=== PATIENT | female | born 1940 | race Caucasian/White ===

== ENCOUNTER 2020-09-21 15:48 | Observation (INO) | payer MEDICARE, OTHER ==
[2020-09-21] MEDS ORDERED: SODIUM CHLORIDE 0.9% 1,000 ML IV STA (16:35)
--- NOTE | 2020-09-21 16:38 | ED ---
General Adult HPI - General Chief complaint: Urogenital Stated complaint: Poss UTI/Chills Time Seen by Provider: 09/21/20 16:23 Source: patient Mode of arrival: wheelchair Limitations: no limitations - History of Present Illness Initial comments: Dictation was produced using [employer] dictation software. please excuse any grammatical, word or spelling errors. This patient was cared for during a federal and state declared state of emergency secondary to Covid 19 Chief Complaint: 80-year-old female past medical history of UTI sepsis, fi bromyalgia presents to the emergency department for nausea, urinary symptoms and chills. History of Present Illness: Patient is a 80-year-old female she's been having urinary symptoms for the last 2 days. She states she has history of UTI sepsis causing her to be hospitalized. She states that the time she was hospitalized she is having significant encephalopathy was admitted to the hospital for approximately 4-5 days. Her last today she's been having urinary symptoms. Evaluated at the urgent care and was started on Macrobid. Patient states that she was seen at urgent care last night. Today she started having constitutional symptoms. Her to come to the emergency department. She is accompanied by her daughter. Patient is afraid of becoming septic and prompting her to be more proactive about her health and coming to the emergency department today. She denies any respiratory symptoms. No cough sore throat and runny nose. The ROS documented in this emergency department record has been reviewed and confirmed by me. Those systems with pertinent positive or negative responses have been documented in the HPI. All other systems are other negative and/or noncontributory. PHYSICAL EXAM: General Impression: Alert and oriented x3, not in acute distress HEENT: Normocephalic atraumatic, extra-ocular movements intact, pupils equal and reactive to light bilaterally, mucous membranes moist. Cardiovascular: Heart regular rate and rhythm Chest: Able to complete full sentences, no retractions, no tachypnea Abdomen: abdomen soft, non-tender, non-distended, no organomegaly Musculoskeletal: Pulses present and equal in all extremities, no peripheral edema Motor: no focal deficits noted Neurological: CN II-XII grossly intact, no focal motor or sensory deficits noted Skin: Intact with no visualized rashes Psych: Normal affect and mood ED course: 80-year-old female presents with concerns of UTI sepsis. She was diagnosed with urinary tract infection at urgent care last night. She is currently on Macrobid. Vital Signs upon arrival are within acceptable limits. Physical examination is benign. Laboratory evaluation obtained. CBC unremarkable. Metabolic panel is for the most part unremarkable except for lactic acidosis of 2.9. Urinalysis shows 9 white blood cells were 19 squamous epithelial cells. Patient reevaluated bedside approximate 7:10 PM in stable medical condition. Patient however began complaining of epigastric abdominal pain. Her abdominal exam was positive for mild tenderness to palpation in the left upper quadrant region. Patient denies any history of abdominal surgery. Her abdominal labs are unremarkable. Acute abdominal series shows no acute processes. Patient given GI cocktail. Patient be admitted for Lactic acidosis and medical monitoring. Patient ordered for intravenous fluids case discussed with Sound physician Dr. Martin Was went except patient's care. EKG interpretation: Ventricular rate 1, normal sinus rhythm, VA interval 182, QRS 90, QTC 484. No VA prolongation, no QTC prolongation, no ST or T-wave changes noted. No old EKG for comparison. Overall, this EKG is unremarkable - Related Data Home Medications Medication Instructions Recorded Confirmed Allopurinol [Zyloprim] 100 mg PO DAILY 09/21/20 09/21/20 Aspirin EC [Ecotrin Low Dose] 81 mg PO DAILY 09/21/20 09/21/20 Baclofen [Lioresal] 10 mg PO HS 09/21/20 09/21/20 Ergocalciferol (Vitamin D2) 50 mcg PO DAILY 09/21/20 09/21/20 [Vitamin D2 (2000 Iu)] Famotidine [Pepcid] 20 mg PO HS 09/21/20 09/21/20 HYDROcodone/APAP 5-325MG [[place] 1 tab PO Q8H PRN 09/21/20 09/21/20 5-325] Losartan [Cozaar] 100 mg PO DAILY 09/21/20 09/21/20 Melatonin 10 mg PO HS 09/21/20 09/21/20 Morphine Sulfate ER [Ms Contin] 15 mg PO Q12HR 09/21/20 09/21/20 Multivitamins, Thera [Multivitamin 1 tab PO DAILY 09/21/20 09/21/20 (formulary)] Nitrofurantoin Monohyd/M-Cryst 100 mg PO Q12HR 09/21/20 09/21/20 [Macrobid] Omeprazole 40 mg PO DAILY 09/21/20 09/21/20 Pregabalin [Lyrica] 150 mg PO BID 09/21/20 09/21/20 Verapamil Sr [Isoptin Sr] 120 mg PO HS 09/21/20 09/21/20 Allergies Allergy/AdvReac Type Severity Reaction Status Date / Time cephalexin [From Keflex] AdvReac Rash/Hives Verified 09/21/20 16:59 clindamycin AdvReac Rash/Hives Verified 09/21/20 16:59 oxybutynin [From Ditropan] AdvReac Hallucinati Verified 09/21/20 16:59 ons Review of Systems ROS Statement: Those systems with pertinent positive or pertinent negative responses have been documented in the HPI. ROS Other: All systems not noted in ROS Statement are negative. Past Medical History Past Medical History: Hypertension Additional Past Medical History / Comment(s): UTI, fibromylagia, respiroaty failure History of Any Multi-Drug Resistant Organisms: None Reported Past Surgical History: Back Surgery Past Psychological History: No Psychological Hx Reported Smoking Status: Never smoker Past Alcohol Use History: None Reported Past Drug Use History: None Reported General Exam Limitations: no limitations Course Vital Signs 09/21/20 15:52 Temperature 97.5 F L Pulse Rate 95 Respiratory 18 Rate Blood Pressure 152/83 O2 Sat by Pulse 95 Oximetry Medical Decision Making - Lab Data Result diagrams: 09/21/20 16:36 09/21/20 16:36 Lab Results 09/21/20 09/21/20 09/21/20 Range/Units 16:36 16:36 16:36 WBC 6.6 (3.8-10.6) k/uL RBC 5.40 (3.80-5.40) m/uL Hgb 16.1 H (11.4-16.0) gm/dL Hct 48.1 H (34.0-46.0) % MCV 89.0 (80.0-100.0) fL MCH 29.9 (25.0-35.0) pg MCHC 33.5 (31.0-37.0) g/dL RDW 14.1 (11.5-15.5) % Plt Count 273 (150-450) k/uL MPV 7.6 Neutrophils % 71 % Lymphocytes % 17 % Monocytes % 7 % Eosinophils % 3 % Basophils % 1 % Neutrophils # 4.7 (1.3-7.7) k/uL Lymphocytes # 1.1 (1.0-4.8) k/uL Monocytes # 0.5 (0-1.0) k/uL Eosinophils # 0.2 (0-0.7) k/uL Basophils # 0.1 (0-0.2) k/uL Sodium 139 (137-145) mmol/L Potassium 4.5 (3.5-5.1) mmol/L Chloride 103 (98-107) mmol/L Carbon Dioxide 25 (22-30) mmol/L Anion Gap 11 mmol/L BUN 12 (7-17) mg/dL Creatinine 0.67 (0.52-1.04) mg/dL Est GFR (CKD-EPI)AfAm >90 (>60 ml/min/1.73 sqM) Est GFR (CKD-EPI)NonAf 85 (>60 ml/min/1.73 sqM) Glucose 149 H (74-99) mg/dL Lactic Ac Sepsis Rflx Plasma Lactic Acid [place]ico (0.7-2.0) mmol/L Calcium 10.2 (8.4-10.2) mg/dL Total Bilirubin 0.6 (0.2-1.3) mg/dL AST 39 H (14-36) U/L ALT 26 (4-34) U/L Alkaline Phosphatase 65 (38-126) U/L Total Protein 7.6 (6.3-8.2) g/dL Albumin 4.4 (3.5-5.0) g/dL Lipase 77 (23-300) U/L Urine Color Light Brown Urine Appearance Cloudy H (Clear) Urine pH 8.0 (5.0-8.0) Ur Specific [place] 1.020 (1.001-1.035) Urine Protein 1+ H (Negative) Urine Glucose (UA) Negative (Negative) Urine Ketones Negative (Negative) Urine Blood Negative (Negative) Urine Nitrite Negative (Negative) Urine Bilirubin Negative (Negative) Urine Urobilinogen <2.0 (<2.0) mg/dL Ur Leukocyte Esterase Trace H (Negative) Urine WBC 9 H (0-5) /hpf Ur Squamous Epith Cells 19 H (0-4) /hpf Urine Bacteria Rare H (None) /hpf Urine Mucus Rare H (None) /hpf 02/11/21 02/11/21 Range/Units 16:36 17:15 WBC (3.8-10.6) k/uL RBC (3.80-5.40) m/uL Hgb (11.4-16.0) gm/dL Hct (34.0-46.0) % MCV (80.0-100.0) fL MCH (25.0-35.0) pg MCHC (31.0-37.0) g/dL RDW (11.5-15.5) % Plt Count (150-450) k/uL MPV Neutrophils % % Lymphocytes % % Monocytes % % Eosinophils % % Basophils % % Neutrophils # (1.3-7.7) k/uL Lymphocytes # (1.0-4.8) k/uL Monocytes # (0-1.0) k/uL Eosinophils # (0-0.7) k/uL Basophils # (0-0.2) k/uL Sodium (137-145) mmol/L Potassium (3.5-5.1) mmol/L Chloride (98-107) mmol/L Carbon Dioxide (22-30) mmol/L Anion Gap mmol/L BUN (7-17) mg/dL Creatinine (0.52-1.04) mg/dL Est GFR (CKD-EPI)AfAm (>60 ml/min/1.73 sqM) Est GFR (CKD-EPI)NonAf (>60 ml/min/1.73 sqM) Glucose (74-99) mg/dL Lactic Ac Sepsis Rflx Y Plasma Lactic Acid [place] 2.9 H* (0.7-2.0) mmol/L Calcium (8.4-10.2) mg/dL Total Bilirubin (0.2-1.3) mg/dL AST (14-36) U/L ALT (4-34) U/L Alkaline Phosphatase (38-126) U/L Total Protein (6.3-8.2) g/dL Albumin (3.5-5.0) g/dL Lipase (23-300) U/L Urine Color Urine Appearance (Clear) Urine pH (5.0-8.0) Ur Specific [place] (1.001-1.035) Urine Protein (Negative) Urine Glucose (UA) (Negative) Urine Ketones (Negative) Urine Blood (Negative) Urine Nitrite (Negative) Urine Bilirubin (Negative) Urine Urobilinogen (<2.0) mg/dL Ur Leukocyte Esterase (Negative) Urine WBC (0-5) /hpf Ur Squamous Epith Cells (0-4) /hpf Urine Bacteria (None) /hpf Urine Mucus (None) /hpf Disposition Clinical Impression: Chills (without fever), Epigastric pain Disposition: ADMITTED IP TO THIS [facility] Condition: Fair Decision Time: 20:02
[2020-09-21 16:58] LABS: Basophils # (A) 0.1 k/uL (0-0.2); Basophils % (A) 1 %; Eosinophils # (A) 0.2 k/uL (0-0.7); Eosinophils % (A) 3 %; HCT 48.1 % (34.0-46.0); HGB 16.1 gm/dL (11.4-16.0); Lymphocytes # (A) 1.1 k/uL (1.0-4.8); Lymphocytes % (A) 17 %; MCH 29.9 pg (25.0-35.0); MCHC 33.5 g/dL (31.0-37.0); Mean Platelet Volume 7.6; Monocytes # (A) 0.5 k/uL (0-1.0); Monocytes % (A) 7 %; Neutrophils # (A) 4.7 k/uL (1.3-7.7); Neutrophils % (A) 71 %; Platelet Count 273 k/uL (150-450); RDW 14.1 % (11.5-15.5); WBC 6.6 k/uL (3.8-10.6)
[2020-09-21 17:09] LABS: ALT 26 U/L (4-34); AST 39 U/L (14-36); African American GFR (CKD) >90 (>60 ml/min/1.73 sqM); Albumin 4.4 g/dL (3.5-5.0); Alkaline Phosphatase 65 U/L (38-126); Anion Gap 11 mmol/L; Blood Urea Nitrogen 12 mg/dL (7-17); Calcium 10.2 mg/dL (8.4-10.2); Carbon Dioxide 25 mmol/L (22-30); Chloride 103 mmol/L (98-107); Glucose 149 mg/dL (74-99); Lipase 77 U/L (23-300); Non-African American GFR(CKD) 85 (>60 ml/min/1.73 sqM); Potassium 4.5 mmol/L (3.5-5.1); Sodium 139 mmol/L (137-145); Total Bilirubin 0.6 mg/dL (0.2-1.3); Total Protein 7.6 g/dL (6.3-8.2)
[2020-09-21 18:29] LABS: Appearance,Urine Cloudy (Clear); Bacteria,Urine Rare /hpf; Bilirubin,Urine Negative (Negative); Blood,Urine Negative (Negative); Color,Urine Light Brown; Glucose,Urine (UA) Negative (Negative); Ketones,Urine Negative (Negative); Leukocyte Esterase,Urine Trace (Negative); Mucus,Urine Rare /hpf; Nitrite,Urine Negative (Negative); Protein,Urine 1+ (Negative); Squamous Epithelial Cell,Urine 19 /hpf (0-4); Urobilinogen,Urine <2.0 mg/dL (<2.0); WBC,Urine 9 /hpf (0-5)
[2020-09-21] MEDS ORDERED: NALOXONE 0.4 MG/ML 1 ML VIAL IV PRN (19:20)
[2020-09-21] MEDS ORDERED: ONDANSETRON 4 MG/2 ML VIAL IVP PRN (19:20)
[2020-09-21] MEDS ORDERED: MAG HYDROX/AL HYDROX/SIMETH 30 ML, HYOSCYAMINE ELIXIR 10 ML, LIDOCAINE VISCOUS 2% 10 ML PO STA ×3 (19:27)
--- NOTE | 2020-09-21 19:35 | XR ---
EXAMINATION TYPE: XR abdomen acute w cxr DATE OF EXAM: 09/21/2020 COMPARISON: NONE HISTORY: Abdominal pain and vomiting. TECHNIQUE: Supine and upright AP views of the abdomen with PA chest. FINDINGS: There is a nonobstructive bowel gas pattern. No free air. Neurostimulator device with leads overlying the thoracic spine seen. There is moderate to severe lumbar spondylosis with moderate levoconvex sco liosis. There is mild bibasilar atelectasis. Otherwise the lungs are clear. Borderline cardiomegaly. No pleur al effusion or pneumothorax. No acute osseous abnormality. IMPRESSION: No acute process.
[2020-09-21] MEDS: SODIUM CHLORIDE 0.9% 1,000 ML IV SCH (22:09)
[2020-09-21] MEDS ORDERED: IOPAMIDOL CONTRAST (ORAL USE) VIAL PO PRN ×2 (23:27→23:32)
--- NOTE | 2020-09-21 23:43 | P.HPIM ---
History of Present Illness H&P Date: 09/21/20 The patient is a 80-year-old female with a PMH of hypertension, peptic ulcer disease, and fibromyalgia who presented to the emergency room with complaints of abdominal pain and chills. The patient reports that she was previously hospitalized 2 months ago for sepsis with UTI and had recent recurrence of similar symptoms. She reported that 2 days ago, she developed urinary incontinence and urinary frequency. She visited an urgent care yesterday and was prescribed Macrobid which did not alleviate her symptoms. She then developed chills earlier today at which time she became concerned and came to the emergency room. She also reports diffuse 8/10 upper abdominal pain, burning in nature, which she hasn't previously experienced. The pain is radiating throughout the abdomen without alleviating or exacerbating features. She also reported a single episode of non-bloody emesis earlier today. She denied dysuria, hematuria, or diarrhea. Also denied chest pain, SOB, palpitations, or LE edema. The patient's laboratory evaluation from the emergency room was reviewed and was remarkable for a lactic acid of 2.9 AST 39, hemoglobin 16.1, and an abnormal UA. Review of Systems Pertinent positives and negatives as discussed in HPI, a complete review of systems was performed and all other systems are negative. Past Medical History Past Medical History: Hypertension Additional Past Medical History / Comment(s): UTI, fibromylagia, respiroaty failure History of Any Multi-Drug Resistant Organisms: None Reported Past Surgical History: Back Surgery Past Psychological History: No Psychological Hx Reported Smoking Status: Never smoker Past Alcohol Use History: None Reported Past Drug Use History: None Reported Medications and Allergies Home Medications Medication Instructions Recorded Confirmed Type Allopurinol [Zyloprim] 100 mg PO DAILY 09/21/20 09/21/20 History Aspirin EC [Ecotrin Low Dose] 81 mg PO DAILY 09/21/20 09/21/20 History Baclofen [Lioresal] 10 mg PO HS 09/21/20 09/21/20 History Ergocalciferol (Vitamin D2) 50 mcg PO DAILY 09/21/20 09/21/20 History [Vitamin D2 (2000 Iu)] Famotidine [Pepcid] 20 mg PO HS 09/21/20 09/21/20 History HYDROcodone/APAP 5-325MG [[place] 1 tab PO Q8H PRN 09/21/20 09/21/20 History 5-325] Losartan [Cozaar] 100 mg PO DAILY 09/21/20 09/21/20 History Melatonin 10 mg PO HS 09/21/20 09/21/20 History Morphine Sulfate ER [Ms Contin] 15 mg PO Q12HR 09/21/20 09/21/20 History Multivitamins, Thera [Multivitamin 1 tab PO DAILY 09/21/20 09/21/20 History (formulary)] Nitrofurantoin Monohyd/M-Cryst 100 mg PO Q12HR 09/21/20 09/21/20 History [Macrobid] Omeprazole 40 mg PO DAILY 09/21/20 09/21/20 History Pregabalin [Lyrica] 150 mg PO BID 09/21/20 09/21/20 History Verapamil Sr [Isoptin Sr] 120 mg PO HS 09/21/20 09/21/20 History Allergies Allergy/AdvReac Type Severity Reaction Status Date / Time cephalexin [From Keflex] AdvReac Rash/Hives Verified 09/21/20 16:59 clindamycin AdvReac Rash/Hives Verified 09/21/20 16:59 oxybutynin [From Ditropan] AdvReac Hallucinati Verified 09/21/20 16:59 ons Physical Exam Vitals: Vital Signs Temp Pulse Resp BP Pulse Ox 09/21/20 22:09 95 18 150/77 95 09/21/20 15:52 97.5 F L 95 18 152/83 95 Intake and Output 09/21/20 09/21/20 09/21/20 06:59 14:59 22:59 Other: Weight 84.368 kg General: non toxic, no distress, appears at stated age, obese Derm: no unusual rashes/lesions no unusual ecchymoses, warm, dry Head: atraumatic, normocephalic, symmetric Eyes: EOMI, no lid lag, anicteric sclera, pupils equal round reactive to light ENT: Nose and ears atraumatic, no thrush, no pharyngeal erythema Neck: No thyromegaly, no cervical lymphadenopathy, trachea midline, supple Mouth: no lip lesion, mucus membranes moist Cardiovascular: S1S2 reg, no murmur, positive posterior tibial pulse bilateral, no edema, capillary refill less than 2 seconds Lungs: CTA bilateral, no rhonchi, no rales , no accessory muscle use Abdominal: soft, epigastric tenderness to palpation, no guarding, no appreciable organomegaly, normal bowel sounds Ext: no gross muscle atrophy, muscle strength 5 out of 5 in all 4 extremities grossly, no contractures, Neuro: CN II-XI grossly intact, light touch intact all 4 extremities, finger to nose within normal limits, Psych: Alert, oriented, appropriate affect Results CBC & Chem 7: 09/21/20 16:36 09/21/20 16:36 Labs: Abnormal Lab Results - Last 24 Hours (Table) 09/21/20 09/21/20 09/21/20 Range/Units 16:36 16:36 16:36 Hgb 16.1 H (11.4-16.0) gm/dL Hct 48.1 H (34.0-46.0) % Glucose 149 H (74-99) mg/dL Plasma Lactic Acid [place] (0.7-2.0) mmol/L AST 39 H (14-36) U/L Urine Appearance Cloudy H (Clear) Urine Protein 1+ H (Negative) Ur Leukocyte Esterase Trace H (Negative) Urine WBC 9 H (0-5) /hpf Ur Squamous Epith Cells 19 H (0-4) /hpf Urine Bacteria Rare H (None) /hpf Urine Mucus Rare H (None) /hpf 09/21/20 09/21/20 Range/Units 16:36 19:34 Hgb (11.4-16.0) gm/dL Hct (34.0-46.0) % Glucose (74-99) mg/dL Plasma Lactic Acid [place] 2.9 H* 2.3 H* (0.7-2.0) mmol/L AST (14-36) U/L Urine Appearance (Clear) Urine Protein (Negative) Ur Leukocyte Esterase (Negative) Urine WBC (0-5) /hpf Ur Squamous Epith Cells (0-4) /hpf Urine Bacteria (None) /hpf Urine Mucus (None) /hpf Assessment and Plan Plan: UTI in setting of chronic urinary retention and incontinence -Start Levaquin (allergic to cephalosporins) -F/u Urine culture -Urology consult Lactic acidosis -Monitor to resolution -C/w IVFs Abdominal pain, suspected secondary to peptic ulcer disease -Continue with Maalox, Protonix, and Zofran Hyperglycemia -Check A1C -No hx of DM Chronic conditions: Hypertension -Continue with home medications DVT prophylaxis -Heparin subq The patient is admitted with an anticipated less than 2 midnight stay for evaluation of UTI CODE STATUS: Full Code Discussed with: Patient Anticipated discharge date: in am Anticipated discharge place: Home A total of 35 minutes was spent on the care of this complex patient more than 50% of the time was spent in counseling and care coordination.
[2020-09-21] MEDS ORDERED: LEVOFLOXACIN 250 MG TAB PO SCH (23:45)
[2020-09-22] MEDS: HEPARIN SODIUM,PORCINE 5,000 UNIT/ML 1 ML VIAL SQ SCH ×3 (00:05→15:23)
[2020-09-22] MEDS: HYDROcodone/APAP 5-325MG 1 EACH TAB PO PRN (01:04)
[2020-09-22] MEDS ORDERED: SODIUM CHLORIDE 0.9% 500 ML 500 ML IV ONE (02:08)
[2020-09-22] MEDS: SODIUM CHLORIDE 0.9% 1,000 ML IV SCH (04:28)
[2020-09-22] MEDS ORDERED: MAG HYDROX/AL HYDROX/SIMETH 30 ML, HYOSCYAMINE ELIXIR 10 ML, LIDOCAINE VISCOUS 2% 10 ML PO ONE ×3 (04:33)
[2020-09-22] MEDS ORDERED: PANTOPRAZOLE 40 MG TABLET PO SCH (07:30)
[2020-09-22] MEDS: PREGABALIN 50 MG CAP PO SCH ×2 (08:04→21:16)
[2020-09-22] MEDS: LOSARTAN 50 MG TAB PO SCH (08:05)
[2020-09-22] MEDS: ASPIRIN 81 MG PO SCH (08:05)
[2020-09-22] MEDS ORDERED: IOPAMIDOL CONTRAST (ORAL USE) VIAL PO PRN (08:58)
--- NOTE | 2020-09-22 10:20 | P.CONS ---
History of Present Illness - Reason for Consult Consult date: 09/22/20 Wound care - History of Present Illness This is a 80-year-old patient being seen on for nonhealing ulceration to the right back/flank area. Patient states back in 2014 she underwent a procedure to relieve discomfort to her SI joint and developed seroma. At that time she had surgical intervention resulting in a wound VAC for multiple weeks until closure. Patient states that once in a while the area we'll continue to have bloody drainage from the site. Most recently was a few nights ago. Upon examination patient has a healed, scabbed ulceration to the right back flank area no drainage noted. Patient's past medical history significant for hypertension, back pain. Patient denies diabetes and a lifelong nonsmoker Review Of Systems: Constitutional: No fever, no chills, no night sweats. No weight change. No weakness, fatigue or lethargy. No daytime sleepiness. Integumentary:reports wounds, no lesions. No rash or pruritus. No unusual bruising. No change in hair or nails. Physical exam: General Appearance: Alert, cooperative, no distress, appears stated age. Skin: See HPI all other Skin color, texture, tugor normal, no rashes or lesions. Neurologic: Alert oriented x3 Assessment/plan: 1. Nonhealing ulceration limited to skin breakdown: Epithelialized at this time. Apply triad for prevention daily. Thank you for the consultation any questions please contact the wound care center DNP note has been reviewed and discussed with Dr. Fuentes and the impression and plan of care has been directed as dictated. Past Medical History Past Medical History: Hypertension Additional Past Medical History / Comment(s): UTI, fibromylagia, respiroaty failure History of Any Multi-Drug Resistant Organisms: None Reported Past Surgical History: Back Surgery Additional Past Surgical History / Comment(s): 5 back surgery since 2014. Past Anesthesia/Blood Transfusion Reactions: No Reported Reaction Past Psychological History: No Psychological Hx Reported Smoking Status: Never smoker Past Alcohol Use History: None Reported Past Drug Use History: None Reported Medications and Allergies Home Medications Medication Instructions Recorded Confirmed Type Allopurinol [Zyloprim] 100 mg PO DAILY 09/21/20 09/21/20 History Aspirin EC [Ecotrin Low Dose] 81 mg PO DAILY 09/21/20 09/21/20 History Baclofen [Lioresal] 10 mg PO HS 09/21/20 09/21/20 History Ergocalciferol (Vitamin D2) 50 mcg PO DAILY 09/21/20 09/21/20 History [Vitamin D2 (2000 Iu)] Famotidine [Pepcid] 20 mg PO HS 09/21/20 09/21/20 History HYDROcodone/APAP 5-325MG [[place] 1 tab PO Q8H PRN 09/21/20 09/21/20 History 5-325] Losartan [Cozaar] 100 mg PO DAILY 09/21/20 09/21/20 History Melatonin 10 mg PO HS 09/21/20 09/21/20 History Morphine Sulfate ER [Ms Contin] 15 mg PO Q12HR 09/21/20 09/21/20 History Multivitamins, Thera [Multivitamin 1 tab PO DAILY 09/21/20 09/21/20 History (formulary)] Nitrofurantoin Monohyd/M-Cryst 100 mg PO Q12HR 09/21/20 09/21/20 History [Macrobid] Omeprazole 40 mg PO DAILY 09/21/20 09/21/20 History Pregabalin [Lyrica] 150 mg PO BID 09/21/20 09/21/20 History Verapamil Sr [Isoptin Sr] 120 mg PO HS 09/21/20 09/21/20 History Allergies Allergy/AdvReac Type Severity Reaction Status Date / Time cephalexin [From Keflex] AdvReac Rash/Hives Verified 09/21/20 16:59 clindamycin AdvReac Rash/Hives Verified 09/21/20 16:59 oxybutynin [From Ditropan] AdvReac Hallucinati Verified 09/21/20 16:59 ons Physical Exam Vitals: Vital Signs Temp Pulse Pulse Resp BP BP Pulse Ox 09/22/20 07:06 97.8 F 100 18 172/85 93 L 09/22/20 00:04 98.5 F 94 16 136/80 93 L 09/21/20 22:09 95 18 150/77 95 09/21/20 15:52 97.5 F L 95 18 152/83 95 Intake and Output 09/21/20 09/22/20 09/22/20 22:59 06:59 14:59 Other: Voiding Method Toilet # Voids 1 Weight 84.368 kg 84.368 kg Results CBC & Chem 7: 09/21/20 16:36 09/21/20 16:36 Labs: Abnormal Lab Results - Last 24 Hours (Table) 09/21/20 09/21/20 09/21/20 Range/Units 16:36 16:36 16:36 Hgb 16.1 H (11.4-16.0) gm/dL Hct 48.1 H (34.0-46.0) % Glucose 149 H (74-99) mg/dL Plasma Lactic Acid [place] (0.7-2.0) mmol/L AST 39 H (14-36) U/L Urine Appearance Cloudy H (Clear) Urine Protein 1+ H (Negative) Ur Leukocyte Esterase Trace H (Negative) Urine WBC 9 H (0-5) /hpf Ur Squamous Epith Cells 19 H (0-4) /hpf Urine Bacteria Rare H (None) /hpf Urine Mucus Rare H (None) /hpf 09/21/20 09/21/20 09/21/20 Range/Units 16:36 19:34 22:37 Hgb (11.4-16.0) gm/dL Hct (34.0-46.0) % Glucose (74-99) mg/dL Plasma Lactic Acid [place] 2.9 H* 2.3 H* 2.6 H* (0.7-2.0) mmol/L AST (14-36) U/L Urine Appearance (Clear) Urine Protein (Negative) Ur Leukocyte Esterase (Negative) Urine WBC (0-5) /hpf Ur Squamous Epith Cells (0-4) /hpf Urine Bacteria (None) /hpf Urine Mucus (None) /hpf 09/22/20 Range/Units 02:14 Hgb (11.4-16.0) gm/dL Hct (34.0-46.0) % Glucose (74-99) mg/dL Plasma Lactic Acid [place] 2.2 H* (0.7-2.0) mmol/L AST (14-36) U/L Urine Appearance (Clear) Urine Protein (Negative) Ur Leukocyte Esterase (Negative) Urine WBC (0-5) /hpf Ur Squamous Epith Cells (0-4) /hpf Urine Bacteria (None) /hpf Urine Mucus (None) /hpf Assessment and Plan (1) 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
--- NOTE | 2020-09-22 10:51 | CT ---
EXAMINATION TYPE: CT abdomen pelvis w con DATE OF EXAM: 09/22/2020 COMPARISON: None INDICATION: Abd pain DLP: 1719.2 mGycm, Automated exposure control for dose reduction was used. CONTRAST: 100 mL of Isovue 300. Study performed with Oral Contrast TECHNIQUE: Axial images were obtained from above the diaphragm to the pubic rami in the axial plane a t 5 mm thick sections. Reconstructed images are reviewed on the computer in the coronal plane. FINDINGS: Limited CT sections are obtained the lung bases. Some minimal scattered infiltrates can be compatibl e with subsegmental atelectasis. Note is made of coronary artery calcification.. CT ABDOMEN: Liver: Normal Spleen: Normal Pancreas: Normal Adrenal glands: The adrenal glands are normal. Gallbladder: Normal Kidneys: No masses are evident. No hydronephrosis is present. No cysts are present. 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 Aorta: Vascular calcification is within the aorta. Inferior vena cava: Normal. CT PELVIS: Minimal wall thickening may be within the sigmoid colon. Correlate for colitis. This could be related to incomplete distention. No suspicious adjacent inflammatory changes are evident. Few diverticuli w ithin the sigmoid colon. No acute diverticulitis is evident. There are loops of bowel which are inc ompletely distended or lack oral contrast limiting their evaluation. Appendix: Not identified. No suspicious dilated tubular structure inflammatory changes are evident. Urinary bladder: Normal. Genitourinary structures: Uterus and ovaries are not identified. Osseous structures: No suspicious lytic or sclerotic lesions. Degenerative changes are through the lo wer lumbar spine facets. Scoliosis is present. Degenerative disc changes present L5-S1. Minimal grade 1 spondylolisthesis of L4 and L5 may be present. Loss of disc height is present L2-3. IMPRESSIONS: 1. There may be some mild wall thickening through the sigmoid colon. Consider mild colitis. Adjacent inflammatory changes are not identified. This could be related to incomplete distention. Correlate w ith the patient's symptoms.
[2020-09-22] MEDS: HYDROPHILIC CREAM 180 GM TUBE TOPICAL SCH (12:30)
[2020-09-22 14:32] LABS: Appearance,Urine Clear (Clear); Bilirubin,Urine Negative (Negative); Blood,Urine Negative (Negative); Color,Urine Light Yellow; Glucose,Urine (UA) Negative (Negative); Ketones,Urine Negative (Negative); Leukocyte Esterase,Urine Negative (Negative); Nitrite,Urine Negative (Negative); Protein,Urine Negative (Negative); Urobilinogen,Urine <2.0 mg/dL (<2.0)
[2020-09-22] MEDS: MAG HYDROX/AL HYDROX/SIMETH 30 ML CUP PO PRN ×2 (15:23→21:23)
--- NOTE | 2020-09-22 15:25 | P.PN ---
Subjective Progress Note Date: 09/22/20 Objective - Vital Signs Vital signs: Vital Signs Temp 97.7 F 09/22/20 15:00 Pulse 89 09/22/20 15:00 Resp 16 09/22/20 15:00 BP 143/81 09/22/20 15:00 Pulse Ox 94 L 09/22/20 15:00 Intake & Output 09/21/20 09/22/20 09/22/20 18:59 06:59 18:59 Output Total 200 Balance -200 Weight 84.368 kg 84.368 kg Output: Urine 200 Other: Voiding Method Toilet Toilet # Voids 1 1 - Exam General: The patient is awake and alert, in no distress Eye: there is normal conjunctiva bilaterally. Neck: The neck is supple, there is no JVD. Cardiovascular: Normal S1-S2, no S3-S4, no murmurs. Respiratory: Lungs clear to auscultation bilaterally Gastrointestinal: Abdomen is soft, there is mild to moderate tenderness to palpation throughout the abdomen Musculoskeletal: There is no pedal edema. Neurological:. Speech is normal. Skin: Skin is warm and dry - Labs CBC & Chem 7: 09/21/20 16:36 09/21/20 16:36 Labs: Abnormal Lab Results - Last 24 Hours (Table) 09/21/20 09/21/20 09/21/20 Range/Units 16:36 16:36 16:36 Hgb 16.1 H (11.4-16.0) gm/dL Hct 48.1 H (34.0-46.0) % Glucose 149 H (74-99) mg/dL Plasma Lactic Acid [place] (0.7-2.0) mmol/L AST 39 H (14-36) U/L Urine Appearance Cloudy H (Clear) Urine Protein 1+ H (Negative) Ur Leukocyte Esterase Trace H (Negative) Urine WBC 9 H (0-5) /hpf Ur Squamous Epith Cells 19 H (0-4) /hpf Urine Bacteria Rare H (None) /hpf Urine Mucus Rare H (None) /hpf 09/21/20 09/21/20 09/21/20 Range/Units 16:36 19:34 22:37 Hgb (11.4-16.0) gm/dL Hct (34.0-46.0) % Glucose (74-99) mg/dL Plasma Lactic Acid [place] 2.9 H* 2.3 H* 2.6 H* (0.7-2.0) mmol/L AST (14-36) U/L Urine Appearance (Clear) Urine Protein (Negative) Ur Leukocyte Esterase (Negative) Urine WBC (0-5) /hpf Ur Squamous Epith Cells (0-4) /hpf Urine Bacteria (None) /hpf Urine Mucus (None) /hpf 09/22/20 Range/Units 02:14 Hgb (11.4-16.0) gm/dL Hct (34.0-46.0) % Glucose (74-99) mg/dL Plasma Lactic Acid [place] 2.2 H* (0.7-2.0) mmol/L AST (14-36) U/L Urine Appearance (Clear) Urine Protein (Negative) Ur Leukocyte Esterase (Negative) Urine WBC (0-5) /hpf Ur Squamous Epith Cells (0-4) /hpf Urine Bacteria (None) /hpf Urine Mucus (None) /hpf Assessment and Plan Assessment: This is a 80-year-old female with past medical history noted below who presented to the emergency room with abdominal pain and chills. Patient was concerned that she may have a UTI as she was recently hospitalized in July secondary to sepsis and UTI. Patient was evaluated in the ER and admitted to the hospital for further management of her medical problems noted below. 1. Abdominal pain, mostly epigastric. Described as burning sensation. Improving with GI cocktail. Patient had a history of peptic ulcer disease. I would switch her Protonix to 40 mg IV twice daily. I would consult GI for further evaluation and consideration for an EGD. 2. Diarrhea, patient had 2 episodes of diarrhea in the hospital. Stool sample sent to rule out C. diff. Computed tomography scan of the abdomen and pelvis showed questionable mild colitis involving the sigmoid colon. We will continue to monitor closely 3. History of recurrent UTI, urine sample on presentation were grossly c ontaminated. Repeat UA is negative. Patient was reassured. 4. Lactic acidosis, resolved with IV fluid hydration 5. Essential hypertension: Blood pressure within acceptable range 6. DVT prophylaxis with subcu heparin Today, I reviewed her medication list and lab work results. Discontinue Le vaquin started on admission. Continue current regimen otherwise. Awaiting GI evaluation. Awaiting C. diff screen.
[2020-09-22] MEDS: VERAPAMIL SR 120 MG TABLET.ER PO SCH (21:16)
[2020-09-22] MEDS: BACLOFEN 10 MG TAB PO SCH (21:16)
[2020-09-22] MEDS: PANTOPRAZOLE 40 MG/10 ML VIAL IVP SCH (21:16)
[2020-09-23] MEDS: HEPARIN SODIUM,PORCINE 5,000 UNIT/ML 1 ML VIAL SQ SCH ×3 (00:58→16:08)
[2020-09-23] MEDS: PANTOPRAZOLE 40 MG/10 ML VIAL IVP SCH (08:17)
[2020-09-23] MEDS: PREGABALIN 50 MG CAP PO SCH ×2 (08:18→20:32)
[2020-09-23] MEDS: LOSARTAN 50 MG TAB PO SCH (08:18)
[2020-09-23] MEDS: ASPIRIN 81 MG PO SCH (08:18)
--- NOTE | 2020-09-23 11:36 | P.PN ---
Subjective Progress Note Date: 09/23/20 Patient is still complaining of diarrhea today she reports having more than 5 bowel movements since this morning. She reported that her abdominal pain is better. No acute events overnight reported by nursing staff. Objective - Vital Signs Vital signs: Vital Signs Temp 97.7 F 09/23/20 08:10 Pulse 82 09/23/20 08:10 Resp 16 09/23/20 08:10 BP 149/92 09/23/20 08:10 Pulse Ox 93 L 09/23/20 08:10 Intake & Output 09/22/20 09/23/20 09/23/20 18:59 06:59 18:59 Output Total 200 Balance -200 Output: Urine 200 Other: Voiding Method Toilet Toilet Toilet # Voids 1 1 1 # Bowel Movements 1 - Exam General: The patient is awake and alert, in no distress Eye: there is normal conjunctiva bilaterally. Neck: The neck is supple, there is no JVD. Cardiovascular: Normal S1-S2, no S3-S4, no murmurs. Respiratory: Lungs clear to auscultation bilaterally Gastrointestinal: Abdomen is soft, there is mild to moderate tenderness to palpation throughout the abdomen Musculoskeletal: There is no pedal edema. Neurological:. Speech is normal. Skin: Skin is warm and dry - Labs CBC & Chem 7: 09/21/20 16:36 09/21/20 16:36 Labs: Abnormal Lab Results - Last 24 Hours (Table) 09/21/20 Range/Units 02:14 Hemoglobin A1c 8.0 H (4.0-6.0) % Microbiology - Last 24 Hours (Table) 09/21/20 16:36 Blood Culture - Preliminary Blood No Growth after 24 hours Assessment and Plan Assessment: This is a 80-year-old female with past medical history noted below who presented to the emergency room with abdominal pain and chills. Patient was concerned that she may have a UTI as she was recently hospitalized in July secondary to sepsis and UTI. Patient was evaluated in the ER and admitted to the hospital for further management of her medical problems noted below. 1. Abdominal pain, mostly epigastric. Described as burning sensation. Improving with GI cocktail. Patient had a history of peptic ulcer disease. I would switch her Protonix to 40 mg IV twice daily. I would consult GI for further evaluation and consideration for an EGD. 2. Diarrhea, patient had multiple episodes of diarrhea during this hospitalization. C. diff screen is negative.. Computed tomography scan of the abdomen and pelvis showed questionable mild colitis involving the sigmoid colon. We will continue to monitor closely. Appreciate GI recommendations. Lomotil as needed every 6 hours. 3. History of recurrent UTI, urine sample on presentation were grossly contaminated. Repeat UA is negative. Patient was reassured. 4. Lactic acidosis, resolved with IV fluid hydration 5. Essential hypertension: Blood pressure within acceptable range 6. DVT prophylaxis with subcu heparin Today, I reviewed her medication list and lab work results. Awaiting BMP and magnesium level from today. Continue to monitor patient continued her diarrhea improved. Anticipate discharge home tomorrow
[2020-09-23 12:16] LABS: African American GFR (CKD) >90 (>60 ml/min/1.73 sqM); Anion Gap 11 mmol/L; Blood Urea Nitrogen 6 mg/dL (7-17); Carbon Dioxide 25 mmol/L (22-30); Chloride 103 mmol/L (98-107); Glucose 161 mg/dL (74-99); Magnesium 1.7 mg/dL (1.6-2.3); Non-African American GFR(CKD) 83 (>60 ml/min/1.73 sqM); Potassium 3.8 mmol/L (3.5-5.1); Sodium 139 mmol/L (137-145)
--- NOTE | 2020-09-23 12:53 | CONS ---
CONSULTATION DATE OF DICTATION: September 23, 2020. REQUESTING PHYSICIAN: Dr. Martin. REASON FOR CONSULTATION: Abdominal pain, nausea, diarrhea. HISTORY OF PRESENT ILLNESS: The patient is a 80-year-old pleasant white female with history of fibromyalgia, hypertension, recurrent urinary tract infection, admitted to the hospital complaining of abdominal pain associated with nausea, diarrhea for the last 4-5 days duration. The patient lives in [place], [place] and around Thanksgiving time she was diagnosed with acute urinary tract infection. She presented with altered mental status with delusions, fever, chills, and was treated with antibiotics. She was subsequently taken by her daughter to [place] to provide care and while she was there, she has been to the emergency room and diagnosed with UTI again. Her antibiotics were changed a couple of times and recently moved to [place] to stay with her other daughter. While here, she has been complaining of some epigastric discomfort associated with some nausea and for the last 2 days started having severe loose bowel movements. She went about 15 times yesterday. She denies any rectal bleeding or melena. She came to the emergency room and she had a CT of the abdomen and pelvis done yesterday that showed some mild wall thickening of the sigmoid colon suspicious for mild colitis. Otherwise it was unremarkable. She was started on a clear liquid diet. This morning she is feeling better. She has history of gastroesophageal reflux disease and has been on Prilosec at home. She denies any recent NSAID use. No prior history of peptic ulcer disease. Her last EGD was done by her GI physician in [place] about 3 or 4 years ago and was diagnosed with gastroesophageal reflux disease. She does recall having a colonoscopy about 3 or 4 years ago and was noted to have small polyps. PAST MEDICAL HISTORY: Significant for hypertension, hyperlipidemia, gastroesophageal reflux disease. Gout. MEDICATIONS: Medications at home include Isoptin, Relica, omeprazole, multivitamin, morphine sulfate, melatonin, Cozaar, [place] Pepcid, vitamin D2, Lioresal, Ecotrin, Zyloprim. ALLERGIES: CLINDAMYCIN, DITROPAN, KEFLEX. SOCIAL HISTORY: No smoking. No alcohol use. FAMILY HISTORY: Unremarkable. PAST SURGICAL HISTORY: Back surgery, EGD, colonoscopy. REVIEW OF SYSTEMS: CARDIOPULMONARY: No chest pain or shortness of breath. : No dysuria or hematuria except for recurrent urinary tract infection. NEUROLOGY unremarkable. PSYCHIATRIC unremarkable. ENT/VISION: Unremarkable. CONSTITUTIONAL: No recent weight loss. No fever, chills, night sweats. GI as mentioned above. HEMATOLOGY unremarkable. ENDOCRINE unremarkable. PHYSICAL EXAMINATION: She appears comfortable. Vital signs stable. Blood pressure 149/92, pulse rate 85, temperature 97.7. HEENT examination unremarkable. Conjunctivae pink. Sclerae anicteric. Oral cavity no lesions. NECK: No JVD or lymph node enlargement. CHEST was clear to auscultation. HEART: Regular rate and rhythm. ABDOMEN: Soft. There was mild tenderness in the epigastric area. Rest of the abdomen was benign. Bowel sounds are positive. No organomegaly. EXTREMITIES: No pedal edema. SKIN: No rashes. NEURO: She is alert and oriented x3. No focal deficits. LABS: From yesterday: WBC 6.6, hemoglobin 16.1, platelets normal. Basic metabolic panel is within normal limits. BUN and creatinine are normal. Lactic acid was 2.6, it was normal this morning. C difficile toxin was negative. Coronavirus PCR is negative. IMPRESSION: 1. Epigastric pain associated with nausea and diarrhea for the last 3-4 days duration, probably secondary to medication-related side effects. The patient has been on different antibiotics for urinary tract infection for the last [address] of the abdomen done yesterday showed some mild thickening of the sigmoid colon, but otherwise it was unremarkable. The patient does have a longstanding history of gastroesophageal reflux disease and some of her epigastric pain could be related to reflux symptoms and possibly gastritis or side effects related to medications. 2. Diarrhea for the last 3-4 days duration. C diff negative, possibly antibiotic related. 3. Recurrent urinary tract infection. The patient currently on Levaquin. 4. Mild lactic acidosis, which has improved. 5. History of gastroesophageal reflux disease on Prilosec and Pepcid at home. 6. History of fibromyalgia. RECOMMENDATIONS: 1. Continue with symptomatic and supportive care. 2. Continue Protonix 40 mg twice daily. 3. Imodium as needed if she has recurrent diarrhea. 4. Since the symptoms are already improving, no plans on any endoscopic intervention at the present time. 5. We will continue to follow with you closely. Thank you for this consultation. MMODL / IJN: [id number] /
[2020-09-23] MEDS: DIPHENOX-ATROP 2.5-0.025 MG 1 EACH TAB PO PRN (13:07)
[2020-09-23] MEDS: HYDROPHILIC CREAM 180 GM TUBE TOPICAL SCH (13:07)
[2020-09-23] MEDS: MAG HYDROX/AL HYDROX/SIMETH 30 ML CUP PO PRN ×2 (15:12→20:32)
--- NOTE | 2020-09-23 16:21 | P.GSCN ---
History of Present Illness Consult date: 09/23/20 Reason for Consult: Urge incontinence, recurrent UTI Requesting physician: Bettie Martin History of present illness: The patient is a 80-year-old white female with a history of recurrent UTIs and urge incontinence. Her urologist is Dr. Kunz in [place]. Treatment with Myrbetriq was unsuccessful. Her urge incontinence was then treated with Ditropan in June 2020. She said that it worked exceptionally well, as her urge incontinence resolved for 10 days. However, she was subsequently hospitalized with a UTI with sepsis. She was told at that time that she was emptying her bladder incompletely. Her overactive bladder is currently not being treated, and she is experiencing urge incontinence. She completed a course of Macrobid in august for a UTI. She is now admitted with diarrhea. Review of Systems - Gastrointestinal Reports diarrhea - Genitourinary Genitourinary: Reports urge incontinence, Denies dysuria, Denies hematuria Past Medical History Past Medical History: Hypertension Additional Past Medical History / Comment(s): UTI, fibromylagia, respiroaty failure History of Any Multi-Drug Resistant Organisms: None Reported Past Surgical History: Back Surgery Additional Past Surgical History / Comment(s): 5 back surgery since 2014. Past Anesthesia/Blood Transfusion Reactions: No Reported Reaction Past Psychological History: No Psychological Hx Reported Smoking Status: Never smoker Past Alcohol Use History: None Reported Past Drug Use History: None Reported Medications and Allergies Home Medications Medication Instructions Recorded Confirmed Type Allopurinol [Zyloprim] 100 mg PO DAILY 09/21/20 09/21/20 History Aspirin EC [Ecotrin Low Dose] 81 mg PO DAILY 09/21/20 09/21/20 History Baclofen [Lioresal] 10 mg PO HS 09/21/20 09/21/20 History Ergocalciferol (Vitamin D2) 50 mcg PO DAILY 09/21/20 09/21/20 History [Vitamin D2 (2000 Iu)] Famotidine [Pepcid] 20 mg PO HS 09/21/20 09/21/20 History HYDROcodone/APAP 5-325MG [[place] 1 tab PO Q8H PRN 09/21/20 09/21/20 History 5-325] Losartan [Cozaar] 100 mg PO DAILY 09/21/20 09/21/20 History Melatonin 10 mg PO HS 09/21/20 09/21/20 History Morphine Sulfate ER [Ms Contin] 15 mg PO Q12HR 09/21/20 09/21/20 History Multivitamins, Thera [Multivitamin 1 tab PO DAILY 09/21/20 09/21/20 History (formulary)] Nitrofurantoin Monohyd/M-Cryst 100 mg PO Q12HR 09/21/20 09/21/20 History [Macrobid] Omeprazole 40 mg PO DAILY 09/21/20 09/21/20 History Pregabalin [Lyrica] 150 mg PO BID 09/21/20 09/21/20 History Verapamil Sr [Isoptin Sr] 120 mg PO HS 09/21/20 09/21/20 History Allergies Allergy/AdvReac Type Severity Reaction Status Date / Time cephalexin [From Keflex] AdvReac Rash/Hives Verified 09/21/20 16:59 clindamycin AdvReac Rash/Hives Verified 09/21/20 16:59 oxybutynin [From Ditropan] AdvReac Hallucinati Verified 09/21/20 16:59 ons Surgical - Exam Vital Signs Temp Pulse Resp BP Pulse Ox 97.5 F L 95 18 152/83 95 09/21/20 15:52 09/21/20 15:52 09/21/20 15:52 09/21/20 15:52 09/21/20 15:52 - General well developed, well nourished, no distress - Respiratory normal respiratory effort - Abdomen Abdomen: soft, non tender, no guarding, no rigid, no rebound - Psychiatric oriented to time, oriented to person, oriented to place, speech is normal, memory intact Results - Labs 09/21/20 16:36 09/23/20 12:00 Abnormal Lab Results - Last 24 Hours (Table) 09/21/20 09/23/20 Range/Units 02:14 12:00 BUN 6 L (7-17) mg/dL Glucose 161 H (74-99) mg/dL Hemoglobin A1c 8.0 H (4.0-6.0) % Microbiology - Last 24 Hours (Table) 09/21/20 16:36 Blood Culture - Preliminary Blood No Growth after 24 hours Diabetes panel 09/21/20 09/23/20 Range/Units 02:14 12:00 Sodium 139 (137-145) mmol/L Potassium 3.8 (3.5-5.1) mmol/L Chloride 103 (98-107) mmol/L Carbon Dioxide 25 (22-30) mmol/L BUN 6 L (7-17) mg/dL Creatinine 0.70 (0.52-1.04) mg/dL Glucose 161 H (74-99) mg/dL Hemoglobin A1c 8.0 H (4.0-6.0) % Calcium 9.0 (8.4-10.2) mg/dL Calcium panel 09/23/20 Range/Units 12:00 Calcium 9.0 (8.4-10.2) mg/dL Pituitary panel 09/23/20 Range/Units 12:00 Sodium 139 (137-145) mmol/L Potassium 3.8 (3.5-5.1) mmol/L Chloride 103 (98-107) mmol/L Carbon Dioxide 25 (22-30) mmol/L BUN 6 L (7-17) mg/dL Creatinine 0.70 (0.52-1.04) mg/dL Glucose 161 H (74-99) mg/dL Calcium 9.0 (8.4-10.2) mg/dL Adrenal panel 09/23/20 Range/Units 12:00 Sodium 139 (137-145) mmol/L Potassium 3.8 (3.5-5.1) mmol/L Chloride 103 (98-107) mmol/L Carbon Dioxide 25 (22-30) mmol/L BUN 6 L (7-17) mg/dL Creatinine 0.70 (0.52-1.04) mg/dL Glucose 161 H (74-99) mg/dL Calcium 9.0 (8.4-10.2) mg/dL - Imaging CT scan - abdomen: report reviewed, image reviewed Assessment and Plan Plan: The patient has a history of urge incontinence. She understands that this is typically due to overactive bladder. Unfortunately, Myrbetriq failed to help and Ditropan caused incomplete bladder emptying. She has an appointment to follow up with Dr. Kunz next month. I suggested she discuss with him a lower dose of Ditropan, or an alternative antimuscarinic agent. Urinalysis shows no evidence of infection at this time. The bladder appeared full but not distended on CT scan. Bladder scan will be used to assess bladder emptying, and as long as she is not retaining too much urine in her bladder she can be safely observed until she is able to follow-up with Dr. Kunz. Please notify us if we can be of any further assistance. Time with Patient: Greater than 30
[2020-09-23] MEDS: BACLOFEN 10 MG TAB PO SCH (20:32)
[2020-09-23] MEDS: VERAPAMIL SR 120 MG TABLET.ER PO SCH (20:32)
[2020-09-23] MEDS: PANTOPRAZOLE 40 MG TABLET PO SCH (20:32)
[2020-09-24 01:23] VITALS: TEMP 97.9
[2020-09-24] MEDS: DIPHENOX-ATROP 2.5-0.025 MG 1 EACH TAB PO PRN ×2 (01:23→07:59)
[2020-09-24] MEDS: HEPARIN SODIUM,PORCINE 5,000 UNIT/ML 1 ML VIAL SQ SCH ×2 (01:23→07:59)
[2020-09-24 07:38] VITALS: BP 154/83; PULSE 81; RESP 12
[2020-09-24] MEDS: PREGABALIN 50 MG CAP PO SCH (07:59)
[2020-09-24] MEDS: LOSARTAN 50 MG TAB PO SCH (07:59)
[2020-09-24] MEDS: ASPIRIN 81 MG PO SCH (07:59)
[2020-09-24] MEDS: PANTOPRAZOLE 40 MG TABLET PO SCH (08:00)
[2020-09-24] MEDS: HYDROPHILIC CREAM 180 GM TUBE TOPICAL SCH (08:00)
[2020-09-24] MEDS: HYDROcodone/APAP 5-325MG 1 EACH TAB PO PRN (08:55)
--- NOTE | 2020-09-24 11:12 | P.DS ---
Providers Date of admission: 09/23/20 13:30 Expected date of discharge: 09/24/20 Attending physician: Bettie Martin MD Consults: 09/21/20 23:41 Consult Physician Urgent Consulting Provider: Parminder Evans Consult Reason/Comments: UTI w/ chronic urinary retention and incontinence Do you want consulting provider notified?: Yes 09/22/20 15:17 Consult Physician Routine Consulting Provider: Sulaiman Stewart Consult Reason/Comments: abd pain Do you want consulting provider notified?: Yes Primary care physician: Physician Nonstaff Hospital Course: This is a 80-year-old female with past medical history noted below who presented to the emergency room with abdominal pain and chills. Patient was concerned that she may have a UTI as she was recently hospitalized in July secondary to sepsis and UTI. Patient was evaluated in the ER and admitted to the hospital for further management of her medical problems noted below. 1. Abdominal pain, mostly epigastric. Described as burning sensation. Improving with GI cocktail. She was seen and evaluated by GI. Home dose of Prilosec changed to Protonix 40 mg daily. Maalox added as needed. No need for endoscopy at this time per GI recommendations. 2. Diarrhea: C. diff screen is negative. Thought to be attributed to recent antibiotic use. Now improving. May use Lomotil as needed. Computed tomography scan of the abdomen and pelvis showed questionable mild colitis involving the sigmoid colon. We will continue to monitor closely. Appreciate GI recommendations. 3. History of recurrent UTI, urine sample on presentation were grossly contaminated. Repeat UA is negative. Patient was reassured. No need for antibiotic at this time 4. Lactic acidosis, resolved with IV fluid hydration 5. Essential hypertension: Blood pressure within acceptable range Patient will be discharged home in a stable condition. For further details about this hospitalization please refer to the electronic chart. Time spent on discharge > 30 minutes including counseling and coordination of care Physical exam: General: The patient is awake and alert, in no distress Eye: there is normal conjunctiva bilaterally. Neck: The neck is supple, there is no JVD. Cardiovascular: Normal S1-S2, no S3-S4, no murmurs. Respiratory: Lungs clear to auscultation bilaterally Gastrointestinal: Abdomen is soft, nontender Musculoskeletal: There is no pedal edema. Neurological:. Speech is normal. Skin: Skin is warm and dry Patient Condition at Discharge: Fair Plan - Discharge Summary New Discharge Prescriptions: New Diphenox-Atrop 2.5-0.025 mg [Lomotil] 1 each PO Q6HR PRN #10 tab PRN Reason: Diarrhea Mag Hydrox/Al Hydrox/Simeth [Maalox] 30 ml PO Q4HR PRN #300 ml PRN Reason: Gi Upset Pantoprazole Sodium [Protonix] 40 mg PO DAILY #30 tablet.dr Continue Verapamil Sr [Isoptin Sr] 120 mg PO HS Pregabalin [Lyrica] 150 mg PO BID Morphine Sulfate ER [Ms Contin] 15 mg PO Q12HR Losartan [Cozaar] 100 mg PO DAILY HYDROcodone/APAP 5-325MG [[place] 5-325] 1 tab PO Q8H PRN PRN Reason: BREAKTHROUGH PAIN Baclofen [Lioresal] 10 mg PO HS Allopurinol [Zyloprim] 100 mg PO DAILY Ergocalciferol (Vitamin D2) [Vitamin D2 (2000 Iu)] 50 mcg PO DAILY Multivitamins, Thera [Multivitamin (formulary)] 1 tab PO DAILY Melatonin 10 mg PO HS Aspirin EC [Ecotrin Low Dose] 81 mg PO DAILY Discontinued Omeprazole 40 mg PO DAILY Nitrofurantoin Monohyd/M-Cryst [Macrobid] 100 mg PO Q12HR Famotidine [Pepcid] 20 mg PO HS Discharge Medication List Allopurinol [Zyloprim] 100 mg PO DAILY 09/21/20 [History] Aspirin EC [Ecotrin Low Dose] 81 mg PO DAILY 09/21/20 [History] Baclofen [Lioresal] 10 mg PO HS 09/21/20 [History] Ergocalciferol (Vitamin D2) [Vitamin D2 (2000 Iu)] 50 mcg PO DAILY 09/21/20 [History] HYDROcodone/APAP 5-325MG [[place] 5-325] 1 tab PO Q8H PRN 09/21/20 [History] Losartan [Cozaar] 100 mg PO DAILY 09/21/20 [History] Melatonin 10 mg PO HS 09/21/20 [History] Morphine Sulfate ER [Ms Contin] 15 mg PO Q12HR 09/21/20 [History] Multivitamins, Thera [Multivitamin (formulary)] 1 tab PO DAILY 09/21/20 [History] Pregabalin [Lyrica] 150 mg PO BID 09/21/20 [History] Verapamil Sr [Isoptin Sr] 120 mg PO HS 09/21/20 [History] Diphenox-Atrop 2.5-0.025 mg [Lomotil] 1 each PO Q6HR PRN #10 tab 09/24/20 [Rx] Mag Hydrox/Al Hydrox/Simeth [Maalox] 30 ml PO Q4HR PRN #300 ml 09/24/20 [Rx] Pantoprazole Sodium [Protonix] 40 mg PO DAILY #30 tablet. 09/24/20 [Rx] Follow up Appointment(s)/Referral(s): Nonstaff,Physician [Primary Care Provider] - 1-2 days Discharge Disposition: HOME SELF-CARE
--- NOTE | 2020-09-24 12:03 | PN ---
PROGRESS NOTE DATE OF SERVICE: 09/24/2020 The patient is a 80-year-old pleasant white female admitted to the hospital with abdominal pain, nausea, vomiting, and diarrhea for the last 3 or 4 days duration. She is doing much better today. She remains on IV Protonix as well as Zofran. Her diet has been advanced as tolerated. Abdominal pain has improved. She has some epigastric burning pain, but overall feeling much better. PHYSICAL EXAMINATION: Appears comfortable. VITAL SIGNS: Stable. Blood pressure 154/83, pulse 81 temperature 97.7. HEENT examination unremarkable. Conjunctivae pink. Sclerae anicteric. Oral cavity no lesions. NECK: No JVD or lymph node enlargement. CHEST was clear to auscultation. HEART: Regular rate and rhythm. ABDOMEN: Soft. There was minimal tenderness in the epigastric area. EXTREMITIES: No pedal edema. NEUROLOGIC: Alert and oriented x3. No focal deficits. LABS: No labs available from today. IMPRESSION: 1. Abdominal pain associated with nausea, vomiting, diarrhea, probably related to medications/antibiotic use for recurrent urinary tract infection. Clinically she is doing better. Remains on Protonix 40 mg twice daily and antacids as needed. 2. Diarrhea, resolved. C difficile toxin is negative. 3. Recurrent urinary tract infection, presently on IV Levaquin. RECOMMENDATIONS: 1. Continue with Protonix 40 mg twice daily. 2. Antacids as needed. 3. Advance diet as tolerated. 4. She can be discharged home from GI standpoint. Thank you for this consultation. MMSUNILL / JAELN: [id number] /
== END 2020-09-24 14:12 | disposition home or self-care (01) ==
LOC: EC 15:48 → 6NMEDSUR 19:20 → OBSVTOIN 09-23 13:30 → INTOOBSV 09-23 13:30 → UNDODISIN 09-24 14:12
PROVIDERS: ADMIT Internal Medicine; ATTEND Internal Medicine
DX: R10.13 Epigastric pain (principal); E87.2 Acidosis; L98.421 Non-pressure chronic ulcer of back limited to breakdown of skin; I10 Essential (primary) hypertension; R35.0 Frequency of micturition; N39.41 Urge incontinence; R19.7 Diarrhea, unspecified; R73.9 Hyperglycemia, unspecified; R11.2 Nausea with vomiting, unspecified; E78.5 Hyperlipidemia, unspecified; K21.9 Gastro-esophageal reflux disease without esophagitis; M10.9 Gout, unspecified; M79.7 Fibromyalgia; Z20.822 Contact with and (suspected) exposure to COVID-19; N32.81 Overactive bladder; M54.9 Dorsalgia, unspecified; Z79.82 Long term (current) use of aspirin; Z79.891 Long term (current) use of opiate analgesic; Z79.899 Other long term (current) drug therapy; Z88.1 Allergy status to other antibiotic agents; Z88.8 Allergy status to other drugs, medicaments and biological substances; Z87.440 Personal history of urinary (tract) infections; Z87.09 Personal history of other diseases of the respiratory system; Z86.19 Personal history of other infectious and parasitic diseases; Z87.11 Personal history of peptic ulcer disease
CPT/HCPCS: 96376; 96361 ×2; 96372 ×3; 96375; 96374; 99284; 36415; 93005; 80053; 80048; 83605 ×2; 83690; 83735; 85025; 81003; 81001; 87040; 87324; 83036; 87635; 74022; 74177; G0378 ×4; J1644 ×3; J2405; C9113 ×2; Q9967

== ENCOUNTER 2022-06-08 13:38 | Emergency (ER) | payer MEDICARE, OTHER ==
[2022-06-08 13:54] VITALS: BP 169/91; PULSE 91; RESP 20; TEMP 97.9
--- NOTE | 2022-06-08 14:18 | ED ---
General Adult HPI - General Source: patient Mode of arrival: ambulatory Limitations: no limitations <Brady Lyon - Last Filed: 06/08/22 15:05> <Gordon Paiz - Last Filed: 06/08/22 15:39> - General Chief complaint: Urogenital Stated complaint: urogenital Time Seen by Provider: 06/08/22 14:09 - History of Present Illness Initial comments: Dictation was produced using [employer] dictation software. please excuse any grammatical, word or spelling errors. Chief Complaint: 81-year-old female presents with 1-2 days of dysuria and urinary urgency and frequency History of Present Illness: 81-year-old female she has extensive history of urinary tract infections. She states the last time she was admitted to the hospital for pseudomonal UTI. Patient states that she is having recurrent s ymptoms of UTI. She has seen specialists before. She also reports she's been admitted before. Patient currently resides out of town. She is here in town visiting family members. Patient has any fever or chills. Denies any flank pain. Patient does report some suprapubic pressure. Her symptoms she reports her classic for UTI. The ROS documented in this emergency department record has been reviewed and confirmed by me. Those systems with pertinent positive or negative responses have been documented in the HPI. All other systems are other negative and/or noncontributory. PHYSICAL EXAM: General Impression: Alert and oriented x3, not in acute distress HEENT: Normocephalic atraumatic, extra-ocular movements intact, pupils equal and reactive to light bilaterally, mucous membranes moist. Cardiovascular: Heart regular rate and rhythm Chest: Able to complete full sentences, no retractions, no tachypnea Abdomen: abdomen soft, non-tender, non-distended, no organomegaly Musculoskeletal: Pulses present and equal in all extremities, no peripheral edema Motor: no focal deficits noted Neurological: CN II-XII grossly intact, no focal motor or sensory deficits noted Skin: Intact with no visualized rashes Psych: Normal affect and mood ED course: 81-year-old female with extensive history of UTIs requiring IV antibiotic treatment presents to the ER for urinary symptoms. Vital signs upon arrival are within acceptable limits. Suspect that patient has history of drug- resistant UTIs. Care signed out to Dr. Paiz (Brady Lyon) - Related Data Home Medications Medication Instructions Recorded Confirmed Aspirin EC [Ecotrin Low Dose] 81 mg PO DAILY 09/21/20 09/21/20 Baclofen [Lioresal] 10 mg PO HS 09/21/20 09/21/20 Ergocalciferol (Vitamin D2) 50 mcg PO DAILY 09/21/20 09/21/20 [Vitamin D2 (2000 Iu)] HYDROcodone/APAP 5-325MG [Kelly 1 tab PO Q8H PRN 09/21/20 09/21/20 5-325] Losartan [Cozaar] 100 mg PO DAILY 09/21/20 09/21/20 Melatonin [Melatonin ER] 10 mg PO HS 09/21/20 09/21/20 Morphine Sulfate ER [Ms Contin] 15 mg PO Q12HR 09/21/20 09/21/20 Multivitamins, Thera [Multivitamin 1 tab PO DAILY 09/21/20 09/21/20 (formulary)] Pregabalin [Lyrica] 150 mg PO BID 09/21/20 09/21/20 Verapamil Sr [Isoptin Sr] 120 mg PO HS 09/21/20 09/21/20 allopurinoL [Zyloprim] 100 mg PO DAILY 09/21/20 09/21/20 Previous Rx's Medication Instructions Recorded Diphenox-Atrop 2.5-0.025 mg 1 each PO Q6HR PRN #10 tab 09/24/20 [Lomotil] Mag Hydrox/Al Hydrox/Simeth 30 ml PO Q4HR PRN #300 ml 09/24/20 [Maalox] Pantoprazole Sodium [Protonix] 40 mg PO DAILY #30 tablet. 09/24/20 Allergies Allergy/AdvReac Type Severity Reaction Status Date / Time cephalexin [From Keflex] AdvReac Rash/Hives Verified 06/08/22 13:54 clindamycin AdvReac Rash/Hives Verified 06/08/22 13:54 oxybutynin [From Ditropan] AdvReac Hallucinati Verified 06/08/22 13:54 ons Review of Systems ROS Other: All systems not noted in ROS Statement are negative. <Brady Lyon - Last Filed: 06/08/22 15:05> ROS Other: All systems not noted in ROS Statement are negative. <Gordon Paiz - Last Filed: 06/08/22 15:39> ROS Statement: Those systems with pertinent positive or pertinent negative responses have been documented in the HPI. Past Medical History Past Medical History: Hypertension Additional Past Medical History / Comment(s): UTI, fibromylagia, respiroaty failure History of Any Multi-Drug Resistant Organisms: None Reported Past Surgical History: Back Surgery Additional Past Surgical History / Comment(s): 5 back surgery since 2014. Past Anesthesia/Blood Transfusion Reactions: No Reported Reaction Past Psychological History: No Psychological Hx Reported Smoking Status: Never smoker Past Alcohol Use History: None Reported Past Drug Use History: None Reported <Brady Lyon - Last Filed: 06/08/22 15:05> General Exam Limitations: no limitations <Brady Lyon - Last Filed: 06/08/22 15:05> Course Vital Signs 06/08/22 13:52 Temperature 97.9 F Pulse Rate 91 Respiratory 20 Rate Blood Pressure 169/91 O2 Sat by Pulse 96 Oximetry Medical Decision Making - Lab Data Result diagrams: 06/08/22 14:16 06/08/22 14:16 <Gordon Paiz - Last Filed: 06/08/22 15:39> - Medical Decision Making 81-year-old female presented with urinary frequency and urgency. Patient well- appearing, stable vitals. Reevaluate no signs of distress. Workup in the emergency Department is unremarkable including a completely normal urinalysis. Patient does have significant history regarding your urinary tract infections. She requests a urology follow-up. Provided on the emergency department and she has an appointment with primary care out of town. (Gordon Paiz) - Lab Data Lab Results 06/08/22 06/08/22 06/08/22 Range/Units 14:09 14:16 14:16 WBC 5.7 (3.8-10.6) k/uL RBC 4.54 (3.80-5.40) m/uL Hgb 14.2 (11.4-16.0) gm/dL Hct 42.6 (34.0-46.0) % MCV 93.8 (80.0-100.0) fL MCH 31.2 (25.0-35.0) pg MCHC 33.3 (31.0-37.0) g/dL RDW 13.4 (11.5-15.5) % Plt Count 189 (150-450) k/uL MPV 8.6 Neutrophils % 73 % Lymphocytes % 12 % Monocytes % 9 % Eosinophils % 2 % Basophils % 1 % Neutrophils # 4.1 (1.3-7.7) k/uL Lymphocytes # 0.7 L (1.0-4.8) k/uL Monocytes # 0.5 (0-1.0) k/uL Eosinophils # 0.1 (0-0.7) k/uL Basophils # 0.0 (0-0.2) k/uL Sodium 136 L (137-145) mmol/L Potassium 4.5 (3.5-5.1) mmol/L Chloride 101 (98-107) mmol/L Carbon Dioxide 25 (22-30) mmol/L Anion Gap 10 mmol/L BUN 17 (7-17) mg/dL Creatinine 0.70 (0.52-1.04) mg/dL Est GFR (CKD-EPI)AfAm >90 (>60 ml/min/1.73 sqM) Est GFR (CKD-EPI)NonAf 83 (>60 ml/min/1.73 sqM) Glucose 127 H (74-99) mg/dL Plasma Lactic Acid [place] (0.7-2.0) mmol/L Calcium 8.8 (8.4-10.2) mg/dL Urine Color Yellow Urine Appearance Clear (Clear) Urine pH 7.0 (5.0-8.0) Ur Specific Slemp 1.006 (1.001-1.035) Urine Protein Negative (Negative) Urine Glucose (UA) Negative (Negative) Urine Ketones Negative (Negative) Urine Blood Negative (Negative) Urine Nitrite Negative (Negative) Urine Bilirubin Negative (Negative) Urine Urobilinogen <2.0 (<2.0) mg/dL Ur Leukocyte Esterase Negative (Negative) 06/08/22 Range/Units 15:05 WBC (3.8-10.6) k/uL RBC (3.80-5.40) m/uL Hgb (11.4-16.0) gm/dL Hct (34.0-46.0) % MCV (80.0-100.0) fL MCH (25.0-35.0) pg MCHC (31.0-37.0) g/dL RDW (11.5-15.5) % Plt Count (150-450) k/uL MPV Neutrophils % % Lymphocytes % % Monocytes % % Eosinophils % % Basophils % % Neutrophils # (1.3-7.7) k/uL Lymphocytes # (1.0-4.8) k/uL Monocytes # (0-1.0) k/uL Eosinophils # (0-0.7) k/uL Basophils # (0-0.2) k/uL Sodium (137-145) mmol/L Potassium (3.5-5.1) mmol/L Chloride (98-107) mmol/L Carbon Dioxide (22-30) mmol/L Anion Gap mmol/L BUN (7-17) mg/dL Creatinine (0.52-1.04) mg/dL Est GFR (CKD-EPI)AfAm (>60 ml/min/1.73 sqM) Est GFR (CKD-EPI)NonAf (>60 ml/min/1.73 sqM) Glucose (74-99) mg/dL Plasma Lactic Acid [place] 1.8 (0.7-2.0) mmol/L Calcium (8.4-10.2) mg/dL Urine Color Urine Appearance (Clear) Urine pH (5.0-8.0) Ur Specific Slemp (1.001-1.035) Urine Protein (Negative) Urine Glucose (UA) (Negative) Urine Ketones (Negative) Urine Blood (Negative) Urine Nitrite (Negative) Urine Bilirubin (Negative) Urine Urobilinogen (<2.0) mg/dL Ur Leukocyte Esterase (Negative) Disposition <Brady Lyon - Last Filed: 06/08/22 15:05> Is patient prescribed a controlled substance at d/c from ED?: No Time of Disposition: 15:39 <Gordon Paiz - Last Filed: 06/08/22 15:39> Clinical Impression: Increased urinary frequency Disposition: HOME SELF-CARE Condition: Good Instructions (If sedation given, give patient instructions): Urinary Urgency and Frequency (DC) Referrals: Nonstaff,Physician [REFERRING] - 1-2 days Parminder Evans MD [STAFF PHYSICIAN] - 1-2 days
[2022-06-08 15:06] LABS: Basophils % (A) 1 %; Eosinophils # (A) 0.1 k/uL (0-0.7); Eosinophils % (A) 2 %; HCT 42.6 % (34.0-46.0); HGB 14.2 gm/dL (11.4-16.0); Lymphocytes # (A) 0.7 k/uL (1.0-4.8); Lymphocytes % (A) 12 %; MCH 31.2 pg (25.0-35.0); MCHC 33.3 g/dL (31.0-37.0); MCV 93.8 fL (80.0-100.0); Mean Platelet Volume 8.6; Monocytes # (A) 0.5 k/uL (0-1.0); Monocytes % (A) 9 %; Neutrophils # (A) 4.1 k/uL (1.3-7.7); Neutrophils % (A) 73 %; Platelet Count 189 k/uL (150-450); RBC 4.54 m/uL (3.80-5.40); RDW 13.4 % (11.5-15.5); WBC 5.7 k/uL (3.8-10.6)
[2022-06-08 15:21] LABS: African American GFR (CKD) >90 (>60 ml/min/1.73 sqM); Anion Gap 10 mmol/L; Blood Urea Nitrogen 17 mg/dL (7-17); Calcium 8.8 mg/dL (8.4-10.2); Carbon Dioxide 25 mmol/L (22-30); Chloride 101 mmol/L (98-107); Glucose 127 mg/dL (74-99); Non-African American GFR(CKD) 83 (>60 ml/min/1.73 sqM); Sodium 136 mmol/L (137-145)
[2022-06-08 15:22] LABS: Potassium 4.5 mmol/L (3.5-5.1)
[2022-06-08 15:22] LABS: Appearance,Urine Clear (Clear); Bilirubin,Urine Negative (Negative); Blood,Urine Negative (Negative); Color,Urine Yellow; Glucose,Urine (UA) Negative (Negative); Ketones,Urine Negative (Negative); Leukocyte Esterase,Urine Negative (Negative); Nitrite,Urine Negative (Negative); Protein,Urine Negative (Negative); Specific Gravity,Urine 1.006 (1.001-1.035); Urobilinogen,Urine <2.0 mg/dL (<2.0)
== END 2022-06-08 16:22 | disposition home or self-care (01) ==
LOC: EC 13:38
DX: R35.0 Frequency of micturition (principal); I10 Essential (primary) hypertension; Z79.82 Long term (current) use of aspirin; Z79.899 Other long term (current) drug therapy; Z88.1 Allergy status to other antibiotic agents; Z88.3 Allergy status to other anti-infective agents
CPT/HCPCS: 36415; 80048; 81003; 83605; 85025; 99283

== ENCOUNTER → 2022-07-18 | Outpatient (CLI) | payer MEDICARE, OTHER ==
--- NOTE | 2022-07-18 15:33 | P.SLEEP ---
History of Present Illness DATE: 07/18/2022 CONSULTATION/NEW PATIENT EVALUATION HISTORY OF PRESENT ILLNESS/SLEEP-WAKE EVALUATION: 82-year-old lady had been ev aluated in the sleep center for obstructive sleep apnea hypopnea syndrome. 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 For last 5 months patient was not able to use use CPAP equipment, does not feel comfortable with her mask. She moved to different location and did not get her CPAP supplies for a while. SLEEP SCHEDULE: Usually sleep schedule from 2 AM until 10 AM. FALLING ASLEEP: No significant problems with falling asleep, no TV in bedroom. DURING SLEEP: Patient snores ,usually sleeps on the back position, wakes up from sleep 2 times with the nocturia and dry mouth. No history of hypnogogical hallucinations, sleep paralysis, or cataplexy. DURING THE DAY/WAKE STATE: During the day patient feels sleepiness. [place] sleepiness scale is 13, which indicates sleepiness. Patient may take 2 naps during the day. PAST MEDICAL HISTORY: Hypertension, diabetes mellitus, acid reflux, hyperlipidemia, fibromyalgia, gout. PAST SURGICAL HISTORY: Lumbar fusion. MEDICATIONS: Allopurinol 100 mg once a day, Cymbalta 60 mg once a day, hydrochlorothiazide 12.5 mg once a day, losartan 100 mg once a day, metformin 1000 mg once a day, omeprazole 40 mg once a day, pravastatin 40 mg once a day, Lyrica 150 mg once a day. SOCIAL HISTORY: Negative for smoking, alcohol consumption occasional. FAMILY HISTORY: Stroke, diabetes, sleep apnea. REVIEW OF SYSTEMS: Snoring, awakenings from sleep, sleepiness during the day. No fevers. No double vision. No recent chest pain. No shortness of breath. No abdominal pain. No bleeding episodes. No blood in urine. No seizure episodes. PHYSICAL EXAMINATION: GENERAL: A pleasant patient without any distress. VITAL SIGNS: BP 135/79, HR 84, RR 16, weight 202.2 pounds, height 4 foot 11 inches, body mass index 40.7. HEENT: PERRLA, EOMI. Evaluation of oropharynx showed tongue protrudes midline, low position of soft palate Mallampati 4. NECK: Supple. No JVD. Thyroid is not palpable. 16 inches in circumference. LUNGS: Clear to percussion and to auscultation. Good air exchange. No wheezing or rhonchi. HEART: S1, S2 regular. No murmurs, gallops or rubs. ABDOMEN: Soft and nontender. Bowel sounds are present. No organomegaly appreciated. EXTREMITIES: No clubbing or cyanosis. CLINICAL RESEARCH ASSOCIATE: Awake, alert, and oriented x3. Cranial nerves 2 to 7 intact. There is no fasciculation or atrophy noted. No focal deficits observed. ASSESSMENT: 1. Snoring, multiple awakenings from sleep, extremely low position of soft palate Mallampati 4, wide neck 16 inches in circumference, sleepiness [place] Sleepiness Scale 13, history of obstructive sleep apnea hypopnea syndrome. Obstructive sleep apnea hypopnea syndrome. 2. Obesity body mass index 40.7. 3. Hypertension . 4. Diabetes mellitus. 5 acid reflux. 6 . Hyperlipidemia. 7. Fibromyalgia. 8. Gout. 9 . Status post lumbar fusion. PLAN: 1. Prescription for all necessary CPAP supplies. 2. CPAP/BiPAP titration for correction of respiratory abnormalities during sleep and to find comfortable mask for the patient. 3. Preferable position during sleep on the side. 4. No driving if patient feels any sleepiness. Patient is aware of civil and criminal liability for unsafe driving. 5. Sleep hygiene with regular sleep time for at least 7.5-8 hours. 6. Watching weight. 7. We'll get results of previous sleep studies which was done in another institution. Thank you very much for referring this patient for consultation. Sincerely, Hamzah Sen MD, PhD, FAASM. Diplomat of [place] [employer], Sleep Medicine Board by [place] [employer] [place] [employer] [facility] [place] Past Medical History Past Medical History: Hypertension Additional Past Medical History / Comment(s): UTI, fibromylagia, respiroaty failure History of Any Multi-Drug Resistant Organisms: None Reported Past Surgical History: Back Surgery Additional Past Surgical History / Comment(s): 5 back surgery since 2014. Past Anesthesia/Blood Transfusion Reactions: No Reported Reaction Past Psychological History: No Psychological Hx Reported Smoking Status: Never smoker Past Alcohol Use History: None Reported Past Drug Use History: None Reported Medications and Allergies Home Medications Medication Instructions Recorded Confirmed Type Aspirin EC [Ecotrin Low Dose] 81 mg PO DAILY 09/21/20 09/21/20 History Baclofen [Lioresal] 10 mg PO HS 09/21/20 09/21/20 History Ergocalciferol (Vitamin D2) 50 mcg PO DAILY 09/21/20 09/21/20 History [Vitamin D2 (2000 Iu)] HYDROcodone/APAP 5-325MG [Dudley 1 tab PO Q8H PRN 09/21/20 09/21/20 History 5-325] Losartan [Cozaar] 100 mg PO DAILY 09/21/20 09/21/20 History Melatonin [Melatonin ER] 10 mg PO HS 09/21/20 09/21/20 History Morphine Sulfate ER [Ms Contin] 15 mg PO Q12HR 09/21/20 09/21/20 History Multivitamins, Thera [Multivitamin 1 tab PO DAILY 09/21/20 09/21/20 History (formulary)] Pregabalin [Lyrica] 150 mg PO BID 09/21/20 09/21/20 History Verapamil Sr [Isoptin Sr] 120 mg PO HS 09/21/20 09/21/20 History allopurinoL [Zyloprim] 100 mg PO DAILY 09/21/20 09/21/20 History Diphenox-Atrop 2.5-0.025 mg 1 each PO Q6HR PRN #10 tab 09/24/20 Rx [Lomotil] Mag Hydrox/Al Hydrox/Simeth 30 ml PO Q4HR PRN #300 ml 09/24/20 Rx [Maalox] Pantoprazole Sodium [Protonix] 40 mg PO DAILY #30 tablet. 09/24/20 Rx Allergies Allergy/AdvReac Type Severity Reaction Status Date / Time cephalexin [From Keflex] AdvReac Rash/Hives Verified 06/08/22 13:54 clindamycin AdvReac Rash/Hives Verified 06/08/22 13:54 oxybutynin [From Ditropan] AdvReac Hallucinati Verified 06/08/22 13:54 ons Sleep Note - Sleep Note Sleep Note: Temperature: Pulse Rate: Respiratory Rate: Blood Pressure: SpO2: Height: Weight: BMI: Neck Circumference:
== END ==
LOC: SLEEP 13:13
PROVIDERS: ATTEND Internal Medicine
DX: G47.33 Obstructive sleep apnea (adult) (pediatric) (principal); E66.9 Obesity, unspecified; Z68.41 Body mass index [BMI] 40.0-44.9, adult; I10 Essential (primary) hypertension; E11.9 Type 2 diabetes mellitus without complications; E78.5 Hyperlipidemia, unspecified; K21.9 Gastro-esophageal reflux disease without esophagitis; M79.7 Fibromyalgia; M10.9 Gout, unspecified; Z98.1 Arthrodesis status; Z88.1 Allergy status to other antibiotic agents; Z88.8 Allergy status to other drugs, medicaments and biological substances; Z99.89 Dependence on other enabling machines and devices
CPT/HCPCS: 99211

== ENCOUNTER 2022-11-04 10:25 | Inpatient (IN) | payer MEDICARE, OTHER ==
--- NOTE | 2022-11-04 11:22 | ED ---
Altered Mental Status HPI - General Chief Complaint: Altered Mental Status Stated Complaint: AMS Time Seen by Provider: 11/04/22 10:30 Source: EMS Mode of arrival: EMS Limitations: altered mental status - History of Present Illness Initial Comments: 82 year old presents from [facility] for confusion. Awoke and went to eat breakfast. Staff at the facility thought she was confused as called EMS. Granddaughter at bedside states that her grandma is usually able to care for herself. Patient admits she gets confused with urinary tract infections. denies any symptoms. no fevers. no history of strokes. - Related Data Home Medications Medication Instructions Recorded Confirmed Aspirin EC [Ecotrin Low Dose] 81 mg PO DAILY 09/21/20 11/04/22 Baclofen [Lioresal] 10 mg PO TID PRN 09/21/20 11/04/22 Multivitamins, Thera [Multivitamin 1 tab PO DAILY 09/21/20 11/04/22 (formulary)] Pregabalin [Lyrica] 150 mg PO BID 09/21/20 11/04/22 allopurinoL [Zyloprim] 100 mg PO DAILY 09/21/20 11/04/22 Acetaminophen Tab [Tylenol Tab] 1,000 mg PO QID PRN 11/04/22 11/04/22 Cholecalciferol [Vitamin D3 (25 25 mcg PO DAILY 11/04/22 11/04/22 Mcg = 1000 Iu)] Diclofenac Sodium Gel [Voltaren 1 applic TOPICAL QID PRN 11/04/22 11/04/22 Gel] Famotidine 20 - 40 mg PO DAILY 11/04/22 11/04/22 HYDROcodone/APAP 10-325MG [[place] 1 tab PO QID PRN 11/04/22 11/04/22 10-325] L.acidoph,Paracasei, B.lactis 1 cap PO DAILY 11/04/22 11/04/22 [Probiotic] Losartan Potassium [Cozaar] 100 mg PO DAILY 11/04/22 11/04/22 Omeprazole [PriLOSEC] 20 mg PO DAILY 11/04/22 11/04/22 Pravastatin Sodium [Pravachol] 20 mg PO DAILY 11/04/22 11/04/22 Ubidecarenone [Coenzyme Q10] 200 mg PO DAILY 11/04/22 11/04/22 Verapamil HCl [Verapamil ER] 120 mg PO DAILY 11/04/22 11/04/22 Vitamin B Complex 1 cap PO DAILY 11/04/22 11/04/22 hydroCHLOROthiazide 12.5 mg PO DAILY 11/04/22 11/04/22 metFORMIN HCL ER [Glucophage XR] 1,000 mg PO DAILY 11/04/22 11/04/22 Allergies Allergy/AdvReac Type Severity Reaction Status Date / Time cephalexin [From Keflex] AdvReac Rash/Hives Verified 11/04/22 10:30 clindamycin AdvReac Rash/Hives Verified 11/04/22 10:30 oxybutynin [From Ditropan] AdvReac Hallucinati Verified 11/04/22 10:30 ons Review of Systems ROS Statement: Those systems with pertinent positive or pertinent negative responses have been documented in the HPI. ROS Other: All systems not noted in ROS Statement are negative. Past Medical History Past Medical History: Hypertension Additional Past Medical History / Comment(s): UTI, fibromylagia, respiroaty failure History of Any Multi-Drug Resistant Organisms: None Reported Past Surgical History: Back Surgery Additional Past Surgical History / Comment(s): 5 back surgery since 2014. Past Anesthesia/Blood Transfusion Reactions: No Reported Reaction Past Psychological History: No Psychological Hx Reported Smoking Status: Never smoker Past Alcohol Use History: None Reported Past Drug Use History: None Reported General Exam Limitations: altered mental status General appearance: alert, in no apparent distress Head exam: Present: atraumatic, normocephalic, normal inspection Eye exam: Present: normal appearance, PERRL, EOMI. Absent: scleral icterus, co njunctival injection, periorbital swelling ENT exam: Present: normal exam, mucous membranes moist Neck exam: Present: normal inspection. Absent: tenderness, meningismus, lymphadenopathy Respiratory exam: Present: normal lung sounds bilaterally. Absent: respiratory distress, wheezes, rales, rhonchi, stridor Cardiovascular Exam: Present: regular rate, normal rhythm, normal heart sounds. Absent: systolic murmur, diastolic murmur, rubs, gallop, clicks GI/Abdominal exam: Present: soft, normal bowel sounds. Absent: distended, tenderness, guarding, rebound, rigid Extremities exam: Present: normal inspection, full ROM, normal capillary refill. Absent: tenderness, pedal edema, joint swelling, calf tenderness Back exam: Present: normal inspection Neurological exam: Present: alert, oriented X3, CN II-XII intact Psychiatric exam: Present: normal affect, normal mood Skin exam: Present: warm, dry, intact, normal color. Absent: rash Course Vital Signs 11/04/22 11/04/22 11/04/22 10:26 14:17 16:05 Temperature 98.8 F Pulse Rate 94 78 87 Respiratory 19 19 20 Rate Blood Pressure 184/100 150/98 152/88 O2 Sat by Pulse 96 95 95 Oximetry 11/04/22 11/04/22 11/04/22 18:37 19:00 20:00 Temperature Pulse Rate 96 84 87 Respiratory 19 16 16 Rate Blood Pressure 107/44 104/75 155/85 O2 Sat by Pulse 95 98 94 L Oximetry 11/04/22 21:00 Temperature Pulse Rate 84 Respiratory 16 Rate Blood Pressure 126/83 O2 Sat by Pulse 94 L Oximetry Medical Decision Making - Medical Decision Making Was pt. sent in by a medical professional or institution (, [place], [facility], urgent care, hospital, or long term...) When possible be specific @ -living facility Did you speak to anyone other than the patient for history (EMS, parent, family, police, friend...)? What history was obtained from this source @ -EMS, granddaughter Did you review nursing and triage notes (agree or disagree)? Why? @ -I reviewed and agree with nursing and triage notes Were old charts reviewed (outside hosp., previous admission, EMS record, old EKG, old radiological studies, urgent care reports/EKG's, long term records)? Report findings @ -old charts were reviewed Differential Diagnosis (chest pain, altered mental status, abdominal pain women, abdominal pain men, vaginal bleeding, weakness, fever, dyspnea, syncope, headache, dizziness, GI bleed, back pain, seizure, CVA, palpatations, mental health, musculoskeletal)? @ -URI, UTI, covid, pneumonia, CVA, SDH EKG interpreted by me (3pts min.). @ -yes X-rays interpreted by me (1pt min.). @ -yes CT interpreted by me (1pt min.). @ -yes U/S interpreted by me (1pt. min.). @ -None done What testing was considered but not performed or refused? (CT, X-rays, U/S, labs)? Why? @ -Still awaiting urine sample What meds were considered but not given or refused? Why? @ -None Did you discuss the management of the patient with other professionals (professionals i.e. , PA, [facility], lab, RT, psych nurse, social work instructor, hack driver, te acher, senior commercial loan officer, caser)? Give summary @ -Dr. Austin Was smoking cessation discussed for >3mins.? @ -No Was critical care preformed (if so, how long)? @ -No Were there social determinants of health that impacted care today? How? (Homelessness, low income, unemployed, alcoholism, drug addiction, transportation, low edu. Level, literacy, decrease access to med. care, half-way, r ehab)? @ -No Was there de-escalation of care discussed even if they declined (Discuss DNR or withdrawal of care, Hospice)? DNR status @ -No What co-morbidities impacted this encounter? (DM, HTN, Smoking, COPD, CAD, Cancer, CVA, ARF, Chemo, Hep., AIDS, mental health diagnosis, sleep apnea, morbid obesity)? @ -reccurent uti, arthritis Was patient admitted / discharged? Hospital course, mention meds given and route, prescriptions, significant lab abnormalities, going to OR and other p ertinent info. @ -Admitted Undiagnosed new problem with uncertain prognosis? @ -yes Drug Therapy requiring intensive monitoring for toxicity (Heparin, Nitro, Insulin, Cardizem)? @ -No Were any procedures done? @ -No Diagnosis/symptom? @ -acute encephalopathy, suspected uti Acute, or Chronic, or Acute on Chronic? @ -acute Uncomplicated (without systemic symptoms) or Complicated (systemic symptoms)? @ -complicated Side effects of treatment? @ -No Exacerbation, Progression, or Severe Exacerbation? @ -No Poses a threat to life or bodily function? How? (Chest pain, [place], [place], pneumonia, PE, COPD, DKA, ARF, appy, cholecystitis, CVA, Diverticulitis, Homicidal, Suicidal, threat to staff... and all critical care pts) @ -No - Lab Data Result diagrams: 11/07/22 07:30 11/07/22 07:30 Lab Results 11/04/22 11/04/22 11/04/22 Range/Units 05:45 11:46 11:46 WBC 8.1 (3.8-10.6) k/uL RBC 5.04 (3.80-5.40) m/uL Hgb 15.0 (11.4-16.0) gm/dL Hct 45.1 (34.0-46.0) % MCV 89.4 (80.0-100.0) fL MCH 29.7 (25.0-35.0) pg MCHC 33.2 (31.0-37.0) g/dL RDW 14.8 (11.5-15.5) % Plt Count 221 (150-450) k/uL MPV 8.0 Neutrophils % 84 % Lymphocytes % 9 % Monocytes % 6 % Eosinophils % 1 % Basophils % 0 % Neutrophils # 6.8 (1.3-7.7) k/uL Lymphocytes # 0.7 L (1.0-4.8) k/uL Monocytes # 0.5 (0-1.0) k/uL Eosinophils # 0.0 (0-0.7) k/uL Basophils # 0.0 (0-0.2) k/uL PT 11.2 (9.0-12.0) sec INR 1.1 (<1.2) APTT 21.9 L (22.0-30.0) sec Sodium (137-145) mmol/L Potassium (3.5-5.1) mmol/L Chloride (98-107) mmol/L Carbon Dioxide (22-30) mmol/L Anion Gap mmol/L BUN (7-17) mg/dL Creatinine (0.52-1.04) mg/dL Est GFR (CKD-EPI)AfAm (>60 ml/min/1.73 sqM) Est GFR (CKD-EPI)NonAf (>60 ml/min/1.73 sqM) Glucose (74-99) mg/dL Calcium (8.4-10.2) mg/dL Total Bilirubin (0.2-1.3) mg/dL AST (14-36) U/L ALT (4-34) U/L Alkaline Phosphatase (38-126) U/L Troponin I (0.000-0.034) ng/mL Total Protein (6.3-8.2) g/dL Albumin (3.5-5.0) g/dL Urine Color Yellow Urine Appearance Cloudy H (Clear) Urine pH 6.0 (5.0-8.0) Ur Specific [place] 1.013 (1.001-1.035) Urine Protein Trace H (Negative) Urine Glucose (UA) Negative (Negative) Urine Ketones 1+ H (Negative) Urine Blood Small H (Negative) Urine Nitrite Positive H (Negative) Urine Bilirubin Negative (Negative) Urine Urobilinogen <2.0 (<2.0) mg/dL Ur Leukocyte Esterase Large H (Negative) Urine RBC 3 (0-5) /hpf Urine WBC 22 H (0-5) /hpf Ur Squamous Epith Cells 2 (0-4) /hpf Urine Bacteria Many H (None) /hpf Urine Mucus Rare H (None) /hpf 11/04/22 11/04/22 Range/Units 11:46 11:46 WBC (3.8-10.6) k/uL RBC (3.80-5.40) m/uL Hgb (11.4-16.0) gm/dL Hct (34.0-46.0) % MCV (80.0-100.0) fL MCH (25.0-35.0) pg MCHC (31.0-37.0) g/dL RDW (11.5-15.5) % Plt Count (150-450) k/uL MPV Neutrophils % % Lymphocytes % % Monocytes % % Eosinophils % % Basophils % % Neutrophils # (1.3-7.7) k/uL Lymphocytes # (1.0-4.8) k/uL Monocytes # (0-1.0) k/uL Eosinophils # (0-0.7) k/uL Basophils # (0-0.2) k/uL PT (9.0-12.0) sec INR (<1.2) APTT (22.0-30.0) sec Sodium 142 (137-145) mmol/L Potassium 4.2 (3.5-5.1) mmol/L Chloride 107 (98-107) mmol/L Carbon Dioxide 18 L (22-30) mmol/L Anion Gap 17 mmol/L BUN 17 (7-17) mg/dL Creatinine 0.68 (0.52-1.04) mg/dL Est GFR (CKD-EPI)AfAm >90 (>60 ml/min/1.73 sqM) Est GFR (CKD-EPI)NonAf 83 (>60 ml/min/1.73 sqM) Glucose 128 H (74-99) mg/dL Calcium 9.7 (8.4-10.2) mg/dL Total Bilirubin 0.8 (0.2-1.3) mg/dL AST 32 (14-36) U/L ALT 21 (4-34) U/L Alkaline Phosphatase 54 (38-126) U/L Troponin I <0.012 (0.000-0.034) ng/mL Total Protein 7.5 (6.3-8.2) g/dL Albumin 4.5 (3.5-5.0) g/dL Urine Color Urine Appearance (Clear) Urine pH (5.0-8.0) Ur Specific [place] (1.001-1.035) Urine Protein (Negative) Urine Glucose (UA) (Negative) Urine Ketones (Negative) Urine Blood (Negative) Urine Nitrite (Negative) Urine Bilirubin (Negative) Urine Urobilinogen (<2.0) mg/dL Ur Leukocyte Esterase (Negative) Urine RBC (0-5) /hpf Urine WBC (0-5) /hpf Ur Squamous Epith Cells (0-4) /hpf Urine Bacteria (None) /hpf Urine Mucus (None) /hpf - EKG Data EKG Comments: EKG demonstrates sinus rhythm with a rate of 101. [place] interval 347. QRS 94. QTC of 397. No acute ST segment elevations or depressions. T-wave in lead 3 Disposition Clinical Impression: Acute encephalopathy Disposition: ADMITTED IP TO THIS [facility] Condition: Stable Is patient prescribed a controlled substance at d/c from ED?: No Time of Disposition: 15:28 Decision to Admit Reason: Admit from EC Decision Date: 11/04/22 Decision Time: 15:28
--- NOTE | 2022-11-04 11:45 | XR ---
EXAMINATION TYPE: XR chest 2V DATE OF EXAM: 11/04/2022 COMPARISON: Chest x-ray September 21, 2020 HISTORY: Altered mental status and weakness. TECHNIQUE: Frontal and lateral views of the chest are obtained. FINDINGS: There are low lung volumes with reticular increased opacities bilaterally redemonstrated. No pleural effusion or pneumothorax is seen bilaterally. The cardiac silhouette size remains enlarge d. Thoracic spinal stimulator device is redemonstrated. IMPRESSION: Cardiomegaly and low lung volumes with reticular increased opacities bilaterally favorin g pulmonary fibrotic change. No significant change from prior study.
[2022-11-04] MEDS ORDERED: HYDROcodone/APAP 10-325MG 1 EACH TAB PO ONE (12:20)
[2022-11-04 12:23] LABS: Basophils % (A) 0 %; Eosinophils % (A) 1 %; HCT 45.1 % (34.0-46.0); Lymphocytes # (A) 0.7 k/uL (1.0-4.8); Lymphocytes % (A) 9 %; MCH 29.7 pg (25.0-35.0); MCHC 33.2 g/dL (31.0-37.0); MCV 89.4 fL (80.0-100.0); Monocytes # (A) 0.5 k/uL (0-1.0); Monocytes % (A) 6 %; Neutrophils # (A) 6.8 k/uL (1.3-7.7); Neutrophils % (A) 84 %; Platelet Count 221 k/uL (150-450); RBC 5.04 m/uL (3.80-5.40); RDW 14.8 % (11.5-15.5); WBC 8.1 k/uL (3.8-10.6)
[2022-11-04] MEDS: SODIUM CHLORIDE 0.9% 1,000 ML IV SCH (12:34)
[2022-11-04 12:40] LABS: ALT 21 U/L (4-34); AST 32 U/L (14-36); African American GFR (CKD) >90 (>60 ml/min/1.73 sqM); Albumin 4.5 g/dL (3.5-5.0); Alkaline Phosphatase 54 U/L (38-126); Anion Gap 17 mmol/L; Blood Urea Nitrogen 17 mg/dL (7-17); Calcium 9.7 mg/dL (8.4-10.2); Carbon Dioxide 18 mmol/L (22-30); Chloride 107 mmol/L (98-107); Glucose 128 mg/dL (74-99); Non-African American GFR(CKD) 83 (>60 ml/min/1.73 sqM); Sodium 142 mmol/L (137-145); Total Bilirubin 0.8 mg/dL (0.2-1.3); Total Protein 7.5 g/dL (6.3-8.2)
[2022-11-04 12:47] LABS: INR 1.1 (<1.2); Partial Thromboplastin Time 21.9 sec (22.0-30.0); Prothrombin Time 11.2 sec (9.0-12.0)
[2022-11-04 12:55] LABS: Potassium 4.2 mmol/L (3.5-5.1)
--- NOTE | 2022-11-04 14:43 | CT ---
EXAMINATION TYPE: CT brain dev[facility] DATE OF EXAM: 11/04/2022 COMPARISON: NONE HISTORY: AMS with neck pain. CT DLP: 1499.9 mGycm. Automated Exposure Control for Dose Reduction was Utilized. TECHNIQUE: CT scan of the head and cervical spine are performed without contrast. FINDINGS: There is mild to moderate ventricular and sulcal prominence with sulcal prominence greatest over the bilateral high frontal lobes. Moderate low-attenuation deep and periventricular white matte r is present. Heterogeneous Completely opacified left maxillary sinus with sclerosis and thickened wa ll is present. Remainder of the paranasal sinuses are clear. Globes are intact bilaterally. Cervical spine is visualized in its entirety from C1 through upper thoracic levels and demonstrates loss of normal cervical curvature without evidence of acute fracture or dislocation. Prevertebral so ft tissue appears within normal limits. The C1-C2 articulation shows asymmetric left-sided narrowing on the coronal images. There is grade 1 anterolisthesis of C3 on C4 and C4 on C5 and to lesser degr ee C2 on C3. Vertebral body heights are preserved. Moderate to severe spurring and disc space narrowi ng C5-C6 and C6-C7 levels is present. There is grade 1 anterolisthesis C7 on T1. Spinal canal fairly well-maintained. Axial images show multilevel uncovertebral facet degenerative changes contributing to multilevel bila teral neural foraminal narrowing. Thyroid gland appears within normal limits. Lung apices show no pne umothorax. IMPRESSION: 1. There is no acute fracture or dislocation evident in the cervical spine. Multilevel spondylolisthe sis and degenerative changes present. 2. No acute intracranial hemorrhage or midline shift is seen. [id number] diffuse cerebral atrop hy and moderate chronic small vessel ischemic change is present.
[2022-11-04] MEDS ORDERED: NALOXONE 0.4 MG/ML 1 ML VIAL IV PRN (15:59)
[2022-11-04] MEDS ORDERED: HYDROcodone/APAP 10-325MG 1 EACH TAB PO PRN (18:29)
[2022-11-04] MEDS: PREGABALIN 75 MG CAP PO SCH (23:55)
[2022-11-04] MEDS: FAMOTIDINE 20 MG TAB PO SCH (23:55)
[2022-11-04] MEDS: BACLOFEN 10 MG TAB PO PRN (23:56)
[2022-11-05] MEDS: HYDROcodone/APAP 10-325MG 1 EACH TAB PO PRN ×3 (00:25→22:03)
[2022-11-05] MEDS: SODIUM CHLORIDE 0.9% 1,000 ML IV SCH ×3 (01:01→14:21)
[2022-11-05 06:06] LABS: Appearance,Urine Cloudy (Clear); Bacteria,Urine Many /hpf; Bilirubin,Urine Negative (Negative); Blood,Urine Small (Negative); Color,Urine Yellow; Glucose,Urine (UA) Negative (Negative); Ketones,Urine 1+ (Negative); Leukocyte Esterase,Urine Large (Negative); Mucus,Urine Rare /hpf; Nitrite,Urine Positive (Negative); Protein,Urine Trace (Negative); RBC,Urine 3 /hpf (0-5); Specific Gravity,Urine 1.013 (1.001-1.035); Squamous Epithelial Cell,Urine 2 /hpf (0-4); Urobilinogen,Urine <2.0 mg/dL (<2.0); WBC,Urine 22 /hpf (0-5)
[2022-11-05 06:09] LABS: Glucose,Whole Blood 130 mg/dL (70-110)
[2022-11-05] MEDS: metFORMIN 500 MG TAB PO SCH ×2 (07:56→19:15)
[2022-11-05 09:30] LABS: Basophils # (A) 0.03 X 10*3/uL (0.00-0.10); Basophils % (A) 0.3 %; Eosinophils % (A) 1.1 %; HCT 42.7 % (37.2-46.3); HGB 13.6 g/dL (12.0-15.0); Immature Grans, Automated 0.6 %; Lymphocytes # (A) 0.81 X 10*3/uL (0.90-5.00); Lymphocytes % (A) 9.1 %; MCH 28.9 pg (27.0-32.0); MCHC 31.9 g/dL (32.0-37.0); MCV 90.9 fL (80.0-97.0); Mean Platelet Volume 11.7 fL (9.5-12.2); Monocytes # (A) 0.77 X 10*3/uL (0.20-1.00); Monocytes % (A) 8.7 %; NRBC Per 100 WBC 0 /100 WBCS (0.0-0.0); Neutrophils # (A) 7.11 X 10*3/uL (1.80-7.70); Neutrophils % (A) 80.2 %; Platelet Count 210 X 10*3/uL (140-440); WBC 8.87 X 10*3/uL (4.50-10.00)
[2022-11-05 09:42] LABS: African American GFR (CKD) 94.8 (60.0-200.0); Anion Gap 17.3 mmol/L (10.00-18.00); BUN/Creat Ratio 19.57 Ratio (12.00-20.00); Blood Urea Nitrogen 13.7 mg/dL (9.0-27.0); Carbon Dioxide 19.7 mmol/L (20.0-27.5); Non-African American GFR(CKD) 81.8 (60.0-200.0); Potassium 3.8 mmol/L (3.5-5.5)
[2022-11-05] MEDS: ASPIRIN 81 MG PO SCH (09:47)
[2022-11-05] MEDS: CHOLECALCIFEROL 25 MCG (1000 IU) TABLET PO SCH (09:47)
[2022-11-05] MEDS: allopurinoL 100 MG TAB PO SCH (09:48)
[2022-11-05] MEDS: LOSARTAN 50 MG TAB PO SCH (09:49)
[2022-11-05] MEDS: PREGABALIN 75 MG CAP PO SCH ×2 (09:49→22:04)
[2022-11-05] MEDS: PRAVASTATIN SODIUM 20 MG TAB PO SCH (09:49)
[2022-11-05] MEDS: VERAPAMIL SR 120 MG TABLET.ER PO SCH (09:49)
[2022-11-05] MEDS: hydroCHLOROthiazide 12.5 MG CAP PO SCH (09:49)
[2022-11-05] MEDS: DICLOFENAC SODIUM GEL 100 GM TUBE TOPICAL SCH ×4 (10:12→22:07)
[2022-11-05 11:39] LABS: Glucose,Whole Blood 105 mg/dL (70-110)
[2022-11-05] MEDS ORDERED: DEXTROSE 50% SYRINGE 50 ML IVP PRN ×2 (14:18)
--- NOTE | 2022-11-05 14:20 | P.HPIM ---
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 Patient presented to [facility] emergency center due to mental status changes. Patient was found to be afebrile, blood pressure initially 184/100 otherwise vital signs were stable and pulse ox 96% on room air. In the emergency center, patient was given a dose of [place] 10 and started on IV fluids at 100 mL per hour, home medications have been resumed. At the time of this evaluation, patient states that she is feeling much better from the time she came in. [facility] WBC 8.1, hemoglobin 15, platelet count 221. INR 1.1. Sodium 142, potassium 4.2, chloride 107, CO2 18, BUN 17, creatinine 0.68. Troponin negative 1. Liver function tests are normal. Glucose 128. Urinalysis cloudy blood small, nitrate positive, leukoesterase large, WBC 22. Urine culture is in process. CAT scan of the brain and cervical spine reveals no acute fracture dislocation of the cervical spine. Multilevel spondylolisthesis and degenerative changes. No acute intracranial hemorrhage or midline shift. Mild to moderate diffuse cerebral atrophy and moderate chronic small vessel ischemic change. Chest x-ray reveals cardiomegaly with low lung volumes with reticular increased opacities bilaterally favoring pulmonary fibrotic change. No signal change from prior study. REVIEW OF SYSTEMS Constitutional: No fever, no chills, no night sweats. No weight change. No weakness, fatigue or lethargy. No daytime sleepiness. EENT: No headache. No blurred vision or double vision, no loss of vision. No loss of Hearing, no ringing in the ears, no dizziness. No nasal drainage or congestion. No epistaxis. No sore throat. Lungs: No shortness of breath, cough, no sputum production. No wheezing. Cardiovascular: No chest pain, no lower extremity edema. No palpitations. No paroxysmal nocturnal dyspnea. No orthopnea. No lightheadedness or dizziness. No syncopal episodes. Abdominal: No abdominal pain. No nausea, vomiting. No diarrhea. No constipation. No bloody or tarry stools. No loss of appetite. Genitourinary: No dysuria, increased frequency, urgency. No urinary retention. Musculoskeletal: No myalgias. No muscle weakness, no gait dysfunction, no frequent falls. No back pain. No neck pain. Integumentary: No wounds, no lesions. No rash or pruritus. No unusual bruising. No change in hair or nails. Neurologic: No aphasia. No facial droop. No change in mentation. No head injury. No headache. No paralysis. No paresthesia. Psychiatric: No depression. No anxiety. No mood swings. Endocrine: No abnormal blood sugars. No weight change. No excessive sweating or thirst. No cold intolerance. 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 SURGICAL HISTORY Cataract surgery left 20/20 Tonsillectomy and adenoidectomy Laminectomy with fusion of L1-S1 Lumbar discitis post-hardware removal SI joint fusion 2 Spinal cord stimulator Seroma on the back post-wound VAC line colonoscopy with polyps 2018. SOCIAL HISTORY Patient is a lifelong nonsmoker, no alcohol abuse, no illicit drug use. FAMILY HISTORY Father at age 80. Mother at the age of 86 from myocardial infarction had history of hypertension, hyperlipidemia. Patient has one brother with no major medical problems and one sister with no major medical problems. Patient has 3 daughters with no major medical problems. PHYSICAL EXAMINATION Gen: This is an 82-year-old obese female. She is resting recliner appears to be comfortable and in no acute distress. HEENT: Head is atraumatic, normocephalic. Pupils equal, round. Sclerae is anicteric. NECK: Supple. No JVD. No lymphadenopathy. No thyromegaly. LUNGS: Clear to auscultation. No wheezes or rhonchi. No intercostal retractions. HEART: First heart sound is depressed, second heart sound is normal, 2/6 systolic ejection murmur at the left sternal border. ABDOMEN: Soft. Bowel sounds are present. No masses. No tenderness. EXTREMITIES: No pedal edema. No calf tenderness. NEUROLOGICAL: Patient is awake, alert and oriented x3. Cranial nerves 2 through 12 are grossly intact. ASSESSMENT AND PLAN 1. Metabolic encephalopathy secondary to dehydration and UTI. 2. Dehydration. Continue patient on IV fluids 0.9 normal saline at 100 mL per hour. 3. Acute urinary tract infection. Continue patient on IV fluids, add ceftriax one 1 g daily. Aware of Keflex ALLERGY. 4. Hypertension. Continue patient on hydrochlorothiazide 12.5 mg daily, losartan 100 mg daily, verapamil 120 mg daily. 5. Hyperlipidemia. Continue pravastatin 20 mg daily. 6. Diabetes mellitus type 2. Continue patient on metformin 500 mg twice daily, add NovoLog scale before meals and at bedtime. 7. Diabetic polyneuropathy. Continue Lyrica 150 mg twice daily. 8. 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 Continue baclofen 10 mg 3 times daily as needed, Voltaren gel 2 g topically 4 times daily, [place] 1 every 6 hours as needed for pain. 9. Idiopathic gout. Continue allopurinol 100 mg daily. 10. Obstructive sleep apnea. Continue CPAP. 11. GI prophylaxis and gastroesophageal reflux disease. Continue Pepcid 40 mg at bedtime. 12. DVT prophylaxis. Lovenox 40 mg subcu daily. Patient will be admitted to the hospital for a minimum of 2 night stay. DISCHARGE PLAN To be determined. Consult with PT and OT. Impression and plan of care have been directed as dictated by the signing physician. Yokasta Haider nurse practitioner acting as scribe for signing physician. Past Medical History Past Medical History: Fibromyalgia, Hypertension Additional Past Medical History / Comment(s): UTI, fibromylagia, respiroaty failure History of Any Multi-Drug Resistant Organisms: None Reported Past Surgical History: Back Surgery Additional Past Surgical History / Comment(s): 5 back surgery since 2014. Past Anesthesia/Blood Transfusion Reactions: No Reported Reaction Past Psychological History: No Psychological Hx Reported Smoking Status: Never smoker Past Alcohol Use History: None Reported Past Drug Use History: None Reported Medications and Allergies Home Medications Medication Instructions Recorded Confirmed Type Aspirin EC [Ecotrin Low Dose] 81 mg PO DAILY 09/21/20 11/04/22 History Baclofen [Lioresal] 10 mg PO TID PRN 09/21/20 11/04/22 History Multivitamins, Thera [Multivitamin 1 tab PO DAILY 09/21/20 11/04/22 History (formulary)] Pregabalin [Lyrica] 150 mg PO BID 09/21/20 11/04/22 History allopurinoL [Zyloprim] 100 mg PO DAILY 09/21/20 11/04/22 History Acetaminophen Tab [Tylenol Tab] 1,000 mg PO QID PRN 11/04/22 11/04/22 History Cholecalciferol [Vitamin D3 (25 25 mcg PO DAILY 11/04/22 11/04/22 History Mcg = 1000 Iu)] Diclofenac Sodium Gel [Voltaren 1 applic TOPICAL QID PRN 11/04/22 11/04/22 History Gel] Famotidine 20 - 40 mg PO DAILY 11/04/22 11/04/22 History HYDROcodone/APAP 10-325MG [[place] 1 tab PO QID PRN 11/04/22 11/04/22 History 10-325] L.acidoph,Paracasei, B.lactis 1 cap PO DAILY 11/04/22 11/04/22 History [Probiotic] Losartan Potassium [Cozaar] 100 mg PO DAILY 11/04/22 11/04/22 History Omeprazole [PriLOSEC] 20 mg PO DAILY 11/04/22 11/04/22 History Pravastatin Sodium [Pravachol] 20 mg PO DAILY 11/04/22 11/04/22 History Ubidecarenone [Coenzyme Q10] 200 mg PO DAILY 11/04/22 11/04/22 History Verapamil HCl [Verapamil ER] 120 mg PO DAILY 11/04/22 11/04/22 History Vitamin B Complex 1 cap PO DAILY 11/04/22 11/04/22 History hydroCHLOROthiazide 12.5 mg PO DAILY 11/04/22 11/04/22 History metFORMIN HCL ER [Glucophage XR] 1,000 mg PO DAILY 11/04/22 11/04/22 History Allergies Allergy/AdvReac Type Severity Reaction Status Date / Time cephalexin [From Keflex] AdvReac Rash/Hives Verified 11/04/22 10:30 clindamycin AdvReac Rash/Hives Verified 11/04/22 10:30 oxybutynin [From Ditropan] AdvReac Hallucinati Verified 11/04/22 10:30 ons Physical Exam Vitals: Vital Signs Temp Pulse Pulse Resp BP BP Pulse Ox 11/05/22 07:13 97.9 F 91 17 168/86 95 11/05/22 02:22 97.4 F L 51 L 20 171/86 95 11/04/22 22:55 98.1 F 66 20 167/81 96 11/04/22 21:00 84 16 126/83 94 L 11/04/22 20:00 87 16 155/85 94 L 11/04/22 19:00 84 16 104/75 98 11/04/22 18:37 96 19 107/44 95 11/04/22 16:05 87 20 152/88 95 11/04/22 14:17 78 19 150/98 95 Intake and Output 11/04/22 11/05/22 11/05/22 22:59 06:59 14:59 Output Total 200 Balance -200 Output: Urine 200 Other: Voiding Method External Catheter External Catheter # Voids 1 Weight 90.718 kg Results CBC & Chem 7: 11/05/22 06:22 11/05/22 06:22 Labs: Abnormal Lab Results - Last 24 Hours (Table) 11/04/22 11/04/22 11/04/22 Range/Units 05:45 11:46 11:46 MCHC (32.0-37.0) g/dL RDW (11.5-14.5) % Immature Gran # (0.00-0.04) X 10*3/uL Lymphocytes # (0.90-5.00) X 10*3/uL APTT 21.9 L (22.0-30.0) sec Carbon Dioxide 18 L (22-30) mmol/L Glucose 128 H (74-99) mg/dL POC Glucose (mg/dL) (70-110) mg/dL Urine Appearance Cloudy H (Clear) Urine Protein Trace H (Negative) Urine Ketones 1+ H (Negative) Urine Blood Small H (Negative) Urine Nitrite Positive H (Negative) Ur Leukocyte Esterase Large H (Negative) Urine WBC 22 H (0-5) /hpf Urine Bacteria Many H (None) /hpf Urine Mucus Rare H (None) /hpf 11/05/22 11/05/22 11/05/22 Range/Units 06:07 06:22 06:22 MCHC 31.9 L (32.0-37.0) g/dL RDW 15.0 H (11.5-14.5) % Immature Gran # 0.05 H (0.00-0.04) X 10*3/uL Lymphocytes # 0.81 L (0.90-5.00) X 10*3/uL APTT (22.0-30.0) sec Carbon Dioxide 19.7 L (22-30) mmol/L Glucose 127 H (74-99) mg/dL POC Glucose (mg/dL) 130 H (70-110) mg/dL Urine Appearance (Clear) Urine Protein (Negative) Urine Ketones (Negative) Urine Blood (Negative) Urine Nitrite (Negative) Ur Leukocyte Esterase (Negative) Urine WBC (0-5) /hpf Urine Bacteria (None) /hpf Urine Mucus (None) /hpf Microbiology - Last 24 Hours (Table) 11/04/22 05:45 Urine Culture - Preliminary Urine,Voided
[2022-11-05 16:26] LABS: Glucose,Whole Blood 198 mg/dL (70-110)
[2022-11-05] MEDS: INSULIN ASPART (NovoLOG) 100 UNIT/ML VIAL SQ SCH ×2 (17:36→22:04)
[2022-11-05 20:33] LABS: Glucose,Whole Blood 153 mg/dL (70-110)
[2022-11-05] MEDS: FAMOTIDINE 20 MG TAB PO SCH (22:03)
[2022-11-05] MEDS: BACLOFEN 10 MG TAB PO PRN (22:04)
[2022-11-06] MEDS: SODIUM CHLORIDE 0.9% 1,000 ML IV SCH (00:50)
[2022-11-06] MEDS: INSULIN ASPART (NovoLOG) 100 UNIT/ML VIAL SQ SCH ×4 (06:06→21:09)
[2022-11-06 06:07] LABS: Glucose,Whole Blood 148 mg/dL (70-110)
[2022-11-06] MEDS: PRAVASTATIN SODIUM 20 MG TAB PO SCH (09:53)
[2022-11-06] MEDS: hydroCHLOROthiazide 12.5 MG CAP PO SCH (09:53)
[2022-11-06] MEDS: metFORMIN 500 MG TAB PO SCH ×2 (09:53→18:03)
[2022-11-06] MEDS: VERAPAMIL SR 120 MG TABLET.ER PO SCH (09:54)
[2022-11-06] MEDS: allopurinoL 100 MG TAB PO SCH (09:54)
[2022-11-06] MEDS: LOSARTAN 50 MG TAB PO SCH (09:54)
[2022-11-06] MEDS: CHOLECALCIFEROL 25 MCG (1000 IU) TABLET PO SCH (09:55)
[2022-11-06] MEDS: PREGABALIN 75 MG CAP PO SCH ×2 (09:55→21:11)
[2022-11-06] MEDS: DICLOFENAC SODIUM GEL 100 GM TUBE TOPICAL SCH ×4 (09:56→22:16)
[2022-11-06] MEDS: ENOXAPARIN 40 MG/0.4 ML SYRINGE SQ SCH (09:56)
[2022-11-06] MEDS: ASPIRIN 81 MG PO SCH (09:58)
[2022-11-06] MEDS: HYDROcodone/APAP 10-325MG 1 EACH TAB PO PRN ×2 (09:58→22:23)
[2022-11-06 11:12] LABS: Glucose,Whole Blood 140 mg/dL (70-110)
--- NOTE | 2022-11-06 14:07 | P.PN ---
Subjective Progress Note Date: 11/06/22 HISTORY OF PRESENT ILLNESS This is an 82-year-old female patient with PMH of HTN, HLD, gastroesophageal reflux disease, diabetes mellitus type 2, spondylosis of the lumbar spine with r adiculopathy, osteoarthritis of the knees, idiopathic gout, diabetic polyneuropathy, obstructive sleep apnea. Patient presented to [facility] emergency center due to mental status changes. Patient was found to be afebrile, blood pressure initially 184/100 otherwise vital signs were stable and pulse ox 96% on room air. In the emergency center, patient was given a dose of [place] 10 and started on IV fluids at 100 mL per hour, home medications have been resumed. At the time of this evaluation, patient states that she is feeling much better from the time she came in. [facility]. WBC 8.1, hemoglobin 15, platelet count 221. INR 1.1. Sodium 142, potassium 4.2, chloride 107, CO2 18, BUN 17, creatinine 0.68. Troponin negative 1. Liver function tests are normal. Glucose 128. Urinalysis cloudy blood small, nitrate positive, leukoesterase large, WBC 22. Urine culture is in process. CAT scan of the brain and cervical spine reveals no acute fracture dislocation of the cervical spine. Multilevel spondylolisthesis and degenerative changes. No acute intracranial hemorrhage or midline shift. Mild to moderate diffuse cerebral atrophy and moderate chronic small vessel ischemic change. Chest x-ray reveals cardiomegaly with low lung volumes with reticular increased opacities bilaterally favoring pulmonary fibrotic change. No signal change from prior study. 11/06: Patient remains afebrile, heart rate in the 60s, blood pressure 119/54, pulse ox 92-98% on room air. quality assurance monitor body is sinus rhythm. Capillary blood glucose running between 140 153. Urine culture is showing gram-negative bacilli. Patient is continued on ceftriaxone and seems to be tolerating. Patient has been evaluated by therapy and recommended home with home care. Patient has declined home care at this point. REVIEW OF SYSTEMS Constitutional: No fever, no chills, no night sweats. No weight change. No weakness, fatigue or lethargy. No daytime sleepiness. EENT: No headache. No blurred vision or double vision, no loss of vision. No loss of Hearing, no ringing in the ears, no dizziness. No nasal drainage or c ongestion. No epistaxis. No sore throat. Lungs: No shortness of breath, cough, no sputum production. No wheezing. Cardiovascular: No chest pain, no lower extremity edema. No palpitations. No paroxysmal nocturnal dyspnea. No orthopnea. No lightheadedness or dizziness. No syncopal episodes. Abdominal: No abdominal pain. No nausea, vomiting. No diarrhea. No constipation. No bloody or tarry stools. No loss of appetite. Genitourinary: No dysuria, increased frequency, urgency. No urinary retention. Musculoskeletal: No myalgias. No muscle weakness, no gait dysfunction, no frequent falls. No back pain. No neck pain. Integumentary: No wounds, no lesions. No rash or pruritus. No unusual bruising. No change in hair or nails. Neurologic: No aphasia. No facial droop. No change in mentation. No head injury. No headache. No paralysis. No paresthesia. Psychiatric: No depression. No anxiety. No mood swings. Endocrine: No abnormal blood sugars. No weight change. No excessive sweating or thirst. No cold intolerance. PHYSICAL EXAMINATION Gen: This is an 82-year-old obese female. She is resting recliner appears to be comfortable and in no acute distress. HEENT: Head is atraumatic, normocephalic. Pupils equal, round. Sclerae is anicteric. NECK: Supple. No JVD. No lymphadenopathy. No thyromegaly. LUNGS: Clear to auscultation. No wheezes or rhonchi. No intercostal retractions. HEART: First heart sound is depressed, second heart sound is normal, 2/6 systolic ejection murmur at the left sternal border. ABDOMEN: Soft. Bowel sounds are present. No masses. No tenderness. External female catheter in place EXTREMITIES: No pedal edema. No calf tenderness. NEUROLOGICAL: Patient is awake, alert and oriented x3. Cranial nerves 2 through 12 are grossly intact. ASSESSMENT AND PLAN 1. Metabolic encephalopathy secondary to dehydration and UTI. 2. Dehydration. Discontinue IV fluids. 3. Acute urinary tract infection. Continue patient on ceftriaxone 1 g daily. Aware of Keflex ALLERGY. Patient is tolerating ceftriaxone. We are waiting for urine culture to finalize. 4. Hypertension. Continue patient on hydrochlorothiazide 12.5 mg daily, losartan 100 mg daily, verapamil 120 mg daily. 5. Hyperlipidemia. Continue pravastatin 20 mg daily. 6. Diabetes mellitus type 2. Continue patient on metformin 500 mg twice daily, add NovoLog scale before meals and at bedtime. 7. Diabetic polyneuropathy. Continue Lyrica 150 mg twice daily. 8. 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 Continue baclofen 10 mg 3 times daily as needed, Voltaren gel 2 g topically 4 times daily, [place] 1 every 6 hours as needed for pain. 9. Idiopathic gout. Continue allopurinol 100 mg daily. 10. Obstructive sleep apnea. Continue CPAP. 11. GI prophylaxis and gastroesophageal reflux disease. Continue Pepcid 40 mg at bedtime. 12. DVT prophylaxis. Lovenox 40 mg subcu daily. DISCHARGE PLAN Home without homecare in the next 24 hours. Impression and plan of care have been directed as dictated by the signing physician. oYkasta Haider nurse practitioner acting as scribe for signing physician. Objective - Vital Signs Vital signs: Vital Signs Temp 98.6 F 11/06/22 13:59 Pulse 61 11/06/22 13:59 Resp 18 11/06/22 13:59 BP 119/54 11/06/22 13:59 Pulse Ox 92 L 11/06/22 13:59 FiO2 Intake & Output 11/05/22 11/06/22 11/06/22 18:59 06:59 18:59 Output Total 500 1200 Balance -500 -1200 Output: Urine 500 1200 Other: Voiding Method External Catheter External Catheter External Catheter # Bowel Movements 0 - Labs CBC & Chem 7: 11/05/22 06:22 11/05/22 06:22 Labs: Abnormal Lab Results - Last 24 Hours (Table) 11/05/22 11/05/22 11/05/22 Range/Units 06:22 16:25 20:32 POC Glucose (mg/dL) 198 H 153 H (70-110) mg/dL Hemoglobin A1c 7.1 H (0.0-6.0) % 11/06/22 11/06/22 Range/Units 06:05 11:11 POC Glucose (mg/dL) 148 H 140 H (70-110) mg/dL Hemoglobin A1c (0.0-6.0) % Microbiology - Last 24 Hours (Table) 11/04/22 05:45 Urine Culture - Preliminary Urine,Voided Gram Neg Bacilli
[2022-11-06 16:41] LABS: Glucose,Whole Blood 140 mg/dL (70-110)
[2022-11-06 20:19] LABS: Glucose,Whole Blood 143 mg/dL (70-110)
[2022-11-06] MEDS: FAMOTIDINE 20 MG TAB PO SCH (21:11)
[2022-11-06] MEDS: BACLOFEN 10 MG TAB PO PRN (22:23)
[2022-11-07] MEDS: HYDROcodone/APAP 10-325MG 1 EACH TAB PO PRN ×4 (04:19→22:23)
[2022-11-07 05:43] LABS: Glucose,Whole Blood 109 mg/dL (70-110)
[2022-11-07] MEDS: INSULIN ASPART (NovoLOG) 100 UNIT/ML VIAL SQ SCH ×4 (05:45→21:15)
[2022-11-07] MEDS: PRAVASTATIN SODIUM 20 MG TAB PO SCH (10:44)
[2022-11-07] MEDS: ASPIRIN 81 MG PO SCH (10:44)
[2022-11-07] MEDS: CHOLECALCIFEROL 25 MCG (1000 IU) TABLET PO SCH (10:44)
[2022-11-07] MEDS: LOSARTAN 50 MG TAB PO SCH (10:44)
[2022-11-07] MEDS: VERAPAMIL SR 120 MG TABLET.ER PO SCH (10:44)
[2022-11-07] MEDS: PREGABALIN 75 MG CAP PO SCH ×2 (10:44→21:05)
[2022-11-07] MEDS: hydroCHLOROthiazide 12.5 MG CAP PO SCH (10:44)
[2022-11-07] MEDS: allopurinoL 100 MG TAB PO SCH (10:44)
[2022-11-07] MEDS: ENOXAPARIN 40 MG/0.4 ML SYRINGE SQ SCH (10:45)
[2022-11-07] MEDS: metFORMIN 500 MG TAB PO SCH ×2 (10:45→17:44)
[2022-11-07] MEDS: DICLOFENAC SODIUM GEL 100 GM TUBE TOPICAL SCH ×4 (10:46→23:04)
[2022-11-07 11:05] LABS: Glucose,Whole Blood 136 mg/dL (70-110)
[2022-11-07 11:11] LABS: Basophils # (A) 0.05 X 10*3/uL (0.00-0.10); Basophils % (A) 0.6 %; Eosinophils # (A) 0.11 X 10*3/uL (0.04-0.35); Eosinophils % (A) 1.3 %; HCT 45.9 % (37.2-46.3); HGB 14.1 g/dL (12.0-15.0); Immature Grans, Automated 0.5 %; Lymphocytes # (A) 0.77 X 10*3/uL (0.90-5.00); Lymphocytes % (A) 9.1 %; MCH 28.5 pg (27.0-32.0); MCHC 30.7 g/dL (32.0-37.0); MCV 92.9 fL (80.0-97.0); Mean Platelet Volume 12.1 fL (9.5-12.2); Monocytes # (A) 0.58 X 10*3/uL (0.20-1.00); Monocytes % (A) 6.9 %; NRBC Per 100 WBC 0 /100 WBCS (0.0-0.0); Neutrophils # (A) 6.91 X 10*3/uL (1.80-7.70); Neutrophils % (A) 81.6 %; Platelet Count 214 X 10*3/uL (140-440); RBC 4.94 X 10*6/uL (4.10-5.20); WBC 8.46 X 10*3/uL (4.50-10.00)
[2022-11-07 12:00] LABS: African American GFR (CKD) 94.8 (60.0-200.0); Albumin/Globulin Ratio 1.67 (1.60-3.17); Anion Gap 11.3 mmol/L (10.00-18.00); BUN/Creat Ratio 16.29 Ratio (12.00-20.00); Blood Urea Nitrogen 11.4 mg/dL (9.0-27.0); Carbon Dioxide 23.7 mmol/L (20.0-27.5); Globulin 2.4 g/dL (1.6-3.3); Non-African American GFR(CKD) 81.8 (60.0-200.0); Potassium 4.3 mmol/L (3.5-5.5); Total Bilirubin 0.2 mg/dL (0.30-1.20); Total Protein 6.4 g/dL (6.2-8.2)
--- NOTE | 2022-11-07 15:35 | P.PN ---
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 Patient presented to [facility] emergency center due to mental status changes. Patient was found to be afebrile, blood pressure initially 184/100 otherwise vital signs were stable and pulse ox 96% on room air. In the emergency center, patient was given a dose of [place] 10 and started on IV fluids at 100 mL per hour, home medications have been resumed. At the time of this evaluation, patient states that she is feeling much better from the time she came in. [facility] WBC 8.1, hemoglobin 15, platelet count 221. INR 1.1. Sodium 142, potassium 4.2, chloride 107, CO2 18, BUN 17, creatinine 0.68. Troponin negative 1. Liver function tests are normal. Glucose 128. Urinalysis cloudy blood small, nitrate positive, leukoesterase large, WBC 22. Urine culture is in process. CAT scan of the brain and cervical spine reveals no acute fracture dislocation of the cervical spine. Multilevel spondylolisthesis and degenerative changes. No acute intracranial hemorrhage or midline shift. Mild to moderate diffuse cerebral atrophy and moderate chronic small vessel ischemic change. Chest x-ray reveals cardiomegaly with low lung volumes with reticular increased opacities bilaterally favoring pulmonary fibrotic change. No signal change from prior study. 11/06: Patient remains afebrile, heart rate in the 60s, blood pressure 119/54, pulse ox 92-98% on room air. powder loader is sinus rhythm. Capillary blood glucose running between 140 153. Urine culture is showing gram-negative bacilli. Patient is continued on ceftriaxone and seems to be tolerating. Patient has been evaluated by therapy and recommended home with home care. Patient has declined home care at this point. 11/07: Patient complains of pain in her bilateral lower extremity ultrasound will be ordered to rule out DVT. Patient is continued on IV antibiotics and she has continued to tolerate ceftriaxone well. No rashes developed. Urine culture is still showing gram-negative bacilli and has not been finalized. Patient has been afebrile, heart rate in the 50s and 60s, blood pressure 161/87, pulse ox 95% on room air. CBC is unremarkable. Electrolytes are normal. Creatinine 0.7. Anticipate discharge home tomorrow once urine culture has been finalized. REVIEW OF SYSTEMS Constitutional: No fever, no chills, no night sweats. No weight change. No weakness, fatigue or lethargy. No daytime sleepiness. EENT: No headache. No blurred vision or double vision, no loss of vision. No loss of Hearing, no ringing in the ears, no dizziness. No nasal drainage or congestion. No epistaxis. No sore throat. Lungs: No shortness of breath, cough, no sputum production. No wheezing. Cardiovascular: No chest pain, no lower extremity edema. No palpitations. No paroxysmal nocturnal dyspnea. No orthopnea. No lightheadedness or dizziness. No syncopal episodes. Abdominal: No abdominal pain. No nausea, vomiting. No diarrhea. No constipation. No bloody or tarry stools. No loss of appetite. Genitourinary: No dysuria, increased frequency, urgency. No urinary retention. Musculoskeletal: No myalgias. No muscle weakness, no gait dysfunction, no frequent falls. No back pain. No neck pain. Integumentary: No wounds, no lesions. No rash or pruritus. No unusual bruising. No change in hair or nails. Neurologic: No aphasia. No facial droop. No change in mentation. No head injury. No headache. No paralysis. No paresthesia. Psychiatric: No depression. No anxiety. No mood swings. Endocrine: No abnormal blood sugars. No weight change. No excessive sweating or thirst. No cold intolerance. PHYSICAL EXAMINATION Gen: This is an 82-year-old obese female. She is resting recliner appears to be comfortable and in no acute distress. HEENT: Head is atraumatic, normocephalic. Pupils equal, round. Sclerae is anicteric. NECK: Supple. No JVD. No lymphadenopathy. No thyromegaly. LUNGS: Clear to auscultation. No wheezes or rhonchi. No intercostal retractions. HEART: First heart sound is depressed, second heart sound is normal, 2/6 systolic ejection murmur at the left sternal border. ABDOMEN: Soft. Bowel sounds are present. No masses. No tenderness. EXTREMITIES: No pedal edema. No calf tenderness. NEUROLOGICAL: Patient is awake, alert and oriented x3. Cranial nerves 2 through 12 are grossly intact. ASSESSMENT AND PLAN 1. Metabolic encephalopathy secondary to dehydration and UTI. 2. Dehydration. Discontinue IV fluids. 3. Acute urinary tract infection. Continue patient on ceftriaxone 1 g daily. Aware of Keflex ALLERGY. Patient is tolerating ceftriaxone. We are waiting for urine culture to finalize. 4. Hypertension. Continue patient on hydrochlorothiazide 12.5 mg daily, losartan 100 mg daily, verapamil 120 mg daily. 5. Hyperlipidemia. Continue pravastatin 20 mg daily. 6. Diabetes mellitus type 2. Continue patient on metformin 500 mg twice daily, add NovoLog scale before meals and at bedtime. 7. Diabetic polyneuropathy. Continue Lyrica 150 mg twice daily. 8. 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 Continue baclofen 10 mg 3 times daily as needed, Voltaren gel 2 g topically 4 times daily, [place] 1 every 6 hours as needed for pain. 9. Idiopathic gout. Continue allopurinol 100 mg daily. 10. Obstructive sleep apnea. Continue CPAP. 11. GI prophylaxis and gastroesophageal reflux disease. Continue Pepcid 40 mg at bedtime. 12. DVT prophylaxis. Lovenox 40 mg subcu daily. DISCHARGE PLAN Home without homecare in the next 24 hours. Impression and plan of care have been directed as dictated by the signing physician. Yokasta Haider nurse practitioner acting as scribe for signing physician. Objective - Vital Signs Vital signs: Vital Signs Temp 97.8 F 11/07/22 07:15 Pulse 68 11/07/22 07:15 Resp 16 11/07/22 07:15 BP 185/88 11/07/22 07:20 Pulse Ox 98 11/07/22 07:15 FiO2 Intake & Output 11/06/22 11/07/22 11/07/22 18:59 06:59 18:59 Intake Total 360 Output Total 1000 Balance -640 Intake: Oral 360 Output: Urine 1000 Other: Voiding Method External Catheter External Catheter External Catheter # Voids 1 # Bowel Movements 1 - Labs CBC & Chem 7: 11/07/22 07:30 11/07/22 07:30 Labs: Abnormal Lab Results - Last 24 Hours (Table) 11/06/22 11/06/22 11/07/22 Range/Units 16:40 20:18 07:30 MCHC 30.7 L (32.0-37.0) g/dL RDW 15.0 H (11.5-14.5) % Lymphocytes # 0.77 L (0.90-5.00) X 10*3/uL Glucose (70-110) mg/dL POC Glucose (mg/dL) 140 H 143 H (70-110) mg/dL Total Bilirubin (0.30-1.20) mg/dL 11/07/22 11/07/22 Range/Units 07:30 11:04 MCHC (32.0-37.0) g/dL RDW (11.5-14.5) % Lymphocytes # (0.90-5.00) X 10*3/uL Glucose 123 H (70-110) mg/dL POC Glucose (mg/dL) 136 H (70-110) mg/dL Total Bilirubin 0.20 L (0.30-1.20) mg/dL Microbiology - Last 24 Hours (Table) 11/04/22 05:45 Urine Culture - Preliminary Urine,Voided Gram Neg Bacilli
[2022-11-07 16:20] LABS: Glucose,Whole Blood 112 mg/dL (70-110)
--- NOTE | 2022-11-07 19:50 | US ---
EXAMINATION TYPE: US venous doppler duplex LE BI DATE OF EXAM: 11/07/2022 5:00 PM Exam done portable COMPARISON: NONE CLINICAL HISTORY: pain, rule out dvt. Bilateral ankle pain SIDE PERFORMED: Bilateral TECHNIQUE: The lower extremity deep venous system is examined utilizing real time linear array sonog henrry with graded compression, doppler sonography and color-flow sonography. VESSELS IMAGED: Common Femoral Vein Deep Femoral Vein Greater Saphenous Vein * Femoral Vein Popliteal Vein Small Saphenous Vein * Proximal Calf Veins (* superficial vessels) DESCRIPTION: Grayscale, color doppler, spectral doppler imaging performed of the deep veins of the lower extremiti es. There is normal flow, compressibility, vascular waveforms. IMPRESSION: Right lower extremity: Negative for DVT. Left lower extremity: Negative for DVT. Incidental left popliteal fossa Fernandez cyst measuring 4.3 x 1. 8 x 3.7 cm.
[2022-11-07 20:33] LABS: Glucose,Whole Blood 134 mg/dL (70-110)
[2022-11-07] MEDS: BACLOFEN 10 MG TAB PO PRN (21:05)
[2022-11-07] MEDS: FAMOTIDINE 20 MG TAB PO SCH (21:05)
[2022-11-08] MEDS: HYDROcodone/APAP 10-325MG 1 EACH TAB PO PRN ×2 (04:25→16:20)
[2022-11-08 06:10] LABS: Glucose,Whole Blood 130 mg/dL (70-110)
[2022-11-08] MEDS: INSULIN ASPART (NovoLOG) 100 UNIT/ML VIAL SQ SCH ×3 (06:32→17:24)
[2022-11-08] MEDS: metFORMIN 500 MG TAB PO SCH ×2 (06:33→17:48)
[2022-11-08 07:00] VITALS: RESP 15
[2022-11-08] MEDS: allopurinoL 100 MG TAB PO SCH (09:17)
[2022-11-08] MEDS: PRAVASTATIN SODIUM 20 MG TAB PO SCH (09:17)
[2022-11-08] MEDS: PREGABALIN 75 MG CAP PO SCH (09:17)
[2022-11-08] MEDS: ASPIRIN 81 MG PO SCH (09:18)
[2022-11-08] MEDS: CHOLECALCIFEROL 25 MCG (1000 IU) TABLET PO SCH (09:18)
[2022-11-08] MEDS: DICLOFENAC SODIUM GEL 100 GM TUBE TOPICAL SCH ×3 (09:18→16:21)
[2022-11-08] MEDS: hydroCHLOROthiazide 12.5 MG CAP PO SCH (09:18)
[2022-11-08] MEDS: VERAPAMIL SR 120 MG TABLET.ER PO SCH (09:18)
[2022-11-08] MEDS: LOSARTAN 50 MG TAB PO SCH (09:18)
[2022-11-08] MEDS: ENOXAPARIN 40 MG/0.4 ML SYRINGE SQ SCH (09:25)
[2022-11-08 11:53] LABS: Glucose,Whole Blood 114 mg/dL (70-110)
[2022-11-08 12:27] VITALS: BP 168/95; PULSE 76; TEMP 97.2
--- NOTE | 2022-11-08 13:14 | P.PN ---
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 Patient presented to [facility] emergency center due to mental status changes. Patient was found to be afebrile, blood pressure initially 184/100 otherwise vital signs were stable and pulse ox 96% on room air. In the emergency center, patient was given a dose of Scott 10 and started on IV fluids at 100 mL per hour, home medications have been resumed. At the time of this evaluation, patient states that she is feeling much better from the time she came in. [facility]. WBC 8.1, hemoglobin 15, platelet count 221. INR 1.1. Sodium 142, potassium 4.2, chloride 107, CO2 18, BUN 17, creatinine 0.68. Troponin negative 1. Liver function tests are normal. Glucose 128. Urinalysis cloudy blood small, nitrate positive, leukoesterase large, WBC 22. Urine culture is in process. CAT scan of the brain and cervical spine reveals no acute fracture dislocation of the cervical spine. Multilevel spondylolisthesis and degenerative changes. No acute intracranial hemorrhage or midline shift. Mild to moderate diffuse cerebral atrophy and moderate chronic small vessel ischemic change. Chest x-ray reveals cardiomegaly with low lung volumes with reticular increased opacities bilaterally favoring pulmonary fibrotic change. No signal change from prior study. 11/06: Patient remains afebrile, heart rate in the 60s, blood pressure 119/54, pulse ox 92-98% on room air. hall monitor is sinus rhythm. Capillary blood glucose running between 140 153. Urine culture is showing gram-negative bacilli. Patient is continued on ceftriaxone and seems to be tolerating. Patient has been evaluated by therapy and recommended home with home care. Patient has declined home care at this point. 11/07: Patient complains of pain in her bilateral lower extremity ultrasound will be ordered to rule out DVT. Patient is continued on IV antibiotics and she has continued to tolerate ceftriaxone well. No rashes developed. Urine culture is still showing gram-negative bacilli and has not been finalized. Patient has been afebrile, heart rate in the 50s and 60s, blood pressure 161/87, pulse ox 95% on room air. CBC is unremarkable. Electrolytes are normal. Creatinine 0.7. Anticipate discharge home tomorrow once urine culture has been finalized. REVIEW OF SYSTEMS Constitutional: No fever, no chills, no night sweats. No weight change. No weakness, fatigue or lethargy. No daytime sleepiness. EENT: No headache. No blurred vision or double vision, no loss of vision. No loss of Hearing, no ringing in the ears, no dizziness. No nasal drainage or congestion. No epistaxis. No sore throat. Lungs: No shortness of breath, cough, no sputum production. No wheezing. Cardiovascular: No chest pain, no lower extremity edema. No palpitations. No paroxysmal nocturnal dyspnea. No orthopnea. No lightheadedness or dizziness. No syncopal episodes. Abdominal: No abdominal pain. No nausea, vomiting. No diarrhea. No constipation. No bloody or tarry stools. No loss of appetite. Genitourinary: No dysuria, increased frequency, urgency. No urinary retention. Musculoskeletal: No myalgias. No muscle weakness, no gait dysfunction, no frequent falls. No back pain. No neck pain. Integumentary: No wounds, no lesions. No rash or pruritus. No unusual bruising. No change in hair or nails. Neurologic: No aphasia. No facial droop. No change in mentation. No head injury. No headache. No paralysis. No paresthesia. Psychiatric: No depression. No anxiety. No mood swings. Endocrine: No abnormal blood sugars. No weight change. No excessive sweating or thirst. No cold intolerance. PHYSICAL EXAMINATION Gen: This is an 82-year-old obese female. She is resting recliner appears to be comfortable and in no acute distress. HEENT: Head is atraumatic, normocephalic. Pupils equal, round. Sclerae is anicteric. NECK: Supple. No JVD. No lymphadenopathy. No thyromegaly. LUNGS: Clear to auscultation. No wheezes or rhonchi. No intercostal retractions. HEART: First heart sound is depressed, second heart sound is normal, 2/6 systolic ejection murmur at the left sternal border. ABDOMEN: Soft. Bowel sounds are present. No masses. No tenderness. EXTREMITIES: No pedal edema. No calf tenderness. NEUROLOGICAL: Patient is awake, alert and oriented x3. Cranial nerves 2 through 12 are grossly intact. ASSESSMENT AND PLAN 1. Metabolic encephalopathy secondary to dehydration and UTI. 2. Dehydration. Discontinue IV fluids. 3. Acute urinary tract infection. Continue patient on ceftriaxone 1 g daily. Aware of Keflex ALLERGY. Patient is tolerating ceftriaxone. We are waiting for urine culture to finalize. 4. Hypertension. Continue patient on hydrochlorothiazide 12.5 mg daily, losartan 100 mg daily, verapamil 120 mg daily. 5. Hyperlipidemia. Continue pravastatin 20 mg daily. 6. Diabetes mellitus type 2. Continue patient on metformin 500 mg twice daily, add NovoLog scale before meals and at bedtime. 7. Diabetic polyneuropathy. Continue Lyrica 150 mg twice daily. 8. 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 Continue baclofen 10 mg 3 times daily as needed, Voltaren gel 2 g topically 4 times daily, Scott 1 every 6 hours as needed for pain. 9. Idiopathic gout. Continue allopurinol 100 mg daily. 10. Obstructive sleep apnea. Continue CPAP. 11. GI prophylaxis and gastroesophageal reflux disease. Continue Pepcid 40 mg at bedtime. 12. DVT prophylaxis. Lovenox 40 mg subcu daily. DISCHARGE PLAN Home without homecare in the next 24 hours. Impression and plan of care have been directed as dictated by the signing physician. Yokasta Haider nurse practitioner acting as scribe for signing physician. Objective - Vital Signs Vital signs: Vital Signs Temp 97.2 F L 11/08/22 12:27 Pulse 76 11/08/22 12:27 Resp 15 11/08/22 12:27 BP 168/95 11/08/22 12:27 Pulse Ox 95 11/08/22 12:27 FiO2 Intake & Output 11/07/22 11/08/22 11/08/22 18:59 06:59 18:59 Intake Total 820 Output Total 1000 1850 1900 Balance -999 -1030 -1900 Intake: Oral 820 Output: Urine 1000 1850 1900 Other: Voiding Method External Catheter External Catheter # Voids 1 1 - Labs CBC & Chem 7: 11/07/22 07:30 11/07/22 07:30 Labs: Abnormal Lab Results - Last 24 Hours (Table) 11/07/22 11/07/22 11/08/22 Range/Units 16:19 20:32 06:09 POC Glucose (mg/dL) 112 H 134 H 130 H (70-110) mg/dL 11/08/22 Range/Units 11:29 POC Glucose (mg/dL) 114 H (70-110) mg/dL Microbiology - Last 24 Hours (Table) 11/04/22 05:45 Urine Culture - Final Urine,Voided Escherichia coli
--- NOTE | 2022-11-08 13:23 | P.DS ---
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 Patient presented to [facility] emergency center due to mental status changes. Patient was found to be afebrile, blood pressure initially 184/100 otherwise vital signs were stable and pulse ox 96% on room air. In the emergency center, patient was given a dose of [place] 10 and started on IV fluids at 100 mL per hour, home medications have been resumed. At the time of this evaluation, patient states that she is feeling much better from the time she came in. Patient was admitted to the [facility] floor. WBC 8.1, hemoglobin 15, platelet count 221. INR 1.1. Sodium 142, potassium 4.2, chloride 107, CO2 18, BUN 17, creatinine 0.68. Troponin negative 1. Liver function tests are normal. Glucose 128. Urinalysis cloudy blood small, nitrate positive, leukoesterase large, WBC 22. Urine culture is in process. CAT scan of the brain and cervical spine reveals no acute fracture dislocation of the cervical spine. Multilevel spondylolisthesis and degenerative changes. No acute intracranial hemorrhage or midline shift. Mild to moderate diffuse cerebral atrophy and moderate chronic small vessel ischemic change. Chest x-ray reveals cardiomegaly with low lung volumes with reticular increased opacities bilaterally favoring pulmonary fibrotic change. No signal change from prior study. 11/07: Patient complains of pain in her bilateral lower extremity ultrasound will be ordered to rule out DVT. Patient is continued on IV antibiotics and she has continued to tolerate ceftriaxone well. No rashes developed. Urine culture is still showing gram-negative bacilli and has not been finalized. Patient has been afebrile, heart rate in the 50s and 60s, blood pressure 161/87, pulse ox 95% on room air. CBC is unremarkable. Electrolytes are normal. Creatinine 0.7. Anticipate discharge home tomorrow once urine culture has been finalized. 11/08: Ultrasound of the bilateral lower extremities negative for DVT. Incidental left popliteal Fernandez's cyst. Patient remains afebrile, heart rate 76, blood pressure 168/95, pulse ox 95% on room air. DISCHARGE DIAGNOSES 1. Metabolic encephalopathy secondary to dehydration and UTI. 2. Dehydration. 3. Acute E. coli urinary tract infection. 4. Hypertension. 5. Hyperlipidemia. 6. Diabetes mellitus type 2. 7. Diabetic polyneuropathy. 8. 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 9. Idiopathic gout. 10. Obstructive sleep apnea. DISCHARGE PLAN Home without homecare Greater than 35 minutes was utilized and coordinating patient's discharge. Impression and plan of care have been directed as dictated by the signing physician. Yokasta Haider nurse practitioner acting as scribe for signing physician. Patient Condition at Discharge: Stable Plan - Discharge Summary New Discharge Prescriptions: New metFORMIN HCL [Glucophage] 500 mg PO BID-W/MEALS #60 tab cefUROXime axetiL [Ceftin] 500 mg PO BID 5 Days #10 tab Continue Pregabalin [Lyrica] 150 mg PO BID Baclofen [Lioresal] 10 mg PO TID PRN PRN Reason: Muscle Spasm allopurinoL [Zyloprim] 100 mg PO DAILY Multivitamins, Thera [Multivitamin (formulary)] 1 tab PO DAILY Aspirin EC [Ecotrin Low Dose] 81 mg PO DAILY Famotidine 20 - 40 mg PO DAILY Verapamil HCl [Verapamil ER] 120 mg PO DAILY Omeprazole [PriLOSEC] 20 mg PO DAILY Losartan Potassium [Cozaar] 100 mg PO DAILY Vitamin B Complex 1 cap PO DAILY Diclofenac Sodium Gel [Voltaren Gel] 1 applic TOPICAL QID PRN PRN Reason: Pain Ubidecarenone [Coenzyme Q10] 200 mg PO DAILY L.acidoph,Paracasei, B.lactis [Probiotic] 1 cap PO DAILY Acetaminophen Tab [Tylenol] 1,000 mg PO QID PRN PRN Reason: Fever And/ Or Pain Pravastatin Sodium [Pravachol] 20 mg PO DAILY Cholecalciferol [Vitamin D3 (25 Mcg = 1000 Iu)] 25 mcg PO DAILY hydroCHLOROthiazide 12.5 mg PO DAILY HYDROcodone/APAP 10-325MG [Hingham 10-325] 1 tab PO QID PRN PRN Reason: Pain Discontinued metFORMIN HCL ER [Glucophage XR] 1,000 mg PO DAILY Discharge Medication List Aspirin EC [Ecotrin Low Dose] 81 mg PO DAILY 09/21/20 [History] Baclofen [Lioresal] 10 mg PO TID PRN 09/21/20 [History] Multivitamins, Thera [Multivitamin (formulary)] 1 tab PO DAILY 09/21/20 [History] Pregabalin [Lyrica] 150 mg PO BID 09/21/20 [History] allopurinoL [Zyloprim] 100 mg PO DAILY 09/21/20 [History] Acetaminophen Tab [Tylenol] 1,000 mg PO QID PRN 11/04/22 [History] Cholecalciferol [Vitamin D3 (25 Mcg = 1000 Iu)] 25 mcg PO DAILY 11/04/22 [History] Diclofenac Sodium Gel [Voltaren Gel] 1 applic TOPICAL QID PRN 11/04/22 [History] Famotidine 20 - 40 mg PO DAILY 11/04/22 [History] HYDROcodone/APAP 10-325MG [Hingham 10-325] 1 tab PO QID PRN 11/04/22 [History] L.acidoph,Paracasei, B.lactis [Probiotic] 1 cap PO DAILY 11/04/22 [History] Losartan Potassium [Cozaar] 100 mg PO DAILY 11/04/22 [History] Omeprazole [PriLOSEC] 20 mg PO DAILY 11/04/22 [History] Pravastatin Sodium [Pravachol] 20 mg PO DAILY 11/04/22 [History] Ubidecarenone [Coenzyme Q10] 200 mg PO DAILY 11/04/22 [History] Verapamil HCl [Verapamil ER] 120 mg PO DAILY 11/04/22 [History] Vitamin B Complex 1 cap PO DAILY 11/04/22 [History] hydroCHLOROthiazide 12.5 mg PO DAILY 11/04/22 [History] cefUROXime axetiL [Ceftin] 500 mg PO BID 5 Days #10 tab 11/08/22 [Rx] metFORMIN HCL [Glucophage] 500 mg PO BID-W/MEALS #60 tab 11/08/22 [Rx] Follow up Appointment(s)/Referral(s): Nonstaff,Physician [REFERRING] - 1-2 days
[2022-11-08 17:19] LABS: Glucose,Whole Blood 144 mg/dL (70-110)
[2022-11-08] MEDS ORDERED: VERAPAMIL SR 120 MG TABLET.ER PO SCH (21:00)
== END 2022-11-08 18:14 | disposition home or self-care (01) | DRG 689 ==
LOC: EC 10:25 → 6NMEDSUR 15:59 → OBSVTOIN 15:59 → 4SSUR 20:50
PROVIDERS: ADMIT Internal Medicine; ATTEND Internal Medicine
DX: N39.0 Urinary tract infection, site not specified (principal); G93.41 Metabolic encephalopathy; M10.00 Idiopathic gout, unspecified site; M17.0 Bilateral primary osteoarthritis of knee; M71.20 Synovial cyst of popliteal space [Baker], unspecified knee; M47.26 Other spondylosis with radiculopathy, lumbar region; M79.7 Fibromyalgia; B96.20 Unspecified Escherichia coli [E. coli] as the cause of diseases classified elsewhere; E11.42 Type 2 diabetes mellitus with diabetic polyneuropathy; E78.5 Hyperlipidemia, unspecified; E86.0 Dehydration; G47.33 Obstructive sleep apnea (adult) (pediatric); I10 Essential (primary) hypertension; K21.9 Gastro-esophageal reflux disease without esophagitis; Z79.84 Long term (current) use of oral hypoglycemic drugs; Z79.82 Long term (current) use of aspirin; Z82.49 Family history of ischemic heart disease and other diseases of the circulatory system; Z79.899 Other long term (current) drug therapy; Z88.1 Allergy status to other antibiotic agents; Z88.0 Allergy status to penicillin
CPT/HCPCS: 36415; 70450; 71046; 72125; 80048; 80053; 81001; 83036; 84484; 85025; 85610; 85730; 87077; 87086; 87186; 93005; 93970

== ENCOUNTER 2022-11-11 00:13 | Inpatient (IN) | payer MEDICARE, OTHER ==
[2022-11-11 00:26] LABS: Glucose,Whole Blood 161 mg/dL (70-110)
[2022-11-11 00:58] LABS: Basophils % (A) 0 %; Eosinophils # (A) 0.1 k/uL (0-0.7); Eosinophils % (A) 1 %; HCT 45.6 % (34.0-46.0); HGB 15.1 gm/dL (11.4-16.0); Lymphocytes # (A) 0.8 k/uL (1.0-4.8); Lymphocytes % (A) 8 %; MCH 30.1 pg (25.0-35.0); MCHC 33.2 g/dL (31.0-37.0); MCV 90.5 fL (80.0-100.0); Mean Platelet Volume 9.3; Monocytes # (A) 0.7 k/uL (0-1.0); Monocytes % (A) 7 %; Neutrophils # (A) 7.5 k/uL (1.3-7.7); Neutrophils % (A) 81 %; Platelet Count 214 k/uL (150-450); RBC 5.03 m/uL (3.80-5.40); WBC 9.2 k/uL (3.8-10.6)
[2022-11-11 01:13] LABS: Calcium 9.7 mg/dL (8.4-10.2); Total Bilirubin 0.9 mg/dL (0.2-1.3)
[2022-11-11 01:26] LABS: Albumin 4.3 g/dL (3.5-5.0); Total Protein 7.2 g/dL (6.3-8.2)
[2022-11-11 01:29] LABS: Lactic Acid, Venous 3.3 mmol/L (0.7-2.0)
[2022-11-11] MEDS ORDERED: SODIUM CHLORIDE 0.9% 1,000 ML IV ONE (01:35)
[2022-11-11] MEDS ORDERED: SODIUM CHLORIDE 0.9% 1,000 ML IV STA (01:36)
--- NOTE | 2022-11-11 01:41 | CT ---
EXAM: CT Head Without Intravenous Contrast CLINICAL HISTORY: ITS. REASON CT Reason: Altered mental status TECHNIQUE: Axial computed tomography images of the head/brain without intravenous contrast. CTDI is 47.2 mGy and DLP is 1126.4 mGy-cm. This CT exam was performed using one or more of the following dose reduction techniques: automated exposure control, adjustment of the mA and/or kV according to patient size, and/or use of iterative reconstruction technique. COMPARISON: None. FINDINGS: Brain: No edema or acute infarct. No acute hemorrhage. Mild atrophy and chronic white matter disease. Ventricles: No hydrocephalus or midline shift. Bones/joints: No skull fracture. Soft tissues: No scalp hematoma. Sinuses: Chronic left maxillary sinusitis, otherwise, clear. Mastoid air cells: No mastoid effusion. IMPRESSION: 1. Mild age-related findings. 2. No acute infarct, bleed, or acute intracranial abnormality.
[2022-11-11 01:44] LABS: INR 1.1 (<1.2); Prothrombin Time 11.4 sec (9.0-12.0)
[2022-11-11 01:52] LABS: Partial Thromboplastin Time 21.7 sec (22.0-30.0)
--- NOTE | 2022-11-11 02:22 | XR ---
EXAM: XR Chest, 1 View CLINICAL HISTORY: ITS.REASON XR Reason: altered mental status TECHNIQUE: Frontal view of the chest. Moderate low lung volumes. COMPARISON: Chest x-ray 11/04/22. FINDINGS: Lungs: Mild progressive perihilar and basilar atelectasis or infiltrate, limited evaluation due to low lung volumes. Cannot rule out pneumonia or CHF. No consolidation. Pleural space: Possible small pleural effusions. No pneumothorax. Heart: Stable cardiomegaly. Mediastinum: Unremarkable. Bones/Soft Tissues: No acute abnormality. IMPRESSION: 1. Limited evaluation due to low lung volumes, cannot rule out progressive basilar infiltrates and effusions, nonspecific, cannot rule out pneumonia.
[2022-11-11] MEDS ORDERED: LORazepam 2 MG/ML INJ IV STA (02:23)
[2022-11-11 02:48] LABS: Appearance,Urine Clear (Clear); Bilirubin,Urine Negative (Negative); Blood,Urine Trace (Negative); Color,Urine Yellow; Glucose,Urine (UA) Negative (Negative); Hyaline Casts,Urine 8 /lpf (0-2); Ketones,Urine 1+ (Negative); Leukocyte Esterase,Urine Negative (Negative); Mucus,Urine Few /hpf; Nitrite,Urine Negative (Negative); PH, Urine 6.5 (5.0-8.0); Protein,Urine Trace (Negative); RBC,Urine 11 /hpf (0-5); Specific Gravity,Urine 1.018 (1.001-1.035); Squamous Epithelial Cell,Urine 1 /hpf (0-4); Urobilinogen,Urine <2.0 mg/dL (<2.0); WBC,Urine 3 /hpf (0-5)
[2022-11-11] MEDS ORDERED: AZITHROMYCIN 500 MG in SODIUM CHLORIDE 0.9% 250 ML IVPB STA (03:15)
[2022-11-11] MEDS ORDERED: PIPERACILLIN-TAZOBACTAM 3.375 GM in SODIUM CHLORIDE 0.9% 100 ML IVPB STA (03:15)
[2022-11-11] MEDS ORDERED: PNEUMONIA PROTOCOL UTILIZED 1 EACH MISC PO PRN (04:08)
[2022-11-11] MEDS ORDERED: BACLOFEN 10 MG TAB PO PRN (04:27)
[2022-11-11] MEDS ORDERED: MORPHINE SULFATE 4 MG/ML SYRINGE IV STA (04:28)
--- NOTE | 2022-11-11 07:43 | ED ---
Altered Mental Status HPI - General Chief Complaint: Altered Mental Status Stated Complaint: Altered Mental Time Seen by Provider: 11/11/22 00:15 Source: patient, EMS Mode of arrival: EMS Limitations: altered mental status - History of Present Illness Initial Comments: This patient is an 82-year-old woman who is brought by ambulance to have evaluation. The patient is in an assisted living and was found disoriented, confused and wandering the halls of the assisted living without clothing on. She reportedly told EMS that she had been looking for her cat. When I interview the patient she does not recall episode. She is denying pain, dyspnea, vomiting and diarrhea. MD Complaint: altered mental status, confusion -: unknown Severity: moderate Consistency of Symptoms: constant Context: history of similar presentation Associated Symptoms: denies other symptoms - Related Data Home Medications Medication Instructions Recorded Confirmed Baclofen [Lioresal] 10 mg PO TID PRN 09/21/20 11/11/22 Multivitamins, Thera [Multivitamin 1 tab PO DAILY 09/21/20 11/11/22 (formulary)] allopurinoL [Zyloprim] 100 mg PO DAILY 09/21/20 11/11/22 Acetaminophen Tab [Tylenol] 1,000 mg PO QID PRN 11/04/22 11/11/22 Cholecalciferol [Vitamin D3 (25 25 mcg PO DAILY 11/04/22 11/11/22 Mcg = 1000 Iu)] Diclofenac Sodium Gel [Voltaren 1 applic TOPICAL QID PRN 11/04/22 11/11/22 Gel] Famotidine 20 - 40 mg PO DAILY 11/04/22 11/11/22 L.acidoph,Paracasei, B.lactis 1 cap PO DAILY 11/04/22 11/11/22 [Probiotic] Losartan Potassium [Cozaar] 100 mg PO DAILY 11/04/22 11/11/22 Omeprazole [PriLOSEC] 20 mg PO DAILY 11/04/22 11/11/22 Ubidecarenone [Coenzyme Q10] 200 mg PO DAILY 11/04/22 11/11/22 Verapamil HCl [Verapamil ER] 120 mg PO DAILY 11/04/22 11/11/22 Vitamin B Complex 1 cap PO DAILY 11/04/22 11/11/22 hydroCHLOROthiazide 12.5 mg PO DAILY 11/04/22 11/11/22 Previous Rx's Medication Instructions Recorded metFORMIN HCL [Glucophage] 500 mg PO BID-W/MEALS #60 tab 11/08/22 Apixaban [Eliquis] 5 mg PO BID #60 tab 11/13/22 Atorvastatin [Lipitor] 40 mg PO HS #30 tablet 11/13/22 Dapagliflozin Propanediol [Farxiga] 5 mg PO DAILY #30 tab 11/13/22 HYDROcodone/APAP 10-325MG [[place] 1 tab PO QID PRN #12 tab 11/13/22 10-325] Pregabalin [Lyrica] 150 mg PO BID #6 cap 11/13/22 Semaglutide [Ozempic] 0.25 mg SQ WEEKLY #1 each 11/13/22 Allergies Allergy/AdvReac Type Severity Reaction Status Date / Time cephalexin [From Keflex] Allergy Rash/Hives Verified 11/11/22 06:54 clindamycin Allergy Rash/Hives Verified 11/11/22 06:54 Penicillins Allergy Unknown Verified 11/11/22 06:54 oxybutynin [From Ditropan] AdvReac Hallucinati Verified 11/11/22 06:54 ons Review of Systems ROS Statement: Those systems with pertinent positive or pertinent negative responses have been documented in the HPI. ROS Other: All systems not noted in ROS Statement are negative. Limitations: ROS unobtainable due to patients medical condition Respiratory: Denies: cough, dyspnea Cardiovascular: Denies: chest pain Gastrointestinal: Denies: abdominal pain, vomiting, diarrhea Neurological: Denies: headache Past Medical History Past Medical History: Hypertension Additional Past Medical History / Comment(s): UTI, fibromylagia, respiroaty failure History of Any Multi-Drug Resistant Organisms: None Reported Past Surgical History: Back Surgery Additional Past Surgical History / Comment(s): 5 back surgery since 2014. Past Anesthesia/Blood Transfusion Reactions: No Reported Reaction Past Psychological History: No Psychological Hx Reported Smoking Status: Never smoker Past Alcohol Use History: None Reported Past Drug Use History: None Reported General Exam Limitations: altered mental status General appearance: alert Head exam: Present: atraumatic, normocephalic Eye exam: Present: normal appearance, PERRL, EOMI. Absent: scleral icterus, conjunctival injection ENT exam: Present: mucous membranes dry Neck exam: Present: normal inspection, full ROM. Absent: meningismus Respiratory exam: Present: normal lung sounds bilaterally. Absent: respiratory distress, wheezes, rales, rhonchi, stridor Cardiovascular Exam: Present: normal rhythm, tachycardia, normal heart sounds. Absent: systolic murmur, diastolic murmur, rubs, gallop GI/Abdominal exam: Present: soft. Absent: distended, tenderness, guarding, rebound, rigid, mass, pulsatile mass Extremities exam: Present: normal inspection, normal capillary refill. Absent: pedal edema, calf tenderness Neurological exam: Present: alert, CN II-XII intact. Absent: oriented X3, motor sensory deficit Skin exam: Present: warm, dry, intact, normal color. Absent: rash Course Vital Signs 11/11/22 11/11/22 11/11/22 00:19 02:13 02:41 Temperature 98.2 F Pulse Rate 111 H 90 92 Respiratory 20 20 20 Rate Blood Pressure 115/86 173/100 172/91 O2 Sat by Pulse 98 96 96 Oximetry 11/11/22 11/11/22 03:04 04:51 Temperature Pulse Rate 93 95 Respiratory 16 14 Rate Blood Pressure 165/102 165/87 O2 Sat by Pulse 93 L 94 L Oximetry Medical Decision Making - Medical Decision Making This patient is an 82-year-old woman brought from her residence to have evaluation of altered mental status. She appears to have moderately severe underlying dementia versus acute delirium. The patient's exam and workup do show probably a mild degree of dehydration and lactic acidosis. There is chest x-ray which I interpreted as showing possible infiltrate, and patient is started on antibiotic here. The patient also had CT of the brain which I interpreted as not showing any acute bony trauma and no intracranial hemorrhage. Was pt. sent in by a medical professional or institution (, PA, INDUSTRIAL PSYCHOLOGY TEACHER, urgent care, hospital, or jail...) When possible be specific @ -[Sent from her assisted living Did you speak to anyone other than the patient for history (EMS, parent, family, police, friend...)? What history was obtained from this source @ -[EMS personnel Did you review nursing and triage notes (agree or disagree)? Why? @ -[I reviewed and agree with nursing and triage notes] Were old charts reviewed (outside hosp., previous admission, EMS record, old EKG, old radiological studies, urgent care reports/EKG's, jail records)? Report findings @ -[No old charts were reviewed] Differential Diagnosis (chest pain, altered mental status, abdominal pain women, abdominal pain men, vaginal bleeding, weakness, fever, dyspnea, syncope, headac he, dizziness, GI bleed, back pain, seizure, CVA, palpatations, mental health, musculoskeletal)? @ -[Differential Altered Mental Status: Hypoglycemia, DKA, hypercapnia, ETOH, overdose, CO poisoning, trauma, myxedema coma, HTN encephalopathy, infection, encephalitis, psychosis, intercranial hemorrhage, hepatic encephalopathy, meningitis, CVA, this is not meant to be an all-inclusive list EKG interpreted by me (3pts min.). @ -[As above] X-rays interpreted by me (1pt min.). @ -[As above CT interpreted by me (1pt min.). @ -[As above U/S interpreted by me (1pt. min.). @ -[None done] What testing was considered but not performed or refused? (CT, X-rays, U/S, labs)? Why? @ -[None] What meds were considered but not given or refused? Why? @ -[None] Did you discuss the management of the patient with other professionals (professionals i.e. , PA, INDUSTRIAL PSYCHOLOGY TEACHER, lab, RT, psych nurse, social media assistant, retail service technician, teacher, planned giving officer, trimming caser)? Give summary @ -[Admitting physician Was smoking cessation discussed for >3mins.? @ -[No] Was critical care preformed (if so, how long)? @ -[No] Were there social determinants of health that impacted care today? How? (Homelessness, low income, unemployed, alcoholism, drug addiction, transportation, low edu. Level, literacy, decrease access to med. care, longterm, rehab)? @ -[No] Was there de-escalation of care discussed even if they declined (Discuss DNR or withdrawal of care, Hospice)? DNR status @ -[No] What co-morbidities impacted this encounter? (DM, HTN, Smoking, COPD, CAD, Cancer, CVA, ARF, Chemo, Hep., AIDS, mental health diagnosis, sleep apnea, morbid obesity)? @ -[None] Was patient admitted / discharged? Hospital course, mention meds given and route, prescriptions, significant lab abnormalities, going to OR and other pertinent info. @ -[Admitted Undiagnosed new problem with uncertain prognosis? @ -[No] Drug Therapy requiring intensive monitoring for toxicity (Heparin, Nitro, Insulin, Cardizem)? @ -[No] Were any procedures done? @ -[No] Diagnosis/symptom? @ -[1. Acute pneumonia 2. Lactic acidosis, acute 3. Acute delirium Acute, or Chronic, or Acute on Chronic? @ -[default] Uncomplicated (without systemic symptoms) or Complicated (systemic symptoms)? @ -Uncomplicated Side effects of treatment? @ -[No] Exacerbation, Progression, or Severe Exacerbation? @ -[No] Poses a threat to life or bodily function? How? (Chest pain, [place], PR, pneumonia, PE, COPD, DKA, ARF, appy, cholecystitis, CVA, Diverticulitis, Homicidal, Suicidal, threat to staff... and all critical care pts) @ -[No] - Lab Data Result diagrams: 11/11/22 00:29 11/11/22 00:29 Lab Results 11/11/22 11/11/22 11/11/22 Range/Units 00:25 00:29 00:29 WBC 9.2 (3.8-10.6) k/uL RBC 5.03 (3.80-5.40) m/uL Hgb 15.1 (11.4-16.0) gm/dL Hct 45.6 (34.0-46.0) % MCV 90.5 (80.0-100.0) fL MCH 30.1 (25.0-35.0) pg MCHC 33.2 (31.0-37.0) g/dL RDW 15.0 (11.5-15.5) % Plt Count 214 (150-450) k/uL MPV 9.3 Neutrophils % 81 % Lymphocytes % 8 % Monocytes % 7 % Eosinophils % 1 % Basophils % 0 % Neutrophils # 7.5 (1.3-7.7) k/uL Lymphocytes # 0.8 L (1.0-4.8) k/uL Monocytes # 0.7 (0-1.0) k/uL Eosinophils # 0.1 (0-0.7) k/uL Basophils # 0.0 (0-0.2) k/uL PT 11.4 (9.0-12.0) sec INR 1.1 (<1.2) APTT 21.7 L (22.0-30.0) sec Sodium (137-145) mmol/L Potassium (3.5-5.1) mmol/L Chloride (98-107) mmol/L Carbon Dioxide (22-30) mmol/L Anion Gap mmol/L BUN (7-17) mg/dL Creatinine (0.52-1.04) mg/dL Est GFR (CKD-EPI)AfAm (>60 ml/min/1.73 sqM) Est GFR (CKD-EPI)NonAf (>60 ml/min/1.73 sqM) Glucose (74-99) mg/dL POC Glucose (mg/dL) 161 H (70-110) mg/dL POC Glu Production Potter ID BryannajoyceAyde gamble Lactic Ac Sepsis Rflx Plasma Lactic Acid [place] (0.7-2.0) mmol/L Calcium (8.4-10.2) mg/dL Total Bilirubin (0.2-1.3) mg/dL AST (14-36) U/L ALT (4-34) U/L Alkaline Phosphatase (38-126) U/L Ammonia (<30) umol/L Troponin I (0.000-0.034) ng/mL Total Protein (6.3-8.2) g/dL Albumin (3.5-5.0) g/dL Procalcitonin (0.02-0.09) ng/mL Urine Color Urine Appearance (Clear) Urine pH (5.0-8.0) Ur Specific [place] (1.001-1.035) Urine Protein (Negative) Urine Glucose (UA) (Negative) Urine Ketones (Negative) Urine Blood (Negative) Urine Nitrite (Negative) Urine Bilirubin (Negative) Urine Urobilinogen (<2.0) mg/dL Ur Leukocyte Esterase (Negative) Urine RBC (0-5) /hpf Urine WBC (0-5) /hpf Ur Squamous Epith Cells (0-4) /hpf Hyaline Casts (0-2) /lpf Urine Mucus (None) /hpf 11/11/22 11/11/22 11/11/22 Range/Units 00:29 00:29 00:29 WBC (3.8-10.6) k/uL RBC (3.80-5.40) m/uL Hgb (11.4-16.0) gm/dL Hct (34.0-46.0) % MCV (80.0-100.0) fL MCH (25.0-35.0) pg MCHC (31.0-37.0) g/dL RDW (11.5-15.5) % Plt Count (150-450) k/uL MPV Neutrophils % % Lymphocytes % % Monocytes % % Eosinophils % % Basophils % % Neutrophils # (1.3-7.7) k/uL Lymphocytes # (1.0-4.8) k/uL Monocytes # (0-1.0) k/uL Eosinophils # (0-0.7) k/uL Basophils # (0-0.2) k/uL PT (9.0-12.0) sec INR (<1.2) APTT (22.0-30.0) sec Sodium 141 (137-145) mmol/L Potassium 5.0 (3.5-5.1) mmol/L Chloride 106 (98-107) mmol/L Carbon Dioxide 23 (22-30) mmol/L Anion Gap 12 mmol/L BUN 18 H (7-17) mg/dL Creatinine 0.76 (0.52-1.04) mg/dL Est GFR (CKD-EPI)AfAm 86 (>60 ml/min/1.73 sqM) Est GFR (CKD-EPI)NonAf 75 (>60 ml/min/1.73 sqM) Glucose 161 H (74-99) mg/dL POC Glucose (mg/dL) (70-110) mg/dL POC Glu Production Potter ID Lactic Ac Sepsis Rflx Plasma Lactic Acid [place] 3.3 H* (0.7-2.0) mmol/L Calcium 9.7 (8.4-10.2) mg/dL Total Bilirubin 0.9 (0.2-1.3) mg/dL AST 36 (14-36) U/L ALT 24 (4-34) U/L Alkaline Phosphatase 49 (38-126) U/L Ammonia <9 (<30) umol/L Troponin I 0.013 (0.000-0.034) ng/mL Total Protein 7.2 (6.3-8.2) g/dL Albumin 4.3 (3.5-5.0) g/dL Procalcitonin (0.02-0.09) ng/mL Urine Color Urine Appearance (Clear) Urine pH (5.0-8.0) Ur Specific [place] (1.001-1.035) Urine Protein (Negative) Urine Glucose (UA) (Negative) Urine Ketones (Negative) Urine Blood (Negative) Urine Nitrite (Negative) Urine Bilirubin (Negative) Urine Urobilinogen (<2.0) mg/dL Ur Leukocyte Esterase (Negative) Urine RBC (0-5) /hpf Urine WBC (0-5) /hpf Ur Squamous Epith Cells (0-4) /hpf Hyaline Casts (0-2) /lpf Urine Mucus (None) /hpf 11/11/22 11/11/22 11/11/22 Range/Units 01:29 02:38 03:44 WBC (3.8-10.6) k/uL RBC (3.80-5.40) m/uL Hgb (11.4-16.0) gm/dL Hct (34.0-46.0) % MCV (80.0-100.0) fL MCH (25.0-35.0) pg MCHC (31.0-37.0) g/dL RDW (11.5-15.5) % Plt Count (150-450) k/uL MPV Neutrophils % % Lymphocytes % % Monocytes % % Eosinophils % % Basophils % % Neutrophils # (1.3-7.7) k/uL Lymphocytes # (1.0-4.8) k/uL Monocytes # (0-1.0) k/uL Eosinophils # (0-0.7) k/uL Basophils # (0-0.2) k/uL PT (9.0-12.0) sec INR (<1.2) APTT (22.0-30.0) sec Sodium (137-145) mmol/L Potassium (3.5-5.1) mmol/L Chloride (98-107) mmol/L Carbon Dioxide (22-30) mmol/L Anion Gap mmol/L BUN (7-17) mg/dL Creatinine (0.52-1.04) mg/dL Est GFR (CKD-EPI)AfAm (>60 ml/min/1.73 sqM) Est GFR (CKD-EPI)NonAf (>60 ml/min/1.73 sqM) Glucose (74-99) mg/dL POC Glucose (mg/dL) (70-110) mg/dL POC Glu Production Potter ID Lactic Ac Sepsis Rflx Y Plasma Lactic Acid [place] (0.7-2.0) mmol/L Calcium (8.4-10.2) mg/dL Total Bilirubin (0.2-1.3) mg/dL AST (14-36) U/L ALT (4-34) U/L Alkaline Phosphatase (38-126) U/L Ammonia (<30) umol/L Troponin I (0.000-0.034) ng/mL Total Protein (6.3-8.2) g/dL Albumin (3.5-5.0) g/dL Procalcitonin 0.05 (0.02-0.09) ng/mL Urine Color Yellow Urine Appearance Clear (Clear) Urine pH 6.5 (5.0-8.0) Ur Specific [place] 1.018 (1.001-1.035) Urine Protein Trace H (Negative) Urine Glucose (UA) Negative (Negative) Urine Ketones 1+ H (Negative) Urine Blood Trace H (Negative) Urine Nitrite Negative (Negative) Urine Bilirubin Negative (Negative) Urine Urobilinogen <2.0 (<2.0) mg/dL Ur Leukocyte Esterase Negative (Negative) Urine RBC 11 H (0-5) /hpf Urine WBC 3 (0-5) /hpf Ur Squamous Epith Cells 1 (0-4) /hpf Hyaline Casts 8 H (0-2) /lpf Urine Mucus Few H (None) /hpf 11/11/22 Range/Units 03:44 WBC (3.8-10.6) k/uL RBC (3.80-5.40) m/uL Hgb (11.4-16.0) gm/dL Hct (34.0-46.0) % MCV (80.0-100.0) fL MCH (25.0-35.0) pg MCHC (31.0-37.0) g/dL RDW (11.5-15.5) % Plt Count (150-450) k/uL MPV Neutrophils % % Lymphocytes % % Monocytes % % Eosinophils % % Basophils % % Neutrophils # (1.3-7.7) k/uL Lymphocytes # (1.0-4.8) k/uL Monocytes # (0-1.0) k/uL Eosinophils # (0-0.7) k/uL Basophils # (0-0.2) k/uL PT (9.0-12.0) sec INR (<1.2) APTT (22.0-30.0) sec Sodium (137-145) mmol/L Potassium (3.5-5.1) mmol/L Chloride (98-107) mmol/L Carbon Dioxide (22-30) mmol/L Anion Gap mmol/L BUN (7-17) mg/dL Creatinine (0.52-1.04) mg/dL Est GFR (CKD-EPI)AfAm (>60 ml/min/1.73 sqM) Est GFR (CKD-EPI)NonAf (>60 ml/min/1.73 sqM) Glucose (74-99) mg/dL POC Glucose (mg/dL) (70-110) mg/dL POC Glu Production [place] ID Lactic Ac Sepsis Rflx Plasma Lactic Acid [place] 1.6 (0.7-2.0) mmol/L Calcium (8.4-10.2) mg/dL Total Bilirubin (0.2-1.3) mg/dL AST (14-36) U/L ALT (4-34) U/L Alkaline Phosphatase (38-126) U/L Ammonia (<30) umol/L Troponin I (0.000-0.034) ng/mL Total Protein (6.3-8.2) g/dL Albumin (3.5-5.0) g/dL Procalcitonin (0.02-0.09) ng/mL Urine Color Urine Appearance (Clear) Urine pH (5.0-8.0) Ur Specific [place] (1.001-1.035) Urine Protein (Negative) Urine Glucose (UA) (Negative) Urine Ketones (Negative) Urine Blood (Negative) Urine Nitrite (Negative) Urine Bilirubin (Negative) Urine Urobilinogen (<2.0) mg/dL Ur Leukocyte Esterase (Negative) Urine RBC (0-5) /hpf Urine WBC (0-5) /hpf Ur Squamous Epith Cells (0-4) /hpf Hyaline Casts (0-2) /lpf Urine Mucus (None) /hpf Disposition Clinical Impression: Delirium due to general medical condition, Lactic acidosis, Pneumonia Disposition: ADMITTED IP TO THIS HOSP Condition: Stable Is patient prescribed a controlled substance at d/c from ED?: No
[2022-11-11 08:08] LABS: Glucose,Whole Blood 127 mg/dL (70-110)
[2022-11-11] MEDS ORDERED: ASPIRIN 81 MG PO STA (09:44)
[2022-11-11] MEDS ORDERED: ACETAMINOPHEN TAB 500 MG TAB PO PRN (10:11)
--- NOTE | 2022-11-11 10:11 | P.CNNES ---
History of Present Illness Consult date: 11/11/22 Requesting physician: Yokasta Haider Reason for Consult: Mental status change History of Present Illness: Patient is a 82-year-old right-handed female with history of hypertension, diabetes, history of back stimulator placement, recent UTI, came to the hospital by ambulance early this morning at 12:13 AM for altered mental status. Patient does not know details for the reason she came to the hospital. Patient's daug hter was present, who provided some history. Patient at present lives in [facility]. She walks with a walker but her gait has got worse over time, now she walks with a hunchback. Patient was recently admitted to the hospital from Friday through Friday for acute UTI related to E. coli. Patient's daughter states that her blood pressure medication was adjusted, and patient was discharged on antibiotics. Last night patient was not feeling well. She was most confused, disoriented and later she was found on the floor in the hallway, half naked, yelling name of 2 ladies that lives in the same lodge. She was asking for her cats where they are and she was very fidgety, and has thrown thi ngs in the hallway. Patient's daughter mentions that in the ER she was not able to answer questions, as she otherwise is fairly sharp. She was taking off her blood pressure cuff legs were constantly moving, fidgety, asking for her daughter "over and over and over". She would repeatedly say "Sadaf please!" and then stops. Patient's daughter has not noticed any facial droop, slurred speech although she is noticing some blank stare frequently. No obvious focal weakness, no headaches. As per EMS flow sheet, when arrived at the scene, patient was sitting on the ground in hallway, and the staff mentioned that patient has been found in the hallway naked. Patient was alert, confused, combative upon arrival. Staff mentioned that patient is typically alert and oriented 4. Patient answers questions nonsensically, word salad. Staff did not know when patient was last seen normal. Patient had abrasions to the forehead, and resumed to have fallen. Stroke scale was negative. EKG showed atrial fibrillation. Patient's blood pressure was 186/141, pulse rate 114, respirations 16, saturation 95%. Blood sugar 207. Vital signs on arrival blood pressure 115/86, which went up to 173/100 and pulse rate 111 and temperature 98.2. Blood test shows normal CBC PT/PTT, normal Chem- 7, lactate was 3.3, hepatic panel normal, ammonia normal, troponin negative. UA is negative. CT head revealed mild age-related findings. No acute infarct, bleed or acute intracranial abnormality. I personally reviewed current computed tomography scan of the head and the CT head from 11/04/2022. There is presence of a subacute ischemic stroke involving the right caudate head in the current study, which was not present in the CT from 11/04/2022. Chest x-ray was limited evaluation due to low lung volumes, cannot rule out progressive basilar infiltrates and effusions, nonspecific, cannot rule out pneumonia. EKG revealed electronic atrial pacemaker. Electronic ventricular pacemaker. Patient has history of restless leg syndrome and fibromyalgia for last 15 years, for which she is on Lyrica. No history of tobacco or alcohol use. She does have diabetes on medication. She does not have any pacemaker although EKG shows "electronic atrial pacemaker". Patient has history of pain stimulator placed in the lower back 6 or 7 years ago. No history of seizures. Patient has history of a possible ischemic stroke 3-4 years ago. Home medications include pregabalin 150 mg twice a day, baclofen 10 mg 3 times a day, multivitamin, aspirin 81 mg, Pepcid, verapamil 120 mg, omeprazole, losartan 100 mg, vitamin B complex, coenzyme Q 10, Pravachol 20 mg, vitamin D, HCTZ 12.5 mg, [place], metformin. Patient not on any anticoagulants. Patient used to live with [facility], until she moved with her daughter in [place] in May 2022. She currently lives in [facility]. Review of Systems Constitutional: Denies chills, Denies fever Eyes: bilateral blurred vision (Cataracts), denies diplopia, denies pain Ears: deny: decreased hearing, ear discharge, earache Ears, nose, mouth and throat: Denies headache, Denies sore throat Cardiovascular: Denies chest pain, Denies shortness of breath Respiratory: Denies cough, Denies excessive sputum Gastrointestinal: Denies abdominal pain, Denies diarrhea, Denies nausea, Denies vomiting Genitourinary: Reports urge incontinence, Denies dysuria, Denies hematuria Musculoskeletal: Reports low back pain, Reports myalgias Integumentary: Denies pruritus, Denies rash Neurological: Reports as per HPI Psychiatric: Denies anxiety, Denies depression Endocrine: Reports fatigue, Denies weight change Hematologic/Lymphatic: Reports easy bruising, Denies easy bleeding Past Medical History Past Medical History: Hypertension Additional Past Medical History / Comment(s): UTI, fibromylagia, respiroaty failure History of Any Multi-Drug Resistant Organisms: None Reported Past Surgical History: Back Surgery Additional Past Surgical History / Comment(s): 5 back surgery since 2014. Past Anesthesia/Blood Transfusion Reactions: No Reported Reaction Smoking Status: Never smoker Medications and Allergies Home Medications Medication Instructions Recorded Confirmed Type Aspirin EC [Ecotrin Low Dose] 81 mg PO DAILY 09/21/20 11/11/22 History Baclofen [Lioresal] 10 mg PO TID PRN 09/21/20 11/11/22 History Multivitamins, Thera [Multivitamin 1 tab PO DAILY 09/21/20 11/11/22 History (formulary)] Pregabalin [Lyrica] 150 mg PO BID 09/21/20 11/11/22 History allopurinoL [Zyloprim] 100 mg PO DAILY 09/21/20 11/11/22 History Acetaminophen Tab [Tylenol] 1,000 mg PO QID PRN 11/04/22 11/11/22 History Cholecalciferol [Vitamin D3 (25 25 mcg PO DAILY 11/04/22 11/11/22 History Mcg = 1000 Iu)] Diclofenac Sodium Gel [Voltaren 1 applic TOPICAL QID PRN 11/04/22 11/11/22 History Gel] Famotidine 20 - 40 mg PO DAILY 11/04/22 11/11/22 History HYDROcodone/APAP 10-325MG [[place] 1 tab PO QID PRN 11/04/22 11/11/22 History 10-325] L.acidoph,Paracasei, B.lactis 1 cap PO DAILY 11/04/22 11/11/22 History [Probiotic] Losartan Potassium [Cozaar] 100 mg PO DAILY 11/04/22 11/11/22 History Omeprazole [PriLOSEC] 20 mg PO DAILY 11/04/22 11/11/22 History Pravastatin Sodium [Pravachol] 20 mg PO DAILY 11/04/22 11/11/22 History Ubidecarenone [Coenzyme Q10] 200 mg PO DAILY 11/04/22 11/11/22 History Verapamil HCl [Verapamil ER] 120 mg PO DAILY 11/04/22 11/11/22 History Vitamin B Complex 1 cap PO DAILY 11/04/22 11/11/22 History hydroCHLOROthiazide 12.5 mg PO DAILY 11/04/22 11/11/22 History metFORMIN HCL [Glucophage] 500 mg PO BID-W/MEALS #60 tab 11/08/22 11/11/22 Rx Allergies Allergy/AdvReac Type Severity Reaction Status Date / Time cephalexin [From Keflex] Allergy Rash/Hives Verified 11/11/22 06:54 clindamycin Allergy Rash/Hives Verified 11/11/22 06:54 Penicillins Allergy Unknown Verified 11/11/22 06:54 oxybutynin [From Ditropan] AdvReac Hallucinati Verified 11/11/22 06:54 ons Physical Examination - Vital Signs Vital Signs: Vital Signs Temp Pulse Pulse Resp BP BP Pulse Ox 11/11/22 08:10 97.7 F 79 18 179/96 98 11/11/22 04:51 95 14 165/87 94 L 11/11/22 03:04 93 16 165/102 93 L 11/11/22 02:41 92 20 172/91 96 11/11/22 02:13 90 20 173/100 96 11/11/22 00:19 98.2 F 111 H 20 115/86 98 Intake and Output 11/10/22 11/11/22 11/11/22 22:59 06:59 14:59 Other: Weight 86.636 kg 86.636 kg Patient is an elderly female, laying comfortably in the bed, appears somewhat restless, jittery, moving her legs frequently. Patient is alert awake, very slow mentation, prolonged latency time to answer any questions. She often perseverates. She knows her name, her date of and did multiple prompts, was able to tell that she lives in [place] and that she is in [place], but could not tell the state or the county. In the ER she was not able to tell the current president, but now she is able to tell it is Mr. Hussein. Patient can name objects like pen, glasses, earlobe but with repeated instructions and with prolonged latency and sometimes perseverates. She can repeat very well. Patient has some expressive aphasia, with paraphasic errors noticed. No dysarthria. Attention, concentration and fund of knowledge is limited. On cranial nerve examination, pupils are equal, round and reacting to light, visual schroeder reveal very inconsistent response. She was able to see in all 4 quadrants, but often would miss right or the left for double simultaneous stimulation. Uncertain if these neglect, but it was not consistent on any one side. It is partly related to her poor concentration and attention span. Extraocular muscles are intact with no nystagmus. Face is symmetric, tongue protrudes to the midline. Palatal elevation and sensation normal, hearing appears slightly decreased and shoulder shrug normal, facial sensation normal. On muscle strength testing, there is no pronator drift and the strength is normal in arms and legs distally and proximally, except right shoulder which is weak with some pain. Hip flexion is about 4 bilaterally, ankle dorsiflexion normal. Deep tendon reflexes are symmetric 2 at the biceps, 2 brachioradialis, 1 at the knees, plantars are withdrawal bilaterally. Sensory to touch is equal. Patient did not cooperate for checking for neglect. Cerebellar function showed no ataxia for [id number] testing. Tone and bulk of muscles normal. patient has some resting tremors of the lower extremities which at times appears more restless legs. Gait deferred.. On general examination, there is no carotid bruit or murmur, S1-S2 audible. Chest is clear on consultation. Abdomen is soft nontender. No organomegaly, bowel sounds present. Peripheral pulses are present. No edema. Results - Laboratory Findings CBC and BMP: 11/11/22 00:29 11/11/22 00:29 Abnormal Lab Findings: Abnormal Labs 11/11/22 11/11/22 11/11/22 00:25 00:29 00:29 Lymphocytes # 0.8 L APTT 21.7 L BUN Glucose POC Glucose (mg/dL) 161 H Plasma Lactic Acid [place] Urine Protein Urine Ketones Urine Blood Urine RBC Hyaline Casts Urine Mucus 11/11/22 11/11/22 11/11/22 00:29 00:29 02:38 Lymphocytes # APTT BUN 18 H Glucose 161 H POC Glucose (mg/dL) Plasma Lactic Acid [place] 3.3 H* Urine Protein Trace H Urine Ketones 1+ H Urine Blood Trace H Urine RBC 11 H Hyaline Casts 8 H Urine Mucus Few H 11/11/22 08:06 Lymphocytes # APTT BUN Glucose POC Glucose (mg/dL) 127 H Plasma Lactic Acid [place] Urine Protein Urine Ketones Urine Blood Urine RBC Hyaline Casts Urine Mucus Assessment and Plan Assessment: * Probable subacute ischemic stroke. CT head revealed subacute ischemic stroke involving right caudate head, which was not present in the computed tomography scan of head from 11/04/2022. * New onset atrial fibrillation * Hypertension * Diabetes * Hyperlipidemia * Obesity * Recently treated for UTI * History of back simulator placement Plan: * MRI of the brain cannot be performed because patient has a back stimulator. * 2-D echo with bubble study to rule out PFO * Carotid Doppler, rule out stenosis * Fasting a.m. lipid panel with cholesterol 213, LDL 108, HDL 67 triglycerides 188. Start Lipitor 40 mg daily. * Hemoglobin A1c 7.1. Recommend optimize control of diabetes to target A1c <7.0 * Patient has developed new onset atrial fibrillation. With her recent CVA, we will consult cardiology. Patient may be a candidate for long-term anticoagulation. We will continue aspirin 325 mg for now pending cardiology consultation. * Permissive hypertension for next 24-48 hours * Close neuro checks every 4 hours. * Telemetry monitoring rule out any arrhythmia * PT, OT, speech therapy * EEG to rule out any epileptiform activity. * DVT prophylaxis: Heparin 5000 units subcu every 8 hours * Neurology will continue ot follow. Thank you for the consult.
[2022-11-11] MEDS ORDERED: hydroCHLOROthiazide 12.5 MG CAP PO SCH (10:15)
--- NOTE | 2022-11-11 10:38 | US ---
EXAMINATION TYPE: US carotid duplex BILAT DATE OF EXAM: 11/11/2022 COMPARISON: CT brain CLINICAL HISTORY: 82-year-old female CVA per order. TECHNIQUE: Carotid duplex ultrasound examination. Indirect Doppler criteria was utilized. FINDINGS: EXAM MEASUREMENTS: RIGHT: Peak Systolic Velocity (PSV) cm/sec ----- Right CCA: 38.1 ----- Right ICA: 50.2 ----- Right ECA: 35.9 ICA/CCA ratio: 1.3 RIGHT: End Diastole cm/sec ----- Right CCA: 11.8 ----- Right ICA: 15.1 ----- Right ECA: 5.8 LEFT: Peak Systolic Velocity (PSV) cm/sec ----- Left CCA: 38.7 ----- Left ICA: 46.9 ----- Left ECA: 63.1 ICA/CCA ratio: 1.2 LEFT: End Diastole cm/sec ----- Left CCA: 10.2 ----- Left ICA: 15.1 ----- Left ECA: 13.2 VERTEBRALS (direction of flow): Right Vertebral: Antegrade Left Vertebral: Antegrade Rhythm: Arrhythmia AURICULAR DETOXIFICATION SPECIALIST NOTES: Exam is limited due to high and deep bifurcations. Patient talking throughout exam . Tortuous CCA with intimal thickening bilaterally. No elevated velocities at this time. IMPRESSION: No hemodynamically significant internal carotid artery stenosis on either side. Exam limitations as a brendan. Note that the equipment maintenance tech indicates an aberrant cardiac rhythm during the exam. Criteria for Assigning % of Stenosis / Diameter reduction (Estimation based on the indirect measurements of the internal carotid artery velocities (ICA PSV). 1. Normal (no stenosis)=ICA PSV < 125 cm/s: ratio < 2.0: ICA EDV<40 cm/s. 2. Less than 50% stenosis=ICA PSV < 125 cm/s: ratio < 2.0: ICA EDV<40 cm/s. 3. 50 to 69% stenosis=ICA PSV of 125 to 230 cm/s: ration 2.0 ? 4.0: ICA EDV 40-100 cm/s. 4. Greater than 70% stenosis to near occlusion= ICA PSV > 230 cm/s: ratio > 4.0: ICA EDV > 100 cm/s. 5. Near occlusion= ICA PSV velocities may be low or undetectable: variable ratio and ICA EDV. 6. Total occlusion=unable to detect flow.
[2022-11-11] MEDS: VERAPAMIL SR 120 MG TABLET.ER PO SCH (11:08)
[2022-11-11] MEDS: HEPARIN SODIUM,PORCINE/PF 5,000 UNIT/0.5 ML SYRINGE SQ SCH ×2 (11:08→17:53)
[2022-11-11] MEDS: LOSARTAN 50 MG TAB PO SCH (11:08)
[2022-11-11] MEDS: PREGABALIN 75 MG CAP PO SCH ×2 (11:08→20:12)
[2022-11-11 12:18] LABS: Glucose,Whole Blood 130 mg/dL (70-110)
--- NOTE | 2022-11-11 13:42 | P.CRDCN ---
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 We have been asked to see the patient for new onset atrial fibrillation. Patient was recently hospitalized and discharged on Friday due to metabolic encephalopathy secondary to dehydration and UTI. Last night, patient was not feeling well had more confusion and disoriented and she was found on the floor. Patient was then transferred to the emergency center for further evaluation. There was concern for new onset of atrial fibrillation and need for LAUREN due to subacute CVA. With EKG sinus rhythm with PACs, telemetry showing episodes of atrial fibrillation Chest x-ray: Limited evaluation due to low lung volumes, cannot rule out progressive basilar infiltrates and effusions nonspecific, cannot rule out pneumonia. CAT scan of the brain revealed mild age-related findings. No acute infarct, bleed or acute intracranial abnormality. CAT scan was reviewed by neurology and revealed subacute ischemic stroke involving the right caudate head in the current study which was not present on a CAT scan done on 11/04. Carotid ultrasound reveals no hemodynamically significant stenosis Home cardiac medications: Aspirin 81 mg daily, hydrochlorothiazide 12.5 mg daily, losartan 100 mg daily, pravastatin 20 mg daily, verapamil 120 mg daily Review Of Systems: At the time of my evaluation: Constitutional: No fever, no chills. EENT: No headache. No dizziness. Lungs: No shortness of breath, cough, no sputum production. No wheezing. Cardiovascular: No chest pain, no lower extremity edema. No palpitations. No paroxysmal nocturnal dyspnea. No orthopnea. No lightheadedness or dizziness. No syncopal episodes. Abdominal: No abdominal pain. No nausea, vomiting. No diarrhea. No constipation. No bloody or tarry stools. Musculoskeletal: Chronic back pain. Neurologic: Noted change in mentation. Physical examination: Gen: This is an 82-year-old female. She is resting in bed and appears to be comfortable. VS: reviewed HEENT: Head is atraumatic, normocephalic. Pupils equal, round. Sclerae is anicteric. NECK: Supple. No JVD. . LUNGS: Clear to auscultation. No wheezes or rhonchi. No intercostal retractions. HEART: Irregular rate and rhythm. Systolic murmur. ABDOMEN: Soft No tenderness. EXTREMITIES: No pedal edema. No calf tenderness. Assessment: Subacute CVA Paroxysmal atrial fibrillation Hypertension Hyperlipidemia Diabetes mellitus type 2 Plan: Patient will be scheduled for LAUREN tomorrow with Dr. Lashanda Boyd Obtain 2-D echocardiogram and Doppler study with bubble study to assess cardiac structure and function, pfo Will plan to start patient on eliquis following LAUREN tomorrow Plan for event monitor at the time of discharge Further recommendations to follow based upon clinical course Thank you kindly for this consultation. Nurse practitioner note has been reviewed, I agree with documented findings and plan of care. Patient was seen and examined. Past Medical History Past Medical History: Hypertension Additional Past Medical History / Comment(s): UTI, fibromylagia, respiroaty failure History of Any Multi-Drug Resistant Organisms: None Reported Past Surgical History: Back Surgery Additional Past Surgical History / Comment(s): 5 back surgery since 2014. Past Anesthesia/Blood Transfusion Reactions: No Reported Reaction Smoking Status: Never smoker Medications and Allergies Home Medications Medication Instructions Recorded Confirmed Type Aspirin EC [Ecotrin Low Dose] 81 mg PO DAILY 09/21/20 11/11/22 History Baclofen [Lioresal] 10 mg PO TID PRN 09/21/20 11/11/22 History Multivitamins, Thera [Multivitamin 1 tab PO DAILY 09/21/20 11/11/22 History (formulary)] Pregabalin [Lyrica] 150 mg PO BID 09/21/20 11/11/22 History allopurinoL [Zyloprim] 100 mg PO DAILY 09/21/20 11/11/22 History Acetaminophen Tab [Tylenol] 1,000 mg PO QID PRN 11/04/22 11/11/22 History Cholecalciferol [Vitamin D3 (25 25 mcg PO DAILY 11/04/22 11/11/22 History Mcg = 1000 Iu)] Diclofenac Sodium Gel [Voltaren 1 applic TOPICAL QID PRN 11/04/22 11/11/22 History Gel] Famotidine 20 - 40 mg PO DAILY 11/04/22 11/11/22 History HYDROcodone/APAP 10-325MG [[place] 1 tab PO QID PRN 11/04/22 11/11/22 History 10-325] L.acidoph,Paracasei, B.lactis 1 cap PO DAILY 11/04/22 11/11/22 History [Probiotic] Losartan Potassium [Cozaar] 100 mg PO DAILY 11/04/22 11/11/22 History Omeprazole [PriLOSEC] 20 mg PO DAILY 11/04/22 11/11/22 History Pravastatin Sodium [Pravachol] 20 mg PO DAILY 11/04/22 11/11/22 History Ubidecarenone [Coenzyme Q10] 200 mg PO DAILY 11/04/22 11/11/22 History Verapamil HCl [Verapamil ER] 120 mg PO DAILY 11/04/22 11/11/22 History Vitamin B Complex 1 cap PO DAILY 11/04/22 11/11/22 History hydroCHLOROthiazide 12.5 mg PO DAILY 11/04/22 11/11/22 History metFORMIN HCL [Glucophage] 500 mg PO BID-W/MEALS #60 tab 11/08/22 11/11/22 Rx Allergies Allergy/AdvReac Type Severity Reaction Status Date / Time cephalexin [From Keflex] Allergy Rash/Hives Verified 11/11/22 06:54 clindamycin Allergy Rash/Hives Verified 11/11/22 06:54 Penicillins Allergy Unknown Verified 11/11/22 06:54 oxybutynin [From Ditropan] AdvReac Hallucinati Verified 11/11/22 06:54 ons Physical Exam Vitals: Vital Signs Temp Pulse Pulse Resp BP BP Pulse Ox 11/11/22 08:10 97.7 F 79 18 179/96 98 11/11/22 08:00 79 18 11/11/22 04:51 95 14 165/87 94 L 11/11/22 03:04 93 16 165/102 93 L 11/11/22 02:41 92 20 172/91 96 11/11/22 02:13 90 20 173/100 96 11/11/22 00:19 98.2 F 111 H 20 115/86 98 Intake and Output 11/10/22 11/11/22 11/11/22 22:59 06:59 14:59 Other: Voiding Method External Catheter Weight 86.636 kg 86.636 kg Results 11/11/22 00:29 11/11/22 00:29 Cardiac Enzymes 11/11/22 11/11/22 Range/Units 00:29 00:29 AST 36 (14-36) U/L Troponin I 0.013 (0.000-0.034) ng/mL Coagulation 11/11/22 Range/Units 00:29 PT 11.4 (9.0-12.0) sec APTT 21.7 L (22.0-30.0) sec CBC 11/11/22 Range/Units 00:29 WBC 9.2 (3.8-10.6) k/uL RBC 5.03 (3.80-5.40) m/uL Hgb 15.1 (11.4-16.0) gm/dL Hct 45.6 (34.0-46.0) % Plt Count 214 (150-450) k/uL Comprehensive Metabolic Panel 11/11/22 Range/Units 00:29 Sodium 141 (137-145) mmol/L Potassium 5.0 (3.5-5.1) mmol/L Chloride 106 (98-107) mmol/L Carbon Dioxide 23 (22-30) mmol/L BUN 18 H (7-17) mg/dL Creatinine 0.76 (0.52-1.04) mg/dL Glucose 161 H (74-99) mg/dL Calcium 9.7 (8.4-10.2) mg/dL AST 36 (14-36) U/L ALT 24 (4-34) U/L Alkaline Phosphatase 49 (38-126) U/L Total Protein 7.2 (6.3-8.2) g/dL Albumin 4.3 (3.5-5.0) g/dL Current Medications Generic Name Dose Route Start Last Admin Trade Name Freq PRN Reason Stop Dose Admin Acetaminophen 1,000 mg 11/11/22 10:11 Acetaminophen Tab 500 Mg Tab PO QID PRN Fever and/ or Pain Hydrocodone Bitart/Acetaminophen 1 each 11/11/22 04:27 Hydrocodone/Apap 10-325mg 1 Each Tab PO QID PRN Pain Allopurinol 100 mg 11/12/22 09:00 Allopurinol 100 Mg Tab PO DAILY [facility] Atorvastatin Calcium 40 mg 11/11/22 21:00 Atorvastatin 40 Mg Tab PO HS [facility] Baclofen 10 mg 11/11/22 04:27 Baclofen 10 Mg Tab PO TID PRN Muscle Spasm Famotidine 20 mg 11/12/22 09:00 Famotidine 20 Mg Tab PO DAILY JUANITO Heparin Sodium (Porcine) 5,000 unit 11/11/22 10:15 11/11/22 11:08 Heparin Sodium,Porcine/Pf 5,000 Unit/0.5 Ml Syringe SQ 5,000 unit Q8HR JUANITO Administration Losartan Potassium 100 mg 11/11/22 10:15 11/11/22 11:08 Losartan 50 Mg Tab PO 100 mg DAILY JUANITO Administration Miscellaneous Information 1 each 11/11/22 04:08 Pneumonia Protocol Utilized 1 Each Misc PO ONCE PRN Per Protocol Pantoprazole Sodium 40 mg 11/12/22 07:30 Pantoprazole 40 Mg Tablet PO [id number] JUANITO Pregabalin 150 mg 11/11/22 09:00 11/11/22 11:08 Pregabalin 75 Mg Cap PO 150 mg BID JUANITO Administration Verapamil HCl 120 mg 11/11/22 10:15 11/11/22 11:08 Verapamil Sr 120 Mg Tablet.Er PO 120 mg DAILY JUANITO Administration Intake and Output 11/10/22 11/11/22 11/11/22 22:59 06:59 14:59 Other: Voiding Method External Catheter Weight 86.636 kg 86.636 kg Patient Weight 11/12/22 06:59 Weight 86.636 kg 11/11/22 00:29 11/11/22 00:29
--- NOTE | 2022-11-11 14:10 | P.CNPUL ---
History of Present Illness Consult date: 11/11/22 Requesting physician: Olya Austin Reason for consult: abnormal CXR/CT Chief complaint: Altered mental status History of present illness: This is an 82-year-old female patient with a history of hypertension, fibromyalgia, hyperlipidemia, chronic back pain, gastroesophageal reflux disease, gout. She resides at an assisted living facility and last evening she was found wandering the hallways without any clothes on looking for her cat. She was brought into the emergency department for evaluation. Computed tomography scan of the head revealed no acute infarct, bleed or acute intracranial abnormality. Carotid Doppler revealed no hemodynamically significant internal carotid artery stenosis. White count 9.2. Hemoglobin 15.1. Sodium 141. Potassium 5.0. Bicarb 23. BUN 18. Creatinine 0.76. Glucose 161. AST 36. ALT 24. Ammonia level less than 9. Troponin negative. Pro-calcitonin 0.05. Chest x-ray was limited but could not rule out basilar infiltrates/effusions and we are consulted for the same. She is seen today in consultation. She is currently maintaining good O2 saturations in the upper 90s on 2 L/m per nasal cannula. Afebrile. Somewhat hypertensive. EEG is pending. Family is at the bedside and states she remains confused and disoriented compared to her baseline. Review of Systems ROS unobtainable: due to mental status Past Medical History Past Medical History: Hypertension Additional Past Medical History / Comment(s): UTI, fibromylagia, respiroaty fail ure History of Any Multi-Drug Resistant Organisms: None Reported Past Surgical History: Back Surgery Additional Past Surgical History / Comment(s): 5 back surgery since 2014. Past Anesthesia/Blood Transfusion Reactions: No Reported Reaction Smoking Status: Never smoker Medications and Allergies Home Medications Medication Instructions Recorded Confirmed Type Aspirin EC [Ecotrin Low Dose] 81 mg PO DAILY 09/21/20 11/11/22 History Baclofen [Lioresal] 10 mg PO TID PRN 09/21/20 11/11/22 History Multivitamins, Thera [Multivitamin 1 tab PO DAILY 09/21/20 11/11/22 History (formulary)] Pregabalin [Lyrica] 150 mg PO BID 09/21/20 11/11/22 History allopurinoL [Zyloprim] 100 mg PO DAILY 09/21/20 11/11/22 History Acetaminophen Tab [Tylenol] 1,000 mg PO QID PRN 11/04/22 11/11/22 History Cholecalciferol [Vitamin D3 (25 25 mcg PO DAILY 11/04/22 11/11/22 History Mcg = 1000 Iu)] Diclofenac Sodium Gel [Voltaren 1 applic TOPICAL QID PRN 11/04/22 11/11/22 History Gel] Famotidine 20 - 40 mg PO DAILY 11/04/22 11/11/22 History HYDROcodone/APAP 10-325MG [[place] 1 tab PO QID PRN 11/04/22 11/11/22 History 10-325] L.acidoph,Paracasei, B.lactis 1 cap PO DAILY 11/04/22 11/11/22 History [Probiotic] Losartan Potassium [Cozaar] 100 mg PO DAILY 11/04/22 11/11/22 History Omeprazole [PriLOSEC] 20 mg PO DAILY 11/04/22 11/11/22 History Pravastatin Sodium [Pravachol] 20 mg PO DAILY 11/04/22 11/11/22 History Ubidecarenone [Coenzyme Q10] 200 mg PO DAILY 11/04/22 11/11/22 History Verapamil HCl [Verapamil ER] 120 mg PO DAILY 11/04/22 11/11/22 History Vitamin B Complex 1 cap PO DAILY 11/04/22 11/11/22 History hydroCHLOROthiazide 12.5 mg PO DAILY 11/04/22 11/11/22 History metFORMIN HCL [Glucophage] 500 mg PO BID-W/MEALS #60 tab 11/08/22 11/11/22 Rx Allergies Allergy/AdvReac Type Severity Reaction Status Date / Time cephalexin [From Keflex] Allergy Rash/Hives Verified 11/11/22 06:54 clindamycin Allergy Rash/Hives Verified 11/11/22 06:54 Penicillins Allergy Unknown Verified 11/11/22 06:54 oxybutynin [From Ditropan] AdvReac Hallucinati Verified 11/11/22 06:54 ons Physical Exam Vitals: Vital Signs Temp Pulse Pulse Resp BP BP Pulse Ox 11/11/22 08:10 97.7 F 79 18 179/96 98 11/11/22 08:00 79 18 11/11/22 04:51 95 14 165/87 94 L 11/11/22 03:04 93 16 165/102 93 L 11/11/22 02:41 92 20 172/91 96 11/11/22 02:13 90 20 173/100 96 11/11/22 00:19 98.2 F 111 H 20 115/86 98 Intake and Output 11/10/22 11/11/22 11/11/22 22:59 06:59 14:59 Other: Voiding Method External Catheter Weight 86.636 kg 86.636 kg GENERAL EXAM: Alert, confused, 82-year-old female, on 2 L nasal cannula, comfortable in no apparent distress. HEAD: Normocephalic. EYES: Normal reaction of pupils, equal size. NOSE: Clear with pink turbinates. THROAT: No erythema or exudates. NECK: No masses, no JVD. CHEST: No chest wall deformity. LUNGS: Equal air entry with no crackles, wheeze, rhonchi or dullness. CVS: S1 and S2 normal with no audible murmur, regular rhythm. ABDOMEN: No hepatosplenomegaly, normal bowel sounds, no guarding or rigidity. SPINE: No scoliosis or deformity SKIN: No rashes CENTRAL NERVOUS SYSTEM: No focal deficits, tone is normal in all 4 extremities. EXTREMITIES: There is no peripheral edema. No clubbing, no cyanosis. Peripheral pulses are intact. Results - Laboratory Findings CBC and BMP: 11/11/22 00:29 11/11/22 00:29 PT/INR, D-dimer PT 11.4 sec (9.0-12.0) 11/11/22 00:29 INR 1.1 (<1.2) 11/11/22 00:29 Abnormal lab findings: Abnormal Labs 11/11/22 11/11/22 11/11/22 00:25 00:29 00:29 Lymphocytes # 0.8 L APTT 21.7 L BUN Glucose POC Glucose (mg/dL) 161 H Plasma Lactic Acid [place] Urine Protein Urine Ketones Urine Blood Urine RBC Hyaline Casts Urine Mucus 11/11/22 11/11/22 11/11/22 00:29 00:29 02:38 Lymphocytes # APTT BUN 18 H Glucose 161 H POC Glucose (mg/dL) Plasma Lactic Acid [place] 3.3 H* Urine Protein Trace H Urine Ketones 1+ H Urine Blood Trace H Urine RBC 11 H Hyaline Casts 8 H Urine Mucus Few H 11/11/22 11/11/22 08:06 12:17 Lymphocytes # APTT BUN Glucose POC Glucose (mg/dL) 127 H 130 H Plasma Lactic Acid [place] Urine Protein Urine Ketones Urine Blood Urine RBC Hyaline Casts Urine Mucus - Diagnostic Findings Chest x-ray: image reviewed Assessment and Plan Assessment: Altered mental status of unclear etiology possible subacute ischemic stroke New-onset atrial fibrillation Chronic back pain with pain stimulator in place Hypertension History of fibromyalgia Lifelong nonsmoker Plan: The patient was seen and evaluated Chest x-ray, labs, computed tomography scan, medications reviewed Suspect atelectasis at the left base, pro-calcitonin negative Stable from the pulmonary standpoint Titrate the FiO2 as tolerated Heparin for DVT prophylaxis Neurology consult appreciated EEG, LAUREN pending We will continue to follow and make further recommendations based on her clinical status I have personally seen and examined the patient, performed the documentation and the assessment and plan as written. Number of minutes spent on the visit: 20.
[2022-11-11 16:44] LABS: Glucose,Whole Blood 122 mg/dL (70-110)
[2022-11-11] MEDS: ATORVASTATIN 40 MG TAB PO SCH (20:10)
[2022-11-11] MEDS: HYDROcodone/APAP 10-325MG 1 EACH TAB PO PRN (20:10)
[2022-11-11 20:11] LABS: Glucose,Whole Blood 127 mg/dL (70-110)
--- NOTE | 2022-11-11 22:44 | EEG ---
DATE OF SERVICE: 11/11/2022 ELECTROENCEPHALOGRAM REPORT PREAMBLE: This is an 82-year-old female with acute altered mental status, some staring spells, also has possible subacute stroke. EEG FINDINGS: This is a 21-channel digital EEG recorded with video component, utilizing 10/20 international system with referential and bipolar montages. Background consists of poorly developed, and regulated, mixed frequencies of predominantly 4 to 6 hertz theta, intermixed with some delta slowing in bihemispheric region. Background does not seem to be reactive to eye opening or closing. Photic driving response was not seen. Some myogenic activity was seen during the study. No definitive focal or generalized epileptiform activity was seen. Different stages of sleep were not seen. IMPRESSION: This is an abnormal EEG due to background slowing of at least moderate degree. This is suggestive of generalized cerebral dysfunction as can be seen with toxic metabolic encephalopathy or related to diffuse structural brain abnormality. Clinical correlation is recommended. No epileptiform activity was seen. MMODL / IJN: [id number] / [facility]
[2022-11-12] MEDS: HEPARIN SODIUM,PORCINE/PF 5,000 UNIT/0.5 ML SYRINGE SQ SCH ×2 (00:06→11:31)
[2022-11-12] MEDS: HYDROcodone/APAP 10-325MG 1 EACH TAB PO PRN ×3 (03:00→20:53)
[2022-11-12 06:05] LABS: Glucose,Whole Blood 113 mg/dL (70-110)
[2022-11-12] MEDS: PANTOPRAZOLE 40 MG TABLET PO SCH (06:24)
--- NOTE | 2022-11-12 08:05 | XR ---
EXAMINATION TYPE: XR chest 1V portable DATE OF EXAM: 11/12/2022 7:12 AM COMPARISON: Chest radiographs from 11/11/2022 TECHNIQUE: XR chest 1V portable Portable AP radiograph of the chest. CLINICAL INDICATION:Female, 82 years old with history of pneumonia; FINDINGS: Lungs/Pleura: Blunting of the left costophrenic angle with similar adjacent patchy airspace opacity. No pneumothorax. Pulmonary vascularity: Unremarkable. Heart/mediastinum: Cardiomediastinal silhouette is enlarged and stable. Atherosclerotic calcificatio ns are seen in the aorta. Musculoskeletal: No acute osseous pathology. Dextrocurvature of the thoracic spine. Other: Thoracic spinal stimulator device is redemonstrated. IMPRESSION: Similar small left pleural effusion with adjacent patchy airspace opacity which may represent atelect asis versus pneumonia.
[2022-11-12] MEDS ORDERED: fentaNYL (PF) 50 MCG/ML 2 ML AMP ONE (09:20)
[2022-11-12] MEDS ORDERED: SODIUM CHLORIDE 0.9% 500 ML 500 ML IV ONE (09:39)
[2022-11-12] MEDS ORDERED: MIDAZOLAM 2 MG/2 ML VIAL IV ONE (09:43)
[2022-11-12] MEDS ORDERED: BENZOCAINE SPRAY 1 CAN TOPICAL ONE (09:45)
[2022-11-12] MEDS ORDERED: fentaNYL (PF) 50 MCG/1 ML VIAL IV ONE (09:45)
--- NOTE | 2022-11-12 10:11 | CA ---
Transthoracic Echo Report Name: Adalgisa Barrera Age: 82 Gender: F : 1940 Exam Date: 11/12/2022 08:00 Exam Location: [facility] Ht (in): 65 Wt (lb): 191 Ordering Physician: Spencer Khan MD Attending/Referring Phys: Forest Supervisor Robyn Osei, DARYL Procedure CPT: Indications: CVA, A fib, bubble study, ?PFO Cardiac Hx: Technical Quality: Fair Contrast 1: Total Dose (mL): Contrast 2: Total Dose (mL): MEASUREMENTS (Male / Female) Normal Values 2D ECHO LV Diastolic Diameter PLAX 3.9 cm 4.2 - 5.9 / 3.9 - 5.3 cm LV Systolic Diameter PLAX 3.1 cm IVS Diastolic Thickness 1.4 cm 0.6 - 1.0 / 0.6 - 0.9 cm LVPW Diastolic Thickness 1.5 cm 0.6 - 1.0 / 0.6 - 0.9 cm LV Relative Wall Thickness 0.7 RV Internal Dim ED PLAX 3.2 cm LVOT Diameter 2.1 cm LA Systolic Diameter LX 2.7 cm 3.0 - 4.0 / 2.7 - 3.8 cm LA Volume 45.2 cm??? 18 - 58 / 22 - 52 cm??? M-MODE Aortic Root Diameter MM 3.0 cm MV E Point Septal Separation 0.6 cm AV Cusp Separation MM 1.3 cm DOPPLER AV Peak Velocity 142.5 cm/s AV Peak Gradient 8.1 mmHg MV Area PHT 2.4 cm??? Mitral E Point Velocity 46.6 cm/s Mitral A Point Velocity 97.8 cm/s Mitral E to A Ratio 0.5 MV Deceleration Time 309.8 ms MV E' Velocity 4.9 cm/s Mitral E to MV E' Ratio 9.6 FINDINGS Left Ventricle Left ventricular ejection fraction is estimated at 45-50 %. Left ventricular cavity size normal. Moderate concentric left ventricular hypertrophy. Mild global decrease in contractility Right Ventricle Normal right ventricular size and function. Right Atrium Normal right atrial size. Negative saline bubbles study Left Atrium Normal left atrial size. Mitral Valve Mitral annular calcification. No mitral stenosis, regurgitation or prolapse. Aortic Valve Trileaflet aortic valve. No aortic valve stenosis or regurgitation. Tricuspid Valve Structurally normal tricuspid valve. Pulmonic Valve Pulmonic valve not well visualized. Pericardium Normal pericardium. No pericardial effusion. Aorta Normal size aortic root and proximal ascending aorta. CONCLUSIONS Technically suboptimal study there is mild global decrease in contractility bubble study does not suggest any shunt. Mild mitral and tricuspid regurgitation no pericardial effusion Previewed by: Dr. Alayna Rousseau MD (Electronically Signed) Final Date: 12 November 2022 10:10
[2022-11-12] MEDS: FAMOTIDINE 20 MG TAB PO SCH (11:31)
[2022-11-12] MEDS: LOSARTAN 50 MG TAB PO SCH (11:31)
[2022-11-12] MEDS: allopurinoL 100 MG TAB PO SCH (11:31)
[2022-11-12] MEDS: PREGABALIN 75 MG CAP PO SCH ×2 (11:32→20:53)
[2022-11-12] MEDS: VERAPAMIL SR 120 MG TABLET.ER PO SCH (11:32)
--- NOTE | 2022-11-12 11:32 | ECHOS ---
STRESS ECHOCARDIOGRAM INDICATIONS: CVA, rule out intracardiac thrombus. PROCEDURE NOTE: After obtaining informed consent, transesophageal echocardiogram was performed in left lateral position using an Omniplane probe. Local and IV sedation were obtained using Xylocaine spray, 1 mg of Versed and 25 mcg of fentanyl. The patient tolerated the procedure well without any obvious immediate complications. FINDINGS: 1. There is no intracardiac thrombus within the left atrial appendage, left atrium, right atrium, right ventricle, or left ventricle. 2. Left ventricle has normal size and systolic function. 3. Left atrium appears enlarged. 4. Right atrium, right ventricle seen within normal limits. 5. Aortic valve is a 3-leaflet valve. Aortic valve leaflets are thickened and calcified. There is no evidence of aortic stenosis or regurgitation. 6. Mitral valve shows mitral annular calcification with mild central mitral regurgitation. 7. Tricuspid valve appears normal. 8. Interatrial septum, there is no evidence of [id number] shunt by color-flow Doppler or [id number] shunt by agitated saline contrast study. CONCLUSIONS: No intracardiac source of thromboembolic phenomenon. MMODL / IJN: [id number] /
[2022-11-12 11:41] LABS: Glucose,Whole Blood 109 mg/dL (70-110)
--- NOTE | 2022-11-12 11:46 | P.HPIM ---
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 Patient was recently hospitalized and discharged on 11/08 for metabolic encephalopathy secondary to acute E. coli urinary tract infection and discharged home on Ceftin. Subsequently, patient was not feeling well was more confused and disoriented and she was found on the floor naked and yelling. There was then noticed a facial droop and slurred speech and blank stare. Patient was brought in to the emergency center by EMS. Patient was unable to answer questions, word salad.Initial blood pressure 115/86, heart rate was 111, pulse ox 98% on room air. There was concern the patient was in new atrial fibrillation and consult was placed with cardiology, consult placed with neurology. Patient seen in the emergency center waiting for a bed on 3S. CBC was unremarkable. INR 1. Electrolytes were normal, BUN 18 and creatinine 0.76. Blood sugar 161. Liver function tests were normal.troponin was negative. Pro-calcitonin 0.05.urinalysis chest x-ray reveals limited evaluation due to low lung volumes, cannot rule out progressive basilar infiltrates and effusions nonspecific, cannot rule out pneumonia. CAT scan of the brain revealed mild age-related findings. No acute infarct bleed or acute intracranial abnormality. CAT scan was reviewed by neurology and reported subacute ischemic stroke involving the right carotid head in the current study which was not present on the CAT scan done on 11/04. Carotid ultrasound reveals no hemodynamically significant stenosis. REVIEW OF SYSTEMS Constitutional: No fever, no chills, no night sweats. No weight change. No weakness, fatigue or lethargy. No daytime sleepiness. EENT: No headache. No blurred vision or double vision, no loss of vision. Chronic loss of Hearing, no ringing in the ears, no dizziness. No nasal drainage or congestion. No epistaxis. No sore throat. Lungs: No shortness of breath, cough, no sputum production. No wheezing. Cardiovascular: No chest pain, no lower extremity edema. No palpitations. No paroxysmal nocturnal dyspnea. No orthopnea. No lightheadedness or dizziness. No syncopal episodes. Abdominal: No abdominal pain. No nausea, vomiting. No diarrhea. No consti pation. No bloody or tarry stools. No loss of appetite. Genitourinary: No dysuria, increased frequency, urgency. No urinary retention. Musculoskeletal: No myalgias. Noted muscle weakness, noted gait dysfunction, fall at home. No back pain. No neck pain. Integumentary: No wounds. No rash or pruritus. No unusual bruising. No change in hair or nails. Neurologic: Noted aphasia. No facial droop. Noted change in mentation. No head injury. No headache. No paralysis. No paresthesia. Psychiatric: No depression. No anxiety. No mood swings. Endocrine: No abnormal blood sugars. No weight change. No excessive sweating or thirst. No cold intolerance. 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 SURGICAL HISTORY Cataract surgery left 20/20 Tonsillectomy and adenoidectomy Laminectomy with fusion of L1-S1 Lumbar discitis post-hardware removal SI joint fusion 2 Spinal cord stimulator Seroma on the back post-wound VAC line colonoscopy with polyps 2018. SOCIAL HISTORY Patient is a lifelong nonsmoker, no alcohol abuse, no illicit drug use. FAMILY HISTORY Father at age 80. Mother at the age of 86 from myocardial infarction had history of hypertension, hyperlipidemia. Patient has one brother with no major medical problems and one sister with no major medical problems. Patient has 3 daughters with no major medical problems. PHYSICAL EXAMINATION Gen: This is an 82-year-old obese female. She is resting and appears to be comfortable and in no acute distress. HEENT: Head is atraumatic, normocephalic. Pupils equal, round. Sclerae is anicteric. NECK: Supple. No JVD. No lymphadenopathy. No thyromegaly. LUNGS: Clear to auscultation. No wheezes or rhonchi. No intercostal retractions. HEART: First heart sound is depressed, second heart sound is normal, 2/6 systolic ejection murmur at the left sternal border. ABDOMEN: Soft. Bowel sounds are present. No masses. No tenderness. EXTREMITIES: No pedal edema. No calf tenderness. NEUROLOGICAL: Patient is awake, alert and oriented to person and place. ASSESSMENT AND PLAN 1. Metabolic encephalopathy secondary to possible subacute CVA. Consult with neurology. Patient started on aspirin, atorvastatin. Consult Pt, OT and ST. 2. New onset atrial fibrillation, paroxysmal. Cardiology consult. Continue patient on verapamil 120 mg daily. 3. Recent urinary tract infection. Completed antibiotics. 4. Hypertension. Resume patient on hydrochlorothiazide 12.5 mg daily starting in 24-48hrs. Continue patient on losartan 100 mg daily, verapamil 120 mg daily. 5. Hyperlipidemia. Continue pravastatin 20 mg daily. 6. Diabetes mellitus type 2. Continue patient on add NovoLog scale before meals and at bedtime. Hold metformin. 7. Diabetic polyneuropathy. Continue Lyrica 150 mg twice daily. 8. 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 Continue baclofen 10 mg 3 times daily as needed, Voltaren gel 2 g topically 4 times daily, [place] 1 every 6 hours as needed for pain. 9. Idiopathic gout. Continue allopurinol 100 mg daily. 10. Obstructive sleep apnea. Continue CPAP. 11. GI prophylaxis and gastroesophageal reflux disease. Continue Pepcid 40 mg at bedtime. 12. DVT prophylaxis. Lovenox 40 mg subcu daily. Patient will be admitted to the hospital for a minimum of 2 night stay. DISCHARGE PLAN To be determined. Consult with PT and OT. Impression and plan of care have been directed as dictated by the signing ernst danielle. Yokasta Haider nurse practitioner acting as scribe for signing physician. Past Medical History Past Medical History: Hypertension Additional Past Medical History / Comment(s): UTI, fibromylagia, respiroaty failure History of Any Multi-Drug Resistant Organisms: None Reported Past Surgical History: Back Surgery Additional Past Surgical History / Comment(s): 5 back surgery since 2014. Past Anesthesia/Blood Transfusion Reactions: No Reported Reaction Smoking Status: Never smoker Medications and Allergies Home Medications Medication Instructions Recorded Confirmed Type Aspirin EC [Ecotrin Low Dose] 81 mg PO DAILY 09/21/20 11/11/22 History Baclofen [Lioresal] 10 mg PO TID PRN 09/21/20 11/11/22 History Multivitamins, Thera [Multivitamin 1 tab PO DAILY 09/21/20 11/11/22 History (formulary)] Pregabalin [Lyrica] 150 mg PO BID 09/21/20 11/11/22 History allopurinoL [Zyloprim] 100 mg PO DAILY 09/21/20 11/11/22 History Acetaminophen Tab [Tylenol] 1,000 mg PO QID PRN 11/04/22 11/11/22 History Cholecalciferol [Vitamin D3 (25 25 mcg PO DAILY 11/04/22 11/11/22 History Mcg = 1000 Iu)] Diclofenac Sodium Gel [Voltaren 1 applic TOPICAL QID PRN 11/04/22 11/11/22 History Gel] Famotidine 20 - 40 mg PO DAILY 11/04/22 11/11/22 History HYDROcodone/APAP 10-325MG [[place] 1 tab PO QID PRN 11/04/22 11/11/22 History 10-325] L.acidoph,Paracasei, B.lactis 1 cap PO DAILY 11/04/22 11/11/22 History [Probiotic] Losartan Potassium [Cozaar] 100 mg PO DAILY 11/04/22 11/11/22 History Omeprazole [PriLOSEC] 20 mg PO DAILY 11/04/22 11/11/22 History Pravastatin Sodium [Pravachol] 20 mg PO DAILY 11/04/22 11/11/22 History Ubidecarenone [Coenzyme Q10] 200 mg PO DAILY 11/04/22 11/11/22 History Verapamil HCl [Verapamil ER] 120 mg PO DAILY 11/04/22 11/11/22 History Vitamin B Complex 1 cap PO DAILY 11/04/22 11/11/22 History hydroCHLOROthiazide 12.5 mg PO DAILY 11/04/22 11/11/22 History metFORMIN HCL [Glucophage] 500 mg PO BID-W/MEALS #60 tab 11/08/22 11/11/22 Rx Allergies Allergy/AdvReac Type Severity Reaction Status Date / Time cephalexin [From Keflex] Allergy Rash/Hives Verified 11/11/22 06:54 clindamycin Allergy Rash/Hives Verified 11/11/22 06:54 Penicillins Allergy Unknown Verified 11/11/22 06:54 oxybutynin [From Ditropan] AdvReac Hallucinati Verified 11/11/22 06:54 ons Physical Exam Vitals: Vital Signs Temp Pulse Pulse Resp BP BP Pulse Ox 11/11/22 08:10 97.7 F 79 18 179/96 98 11/11/22 08:00 79 18 11/11/22 04:51 95 14 165/87 94 L 11/11/22 03:04 93 16 165/102 93 L 11/11/22 02:41 92 20 172/91 96 11/11/22 02:13 90 20 173/100 96 11/11/22 00:19 98.2 F 111 H 20 115/86 98 Intake and Output 11/10/22 11/11/22 11/11/22 22:59 06:59 14:59 Other: Voiding Method External Catheter Weight 86.636 kg 86.636 kg Results CBC & Chem 7: 11/11/22 00:29 11/11/22 00:29 Labs: Abnormal Lab Results - Last 24 Hours (Table) 11/11/22 11/11/22 11/11/22 Range/Units 00:25 00:29 00:29 Lymphocytes # 0.8 L (1.0-4.8) k/uL APTT 21.7 L (22.0-30.0) sec BUN (7-17) mg/dL Glucose (74-99) mg/dL POC Glucose (mg/dL) 161 H (70-110) mg/dL Plasma Lactic Acid [place]ico (0.7-2.0) mmol/L Urine Protein (Negative) Urine Ketones (Negative) Urine Blood (Negative) Urine RBC (0-5) /hpf Hyaline Casts (0-2) /lpf Urine Mucus (None) /hpf 11/11/22 11/11/22 11/11/22 Range/Units 00:29 00:29 02:38 Lymphocytes # (1.0-4.8) k/uL APTT (22.0-30.0) sec BUN 18 H (7-17) mg/dL Glucose 161 H (74-99) mg/dL POC Glucose (mg/dL) (70-110) mg/dL Plasma Lactic Acid [place] 3.3 H* (0.7-2.0) mmol/L Urine Protein Trace H (Negative) Urine Ketones 1+ H (Negative) Urine Blood Trace H (Negative) Urine RBC 11 H (0-5) /hpf Hyaline Casts 8 H (0-2) /lpf Urine Mucus Few H (None) /hpf 11/11/22 11/11/22 Range/Units 08:06 12:17 Lymphocytes # (1.0-4.8) k/uL APTT (22.0-30.0) sec BUN (7-17) mg/dL Glucose (74-99) mg/dL POC Glucose (mg/dL) 127 H 130 H (70-110) mg/dL Plasma Lactic Acid [place] (0.7-2.0) mmol/L Urine Protein (Negative) Urine Ketones (Negative) Urine Blood (Negative) Urine RBC (0-5) /hpf Hyaline Casts (0-2) /lpf Urine Mucus (None) /hpf Thrombosis Risk Factor Assmnt - Choose All That Apply Any of the Below Risk Factors Present?: Yes Each Factor Represents 1 point: Obesity (BMI >25) Other Risk Factors: Yes Each Risk Factor Represents 3 Points: Age 75 years or older Thrombosis Risk Factor Assessment Total Risk Factor Score: 4 Thrombosis Risk Factor Assessment Level: Moderate Risk
[2022-11-12 16:33] LABS: Glucose,Whole Blood 182 mg/dL (70-110)
[2022-11-12 20:00] LABS: Glucose,Whole Blood 123 mg/dL (70-110)
[2022-11-12] MEDS: ATORVASTATIN 40 MG TAB PO SCH (20:53)
[2022-11-12] MEDS: APIXABAN 5 MG TAB PO SCH (20:53)
[2022-11-13 05:58] LABS: Glucose,Whole Blood 134 mg/dL (70-110)
[2022-11-13] MEDS: PANTOPRAZOLE 40 MG TABLET PO SCH (06:12)
[2022-11-13] MEDS: VERAPAMIL SR 120 MG TABLET.ER PO SCH (08:44)
[2022-11-13] MEDS: allopurinoL 100 MG TAB PO SCH (08:44)
[2022-11-13] MEDS: LOSARTAN 50 MG TAB PO SCH (08:44)
[2022-11-13] MEDS: HYDROcodone/APAP 10-325MG 1 EACH TAB PO PRN ×2 (08:44→17:02)
[2022-11-13] MEDS: FAMOTIDINE 20 MG TAB PO SCH (08:44)
[2022-11-13] MEDS: APIXABAN 5 MG TAB PO SCH (08:44)
[2022-11-13] MEDS: PREGABALIN 75 MG CAP PO SCH (08:44)
[2022-11-13] MEDS ORDERED: DAPAGLIFLOZIN PROPANEDIOL 5 MG TABLET PO SCH (09:00)
[2022-11-13] MEDS ORDERED: hydroCHLOROthiazide 12.5 MG CAP PO SCH (09:00)
--- NOTE | 2022-11-13 09:55 | P.PN ---
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 Patient was recently hospitalized and discharged on 11/08 for metabolic encephalopathy secondary to acute E. coli urinary tract infection and discharged home on Ceftin. Subsequently, patient was not feeling well was more confused and disoriented and she was found on the floor naked and yelling. There was then noticed a facial droop and slurred speech and blank stare. Patient was brought in to the emergency center by EMS. Patient was unable to answer questions, word salad.Initial blood pressure 115/86, heart rate was 111, pulse ox 98% on room air. There was concern the patient was in new atrial fibrillation and need for LAUREN consult was placed with cardiology, consult placed with neurology and pulmonary medicine as well. Patient seen in the emergency center waiting for a bed on 3S. CBC was unremarkable. INR 1. Electrolytes were normal, BUN 18 and creatinine 0.76. Blood sugar 161. Liver function tests were normal.troponin was negative. Pro-calcitonin 0.05.urinalysis chest x-ray reveals limited evaluation due to low lung volumes, cannot rule out progressive basilar infiltrates and effusions nonspecific, cannot rule out pneumonia. CAT scan of the brain revealed mild age-related findings. No acute infarct bleed or acute intracranial abnormality. CAT scan was reviewed by neurology and reported subacute ischemic stroke involving the right carotid head in the curre nt study which was not present on the CAT scan done on 11/04. Carotid ultrasound reveals no hemodynamically significant stenosis. REVIEW OF SYSTEMS Constitutional: No fever, no chills, no night sweats. No weight change. No weakness, fatigue or lethargy. No daytime sleepiness. EENT: No headache. No blurred vision or double vision, no loss of vision. Chronic loss of Hearing, no ringing in the ears, no dizziness. No nasal drainage or congestion. No epistaxis. No sore throat. Lungs: No shortness of breath, cough, no sputum production. No wheezing. Cardiovascular: No chest pain, no lower extremity edema. No palpitations. No paroxysmal nocturnal dyspnea. No orthopnea. No lightheadedness or dizziness. No syncopal episodes. Abdominal: No abdominal pain. No nausea, vomiting. No diarrhea. No constipation. No bloody or tarry stools. No loss of appetite. Genitourinary: No dysuria, increased frequency, urgency. No urinary retention. Musculoskeletal: No myalgias. Noted muscle weakness, noted gait dysfunction, fall at home. No back pain. No neck pain. Integumentary: No wounds. No rash or pruritus. No unusual bruising. No change in hair or nails. Neurologic: Noted aphasia. No facial droop. Noted change in mentation. No head injury. No headache. No paralysis. No paresthesia. Psychiatric: No depression. No anxiety. No mood swings. Endocrine: No abnormal blood sugars. No weight change. No excessive sweating or thirst. No cold intolerance. 11/12: Today, patient is able to speak in full sentences, no noted weakness or ne uro deficits. Patient has been seen by pulmonary medicine for atelectasis, negative for calcitonin and stable from pulmonary standpoint. Patient is also been seen by cardiology and patient is scheduled for LAUREN today with Dr. Lashanda Boyd. Plan is for event monitor at the time of discharge. Patient is to start on eliquis following LAUREN. Neurology has evaluated the patient for subacute CVA. Patient is unable to undergo MRI due to back stimulator. Echocardiogram reveals technically suboptimal study there is mild global decrease in contractility bubble study does not suggest any shunt. Mild mitral and tricuspid regurgitation. No pericardial effusion. Repeat chest x-ray reveals similar small left pleural effusion with adjacent patchy airspace opacities which may represent atelectasis versus pneumonia. EEG is abnormal with slowing in the background showing at least moderate degree. Suggestive of generalized cerebral dysfunction seen with toxic metabolic encephalopathy or related to diffuse structural brain abnormality. No epileptiform activity. Therapy recommendations subacute rehab. Patient is looking at either [facility] or [facility]. Most likely discharge tomorrow. PHYSICAL EXAMINATION Gen: This is an 82-year-old obese female. She is resting and appears to be comfortable and in no acute distress. HEENT: Head is atraumatic, normocephalic. Pupils equal, round. Sclerae is anicteric. NECK: Supple. No JVD. No lymphadenopathy. No thyromegaly. LUNGS: Clear to auscultation. No wheezes or rhonchi. No intercostal retractions. HEART: First heart sound is depressed, second heart sound is normal, 2/6 systolic ejection murmur at the left sternal border. ABDOMEN: Soft. Bowel sounds are present. No masses. No tenderness. EXTREMITIES: No pedal edema. No calf tenderness. NEUROLOGICAL: Patient is awake, alert and oriented 3. No neuro deficits. ASSESSMENT AND PLAN 1. Metabolic encephalopathy secondary to possible subacute CVA or TIA. Consult with neurology. Patient started on aspirin, atorvastatin. Consult Pt, OT and ST. 2. New onset atrial fibrillation, paroxysmal. Cardiology consult. Continue patient on verapamil 120 mg daily. 3. Recent urinary tract infection. Completed antibiotics. 4. Hypertension. Resume patient on hydrochlorothiazide 12.5 mg daily starting in 24-48hrs. Continue patient on losartan 100 mg daily, verapamil 120 mg daily. 5. Hyperlipidemia. Continue pravastatin 20 mg daily. 6. Diabetes mellitus type 2. Continue patient on add NovoLog scale before meals and at bedtime. Hold metformin. 7. Diabetic polyneuropathy. Continue Lyrica 150 mg twice daily. 8. 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 Continue baclofen 10 mg 3 times daily as needed, Voltaren gel 2 g topically 4 times daily, [place] 1 every 6 hours as needed for pain. 9. Idiopathic gout. Continue allopurinol 100 mg daily. 10. Obstructive sleep apnea. Continue CPAP. 11. GI prophylaxis and gastroesophageal reflux disease. Continue Pepcid 40 mg at bedtime. 12. DVT prophylaxis. Lovenox 40 mg subcu daily. Patient will be admitted to the hospital for a minimum of 2 night stay. DISCHARGE PLAN Subacute rehab tomorrow. Continue treatment with PT and OT. Impression and plan of care have been directed as dictated by the signing physician. Yokasta Haider nurse practitioner acting as scribe for signing physician. Objective - Vital Signs Vital signs: Vital Signs Temp 97.6 F 11/12/22 08:53 Pulse 78 11/12/22 08:53 Resp 18 11/12/22 08:53 BP 169/96 11/12/22 08:53 Pulse Ox 94 L 11/12/22 08:53 FiO2 Intake & Output 11/11/22 11/12/22 11/12/22 18:59 06:59 18:59 Intake Total 110 Balance 110 Weight 86.636 kg Intake: IV 110 Invasive Line 2 10 Other: Voiding Method External Catheter External Catheter External Catheter # Voids 1 1 # Bowel Movements 1 - Labs CBC & Chem 7: 11/11/22 00:29 11/11/22 00:29 Labs: Abnormal Lab Results - Last 24 Hours (Table) 11/11/22 11/11/22 11/11/22 Range/Units 12:17 16:43 20:08 POC Glucose (mg/dL) 130 H 122 H 127 H (70-110) mg/dL 11/12/22 Range/Units 06:02 POC Glucose (mg/dL) 113 H (70-110) mg/dL Microbiology - Last 24 Hours (Table) 11/11/22 05:15 Blood Culture - Preliminary Blood No Growth after 24 hours 11/11/22 05:25 Blood Culture - Preliminary Blood No Growth after 24 hours
--- NOTE | 2022-11-13 10:17 | P.DS ---
Providers Date of admission: 11/11/22 04:08 Expected date of discharge: 11/13/22 Attending physician: Olya Austin Consults: 11/11/22 07:27 Consult Physician Routine Consulting Provider: Gus Pizano Consult Reason/Comments: mental status change Do you want consulting provider notified?: Yes Consult Physician Routine Consulting Provider: Chava Munson Consult Reason/Comments: pneumonia Do you want consulting provider notified?: Yes 11/11/22 09:17 Consult Physician Urgent Consulting Provider: Josh Brumfield Consult Reason/Comments: New onset Atrial Fibrillation, probable subacute CVA Do you want consulting provider notified?: Yes Primary care physician: Olya Austin Hospital Course: HISTORY OF PRESENT ILLNESS This is an 82-year-old female patient with PMH of HTN, HLD, gastroesophageal reflux disease, diabetes mellitus type 2, 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 Patient was recently hospitalized and discharged on 11/08 for metabolic encephalopathy secondary to acute E. coli urinary tract infection and discharged home on Ceftin. Subsequently, patient was not feeling well was more confused and disoriented and she was found on the floor naked and yelling. There was then noticed a facial droop and slurred speech and blank stare. Patient was brought in to the emergency center by EMS. Patient was unable to answer questions, word salad.Initial blood pressure 115/86, heart rate was 111, pulse ox 98% on room air. There was concern the patient was in new atrial fibrillation and need for LAUREN consult was placed with cardiology, consult placed with neurology and pulmonary medicine as well. Patient seen in the emergency center waiting for a bed on 3S. CBC was unremarkable. INR 1. Electrolytes were normal, BUN 18 and creatinine 0.76. Blood sugar 161. Liver function tests were normal.troponin was negative. Pro-calcitonin 0.05.urinalysis chest x-ray reveals limited evaluation due to low lung volumes, cannot rule out progressive basilar infiltrates and effusions nonspecific, cannot rule out pneumonia. CAT scan of the brain revealed mild age-related findings. No acute infarct bleed or acute intracranial abnormality. CAT scan was reviewed by neurology and reported subacute ischemic stroke involving the right carotid head in the current study which was not present on the CAT scan done on 11/04. Carotid ultrasound reveals no hemodynamically significant stenosis. REVIEW OF SYSTEMS Constitutional: No fever, no chills, no night sweats. No weight change. No weakness, fatigue or lethargy. No daytime sleepiness. EENT: No headache. No blurred vision or double vision, no loss of vision. Chronic loss of Hearing, no ringing in the ears, no dizziness. No nasal drainage or congestion. No epistaxis. No sore throat. Lungs: No shortness of breath, cough, no sputum production. No wheezing. Cardiovascular: No chest pain, no lower extremity edema. No palpitations. No paroxysmal nocturnal dyspnea. No orthopnea. No lightheadedness or dizziness. No syncopal episodes. Abdominal: No abdominal pain. No nausea, vomiting. No diarrhea. No constipation. No bloody or tarry stools. No loss of appetite. Genitourinary: No dysuria, increased frequency, urgency. No urinary retention. Musculoskeletal: No myalgias. Noted muscle weakness, noted gait dysfunction, fall at home. No back pain. No neck pain. Integumentary: No wounds. No rash or pruritus. No unusual bruising. No change in hair or nails. Neurologic: Noted aphasia. No facial droop. Noted change in mentation. No head injury. No headache. No paralysis. No paresthesia. Psychiatric: No depression. No anxiety. No mood swings. Endocrine: No abnormal blood sugars. No weight change. No excessive sweating or thirst. No cold intolerance. 11/12: Today, patient is able to speak in full sentences, no noted weakness or neuro deficits. Patient has been seen by pulmonary medicine for atelectasis, negative for calcitonin and stable from pulmonary standpoint. Patient is also been seen by cardiology and patient is scheduled for LAUREN today with Dr. Lashanda Boyd. Plan is for event monitor at the time of discharge. Patient is to start on eliquis following LAUREN. Neurology has evaluated the patient for subacute CVA. Patient is unable to undergo MRI due to back stimulator. Echocardiogram reveals technically suboptimal study there is mild global decrease in contractility bubble study does not suggest any shunt. Mild mitral and tricuspid regurgitation. No pericardial effusion. Repeat chest x-ray reveals similar small left pleural effusion with adjacent patchy airspace opacities which may represent atelectasis versus pneumonia. EEG is abnormal with slowing in the background showing at least moderate degree. Suggestive of generalized cerebral dysfunction seen with toxic metabolic encephalopathy or related to diffuse structural brain abnormality. No epileptiform activity. Therapy recommendations subacute rehab. Patient is looking at either [facility] or [facility]. Most likely discharge tomorrow. 11/13: Patient continues to do very well. She was started on eliquis yesterday. LAUREN revealed no intracardiac source of thromboembolic phenomenon. Blood pressure 148/72 this morning. Patient will be starting on hydrochlorothiazide today. Heart rate is in the 70s to 90s. Pulse ox 95% on room air. Patient is doing very well with physical therapy and plan is set now to return home versus subacute rehab. Patient was discharged back to [facility] on 11/13. Following discharge, the insurance authorization was obtained on 11/14 for subacute rehab. Family is interested in subacute rehab and arrangements made outpatient for her to go from [facility] to [facility]. DISCHARGE DIAGNOSES 1. Metabolic encephalopathy secondary to possible subacute CVA. 2. New onset atrial fibrillation, paroxysmal. 3. Recent urinary tract infection. 4. Hypertension. 5. Hyperlipidemia. 6. Diabetes mellitus type 2. 7. Diabetic polyneuropathy. 8. 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 9. Idiopathic gout. 10. Obstructive sleep apnea. DISCHARGE PLAN [facility] with home care Greater than 35 minutes was utilized and coordinating patient's discharge. Impression and plan of care have been directed as dictated by the signing physician. Yokasta Haider nurse practitioner acting as scribe for signing physician. Patient Condition at Discharge: Stable Plan - Discharge Summary New Discharge Prescriptions: New Dapagliflozin Propanediol [Farxiga] 5 mg PO DAILY #30 tab Apixaban [Eliquis] 5 mg PO BID #60 tab Semaglutide [Ozempic] 0.25 mg SQ WEEKLY #1 each Atorvastatin [Lipitor] 40 mg PO HS #30 tablet Continue Baclofen [Lioresal] 10 mg PO TID PRN PRN Reason: Muscle Spasm allopurinoL [Zyloprim] 100 mg PO DAILY Multivitamins, Thera [Multivitamin (formulary)] 1 tab PO DAILY Famotidine 20 - 40 mg PO DAILY Verapamil HCl [Verapamil ER] 120 mg PO DAILY Omeprazole [PriLOSEC] 20 mg PO DAILY Losartan Potassium [Cozaar] 100 mg PO DAILY metFORMIN HCL [Glucophage] 500 mg PO BID-W/MEALS #60 tab Vitamin B Complex 1 cap PO DAILY Diclofenac Sodium Gel [Voltaren Gel] 1 applic TOPICAL QID PRN PRN Reason: Pain Ubidecarenone [Coenzyme Q10] 200 mg PO DAILY LRyleyacidfan,Paracasei, B.lactis [Probiotic] 1 cap PO DAILY Acetaminophen Tab [Tylenol] 1,000 mg PO QID PRN PRN Reason: Fever And/ Or Pain Cholecalciferol [Vitamin D3 (25 Mcg = 1000 Iu)] 25 mcg PO DAILY hydroCHLOROthiazide 12.5 mg PO DAILY HYDROcodone/APAP 10-325MG [Benson 10-325] 1 tab PO QID PRN #12 tab PRN Reason: Pain Pregabalin [Lyrica] 150 mg PO BID #6 cap Discontinued Aspirin EC [Ecotrin Low Dose] 81 mg PO DAILY Pravastatin Sodium [Pravachol] 20 mg PO DAILY Discharge Medication List Baclofen [Lioresal] 10 mg PO TID PRN 09/21/20 [History] Multivitamins, Thera [Multivitamin (formulary)] 1 tab PO DAILY 09/21/20 [History] allopurinoL [Zyloprim] 100 mg PO DAILY 09/21/20 [History] Acetaminophen Tab [Tylenol] 1,000 mg PO QID PRN 11/04/22 [History] Cholecalciferol [Vitamin D3 (25 Mcg = 1000 Iu)] 25 mcg PO DAILY 11/04/22 [History] Diclofenac Sodium Gel [Voltaren Gel] 1 applic TOPICAL QID PRN 11/04/22 [History] Famotidine 20 - 40 mg PO DAILY 11/04/22 [History] L.acidfan,Paracasei, B.lactis [Probiotic] 1 cap PO DAILY 11/04/22 [History] Losartan Potassium [Cozaar] 100 mg PO DAILY 11/04/22 [History] Omeprazole [PriLOSEC] 20 mg PO DAILY 11/04/22 [History] Ubidecarenone [Coenzyme Q10] 200 mg PO DAILY 11/04/22 [History] Verapamil HCl [Verapamil ER] 120 mg PO DAILY 11/04/22 [History] Vitamin B Complex 1 cap PO DAILY 11/04/22 [History] hydroCHLOROthiazide 12.5 mg PO DAILY 11/04/22 [History] metFORMIN HCL [Glucophage] 500 mg PO BID-W/MEALS #60 tab 11/08/22 [Rx] Apixaban [Eliquis] 5 mg PO BID #60 tab 11/13/22 [Rx] Atorvastatin [Lipitor] 40 mg PO HS #30 tablet 11/13/22 [Rx] Dapagliflozin Propanediol [Farxiga] 5 mg PO DAILY #30 tab 11/13/22 [Rx] HYDROcodone/APAP 10-325MG [Benson 10-325] 1 tab PO QID PRN #12 tab 11/13/22 [Rx] Pregabalin [Lyrica] 150 mg PO BID #6 cap 11/13/22 [Rx] Semaglutide [Ozempic] 0.25 mg SQ WEEKLY #1 each 11/13/22 [Rx] Follow up Appointment(s)/Referral(s): Alayna Rousseau MD [STAFF PHYSICIAN] - 1 Week (please call the office tomorrow to make your appointment) Olya Austin MD [Primary Care Provider] - 1 Week (please call the office tomorrow to make your appointment) Patient Instructions/Handouts: Transient Ischemic Attack (DC) Discharge Disposition: HOME WITH HOME HEALTH SERVICES
--- NOTE | 2022-11-13 11:01 | P.PN ---
Subjective Progress Note Date: 11/12/22 Patient was seen for a follow-up. Patient says that she is feeling better than yesterday. Denies any headache. Patient states that she had a PE one year ago for which she was on Eliquis, which was subsequently discontinued in July 2021. Objective - Vital Signs Vital signs: Vital Signs Temp 97.6 F 11/12/22 08:53 Pulse 78 11/12/22 08:53 Resp 18 11/12/22 08:53 BP 169/96 11/12/22 08:53 Pulse Ox 94 L 11/12/22 08:53 FiO2 Intake & Output 11/11/22 11/12/22 11/12/22 18:59 06:59 18:59 Intake Total 110 Balance 110 Weight 86.636 kg Intake: IV 110 Invasive Line 2 10 Other: Voiding Method External Catheter External Catheter External Catheter # Voids 1 1 # Bowel Movements 1 - Exam Patient's mental status, speech and language functions are normal. Examination significant for right facial asymmetry, right pronation, no drift. The strength is normal. Sensation is equal. - Labs CBC & Chem 7: 11/11/22 00:29 11/11/22 00:29 Labs: Abnormal Lab Results - Last 24 Hours (Table) 11/11/22 11/11/22 11/12/22 Range/Units 16:43 20:08 06:02 POC Glucose (mg/dL) 122 H 127 H 113 H (70-110) mg/dL Microbiology - Last 24 Hours (Table) 11/11/22 05:15 Blood Culture - Preliminary Blood No Growth after 24 hours 11/11/22 05:25 Blood Culture - Preliminary Blood No Growth after 24 hours Assessment and Plan Assessment: * Probable subacute ischemic stroke. CT head revealed subacute ischemic stroke involving right caudate head, which was not present in the computed tomography scan of head from 11/04/2022. * New onset atrial fibrillation * Hypertension * Diabetes * Hyperlipidemia * Obesity * Recently treated for UTI * History of back simulator placement Plan: * MRI of the brain cannot be performed because patient has a back stimulator. * 2-D echo with bubble study was technically limited study with mild global decrease in contractility with EF 45-50%. Left ventricular cavity size is normal. Moderate concentric LVH. Normal left atrial size.. Bubble study does not suggest any shunt. * LAUREN performed today revealed no intracardiac source of thromboembolic phenomenon. Left atrium appears enlarged. Mild MR. Interatrial septum was intact. * Carotid Doppler, revealed no hemodynamically significant stenosis in either ICA. Antegrade flow in both vertebral arteries. * Fasting a.m. lipid panel with cholesterol 213, LDL 108, HDL 67 triglycerides 188. Start Lipitor 40 mg daily. * Hemoglobin A1c 7.1. Recommend optimize control of diabetes to target A1c <7.0 * Patient has developed new onset atrial fibrillation. Cardiology input appreciated. Patient started on Eliquis 5 mg twice a day. * Optimize control of blood pressure. * PT, OT, speech therapy * EEG was abnormal due to background slowing of at least moderate degree. This is suggestive of generalized cerebral dysfunction as can be seen with toxic metabolic encephalopathy or related to diffuse structural brain abnormality. No epileptiform activity was seen. * Neurologically clear.
[2022-11-13 11:35] LABS: Glucose,Whole Blood 123 mg/dL (70-110)
[2022-11-13 12:02] VITALS: BP 128/79; TEMP 96.4
--- NOTE | 2022-11-13 13:02 | P.PN ---
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 We have been asked to see the patient for new onset atrial fibrillation. Patient was recently hospitalized and discharged on Friday due to metabolic encephalopathy secondary to dehydration and UTI. Last night, patient was not feeling well had more confusion and disoriented and she was found on the floor. Patient was then transferred to the emergency center for further evaluation. There was concern for new onset of atrial fibrillation and need for LAUREN due to subacute CVA. With EKG sinus rhythm with PACs, telemetry showing episodes of atrial fibrillation Chest x-ray: Limited evaluation due to low lung volumes, cannot rule out progressive basilar infiltrates and effusions nonspecific, cannot rule out pneumonia. CAT scan of the brain revealed mild age-related findings. No acute infarct, bleed or acute intracranial abnormality. CAT scan was reviewed by neurology and revealed subacute ischemic stroke involving the right caudate head in the current study which was not present on a CAT scan done on 11/04. Carotid ultrasound reveals no hemodynamically significant stenosis Home cardiac medications: Aspirin 81 mg daily, hydrochlorothiazide 12.5 mg daily, losartan 100 mg daily, pravastatin 20 mg daily, verapamil 120 mg daily 11/13/2022 Patient is s/p LAUREN revealing no intracardiac source of thromboembolic phenomenon. No evidence of PFO. Patient currently denies chest pain or pressur e. She denies shortness of breath. Patient's vital signs are stable. PHYSICAL EXAM: VITAL SIGNS: Reviewed. GENERAL: Well-developed in no acute distress. NECK: Supple. No JVD or thyromegaly LUNGS: Respirations even and unlabored. Lungs essentially clear to auscultation bilaterally. HEART: Regular rate and rhythm. S1 and S2 heard. EXTREMITIES: Normal range of motion. No clubbing or cyanosis. Peripheral pulses intact. No lower extremity edema ASSESSMENT: Subacute CVA New onset paroxysmal atrial fibrillation, currently maintaining sinus mechanism History of pulmonary embolism Hypertension Hyperlipidemia Diabetes mellitus type 2 PLAN: Continue current cardiac medications Patient does not require event monitor at the time of discharge per Dr. Boyd Patient is stable for discharge home today from a cardiac standpoint She is to follow up on an outpatient basis Nurse practitioner note has been reviewed by physician. Signing provider agrees with the documented findings, assessment, and plan of care. Objective - Vital Signs Vital signs: Vital Signs Temp 96.4 F L 11/13/22 12:00 Pulse 84 11/13/22 12:00 Resp 16 11/13/22 12:00 BP 128/79 11/13/22 12:00 Pulse Ox 97 11/13/22 12:00 FiO2 Intake & Output 11/12/22 11/13/22 11/13/22 18:59 06:59 18:59 Intake Total 228 Output Total 75 500 Balance 228 -75 -500 Intake: IV 110 Invasive Line 2 10 Oral 118 Output: Urine 75 500 Other: Voiding Method External Catheter External Catheter External Catheter # Voids 1 - Labs CBC & Chem 7: 11/11/22 00:29 11/11/22 00:29 Labs: Abnormal Lab Results - Last 24 Hours (Table) 11/12/22 11/12/22 11/13/22 Range/Units 16:31 19:58 05:49 POC Glucose (mg/dL) 182 H 123 H 134 H (70-110) mg/dL 11/13/22 Range/Units 11:33 POC Glucose (mg/dL) 123 H (70-110) mg/dL Microbiology - Last 24 Hours (Table) 11/11/22 05:15 Blood Culture - Preliminary Blood No Growth after 48 hours 11/11/22 05:25 Blood Culture - Preliminary Blood No Growth after 48 hours
[2022-11-13 14:05] VITALS: PULSE 84; RESP 16
== END 2022-11-13 17:08 | disposition home health service (06) | DRG 64 ==
LOC: EC 00:13 → 4SSUR 04:08 → 3SCARD 15:20
PROVIDERS: ADMIT Internal Medicine; ATTEND Internal Medicine
DX: I63.9 Cerebral infarction, unspecified (principal); G93.41 Metabolic encephalopathy; F05 Delirium due to known physiological condition; I48.0 Paroxysmal atrial fibrillation; I10 Essential (primary) hypertension; E11.42 Type 2 diabetes mellitus with diabetic polyneuropathy; E66.9 Obesity, unspecified; Z68.31 Body mass index [BMI] 31.0-31.9, adult; E78.5 Hyperlipidemia, unspecified; E86.0 Dehydration; G25.81 Restless legs syndrome; G47.33 Obstructive sleep apnea (adult) (pediatric); G89.29 Other chronic pain; K21.9 Gastro-esophageal reflux disease without esophagitis; M10.00 Idiopathic gout, unspecified site; M17.0 Bilateral primary osteoarthritis of knee; M47.816 Spondylosis without myelopathy or radiculopathy, lumbar region; M79.7 Fibromyalgia; R29.810 Facial weakness; S00.81XA Abrasion of other part of head, initial encounter; W19.XXXA Unspecified fall, initial encounter; Z79.01 Long term (current) use of anticoagulants; Z79.82 Long term (current) use of aspirin; Z79.84 Long term (current) use of oral hypoglycemic drugs; Z79.899 Other long term (current) drug therapy; Z82.49 Family history of ischemic heart disease and other diseases of the circulatory system; Z86.711 Personal history of pulmonary embolism; Z86.73 Personal history of transient ischemic attack (TIA), and cerebral infarction without residual deficits; Z87.440 Personal history of urinary (tract) infections; Z91.83 Wandering in diseases classified elsewhere; Z88.1 Allergy status to other antibiotic agents; Z88.0 Allergy status to penicillin; Z88.8 Allergy status to other drugs, medicaments and biological substances
CPT/HCPCS: 36415; 70450; 71045; 80053; 81001; 82140; 83605; 84145; 84484; 85025; 85610; 85730; 87040; 93005; 93306; 93312; 93320; 93325; 93880; 94760; 95816; 96361; 96365; 96366; 96375; 99285

== ENCOUNTER 2022-12-03 13:00 | Emergency (ER) | payer MEDICARE, OTHER ==
[2022-12-03 13:15] VITALS: TEMP 97.7
[2022-12-03] MEDS ORDERED: ONDANSETRON 4 MG/2 ML VIAL IVP STA (15:00)
--- NOTE | 2022-12-03 15:07 | ED ---
General Adult HPI - General Chief complaint: Abdominal Pain Stated complaint: GI upset Time Seen by Provider: 12/03/22 14:34 Source: patient, RN notes reviewed Mode of arrival: wheelchair Limitations: no limitations - History of Present Illness Initial comments: 82-year-old female presents to the emergency department chief complaint of abdominal pain. She states that the pain started this morning and has been accompanied by diarrhea. She states that the pain is diffuse. Admits to nausea but no vomiting. She states that she has this pain every 6-7 days and it lasts for a day and then subsides. She states that the pain is in different locations each time it happens but mostly is diffuse. She states that it is always accompanied by diarrhea and occasionally vomiting. She states that she was just released from [facility] for rehab from a urinary tract infection. She states that she thought she was supposed to be discharged on antibiotics but she had not received any. States that she frequently gets urinary tract infections but denies frequency and dysuria. Denies fever. - Related Data Home Medications Medication Instructions Recorded Confirmed Baclofen [Lioresal] 10 mg PO TID PRN 09/21/20 12/03/22 Multivitamins, Thera [Multivitamin 1 tab PO DAILY 09/21/20 12/03/22 (formulary)] allopurinoL [Zyloprim] 100 mg PO DAILY 09/21/20 12/03/22 Acetaminophen Tab [Tylenol] 1,000 mg PO QID PRN 11/04/22 12/03/22 Cholecalciferol [Vitamin D3 (25 25 mcg PO DAILY 11/04/22 12/03/22 Mcg = 1000 Iu)] Diclofenac Sodium Gel [Voltaren 2 - 4 gm TOPICAL QID PRN 11/04/22 12/03/22 Gel] Famotidine 20 - 40 mg PO DAILY 11/04/22 12/03/22 L.acidoph,Paracasei, B.lactis 1 cap PO DAILY 11/04/22 12/03/22 [Probiotic] Losartan Potassium [Cozaar] 100 mg PO DAILY 11/04/22 12/03/22 Omeprazole [PriLOSEC] 20 mg PO DAILY 11/04/22 12/03/22 Ubidecarenone [Coenzyme Q10] 200 mg PO DAILY 11/04/22 12/03/22 Verapamil HCl [Verapamil ER] 120 mg PO BID 11/04/22 12/03/22 Vitamin B Complex 1 cap PO DAILY 11/04/22 12/03/22 hydroCHLOROthiazide 12.5 mg PO DAILY 11/04/22 12/03/22 Ciclopirox 1 applic TOPICAL DAILY 12/03/22 12/03/22 Dulaglutide [Trulicity] 0.75 mg SQ Q7D 12/03/22 12/03/22 metFORMIN HCL [Glucophage] 1,000 mg PO HS 12/03/22 12/03/22 Previous Rx's Medication Instructions Recorded Apixaban [Eliquis] 5 mg PO BID #60 tab 11/13/22 Dapagliflozin Propanediol [Farxiga] 5 mg PO DAILY #30 tab 11/13/22 HYDROcodone/APAP 10-325MG [[place] 1 tab PO QID PRN #12 tab 11/13/22 10-325] Pregabalin [Lyrica] 150 mg PO BID #6 cap 11/13/22 Allergies Allergy/AdvReac Type Severity Reaction Status Date / Time cephalexin [From Keflex] Allergy Rash/Hives Verified 12/03/22 17:06 clindamycin Allergy Rash/Hives Verified 12/03/22 17:06 Penicillins Allergy Unknown Verified 12/03/22 17:06 oxybutynin [From Ditropan] AdvReac Hallucinati Verified 12/03/22 17:06 ons Review of Systems ROS Statement: Those systems with pertinent positive or pertinent negative responses have been documented in the HPI. ROS Other: All systems not noted in ROS Statement are negative. Past Medical History Past Medical History: GERD/Reflux, Hypertension Additional Past Medical History / Comment(s): UTI, fibromylagia, respiroaty failure History of Any Multi-Drug Resistant Organisms: None Reported Past Surgical History: Back Surgery Additional Past Surgical History / Comment(s): 5 back surgery since 2014. Past Anesthesia/Blood Transfusion Reactions: No Reported Reaction Past Psychological History: No Psychological Hx Reported Smoking Status: Never smoker Past Alcohol Use History: None Reported Past Drug Use History: None Reported General Exam Limitations: no limitations General appearance: alert, in no apparent distress Head exam: Present: atraumatic, normocephalic, normal inspection Eye exam: Present: normal appearance ENT exam: Present: normal exam, mucous membranes moist Respiratory exam: Present: normal lung sounds bilaterally. Absent: respiratory distress, wheezes, rales, rhonchi, stridor Cardiovascular Exam: Present: regular rate, normal rhythm, normal heart sounds. Absent: systolic murmur, diastolic murmur, rubs, gallop, clicks GI/Abdominal exam: Present: soft, tenderness (RUQ), normal bowel sounds. Absent: distended, guarding, rebound, rigid Psychiatric exam: Present: normal affect, normal mood Skin exam: Present: warm, dry, intact, normal color. Absent: rash Course Vital Signs 12/03/22 12/03/22 13:10 18:39 Temperature 97.7 F Pulse Rate 96 74 Respiratory 20 16 Rate Blood Pressure 124/83 131/71 O2 Sat by Pulse 98 Oximetry Medical Decision Making - Medical Decision Making Was pt. sent in by a medical professional or institution (, PA, TRANSPORT NURSE, urgent care, hospital, or jail...) When possible be specific @ -No Did you speak to anyone other than the patient for history (EMS, parent, family, police, friend...)? What history was obtained from this source @ -No Did you review nursing and triage notes (agree or disagree)? Why? @ -I reviewed and agree with nursing and triage notes Were old charts reviewed (outside hosp., previous admission, EMS record, old EKG, old radiological studies, urgent care reports/EKG's, jail records)? Report findings @ -No old charts were reviewed Differential Diagnosis (chest pain, altered mental status, abdominal pain women, abdominal pain men, vaginal bleeding, weakness, fever, dyspnea, syncope, headache, dizziness, GI bleed, back pain, seizure, CVA, palpatations, mental health, musculoskeletal)? @ -Differential Abdominal Pain Women: Appendicitis, Cholecystitis, diverticulosis, ischemic bowel, pancreatitis, hepatitis, UTI, gastroenteritis, AAA, incarcerated hernia, bowel obstruction, constipation, inflammatory bowel, hepatitis, peptic ulcer disease, splenic infarction, perforated viscus, vulvitis, ovarian torsion, PID, kidney stone, placenta abruption, this is not meant to be an all-inclusive list EKG interpreted by me (3pts min.). @ -None X-rays interpreted by me (1pt min.). @ -None done CT interpreted by me (1pt min.). @ -None done U/S interpreted by me (1pt. min.). @ -Ultrasound abdomen limited hepatic steatosis, no acute process What testing was considered but not performed or refused? (CT, X-rays, U/S, labs)? Why? @ -None What meds were considered but not given or refused? Why? @ -None Did you discuss the management of the patient with other professionals (professionals i.e. Dr., PA, TRANSPORT NURSE, lab, RT, psych nurse, long term care social worker, control engineer, teacher, aoc director combat operations officer, leather case finisher)? Give summary @ -No Was smoking cessation discussed for >3mins.? @ -No Was critical care preformed (if so, how long)? @ -No Were there social determinants of health that impacted care today? How? (Homelessness, low income, unemployed, alcoholism, drug addiction, t ransportation, low edu. Level, literacy, decrease access to med. care, nursing home, rehab)? @ -No Was there de-escalation of care discussed even if they declined (Discuss DNR or withdrawal of care, Hospice)? DNR status @ -No What co-morbidities impacted this encounter? (DM, HTN, Smoking, COPD, CAD, Cancer, CVA, ARF, Chemo, Hep., AIDS, mental health diagnosis, sleep apnea, morbid obesity)? @ -None Was patient admitted / discharged? Hospital course, mention meds given and route, prescriptions, significant lab abnormalities, going to OR and other pertinent info. @ -Patient presented to the emergency department with abdominal pain and diarrhea. Patient requested tylenol for pain. CBC within normal limits, WBC 7.4, hgb 14.2 CMP Na142, potassium 4.2, BUN 23; UA showed negative nitrites, large blood, moderate leukocyte esterase. Patient states that she feels like she is being "brushed off" and thinks that there is something going on with her gallbladder. US abdomen limited obtained which showed hepatic steatosis, no acute process. Advised patient to follow up with her primary care doctor for outpatient workup of diarrhea. Case discussed with Dr. Gale. Patient discharged in stable condition. Undiagnosed new problem with uncertain prognosis? @ -No Drug Therapy requiring intensive monitoring for toxicity (Heparin, Nitro, Insulin, Cardizem)? @ -No Were any procedures done? @ -No Diagnosis/symptom? @ -abdominal pain Acute, or Chronic, or Acute on Chronic? @ -acute Uncomplicated (without systemic symptoms) or Complicated (systemic symptoms)? @ -uncomplicated Side effects of treatment? @ -No Exacerbation, Progression, or Severe Exacerbation? @ -No Poses a threat to life or bodily function? How? (Chest pain, [place], [place], pneumonia, PE, COPD, DKA, ARF, appy, cholecystitis, CVA, Diverticulitis, Homicidal, Suicidal, threat to staff... and all critical care pts) @ -No - Lab Data Result diagrams: 12/03/22 15:18 12/03/22 15:18 Lab Results 12/03/22 12/03/22 12/03/22 Range/Units 15:18 15:18 15:18 WBC 7.4 (3.8-10.6) k/uL RBC 4.86 (3.80-5.40) m/uL Hgb 14.2 (11.4-16.0) gm/dL Hct 43.7 (34.0-46.0) % MCV 90.0 (80.0-100.0) fL MCH 29.2 (25.0-35.0) pg MCHC 32.4 (31.0-37.0) g/dL RDW 15.0 (11.5-15.5) % Plt Count 192 (150-450) k/uL MPV 9.0 Neutrophils % 79 % Lymphocytes % 10 % Monocytes % 7 % Eosinophils % 1 % Basophils % 0 % Neutrophils # 5.9 (1.3-7.7) k/uL Lymphocytes # 0.8 L (1.0-4.8) k/uL Monocytes # 0.6 (0-1.0) k/uL Eosinophils # 0.1 (0-0.7) k/uL Basophils # 0.0 (0-0.2) k/uL Sodium 142 (137-145) mmol/L Potassium 4.2 (3.5-5.1) mmol/L Chloride 106 (98-107) mmol/L Carbon Dioxide 29 (22-30) mmol/L Anion Gap 7 mmol/L BUN 23 H (7-17) mg/dL Creatinine 1.02 (0.52-1.04) mg/dL Est GFR (CKD-EPI)AfAm 60 (>60 ml/min/1.73 sqM) Est GFR (CKD-EPI)NonAf 52 (>60 ml/min/1.73 sqM) Glucose 120 H (74-99) mg/dL Calcium 9.5 (8.4-10.2) mg/dL Total Bilirubin 0.4 (0.2-1.3) mg/dL AST 27 (14-36) U/L ALT 23 (4-34) U/L Alkaline Phosphatase 54 (38-126) U/L Total Protein 6.7 (6.3-8.2) g/dL Albumin 4.1 (3.5-5.0) g/dL Amylase 69 (30-110) U/L Lipase 160 (23-300) U/L Urine Color Yellow Urine Appearance Clear (Clear) Urine pH 5.5 (5.0-8.0) Ur Specific [place] 1.017 (1.001-1.035) Urine Protein Negative (Negative) Urine Glucose (UA) Negative (Negative) Urine Ketones Negative (Negative) Urine Blood Large H (Negative) Urine Nitrite Negative (Negative) Urine Bilirubin Negative (Negative) Urine Urobilinogen <2.0 (<2.0) mg/dL Ur Leukocyte Esterase Moderate H (Negative) Urine RBC >182 H (0-5) /hpf Urine WBC 13 H (0-5) /hpf Ur Squamous Epith Cells 4 (0-4) /hpf Urine Bacteria Moderate H (None) /hpf Urine Mucus Rare H (None) /hpf Disposition Clinical Impression: Abdominal pain Disposition: HOME SELF-CARE Condition: Stable Instructions (If sedation given, give patient instructions): Abdominal Pain (ED) Additional Instructions: Please follow up with your primary care doctor in 1-2 days. Please return to the Emergency Department if symptoms worsen or any other concerns. Is patient prescribed a controlled substance at d/c from ED?: No Referrals: Olya Austin MD [Primary Care Provider] - 1-2 days Time of Disposition: 19:09
[2022-12-03] MEDS ORDERED: ACETAMINOPHEN TAB 500 MG TAB PO STA (15:17)
[2022-12-03 15:32] LABS: Basophils % (A) 0 %; Eosinophils # (A) 0.1 k/uL (0-0.7); Eosinophils % (A) 1 %; HCT 43.7 % (34.0-46.0); HGB 14.2 gm/dL (11.4-16.0); Lymphocytes # (A) 0.8 k/uL (1.0-4.8); Lymphocytes % (A) 10 %; MCH 29.2 pg (25.0-35.0); MCHC 32.4 g/dL (31.0-37.0); Monocytes # (A) 0.6 k/uL (0-1.0); Monocytes % (A) 7 %; Neutrophils # (A) 5.9 k/uL (1.3-7.7); Neutrophils % (A) 79 %; Platelet Count 192 k/uL (150-450); RBC 4.86 m/uL (3.80-5.40); WBC 7.4 k/uL (3.8-10.6)
[2022-12-03 15:49] LABS: Albumin 4.1 g/dL (3.5-5.0); Calcium 9.5 mg/dL (8.4-10.2); Potassium 4.2 mmol/L (3.5-5.1); Total Bilirubin 0.4 mg/dL (0.2-1.3); Total Protein 6.7 g/dL (6.3-8.2)
[2022-12-03 17:31] LABS: Appearance,Urine Clear (Clear); Bacteria,Urine Moderate /hpf; Bilirubin,Urine Negative (Negative); Blood,Urine Large (Negative); Color,Urine Yellow; Glucose,Urine (UA) Negative (Negative); Ketones,Urine Negative (Negative); Leukocyte Esterase,Urine Moderate (Negative); Mucus,Urine Rare /hpf; Nitrite,Urine Negative (Negative); PH, Urine 5.5 (5.0-8.0); Protein,Urine Negative (Negative); RBC,Urine >182 /hpf (0-5); Specific Gravity,Urine 1.017 (1.001-1.035); Squamous Epithelial Cell,Urine 4 /hpf (0-4); Urobilinogen,Urine <2.0 mg/dL (<2.0); WBC,Urine 13 /hpf (0-5)
[2022-12-03 18:41] VITALS: RESP 16
--- NOTE | 2022-12-03 18:55 | US ---
EXAMINATION TYPE: US abdomen limited DATE OF EXAM: 12/03/2022 COMPARISON: NONE CLINICAL INDICATION: Female, 82 years old with history of RUQ pain; RUQ pain with nausea TECHNIQUE: Multiple sonographic images of the right upper quadrant are obtained. FINDINGS: EXAM MEASUREMENTS: Liver Length: 11.4 cm Gallbladder Wall: 0.16 cm CBD: 0.46 cm Right Kidney: 9.7 x 4.6 x 4.6 cm Pancreas: Obscured by bowel gas Liver: Heterogeneous with increased echotexture. Gallbladder: wnl Evidence for sonographic Rodriguez's sign: No CBD: wnl Right Kidney: wnl IMPRESSION: 1. Hepatic steatosis. 2. No evidence for acute process.
[2022-12-03 19:33] VITALS: BP 168/94; PULSE 68
== END 2022-12-03 20:00 | disposition home or self-care (01) ==
LOC: EC 13:00
DX: R10.11 Right upper quadrant pain (principal); K21.9 Gastro-esophageal reflux disease without esophagitis; I10 Essential (primary) hypertension; Z88.0 Allergy status to penicillin; Z88.1 Allergy status to other antibiotic agents; Z88.8 Allergy status to other drugs, medicaments and biological substances; Z79.899 Other long term (current) drug therapy
CPT/HCPCS: 36415; 80053; 82150; 83690; 85025; 81001; 76705; 99284; 96374; J2405

== ENCOUNTER 2023-01-03 11:23 | Inpatient (IN) | payer MEDICARE, OTHER ==
[2023-01-03 11:51] LABS: Glucose,Whole Blood 127 mg/dL (70-110)
--- NOTE | 2023-01-03 11:51 | ED ---
General Adult HPI - General Chief complaint: Altered Mental Status Stated complaint: AMS Time Seen by Provider: 01/03/23 11:30 Source: patient, RN notes reviewed Mode of arrival: ambulatory Limitations: altered mental status - History of Present Illness Initial comments: Patient is a pleasant 82-year-old female presenting to the emergency department with concerns for change in mental status. Daughter apparently spoke with her yesterday and she was acting fine. Patient had therapy come out today and patient was drowsy. Patient is sleeping in bed. Patient is arousable to loud voice or touch and states she just feels tired. Further history is limited. Patient reportedly does have history of similar symptoms previously associated with urinary tract infections - Related Data Home Medications Medication Instructions Recorded Confirmed Baclofen [Lioresal] 10 mg PO TID PRN 09/21/20 12/03/22 Multivitamins, Thera [Multivitamin 1 tab PO DAILY 09/21/20 12/03/22 (formulary)] allopurinoL [Zyloprim] 100 mg PO DAILY 09/21/20 12/03/22 Acetaminophen Tab [Tylenol] 1,000 mg PO QID PRN 11/04/22 12/03/22 Cholecalciferol [Vitamin D3 (25 25 mcg PO DAILY 11/04/22 12/03/22 Mcg = 1000 Iu)] Diclofenac Sodium Gel [Voltaren 2 - 4 gm TOPICAL QID PRN 11/04/22 12/03/22 Gel] Famotidine 20 - 40 mg PO DAILY 11/04/22 12/03/22 L.acidoph,Paracasei, B.lactis 1 cap PO DAILY 11/04/22 12/03/22 [Probiotic] Losartan Potassium [Cozaar] 100 mg PO DAILY 11/04/22 12/03/22 Omeprazole [PriLOSEC] 20 mg PO DAILY 11/04/22 12/03/22 Ubidecarenone [Coenzyme Q10] 200 mg PO DAILY 11/04/22 12/03/22 Verapamil HCl [Verapamil ER] 120 mg PO BID 11/04/22 12/03/22 Vitamin B Complex 1 cap PO DAILY 11/04/22 12/03/22 hydroCHLOROthiazide 12.5 mg PO DAILY 11/04/22 12/03/22 Ciclopirox 1 applic TOPICAL DAILY 12/03/22 12/03/22 Dulaglutide [Trulicity] 0.75 mg SQ Q7D 12/03/22 12/03/22 metFORMIN HCL [Glucophage] 1,000 mg PO HS 12/03/22 12/03/22 Previous Rx's Medication Instructions Recorded Apixaban [Eliquis] 5 mg PO BID #60 tab 11/13/22 Dapagliflozin Propanediol [Farxiga] 5 mg PO DAILY #30 tab 11/13/22 HYDROcodone/APAP 10-325MG [[place] 1 tab PO QID PRN #12 tab 11/13/22 10-325] Pregabalin [Lyrica] 150 mg PO BID #6 cap 11/13/22 Allergies Allergy/AdvReac Type Severity Reaction Status Date / Time cephalexin [From Keflex] Allergy Rash/Hives Verified 01/03/23 11:32 clindamycin Allergy Rash/Hives Verified 01/03/23 11:32 Penicillins Allergy Unknown Verified 01/03/23 11:32 oxybutynin [From Ditropan] AdvReac Hallucinati Verified 01/03/23 11:32 ons Review of Systems ROS Statement: Those systems with pertinent positive or pertinent negative responses have been documented in the HPI. ROS Other: All systems not noted in ROS Statement are negative. Constitutional: Denies: fever ENT: Denies: ear pain Respiratory: Denies: dyspnea Cardiovascular: Denies: chest pain Gastrointestinal: Denies: abdominal pain Genitourinary: Denies: dysuria Musculoskeletal: Denies: back pain Neurological: Denies: headache Past Medical History Past Medical History: Diabetes Mellitus, GERD/Reflux, Hypertension Additional Past Medical History / Comment(s): UTI, fibromylagia, respiroaty failure History of Any Multi-Drug Resistant Organisms: None Reported Past Surgical History: Back Surgery Additional Past Surgical History / Comment(s): 5 back surgery since 2014. Past Anesthesia/Blood Transfusion Reactions: No Reported Reaction Past Psychological History: No Psychological Hx Reported Smoking Status: Never smoker Past Alcohol Use History: None Reported Past Drug Use History: None Reported General Exam Limitations: no limitations General appearance: in no apparent distress, other (Drowsy) Head exam: Present: atraumatic Eye exam: Present: normal appearance, PERRL, EOMI ENT exam: Present: normal oropharynx Neck exam: Present: normal inspection. Absent: tenderness, meningismus Respiratory exam: Present: normal lung sounds bilaterally Cardiovascular Exam: Present: regular rate, normal rhythm GI/Abdominal exam: Present: soft. Absent: tenderness Back exam: Present: normal inspection Neurological exam: Present: altered, CN II-XII intact Expanded Neurological exam: Present: protecting the airway Patient oriented to: Present: person Motor strength exam: RUE: 5, LUE: 5, RLE: 3, LLE: 3 Eye Response: (3) open to voice Motor Response: (6) obeys commands Verbal Response: (4) confused conversation Psychiatric exam: Present: flat affect Skin exam: Present: normal color Course Vital Signs 01/03/23 01/03/23 01/03/23 11:25 11:40 11:50 Temperature 97.3 F L Pulse Rate 78 58 L 59 L Respiratory 18 9 L 7 L Rate Blood Pressure 186/86 186/86 192/96 O2 Sat by Pulse 99 100 98 Oximetry 01/03/23 01/03/23 01/03/23 12:00 12:10 12:20 Temperature Pulse Rate 61 58 L Respiratory 18 18 Rate Blood Pressure 192/96 190/93 190/93 O2 Sat by Pulse 98 98 Oximetry 01/03/23 01/03/23 01/03/23 12:30 12:40 12:50 Temperature Pulse Rate 58 L 70 Respiratory 18 18 Rate Blood Pressure 190/93 190/93 190/93 O2 Sat by Pulse Oximetry 01/03/23 13:00 Temperature Pulse Rate 59 L Respiratory 18 Rate Blood Pressure 190/93 O2 Sat by Pulse Oximetry EKG Findings - EKG Results: EKG: interpreted by ERMD (Artifact present in multiple leads), sinus rhythm, normal axis, normal QRS, normal ST/T Medical Decision Making - Medical Decision Making Was pt. sent in by a medical professional or institution (, PA, HOSPITAL INSURANCE CLERK, urgent care, hospital, or assisted...) When possible be specific @ -Patient was sent from care facility Did you speak to anyone other than the patient for history (EMS, parent, family, police, friend...)? What history was obtained from this source @ -No Did you review nursing and triage notes (agree or disagree)? Why? @ -I reviewed and agree with nursing and triage notes Were old charts reviewed (outside hosp., previous admission, EMS record, old EKG, old radiological studies, urgent care reports/EKG's, assisted records)? Report findings @ -Reviewed previous medications received including penicillin and Rocephin Differential Diagnosis (chest pain, altered mental status, abdominal pain women, abdominal pain men, vaginal bleeding, weakness, fever, dyspnea, syncope, headache, dizziness, GI bleed, back pain, seizure, CVA, palpatations, mental health)? @ -Differential Altered Mental Status: Hypoglycemia, DKA, hypercapnia, ETOH, overdose, CO poisoning, trauma, myxedema coma, HTN encephalopathy, infection, encephalitis, psychosis, intercranial hemorrhage, hepatic encephalopathy, meningitis, CVA, this is not meant to be an all-inclusive list EKG interpreted by me (3pts min.). @ -As above X-rays interpreted by me (1pt min.). @ -Chest x-ray does have some concern for cephalization/CHF CT interpreted by me (1pt min.). @ -None done U/S interpreted by me (1pt. min.). @ -None done What testing was considered but not performed or refused? (CT, X-rays, U/S, labs)? Why? @ -BNP will need to be added What meds were considered but not given or refused? Why? @ -None Did you discuss the management of the patient with other professionals (professionals i.e. , PA, HOSPITAL INSURANCE CLERK, lab, RT, psych nurse, web content & social media manager, instructional design manager, teacher, boat officer, cyanide case hardener)? Give summary @ -Case was discussed with Dr. Austin, who will admit his patient Was smoking cessation discussed for >3mins.? @ -No Was critical care preformed (if so, how long)? @ -No Were there social determinants of health that impacted care today? How? (Homelessness, low income, unemployed, alcoholism, drug addiction, transportation, low edu. Level, literacy, decrease access to med. care, nursing home, rehab)? @ -No Was there de-escalation of care discussed even if they declined (Discuss DNR or withdrawal of care, Hospice)? DNR status @ -No What co-morbidities impacted this encounter? (DM, HTN, Smoking, COPD, CAD, Cancer, CVA, ARF, Chemo, Hep., AIDS, mental health diagnosis, sleep apnea, morbid obesity)? @ - Was patient admitted / discharged? Hospital course, mention meds given and route, prescriptions, significant lab abnormalities, going to OR and other pertinent info. @ -Patient reevaluated and unchanged. Patient will be admitted for treatment for urinary tract infection and monitoring. BNP will be added. Patient did receive a dose of Lasix secondary to suspicion for some mild CHF as well as hypertension Undiagnosed new problem with uncertain prognosis? @ -No Drug Therapy requiring intensive monitoring for toxicity (Heparin, Nitro, Insulin, Cardizem)? @ -No Were any procedures done? @ -No Diagnosis/symptom? @ -Altered mental status, UTI Acute, or Chronic, or Acute on Chronic? @ -Acute, acute Uncomplicated (without systemic symptoms) or Complicated (systemic symptoms)? @ -default Side effects of treatment? @ -No Exacerbation, Progression, or Severe Exacerbation? @ -No Poses a threat to life or bodily function? How? (Chest pain, [place], [place], pneumonia, PE, COPD, DKA, ARF, appy, cholecystitis, CVA, Diverticulitis, Homicidal, Suic idal, threat to staff... and all critical care pts) @ -No - Lab Data Result diagrams: 01/03/23 11:53 01/03/23 11:53 Lab Results 01/03/23 01/03/23 01/03/23 Range/Units 11:50 11:53 11:53 WBC 5.3 (3.8-10.6) k/uL RBC 4.72 (3.80-5.40) m/uL Hgb 14.1 (11.4-16.0) gm/dL Hct 44.1 (34.0-46.0) % MCV 93.4 (80.0-100.0) fL MCH 29.8 (25.0-35.0) pg MCHC 31.9 (31.0-37.0) g/dL RDW 14.5 (11.5-15.5) % Plt Count 236 (150-450) k/uL MPV 8.8 Neutrophils % 70 % Lymphocytes % 14 % Monocytes % 10 % Eosinophils % 2 % Basophils % 1 % Neutrophils # 3.7 (1.3-7.7) k/uL Lymphocytes # 0.8 L (1.0-4.8) k/uL Monocytes # 0.5 (0-1.0) k/uL Eosinophils # 0.1 (0-0.7) k/uL Basophils # 0.0 (0-0.2) k/uL Hypochromasia Slight PT 10.5 (9.0-12.0) sec INR 1.0 (<1.2) APTT 22.9 (22.0-30.0) sec Sodium (137-145) mmol/L Potassium (3.5-5.1) mmol/L Chloride (98-107) mmol/L Carbon Dioxide (22-30) mmol/L Anion Gap mmol/L BUN (7-17) mg/dL Creatinine (0.52-1.04) mg/dL Est GFR (CKD-EPI)AfAm (>60 ml/min/1.73 sqM) Est GFR (CKD-EPI)NonAf (>60 ml/min/1.73 sqM) Glucose (74-99) mg/dL POC Glucose (mg/dL) 127 H (70-110) mg/dL POC Glu [employer] Manager ID Jonathan Fuentes Calcium (8.4-10.2) mg/dL Total Bilirubin (0.2-1.3) mg/dL AST (14-36) U/L ALT (4-34) U/L Alkaline Phosphatase (38-126) U/L Troponin I (0.000-0.034) ng/mL Total Protein (6.3-8.2) g/dL Albumin (3.5-5.0) g/dL Urine Color Urine Appearance (Clear) Urine pH (5.0-8.0) Ur Specific [place] (1.001-1.035) Urine Protein (Negative) Urine Glucose (UA) (Negative) Urine Ketones (Negative) Urine Blood (Negative) Urine Nitrite (Negative) Urine Bilirubin (Negative) Urine Urobilinogen (<2.0) mg/dL Ur Leukocyte Esterase (Negative) Urine RBC (0-5) /hpf Urine WBC (0-5) /hpf Urine WBC Clumps (None) /hpf Ur Squamous Epith Cells (0-4) /hpf Urine Bacteria (None) /hpf Hyaline Casts (0-2) /lpf Urine Mucus (None) /hpf 01/03/23 01/03/23 01/03/23 Range/Units 11:53 11:53 12:51 WBC (3.8-10.6) k/uL RBC (3.80-5.40) m/uL Hgb (11.4-16.0) gm/dL Hct (34.0-46.0) % MCV (80.0-100.0) fL MCH (25.0-35.0) pg MCHC (31.0-37.0) g/dL RDW (11.5-15.5) % Plt Count (150-450) k/uL MPV Neutrophils % % Lymphocytes % % Monocytes % % Eosinophils % % Basophils % % Neutrophils # (1.3-7.7) k/uL Lymphocytes # (1.0-4.8) k/uL Monocytes # (0-1.0) k/uL Eosinophils # (0-0.7) k/uL Basophils # (0-0.2) k/uL Hypochromasia PT (9.0-12.0) sec INR (<1.2) APTT (22.0-30.0) sec Sodium 144 (137-145) mmol/L Potassium 4.2 (3.5-5.1) mmol/L Chloride 108 H (98-107) mmol/L Carbon Dioxide 25 (22-30) mmol/L Anion Gap 11 mmol/L BUN 28 H (7-17) mg/dL Creatinine 1.40 H (0.52-1.04) mg/dL Est GFR (CKD-EPI)AfAm 41 (>60 ml/min/1.73 sqM) Est GFR (CKD-EPI)NonAf 36 (>60 ml/min/1.73 sqM) Glucose 126 H (74-99) mg/dL POC Glucose (mg/dL) (70-110) mg/dL POC Glu [employer] Manager ID Calcium 9.1 (8.4-10.2) mg/dL Total Bilirubin 0.4 (0.2-1.3) mg/dL AST 30 (14-36) U/L ALT 24 (4-34) U/L Alkaline Phosphatase 49 (38-126) U/L Troponin I <0.012 (0.000-0.034) ng/mL Total Protein 6.3 (6.3-8.2) g/dL Albumin 3.8 (3.5-5.0) g/dL Urine Color Dark Yellow Urine Appearance Cloudy H (Clear) Urine pH 5.5 (5.0-8.0) Ur Specific [place] 1.029 (1.001-1.035) Urine Protein 1+ H (Negative) Urine Glucose (UA) 2+ H (Negative) Urine Ketones Negative (Negative) Urine Blood Large H (Negative) Urine Nitrite Positive H (Negative) Urine Bilirubin Negative (Negative) Urine Urobilinogen <2.0 (<2.0) mg/dL Ur Leukocyte Esterase Large H (Negative) Urine RBC >182 H (0-5) /hpf Urine WBC 23 H (0-5) /hpf Urine WBC Clumps Moderate H (None) /hpf Ur Squamous Epith Cells 2 (0-4) /hpf Urine Bacteria Occasional H (None) /hpf Hyaline Casts 42 H (0-2) /lpf Urine Mucus Occasional H (None) /hpf Disposition Clinical Impression: Altered mental status, UTI (urinary tract infection) Disposition: ADMITTED IP TO THIS HOSP Is patient prescribed a controlled substance at d/c from ED?: No Referrals: Olya Austin MD [Primary Care Provider] - 1-2 days Time of Disposition: 13:32
[2023-01-03 12:21] LABS: Partial Thromboplastin Time 22.9 sec (22.0-30.0); Prothrombin Time 10.5 sec (9.0-12.0)
[2023-01-03 12:24] LABS: Albumin 3.8 g/dL (3.5-5.0); Calcium 9.1 mg/dL (8.4-10.2); Potassium 4.2 mmol/L (3.5-5.1); Total Bilirubin 0.4 mg/dL (0.2-1.3); Total Protein 6.3 g/dL (6.3-8.2)
[2023-01-03 12:28] LABS: Basophils % (A) 1 %; Eosinophils # (A) 0.1 k/uL (0-0.7); Eosinophils % (A) 2 %; HCT 44.1 % (34.0-46.0); HGB 14.1 gm/dL (11.4-16.0); Hypochromasia Slight; Lymphocytes # (A) 0.8 k/uL (1.0-4.8); Lymphocytes % (A) 14 %; MCH 29.8 pg (25.0-35.0); MCHC 31.9 g/dL (31.0-37.0); MCV 93.4 fL (80.0-100.0); Mean Platelet Volume 8.8; Monocytes # (A) 0.5 k/uL (0-1.0); Monocytes % (A) 10 %; Neutrophils # (A) 3.7 k/uL (1.3-7.7); Neutrophils % (A) 70 %; Platelet Count 236 k/uL (150-450); RBC 4.72 m/uL (3.80-5.40); RDW 14.5 % (11.5-15.5); WBC 5.3 k/uL (3.8-10.6)
--- NOTE | 2023-01-03 12:30 | XR ---
EXAMINATION TYPE: XR chest 2V DATE OF EXAM: 01/03/2023 COMPARISON: Chest x-ray November 12, 2022 HISTORY: Altered mental status and weakness. TECHNIQUE: Frontal and lateral views of the chest are obtained. FINDINGS: There is mild cardiomegaly and low lung volumes with increased interstitial markings. No p leural effusion or pneumothorax seen bilaterally. Thoracic spinal stimulator is present. Underlying s coliosis is seen.. IMPRESSION: Possible CHF exacerbation. Mild cardiomegaly with suspected mild interstitial edema. Cor relate clinically.
--- NOTE | 2023-01-03 12:47 | CT ---
EXAMINATION TYPE: CT brain wo con DATE OF EXAM: 01/03/2023 HISTORY: AMS CT DLP: 1143.4 mGycm. Automated Exposure Control for Dose Reduction was Utilized. TECHNIQUE: CT scan of the head is performed without contrast. COMPARISON: CT brain November 11, 2022. FINDINGS: There is no acute intracranial hemorrhage or midline shift identified. There is mild to m oderate diffuse ventricular and sulcal prominence redemonstrated. There is mild low-attenuation in t he periventricular white matter surrounding the frontal horns redemonstrated. The globes are intact and the visualized sinuses are clear. IMPRESSION: No acute intracranial hemorrhage or midline shift. There is mild to moderate diffuse ce rebral atrophy and mild chronic small vessel ischemic change redemonstrated. No significant change f rom recent prior CT.
[2023-01-03 13:04] LABS: Appearance,Urine Cloudy (Clear); Bacteria,Urine Occasional /hpf; Bilirubin,Urine Negative (Negative); Blood,Urine Large (Negative); Color,Urine Dark Yellow; Glucose,Urine (UA) 2+ (Negative); Hyaline Casts,Urine 42 /lpf (0-2); Ketones,Urine Negative (Negative); Leukocyte Esterase,Urine Large (Negative); Mucus,Urine Occasional /hpf; Nitrite,Urine Positive (Negative); PH, Urine 5.5 (5.0-8.0); Protein,Urine 1+ (Negative); RBC,Urine >182 /hpf (0-5); Specific Gravity,Urine 1.029 (1.001-1.035); Squamous Epithelial Cell,Urine 2 /hpf (0-4); Urobilinogen,Urine <2.0 mg/dL (<2.0); WBC,Urine 23 /hpf (0-5)
[2023-01-03] MEDS ORDERED: FUROSEMIDE 10 MG/ML 4 ML VIAL IV STA (13:14)
[2023-01-03] MEDS ORDERED: ACETAMINOPHEN TAB 325 MG TAB PO PRN (13:36)
[2023-01-03] MEDS ORDERED: NALOXONE 0.4 MG/ML 1 ML VIAL IV PRN (13:36)
[2023-01-03] MEDS ORDERED: LEVOFLOXACIN 500MG-D5W PMX 500 MG in DEXTROSE/WATER 1 100ML.BAG IVPB SCH (14:00)
[2023-01-03] MEDS ORDERED: ACETAMINOPHEN TAB 500 MG TAB PO PRN (14:59)
[2023-01-03] MEDS ORDERED: FAMOTIDINE 20 MG TAB PO SCH (15:00)
[2023-01-03] MEDS ORDERED: IOPAMIDOL CONTRAST (ORAL USE) VIAL PO PRN (15:03)
[2023-01-03] MEDS: FAMOTIDINE 20 MG TAB PO SCH (17:12)
--- NOTE | 2023-01-03 17:15 | P.CNNES ---
History of Present Illness Consult date: 01/03/23 Requesting physician: Olya Austin Reason for Consult: possible TIA History of Present Illness: This is an 82-year-old woman with history of TIA, diabetes mellitus, hypertension, UTI who presented emergency department because of altered mental status. The history is obtained from her record. According to the patient she stated that today she was evaluated by the nurse and she was confused and patient feels her speech is off. Otherwise she denies of any focal weakness numbness difficulty swallowing. Patient stated that she has history of TIAs but cannot tell me what medication she is on. She denies that she is on aspirin, Plavix but again she does not recall the name. Per medical records, her previous medication is eliquis and unsure if she is still on it. Per the ED notes her daughter spoke with her yesterday and she was acting fine and it seemed that she had therapy today and was drowsy and was sleeping in bed. Upon speaking to the patient nurse on the floor she stated that the patient's mentation has been improving compared to initial presentation. Some of the workup during his hospital visit consisted of: Patient is afebrile. CBC with differential is unremarkable Initial loss serum glucose is 126. The creatinine is 1.40. Plasma lactic acid vein is 1.6. ACL days within normal limits Urinalysis seems suggestive of underlying urinary tract infection. CT of the head is reported as no acute intracranial hemorrhage or midline shift. There is mild to moderate diffuse cerebral atrophy and mild chronic small vessel ischemic changes redemonstrated. No significant change from recent prior CT. Personally reviewed the CT of the head and there is no acute or subacute ischemia Review of Systems Review of system: The 12 point system was reviewed and apparent positive and negative per HPI. Past Medical History Past Medical History: Diabetes Mellitus, GERD/Reflux, Hypertension Additional Past Medical History / Comment(s): UTI, fibromylagia, respiroaty failure History of Any Multi-Drug Resistant Organisms: None Reported Past Surgical History: Back Surgery Additional Past Surgical History / Comment(s): 5 back surgery since 2014. Past Anesthesia/Blood Transfusion Reactions: No Reported Reaction Past Psychological History: No Psychological Hx Reported Smoking Status: Never smoker Past Alcohol Use History: None Reported Past Drug Use History: None Reported Medications and Allergies Home Medications Medication Instructions Recorded Confirmed Type Baclofen [Lioresal] 10 mg PO TID PRN 09/21/20 01/03/23 History allopurinoL [Zyloprim] 100 mg PO DAILY 09/21/20 01/03/23 History Acetaminophen Tab [Tylenol] 1,000 mg PO QID PRN 11/04/22 01/03/23 History Cholecalciferol [Vitamin D3 (25 25 mcg PO DAILY 11/04/22 01/03/23 History Mcg = 1000 Iu)] Famotidine 20 - 40 mg PO HS PRN 11/04/22 01/03/23 History L.acidoph,Paracasei, B.lactis 1 cap PO DAILY 11/04/22 01/03/23 History [Probiotic] Losartan Potassium [Cozaar] 100 mg PO DAILY 11/04/22 01/03/23 History Omeprazole [PriLOSEC] 40 mg PO DAILY 11/04/22 01/03/23 History Ubidecarenone [Coenzyme Q10] 200 mg PO DAILY 11/04/22 01/03/23 History Vitamin B Complex 1 cap PO DAILY 11/04/22 01/03/23 History hydroCHLOROthiazide 12.5 mg PO DAILY 11/04/22 01/03/23 History Apixaban [Eliquis] 5 mg PO BID #60 tab 11/13/22 01/03/23 Rx Dapagliflozin Propanediol [Farxiga] 5 mg PO DAILY #30 tab 11/13/22 01/03/23 Rx HYDROcodone/APAP 10-325MG [[place] 1 tab PO QID PRN #12 tab 11/13/22 01/03/23 Rx 10-325] Pregabalin [Lyrica] 150 mg PO BID #6 cap 11/13/22 01/03/23 Rx Atorvastatin [Lipitor] 40 mg PO HS 01/03/23 01/03/23 History DULoxetine HCL [Cymbalta] 60 mg PO DAILY 01/03/23 01/03/23 History Multivit-Min/Iron/Folic/Lutein 1 tab PO DAILY 01/03/23 01/03/23 History [Centrum Silver Women Tablet] Allergies Allergy/AdvReac Type Severity Reaction Status Date / Time cephalexin [From Keflex] Allergy Rash/Hives Verified 01/03/23 13:56 clindamycin Allergy Rash/Hives Verified 01/03/23 13:56 Penicillins Allergy Unknown Verified 01/03/23 13:56 oxybutynin [From Ditropan] Verena Franklininati Verified 01/03/23 13:56 ons Physical Examination - Vital Signs Vital Signs: Vital Signs Temp Pulse Pulse Resp BP BP Pulse Ox 01/03/23 15:39 80 18 148/76 98 01/03/23 14:35 97.9 F 72 18 170/81 96 01/03/23 13:46 61 16 175/91 95 01/03/23 13:00 59 L 18 190/93 01/03/23 12:50 70 18 190/93 01/03/23 12:40 58 L 18 190/93 01/03/23 12:30 190/93 01/03/23 12:20 190/93 01/03/23 12:10 58 L 18 190/93 98 01/03/23 12:00 61 18 192/96 98 01/03/23 11:50 59 L 7 L 192/96 98 01/03/23 11:40 58 L 9 L 186/86 100 01/03/23 11:25 97.3 F L 78 18 186/86 99 Intake and Output 01/03/23 01/03/23 01/03/23 06:59 14:59 22:59 Other: Weight 87.543 kg GENERAL: The patient is lying in bed and is not in acute distress.. LUNG: Not labored breathing. NEUROLOGICAL: Higher mental function: The patient is awake, alert, oriented to self, place and time. Patient is following commands. No aphasia and no neglect. Cranial nerves: The pupils are round, equal and reactive to light. Visual schroeder are full to confrontation throughout. Extraocular movement is intact no nystagmus is noted. Facial sensation is normal to touch throughout. The facial strength is normal throughout. Hearing is moderately to severely decreased bilaterally to hand rub. Tongue is midline and moved [id number] without any difficulty. No dysarthria is noted. Shoulder shrug is normal bilaterally. Motor: The strength is 5 over 5 throughout uppers and lifts lowers above gravity without focality. Normal tone and bulk. Cerebellum: Normal finger to nose bilaterally. Sensation: Sensation is normal to touch throughout. Reflexes (right/left):1+ thorughout. Plantars are mute bilaterally. Results - Laboratory Findings CBC and BMP: 01/03/23 11:53 01/03/23 11:53 Abnormal Lab Findings: Abnormal Labs 01/03/23 01/03/23 01/03/23 11:50 11:53 11:53 Lymphocytes # 0.8 L Chloride 108 H BUN 28 H Creatinine 1.40 H Glucose 126 H POC Glucose (mg/dL) 127 H Urine Appearance Urine Protein Urine Glucose (UA) Urine Blood Urine Nitrite Ur Leukocyte Esterase Urine RBC Urine WBC Urine WBC Clumps Urine Bacteria Hyaline Casts Urine Mucus 01/03/23 12:51 Lymphocytes # Chloride BUN Creatinine Glucose POC Glucose (mg/dL) Urine Appearance Cloudy H Urine Protein 1+ H Urine Glucose (UA) 2+ H Urine Blood Large H Urine Nitrite Positive H Ur Leukocyte Esterase Large H Urine RBC >182 H Urine WBC 23 H Urine WBC Clumps Moderate H Urine Bacteria Occasional H Hyaline Casts 42 H Urine Mucus Occasional H Assessment and Plan Assessment: Altered mental status due to underlying likely acute urinary tract infection--mentation improving. Likely underlying acute UTI History of TIA Diabetes mellitus Hypertension History of multiple back surgeries since 2014 that's documented. Plan: If the patient continues to have confusion or any speech difficulty since patient's concerned that her speech is ?off then while we'll obtain an MRI of the brain to assess if there is any acute ischemia. And if further confusion will consider routine EEG to rule out underlying seizure or discharges. The patient is on her home dose of Eliquis 5mg bid and is on Lipitor 40mg qhs. I ordered TSH, vitamin B12, folate, ammonia level. Continue neuro checks We'll defer the rest of the medical management to primary team The plan was discussed with the patient and her nurse. Consultation Time with Patient: Greater than 30
--- NOTE | 2023-01-03 19:44 | CT ---
EXAMINATION TYPE: CT abdomen pelvis wo con DATE OF EXAM: 01/03/2023 COMPARISON: 09/22/2020 INDICATION: general abdominal pain DLP: 1148 mGycm, Automated exposure control for dose reduction was used. CONTRAST: 0 mL of Isovue 300. Study performed with Oral Contrast TECHNIQUE: Axial images were obtained from above the diaphragm to the pubic rami in the axial plane a t 5 mm thick sections. Reconstructed images are reviewed on the computer in the coronal plane. FINDINGS: Limited CT sections are obtained the lung bases. The lung bases are clear. Coronary artery calcific ation is present. CT ABDOMEN: Liver: Normal Spleen: Normal Pancreas: Normal Adrenal glands: The adrenal glands are normal. Gallbladder: Normal Kidneys: No masses are evident. No hydronephrosis is present. No cysts are present. No renal stone s are present. There may be some malrotation of the right kidney. Aorta: Vascular calcification is within the aorta. Inferior vena cava: Normal. CT PELVIS: Loops of bowel within the abdomen and pelvis are normal. There are loops of bowel which are inco mpletely distended or lack oral contrast limiting their evaluation. Appendix: Not visualized. No dilated tubular structure or inflammatory changes are evident. Urinary bladder: Normal. Genitourinary structures: Uterus and ovaries are not identified. Osseous structures: No suspicious lytic or sclerotic lesions. Scoliosis degenerative changes and prio r laminectomy through the lower lumbar spine are evident. Stimulator leads are within the thoracic re gion. IMPRESSIONS: 1. No suspicious acute abnormality to account for generalized abdominal pain.
[2023-01-03] MEDS: APIXABAN 5 MG TAB PO SCH (21:19)
[2023-01-03] MEDS: AZTREONAM 2 GM in SODIUM CHLORIDE 0.9% 100 ML IVPB SCH (21:19)
[2023-01-03] MEDS: ATORVASTATIN 40 MG TAB PO SCH (21:19)
--- NOTE | 2023-01-03 22:21 | P.CONS ---
History of Present Illness - Reason for Consult Consult date: 01/03/23 UTI with multiple antibiotic ALLERGIES Requesting physician: Yokasta Haider - Chief Complaint Mental status changes x one day - History of Present Illness Patient is a 82-year-old female with a past medical history seen for diabetes mellitus reflux hypertension UTI fibromyalgia patient was sent to the ER for evaluation of mental status changes patient symptoms Started the day of presentation to the hospital patient did have a PT OT at home and when the therapist showed up the patient was sleeping in bed and did not respond appropriately to the therapist apparently the patient mention she was not able to make her words patient denies having any headache or URI symptoms no chest pain shortness with cough no abdominal pain only diarrhea with the similar patient was sent to the ER for further evaluation on arrival to the ER the patient was afebrile and no fever has been cultured subsequently patient did have a normal white count. Has been mildly elevated enzymes are normal patient did have a significantly positive UA with large leukocyte Estrace more than 22 WBC concerning for a UTI patient was started on Levaquin because of her allergies infectious disease was consulted for further management of antibiotic therapy patient did have chest x- ray with possible CHF exacerbation mild cardiomegaly and interstitial infiltrate CT of the brain was negative for any bleed Review of Systems Positive point and negatives has been mentioned in the HPI, complete review of systems was performed and all other systems are negative Past Medical History Past Medical History: Diabetes Mellitus, GERD/Reflux, Hypertension Additional Past Medical History / Comment(s): UTI, fibromylagia, respiroaty failure History of Any Multi-Drug Resistant Organisms: None Reported Past Surgical History: Back Surgery Additional Past Surgical History / Comment(s): 5 back surgery since 2014. Past Anesthesia/Blood Transfusion Reactions: No Reported Reaction Past Psychological History: No Psychological Hx Reported Smoking Status: Never smoker Past Alcohol Use History: None Reported Past Drug Use History: None Reported Medications and Allergies Home Medications Medication Instructions Recorded Confirmed Type Baclofen [Lioresal] 10 mg PO TID PRN 09/21/20 01/03/23 History allopurinoL [Zyloprim] 100 mg PO DAILY 09/21/20 01/03/23 History Cholecalciferol [Vitamin D3 (25 25 mcg PO DAILY 11/04/22 01/03/23 History Mcg = 1000 Iu)] Famotidine 20 - 40 mg PO HS PRN 11/04/22 01/03/23 History L.acidoph,Paracasei, B.lactis 1 cap PO DAILY 11/04/22 01/03/23 History [Probiotic] Losartan Potassium [Cozaar] 100 mg PO DAILY 11/04/22 01/03/23 History Omeprazole [PriLOSEC] 40 mg PO DAILY 11/04/22 01/03/23 History Ubidecarenone [Coenzyme Q10] 200 mg PO DAILY 11/04/22 01/03/23 History Vitamin B Complex 1 cap PO DAILY 11/04/22 01/03/23 History hydroCHLOROthiazide 12.5 mg PO DAILY 11/04/22 01/03/23 History Apixaban [Eliquis] 5 mg PO BID #60 tab 11/13/22 01/03/23 Rx Dapagliflozin Propanediol [Farxiga] 5 mg PO DAILY #30 tab 11/13/22 01/03/23 Rx Atorvastatin [Lipitor] 40 mg PO HS 01/03/23 01/03/23 History DULoxetine HCL [Cymbalta] 60 mg PO DAILY 01/03/23 01/03/23 History Multivit-Min/Iron/Folic/Lutein 1 tab PO DAILY 01/03/23 01/03/23 History [Centrum Silver Women Tablet] Aztreonam [Azactam] 2 gm IVPB Q12HR each 01/08/23 Rx HYDROcodone/APAP 10-325MG [[place] 1 tab PO QID PRN #12 tab 01/08/23 Rx 10-325] Pregabalin [Lyrica] 150 mg PO BID #6 cap 01/08/23 Rx Allergies Allergy/AdvReac Type Severity Reaction Status Date / Time cephalexin [From Keflex] Allergy Rash/Hives Verified 01/03/23 13:56 clindamycin Allergy Rash/Hives Verified 01/03/23 13:56 Penicillins Allergy Unknown Verified 01/03/23 13:56 oxybutynin [From Ditropan] AdvReac Hallucinati Verified 01/03/23 13:56 ons Physical Exam Vitals: Vital Signs Temp Pulse Resp BP Pulse Ox 01/03/23 15:39 80 18 148/76 98 01/03/23 13:46 61 16 175/91 95 01/03/23 13:00 59 L 18 190/93 01/03/23 12:50 70 18 190/93 01/03/23 12:40 58 L 18 190/93 01/03/23 12:30 190/93 01/03/23 12:20 190/93 01/03/23 12:10 58 L 18 190/93 98 01/03/23 12:00 61 18 192/96 98 01/03/23 11:50 59 L 7 L 192/96 98 01/03/23 11:40 58 L 9 L 186/86 100 01/03/23 11:25 97.3 F L 78 18 186/86 99 Intake and Output 01/03/23 01/03/23 01/03/23 06:59 14:59 22:59 Other: Weight 87.543 kg GENERAL DESCRIPTION: Elderly female male lying in bed, no distress. No tachypnea or accessory muscle of respiration use. HEENT: Shows Pallor , no scleral icterus. Oral mucous membrane is dry. NECK: Trachea central, no thyromegaly. LUNGS: Unlabored breathing. Clear to auscultation anteriorly. No wheeze or crackle. HEART: S1, S2, regular rate and rhythm. No loud murmur ABDOMEN: Soft, no tenderness , guarding or rigidity, no organomegaly EXTREMITIES: No edema of feet. SKIN: No rash, no masses palpable. NEUROLOGICAL: The patient is awake, alert, oriented x2, mood and affect normal. Results CBC & Chem 7: 01/07/23 11:23 01/07/23 11:23 Labs: Abnormal Lab Results - Last 24 Hours (Table) 01/03/23 01/03/23 01/03/23 Range/Units 11:50 11:53 11:53 Lymphocytes # 0.8 L (1.0-4.8) k/uL Chloride 108 H (98-107) mmol/L BUN 28 H (7-17) mg/dL Creatinine 1.40 H (0.52-1.04) mg/dL Glucose 126 H (74-99) mg/dL POC Glucose (mg/dL) 127 H (70-110) mg/dL Urine Appearance (Clear) Urine Protein (Negative) Urine Glucose (UA) (Negative) Urine Blood (Negative) Urine Nitrite (Negative) Ur Leukocyte Esterase (Negative) Urine RBC (0-5) /hpf Urine WBC (0-5) /hpf Urine WBC Clumps (None) /hpf Urine Bacteria (None) /hpf Hyaline Casts (0-2) /lpf Urine Mucus (None) /hpf 01/03/23 Range/Units 12:51 Lymphocytes # (1.0-4.8) k/uL Chloride (98-107) mmol/L BUN (7-17) mg/dL Creatinine (0.52-1.04) mg/dL Glucose (74-99) mg/dL POC Glucose (mg/dL) (70-110) mg/dL Urine Appearance Cloudy H (Clear) Urine Protein 1+ H (Negative) Urine Glucose (UA) 2+ H (Negative) Urine Blood Large H (Negative) Urine Nitrite Positive H (Negative) Ur Leukocyte Esterase Large H (Negative) Urine RBC >182 H (0-5) /hpf Urine WBC 23 H (0-5) /hpf Urine WBC Clumps Moderate H (None) /hpf Urine Bacteria Occasional H (None) /hpf Hyaline Casts 42 H (0-2) /lpf Urine Mucus Occasional H (None) /hpf Assessment and Plan (1) Allergy to multiple antibiotics Current Visit: Yes Status: Acute Code(s): Z88.1 - ALLERGY STATUS TO OTHER ANTIBIOTIC AGENTS SNOMED Code(s): 267023795 (2) UTI (urinary tract infection) Current Visit: Yes Status: Acute Code(s): N39.0 - URINARY TRACT INFECTION, SITE NOT SPECIFIED SNOMED Code(s): 92286527 Plan: 1patient presented to hospital mental status changes which is likely multifactorial possible metabolic prerenal patient also have significantly positive UA underlying urinary source not an x-ray likely pulmonary gram- negative pathogen 2-patient with penicillin and cephalosporin allergy that would limit the number of antibiotics safe to use 3-discontinue Levaquin 4-start the patient on Azactam 2 g every 12 hours while waiting for the culture to finalize We will follow on clinical condition and cultures to further adjust medication if needed Thank you for this consultation we will follow the patient along with you Time with Patient: Greater than 30
[2023-01-04] MEDS: allopurinoL 100 MG TAB PO SCH (08:51)
[2023-01-04] MEDS: DULoxetine HCL 60 MG CAPSULE.DR PO SCH (08:51)
[2023-01-04] MEDS: LACTOBACILLUS ACIDOPH & BULGAR 1 EACH PACKET PO SCH (08:51)
[2023-01-04] MEDS: DAPAGLIFLOZIN PROPANEDIOL 5 MG TABLET PO SCH (08:51)
[2023-01-04] MEDS: PANTOPRAZOLE 40 MG TABLET PO SCH (08:51)
[2023-01-04] MEDS: LOSARTAN 50 MG TAB PO SCH (08:51)
[2023-01-04] MEDS: CHOLECALCIFEROL 25 MCG (1000 IU) TABLET PO SCH (08:51)
[2023-01-04] MEDS: APIXABAN 5 MG TAB PO SCH ×2 (08:51→21:59)
[2023-01-04] MEDS: AZTREONAM 2 GM in SODIUM CHLORIDE 0.9% 100 ML IVPB SCH ×2 (08:52→21:59)
[2023-01-04] MEDS: hydroCHLOROthiazide 12.5 MG CAP PO SCH (09:23)
[2023-01-04 10:13] LABS: African American GFR (CKD) 49.4 (60.0-200.0); Anion Gap 13.4 mmol/L (10.00-18.00); BUN/Creat Ratio 17.67 Ratio (12.00-20.00); Blood Urea Nitrogen 21.2 mg/dL (9.0-27.0); Calcium 9.2 mg/dL (8.7-10.3); Carbon Dioxide 28.6 mmol/L (20.0-27.5); Non-African American GFR(CKD) 42.6 (60.0-200.0); Potassium 4.5 mmol/L (3.5-5.5)
[2023-01-04 10:18] LABS: Basophils # (A) 0.02 X 10*3/uL (0.00-0.10); Basophils % (A) 0.3 %; Eosinophils # (A) 0.17 X 10*3/uL (0.04-0.35); Eosinophils % (A) 2.7 %; HCT 42.2 % (37.2-46.3); HGB 13.6 g/dL (12.0-15.0); Immature Grans, Automated 0.3 %; Lymphocytes # (A) 0.32 X 10*3/uL (0.90-5.00); Lymphocytes % (A) 5.1 %; MCH 29.8 pg (27.0-32.0); MCHC 32.2 g/dL (32.0-37.0); MCV 92.5 fL (80.0-97.0); Mean Platelet Volume 11.3 fL (9.5-12.2); Monocytes # (A) 0.56 X 10*3/uL (0.20-1.00); Monocytes % (A) 8.9 %; NRBC Per 100 WBC 0 /100 WBCS (0.0-0.0); Neutrophils # (A) 5.19 X 10*3/uL (1.80-7.70); Neutrophils % (A) 82.7 %; Platelet Count 213 X 10*3/uL (140-440); RBC 4.56 X 10*6/uL (4.10-5.20); RDW 14.9 % (11.5-14.5); WBC 6.28 X 10*3/uL (4.50-10.00)
--- NOTE | 2023-01-04 10:35 | P.HPIM ---
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 Patient was recently hospitalized at [facility] after she was admitted for metabolic encephalopathy due possible TIA/CVA and had paroxysmal atrial for ablation at that time she was seen in consultation by neurology as well as cardiology, patient apparently was in her usual state of health. Yesterday she woke up in the morning and she had breakfast and after that she became quite lethargic and unresponsive apparently she lives in assisted living facility, so they have contacted EMS brought the patient to the emergency department for evaluation, she was quite obtunded initially, she was given IV fluid resuscitation, she was found to have a urinary tract infection initially the working diagnosis was UTI with sepsis, triggering that on encephalopathy, however the patient stated that she was not able to find the appropriate words therefore she was treated like she is having a transient ischemic attack rule out acute ischemic event, computed tomography scan of the brain did not show evidence of acute infarct patient was admitted to the hospital she was started on IV antibiotic in the form of Azactam 2gr IVPB q 12 hours due to her multiple ALLERGIES, and due to her past culture that showed E. coli that is resistant to fluoroquinolones, patient was admitted to the hospital infectious disease consultation was obtained along with neurology consultation she was placed on neuro check around the clock. REVIEW OF SYSTEMS Constitutional: No fever, no chills, no night sweats. No weight change. No weakness, fatigue or lethargy. No daytime sleepiness. EENT: No headache. No blurred vision or double vision, no loss of vision. Chronic loss of Hearing, no ringing in the ears, no dizziness. No nasal drainage or congestion. No epistaxis. No sore throat. Lungs: No shortness of breath, cough, no sputum production. No wheezing. Cardiovascular: No chest pain, no lower extremity edema. No palpitations. No paroxysmal nocturnal dyspnea. No orthopnea. No lightheadedness or dizziness. No syncopal episodes. Abdominal: No abdominal pain. No nausea, vomiting. No diarrhea. No constipation. No bloody or tarry stools. No loss of appetite. Genitourinary: No dysuria, increased frequency, urgency. No urinary retention. Musculoskeletal: No myalgias. Noted muscle weakness, noted gait dysfunction, fall at home. No back pain. No neck pain. Integumentary: No wounds. No rash or pruritus. No unusual bruising. No change in hair or nails. Neurologic: Noted aphasia. No facial droop. Noted change in mentation. No head injury. No headache. No paralysis. No paresthesia. Psychiatric: No depression. No anxiety. No mood swings. Endocrine: No abnormal blood sugars. No weight change. No excessive sweating or thirst. No cold intolerance. 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 SURGICAL HISTORY Cataract surgery left 20/20 Tonsillectomy and adenoidectomy Laminectomy with fusion of L1-S1 Lumbar discitis post-hardware removal SI joint fusion 2 Spinal cord stimulator Seroma on the back post-wound VAC line colonoscopy with polyps 2017. SOCIAL HISTORY Patient is a lifelong nonsmoker, no alcohol abuse, no illicit drug use. FAMILY HISTORY Father at age 80. Mother at the age of 86 from myocardial infarction had history of hypertension, hyperlipidemia. Patient has one brother with no major medical problems and one sister with no major medical problems. Patient has 3 daughters with no major medical problems. PHYSICAL EXAMINATION Gen: This is an 82-year-old obese female. She is resting and appears to be comfortable and in no acute distress. HEENT: Head is atraumatic, normocephalic. Pupils equal, round. Sclerae is anicteric. NECK: Supple. No JVD. No lymphadenopathy. No thyromegaly. LUNGS: Clear to auscultation. No wheezes or rhonchi. No intercostal retractions. HEART: First heart sound is depressed, second heart sound is normal, 2/6 systolic ejection murmur at the left sternal border. ABDOMEN: Soft, mild tenderness to the epigastric area, no rebound or guarding positive bowel sounds EXTREMITIES: No pedal edema. No calf tenderness, DP+2 bilaterally NEUROLOGICAL: Patient is awake, alert and oriented to person and place, CN II- XII are grossly intact muscle power 4/5 in bilateral upper and lower extremities. ASSESSMENT AND PLAN 1. Metabolic encephalopathy secondary to UTI with sepsis. Rule out acute ischemic event. Continue patient on IV antibiotic in the form of Azactam 2 g of piggyback every 12 hours until the final cultures are back, continue IV fluid resuscitation the form of normal saline 75 mL an hour, monitor the patient very closely, infectious disease consultation as well as neuro consultation appreciated. 2. Paroxysmal Atrial fibrillation. we will continue with Eliquis 5 mg po bid and we will continue to monitor 3. Recent urinary tract infection. last one was E.Coli with Fluoroquinolone resistance, await the final results of cultures 4. Hypertensionand hypertensive cardiovascular disease. Resume patient on hydrochlorothiazide 12.5 mg daily. Continue patient on losartan 100 mg daily. 5. Hyperlipidemia. we will continue Atorvastatin 40 mg po daily 6. Diabetes mellitus type 2. Continue patient on add NovoLog scale before meals and at bedtime, we will continue wit Farxiga 5 mg po daily 7. Diabetic polyneuropathy. Continue Duloxetin 60 mg po daily 8. 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 Continue baclofen 10 mg 3 times daily as needed. 9. Idiopathic gout. Continue allopurinol 100 mg daily. 10. Obstructive sleep apnea. Continue CPAP. 11. GI prophylaxis and gastroesophageal reflux disease. Continue Protonix 40 mg po daily 12. DVT prophylaxis. we will continue with Protonix 40 mg po daily. 13. Abdominal pain. we will arrange for CT scan of the abdomen and pelvis with oral contrast . 14. Acute kidney injury likely due to ATN. we will continue with IVF and we will check CMP in am. 15. Admit to inpatient. Estimate a length of stay 2 midnights. 16. Patient is full code. Past Medical History Past Medical History: Diabetes Mellitus, GERD/Reflux, Hypertension Additional Past Medical History / Comment(s): UTI, fibromylagia, respiroaty failure History of Any Multi-Drug Resistant Organisms: None Reported Past Surgical History: Back Surgery Additional Past Surgical History / Comment(s): 5 back surgery since 2014. Past Anesthesia/Blood Transfusion Reactions: No Reported Reaction Past Psychological History: No Psychological Hx Reported Smoking Status: Never smoker Past Alcohol Use History: None Reported Past Drug Use History: None Reported Medications and Allergies Home Medications Medication Instructions Recorded Confirmed Type Baclofen [Lioresal] 10 mg PO TID PRN 09/21/20 01/03/23 History allopurinoL [Zyloprim] 100 mg PO DAILY 09/21/20 01/03/23 History Acetaminophen Tab [Tylenol] 1,000 mg PO QID PRN 11/04/22 01/03/23 History Cholecalciferol [Vitamin D3 (25 25 mcg PO DAILY 11/04/22 01/03/23 History Mcg = 1000 Iu)] Famotidine 20 - 40 mg PO HS PRN 11/04/22 01/03/23 History L.acidoph,Paracasei, B.lactis 1 cap PO DAILY 11/04/22 01/03/23 History [Probiotic] Losartan Potassium [Cozaar] 100 mg PO DAILY 11/04/22 01/03/23 History Omeprazole [PriLOSEC] 40 mg PO DAILY 11/04/22 01/03/23 History Ubidecarenone [Coenzyme Q10] 200 mg PO DAILY 11/04/22 01/03/23 History Vitamin B Complex 1 cap PO DAILY 11/04/22 01/03/23 History hydroCHLOROthiazide 12.5 mg PO DAILY 11/04/22 01/03/23 History Apixaban [Eliquis] 5 mg PO BID #60 tab 11/13/22 01/03/23 Rx Dapagliflozin Propanediol [Farxiga] 5 mg PO DAILY #30 tab 11/13/22 01/03/23 Rx HYDROcodone/APAP 10-325MG [[place] 1 tab PO QID PRN #12 tab 11/13/22 01/03/23 Rx 10-325] Pregabalin [Lyrica] 150 mg PO BID #6 cap 11/13/22 01/03/23 Rx Atorvastatin [Lipitor] 40 mg PO HS 01/03/23 01/03/23 History DULoxetine HCL [Cymbalta] 60 mg PO DAILY 01/03/23 01/03/23 History Multivit-Min/Iron/Folic/Lutein 1 tab PO DAILY 01/03/23 01/03/23 History [Centrum Silver Women Tablet] Allergies Allergy/AdvReac Type Severity Reaction Status Date / Time cephalexin [From Keflex] Allergy Rash/Hives Verified 01/03/23 13:56 clindamycin Allergy Rash/Hives Verified 01/03/23 13:56 Penicillins Allergy Unknown Verified 01/03/23 13:56 oxybutynin [From Ditropan] AdvReac Hallucinati Verified 01/03/23 13:56 ons Physical Exam Vitals: Vital Signs Temp Pulse Pulse Resp BP BP Pulse Ox 01/04/23 07:38 97.5 F L 80 16 153/87 98 01/04/23 03:06 98.4 F 90 16 164/91 93 L 01/03/23 19:46 97.4 F L 88 16 146/79 94 L 01/03/23 15:39 80 18 148/76 98 01/03/23 14:35 97.9 F 72 18 170/81 96 01/03/23 13:46 61 16 175/91 95 01/03/23 13:00 59 L 18 190/93 01/03/23 12:50 70 18 190/93 01/03/23 12:40 58 L 18 190/93 01/03/23 12:30 190/93 01/03/23 12:20 190/93 01/03/23 12:10 58 L 18 190/93 98 01/03/23 12:00 61 18 192/96 98 01/03/23 11:50 59 L 7 L 192/96 98 01/03/23 11:40 58 L 9 L 186/86 100 01/03/23 11:25 97.3 F L 78 18 186/86 99 Intake and Output 01/03/23 01/04/23 01/04/23 22:59 06:59 14:59 Output Total 1100 Balance -1100 Output: Urine 1100 Other: Voiding Method Bedside Commode Bedside Commode # Voids 1 Weight 87.543 kg Results CBC & Chem 7: 01/04/23 05:31 01/04/23 05:31 Labs: Abnormal Lab Results - Last 24 Hours (Table) 01/03/23 01/03/23 01/03/23 Range/Units 11:50 11:53 11:53 RDW (11.5-14.5) % Lymphocytes # 0.8 L (1.0-4.8) k/uL Chloride 108 H (98-107) mmol/L Carbon Dioxide (20.0-27.5) mmol/L BUN 28 H (7-17) mg/dL Creatinine 1.40 H (0.52-1.04) mg/dL Est GFR (CKD-EPI)AfAm (60.0-200.0) Est GFR (CKD-EPI)NonAf (60.0-200.0) Glucose 126 H (74-99) mg/dL POC Glucose (mg/dL) 127 H (70-110) mg/dL Urine Appearance (Clear) Urine Protein (Negative) Urine Glucose (UA) (Negative) Urine Blood (Negative) Urine Nitrite (Negative) Ur Leukocyte Esterase (Negative) Urine RBC (0-5) /hpf Urine WBC (0-5) /hpf Urine WBC Clumps (None) /hpf Urine Bacteria (None) /hpf Hyaline Casts (0-2) /lpf Urine Mucus (None) /hpf 01/03/23 01/04/23 01/04/23 Range/Units 12:51 05:31 05:31 RDW 14.9 H (11.5-14.5) % Lymphocytes # 0.32 L (1.0-4.8) k/uL Chloride (98-107) mmol/L Carbon Dioxide 28.6 H (20.0-27.5) mmol/L BUN (7-17) mg/dL Creatinine (0.52-1.04) mg/dL Est GFR (CKD-EPI)AfAm 49.4 L (60.0-200.0) Est GFR (CKD-EPI)NonAf 42.6 L (60.0-200.0) Glucose 140 H (74-99) mg/dL POC Glucose (mg/dL) (70-110) mg/dL Urine Appearance Cloudy H (Clear) Urine Protein 1+ H (Negative) Urine Glucose (UA) 2+ H (Negative) Urine Blood Large H (Negative) Urine Nitrite Positive H (Negative) Ur Leukocyte Esterase Large H (Negative) Urine RBC >182 H (0-5) /hpf Urine WBC 23 H (0-5) /hpf Urine WBC Clumps Moderate H (None) /hpf Urine Bacteria Occasional H (None) /hpf Hyaline Casts 42 H (0-2) /lpf Urine Mucus Occasional H (None) /hpf Thrombosis Risk Factor Assmnt - Choose All That Apply Each Factor Represents 1 point: Obesity (BMI >25) Other Risk Factors: No Each Risk Factor Represents 3 Points: Age 75 years or older Thrombosis Risk Factor Assessment Total Risk Factor Score: 4 Thrombosis Risk Factor Assessment Level: Moderate Risk
[2023-01-04] MEDS: BACLOFEN 10 MG TAB PO PRN ×2 (12:51→22:06)
[2023-01-04] MEDS: HYDROcodone/APAP 10-325MG 1 EACH TAB PO PRN ×2 (13:45→22:07)
--- NOTE | 2023-01-04 14:25 | P.PN ---
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 Patient was recently hospitalized at [facility] after she was admitted for metabolic encephalopathy due possible TIA/CVA and had paroxysmal atrial for ablation at that time she was seen in consultation by neurology as well as cardiology, patient apparently was in her usual state of health. Yesterday she woke up in the morning and she had breakfast and after that she became quite lethargic and unresponsive apparently she lives in assisted living facility, so they have contacted EMS brought the patient to the emergency department for evaluation, she was quite obtunded initially, she was given IV fluid resuscitation, she was found to have a urinary tract infection initially the working diagnosis was UTI with sepsis, triggering that on encephalopathy, however the patient stated that she was not able to find the appropriate words therefore she was treated like she is having a transient ischemic attack rule out acute ischemic event, computed tomography scan of the brain did not show evidence of acute infarct patient was admitted to the hospital she was started on IV antibiotic in the form of Azactam 2gr IVPB q 12 hours due to her multiple ALLERGIES, and due to her past culture that showed E. coli that is resistant to fluoroquinolones, patient was admitted to the hospital infectious disease consultation was obtained along with neurology consultation she was placed on neuro check around the clock. 01/04: Patient is feeling a lot better today, she is sitting up in bed in no apparent distress she continues to have some pain in the lower back as well as right knee, she is requesting her [place] back, she denies any abdominal pain, nausea vomiting or diarrhea, she was seen earlier by neurology was recommended to continue current treatment plan, patient would be to have an MRI as an outpatient, continue IV antibiotic for now, culture still pending, overall she is doing a lot better than yesterday, computed tomography scan of the abdomen and pelvis did not show evidence of acute of normalities history REVIEW OF SYSTEMS Constitutional: No fever, no chills, no night sweats. No weight change. positive for generalized weakness,no fatigue or lethargy. No daytime sleepiness. EENT: No headache. No blurred vision or double vision, no loss of vision. Chronic loss of Hearing, no ringing in the ears, no dizziness. No nasal draina ge or congestion. No epistaxis. No sore throat. Lungs: No shortness of breath, cough, no sputum production. No wheezing. Cardiovascular: No chest pain, no lower extremity edema. No palpitations. No paroxysmal nocturnal dyspnea. No orthopnea. No lightheadedness or dizziness. No syncopal episodes. Abdominal: No abdominal pain. No nausea, vomiting. No diarrhea. No constipation. No bloody or tarry stools. No loss of appetite. Genitourinary: No dysuria, increased frequency, urgency. No urinary retention. Musculoskeletal: No myalgias. Noted muscle weakness, noted gait dysfunction, fall at home. No back pain. No neck pain. Integumentary: No wounds. No rash or pruritus. positive for bruising. No change in hair or nails. Neurologic: No aphasia. No facial droop. No change in mentation. No head injury. No headache. No paralysis. No paresthesia. Psychiatric: positive for depression Endocrine: No abnormal blood sugars. No weight change. No excessive sweating or thirst. No cold intolerance. PHYSICAL EXAMINATION Gen: This is an 82-year-old obese female. She is resting and appears to be comfortable and in no acute distress. HEENT: Head is atraumatic, normocephalic. Pupils equal, round. Sclerae is anicteric. NECK: Supple. No JVD. No lymphadenopathy. No thyromegaly. LUNGS: Clear to auscultation. No wheezes or rhonchi. No intercostal re tractions. HEART: First heart sound is depressed, second heart sound is normal, 2/6 systolic ejection murmur at the left sternal border. ABDOMEN: Soft, mild tenderness to the epigastric area, no rebound or guarding positive bowel sounds EXTREMITIES: No pedal edema. No calf tenderness, DP+2 bilaterally NEUROLOGICAL: Patient is awake, alert and oriented to person and place, CN II- XII are grossly intact muscle power 4/5 in bilateral upper and lower extremities. ASSESSMENT AND PLAN 1. Metabolic encephalopathy secondary to UTI with sepsis. Ruled out for acute ischemic event. Continue patient on IV antibiotic in the form of Azactam 2 g of piggyback every 12 hours until the final cultures are back, continue IV fluid resuscitation the form of normal saline 75 mL an hour, monitor the patient very closely, infectious disease consultation as well as neuro consultation appreciated. 2. Paroxysmal Atrial fibrillation. we will continue with Eliquis 5 mg po bid and we will continue to monitor 3. Recent urinary tract infection. last one was E.Coli with Fluoroquinolone resistance, await the final results of cultures 4. Hypertensionand hypertensive cardiovascular disease. Resume patient on hydrochlorothiazide 12.5 mg daily. Continue patient on losartan 100 mg daily. 5. Hyperlipidemia. we will continue Atorvastatin 40 mg po daily 6. Diabetes mellitus type 2. Continue patient on add NovoLog scale before meals and at bedtime, we will continue wit Farxiga 5 mg po daily 7. Diabetic polyneuropathy. Continue Duloxetin 60 mg po daily 8. 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 Continue baclofen 10 mg 3 times daily as needed, added back her [place] 9. Idiopathic gout. Continue allopurinol 100 mg daily. 10. Obstructive sleep apnea. Continue CPAP. 11. GI prophylaxis and gastroesophageal reflux disease. Continue Protonix 40 mg po daily 12. DVT prophylaxis. we will continue with Protonix 40 mg po daily. 13. Abdominal pain. we will arrange for CT scan of the abdomen and pelvis with oral contrast . 14. Acute kidney injury likely due to ATN. better. 15. PT/OT evaluation Objective - Vital Signs Vital signs: Vital Signs Temp 97.5 F L 01/04/23 07:38 Pulse 80 01/04/23 07:38 Resp 16 01/04/23 07:38 BP 153/87 01/04/23 07:38 Pulse Ox 98 01/04/23 07:38 FiO2 Intake & Output 01/03/23 01/04/23 01/04/23 18:59 06:59 18:59 Output Total 1100 900 Balance -1100 -900 Weight 87.543 kg Output: Urine 1100 900 Other: Voiding Method Bedside Commode Bedside Commode # Voids 1 - Labs CBC & Chem 7: 01/04/23 05:31 01/04/23 05:31 Labs: Abnormal Lab Results - Last 24 Hours (Table) 01/04/23 01/04/23 Range/Units 05:31 05:31 RDW 14.9 H (11.5-14.5) % Lymphocytes # 0.32 L (0.90-5.00) X 10*3/uL Carbon Dioxide 28.6 H (20.0-27.5) mmol/L Est GFR (CKD-EPI)AfAm 49.4 L (60.0-200.0) Est GFR (CKD-EPI)NonAf 42.6 L (60.0-200.0) Glucose 140 H (70-110) mg/dL
--- NOTE | 2023-01-04 16:13 | P.PN ---
Subjective Progress Note Date: 01/04/23 The patient seen at bedside and she is accompanied with her daughter. The daughter patient is back to baseline and no further confusion.Difficulty. No focal weakness. Patient is in agreement that she is back to baseline and doing better. Objective - Vital Signs Vital signs: Vital Signs Temp 97.9 F 01/04/23 14:17 Pulse 95 01/04/23 14:17 Resp 16 01/04/23 14:17 BP 135/87 01/04/23 14:17 Pulse Ox 94 L 01/04/23 14:17 FiO2 Intake & Output 01/03/23 01/04/23 01/04/23 18:59 06:59 18:59 Output Total 1100 900 Balance -1100 -900 Weight 87.543 kg Output: Urine 1100 900 Other: Voiding Method Bedside Commode Bedside Commode # Voids 1 - Exam NEUROLOGICAL: Higher mental function: The patient is awake, alert, oriented to self, place and time. Patient is following commands. No aphasia and no neglect. Cranial nerves: The pupils are round, equal and reactive to light. Visual schroeder are full to confrontation throughout. Extraocular movement is intact no nystagmus is noted. Facial sensation is normal to touch throughout. The facial strength is normal throughout.Tongue is midline and moved [id number] without any difficulty. No dysarthria is noted. Shoulder shrug is normal bilaterally. Motor: The strength is 5 over 5 throughout uppers and lifts lowers above gravity without focality. Normal tone and bulk. Cerebellum: Normal finger to nose bilaterally. Sensation: Sensation is normal to touch throughout. Reflexes (right/left):1+ thorughout. Plantars are mute bilaterally. Some of the workup during his hospital visit consisted of: Patient is afebrile. CBC with differential is unremarkable Vitamin B12 is 427 TSH is 1.23 Ammonia is less than 9 Initial loss serum glucose is 126. The creatinine is 1.40. Plasma lactic acid vein is 1.6. Urinalysis seems suggestive of underlying urinary tract infection. CT of the head is reported as no acute intracranial hemorrhage or midline shift. There is mild to moderate diffuse cerebral atrophy and mild chronic small vessel ischemic changes redemonstrated. No significant change from recent prior CT. Personally reviewed the CT of the head and there is no acute or subacute ischemia - Labs CBC & Chem 7: 01/04/23 05:31 01/04/23 05:31 Labs: Abnormal Lab Results - Last 24 Hours (Table) 01/04/23 01/04/23 Range/Units 05:31 05:31 RDW 14.9 H (11.5-14.5) % Lymphocytes # 0.32 L (0.90-5.00) X 10*3/uL Carbon Dioxide 28.6 H (20.0-27.5) mmol/L Est GFR (CKD-EPI)AfAm 49.4 L (60.0-200.0) Est GFR (CKD-EPI)NonAf 42.6 L (60.0-200.0) Glucose 140 H (70-110) mg/dL Assessment and Plan Assessment: Altered mental status due to underlying likely acute urinary tract infection--mentation improved Likely underlying acute UTI History of TIA Diabetes mellitus Hypertension History of multiple back surgeries since 2014 that's documented. Plan: Patient mentation has improved. The patient is on her home dose of Eliquis 5mg bid and is on Lipitor 40mg qhs. Continue neuro checks We'll defer the rest of the medical management to primary team The plan was discussed with the patient and her nurse. There is no further neurological workup. We'll sign off. Please reconsult if needed. Time with Patient: Less than 30
--- NOTE | 2023-01-04 21:32 | P.PN ---
Subjective Progress Note Date: 01/04/23 Principal diagnosis: UTI Patient is a 84-year-old female with multiple comorbidities presenting to the hospital with weakness and concern for difficulty speaking finding the words patient noticed to have a positive concerning for symptomatic UTI. On today's evaluation that is 01/04/2023, the patient denies having any fever or any chills patient is breathing slightly comfortably no chest pain no cough no abdominal pain or diarrhea Objective - Vital Signs Vital signs: Vital Signs Temp 97.5 F L 01/04/23 07:38 Pulse 80 01/04/23 07:38 Resp 16 01/04/23 07:38 BP 153/87 01/04/23 07:38 Pulse Ox 98 01/04/23 07:38 FiO2 Intake & Output 01/03/23 01/04/23 01/04/23 18:59 06:59 18:59 Output Total 1100 Balance -1100 Weight 87.543 kg Output: Urine 1100 Other: Voiding Method Bedside Commode # Voids 1 - Exam An elderly female lying in bed in no distress Lungs clear to auscultation Abdomen soft Exam compared with the help of NUCLEAR AUXILIARY OPERATOR - Labs CBC & Chem 7: 01/05/23 05:15 01/05/23 05:15 Labs: Abnormal Lab Results - Last 24 Hours (Table) 01/03/23 01/03/23 01/03/23 Range/Units 11:50 11:53 11:53 Lymphocytes # 0.8 L (1.0-4.8) k/uL Chloride 108 H (98-107) mmol/L BUN 28 H (7-17) mg/dL Creatinine 1.40 H (0.52-1.04) mg/dL Glucose 126 H (74-99) mg/dL POC Glucose (mg/dL) 127 H (70-110) mg/dL Urine Appearance (Clear) Urine Protein (Negative) Urine Glucose (UA) (Negative) Urine Blood (Negative) Urine Nitrite (Negative) Ur Leukocyte Esterase (Negative) Urine RBC (0-5) /hpf Urine WBC (0-5) /hpf Urine WBC Clumps (None) /hpf Urine Bacteria (None) /hpf Hyaline Casts (0-2) /lpf Urine Mucus (None) /hpf 01/03/23 Range/Units 12:51 Lymphocytes # (1.0-4.8) k/uL Chloride (98-107) mmol/L BUN (7-17) mg/dL Creatinine (0.52-1.04) mg/dL Glucose (74-99) mg/dL POC Glucose (mg/dL) (70-110) mg/dL Urine Appearance Cloudy H (Clear) Urine Protein 1+ H (Negative) Urine Glucose (UA) 2+ H (Negative) Urine Blood Large H (Negative) Urine Nitrite Positive H (Negative) Ur Leukocyte Esterase Large H (Negative) Urine RBC >182 H (0-5) /hpf Urine WBC 23 H (0-5) /hpf Urine WBC Clumps Moderate H (None) /hpf Urine Bacteria Occasional H (None) /hpf Hyaline Casts 42 H (0-2) /lpf Urine Mucus Occasional H (None) /hpf Assessment and Plan (1) Allergy to multiple antibiotics Current Visit: Yes Status: Acute Code(s): Z88.1 - ALLERGY STATUS TO OTHER ANTIBIOTIC AGENTS SNOMED Code(s): 170068136 (2) UTI (urinary tract infection) Current Visit: Yes Status: Acute Code(s): N39.0 - URINARY TRACT INFECTION, SITE NOT SPECIFIED SNOMED Code(s): 70070400 Plan: This was a telehealth visit 1patient presented to hospital mental status changes which is likely multifactorial possible metabolic prerenal patient also have significantly po sitive UA underlying urinary source not an x-ray likely pulmonary gram-negative pathogen 2-patient with penicillin and cephalosporin allergy that would limit the number of antibiotics safe to use 3-Pt to contiue with Azactam 2 g every 12 hours while waiting for the culture to finalize Time with Patient: Less than 30
[2023-01-04] MEDS: FAMOTIDINE 20 MG TAB PO SCH (21:59)
[2023-01-04] MEDS: ATORVASTATIN 40 MG TAB PO SCH (21:59)
[2023-01-05] MEDS: AZTREONAM 2 GM in SODIUM CHLORIDE 0.9% 100 ML IVPB SCH ×2 (08:18→22:05)
[2023-01-05] MEDS: hydroCHLOROthiazide 12.5 MG CAP PO SCH (08:18)
[2023-01-05] MEDS: DAPAGLIFLOZIN PROPANEDIOL 5 MG TABLET PO SCH (08:18)
[2023-01-05] MEDS: DULoxetine HCL 60 MG CAPSULE.DR PO SCH (08:18)
[2023-01-05] MEDS: allopurinoL 100 MG TAB PO SCH (08:18)
[2023-01-05] MEDS: LOSARTAN 50 MG TAB PO SCH (08:18)
[2023-01-05] MEDS: CHOLECALCIFEROL 25 MCG (1000 IU) TABLET PO SCH (08:18)
[2023-01-05] MEDS: PANTOPRAZOLE 40 MG TABLET PO SCH (08:18)
[2023-01-05] MEDS: APIXABAN 5 MG TAB PO SCH ×2 (08:18→21:54)
[2023-01-05] MEDS: LACTOBACILLUS ACIDOPH & BULGAR 1 EACH PACKET PO SCH (09:07)
[2023-01-05 09:19] LABS: African American GFR (CKD) 57.4 (60.0-200.0); Albumin 3.5 g/dL (3.8-4.9); Albumin/Globulin Ratio 1.76 (1.60-3.17); Anion Gap 9.9 mmol/L (10.00-18.00); BUN/Creat Ratio 20.66 Ratio (12.00-20.00); Blood Urea Nitrogen 21.9 mg/dL (9.0-27.0); Calcium 8.8 mg/dL (8.7-10.3); Carbon Dioxide 28.2 mmol/L (20.0-27.5); Non-African American GFR(CKD) 49.6 (60.0-200.0); Potassium 4.4 mmol/L (3.5-5.5); Total Bilirubin 0.3 mg/dL (0.30-1.20); Total Protein 5.4 g/dL (6.2-8.2)
[2023-01-05 11:16] LABS: Basophils # (A) 0.02 X 10*3/uL (0.00-0.10); Basophils % (A) 0.4 %; Eosinophils # (A) 0.11 X 10*3/uL (0.04-0.35); Eosinophils % (A) 2.4 %; HCT 41.1 % (37.2-46.3); HGB 12.8 g/dL (12.0-15.0); Immature Grans, Automated 0.4 %; Lymphocytes # (A) 0.61 X 10*3/uL (0.90-5.00); Lymphocytes % (A) 13.1 %; MCHC 31.1 g/dL (32.0-37.0); Mean Platelet Volume 11.6 fL (9.5-12.2); Monocytes # (A) 0.77 X 10*3/uL (0.20-1.00); Monocytes % (A) 16.5 %; NRBC Per 100 WBC 0 /100 WBCS (0.0-0.0); Neutrophils # (A) 3.13 X 10*3/uL (1.80-7.70); Neutrophils % (A) 67.2 %; Platelet Count 202 X 10*3/uL (140-440); RBC 4.42 X 10*6/uL (4.10-5.20); RDW 14.9 % (11.5-14.5); WBC 4.66 X 10*3/uL (4.50-10.00)
--- NOTE | 2023-01-05 12:03 | P.PN ---
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 Patient was recently hospitalized at [facility] after she was admitted for metabolic encephalopathy due possible TIA/CVA and had paroxysmal atrial for ablation at that time she was seen in consultation by neurology as well as cardiology, patient apparently was in her usual state of health. Yesterday she woke up in the morning and she had breakfast and after that she became quite lethargic and unresponsive apparently she lives in assisted living facility, so they have contacted EMS brought the patient to the emergency department for evaluation, she was quite obtunded initially, she was given IV fluid resuscitation, she was found to have a urinary tract infection initially the working diagnosis was UTI with sepsis, triggering that on encephalopathy, however the patient stated that she was not able to find the appropriate words therefore she was treated like she is having a transient ischemic attack rule out acute ischemic event, computed tomography scan of the brain did not show evidence of acute infarct patient was admitted to the hospital she was started on IV antibiotic in the form of Azactam 2gr IVPB q 12 hours due to her multiple ALLERGIES, and due to her past culture that showed E. coli that is resistant to fluoroquinolones, patient was admitted to the hospital infectious disease consultation was obtained along with neurology consultation she was placed on neuro check around the clock. 01/04: Patient is feeling a lot better today, she is sitting up in bed in no apparent distress she continues to have some pain in the lower back as well as right knee, she is requesting her [place] back, she denies any abdominal pain, nausea vomiting or diarrhea, she was seen earlier by neurology was recommended to continue current treatment plan, patient would be to have an MRI as an outpatient, continue IV antibiotic for now, culture still pending, overall she is doing a lot better than yesterday, computed tomography scan of the abdomen and pelvis did not show evidence of acute of normalities history 01/05: Patient is laying down in bed in no apparent distress, she denies any chest, she is a bit short of breath, she denies any abdominal pain, nausea vo miting or diarrhea she seems to be tolerating her treatment very well, patient will remain in the hospital, urine cultures pending. We will continue toward the patient at this point in time, monitor the patient very closely. REVIEW OF SYSTEMS Constitutional: No fever, no chills, no night sweats. No weight change. positive for generalized weakness,no fatigue or lethargy. No daytime sleepiness. EENT: No headache. No blurred vision or double vision, no loss of vision. Chronic loss of Hearing, no ringing in the ears, no dizziness. No nasal drainage or congestion. No epistaxis. No sore throat. Lungs: No shortness of breath, cough, no sputum production. No wheezing. Cardiovascular: No chest pain, no lower extremity edema. No palpitations. No paroxysmal nocturnal dyspnea. No orthopnea. No lightheadedness or dizziness. No syncopal episodes. Abdominal: No abdominal pain. No nausea, vomiting. No diarrhea. No constipation. No bloody or tarry stools. No loss of appetite. Genitourinary: No dysuria, increased frequency, urgency. No urinary retention. Musculoskeletal: No myalgias. Noted muscle weakness, noted gait dysfunction, fall at home. No back pain. No neck pain. Integumentary: No wounds. No rash or pruritus. positive for bruising. No padilla ge in hair or nails. Neurologic: No aphasia. No facial droop. No change in mentation. No head injury. No headache. No paralysis. No paresthesia. Psychiatric: positive for depression Endocrine: No abnormal blood sugars. No weight change. No excessive sweating or thirst. No cold intolerance. PHYSICAL EXAMINATION Gen: This is an 82-year-old obese female. She is resting and appears to be comfortable and in no acute distress. HEENT: Head is atraumatic, normocephalic. Pupils equal, round. Sclerae is anicteric. NECK: Supple. No JVD. No lymphadenopathy. No thyromegaly. LUNGS: Clear to auscultation. No wheezes or rhonchi. No intercostal retractions. HEART: First heart sound is depressed, second heart sound is normal, 2/6 systolic ejection murmur at the left sternal border. ABDOMEN: Soft, mild tenderness to the epigastric area, no rebound or guarding positive bowel sounds EXTREMITIES: No pedal edema. No calf tenderness, DP+2 bilaterally NEUROLOGICAL: Patient is awake, alert and oriented to person and place, CN II- XII are grossly intact muscle power 4/5 in bilateral upper and lower extremities. ASSESSMENT AND PLAN 1. Metabolic encephalopathy secondary to UTI with sepsis. Ruled out for acute ischemic event.. appears much better we will continue with present treatment plan with Azactam 2 gr IVPB Q 12 h awaiting the results of the cultures, we will continue with monitoring, no evidence of acute ischemic event. 2. Paroxysmal Atrial fibrillation. we will continue with Eliquis 5 mg po bid and we will continue to monitor 3. Recent urinary tract infection. last one was E.Coli with Fluoroquinolone resistance, await the final results of cultures 4. Hypertensionand hypertensive cardiovascular disease. continue patient on hydrochlorothiazide 12.5 mg daily. Continue patient on losartan 100 mg daily. 5. Hyperlipidemia. we will continue Atorvastatin 40 mg po daily 6. Diabetes mellitus type 2. Continue patient on add NovoLog scale before meals and at bedtime, we will continue wit Farxiga 5 mg po daily 7. Diabetic polyneuropathy. Continue Duloxetin 60 mg po daily 8. 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 Continue baclofen 10 mg 3 times daily as needed, added back her [place] 9. Idiopathic gout. Continue allopurinol 100 mg daily. 10. Obstructive sleep apnea. Continue CPAP. 11. GI prophylaxis and gastroesophageal reflux disease. Continue Protonix 40 mg po daily 12. DVT prophylaxis. we will continue with Protonix 40 mg po daily. 13. Abdominal pain resolved. CT scan of the abomen and pelvis read as negative. 14. Acute kidney injury likely due to ATN. better. 15. PT/OT evaluation 16. AFC on Friday. Objective - Vital Signs Vital signs: Vital Signs Temp 97.5 F L 01/05/23 07:45 Pulse 76 01/05/23 07:45 Resp 16 01/05/23 07:45 BP 140/85 01/05/23 07:45 Pulse Ox 96 01/05/23 07:45 FiO2 Intake & Output 01/04/23 01/05/23 01/05/23 18:59 06:59 18:59 Intake Total 590 Output Total 1500 500 Balance -1500 90 Intake: Oral 590 Output: Urine 1500 500 Other: Voiding Method Bedside Commode Bedside Commode External Catheter # Bowel Movements 1 - Labs CBC & Chem 7: 01/05/23 05:15 01/05/23 05:15 Labs: Abnormal Lab Results - Last 24 Hours (Table) 01/05/23 Range/Units 05:15 Carbon Dioxide 28.2 H (20.0-27.5) mmol/L Anion Gap 9.90 L (10.00-18.00) mmol/L Est GFR (CKD-EPI)AfAm 57.4 L (60.0-200.0) Est GFR (CKD-EPI)NonAf 49.6 L (60.0-200.0) BUN/Creatinine Ratio 20.66 H (12.00-20.00) Ratio Glucose 137 H (70-110) mg/dL Total Protein 5.4 L (6.2-8.2) g/dL Albumin 3.5 L (3.8-4.9) g/dL Microbiology - Last 24 Hours (Table) 01/03/23 13:45 Blood Culture - Preliminary Blood 01/03/23 13:45 Blood Culture - Preliminary Blood 01/03/23 12:51 Urine Culture - Preliminary Urine,Voided
[2023-01-05] MEDS: HYDROcodone/APAP 10-325MG 1 EACH TAB PO PRN ×2 (12:42→21:54)
[2023-01-05] MEDS: ATORVASTATIN 40 MG TAB PO SCH (21:54)
[2023-01-05] MEDS: FAMOTIDINE 20 MG TAB PO SCH (21:54)
[2023-01-05] MEDS: BACLOFEN 10 MG TAB PO PRN (22:04)
[2023-01-05] MEDS: MELATONIN 5 MG TABLET PO SCH (23:25)
[2023-01-06] MEDS ORDERED: ONDANSETRON 4 MG/2 ML VIAL IVP PRN (07:59)
[2023-01-06] MEDS: AZTREONAM 2 GM in SODIUM CHLORIDE 0.9% 100 ML IVPB SCH ×2 (09:27→20:56)
[2023-01-06] MEDS: DAPAGLIFLOZIN PROPANEDIOL 5 MG TABLET PO SCH ×3 (10:13→11:27)
[2023-01-06] MEDS: LOSARTAN 50 MG TAB PO SCH ×3 (10:13→11:27)
[2023-01-06] MEDS: DULoxetine HCL 60 MG CAPSULE.DR PO SCH ×3 (10:13→11:28)
[2023-01-06] MEDS: CHOLECALCIFEROL 25 MCG (1000 IU) TABLET PO SCH ×2 (10:14→10:26)
[2023-01-06] MEDS: allopurinoL 100 MG TAB PO SCH ×3 (10:14→11:28)
[2023-01-06] MEDS: APIXABAN 5 MG TAB PO SCH ×4 (10:14→20:56)
[2023-01-06] MEDS: PANTOPRAZOLE 40 MG TABLET PO SCH ×3 (10:14→11:28)
[2023-01-06] MEDS: hydroCHLOROthiazide 12.5 MG CAP PO SCH ×3 (10:14→11:28)
[2023-01-06] MEDS: LACTOBACILLUS ACIDOPH & BULGAR 1 EACH PACKET PO SCH (10:27)
[2023-01-06] MEDS: BACLOFEN 10 MG TAB PO PRN ×2 (11:32→21:15)
[2023-01-06] MEDS: HYDROcodone/APAP 10-325MG 1 EACH TAB PO PRN ×2 (11:32→20:57)
--- NOTE | 2023-01-06 11:48 | P.PN ---
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 Patient was recently hospitalized at [facility] after she was admitted for metabolic encephalopathy due possible TIA/CVA and had paroxysmal atrial for ablation at that time she was seen in consultation by neurology as well as cardiology, patient apparently was in her usual state of health. Yesterday she woke up in the morning and she had breakfast and after that she became quite lethargic and unresponsive apparently she lives in assisted living facility, so they have contacted EMS brought the patient to the emergency department for evaluation, she was quite obtunded initially, she was given IV fluid resuscitation, she was found to have a urinary tract infection initially the working diagnosis was UTI with sepsis, triggering that on encephalopathy, however the patient stated that she was not able to find the appropriate words therefore she was treated like she is having a transient ischemic attack rule out acute ischemic event, computed tomography scan of the brain did not show evidence of acute infarct patient was admitted to the hospital she was started on IV antibiotic in the form of Azactam 2gr IVPB q 12 hours due to her multiple ALLERGIES, and due to her past culture that showed E. coli that is resistant to fluoroquinolones, patient was admitted to the hospital infectious disease consultation was obtained along with neurology consultation she was placed on neuro check around the clock. 01/04: Patient is feeling a lot better today, she is sitting up in bed in no apparent distress she continues to have some pain in the lower back as well as right knee, she is requesting her [place] back, she denies any abdominal pain, nausea vomiting or diarrhea, she was seen earlier by neurology was recommended to continue current treatment plan, patient would be to have an MRI as an outpatient, continue IV antibiotic for now, culture still pending, overall she is doing a lot better than yesterday, computed tomography scan of the abdomen and pelvis did not show evidence of acute of normalities history 01/05: Patient is laying down in bed in no apparent distress, she denies any chest, she is a bit short of breath, she denies any abdominal pain, nausea vo miting or diarrhea she seems to be tolerating her treatment very well, patient will remain in the hospital, urine cultures pending. We will continue toward the patient at this point in time, monitor the patient very closely. 01/06: Patient is sitting up in bed she is complaining of increased nausea today, no vomiting, she did have a slightly bowel movement, she denies any fever or chills at this time, she continues to have these symptoms on and off for the past few years, computed tomography scan of the abdomen did not show evidence of acute of normalities, we'll arrange for HIDA scan with CCK, for tomorrow morning, continue Zofran 4 mg IV push every 6 hours as needed, continue metoclopramide 5 mg push every 6 hours as needed, based on the result of the HIDA scan she may need to go for laparoscopic cholecystectomy. This will be done as an outpatient REVIEW OF SYSTEMS Constitutional: No fever, no chills, no night sweats. No weight change. positive for generalized weakness,no fatigue or lethargy. No daytime sleepiness. HEENT: No headache. No blurred vision or double vision, no loss of vision. Chronic loss of Hearing, no ringing in the ears, no dizziness. No nasal drainage or congestion. No epistaxis. No sore throat. Lungs: No shortness of breath, cough, no sputum production. No wheezing. Cardiovascular: No chest pain, no lower extremity edema. No palpitations. No paroxysmal nocturnal dyspnea. No orthopnea. No lightheadedness or dizziness. No syncopal episodes. Abdominal: positive for abdominal pain. positive for nausea, vomiting. po sitive for slimy diarrhea. No constipation. No bloody or tarry stools. positive for loss of appetite. Genitourinary: No dysuria, increased frequency, urgency. No urinary retention. Musculoskeletal: No myalgias. Noted muscle weakness, noted gait dysfunction, fall at home. No back pain. No neck pain. Integumentary: No wounds. No rash or pruritus. positive for bruising. No change in hair or nails. Neurologic: No aphasia. No facial droop. No change in mentation. No head injury. No headache. No paralysis. No paresthesia. Psychiatric: positive for depression Endocrine: No abnormal blood sugars. No weight change. No excessive sweating or thirst. No cold intolerance. PHYSICAL EXAMINATION Gen: This is an 82-year-old obese female. She is resting and appears to be comfortable and in no acute distress. HEENT: Head is atraumatic, normocephalic. Pupils equal, round. Sclerae is anicteric. NECK: Supple. No JVD. No lymphadenopathy. No thyromegaly. LUNGS: Clear to auscultation. No wheezes or rhonchi. No intercostal retractions. HEART: First heart sound is depressed, second heart sound is normal, 2/6 systolic ejection murmur at the left sternal border. ABDOMEN: Soft, mild tenderness to the epigastric area, no rebound or guarding positive bowel sounds EXTREMITIES: No pedal edema. No calf tenderness, DP+2 bilaterally NEUROLOGICAL: Patient is awake, alert and oriented to person and place, CN II- XII are grossly intact muscle power 4/5 in bilateral upper and lower extremities. ASSESSMENT AND PLAN 1. Metabolic encephalopathy secondary to UTI with sepsis. Ruled out for acute ischemic event.. appears much better we will continue with present treatment plan with Azactam 2 gr IVPB Q 12 h awaiting the results of the cultures, we will continue with monitoring, no evidence of acute ischemic event. 2. Paroxysmal Atrial fibrillation. we will continue with Eliquis 5 mg po bid and we will continue to monitor 3. Recent urinary tract infection. last one was E.Coli with Fluoroquinolone resistance, await the final results of cultures 4. Hypertensionand hypertensive cardiovascular disease. continue patient on hydrochlorothiazide 12.5 mg daily. Continue patient on losartan 100 mg daily. 5. Hyperlipidemia. we will continue Atorvastatin 40 mg po daily 6. Diabetes mellitus type 2. Continue patient on add NovoLog scale before meals and at bedtime, we will continue wit Farxiga 5 mg po daily 7. Diabetic polyneuropathy. Continue Duloxetin 60 mg po daily 8. 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 Continue baclofen 10 mg 3 times daily as needed, added back her [place] 9. Idiopathic gout. Continue allopurinol 100 mg daily. 10. Obstructive sleep apnea. Continue CPAP. 11. GI prophylaxis and gastroesophageal reflux disease. Continue Protonix 40 mg po daily 12. DVT prophylaxis. we will continue with Protonix 40 mg po daily. 13. Abdominal pain likely related to biliary dyskinsia. we will check HIDA scan with CCK and we will continue with Zofran 4 IVP q 6 h as needed along with edmund ng Metoclopramide 5 mg IVP q 6 h prn, we will check stool for C.Difficile 14. Acute kidney injury likely due to ATN. better. 15. PT/OT evaluation Objective - Vital Signs Vital signs: Vital Signs Temp 97.6 F 01/06/23 08:00 Pulse 96 01/06/23 08:00 Resp 20 01/06/23 08:00 BP 151/94 01/06/23 08:00 Pulse Ox 96 01/06/23 08:00 FiO2 Intake & Output 01/05/23 01/06/23 01/06/23 18:59 06:59 18:59 Intake Total 100 590 Output Total 900 Balance 100 -310 Intake: Intake, IV Titration 100 Amount Aztreonam 2 gm In Sodium 100 Chloride 0.9% 100 ml @ 33 .3 mls/hr IVPB Q12HR [facility] Rx#:[id number] Oral 590 Output: Urine 900 Other: Voiding Method External Catheter External Catheter External Catheter # Voids 0 # Bowel Movements 1 0 - Labs CBC & Chem 7: 01/05/23 05:15 01/05/23 05:15 Labs: Abnormal Lab Results - Last 24 Hours (Table) 01/05/23 Range/Units 05:15 MCHC 31.1 L (32.0-37.0) g/dL RDW 14.9 H (11.5-14.5) % Lymphocytes # 0.61 L (0.90-5.00) X 10*3/uL Microbiology - Last 24 Hours (Table) 01/03/23 13:45 Blood Culture - Preliminary Blood 01/03/23 13:45 Blood Culture - Preliminary Blood 01/03/23 12:51 Urine Culture - Preliminary Urine,Voided Gram Neg Bacilli
--- NOTE | 2023-01-06 14:29 | P.PN ---
Subjective Progress Note Date: 01/06/23 Principal diagnosis: UTI Patient is a 84-year-old female with multiple comorbidities presenting to the hospital with weakness and concern for difficulty speaking finding the words patient noticed to have a positive concerning for symptomatic UTI. On today's evaluation that is 01/06/2023, the patient denies any fever or any chills, patient is breathing comfortably on room air, the patient denies chest pain no cough, the patient denies having any nausea no vomiting, no abdominal pain and no diarrhea has been recorded Objective - Vital Signs Vital signs: Vital Signs Temp 98.3 F 01/06/23 12:09 Pulse 90 01/06/23 12:09 Resp 18 01/06/23 12:09 BP 138/89 01/06/23 12:09 Pulse Ox 94 L 01/06/23 12:09 FiO2 Intake & Output 01/05/23 01/06/23 01/06/23 18:59 06:59 18:59 Intake Total 100 590 Output Total 900 Balance 100 -310 Intake: Intake, IV Titration 100 Amount Aztreonam 2 gm In Sodium 100 Chloride 0.9% 100 ml @ 33 .3 mls/hr IVPB Q12HR [facility] Rx#:[id number] Oral 590 Output: Urine 900 Other: Voiding Method External Catheter External Catheter External Catheter # Voids 0 # Bowel Movements 1 0 - Exam GENERAL DESCRIPTION: An elderly female lying in bed in no distress RESPIRATORY SYSTEM: Unlabored breathing , decreased breath sounds at bases HEART: S1 S2 regular rate and rhythm , ABDOMEN: Soft , no tenderness EXTREMITIES: No edema feet - Labs CBC & Chem 7: 01/05/23 05:15 01/05/23 05:15 Labs: Microbiology - Last 24 Hours (Table) 01/03/23 12:51 Urine Culture - Final Urine,Voided Escherichia coli 01/03/23 13:45 Blood Culture - Preliminary Blood 01/03/23 13:45 Blood Culture - Preliminary Blood Assessment and Plan (1) Allergy to multiple antibiotics Current Visit: Yes Status: Acute Code(s): Z88.1 - ALLERGY STATUS TO OTHER ANTIBIOTIC AGENTS SNOMED Code(s): 637375997 (2) UTI (urinary tract infection) Current Visit: Yes Status: Acute Code(s): N39.0 - URINARY TRACT INFECTION, SITE NOT SPECIFIED SNOMED Code(s): 50012282 Plan: This was a telehealth visit 1patient presented to hospital mental status changes which is likely multifactorial possible metabolic prerenal patient also have significantly positive UA underlying urinary source not an x-ray likely pulmonary gram- negative pathogen 2-patient with penicillin and cephalosporin allergy that would limit the number of antibiotics safe to use 3-the patient urine culture has been finalized with E. coli and resistant to sulfa and quinolones, patient did have ALLERGY to penicillin and cephalosporin, the patient will continue with Azactam may need a midline short course on discharge Time with Patient: Less than 30
[2023-01-06] MEDS: METOCLOPRAMIDE 5 MG/ML 2 ML VIAL IVP PRN (18:32)
[2023-01-06] MEDS: ATORVASTATIN 40 MG TAB PO SCH (20:57)
[2023-01-06] MEDS: MELATONIN 5 MG TABLET PO SCH (20:57)
[2023-01-06] MEDS: FAMOTIDINE 20 MG TAB PO SCH (20:57)
[2023-01-07] MEDS: AZTREONAM 2 GM in SODIUM CHLORIDE 0.9% 100 ML IVPB SCH ×2 (09:34→20:20)
[2023-01-07] MEDS: CHOLECALCIFEROL 25 MCG (1000 IU) TABLET PO SCH (09:35)
[2023-01-07] MEDS: allopurinoL 100 MG TAB PO SCH (09:35)
[2023-01-07] MEDS: DAPAGLIFLOZIN PROPANEDIOL 5 MG TABLET PO SCH (09:35)
[2023-01-07] MEDS: LACTOBACILLUS ACIDOPH & BULGAR 1 EACH PACKET PO SCH (09:35)
[2023-01-07] MEDS: APIXABAN 5 MG TAB PO SCH ×2 (09:35→20:20)
[2023-01-07] MEDS: hydroCHLOROthiazide 12.5 MG CAP PO SCH (09:35)
[2023-01-07] MEDS: METOCLOPRAMIDE 5 MG/ML 2 ML VIAL IVP PRN (09:35)
[2023-01-07] MEDS: DULoxetine HCL 60 MG CAPSULE.DR PO SCH (09:35)
[2023-01-07] MEDS: PANTOPRAZOLE 40 MG TABLET PO SCH (09:35)
[2023-01-07] MEDS: LOSARTAN 50 MG TAB PO SCH (09:35)
--- NOTE | 2023-01-07 09:37 | NM ---
EXAMINATION TYPE: NM hepatobiliary w CCK DATE OF EXAM: 01/07/2023 COMPARISON: NONE CLINICAL INDICATION: Female, 82 years old with history of Biliary dyskinesia; TECHNIQUE: After the intravenous administration of 5.1 mCi Tc 99m Mebrofenin hepatobiliary scintigrap hy is performed. Immediate images post injection. FINDINGS: There is satisfactory initial accumulation of tracer by the liver. The gallbladder is visualized wit hin 10 minutes. The small bowel activity is noted within 60 minutes. At one hour CCK was administer ed, patient was injected with 1.8 mcg of Kinevac, and gallbladder ejection fraction is calculated at 86%. IMPRESSION: 1. Elevated gallbladder ejection fraction may reflect hypercontractile state.
[2023-01-07] MEDS: HYDROcodone/APAP 10-325MG 1 EACH TAB PO PRN ×2 (09:40→23:37)
[2023-01-07 11:57] LABS: Basophils % (A) 0 %; Eosinophils # (A) 0.1 k/uL (0-0.7); Eosinophils % (A) 1 %; HCT 44.8 % (34.0-46.0); HGB 13.8 gm/dL (11.4-16.0); Hypochromasia Slight; Lymphocytes # (A) 0.6 k/uL (1.0-4.8); Lymphocytes % (A) 10 %; MCH 29.2 pg (25.0-35.0); MCHC 30.8 g/dL (31.0-37.0); MCV 94.6 fL (80.0-100.0); Mean Platelet Volume 8.7; Monocytes # (A) 0.4 k/uL (0-1.0); Monocytes % (A) 8 %; Neutrophils # (A) 4.4 k/uL (1.3-7.7); Neutrophils % (A) 78 %; Platelet Count 186 k/uL (150-450); RBC 4.74 m/uL (3.80-5.40); RDW 14.6 % (11.5-15.5); WBC 5.6 k/uL (3.8-10.6)
[2023-01-07 12:19] LABS: ALT 24 U/L (4-34); AST 31 U/L (14-36); African American GFR (CKD) 84 (>60 ml/min/1.73 sqM); Albumin 3.6 g/dL (3.5-5.0); Albumin/Globulin Ratio 1.5; Alkaline Phosphatase 61 U/L (38-126); Anion Gap 6 mmol/L; Blood Urea Nitrogen 19 mg/dL (7-17); Calcium 8.5 mg/dL (8.4-10.2); Carbon Dioxide 26 mmol/L (22-30); Chloride 107 mmol/L (98-107); Globulin 2.4 g/dL; Glucose 131 mg/dL (74-99); Non-African American GFR(CKD) 73 (>60 ml/min/1.73 sqM); Sodium 139 mmol/L (137-145); Total Bilirubin 0.5 mg/dL (0.2-1.3)
--- NOTE | 2023-01-07 12:42 | P.PN ---
Subjective Progress Note Date: 01/07/23 Principal diagnosis: UTI Patient is a 84-year-old female with multiple comorbidities presenting to the hospital with weakness and concern for difficulty speaking finding the words patient noticed to have a positive concerning for symptomatic UTI. Patient did have abdominal symptoms and the patient did have a HIDA scan completed on 01/07/2023 concerning for hyperkinetic gallbladder On today's evaluation that is 01/07/2023, the patient remains to be afebrile, patient is breathing comfortably on room air, the patient denies chest pain no cough, the patient has been complaining of feeling nauseated and a small vomit this morning no worsening abdominal pain and no diarrhea has been reported Objective - Vital Signs Vital signs: Vital Signs Temp 98.3 F 01/07/23 07:17 Pulse 102 H 01/07/23 07:17 Resp 16 01/07/23 07:17 BP 148/95 01/07/23 07:17 Pulse Ox 94 L 01/07/23 07:17 FiO2 Intake & Output 01/06/23 01/07/23 01/07/23 18:59 06:59 18:59 Intake Total 540 Output Total 300 900 Balance -300 -360 Intake: Oral 540 Output: Urine 300 900 Other: Voiding Method External Catheter External Catheter External Catheter - Exam GENERAL DESCRIPTION: An elderly female lying in bed in no distress RESPIRATORY SYSTEM: Unlabored breathing , decreased breath sounds at bases HEART: S1 S2 regular rate and rhythm , ABDOMEN: Soft , no tenderness EXTREMITIES: No edema feet - Labs CBC & Chem 7: 01/07/23 11:23 01/07/23 11:23 Labs: Microbiology - Last 24 Hours (Table) 01/03/23 13:45 Blood Culture - Preliminary Blood 01/03/23 13:45 Blood Culture - Preliminary Blood 01/03/23 12:51 Urine Culture - Final Urine,Voided Escherichia coli Assessment and Plan (1) Allergy to multiple antibiotics Current Visit: Yes Status: Acute Code(s): Z88.1 - ALLERGY STATUS TO OTHER ANTIBIOTIC AGENTS SNOMED Code(s): 768593516 (2) UTI (urinary tract infection) Current Visit: Yes Status: Acute Code(s): N39.0 - URINARY TRACT INFECTION, SITE NOT SPECIFIED SNOMED Code(s): 12212165 Plan: This was a telehealth visit 1patient presented to hospital mental status changes which is likely multifactorial possible metabolic prerenal patient also have significantly positive UA underlying urinary source not an x-ray likely pulmonary gram- negative pathogen 2-patient with penicillin and cephalosporin allergy that would limit the number of antibiotics safe to use 3-the patient urine culture has been finalized with E. coli and resistant to sulfa and quinolones, patient did have ALLERGY to penicillin and cephalosporin, the patient seemed to have shown clinical improvement with Azactam which should be continued and will need a midline short course on discharge Time with Patient: Less than 30
--- NOTE | 2023-01-07 18:52 | P.PN ---
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 Patient was recently hospitalized at [facility] after she was admitted for metabolic encephalopathy due possible TIA/CVA and had paroxysmal atrial for ablation at that time she was seen in consultation by neurology as well as cardiology, patient apparently was in her usual state of health. Yesterday she woke up in the morning and she had breakfast and after that she became quite lethargic and unresponsive apparently she lives in assisted living facility, so they have contacted EMS brought the patient to the emergency department for evaluation, she was quite obtunded initially, she was given IV fluid resuscitation, she was found to have a urinary tract infection initially the working diagnosis was UTI with sepsis, triggering that on encephalopathy, however the patient stated that she was not able to find the appropriate words therefore she was treated like she is having a transient ischemic attack rule out acute ischemic event, computed tomography scan of the brain did not show evidence of acute infarct patient was admitted to the hospital she was started on IV antibiotic in the form of Azactam 2gr IVPB q 12 hours due to her multiple ALLERGIES, and due to her past culture that showed E. coli that is resistant to fluoroquinolones, patient was admitted to the hospital infectious disease consultation was obtained along with neurology consultation she was placed on neuro check around the clock. 01/04: Patient is feeling a lot better today, she is sitting up in bed in no apparent distress she continues to have some pain in the lower back as well as right knee, she is requesting her [place] back, she denies any abdominal pain, nausea vomiting or diarrhea, she was seen earlier by neurology was recommended to continue current treatment plan, patient would be to have an MRI as an outpatient, continue IV antibiotic for now, culture still pending, overall she is doing a lot better than yesterday, computed tomography scan of the abdomen and pelvis did not show evidence of acute of normalities history 01/05: Patient is laying down in bed in no apparent distress, she denies any chest, she is a bit short of breath, she denies any abdominal pain, nausea vo miting or diarrhea she seems to be tolerating her treatment very well, patient will remain in the hospital, urine cultures pending. We will continue toward the patient at this point in time, monitor the patient very closely. 01/06: Patient is sitting up in bed she is complaining of increased nausea today, no vomiting, she did have a slightly bowel movement, she denies any fever or chills at this time, she continues to have these symptoms on and off for the past few years, computed tomography scan of the abdomen did not show evidence of acute of normalities, we'll arrange for HIDA scan with CCK, for tomorrow morning, continue Zofran 4 mg IV push every 6 hours as needed, continue metoclopramide 5 mg push every 6 hours as needed, based on the result of the HIDA scan she may need to go for laparoscopic cholecystectomy. This will be done as an outpatient 01/07: Patient appears to be a bit confused today, she denies any chest pain, or shortness breath, she continues to be somewhat the with poor appetite, she is given a try to eat better today, she had HIDA scan that was negative for biliary dyskinesia did show hyperactive gallbladder with elevated ejection fraction, her final urine culture showed E. coli that is resistant to quinolones and sulfa patient is ALLERGIC to penicillin and cephalosporin, he was recommended by infectious disease to put a midline to continue 7 day course of Azactam 2 g IV piggyback every 12 hours. Patient will likely be discharged to [facility] or by [facility] for morning spoke with her daughter and she is in agreement with the plan. REVIEW OF SYSTEMS Constitutional: No fever, no chills, no night sweats. No weight change. positi ve for generalized weakness,no fatigue or lethargy. No daytime sleepiness. HEENT: No headache. No blurred vision or double vision, no loss of vision. Chronic loss of Hearing, no ringing in the ears, no dizziness. No nasal drainage or congestion. No epistaxis. No sore throat. Lungs: No shortness of breath, cough, no sputum production. No wheezing. Cardiovascular: No chest pain, no lower extremity edema. No palpitations. No paroxysmal nocturnal dyspnea. No orthopnea. No lightheadedness or dizziness. No syncopal episodes. Abdominal: positive for abdominal pain. positive for nausea, vomiting. positive for slimy diarrhea. No constipation. No bloody or tarry stools. positive for loss of appetite. Genitourinary: No dysuria, increased frequency, urgency. No urinary retention. Musculoskeletal: No myalgias. Noted muscle weakness, noted gait dysfunction, fall at home. No back pain. No neck pain. Integumentary: No wounds. No rash or pruritus. positive for bruising. No padilla ge in hair or nails. Neurologic: No aphasia. No facial droop. No change in mentation. No head injury. No headache. No paralysis. No paresthesia. Psychiatric: positive for depression Endocrine: No abnormal blood sugars. No weight change. No excessive sweating or thirst. No cold intolerance. PHYSICAL EXAMINATION Gen: This is an 82-year-old obese female. She is resting and appears to be comfortable and in no acute distress. HEENT: Head is atraumatic, normocephalic. Pupils equal, round. Sclerae is anicteric. NECK: Supple. No JVD. No lymphadenopathy. No thyromegaly. LUNGS: Clear to auscultation. No wheezes or rhonchi. No intercostal retractions. HEART: First heart sound is depressed, second heart sound is normal, 2/6 systolic ejection murmur at the left sternal border. ABDOMEN: Soft, mild tenderness to the epigastric area, no rebound or guarding positive bowel sounds EXTREMITIES: No pedal edema. No calf tenderness, DP+2 bilaterally NEUROLOGICAL: Patient is awake, alert and oriented to person and place, CN II- XII are grossly intact muscle power 4/5 in bilateral upper and lower extremities. ASSESSMENT AND PLAN 1. Metabolic encephalopathy secondary to UTI with sepsis. Ruled out for acute ischemic event.. appears much better we will continue with present treatment plan with Azactam 2 gr IVPB Q 12 h final results E. coli that is resistant to fluoroquinolones and sulfa continue with Azactam 2 g IV piggyback every 12 hours for the next 7 days midline we will replace and patient can be transferred to [facility] on the [place] or [facility] tomorrow morning. 2. Paroxysmal Atrial fibrillation. we will continue with Eliquis 5 mg po bid and we will continue to monitor 3. Recent urinary tract infection. last one was E.Coli with Fluoroquinolone resistance, await the final results of cultures 4. Hypertensionand hypertensive cardiovascular disease. continue patient on hydrochlorothiazide 12.5 mg daily. Continue patient on losartan 100 mg daily. 5. Hyperlipidemia. we will continue Atorvastatin 40 mg po daily 6. Diabetes mellitus type 2. Continue patient on add NovoLog scale before meals and at bedtime, we will continue wit Farxiga 5 mg po daily 7. Diabetic polyneuropathy. Continue Duloxetin 60 mg po daily 8. 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 Continue baclofen 10 mg 3 times daily as needed, added back her [place] 9. Idiopathic gout. Continue allopurinol 100 mg daily. 10. Obstructive sleep apnea. Continue CPAP. 11. GI prophylaxis and gastroesophageal reflux disease. Continue Protonix 40 mg po daily 12. DVT prophylaxis. we will continue with Protonix 40 mg po daily. 13. 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 No need for any surgical intervention at this time. C. diff is negative 14. Acute kidney injury likely due to ATN. better. 15. PT/OT evaluation 16. ECF tomorrow morning. Objective - Vital Signs Vital signs: Vital Signs Temp 97.9 F 01/07/23 13:57 Pulse 99 01/07/23 13:57 Resp 16 01/07/23 13:57 BP 115/75 01/07/23 13:57 Pulse Ox 94 L 01/07/23 13:57 FiO2 Intake & Output 01/06/23 01/07/23 01/07/23 18:59 06:59 18:59 Intake Total 540 Output Total 300 900 Balance -300 -360 Intake: Oral 540 Output: Urine 300 900 Other: Voiding Method External Catheter External Catheter External Catheter - Labs CBC & Chem 7: 01/07/23 11:23 01/07/23 11:23 Labs: Abnormal Lab Results - Last 24 Hours (Table) 01/07/23 01/07/23 Range/Units 11:23 11:23 MCHC 30.8 L (31.0-37.0) g/dL Lymphocytes # 0.6 L (1.0-4.8) k/uL BUN 19 H (7-17) mg/dL Glucose 131 H (74-99) mg/dL Total Protein 6.0 L (6.3-8.2) g/dL Microbiology - Last 24 Hours (Table) 01/03/23 13:45 Blood Culture - Preliminary Blood 01/03/23 13:45 Blood Culture - Preliminary Blood
[2023-01-07] MEDS: MELATONIN 5 MG TABLET PO SCH (20:20)
[2023-01-07] MEDS: ATORVASTATIN 40 MG TAB PO SCH (20:20)
[2023-01-07] MEDS: FAMOTIDINE 20 MG TAB PO SCH (20:20)
[2023-01-07] MEDS: BACLOFEN 10 MG TAB PO PRN (23:52)
[2023-01-08] MEDS: HYDROcodone/APAP 10-325MG 1 EACH TAB PO PRN ×2 (06:06→20:12)
[2023-01-08] MEDS: AZTREONAM 2 GM in SODIUM CHLORIDE 0.9% 100 ML IVPB SCH ×2 (08:25→20:12)
[2023-01-08] MEDS: METOCLOPRAMIDE 5 MG/ML 2 ML VIAL IVP PRN (08:25)
[2023-01-08] MEDS: LOSARTAN 50 MG TAB PO SCH (08:26)
[2023-01-08] MEDS: BACLOFEN 10 MG TAB PO PRN ×2 (08:26→20:11)
[2023-01-08] MEDS: hydroCHLOROthiazide 12.5 MG CAP PO SCH (08:26)
[2023-01-08] MEDS: PANTOPRAZOLE 40 MG TABLET PO SCH (08:26)
[2023-01-08] MEDS: DULoxetine HCL 60 MG CAPSULE.DR PO SCH (08:26)
[2023-01-08] MEDS: LACTOBACILLUS ACIDOPH & BULGAR 1 EACH PACKET PO SCH (08:26)
[2023-01-08] MEDS: APIXABAN 5 MG TAB PO SCH ×2 (08:26→20:12)
[2023-01-08] MEDS: allopurinoL 100 MG TAB PO SCH (08:26)
[2023-01-08] MEDS: CHOLECALCIFEROL 25 MCG (1000 IU) TABLET PO SCH (08:26)
[2023-01-08] MEDS: DAPAGLIFLOZIN PROPANEDIOL 5 MG TABLET PO SCH (08:26)
--- NOTE | 2023-01-08 14:09 | P.DS ---
Providers Date of admission: 01/03/23 13:37 Expected date of discharge: 01/08/23 Attending physician: Olya Austin Consults: 01/03/23 14:57 Consult Physician Routine Consulting Provider: Nacho Perales Consult Reason/Comments: UTI, multiple abx allergies Do you want consulting provider notified?: Yes 01/03/23 15:32 Consult Physician Stat Consulting Provider: Gus Pizano Consult Reason/Comments: possible TIA Do you want consulting provider notified?: Yes Primary care physician: Olya Austin Hospital Course: HISTORY OF PRESENT ILLNESS This is an 82-year-old female patient with PMH of HTN, HLD, gastroesophageal reflux disease, diabetes mellitus type 2, 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 Patient was recently hospitalized at [facility] after she was admitted for metabolic encephalopathy due possible TIA/CVA and had paroxysmal atrial for ablation at that time she was seen in consultation by neurology as well as cardiology, patient apparently was in her usual state of health. Yesterday she woke up in the morning and she had breakfast and after that she became quite lethargic and unresponsive apparently she lives in assisted living facility, so they have contacted EMS brought the patient to the emergency department for evaluation, she was quite obtunded initially, she was given IV fluid resuscitation, she was found to have a urinary tract infection initially the working diagnosis was UTI with sepsis, triggering that on encephalopathy, however the patient stated that she was not able to find the appropriate words therefore she was treated like she is having a transient ischemic attack rule out acute ischemic event, computed tomography scan of the brain did not show evidence of acute infarct patient was admitted to the hospital she was started on IV antibiotic in the form of Azactam 2gr IVPB q 12 hours due to her multiple ALLERGIES, and due to her past culture that showed E. coli that is resistant to fluoroquinolones, patient was admitted to the hospital infectious disease consultation was obtained along with neurology consultation she was placed on neuro check around the clock. 01/04: Patient is feeling a lot better today, she is sitting up in bed in no apparent distress she continues to have some pain in the lower back as well as right knee, she is requesting her [place] back, she denies any abdominal pain, nausea vomiting or diarrhea, she was seen earlier by neurology was recommended to continue current treatment plan, patient would be to have an MRI as an outpatient, continue IV antibiotic for now, culture still pending, overall she is doing a lot better than yesterday, computed tomography scan of the abdomen and pelvis did not show evidence of acute of normalities history 01/05: Patient is laying down in bed in no apparent distress, she denies any chest, she is a bit short of breath, she denies any abdominal pain, nausea vomiting or diarrhea she seems to be tolerating her treatment very well, patient will remain in the hospital, urine cultures pending. We will continue toward the patient at this point in time, monitor the patient very closely. 01/06: Patient is sitting up in bed she is complaining of increased nausea today, no vomiting, she did have a slightly bowel movement, she denies any fever or chills at this time, she continues to have these symptoms on and off for the past few years, computed tomography scan of the abdomen did not show evidence of acute of normalities, we'll arrange for HIDA scan with [facility], for tomorrow morning, continue Zofran 4 mg IV push every 6 hours as needed, continue metoclopramide 5 mg push every 6 hours as needed, based on the result of the HIDA scan she may need to go for laparoscopic cholecystectomy. This will be done as an outpatient 01/07: Patient appears to be a bit confused today, she denies any chest pain, or shortness breath, she continues to be somewhat the with poor appetite, she is given a try to eat better today, she had HIDA scan that was negative for biliary dyskinesia did show hyperactive gallbladder with elevated ejection fraction, her final urine culture showed E. coli that is resistant to quinolones and sulfa patient is ALLERGIC to penicillin and cephalosporin, he was recommended by infectious disease to put a midline to continue 7 day course of Azactam 2 g IV piggyback every 12 hours. Patient will likely be discharged to [facility] by [facility] for morning spoke with her daughter and she is in agreement with the plan. Discharge diagnoses 1. Metabolic encephalopathy secondary to UTI with sepsis. 2. Paroxysmal Atrial fibrillation. 3. Recent urinary tract infection. last one was E.Coli with Fluoroquinolone and sulfa resistance with ALLERGIES to penicillin and cephalosporins. 4. Hypertensionand hypertensive cardiovascular disease. 5. Hyperlipidemia. 6. Diabetes mellitus type 2. 7. Diabetic polyneuropathy. 8. 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 9. Idiopathic gout. 10. Obstructive sleep apnea. 11. GI prophylaxis and gastroesophageal reflux disease. 12. 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 No need for any surgical intervention at this time. 13. Acute kidney injury likely due to ATN. 14. Medical debility. Physical therapy and subacute rehabilitation. Patient Condition at Discharge: Stable Plan - Discharge Summary New Discharge Prescriptions: No Action Baclofen [Lioresal] 10 mg PO TID PRN PRN Reason: Muscle Spasm allopurinoL [Zyloprim] 100 mg PO DAILY Famotidine 20 - 40 mg PO HS PRN PRN Reason: ACID REFLUX Omeprazole [PriLOSEC] 40 mg PO DAILY Losartan Potassium [Cozaar] 100 mg PO DAILY Dapagliflozin Propanediol [Farxiga] 5 mg PO DAILY #30 tab Apixaban [Eliquis] 5 mg PO BID #60 tab Multivit-Min/Iron/Folic/Lutein [Centrum Silver Women Tablet] 1 tab PO DAILY Vitamin B Complex 1 cap PO DAILY Ubidecarenone [Coenzyme Q10] 200 mg PO DAILY L.acidoph,Paracasei, B.lactis [Probiotic] 1 cap PO DAILY Acetaminophen Tab [Tylenol] 1,000 mg PO QID PRN PRN Reason: Fever And/ Or Pain Cholecalciferol [Vitamin D3 (25 Mcg = 1000 Iu)] 25 mcg PO DAILY hydroCHLOROthiazide 12.5 mg PO DAILY HYDROcodone/APAP 10-325MG [[place] 10-325] 1 tab PO QID PRN #12 tab PRN Reason: Pain Pregabalin [Lyrica] 150 mg PO BID #6 cap DULoxetine HCL [Cymbalta] 60 mg PO DAILY Atorvastatin [Lipitor] 40 mg PO HS Discharge Medication List Baclofen [Lioresal] 10 mg PO TID PRN 09/21/20 [History] allopurinoL [Zyloprim] 100 mg PO DAILY 09/21/20 [History] Acetaminophen Tab [Tylenol] 1,000 mg PO QID PRN 11/04/22 [History] Cholecalciferol [Vitamin D3 (25 Mcg = 1000 Iu)] 25 mcg PO DAILY 11/04/22 [History] Famotidine 20 - 40 mg PO HS PRN 11/04/22 [History] L.acidoph,Paracasei, B.lactis [Probiotic] 1 cap PO DAILY 11/04/22 [History] Losartan Potassium [Cozaar] 100 mg PO DAILY 11/04/22 [History] Omeprazole [PriLOSEC] 40 mg PO DAILY 11/04/22 [History] Ubidecarenone [Coenzyme Q10] 200 mg PO DAILY 11/04/22 [History] Vitamin B Complex 1 cap PO DAILY 11/04/22 [History] hydroCHLOROthiazide 12.5 mg PO DAILY 11/04/22 [History] Apixaban [Eliquis] 5 mg PO BID #60 tab 11/13/22 [Rx] Dapagliflozin Propanediol [Farxiga] 5 mg PO DAILY #30 tab 11/13/22 [Rx] HYDROcodone/APAP 10-325MG [[place] 10-325] 1 tab PO QID PRN #12 tab 11/13/22 [Rx] Pregabalin [Lyrica] 150 mg PO BID #6 cap 11/13/22 [Rx] Atorvastatin [Lipitor] 40 mg PO HS 01/03/23 [History] DULoxetine HCL [Cymbalta] 60 mg PO DAILY 01/03/23 [History] Multivit-Min/Iron/Folic/Lutein [Centrum Silver Women Tablet] 1 tab PO DAILY 01/03/23 [History] Follow up Appointment(s)/Referral(s): Olya Austin MD [Primary Care Provider] - 1-2 days Discharge/Stand Alone Forms: Who Do I Call?, Community Resources, Help In The Home
--- NOTE | 2023-01-08 14:31 | P.PN ---
Subjective Progress Note Date: 01/08/23 Principal diagnosis: UTI Patient is a 84-year-old female with multiple comorbidities presenting to the hospital with weakness and concern for difficulty speaking finding the words patient noticed to have a positive concerning for symptomatic UTI. Patient did have abdominal symptoms and the patient did have a HIDA scan completed on 01/07/2023 concerning for hyperkinetic gallbladder On today's evaluation that is 01/08/2023, the patient continues to be afebrile, patient is breathing comfortably on room air, the patient denies chest pain no cough, the patient has been complaining of nausea but no vomiting also have frequent bowel movements however they are not loose Objective - Vital Signs Vital signs: Vital Signs Temp 98.5 F 01/08/23 07:25 Pulse 88 01/08/23 07:25 Resp 16 01/08/23 07:25 BP 133/78 01/08/23 07:25 Pulse Ox 92 L 01/08/23 07:25 FiO2 Intake & Output 01/07/23 01/08/23 01/08/23 18:59 06:59 18:59 Intake Total 100 0 Balance 100 0 Intake: Intake, IV Titration 100 Amount Aztreonam 2 gm In Sodium 100 Chloride 0.9% 100 ml @ 33 .3 mls/hr IVPB Q12HR [facility] Rx#:[id number] Oral 0 Other: Voiding Method External Catheter External Catheter External Catheter # Voids 2 # Bowel Movements 2 - Exam GENERAL DESCRIPTION: An elderly female lying in bed in no distress RESPIRATORY SYSTEM: Unlabored breathing , decreased breath sounds at bases HEART: S1 S2 regular rate and rhythm , ABDOMEN: Soft , no tenderness EXTREMITIES: No edema feet - Labs CBC & Chem 7: 01/07/23 11:23 01/07/23 11:23 Labs: Abnormal Lab Results - Last 24 Hours (Table) 01/07/23 Range/Units 11:34 Stool Lactoferrin POSITIVE A (NEGATIVE) Microbiology - Last 24 Hours (Table) 01/03/23 13:45 Blood Culture - Preliminary Blood 01/03/23 13:45 Blood Culture - Preliminary Blood 01/07/23 11:34 Stool Culture - Preliminary Stool Assessment and Plan (1) Allergy to multiple antibiotics Current Visit: Yes Status: Acute Code(s): Z88.1 - ALLERGY STATUS TO OTHER ANTIBIOTIC AGENTS SNOMED Code(s): 334498584 (2) UTI (urinary tract infection) Current Visit: Yes Status: Acute Code(s): N39.0 - URINARY TRACT INFECTION, SITE NOT SPECIFIED SNOMED Code(s): 48087915 Plan: This was a telehealth visit 1patient presented to hospital mental status changes which is likely multifactorial possible metabolic prerenal patient also have significantly positive UA underlying urinary source not an x-ray likely pulmonary gram- negative pathogen 2-patient with penicillin and cephalosporin allergy that would limit the number of antibiotics safe to use 3-the patient urine culture has been finalized with E. coli and resistant to sulfa and quinolones, patient did have ALLERGY to penicillin and cephalosporin, the patient seemed to have shown clinical improvement with Azactam which should be continued for about a week on discharge 4-frequent bowel movements which are not watery possible antibiotic associated patient be encouraged with yogurt intake will add Questran for symptomatic relief
--- NOTE | 2023-01-08 14:31 | P.PN ---
Subjective Progress Note Date: 01/05/23 Principal diagnosis: UTI Patient is a 84-year-old female with multiple comorbidities presenting to the hospital with weakness and concern for difficulty speaking finding the words patient noticed to have a positive concerning for symptomatic UTI. On today's evaluation that is 01/05/2023, the patient remains to be afebrile, patient is breathing comfortably on room air, the patient denies chest pain no cough, the patient abdominal pain has improved, no diarrhea Objective - Vital Signs Vital signs: Vital Signs Temp 97.5 F L 01/05/23 07:45 Pulse 76 01/05/23 07:45 Resp 16 01/05/23 07:45 BP 140/85 01/05/23 07:45 Pulse Ox 96 01/05/23 07:45 FiO2 Intake & Output 01/04/23 01/05/23 01/05/23 18:59 06:59 18:59 Intake Total 590 Output Total 1500 500 Balance -1500 90 Intake: Oral 590 Output: Urine 1500 500 Other: Voiding Method Bedside Commode Bedside Commode External Catheter # Bowel Movements 1 - Exam An elderly female lying in bed in no distress Lungs clear to auscultation Abdomen soft Exam compared with the help of DECALER - Labs CBC & Chem 7: 01/05/23 05:15 01/05/23 05:15 Labs: Abnormal Lab Results - Last 24 Hours (Table) 01/05/23 Range/Units 05:15 Carbon Dioxide 28.2 H (20.0-27.5) mmol/L Anion Gap 9.90 L (10.00-18.00) mmol/L Est GFR (CKD-EPI)AfAm 57.4 L (60.0-200.0) Est GFR (CKD-EPI)NonAf 49.6 L (60.0-200.0) BUN/Creatinine Ratio 20.66 H (12.00-20.00) Ratio Glucose 137 H (70-110) mg/dL Total Protein 5.4 L (6.2-8.2) g/dL Albumin 3.5 L (3.8-4.9) g/dL Microbiology - Last 24 Hours (Table) 01/03/23 13:45 Blood Culture - Preliminary Blood 01/03/23 13:45 Blood Culture - Preliminary Blood 01/03/23 12:51 Urine Culture - Preliminary Urine,Voided Assessment and Plan (1) Allergy to multiple antibiotics Current Visit: Yes Status: Acute Code(s): Z88.1 - ALLERGY STATUS TO OTHER ANTIBIOTIC AGENTS SNOMED Code(s): 502103752 (2) UTI (urinary tract infection) Current Visit: Yes Status: Acute Code(s): N39.0 - URINARY TRACT INFECTION, SITE NOT SPECIFIED SNOMED Code(s): 76647914 Plan: This was a telehealth visit 1patient presented to hospital mental status changes which is likely multifactorial possible metabolic prerenal patient also have significantly positive UA underlying urinary source not an x-ray likely pulmonary gram- negative pathogen 2-patient with penicillin and cephalosporin allergy that would limit the number of antibiotics safe to use 3-the patient urine culture currently growing gram-negative with the sensitivities pending, patient to continue 2 g every 12 hours while waiting for the culture to finalize Time with Patient: Less than 30
[2023-01-08] MEDS: CHOLESTYRAMINE (WITH SUGAR) 4 GM PACKET PO SCH (16:10)
--- NOTE | 2023-01-08 17:42 | P.PN ---
Subjective Progress Note Date: 01/08/23 HISTORY OF PRESENT ILLNESS This is an 82-year-old female patient with PMH of HTN, HLD, gastroesophageal reflux disease, diabetes mellitus type 2, spondylosis of the lumbar spine with r adiculopathy, osteoarthritis of the knees, idiopathic gout, diabetic polyneuropathy, obstructive sleep apnea. Patient was recently hospitalized at [facility] after she was admitted for metabolic encephalopathy due possible TIA/CVA and had paroxysmal atrial for ablation at that time she was seen in consultation by neurology as well as cardiology, patient apparently was in her usual state of health. Yesterday she woke up in the morning and she had breakfast and after that she became quite lethargic and unresponsive apparently she lives in assisted living facility, so they have contacted EMS brought the patient to the emergency department for evaluation, she was quite obtunded initially, she was given IV fluid resuscitation, she was found to have a urinary tract infection initially the working diagnosis was UTI with sepsis, triggering that on encephalopathy, however the patient stated that she was not able to find the appropriate words therefore she was treated like she is having a transient ischemic attack rule out acute ischemic event, computed tomography scan of the brain did not show evidence of acute infarct patient was admitted to the hospital she was started on IV antibiotic in the form of Azactam 2gr IVPB q 12 hours due to her multiple ALLERGIES, and due to her past culture that showed E. coli that is resistant to fluoroquinolones, patient was admitted to the hospital infectious disease consultation was obtained along with neurology consultation she was placed on neuro check around the clock. 01/04: Patient is feeling a lot better today, she is sitting up in bed in no apparent distress she continues to have some pain in the lower back as well as right knee, she is requesting her [place] back, she denies any abdominal pain, nausea vomiting or diarrhea, she was seen earlier by neurology was recommended to continue current treatment plan, patient would be to have an MRI as an outpatient, continue IV antibiotic for now, culture still pending, overall she is doing a lot better than yesterday, computed tomography scan of the abdomen and pelvis did not show evidence of acute of normalities history 01/05: Patient is laying down in bed in no apparent distress, she denies any chest, she is a bit short of breath, she denies any abdominal pain, nausea vo miting or diarrhea she seems to be tolerating her treatment very well, patient will remain in the hospital, urine cultures pending. We will continue toward the patient at this point in time, monitor the patient very closely. 01/06: Patient is sitting up in bed she is complaining of increased nausea today, no vomiting, she did have a slightly bowel movement, she denies any fever or chills at this time, she continues to have these symptoms on and off for the past few years, computed tomography scan of the abdomen did not show evidence of acute of normalities, we'll arrange for HIDA scan with [facility], for tomorrow morning, continue Zofran 4 mg IV push every 6 hours as needed, continue metoclopramide 5 mg push every 6 hours as needed, based on the result of the HIDA scan she may need to go for laparoscopic cholecystectomy. This will be done as an outpatient 01/07: Patient appears to be a bit confused today, she denies any chest pain, or shortness breath, she continues to be somewhat the with poor appetite, she is given a try to eat better today, she had HIDA scan that was negative for biliary dyskinesia did show hyperactive gallbladder with elevated ejection fraction, her final urine culture showed E. coli that is resistant to quinolones and sulfa patient is ALLERGIC to penicillin and cephalosporin, he was recommended by infectious disease to put a midline to continue 7 day course of Azactam 2 g IV piggyback every 12 hours. Patient will likely be discharged to [facility] or by [facility] for morning spoke with her daughter and she is in agreement with the plan. 01/08: Medline was not done, patient stated it was attempted ysterday but there is no documntation, we will finish up IV Azactam in AM so there is no need for Midline, discussed with patient and her daughter that we are awaiting the Prior Auth for ECF hopefully in AM REVIEW OF SYSTEMS Constitutional: No fever, no chills, no night sweats. No weight change. positive for generalized weakness,no fatigue or lethargy. No daytime sleepiness. HEENT: No headache. No blurred vision or double vision, no loss of vision. Chronic loss of Hearing, no ringing in the ears, no dizziness. No nasal drai nage or congestion. No epistaxis. No sore throat. Lungs: No shortness of breath, cough, no sputum production. No wheezing. Cardiovascular: No chest pain, no lower extremity edema. No palpitations. No paroxysmal nocturnal dyspnea. No orthopnea. No lightheadedness or dizziness. No syncopal episodes. Abdominal: positive for abdominal pain. positive for nausea, vomiting. positive for slimy diarrhea. No constipation. No bloody or tarry stools. positive for loss of appetite. Genitourinary: No dysuria, increased frequency, urgency. No urinary retention. Musculoskeletal: No myalgias. Noted muscle weakness, noted gait dysfunction, fall at home. No back pain. No neck pain. Integumentary: No wounds. No rash or pruritus. positive for bruising. No change in hair or nails. Neurologic: No aphasia. No facial droop. No change in mentation. No head injury. No headache. No paralysis. No paresthesia. Psychiatric: positive for depression Endocrine: No abnormal blood sugars. No weight change. No excessive sweating or thirst. No cold intolerance. PHYSICAL EXAMINATION Gen: This is an 82-year-old obese female. She is resting and appears to be comfortable and in no acute distress. HEENT: Head is atraumatic, normocephalic. Pupils equal, round. Sclerae is anicteric. NECK: Supple. No JVD. No lymphadenopathy. No thyromegaly. LUNGS: Clear to auscultation. No wheezes or rhonchi. No intercostal retractions. HEART: First heart sound is depressed, second heart sound is normal, 2/6 systolic ejection murmur at the left sternal border. ABDOMEN: Soft, mild tenderness to the epigastric area, no rebound or guarding positive bowel sounds EXTREMITIES: No pedal edema. No calf tenderness, DP+2 bilaterally NEUROLOGICAL: Patient is awake, alert and oriented to person and place, CN II- XII are grossly intact muscle power 4/5 in bilateral upper and lower extremities. ASSESSMENT AND PLAN 1. Metabolic encephalopathy secondary to UTI with sepsis. Ruled out for acute ischemic event.. appears much better we will continue with present treatment plan with Azactam 2 gr IVPB Q 12 h final results E. coli that is resistant to fluoroquinolones and sulfa continue with Azactam 2 g IV piggyback every 12 hours for one more day patient can be transferred to [facility] on the [place] or [facility] tomorrow morning. 2. Paroxysmal Atrial fibrillation. we will continue with Eliquis 5 mg po bid and we will continue to monitor 3. Recent urinary tract infection. last one was E.Coli with Fluoroquinolone resistance, await the final results of cultures 4. Hypertensionand hypertensive cardiovascular disease. continue patient on hydrochlorothiazide 12.5 mg daily. Continue patient on losartan 100 mg daily. 5. Hyperlipidemia. we will continue Atorvastatin 40 mg po daily 6. Diabetes mellitus type 2. Continue patient on add NovoLog scale before meals and at bedtime, we will continue wit Farxiga 5 mg po daily 7. Diabetic polyneuropathy. Continue Duloxetin 60 mg po daily 8. 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 Continue baclofen 10 mg 3 times daily as needed, added back her [place] 9. Idiopathic gout. Continue allopurinol 100 mg daily. 10. Obstructive sleep apnea. Continue CPAP. 11. GI prophylaxis and gastroesophageal reflux disease. Continue Protonix 40 mg po daily 12. DVT prophylaxis. we will continue with Protonix 40 mg po daily. 13. 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 No need for any surgical intervention at this time. C. diff is negative 14. Acute kidney injury likely due to ATN. better. 15. PT/OT evaluation in progress 16. ECF tomorrow morning. 17. Diarrhea. continue with Questran. 18 Family updated. Objective - Vital Signs Vital signs: Vital Signs Temp 98.6 F 01/08/23 11:09 Pulse 91 01/08/23 11:09 Resp 16 01/08/23 11:09 BP 149/82 01/08/23 11:09 Pulse Ox 97 01/08/23 11:09 FiO2 Intake & Output 01/07/23 01/08/23 01/08/23 18:59 06:59 18:59 Intake Total 100 0 Balance 100 0 Intake: Intake, IV Titration 100 Amount Aztreonam 2 gm In Sodium 100 Chloride 0.9% 100 ml @ 33 .3 mls/hr IVPB Q12HR [facility] Rx#:[id number] Oral 0 Other: Voiding Method External Catheter External Catheter External Catheter # Voids 2 1 # Bowel Movements 2 3 - Labs CBC & Chem 7: 01/07/23 11:23 01/07/23 11:23 Labs: Abnormal Lab Results - Last 24 Hours (Table) 01/07/23 Range/Units 11:34 Stool Lactoferrin POSITIVE A (NEGATIVE) Microbiology - Last 24 Hours (Table) 01/03/23 13:45 Blood Culture - Preliminary Blood 01/03/23 13:45 Blood Culture - Preliminary Blood 01/07/23 11:34 Stool Culture - Preliminary Stool
[2023-01-08] MEDS: FAMOTIDINE 20 MG TAB PO SCH (18:11)
[2023-01-08] MEDS: ATORVASTATIN 40 MG TAB PO SCH (20:12)
[2023-01-09] MEDS: HYDROcodone/APAP 10-325MG 1 EACH TAB PO PRN ×3 (02:03→15:45)
[2023-01-09 02:56] VITALS: RESP 16
[2023-01-09 07:41] LABS: Glucose,Whole Blood 127 mg/dL (70-110)
[2023-01-09] MEDS: PANTOPRAZOLE 40 MG TABLET PO SCH (09:11)
[2023-01-09] MEDS: CHOLECALCIFEROL 25 MCG (1000 IU) TABLET PO SCH (09:12)
[2023-01-09] MEDS: allopurinoL 100 MG TAB PO SCH (09:12)
[2023-01-09] MEDS: LOSARTAN 50 MG TAB PO SCH (09:12)
[2023-01-09] MEDS: DULoxetine HCL 60 MG CAPSULE.DR PO SCH (09:12)
[2023-01-09] MEDS: APIXABAN 5 MG TAB PO SCH (09:12)
[2023-01-09] MEDS: AZTREONAM 2 GM in SODIUM CHLORIDE 0.9% 100 ML IVPB SCH (09:14)
[2023-01-09] MEDS: hydroCHLOROthiazide 12.5 MG CAP PO SCH (09:14)
[2023-01-09] MEDS: CHOLESTYRAMINE (WITH SUGAR) 4 GM PACKET PO SCH (09:15)
[2023-01-09] MEDS: DAPAGLIFLOZIN PROPANEDIOL 5 MG TABLET PO SCH (09:17)
[2023-01-09] MEDS: LACTOBACILLUS ACIDOPH & BULGAR 1 EACH PACKET PO SCH (10:48)
[2023-01-09 10:57] LABS: Basophils # (A) 0.02 X 10*3/uL (0.00-0.10); Basophils % (A) 0.3 %; Eosinophils # (A) 0.13 X 10*3/uL (0.04-0.35); Eosinophils % (A) 2.1 %; HGB 14.8 g/dL (12.0-15.0); Immature Grans, Automated 0.3 %; Lymphocytes # (A) 0.66 X 10*3/uL (0.90-5.00); Lymphocytes % (A) 10.9 %; MCHC 35.2 g/dL (32.0-37.0); MCV 90.7 fL (80.0-97.0); Mean Platelet Volume 11.2 fL (9.5-12.2); Monocytes # (A) 0.81 X 10*3/uL (0.20-1.00); Monocytes % (A) 13.3 %; NRBC Per 100 WBC 0 /100 WBCS (0.0-0.0); Neutrophils # (A) 4.44 X 10*3/uL (1.80-7.70); Neutrophils % (A) 73.1 %; Platelet Count 216 X 10*3/uL (140-440); RBC 4.63 X 10*6/uL (4.10-5.20); RDW 14.6 % (11.5-14.5); WBC 6.08 X 10*3/uL (4.50-10.00)
[2023-01-09 11:15] LABS: Glucose,Whole Blood 152 mg/dL (70-110)
[2023-01-09 12:45] LABS: African American GFR (CKD) 99.8 (60.0-200.0); Albumin 3.7 g/dL (3.8-4.9); Albumin/Globulin Ratio 1.85 (1.60-3.17); Anion Gap 14.2 mmol/L (10.00-18.00); BUN/Creat Ratio 16.17 Ratio (12.00-20.00); Blood Urea Nitrogen 9.7 mg/dL (9.0-27.0); Carbon Dioxide 22.8 mmol/L (20.0-27.5); Non-African American GFR(CKD) 86.1 (60.0-200.0); Potassium 3.8 mmol/L (3.5-5.5); Total Bilirubin 0.3 mg/dL (0.30-1.20); Total Protein 5.7 g/dL (6.2-8.2)
[2023-01-09 12:57] VITALS: BP 153/103; PULSE 70; TEMP 97.6
--- NOTE | 2023-01-09 14:33 | P.PN ---
Subjective Progress Note Date: 01/09/23 Principal diagnosis: UTI Patient is a 84-year-old female with multiple comorbidities presenting to the hospital with weakness and concern for difficulty speaking finding the words patient noticed to have a positive concerning for symptomatic UTI. On today's evaluation that is 01/09/2023, the patient denies any fever or any chills, patient is breathing comfortably on room air, the patient denies chest pain no cough, the patient has been complaining of some nausea but no vomiting, abdominal pain has improved, no loose stools reported Objective - Vital Signs Vital signs: Vital Signs Temp 98.0 F 01/09/23 07:26 Pulse 100 01/09/23 07:26 Resp 16 01/09/23 07:26 BP 159/85 01/09/23 07:26 Pulse Ox 94 L 01/09/23 07:26 FiO2 Intake & Output 01/08/23 01/09/23 01/09/23 18:59 06:59 18:59 Intake Total 900 Output Total 400 1100 Balance 500 -1100 Intake: Intake, IV Titration 100 Amount Aztreonam 2 gm In Sodium 100 Chloride 0.9% 100 ml @ 33 .3 mls/hr IVPB Q12HR [facility] Rx#:[id number] Oral 800 Output: Urine 400 1100 Other: Voiding Method External Catheter External Catheter # Voids 2 # Bowel Movements 1 - Exam An elderly female lying in bed in no distress Lungs clear to auscultation Abdomen soft Exam compared with the help of ACCOUNTING MACHINE MECHANIC - Labs CBC & Chem 7: 01/09/23 07:21 01/09/23 07:21 Labs: Abnormal Lab Results - Last 24 Hours (Table) 01/09/23 01/09/23 01/09/23 Range/Units 07:21 07:40 11:13 RDW 14.6 H (11.5-14.5) % Lymphocytes # 0.66 L (0.90-5.00) X 10*3/uL POC Glucose (mg/dL) 127 H 152 H (70-110) mg/dL Microbiology - Last 24 Hours (Table) 01/03/23 13:45 Blood Culture - Final Blood 01/03/23 13:45 Blood Culture - Final Blood Assessment and Plan (1) Allergy to multiple antibiotics Current Visit: Yes Status: Acute Code(s): Z88.1 - ALLERGY STATUS TO OTHER ANTIBIOTIC AGENTS SNOMED Code(s): 949487259 (2) UTI (urinary tract infection) Current Visit: Yes Status: Acute Code(s): N39.0 - URINARY TRACT INFECTION, SITE NOT SPECIFIED SNOMED Code(s): 25853726 Plan: 1patient presented to hospital mental status changes which is likely multifactorial possible metabolic prerenal patient also have significantly pos itive UA underlying urinary source not an x-ray likely pulmonary gram-negative pathogen 2-patient with penicillin and cephalosporin allergy that would limit the number of antibiotics safe to use 3Patient seemed to showing clinical improvement and will continue with Azactam 2 g every 12 hours for 7 days on discharge and close outpatient follow-up Time with Patient: Less than 30
== END 2023-01-09 18:15 | DRG 871 ==
LOC: EC 11:23 → 5NMEDONC 13:37
PROVIDERS: ADMIT Internal Medicine; ATTEND Internal Medicine
PROC: 05H933Z Insertion of Infusion Device into Right Brachial Vein, Percutaneous Approach (ICD-10-PCS; principal; 2023-01-09 13:30)
DX: A41.51 Sepsis due to Escherichia coli [E. coli] (principal); G93.41 Metabolic encephalopathy; N17.0 Acute kidney failure with tubular necrosis; N39.0 Urinary tract infection, site not specified; E11.42 Type 2 diabetes mellitus with diabetic polyneuropathy; E78.5 Hyperlipidemia, unspecified; G47.33 Obstructive sleep apnea (adult) (pediatric); I11.9 Hypertensive heart disease without heart failure; I48.0 Paroxysmal atrial fibrillation; K21.9 Gastro-esophageal reflux disease without esophagitis; M10.00 Idiopathic gout, unspecified site; M17.0 Bilateral primary osteoarthritis of knee; M47.26 Other spondylosis with radiculopathy, lumbar region; E66.9 Obesity, unspecified; K82.8 Other specified diseases of gallbladder; M79.7 Fibromyalgia; Z68.34 Body mass index [BMI] 34.0-34.9, adult; Z79.01 Long term (current) use of anticoagulants; Z79.84 Long term (current) use of oral hypoglycemic drugs; Z79.899 Other long term (current) drug therapy; Z88.0 Allergy status to penicillin; Z88.1 Allergy status to other antibiotic agents; Z98.1 Arthrodesis status
CPT/HCPCS: 36410; 36415; 70450; 71046; 74176; 76937; 78227; 80048; 80053; 81001; 82140; 82272; 82607; 83605; 83630; 83690; 83880; 84443; 84484; 85025; 85610; 85730; 87040; 87045; 87046; 87077; 87086; 87186; 87324; 87338; 93005; 94760; 96365; 96375; 99285

== ENCOUNTER 2023-02-20 15:33 | Emergency (ER) | payer MEDICARE, OTHER ==
--- NOTE | 2023-02-20 16:39 | ED ---
General Adult HPI - General Chief complaint: Recheck/Abnormal Lab/Rx Stated complaint: Swelling in legs and feet Time Seen by Provider: 02/20/23 16:08 Source: patient, RN notes reviewed Mode of arrival: ambulatory Limitations: no limitations - History of Present Illness Initial comments: Female presents emergency department chief complaining of bilateral lower extremity edema 1 week. Patient states that she runs her primary care provider last week and was given a higher dose of her diuretic hydrochlorothiazide which she has been taking as prescribed but continues to have increased lower extremity edema. Past medical history includes hypertension, hyperlipidemia, A. fib. She states that she was diagnosed with A. fib in November and has been on El iquis since November. She states she is taking it as prescribed. Denies fever, chills. Denies chest pain. Denies abdominal pain. - Related Data Home Medications Medication Instructions Recorded Confirmed Baclofen [Lioresal] 10 mg PO TID PRN 09/21/20 02/20/23 allopurinoL [Zyloprim] 100 mg PO DAILY 09/21/20 02/20/23 Cholecalciferol [Vitamin D3 (25 25 mcg PO DAILY 11/04/22 02/20/23 Mcg = 1000 Iu)] Famotidine 20 - 40 mg PO HS PRN 11/04/22 02/20/23 L.acidoph,Paracasei, B.lactis 1 cap PO DAILY 11/04/22 02/20/23 [Probiotic] Losartan Potassium [Cozaar] 100 mg PO DAILY 11/04/22 02/20/23 Omeprazole [PriLOSEC] 40 mg PO DAILY 11/04/22 02/20/23 Ubidecarenone [Coenzyme Q10] 200 mg PO DAILY 11/04/22 02/20/23 Vitamin B Complex 1 cap PO DAILY 11/04/22 02/20/23 DULoxetine HCL [Cymbalta] 60 mg PO DAILY 01/03/23 02/20/23 Multivit-Min/Iron/Folic/Lutein 1 tab PO DAILY 01/03/23 02/20/23 [Centrum Silver Women Tablet] Semaglutide [Ozempic] 0.5 mg SQ DIRECTED 02/20/23 02/20/23 hydroCHLOROthiazide [Hydrodiuril] 25 mg PO DAILY 02/20/23 02/20/23 Previous Rx's Medication Instructions Recorded Apixaban [Eliquis] 5 mg PO BID #60 tab 11/13/22 Dapagliflozin Propanediol [Farxiga] 5 mg PO DAILY #30 tab 11/13/22 HYDROcodone/APAP 10-325MG [[place] 1 tab PO QID PRN #12 tab 01/08/23 10-325] Pregabalin [Lyrica] 150 mg PO BID #6 cap 01/08/23 Furosemide [Lasix] 40 mg PO BID #14 tablet 02/20/23 Potassium Chloride ER [K-Dur 20] 20 meq PO BID #14 tab 02/20/23 Allergies Allergy/AdvReac Type Severity Reaction Status Date / Time cephalexin [From Keflex] Allergy Rash/Hives Verified 02/20/23 16:20 clindamycin Allergy Rash/Hives Verified 02/20/23 16:20 Penicillins Allergy Unknown Verified 02/20/23 16:20 oxybutynin [From Ditropan] AdvReac Hallucinati Verified 02/20/23 16:20 ons Review of Systems ROS Statement: Those systems with pertinent positive or pertinent negative responses have been documented in the HPI. ROS Other: All systems not noted in ROS Statement are negative. Past Medical History Past Medical History: Diabetes Mellitus, GERD/Reflux, Hypertension Additional Past Medical History / Comment(s): UTI, fibromylagia, respiroaty failure History of Any Multi-Drug Resistant Organisms: None Reported Past Surgical History: Back Surgery Additional Past Surgical History / Comment(s): 5 back surgery since 2014. Past Anesthesia/Blood Transfusion Reactions: No Reported Reaction Past Psychological History: No Psychological Hx Reported Smoking Status: Never smoker Past Alcohol Use History: None Reported Past Drug Use History: None Reported General Exam Limitations: no limitations General appearance: alert, in no apparent distress Head exam: Present: atraumatic, normocephalic, normal inspection Eye exam: Present: normal appearance ENT exam: Present: normal exam, mucous membranes moist Neck exam: Present: normal inspection. Absent: tenderness, meningismus, lymphadenopathy Respiratory exam: Present: normal lung sounds bilaterally. Absent: respiratory distress, wheezes, rales, rhonchi, stridor Cardiovascular Exam: Present: regular rate, irregular rhythm (A. fib), normal heart sounds. Absent: systolic murmur, diastolic murmur, rubs, gallop, clicks GI/Abdominal exam: Present: soft, normal bowel sounds. Absent: distended, tenderness, guarding, rebound, rigid Extremities exam: Present: full ROM, tenderness, normal capillary refill, pedal edema (2+). Absent: joint swelling, calf tenderness Back exam: Present: normal inspection Neurological exam: Present: alert, oriented X3 Psychiatric exam: Present: normal affect, normal mood Skin exam: Present: warm, dry, intact, normal color. Absent: rash Course Vital Signs 02/20/23 02/20/23 02/20/23 15:48 16:48 18:39 Temperature 98.5 F 97.6 F Pulse Rate 96 80 93 Respiratory 18 20 20 Rate Blood Pressure 145/90 107/70 183/96 O2 Sat by Pulse 96 95 95 Oximetry 02/20/23 21:07 Temperature Pulse Rate Respiratory Rate Blood Pressure 142/95 O2 Sat by Pulse 96 Oximetry Medical Decision Making - Medical Decision Making Was pt. sent in by a medical professional or institution (, PA, BANDOLEER STRAIGHTENER STAMPER, urgent care, hospital, or correction...) When possible be specific @ -No Did you speak to anyone other than the patient for history (EMS, parent, family, police, friend...)? What history was obtained from this source @ -No Did you review nursing and triage notes (agree or disagree)? Why? @ -I reviewed and agree with nursing and triage notes Were old charts reviewed (outside hosp., previous admission, EMS record, old EKG, old radiological studies, urgent care reports/EKG's, correction records)? Report findings @ -No old charts were reviewed Differential Diagnosis (chest pain, altered mental status, abdominal pain women, abdominal pain men, vaginal bleeding, weakness, fever, dyspnea, syncope, headache, dizziness, GI bleed, back pain, seizure, CVA, palpatations, mental health, musculoskeletal)? @ -not applicable EKG interpreted by me (3pts min.). @ -EKG at 1602 showed irregular rhythm rate 86, OR 178, QRS 90 X-rays interpreted by me (1pt min.). @ -CXR showed no evidence for acute process CT interpreted by me (1pt min.). @ -None done U/S interpreted by me (1pt. min.). @ -None done What testing was considered but not performed or refused? (CT, X-rays, U/S, labs)? Why? @ -None What meds were considered but not given or refused? Why? @ -None Did you discuss the management of the patient with other professionals (professionals i.e. , PA, BANDOLEER STRAIGHTENER STAMPER, lab, RT, psych nurse, social problems specialist, criminal lawyer, teacher, space operations officer, case consultant)? Give summary @ -Case was discussed with patient's primary care provider Dr. Austin who recommended Lasix by mouth 40 mg twice a day and potassium chloride 20 mcg BID with close follow-up with him in the office next week Was smoking cessation discussed for >3mins.? @ -No Was critical care preformed (if so, how long)? @ -No Were there social determinants of health that impacted care today? How? (Homelessness, low income, unemployed, alcoholism, drug addiction, transportation, low edu. Level, literacy, decrease access to med. care, shelter, rehab)? @ -No Was there de-escalation of care discussed even if they declined (Discuss DNR or withdrawal of care, Hospice)? DNR status @ -No What co-morbidities impacted this encounter? (DM, HTN, Smoking, COPD, CAD, Cancer, CVA, ARF, Chemo, Hep., AIDS, mental health diagnosis, sleep apnea, morbid obesity)? @ -Hypertension, diabetes Was patient admitted / discharged? Hospital course, mention meds given and route, prescriptions, significant lab abnormalities, going to OR and other perti nent info. @ -Discharged. Patient presented to the emergency department chief complaint of lower extremity edema 1 week. Patient states that she sees Dr. Austin who she saw him last week who upped hydrochlorothiazide to 25mg which she has been taking as prescribed. EKG showed irregular rhythm with a rate of 86, patient has a history of A. fib and is on Eliquis. CBC showed normal WBC 6.7, normal hemoglobin and hematocrit; CMP showed sodium 137, potassium 3.9. Patient was w orried that her potassium was low which she was reassured that it was not; BNP 1580; UA showed 8 squamous epithelial cells, 18 white blood cells, 10 red blood cells likely contamination. Patient is not having any urinary symptoms at this time. Chest x-ray showed no evidence for acute process. I spoke with Dr. Austin who recommended the patient restarted on 40 mg of Lasix twice a day and 20 g of potassium chloride twice a day and she will see her in the office early next week. Results of studies were discussed with patient and the conversation with Dr. Austin was relayed. Patient is going to knot picker cloth her medication from the pharmacy when she left the ED. [facility] is agreeable with the plan. Patient stable at time of discharge. Case discussed with my attending, Dr. Suarez Undiagnosed new problem with uncertain prognosis? @ -No Drug Therapy requiring intensive monitoring for toxicity (Heparin, Nitro, Insulin, Cardizem)? @ -No Were any procedures done? @ -No Diagnosis/symptom? @ -Lower extremity edema Acute, or Chronic, or Acute on Chronic? @ -Acute Uncomplicated (without systemic symptoms) or Complicated (systemic symptoms)? @ -Uncomplicated Side effects of treatment? @ -No Exacerbation, Progression, or Severe Exacerbation? @ -No Poses a threat to life or bodily function? How? (Chest pain, [place], [place], pneumonia, PE, COPD, DKA, ARF, appy, cholecystitis, CVA, Diverticulitis, Homicidal, Suicidal, threat to staff... and all critical care pts) @ -No - Lab Data Result diagrams: 02/20/23 16:35 02/20/23 16:35 Lab Results 02/20/23 02/20/23 02/20/23 Range/Units 16:35 16:35 16:35 WBC 6.7 (3.8-10.6) k/uL RBC 4.54 (3.80-5.40) m/uL Hgb 13.7 (11.4-16.0) gm/dL Hct 41.2 (34.0-46.0) % MCV 90.8 (80.0-100.0) fL MCH 30.2 (25.0-35.0) pg MCHC 33.3 (31.0-37.0) g/dL RDW 14.7 (11.5-15.5) % Plt Count 231 (150-450) k/uL MPV 9.2 Neutrophils % 79 % Lymphocytes % 10 % Monocytes % 7 % Eosinophils % 2 % Basophils % 0 % Neutrophils # 5.3 (1.3-7.7) k/uL Lymphocytes # 0.7 L (1.0-4.8) k/uL Monocytes # 0.5 (0-1.0) k/uL Eosinophils # 0.2 (0-0.7) k/uL Basophils # 0.0 (0-0.2) k/uL PT 11.3 (9.0-12.0) sec INR 1.1 (<1.2) APTT 24.8 (22.0-30.0) sec Sodium (137-145) mmol/L Potassium (3.5-5.1) mmol/L Chloride (98-107) mmol/L Carbon Dioxide (22-30) mmol/L Anion Gap mmol/L BUN (7-17) mg/dL Creatinine (0.52-1.04) mg/dL Est GFR (CKD-EPI)AfAm (>60 ml/min/1.73 sqM) Est GFR (CKD-EPI)NonAf (>60 ml/min/1.73 sqM) Glucose (74-99) mg/dL Calcium (8.4-10.2) mg/dL Total Bilirubin (0.2-1.3) mg/dL AST (14-36) U/L ALT (4-34) U/L Alkaline Phosphatase (38-126) U/L NT-Pro-B Natriuret Pep pg/mL Total Protein (6.3-8.2) g/dL Albumin (3.5-5.0) g/dL Urine Color Yellow Urine Appearance Clear (Clear) Urine pH 8.0 (5.0-8.0) Ur Specific [place] 1.020 (1.001-1.035) Urine Protein 1+ H (Negative) Urine Glucose (UA) 2+ H (Negative) Urine Ketones Trace H (Negative) Urine Blood Negative (Negative) Urine Nitrite Negative (Negative) Urine Bilirubin Negative (Negative) Urine Urobilinogen <2.0 (<2.0) mg/dL Ur Leukocyte Esterase Small H (Negative) Urine RBC 10 H (0-5) /hpf Urine WBC 18 H (0-5) /hpf Ur Squamous Epith Cells 8 H (0-4) /hpf Urine Bacteria Rare H (None) /hpf Urine Mucus Rare H (None) /hpf 02/20/23 Range/Units 16:35 WBC (3.8-10.6) k/uL RBC (3.80-5.40) m/uL Hgb (11.4-16.0) gm/dL Hct (34.0-46.0) % MCV (80.0-100.0) fL MCH (25.0-35.0) pg MCHC (31.0-37.0) g/dL RDW (11.5-15.5) % Plt Count (150-450) k/uL MPV Neutrophils % % Lymphocytes % % Monocytes % % Eosinophils % % Basophils % % Neutrophils # (1.3-7.7) k/uL Lymphocytes # (1.0-4.8) k/uL Monocytes # (0-1.0) k/uL Eosinophils # (0-0.7) k/uL Basophils # (0-0.2) k/uL PT (9.0-12.0) sec INR (<1.2) APTT (22.0-30.0) sec Sodium 137 (137-145) mmol/L Potassium 3.9 (3.5-5.1) mmol/L Chloride 102 (98-107) mmol/L Carbon Dioxide 25 (22-30) mmol/L Anion Gap 10 mmol/L BUN 14 (7-17) mg/dL Creatinine 0.61 (0.52-1.04) mg/dL Est GFR (CKD-EPI)AfAm >90 (>60 ml/min/1.73 sqM) Est GFR (CKD-EPI)NonAf 86 (>60 ml/min/1.73 sqM) Glucose 144 H (74-99) mg/dL Calcium 9.5 (8.4-10.2) mg/dL Total Bilirubin 0.8 (0.2-1.3) mg/dL AST 28 (14-36) U/L ALT 20 (4-34) U/L Alkaline Phosphatase 57 (38-126) U/L NT-Pro-B Natriuret Pep 1580 pg/mL Total Protein 6.6 (6.3-8.2) g/dL Albumin 4.0 (3.5-5.0) g/dL Urine Color Urine Appearance (Clear) Urine pH (5.0-8.0) Ur Specific [place] (1.001-1.035) Urine Protein (Negative) Urine Glucose (UA) (Negative) Urine Ketones (Negative) Urine Blood (Negative) Urine Nitrite (Negative) Urine Bilirubin (Negative) Urine Urobilinogen (<2.0) mg/dL Ur Leukocyte Esterase (Negative) Urine RBC (0-5) /hpf Urine WBC (0-5) /hpf Ur Squamous Epith Cells (0-4) /hpf Urine Bacteria (None) /hpf Urine Mucus (None) /hpf Disposition Clinical Impression: Bilateral lower extremity edema Disposition: HOME SELF-CARE Condition: Stable Additional Instructions: Take medication as prescribed. Follow up with Dr. Austin early next week. Return to the emergency department for new or worsening symptoms. Prescriptions: Potassium Chloride ER [K-Dur 20] 20 meq PO BID #14 tab Furosemide [Lasix] 40 mg PO BID #14 tablet Is patient prescribed a controlled substance at d/c from ED?: No Referrals: Olya Austin MD [Primary Care Provider] - 1-2 days Time of Disposition: 20:40
[2023-02-20 16:57] VITALS: RESP 20
[2023-02-20 17:04] LABS: Basophils % (A) 0 %; Eosinophils # (A) 0.2 k/uL (0-0.7); Eosinophils % (A) 2 %; HCT 41.2 % (34.0-46.0); HGB 13.7 gm/dL (11.4-16.0); Lymphocytes # (A) 0.7 k/uL (1.0-4.8); Lymphocytes % (A) 10 %; MCH 30.2 pg (25.0-35.0); MCHC 33.3 g/dL (31.0-37.0); MCV 90.8 fL (80.0-100.0); Mean Platelet Volume 9.2; Monocytes # (A) 0.5 k/uL (0-1.0); Monocytes % (A) 7 %; Neutrophils # (A) 5.3 k/uL (1.3-7.7); Neutrophils % (A) 79 %; Platelet Count 231 k/uL (150-450); RBC 4.54 m/uL (3.80-5.40); RDW 14.7 % (11.5-15.5); WBC 6.7 k/uL (3.8-10.6)
[2023-02-20 17:14] LABS: INR 1.1 (<1.2); Partial Thromboplastin Time 24.8 sec (22.0-30.0); Prothrombin Time 11.3 sec (9.0-12.0)
[2023-02-20 17:22] LABS: ALT 20 U/L (4-34); AST 28 U/L (14-36); African American GFR (CKD) >90 (>60 ml/min/1.73 sqM); Alkaline Phosphatase 57 U/L (38-126); Anion Gap 10 mmol/L; Blood Urea Nitrogen 14 mg/dL (7-17); Calcium 9.5 mg/dL (8.4-10.2); Carbon Dioxide 25 mmol/L (22-30); Chloride 102 mmol/L (98-107); Glucose 144 mg/dL (74-99); Non-African American GFR(CKD) 86 (>60 ml/min/1.73 sqM); Potassium 3.9 mmol/L (3.5-5.1); Sodium 137 mmol/L (137-145); Total Bilirubin 0.8 mg/dL (0.2-1.3); Total Protein 6.6 g/dL (6.3-8.2)
[2023-02-20 17:30] LABS: NT-Pro-B-Type Natriuretic Pept 1580 pg/mL
--- NOTE | 2023-02-20 17:40 | XR ---
EXAMINATION: XR chest 2V: 02/20/2023 5:06 PM CLINICAL INDICATION: le edema TECHNIQUE: AP and lateral COMPARISON: 01/03/2023 FINDINGS: Lungs appear to be clear. The pleural spaces are negative. The cardiac silhouette is not enlarged. The remainder of the mediastinal silhouette is unremarkable. The skeletal structures and soft tissues are negative for acute findings. Limitation of the study: The overlying soft tissues are prominent, limiting visualization/accuracy. IMPRESSION: No definite acute radiographic process.
[2023-02-20 18:40] LABS: Appearance,Urine Clear (Clear); Bacteria,Urine Rare /hpf; Bilirubin,Urine Negative (Negative); Blood,Urine Negative (Negative); Color,Urine Yellow; Glucose,Urine (UA) 2+ (Negative); Ketones,Urine Trace (Negative); Leukocyte Esterase,Urine Small (Negative); Mucus,Urine Rare /hpf; Nitrite,Urine Negative (Negative); Protein,Urine 1+ (Negative); RBC,Urine 10 /hpf (0-5); Squamous Epithelial Cell,Urine 8 /hpf (0-4); Urobilinogen,Urine <2.0 mg/dL (<2.0); WBC,Urine 18 /hpf (0-5)
[2023-02-20 18:46] VITALS: PULSE 93; TEMP 97.6
[2023-02-20 21:08] VITALS: BP 142/95
== END 2023-02-20 21:08 | disposition home or self-care (01) ==
LOC: EC 15:33
DX: R22.43 Localized swelling, mass and lump, lower limb, bilateral (principal); E11.9 Type 2 diabetes mellitus without complications; I10 Essential (primary) hypertension; K21.9 Gastro-esophageal reflux disease without esophagitis; Z88.0 Allergy status to penicillin; Z88.1 Allergy status to other antibiotic agents; Z88.8 Allergy status to other drugs, medicaments and biological substances; Z79.899 Other long term (current) drug therapy
CPT/HCPCS: 36415; 71046; 80053; 81001; 83880; 85025; 85610; 85730; 93005; 99284

== ENCOUNTER 2023-02-22 13:51 | Inpatient (IN) | payer MEDICARE, OTHER ==
--- NOTE | 2023-02-22 14:37 | ED ---
General Adult HPI - General Chief complaint: Weakness Stated complaint: Confusion,Weakness Time Seen by Provider: 02/22/23 14:11 Source: patient Mode of arrival: ambulatory Limitations: no limitations - History of Present Illness Initial comments: 82-year-old female past medical history significant for hypertension, hyperlipidemia, and type 2 diabetes presents to the ED with a chief complaint of confusion. Per patient's daughter who is not her primary caregiver, states patient is more confused than usual. States that due to not being her primary caregiver is unsure of what her baseline status is or if the patient has had any complaints over the past few days however reports that other family members state that she has been more confused than usual. Currently, patient denies any chest pain or shortness of breath. She does note pain of the right knee which is chronic in nature and recently received a joint injection. She is unsure of when the patient's last bowel movement was. - Related Data Home Medications Medication Instructions Recorded Confirmed Baclofen [Lioresal] 10 mg PO TID PRN 09/21/20 02/20/23 allopurinoL [Zyloprim] 100 mg PO DAILY 09/21/20 02/20/23 Cholecalciferol [Vitamin D3 (25 25 mcg PO DAILY 11/04/22 02/20/23 Mcg = 1000 Iu)] Famotidine 20 - 40 mg PO HS PRN 11/04/22 02/20/23 L.acidoph,Paracasei, B.lactis 1 cap PO DAILY 11/04/22 02/20/23 [Probiotic] Losartan Potassium [Cozaar] 100 mg PO DAILY 11/04/22 02/20/23 Omeprazole [PriLOSEC] 40 mg PO DAILY 11/04/22 02/20/23 Ubidecarenone [Coenzyme Q10] 200 mg PO DAILY 11/04/22 02/20/23 Vitamin B Complex 1 cap PO DAILY 11/04/22 02/20/23 DULoxetine HCL [Cymbalta] 60 mg PO DAILY 01/03/23 02/20/23 Multivit-Min/Iron/Folic/Lutein 1 tab PO DAILY 01/03/23 02/20/23 [Centrum Silver Women Tablet] Semaglutide [Ozempic] 0.5 mg SQ DIRECTED 02/20/23 02/20/23 hydroCHLOROthiazide [Hydrodiuril] 25 mg PO DAILY 02/20/23 02/20/23 Previous Rx's Medication Instructions Recorded Apixaban [Eliquis] 5 mg PO BID #60 tab 11/13/22 Dapagliflozin Propanediol [Farxiga] 5 mg PO DAILY #30 tab 11/13/22 HYDROcodone/APAP 10-325MG [[place] 1 tab PO QID PRN #12 tab 01/08/23 10-325] Pregabalin [Lyrica] 150 mg PO BID #6 cap 01/08/23 Furosemide [Lasix] 40 mg PO BID #14 tablet 02/20/23 Potassium Chloride ER [K-Dur 20] 20 meq PO BID #14 tab 02/20/23 Allergies Allergy/AdvReac Type Severity Reaction Status Date / Time cephalexin [From Keflex] Allergy Rash/Hives Verified 02/22/23 14:10 clindamycin Allergy Rash/Hives Verified 02/22/23 14:10 Penicillins Allergy Unknown Verified 02/22/23 14:10 oxybutynin [From Ditropan] AdvReac Hallucinati Verified 02/22/23 14:10 ons Review of Systems ROS Statement: Those systems with pertinent positive or pertinent negative responses have been documented in the HPI. ROS Other: All systems not noted in ROS Statement are negative. Past Medical History Past Medical History: Diabetes Mellitus, GERD/Reflux, Hypertension Additional Past Medical History / Comment(s): UTI, fibromylagia, respiroaty failure History of Any Multi-Drug Resistant Organisms: None Reported Past Surgical History: Back Surgery Additional Past Surgical History / Comment(s): 5 back surgery since 2014. Past Anesthesia/Blood Transfusion Reactions: No Reported Reaction Past Psychological History: No Psychological Hx Reported Smoking Status: Never smoker Past Alcohol Use History: None Reported Past Drug Use History: None Reported General Exam Limitations: altered mental status General appearance: alert Respiratory exam: Present: normal lung sounds bilaterally Cardiovascular Exam: Present: tachycardia, irregular rhythm GI/Abdominal exam: Present: soft (Diffuse tenderness to palpation. Bowel sounds active) Neurological exam: Present: alert (Alert to Self however not alert to place or time) Skin exam: Present: warm, dry Course Vital Signs 02/22/23 14:03 Pulse Rate 105 H Respiratory 20 Rate Blood Pressure 130/79 O2 Sat by Pulse 92 L Oximetry Medical Decision Making - Medical Decision Making Was pt. sent in by a medical professional or institution ([facility], [facility], urgent care, hospital, or fci...) When possible be specific @ -No Did you speak to anyone other than the patient for history (EMS, parent, family, police, friend...)? What history was obtained from this source @ -Patient's daughter who provided entirety of history. For further details please see HPI. Did you review nursing and triage notes (agree or disagree)? Why? @ -I reviewed and agree with nursing and triage notes Were old charts reviewed (outside hosp., previous admission, EMS record, old EKG, old radiological studies, urgent care reports/EKG's, fci records)? Report findings @ -Charts reviewed showing previous visit here showing no significant evidence for UTI however at that time was alert and oriented. Differential Diagnosis (chest pain, altered mental status, abdominal pain women, abdominal pain men, vaginal bleeding, weakness, fever, dyspnea, syncope, headache, dizziness, GI bleed, back pain, seizure, CVA, palpatations, mental health, musculoskeletal)? @ -Differential Altered Mental Status: Hypoglycemia, DKA, hypercapnia, ETOH, overdose, CO poisoning, trauma, myxedema coma, HTN encephalopathy, infection, encephalitis, psychosis, intercranial hemorrhage, hepatic encephalopathy, meningitis, CVA, this is not meant to be an all-inclusive list EKG interpreted by me (3pts min.). @ -As above X-rays interpreted by me (1pt min.). @ -X-ray of the chest and abdomen show no acute process CT interpreted by me (1pt min.). @ -CT Brain/C-spine showed no acute process U/S interpreted by me (1pt. min.). @ -None done What testing was considered but not performed or refused? (CT, X-rays, U/S, labs)? Why? @ -None What meds were considered but not given or refused? Why? @ -None Did you discuss the management of the patient with other professionals (professionals i.e. [facility], [facility], lab, RT, psych nurse, older adult social work specialist, residential treatment staff, teacher, liaison officer, rn case manager)? Give summary @ -Spoke to Dr. Austin, who accepted admission. Also requested Azactam 1 g q8h, Urine drug screen, urine culture, and blood cultures. Was smoking cessation discussed for >3mins.? @ -No Was critical care preformed (if so, how long)? @ -No Were there social determinants of health that impacted care today? How? (Homelessness, low income, unemployed, alcoholism, drug addiction, transportation, low edu. Level, literacy, decrease access to med. care, snf, rehab)? @ -No Was there de-escalation of care discussed even if they declined (Discuss DNR or withdrawal of care, Hospice)? DNR status @ -No What co-morbidities impacted this encounter? (DM, HTN, Smoking, COPD, CAD, C ancer, CVA, ARF, Chemo, Hep., AIDS, mental health diagnosis, sleep apnea, morbid obesity)? @ -Hypertension, hyperlipidemia, type 2 diabetes Was patient admitted / discharged? Hospital course, mention meds given and route, prescriptions, significant lab abnormalities, going to OR and other pertinent info. @ -Admission. Urine here shows evidence of UTI. Otherwise laboratory studies unremarkable. CT of the head/C-spine showed no acute findings. X-ray chest and abdomen showed no acute findings. Patient will be admitted with consult to neurology infectious disease. Discussed case with Dr. Jimena castañeda who accepted admission. Discussed plan of care with patient's daughter who is in agreement. Undiagnosed new problem with uncertain prognosis? @ -No Drug Therapy requiring intensive monitoring for toxicity (Heparin, Nitro, Insulin, Cardizem)? @ -No Were any procedures done? @ -No Diagnosis/symptom? @ -UTI, altered mental status Acute, or Chronic, or Acute on Chronic? @ -Acute Uncomplicated (without systemic symptoms) or Complicated (systemic symptoms)? @ -Complicated, tachycardia, altered mental status. Side effects of treatment? @ -No Exacerbation, Progression, or Severe Exacerbation? @ -No Poses a threat to life or bodily function? How? (Chest pain, [place], [place], pneumonia, PE, COPD, DKA, ARF, appy, cholecystitis, CVA, Diverticulitis, Homicidal, Suicidal, threat to staff... and all critical care pts) @ -No - Lab Data Result diagrams: 02/22/23 14:32 02/22/23 14:32 Lab Results 02/22/23 02/22/23 02/22/23 Range/Units 14:32 14:32 14:32 WBC 6.7 (3.8-10.6) k/uL RBC 5.31 (3.80-5.40) m/uL Hgb 15.6 (11.4-16.0) gm/dL Hct 48.2 H (34.0-46.0) % MCV 90.8 (80.0-100.0) fL MCH 29.4 (25.0-35.0) pg MCHC 32.4 (31.0-37.0) g/dL RDW 14.7 (11.5-15.5) % Plt Count 275 (150-450) k/uL MPV 8.7 Neutrophils % 74 % Lymphocytes % 11 % Monocytes % 10 % Eosinophils % 2 % Basophils % 1 % Neutrophils # 4.9 (1.3-7.7) k/uL Lymphocytes # 0.8 L (1.0-4.8) k/uL Monocytes # 0.7 (0-1.0) k/uL Eosinophils # 0.1 (0-0.7) k/uL Basophils # 0.0 (0-0.2) k/uL PT 11.9 (9.0-12.0) sec INR 1.2 H (<1.2) APTT 25.7 (22.0-30.0) sec Sodium 141 (137-145) mmol/L Potassium 4.0 (3.5-5.1) mmol/L Chloride 104 (98-107) mmol/L Carbon Dioxide 23 (22-30) mmol/L Anion Gap 14 mmol/L BUN 18 H (7-17) mg/dL Creatinine 0.98 (0.52-1.04) mg/dL Est GFR (CKD-EPI)AfAm 63 (>60 ml/min/1.73 sqM) Est GFR (CKD-EPI)NonAf 55 (>60 ml/min/1.73 sqM) Glucose 157 H (74-99) mg/dL Plasma Lactic Acid [place] (0.7-2.0) mmol/L Calcium 9.7 (8.4-10.2) mg/dL Total Bilirubin 0.8 (0.2-1.3) mg/dL AST 31 (14-36) U/L ALT 22 (4-34) U/L Alkaline Phosphatase 66 (38-126) U/L Ammonia (<30) umol/L Troponin I (0.000-0.034) ng/mL Total Protein 7.4 (6.3-8.2) g/dL Albumin 4.5 (3.5-5.0) g/dL Urine Color Urine Appearance (Clear) Urine pH (5.0-8.0) Ur Specific [place] (1.001-1.035) Urine Protein (Negative) Urine Glucose (UA) (Negative) Urine Ketones (Negative) Urine Blood (Negative) Urine Nitrite (Negative) Urine Bilirubin (Negative) Urine Urobilinogen (<2.0) mg/dL Ur Leukocyte Esterase (Negative) Urine RBC (0-5) /hpf Urine WBC (0-5) /hpf Ur Squamous Epith Cells (0-4) /hpf Urine Bacteria (None) /hpf Urine Mucus (None) /hpf 02/22/23 02/22/23 02/22/23 Range/Units 14:32 14:32 15:18 WBC (3.8-10.6) k/uL RBC (3.80-5.40) m/uL Hgb (11.4-16.0) gm/dL Hct (34.0-46.0) % MCV (80.0-100.0) fL MCH (25.0-35.0) pg MCHC (31.0-37.0) g/dL RDW (11.5-15.5) % Plt Count (150-450) k/uL MPV Neutrophils % % Lymphocytes % % Monocytes % % Eosinophils % % Basophils % % Neutrophils # (1.3-7.7) k/uL Lymphocytes # (1.0-4.8) k/uL Monocytes # (0-1.0) k/uL Eosinophils # (0-0.7) k/uL Basophils # (0-0.2) k/uL PT (9.0-12.0) sec INR (<1.2) APTT (22.0-30.0) sec Sodium (137-145) mmol/L Potassium (3.5-5.1) mmol/L Chloride (98-107) mmol/L Carbon Dioxide (22-30) mmol/L Anion Gap mmol/L BUN (7-17) mg/dL Creatinine (0.52-1.04) mg/dL Est GFR (CKD-EPI)AfAm (>60 ml/min/1.73 sqM) Est GFR (CKD-EPI)NonAf (>60 ml/min/1.73 sqM) Glucose (74-99) mg/dL Plasma Lactic Acid [place] 2.1 H* (0.7-2.0) mmol/L Calcium (8.4-10.2) mg/dL Total Bilirubin (0.2-1.3) mg/dL AST (14-36) U/L ALT (4-34) U/L Alkaline Phosphatase (38-126) U/L Ammonia 9 (<30) umol/L Troponin I <0.012 (0.000-0.034) ng/mL Total Protein (6.3-8.2) g/dL Albumin (3.5-5.0) g/dL Urine Color Yellow Urine Appearance Cloudy H (Clear) Urine pH 6.5 (5.0-8.0) Ur Specific [place] 1.009 (1.001-1.035) Urine Protein Negative (Negative) Urine Glucose (UA) Negative (Negative) Urine Ketones Negative (Negative) Urine Blood Large H (Negative) Urine Nitrite Positive H (Negative) Urine Bilirubin Negative (Negative) Urine Urobilinogen <2.0 (<2.0) mg/dL Ur Leukocyte Esterase Moderate H (Negative) Urine RBC 137 H (0-5) /hpf Urine WBC 28 H (0-5) /hpf Ur Squamous Epith Cells 6 H (0-4) /hpf Urine Bacteria Rare H (None) /hpf Urine Mucus Rare H (None) /hpf - EKG Data EKG Comments: EKG shows an electronic atrial pacemaker at [address] or T-wave changes. QRS 88, QT/QTc 328/389. Disposition Clinical Impression: UTI (urinary tract infection), Altered mental state Disposition: ADMITTED IP TO THIS HOSP Referrals: Olya Austin MD [Primary Care Provider] - 1-2 days Time of Disposition: 14:45
[2023-02-22 14:56] LABS: Basophils % (A) 1 %; Eosinophils # (A) 0.1 k/uL (0-0.7); Eosinophils % (A) 2 %; HCT 48.2 % (34.0-46.0); HGB 15.6 gm/dL (11.4-16.0); Lymphocytes # (A) 0.8 k/uL (1.0-4.8); Lymphocytes % (A) 11 %; MCH 29.4 pg (25.0-35.0); MCHC 32.4 g/dL (31.0-37.0); MCV 90.8 fL (80.0-100.0); Mean Platelet Volume 8.7; Monocytes # (A) 0.7 k/uL (0-1.0); Monocytes % (A) 10 %; Neutrophils # (A) 4.9 k/uL (1.3-7.7); Neutrophils % (A) 74 %; Platelet Count 275 k/uL (150-450); RBC 5.31 m/uL (3.80-5.40); RDW 14.7 % (11.5-15.5); WBC 6.7 k/uL (3.8-10.6)
[2023-02-22] MEDS ORDERED: SODIUM CHLORIDE 0.9% 1,000 ML IV STA (15:05)
[2023-02-22 15:10] LABS: INR 1.2 (<1.2); Partial Thromboplastin Time 25.7 sec (22.0-30.0); Prothrombin Time 11.9 sec (9.0-12.0)
[2023-02-22] MEDS ORDERED: KETOROLAC 15 MG/ML 1 ML VIAL IVP STA (15:10)
[2023-02-22 15:11] LABS: ALT 22 U/L (4-34); AST 31 U/L (14-36); African American GFR (CKD) 63 (>60 ml/min/1.73 sqM); Albumin 4.5 g/dL (3.5-5.0); Alkaline Phosphatase 66 U/L (38-126); Anion Gap 14 mmol/L; Blood Urea Nitrogen 18 mg/dL (7-17); Calcium 9.7 mg/dL (8.4-10.2); Carbon Dioxide 23 mmol/L (22-30); Chloride 104 mmol/L (98-107); Glucose 157 mg/dL (74-99); Non-African American GFR(CKD) 55 (>60 ml/min/1.73 sqM); Sodium 141 mmol/L (137-145); Total Bilirubin 0.8 mg/dL (0.2-1.3); Total Protein 7.4 g/dL (6.3-8.2)
[2023-02-22 15:16] LABS: Lactic Acid, Venous 2.1 mmol/L (0.7-2.0)
[2023-02-22 15:39] LABS: Appearance,Urine Cloudy (Clear); Bacteria,Urine Rare /hpf; Bilirubin,Urine Negative (Negative); Blood,Urine Large (Negative); Color,Urine Yellow; Glucose,Urine (UA) Negative (Negative); Ketones,Urine Negative (Negative); Leukocyte Esterase,Urine Moderate (Negative); Mucus,Urine Rare /hpf; Nitrite,Urine Positive (Negative); PH, Urine 6.5 (5.0-8.0); Protein,Urine Negative (Negative); RBC,Urine 137 /hpf (0-5); Specific Gravity,Urine 1.009 (1.001-1.035); Squamous Epithelial Cell,Urine 6 /hpf (0-4); Urobilinogen,Urine <2.0 mg/dL (<2.0); WBC,Urine 28 /hpf (0-5)
--- NOTE | 2023-02-22 15:58 | CT ---
EXAMINATION TYPE: CT brain [facility]ks[facility] DATE OF EXAM: 02/22/2023 COMPARISON: 01/03/2023 brain HISTORY: 82-year-old female altered mental status, Pain and confusion. CT DLP: 1540.2 mGycm Automated exposure control for dose reduction was used. Technique: Examination of the head was done in axial plane without intravenous contrast. Coronal and sagittal reconstructions performed. CT of the cervical spine was obtained in axial plane without intravenous injection of contrast mater ial. Coronal and sagittal reformatted images were obtained from the axial views for evaluation of f ractures, spinal alignment and canal. FINDINGS: Head: There is no evidence of acute intracranial hemorrhage, acute ischemic changes, mass, mass-effect, or extra-axial fluid collection. There is no effacement of cerebral sulci or basal subarachnoid cister ns. There is no hydrocephalus. There is no midline shift. Rm-white matter distinction is preserv ed. Complete opacification left maxillary sinus. Mastoid air cells well pneumatized. The globes are intac t. Mild to moderate cerebral cortical volume loss. Moderate patchy white matter hypodensities in both ce rebral hemispheres. Other scattered calcifications in both carotid siphons. Partially empty sella. Cervical spine: No craniocervical junction abnormality, predental space widening, or prevertebral soft tissue swellin g. Degenerative change C1 dens articulation. Asymmetric degenerative change along the left lateral ma ss articulation of C1-C2. Moderate to advanced spondylotic change especially mid to lower cervical spine with reversal of the n ormal cervical lordosis. Degenerative grade 1 anterolisthesis, nearly grade 2 at C3-C4. Grade 1 anterolisthesis C4-C5 and C7-T 1. Grade 1 retrolisthesis C5-C6. Discussed by complexes may contribute to mild spinal canal stenosis at both C5-C6 and C6/C7. No acute fracture of the cervical spine. Moderate multilevel neuroforaminal narrowing, more severe on the right at C3-C4. There Sagittal and c oronal reformatted images confirm above findings. COMBINED IMPRESSION: 1. Mild to moderate cerebral cortical volume loss. Moderate patchy burden of chronic small vessel isc hemic disease. No acute intracranial abnormality seen. 2. Moderate to advanced multilevel spondylitic change. Degenerative grade 1 spondylolistheses C4-C5, C5-C6 and C7-T1. Nearly grade 2 anterolisthesis of C3-C4. No acute fracture of the cervical spine. 3. Severe chronic left maxillary sinusitis.
--- NOTE | 2023-02-22 16:24 | XR ---
EXAMINATION TYPE: XR chest 2V DATE OF EXAM: 02/22/2023 COMPARISON: 02/20/2023 HISTORY: 82-year-old female with weakness TECHNIQUE: AP and lateral views FINDINGS: Heart mildly enlarged. Spinal stimulator array center along the lower thoracic spinal canal. Intersti tial prominence. Low lung volumes and crowded vascular markings. No leyla consolidation or pleural ef fusion. Suspect chronic full-thickness rotator cuff tear right shoulder. IMPRESSION: Mild cardiomegaly and hypoventilatory changes. Correlate to exclude mild pulmonary vascular congestio n.
--- NOTE | 2023-02-22 16:26 | XR ---
EXAMINATION TYPE: XR abdomen 2V DATE OF EXAM: 02/22/2023 CLINICAL DATA: 82 year-old female with abdominal pain, [facility] COMPARISON: None FINDINGS: Marked levoconvex scoliosis lumbar spine with laminectomy change. No significant stool khadra en. No dilated small bowel is seen. Supine imaging limited for assessment of free air. Large body hab itus. Small pelvic phleboliths. IMPRESSION: No evidence for free air or bowel obstruction. No significant stool burden. Large body osei bitus.
[2023-02-22] MEDS ORDERED: NALOXONE 0.4 MG/ML 1 ML VIAL IV PRN ×2 (17:05→17:07)
[2023-02-22] MEDS ORDERED: HYDROmorphone 1 MG/ML 1 ML SYRINGE IVP PRN (17:07)
[2023-02-22] MEDS ORDERED: ACETAMINOPHEN TAB 325 MG TAB PO PRN (17:07)
[2023-02-22] MEDS ORDERED: ONDANSETRON 4 MG/2 ML VIAL IVP PRN (17:07)
[2023-02-22] MEDS ORDERED: HYDROmorphone 0.5 MG/0.5 ML SYRINGE IVP PRN (17:07)
[2023-02-22 17:26] LABS: Amphetamine Screen,Urine Not Detected (NotDetected); Benzodiazepines Screen,Urine Not Detected (NotDetected); Cocaine Screen,Urine Not Detected (NotDetected); Methadone Screen, Urine Not Detected (NotDetected); Opiate Screen,Urine Detected (NotDetected); Phencyclidine Screen,Urine Not Detected (NotDetected); Tricyclic Antidepressant,Urine Not Detected (NotDetected); Urn Cannabinoid Scrn Not Detected (NotDetected)
[2023-02-22 17:27] LABS: Barbiturate Screen,Urine Not Detected (NotDetected); Oxycodone Screen, Urine Not Detected (NotDetected)
[2023-02-22] MEDS: SODIUM CHLORIDE 0.9% 1,000 ML IV SCH ×2 (17:33→21:02)
[2023-02-22] MEDS ORDERED: AZTREONAM 1 GM in SODIUM CHLORIDE 0.9% 50 ML IVPB SCH (18:00)
[2023-02-22] MEDS ORDERED: BACLOFEN 10 MG TAB PO PRN (19:31)
[2023-02-22 20:42] LABS: Glucose,Whole Blood 140 mg/dL (70-110)
[2023-02-22] MEDS: HYDROcodone/APAP 10-325MG 1 EACH TAB PO PRN (20:58)
[2023-02-22] MEDS: POTASSIUM CHLORIDE ER 20 MEQ TAB.ER PO SCH (21:01)
[2023-02-22] MEDS: PREGABALIN 75 MG CAP PO SCH (21:01)
[2023-02-22] MEDS: APIXABAN 5 MG TAB PO SCH (21:01)
[2023-02-22] MEDS: AZTREONAM 1 GM in SODIUM CHLORIDE 0.9% 50 ML IVPB SCH (21:02)
[2023-02-22] MEDS: FUROSEMIDE 40 MG TAB PO SCH (21:12)
[2023-02-23] MEDS: AZTREONAM 1 GM in SODIUM CHLORIDE 0.9% 50 ML IVPB SCH ×3 (04:25→21:05)
[2023-02-23] MEDS: HYDROcodone/APAP 10-325MG 1 EACH TAB PO PRN ×2 (05:53→21:05)
[2023-02-23] MEDS: FUROSEMIDE 40 MG TAB PO SCH (05:54)
[2023-02-23 05:58] LABS: Glucose,Whole Blood 127 mg/dL (70-110)
[2023-02-23] MEDS ORDERED: NON FORMULARY DRUG (Vitamin B Complex [Vitamin B Complex] 1 EACH Capsule) PO SCH (09:00)
[2023-02-23] MEDS ORDERED: NON FORMULARY DRUG (Ubidecarenone [Coenzyme Q10] 200 MG Capsule) PO SCH (09:00)
[2023-02-23] MEDS: PREGABALIN 75 MG CAP PO SCH ×2 (09:11→21:06)
[2023-02-23] MEDS: LOSARTAN 50 MG TAB PO SCH (09:11)
[2023-02-23] MEDS: DAPAGLIFLOZIN PROPANEDIOL 5 MG TABLET PO SCH (09:11)
[2023-02-23] MEDS: allopurinoL 100 MG TAB PO SCH (09:11)
[2023-02-23] MEDS: POTASSIUM CHLORIDE ER 20 MEQ TAB.ER PO SCH (09:11)
[2023-02-23] MEDS: ATORVASTATIN 40 MG TAB PO SCH (09:11)
[2023-02-23] MEDS: PANTOPRAZOLE 40 MG TABLET PO SCH (09:11)
[2023-02-23] MEDS: LACTOBACILLUS ACIDOPHILUS/PECT 1 EACH CAPSULE PO SCH (09:11)
[2023-02-23] MEDS: hydroCHLOROthiazide 25 MG TAB PO SCH (09:11)
[2023-02-23] MEDS: MULTIVITAMINS, THERA 1 EACH TAB PO SCH (09:11)
[2023-02-23] MEDS: DULoxetine HCL 60 MG CAPSULE.DR PO SCH (09:11)
[2023-02-23] MEDS: APIXABAN 5 MG TAB PO SCH ×2 (09:11→21:06)
[2023-02-23] MEDS: CHOLECALCIFEROL 25 MCG (1000 IU) TABLET PO SCH (09:12)
[2023-02-23] MEDS: SODIUM CHLORIDE 0.9% 1,000 ML IV SCH (11:20)
[2023-02-23 11:37] LABS: Glucose,Whole Blood 160 mg/dL (70-110)
--- NOTE | 2023-02-23 12:50 | P.HPIM ---
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 Patient was recently hospitalized at [facility] after she was admitted for metabolic encephalopathy due possible TIA/CVA and was treated for urinary tract infection, and patient was doing fine, she was supposed to be started on Cystex for urinary tract infection prevention however she never started it ALLERGIC of the medication at home, patient called the office on Friday because of increased swelling in both lower extremities she was not having any urinary symptoms at that time, she went to [facility] emergency department for evaluation of possible heart failure, she was placed on Lasix 40 mg orally twice every day as well as potassium supplementation since the Hydrocort thiazide was not working, the urinalysis at that time was negative for UTI, patient went home and came back to the hospital in 24 hours after her daughter brought her in she was visiting from [facility] and she was suppo sed to take her mother with her down to spend a couple weeks with her, but she became quite confused and she ended up bringing her to the ER for evaluation she was found to have a urinary tract infection with sepsis she was started on IV antibiotic in the form of Azactam 1 g IV piggyback every 8 hours, and she was admitted to the hospital after obtaining blood cultures urine culture and infectious disease consultation. REVIEW OF SYSTEMS Constitutional: No fever, no chills, no night sweats. No weight change. No weakness, fatigue or lethargy. No daytime sleepiness. HEENT: No headache. No blurred vision or double vision, no loss of vision. Chronic loss of Hearing, no ringing in the ears, no dizziness. No nasal drainage or congestion. No epistaxis. No sore throat. Lungs: No shortness of breath, cough, no sputum production. No wheezing. Cardiovascular: No chest pain, no lower extremity edema. No palpitations. No paroxysmal nocturnal dyspnea. No orthopnea. No lightheadedness or dizziness. No syncopal episodes. Abdominal: No abdominal pain. No nausea, vomiting. No diarrhea. No constipation. No bloody or tarry stools. No loss of appetite. Genitourinary: positive for dysuria, increased frequency, urgency. No urinary retention. Musculoskeletal: No myalgias. Noted muscle weakness, noted gait dysfunction, fall at home. No back pain. No neck pain. Integumentary: No wounds. No rash or pruritus. No unusual bruising. No change in hair or nails. Neurologic: Noted aphasia. No facial droop. Noted change in mentation. No head injury. No headache. No paralysis. No paresthesia. Psychiatric: No depression. No anxiety. No mood swings. Endocrine: No abnormal blood sugars. No weight change. No excessive sweating or thirst. No cold intolerance. 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 SURGICAL HISTORY Cataract surgery left 20/20 Tonsillectomy and adenoidectomy Laminectomy with fusion of L1-S1 Lumbar discitis post-hardware removal SI joint fusion 2 Spinal cord stimulator Seroma on the back post-wound VAC line colonoscopy with polyps 2018. SOCIAL HISTORY Patient is a lifelong nonsmoker, no alcohol abuse, no illicit drug use. FAMILY HISTORY Father at age 80. Mother at the age of 86 from myocardial infarction had history of hypertension, hyperlipidemia. Patient has one brother with no major medical problems and one sister with no major medical problems. Patient has 3 daughters with no major medical problems. PHYSICAL EXAMINATION Gen: This is an 82-year-old obese female. She is resting and appears to be comfortable and in no acute distress. HEENT: Head is atraumatic, normocephalic. Pupils equal, round. Sclerae is anicteric. NECK: Supple. No JVD. No lymphadenopathy. No thyromegaly. LUNGS: Clear to auscultation. No wheezes or rhonchi. No intercostal retractions. HEART: First heart sound is depressed, second heart sound is normal, 2/6 systolic ejection murmur at the left sternal border. ABDOMEN: Soft, mild tenderness to the epigastric area, no rebound or guarding positive bowel sounds EXTREMITIES: No pedal edema. No calf tenderness, DP+2 bilaterally NEUROLOGICAL: Patient is awake, alert and oriented to person and place, CN II- XII are grossly intact muscle power 4/5 in bilateral upper and lower extremities. ASSESSMENT AND PLAN 1. Metabolic encephalopathy secondary to UTI with sepsis. Continue patient on IV antibiotic in the form of Azactam 1 g of piggyback every 8 hours until the final cultures are back, continue IV fluid resuscitation the form of normal saline 75 mL an hour, monitor the patient very closely, infectious disease consultation. 2. Paroxysmal Atrial fibrillation. we will continue with Eliquis 5 mg po bid and we will continue to monitor 3. Recurrent urinary tract infection. last one was E.Coli with Fluoroquinolone resistance. Patient will need urology referral for possible incomplete bladder emptying. 4. Hypertension and hypertensive cardiovascular disease. Resume patient on hydrochlorothiazide 25 mg daily. Continue patient on losartan 100 mg daily. 5. Hyperlipidemia. we will continue Atorvastatin 40 mg po daily 6. Diabetes mellitus type 2. Continue patient on add NovoLog scale before meals and at bedtime, we will continue wit Farxiga 5 mg po daily 7. Diabetic polyneuropathy. Continue Duloxetin 60 mg po daily 8. 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 Continue baclofen 10 mg 3 times daily as needed. 9. Idiopathic gout. Continue allopurinol 100 mg daily. 10. Obstructive sleep apnea. Continue CPAP. 11. GI prophylaxis and gastroesophageal reflux disease. Continue Protonix 40 mg po daily 12. DVT prophylaxis. we will continue with Apixaban 5 mg po bid. 14. Diabetic polyneuropathy. Continue pregabalin 50 mg orally twice every day. 15. Admit to inpatient. Estimate a length of stay 2 midnights. 16. Patient is DNR. Past Medical History Past Medical History: Atrial Fibrillation, CVA/TIA, Diabetes Mellitus, Fibromyalgia, GERD/Reflux, Hypertension, Pneumonia, Rheumatoid Arthritis (RA) Additional Past Medical History / Comment(s): recurrent UTIs, respiratory failure, cateracts, recent TIA, possible A-fib History of Any Multi-Drug Resistant Organisms: None Reported Past Surgical History: Back Surgery, Hysterectomy Additional Past Surgical History / Comment(s): 5 back surgery since 2014, total hysterectomy Past Anesthesia/Blood Transfusion Reactions: No Reported Reaction Past Psychological History: No Psychological Hx Reported Smoking Status: Never smoker Past Alcohol Use History: None Reported Past Drug Use History: None Reported Medications and Allergies Home Medications Medication Instructions Recorded Confirmed Type Baclofen [Lioresal] 10 mg PO TID PRN 09/21/20 02/22/23 History allopurinoL [Zyloprim] 100 mg PO DAILY 09/21/20 02/22/23 History Cholecalciferol [Vitamin D3 (25 25 mcg PO DAILY 11/04/22 02/22/23 History Mcg = 1000 Iu)] Famotidine 20 - 40 mg PO HS PRN 11/04/22 02/22/23 History L.acidoph,Paracasei, B.lactis 1 cap PO DAILY 11/04/22 02/22/23 History [Probiotic] Losartan Potassium [Cozaar] 100 mg PO DAILY 11/04/22 02/22/23 History Omeprazole [PriLOSEC] 40 mg PO DAILY 11/04/22 02/22/23 History Ubidecarenone [Coenzyme Q10] 200 mg PO DAILY 11/04/22 02/22/23 History Vitamin B Complex 1 cap PO DAILY 11/04/22 02/22/23 History Apixaban [Eliquis] 5 mg PO BID #60 tab 11/13/22 02/22/23 Rx Dapagliflozin Propanediol [Farxiga] 5 mg PO DAILY #30 tab 11/13/22 02/22/23 Rx DULoxetine HCL [Cymbalta] 60 mg PO DAILY 01/03/23 02/22/23 History Multivit-Min/Iron/Folic/Lutein 1 tab PO DAILY 01/03/23 02/22/23 History [Centrum Silver Women Tablet] HYDROcodone/APAP 10-325MG [[place] 1 tab PO QID PRN #12 tab 01/08/23 02/22/23 Rx 10-325] Pregabalin [Lyrica] 150 mg PO BID #6 cap 01/08/23 02/22/23 Rx Furosemide [Lasix] 40 mg PO BID #14 tablet 02/20/23 02/22/23 Rx Potassium Chloride ER [K-Dur 20] 20 meq PO BID #14 tab 02/20/23 02/22/23 Rx Semaglutide [Ozempic] 0.5 mg SQ DIRECTED 02/20/23 02/22/23 History hydroCHLOROthiazide [Hydrodiuril] 25 mg PO DAILY 02/20/23 02/22/23 History Rosuvastatin [Crestor] 20 mg PO DAILY 02/22/23 02/22/23 History Allergies Allergy/AdvReac Type Severity Reaction Status Date / Time cephalexin [From Keflex] Allergy Rash/Hives Verified 02/22/23 17:24 clindamycin Allergy Rash/Hives Verified 02/22/23 17:24 Penicillins Allergy Unknown Verified 02/22/23 17:24 oxybutynin [From Ditropan] AdvReac Hallucinati Verified 02/22/23 17:24 ons Physical Exam Vitals: Vital Signs Temp Pulse Pulse Resp BP BP Pulse Ox 02/23/23 07:37 97.6 F 80 19 104/67 93 L 02/23/23 01:39 98.2 F 65 18 108/69 91 L 02/22/23 19:37 97.7 F 97 16 139/89 94 L 02/22/23 18:13 97.9 F 66 19 146/83 96 02/22/23 17:40 98.0 F 90 18 102/76 95 02/22/23 17:08 97.9 F 02/22/23 14:03 105 H 20 130/79 92 L Intake and Output 02/22/23 02/23/23 02/23/23 22:59 06:59 14:59 Output Total 400 Balance -400 Output: Urine 400 Other: Voiding Method External Catheter External Catheter Weight 90.718 kg Results CBC & Chem 7: 02/22/23 14:32 02/22/23 14:32 Labs: Abnormal Lab Results - Last 24 Hours (Table) 02/22/23 02/22/23 02/22/23 Range/Units 14:32 14:32 14:32 Hct 48.2 H (34.0-46.0) % Lymphocytes # 0.8 L (1.0-4.8) k/uL INR 1.2 H (<1.2) BUN 18 H (7-17) mg/dL Glucose 157 H (74-99) mg/dL POC Glucose (mg/dL) (70-110) mg/dL Plasma Lactic Acid [place]ico (0.7-2.0) mmol/L Urine Appearance (Clear) Urine Blood (Negative) Urine Nitrite (Negative) Ur Leukocyte Esterase (Negative) Urine RBC (0-5) /hpf Urine WBC (0-5) /hpf Ur Squamous Epith Cells (0-4) /hpf Urine Bacteria (None) /hpf Urine Mucus (None) /hpf Urine Opiates Screen (NotDetected) 02/22/23 02/22/23 02/22/23 Range/Units 14:32 15:18 15:18 Hct (34.0-46.0) % Lymphocytes # (1.0-4.8) k/uL INR (<1.2) BUN (7-17) mg/dL Glucose (74-99) mg/dL POC Glucose (mg/dL) (70-110) mg/dL Plasma Lactic Acid [place]ico 2.1 H* (0.7-2.0) mmol/L Urine Appearance Cloudy H (Clear) Urine Blood Large H (Negative) Urine Nitrite Positive H (Negative) Ur Leukocyte Esterase Moderate H (Negative) Urine RBC 137 H (0-5) /hpf Urine WBC 28 H (0-5) /hpf Ur Squamous Epith Cells 6 H (0-4) /hpf Urine Bacteria Rare H (None) /hpf Urine Mucus Rare H (None) /hpf Urine Opiates Screen Detected H (NotDetected) 02/22/23 02/23/23 02/23/23 Range/Units 20:39 05:54 11:35 Hct (34.0-46.0) % Lymphocytes # (1.0-4.8) k/uL INR (<1.2) BUN (7-17) mg/dL Glucose (74-99) mg/dL POC Glucose (mg/dL) 140 H 127 H 160 H (70-110) mg/dL Plasma Lactic Acid [place]ico (0.7-2.0) mmol/L Urine Appearance (Clear) Urine Blood (Negative) Urine Nitrite (Negative) Ur Leukocyte Esterase (Negative) Urine RBC (0-5) /hpf Urine WBC (0-5) /hpf Ur Squamous Epith Cells (0-4) /hpf Urine Bacteria (None) /hpf Urine Mucus (None) /hpf Urine Opiates Screen (NotDetected) Thrombosis Risk Factor Assmnt - Choose All That Apply Each Factor Represents 1 point: Obesity (BMI >25), Swollen legs (current) Each Risk Factor Represents 3 Points: Age 75 years or older Thrombosis Risk Factor Assessment Total Risk Factor Score: 5 Thrombosis Risk Factor Assessment Level: High Risk
[2023-02-23 16:25] LABS: Glucose,Whole Blood 158 mg/dL (70-110)
[2023-02-23] MEDS: INSULIN ASPART (NovoLOG) 100 UNIT/ML VIAL SQ SCH ×2 (17:14→21:04)
--- NOTE | 2023-02-23 19:21 | P.CONS ---
History of Present Illness - Reason for Consult Consult date: 02/23/23 Urinary tract infection Requesting physician: Olya Austin - Chief Complaint Mental status changes x one day - History of Present Illness Patient is a 89-year-old female with a past medical history significant for type 2 diabetes mellitus hypertension hyperlipidemia patient was brought into the ER yesterday afternoon for evaluation of increasing confusion patient daughter who noticed the patient to be more confused than usual patient did not recall what happened no history of any headache or URI symptoms patient denies any chest pain or shortness of the cough and abdominal pain only diarrhea patient on presentation to the hospital was afebrile and no fever has been recorded subsequently patient did have a normal white count kidney function was normal lactic acid was elevated liver enzymes are normal patient did have a positive UA with moderate leukocyte esterase 20 WBC urine drug screen was positive for opiates patient did have a chest x-ray mild cardiomegaly and hypoventilatory changes CT of the brain was negative for any bleed abdominal x- ray no evidence for free air or bowel obstruction patient did have multiple antibiotic allergies she was started on Azactam concerning for symptomatic UTI infectious disease was consulted for further management of antibiotic therapy Review of Systems Positive point and negatives has been mentioned in the HPI, complete review of systems was performed and all other systems are negative Past Medical History Past Medical History: Atrial Fibrillation, CVA/TIA, Diabetes Mellitus, Fibromyalgia, GERD/Reflux, Hypertension, Pneumonia, Rheumatoid Arthritis (RA) Additional Past Medical History / Comment(s): recurrent UTIs, respiratory failure, cateracts, recent TIA, possible A-fib History of Any Multi-Drug Resistant Organisms: None Reported Past Surgical History: Back Surgery, Hysterectomy Additional Past Surgical History / Comment(s): 5 back surgery since 2014, total hysterectomy Past Anesthesia/Blood Transfusion Reactions: No Reported Reaction Past Psychological History: No Psychological Hx Reported Smoking Status: Never smoker Past Alcohol Use History: None Reported Past Drug Use History: None Reported Medications and Allergies Home Medications Medication Instructions Recorded Confirmed Type Baclofen [Lioresal] 10 mg PO TID PRN 09/21/20 02/22/23 History allopurinoL [Zyloprim] 100 mg PO DAILY 09/21/20 02/22/23 History Cholecalciferol [Vitamin D3 (25 25 mcg PO DAILY 11/04/22 02/22/23 History Mcg = 1000 Iu)] Famotidine 20 - 40 mg PO HS PRN 11/04/22 02/22/23 History L.acidoph,Paracasei, B.lactis 1 cap PO DAILY 11/04/22 02/22/23 History [Probiotic] Losartan Potassium [Cozaar] 100 mg PO DAILY 11/04/22 02/22/23 History Omeprazole [PriLOSEC] 40 mg PO DAILY 11/04/22 02/22/23 History Ubidecarenone [Coenzyme Q10] 200 mg PO DAILY 11/04/22 02/22/23 History Vitamin B Complex 1 cap PO DAILY 11/04/22 02/22/23 History Apixaban [Eliquis] 5 mg PO BID #60 tab 11/13/22 02/22/23 Rx Dapagliflozin Propanediol [Farxiga] 5 mg PO DAILY #30 tab 11/13/22 02/22/23 Rx DULoxetine HCL [Cymbalta] 60 mg PO DAILY 01/03/23 02/22/23 History Multivit-Min/Iron/Folic/Lutein 1 tab PO DAILY 01/03/23 02/22/23 History [Centrum Silver Women Tablet] HYDROcodone/APAP 10-325MG [[place] 1 tab PO QID PRN #12 tab 01/08/23 02/22/23 Rx 10-325] Pregabalin [Lyrica] 150 mg PO BID #6 cap 01/08/23 02/22/23 Rx Semaglutide [Ozempic] 0.5 mg SQ DIRECTED 02/20/23 02/22/23 History hydroCHLOROthiazide [Hydrodiuril] 25 mg PO DAILY 02/20/23 02/22/23 History Rosuvastatin [Crestor] 20 mg PO DAILY 02/22/23 02/22/23 History Ciprofloxacin HCl [Cipro] 500 mg PO BID 7 Days #14 tab 02/25/23 Rx Furosemide [Lasix] 40 mg PO DAILY #14 tablet 02/25/23 02/22/23 Rx Potassium Chloride ER [K-Dur 20] 20 meq PO DAILY #14 tab 02/25/23 02/22/23 Rx Allergies Allergy/AdvReac Type Severity Reaction Status Date / Time cephalexin [From Keflex] Allergy Rash/Hives Verified 02/22/23 17:24 clindamycin Allergy Rash/Hives Verified 02/22/23 17:24 Penicillins Allergy Unknown Verified 02/22/23 17:24 oxybutynin [From Ditropan] AdvReac Hallucinati Verified 02/22/23 17:24 ons Physical Exam Vitals: Vital Signs Temp Pulse Pulse Resp BP BP Pulse Ox 02/23/23 07:37 97.6 F 80 19 104/67 93 L 02/23/23 01:39 98.2 F 65 18 108/69 91 L 02/22/23 19:37 97.7 F 97 16 139/89 94 L 02/22/23 18:13 97.9 F 66 19 146/83 96 02/22/23 17:40 98.0 F 90 18 102/76 95 02/22/23 17:08 97.9 F 02/22/23 14:03 105 H 20 130/79 92 L Intake and Output 02/22/23 02/23/23 02/23/23 22:59 06:59 14:59 Output Total 400 Balance -400 Output: Urine 400 Other: Voiding Method External Catheter External Catheter Weight 90.718 kg GENERAL DESCRIPTION: Elderly female lying in bed, no distress. No tachypnea or accessory muscle of respiration use. HEENT: Shows Pallor , no scleral icterus. Oral mucous membrane is dry. NECK: Trachea central, no thyromegaly. LUNGS: Unlabored breathing. Clear to auscultation anteriorly. HEART: S1, S2, regular rate and rhythm. No loud murmur ABDOMEN: Soft, no tenderness , guarding or rigidity, no organomegaly EXTREMITIES: No edema of feet. SKIN: No rash, no masses palpable. NEUROLOGICAL: The patient is lethargic but arousable, mood and affect normal. Results CBC & Chem 7: 02/25/23 06:03 02/25/23 06:03 Labs: Abnormal Lab Results - Last 24 Hours (Table) 02/22/23 02/22/23 02/22/23 Range/Units 14:32 14:32 14:32 Hct 48.2 H (34.0-46.0) % Lymphocytes # 0.8 L (1.0-4.8) k/uL INR 1.2 H (<1.2) BUN 18 H (7-17) mg/dL Glucose 157 H (74-99) mg/dL POC Glucose (mg/dL) (70-110) mg/dL Plasma Lactic Acid [place] (0.7-2.0) mmol/L Urine Appearance (Clear) Urine Blood (Negative) Urine Nitrite (Negative) Ur Leukocyte Esterase (Negative) Urine RBC (0-5) /hpf Urine WBC (0-5) /hpf Ur Squamous Epith Cells (0-4) /hpf Urine Bacteria (None) /hpf Urine Mucus (None) /hpf Urine Opiates Screen (NotDetected) 02/22/23 02/22/23 02/22/23 Range/Units 14:32 15:18 15:18 Hct (34.0-46.0) % Lymphocytes # (1.0-4.8) k/uL INR (<1.2) BUN (7-17) mg/dL Glucose (74-99) mg/dL POC Glucose (mg/dL) (70-110) mg/dL Plasma Lactic Acid [place] 2.1 H* (0.7-2.0) mmol/L Urine Appearance Cloudy H (Clear) Urine Blood Large H (Negative) Urine Nitrite Positive H (Negative) Ur Leukocyte Esterase Moderate H (Negative) Urine RBC 137 H (0-5) /hpf Urine WBC 28 H (0-5) /hpf Ur Squamous Epith Cells 6 H (0-4) /hpf Urine Bacteria Rare H (None) /hpf Urine Mucus Rare H (None) /hpf Urine Opiates Screen Detected H (NotDetected) 02/22/23 02/23/23 Range/Units 20:39 05:54 Hct (34.0-46.0) % Lymphocytes # (1.0-4.8) k/uL INR (<1.2) BUN (7-17) mg/dL Glucose (74-99) mg/dL POC Glucose (mg/dL) 140 H 127 H (70-110) mg/dL Plasma Lactic Acid [place] (0.7-2.0) mmol/L Urine Appearance (Clear) Urine Blood (Negative) Urine Nitrite (Negative) Ur Leukocyte Esterase (Negative) Urine RBC (0-5) /hpf Urine WBC (0-5) /hpf Ur Squamous Epith Cells (0-4) /hpf Urine Bacteria (None) /hpf Urine Mucus (None) /hpf Urine Opiates Screen (NotDetected) Assessment and Plan (1) UTI (urinary tract infection) Current Visit: Yes Status: Acute Code(s): N39.0 - URINARY TRACT INFECTION, SITE NOT SPECIFIED SNOMED Code(s): 06756487 (2) Allergy to multiple antibiotics Current Visit: No Status: Acute Code(s): Z88.1 - ALLERGY STATUS TO OTHER ANTIBIOTIC AGENTS SNOMED Code(s): 373924114 Plan: 1patient presented hospital with mental status changes likely multifactorial patient did have a history of recurrent UTI positive UA and concern for possible UTI from enteric gram-negative pathogen. 2patient with multiple antibiotic allergies that would limit the number of an tibiotics safe to use. 3we will continue patient on Azactam while waiting for the culture to finalize. We will follow on clinical condition and cultures to further adjust medication if needed Thank you for this consultation we will follow the patient along with you Dictation was produced using [employer] dictation software. please excuse any grammatical, word or spelling errors. Time with Patient: Greater than 30
[2023-02-23 20:48] LABS: Glucose,Whole Blood 151 mg/dL (70-110)
[2023-02-24] MEDS: HYDROcodone/APAP 10-325MG 1 EACH TAB PO PRN ×2 (04:11→20:38)
[2023-02-24] MEDS: AZTREONAM 1 GM in SODIUM CHLORIDE 0.9% 50 ML IVPB SCH ×3 (04:13→20:37)
[2023-02-24 05:35] LABS: Glucose,Whole Blood 127 mg/dL (70-110)
[2023-02-24] MEDS: INSULIN ASPART (NovoLOG) 100 UNIT/ML VIAL SQ SCH ×4 (06:02→21:56)
[2023-02-24] MEDS: FUROSEMIDE 40 MG TAB PO SCH (08:00)
[2023-02-24] MEDS: PREGABALIN 75 MG CAP PO SCH ×2 (08:00→20:38)
[2023-02-24] MEDS: APIXABAN 5 MG TAB PO SCH ×2 (08:00→20:38)
[2023-02-24] MEDS: LOSARTAN 50 MG TAB PO SCH (08:00)
[2023-02-24] MEDS: ATORVASTATIN 40 MG TAB PO SCH (08:01)
[2023-02-24] MEDS: POTASSIUM CHLORIDE ER 20 MEQ TAB.ER PO SCH (08:01)
[2023-02-24] MEDS: LACTOBACILLUS ACIDOPHILUS/PECT 1 EACH CAPSULE PO SCH (08:01)
[2023-02-24] MEDS: MULTIVITAMINS, THERA 1 EACH TAB PO SCH (08:01)
[2023-02-24] MEDS: hydroCHLOROthiazide 25 MG TAB PO SCH (08:01)
[2023-02-24] MEDS: PANTOPRAZOLE 40 MG TABLET PO SCH (08:01)
[2023-02-24] MEDS: CHOLECALCIFEROL 25 MCG (1000 IU) TABLET PO SCH (08:01)
[2023-02-24] MEDS: allopurinoL 100 MG TAB PO SCH (08:01)
[2023-02-24] MEDS: DULoxetine HCL 60 MG CAPSULE.DR PO SCH (08:01)
[2023-02-24] MEDS: DAPAGLIFLOZIN PROPANEDIOL 5 MG TABLET PO SCH (08:01)
--- NOTE | 2023-02-24 09:45 | P.CNNES ---
History of Present Illness Consult date: 02/23/23 Requesting physician: Anthony Dougherty Reason for Consult: Altered mental status History of Present Illness: Patient is a 82-year-old female came to the hospital yesterday at 1:51 PM for possible UTI. Patient states that she gets frequent UTI and she gets septic. Patient's daughter brought her here. Patient states that her daughter believe that she was confused although she did not realize that she was confused. I c alled the patient's daughter on the phone, who provided with additional history. She states that patient was brought to the hospital on 02/21/2023 because she was sick, confused and was diagnosed with bladder infection. She was sent home from the hospital. Patient's daughter lives in [place]. She came over and saw vision was looking sick, confused, did not know the day, her birthday or the year and was confused. She would not take her medication, which was unusual. She was not normal like herself. She was "out of it". No report of any stroke symptoms. Therefore patient was brought back to the hospital. Vital signs on arrival blood pressure 130/79, pulse rate 105, temperature 97.9. Blood test shows normal CBC, PT/PTT, normal CMP, troponin is normal, ammonia 9, BNP 280, UA shows positive nitrite, moderate amount of leukocyte Estrace, 28 WBC and rare bacteria. Urine drug screen positive for opiates. CT head showed [id number] cerebral cortical volume loss. Moderate patchy burden of chronic small vessel ischemic disease. No acute intracranial abnormality seen. Severe chronic left maxillary sinusitis. CT of the cervical spine showed moderate to advanced multilevel spondylitic change. Degenerative grade 1 spondylolisthesis C4-C5, C5-C6 and C7-T1. Nearly grade 2 anterolisthesis of C3-C4. No acute fracture of the cervical spine. Chest x-ray revealed mild cardiomegaly and hypoventilatory changes. Correlate to exclude mild pulmonary vascular congestion. X-ray of the abdomen revealed no evidence for free air or bowel obstruction. No significant stool burden. Large body habitus. EKG shows electronic atrial pacemaker. Patient had an EEG on which was abnormal EEG due to background slowing of at least moderate degree. This is suggestive of generalized cerebral dysfunction as can be seen with toxic metabolic encephalopathy or related to diffuse structural brain abnormality. Clinical correlation is recommended. No epileptiform activity was seen. Today patient's daughter believes that she is much better, and night and day di fference, she is almost back to baseline. Patient has never smoked, does not drink alcohol. She does have diabetes and hypertension. She has been using walker religiously for last 1 year. Before s he used cane off and on. Review of Systems Constitutional: Denies chills, Denies fever Eyes: right blurred vision (From cataract), denies diplopia, denies pain Ears: bilateral: tinnitus, deny: decreased hearing, ear discharge Ears, nose, mouth and throat: Denies headache, Denies sore throat Cardiovascular: Denies chest pain, Denies shortness of breath Respiratory: Denies cough, Denies excessive sputum Gastrointestinal: Denies abdominal pain, Denies constipation, Denies diarrhea, Denies nausea, Denies vomiting Genitourinary: Reports mixed incontinence, Denies dysuria, Denies hematuria Integumentary: Denies pruritus, Denies rash Neurological: Reports as per HPI Psychiatric: Denies anxiety, Denies depression Endocrine: Reports fatigue, Denies weight change Hematologic/Lymphatic: Reports easy bleeding (Since on blood thinners.), Reports easy bruising Past Medical History Past Medical History: Atrial Fibrillation, CVA/TIA, Diabetes Mellitus, Fibromyalgia, GERD/Reflux, Hypertension, Pneumonia, Rheumatoid Arthritis (RA) Additional Past Medical History / Comment(s): recurrent UTIs, respiratory failure, cateracts, recent TIA, possible A-fib History of Any Multi-Drug Resistant Organisms: None Reported Past Surgical History: Back Surgery, Hysterectomy Additional Past Surgical History / Comment(s): 5 back surgery since 2014, total hysterectomy Past Anesthesia/Blood Transfusion Reactions: No Reported Reaction Past Psychological History: No Psychological Hx Reported Smoking Status: Never smoker Past Alcohol Use History: None Reported Past Drug Use History: None Reported Medications and Allergies Home Medications Medication Instructions Recorded Confirmed Type Baclofen [Lioresal] 10 mg PO TID PRN 09/21/20 02/22/23 History allopurinoL [Zyloprim] 100 mg PO DAILY 09/21/20 02/22/23 History Cholecalciferol [Vitamin D3 (25 25 mcg PO DAILY 11/04/22 02/22/23 History Mcg = 1000 Iu)] Famotidine 20 - 40 mg PO HS PRN 11/04/22 02/22/23 History L.acidoph,Paracasei, B.lactis 1 cap PO DAILY 11/04/22 02/22/23 History [Probiotic] Losartan Potassium [Cozaar] 100 mg PO DAILY 11/04/22 02/22/23 History Omeprazole [PriLOSEC] 40 mg PO DAILY 11/04/22 02/22/23 History Ubidecarenone [Coenzyme Q10] 200 mg PO DAILY 11/04/22 02/22/23 History Vitamin B Complex 1 cap PO DAILY 11/04/22 02/22/23 History Apixaban [Eliquis] 5 mg PO BID #60 tab 11/13/22 02/22/23 Rx Dapagliflozin Propanediol [Farxiga] 5 mg PO DAILY #30 tab 11/13/22 02/22/23 Rx DULoxetine HCL [Cymbalta] 60 mg PO DAILY 01/03/23 02/22/23 History Multivit-Min/Iron/Folic/Lutein 1 tab PO DAILY 01/03/23 02/22/23 History [Centrum Silver Women Tablet] HYDROcodone/APAP 10-325MG [[place] 1 tab PO QID PRN #12 tab 01/08/23 02/22/23 Rx 10-325] Pregabalin [Lyrica] 150 mg PO BID #6 cap 01/08/23 02/22/23 Rx Furosemide [Lasix] 40 mg PO BID #14 tablet 02/20/23 02/22/23 Rx Potassium Chloride ER [K-Dur 20] 20 meq PO BID #14 tab 02/20/23 02/22/23 Rx Semaglutide [Ozempic] 0.5 mg SQ DIRECTED 02/20/23 02/22/23 History hydroCHLOROthiazide [Hydrodiuril] 25 mg PO DAILY 02/20/23 02/22/23 History Rosuvastatin [Crestor] 20 mg PO DAILY 02/22/23 02/22/23 History Allergies Allergy/AdvReac Type Severity Reaction Status Date / Time cephalexin [From Keflex] Allergy Rash/Hives Verified 02/22/23 17:24 clindamycin Allergy Rash/Hives Verified 02/22/23 17:24 Penicillins Allergy Unknown Verified 02/22/23 17:24 oxybutynin [From Ditropan] AdvReac Hallucinati Verified 02/22/23 17:24 ons Physical Examination - Vital Signs Vital Signs: Vital Signs Temp Pulse Pulse Resp BP BP Pulse Ox 02/23/23 14:00 97.6 F 89 17 100/61 94 L 02/23/23 07:37 97.6 F 80 19 104/67 93 L 02/23/23 01:39 98.2 F 65 18 108/69 91 L 02/22/23 19:37 97.7 F 97 16 139/89 94 L 02/22/23 18:13 97.9 F 66 19 146/83 96 02/22/23 17:40 98.0 F 90 18 102/76 95 Intake and Output 02/23/23 02/23/23 02/23/23 06:59 14:59 22:59 Output Total 400 1050 Balance -400 -1050 Output: Urine 400 1050 Other: Voiding Method External Catheter Patient is an elderly female, in no acute distress. Patient is alert awake oriented to time place and person. Patient knows it is February 2023 and that she is in [facility] in [place] and name of the current president. Speech and language functions are normal. Patient can name and repeat very well. No aphasia or dysarthria. Attention, concentration and fund of knowledge is adequate. On cranial nerve examination, pupils are equal, round and reacting to light, visual schrodeer are full on confrontation, with no neglect on double simultaneous stimulation. Extraocular muscles are intact with no nystagmus. Face is symmetric, tongue protrudes to the midline. Palatal elevation and sensation normal, hearing is moderately decreased bilaterally for finger rubbing and shoulder shrug normal, facial sensation normal. On muscle strength testing, there is no pronator drift and the strength is normal in arms and legs distally and proximally, except right deltoid which is weak about 4+5-perhaps related to rotator cuff or shoulder issue. Deep tendon reflexes are symmetric 1-1+ in the biceps, 1-1+ at the brachioradialis, 1 at the knees, 2 ankles and plantars downgoing bilaterally. Sensory to touch is equal with no neglect on double simultaneous stimulation. Cerebellar function showed no ataxia for oikxwq-[id number] testing. No dysdiadochokinesia. No ataxia for [id number] testing on either side. Tone and bulk of muscles normal. Gait deferred.. On general examination, there is no carotid bruit or murmur, S1-S2 audible. Chest is clear on consultation. Abdomen is soft nontender. No organomegaly, bowel sounds present. Peripheral pulses are present. No edema. Results - Laboratory Findings CBC and BMP: 02/22/23 14:32 02/22/23 14:32 Abnormal Lab Findings: Abnormal Labs 02/22/23 02/22/23 02/22/23 14:32 14:32 14:32 Hct 48.2 H Lymphocytes # 0.8 L INR 1.2 H BUN 18 H Glucose 157 H POC Glucose (mg/dL) Plasma Lactic Acid Tico Urine Appearance Urine Blood Urine Nitrite Ur Leukocyte Esterase Urine RBC Urine WBC Ur Squamous Epith Cells Urine Bacteria Urine Mucus Urine Opiates Screen 02/22/23 02/22/23 02/22/23 14:32 15:18 15:18 Hct Lymphocytes # INR BUN Glucose POC Glucose (mg/dL) Plasma Lactic Acid Tico 2.1 H* Urine Appearance Cloudy H Urine Blood Large H Urine Nitrite Positive H Ur Leukocyte Esterase Moderate H Urine RBC 137 H Urine WBC 28 H Ur Squamous Epith Cells 6 H Urine Bacteria Rare H Urine Mucus Rare H Urine Opiates Screen Detected H 02/22/23 02/23/23 02/23/23 20:39 05:54 11:35 Hct Lymphocytes # INR BUN Glucose POC Glucose (mg/dL) 140 H 127 H 160 H Plasma Lactic Acid Tico Urine Appearance Urine Blood Urine Nitrite Ur Leukocyte Esterase Urine RBC Urine WBC Ur Squamous Epith Cells Urine Bacteria Urine Mucus Urine Opiates Screen 02/23/23 16:22 Hct Lymphocytes # INR BUN Glucose POC Glucose (mg/dL) 158 H Plasma Lactic Acid Tico Urine Appearance Urine Blood Urine Nitrite Ur Leukocyte Esterase Urine RBC Urine WBC Ur Squamous Epith Cells Urine Bacteria Urine Mucus Urine Opiates Screen Assessment and Plan Assessment: * Altered mental status, likely due to mild metabolic encephalopathy related to acute UTI. Urine cultures have grown > 100,000 CFU per mL gram-negative bacilli. * Hypertension * Diabetes * Atrial fibrillation on Eliquis * Frequent UTI Plan: * Patient's neurological examination is normal. Her mentation is back to normal. * For UTI, patient is being treated for UTI with aztreonam 1 g every 8 hours. ID on board. * B12 427, TSH 1.23 both normal. * Hemoglobin A1c 7.1 on 11/05/2022. * Carotid Doppler on 11/11/2022 revealed no hemodynamically significant ICA stenosis on either side. Antegrade flow in both vertebral arteries. * 2-D echo on 11/12/2022 revealed technically suboptimal study and there is mild global decrease in contractility, with EF 45-50% moderate concentric LVH. Bubble study does not suggest any shunt. Mild MR, TR. Left atrial size normal. * Neurologically, no other workup indicated. * Neurologically clear. Thank you for the consult.
[2023-02-24 11:37] LABS: Glucose,Whole Blood 192 mg/dL (70-110)
[2023-02-24 11:53] LABS: Basophils # (A) 0.02 X 10*3/uL (0.00-0.10); Basophils % (A) 0.3 %; Eosinophils # (A) 0.23 X 10*3/uL (0.04-0.35); Lymphocytes # (A) 0.69 X 10*3/uL (0.90-5.00); Lymphocytes % (A) 11.9 %; MCH 28.6 pg (27.0-32.0); MCHC 30.8 d/dL (32.0-37.0); MCV 93.1 FL (80.0-97.0); Mean Platelet Volume 11.3 FL (9.5-12.2); Monocytes # (A) 0.92 X 10*3/uL (0.20-1.00); Monocytes % (A) 15.9 %; NRBC Per 100 WBC 0 X 10*3/uL (0.00-0.01); Neutrophils # (A) 3.91 X 10*3/uL (1.80-7.70); Neutrophils % (A) 67.4 %; Platelet Count 197 X 10*3/uL (140-440); RBC 4.19 X 10*6/uL (4.10-5.20); RDW 14.8 % (11.5-14.5)
[2023-02-24 12:33] LABS: ALT 15 U/L (8-44); AST 13 U/L (13-35); Albumin 3.4 d/dL (3.8-4.9); Albumin/Globulin Ratio 1.79 Ratio (1.60-3.17); Alkaline Phosphatase 45 U/L (41-126); Blood Urea Nitrogen 18.1 mg/dL (9.0-27.0); Carbon Dioxide 24.5 mmol/L (21.6-31.8); Chloride 101 mmol/L (96-109); Globulin 1.9 d/dL (1.6-3.3); Glucose 128 mg/dL (70-110); Potassium 3.6 mmol/L (3.5-5.5); Sodium 139 mmol/L (135-145); Total Bilirubin 0.3 mg/dL (0.3-1.2); Total Protein 5.3 d/dL (6.2-8.2)
[2023-02-24 16:26] LABS: Glucose,Whole Blood 167 mg/dL (70-110)
--- NOTE | 2023-02-24 19:24 | P.PN ---
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 Patient was recently hospitalized at [facility] after she was admitted for metabolic encephalopathy due possible TIA/CVA and was treated for urinary tract infection, and patient was doing fine, she was supposed to be started on Cystex for urinary tract infection prevention however she never started it ALLERGIC of the medication at home, patient called the office on Friday because of increased swelling in both lower extremities she was not having any urinary symptoms at that time, she went to the emergency department for evaluation of possible heart failure, she was placed on Lasix 40 mg orally twice every day as well as potassium supplementation since the Hydrocort thiazide was not working, the urinalysis at that time was negative for UTI, patient went home and came back to the hospital in 24 hours after her daughter brought her in she was visiting from [facility] and she was supposed to take her mother with her down to spend a couple weeks with her, but she became quite confused and she ended up bringing her to the ER for evaluation she was found to have a urinary tract infection with sepsis she was started on IV antibiotic in the form of Azactam 1 g IV piggyback every 8 hours, and she was admitted to the hospital after obtaining blood cultures urine culture and infectious disease consultation. 02/24: Patient is doing better today she is more awake and more alert, she continues to have some burning sensation in both feet, she denies any chest pain, or shortness breath, she has been demented and IV antibiotic in the form of Azactam 1 g IV piggyback every 8 hours, urine culture showing gram-negative bacilli awaiting the final result hopefully she will be discharged home tomorrow morning. REVIEW OF SYSTEMS Constitutional: No fever, no chills, no night sweats. No weight change. No weakness, fatigue or lethargy. No daytime sleepiness. HEENT: No headache. No blurred vision or double vision, no loss of vision. Chronic loss of Hearing, no ringing in the ears, no dizziness. No nasal drainage or congestion. No epistaxis. No sore throat. Lungs: No shortness of breath, cough, no sputum production. No wheezing. Cardiovascular: No chest pain, no lower extremity edema. No palpitations. No paroxysmal nocturnal dyspnea. No orthopnea. No lightheadedness or dizziness. No syncopal episodes. Abdominal: No abdominal pain. No nausea, vomiting. No diarrhea. No constipation. No bloody or tarry stools. No loss of appetite. Genitourinary: positive for dysuria, increased frequency, urgency. No urinary retention. Musculoskeletal: No myalgias. Noted muscle weakness, noted gait dysfunction, fa ll at home. No back pain. No neck pain. Integumentary: No wounds. No rash or pruritus. No unusual bruising. No change in hair or nails. Neurologic: Noted aphasia. No facial droop. Noted change in mentation. No head injury. No headache. No paralysis. No paresthesia. Psychiatric: No depression. No anxiety. No mood swings. Endocrine: No abnormal blood sugars. No weight change. No excessive sweating or thirst. No cold intolerance. PHYSICAL EXAMINATION Gen: This is an 82-year-old obese female. She is resting and appears to be comfortable and in no acute distress. HEENT: Head is atraumatic, normocephalic. Pupils equal, round. Sclerae is anicteric. NECK: Supple. No JVD. No lymphadenopathy. No thyromegaly. LUNGS: Clear to auscultation. No wheezes or rhonchi. No intercostal retractions. HEART: First heart sound is depressed, second heart sound is normal, 2/6 systolic ejection murmur at the left sternal border. ABDOMEN: Soft, mild tenderness to the epigastric area, no rebound or guarding positive bowel sounds EXTREMITIES: No pedal edema. No calf tenderness, DP+2 bilaterally NEUROLOGICAL: Patient is awake, alert and oriented to person and place, CN II- XII are grossly intact muscle power 4/5 in bilateral upper and lower extremities. ASSESSMENT AND PLAN 1. Metabolic encephalopathy secondary to UTI with sepsis. Continue patient on IV antibiotic in the form of Azactam 1 g of piggyback every 8 hours until the final cultures are back,, monitor the patient very closely, infectious disease consultation. 2. Paroxysmal Atrial fibrillation. we will continue with Eliquis 5 mg po bid and we will continue to monitor 3. Recurrent urinary tract infection. last one was E.Coli with Fluoroquinolone resistance. Patient will need urology referral for possible incomplete bladder emptying. 4. Hypertension and hypertensive cardiovascular disease. Resume patient on hydrochlorothiazide 25 mg daily. Continue patient on losartan 100 mg daily. 5. Hyperlipidemia. we will continue Atorvastatin 40 mg po daily 6. Diabetes mellitus type 2. Continue patient on add NovoLog scale before meals and at bedtime, we will continue wit Farxiga 5 mg po daily 7. Diabetic polyneuropathy. Continue Duloxetin 60 mg po daily 8. 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 Continue baclofen 10 mg 3 times daily as needed. 9. Idiopathic gout. Continue allopurinol 100 mg daily. 10. Obstructive sleep apnea. Continue CPAP. 11. GI prophylaxis and gastroesophageal reflux disease. Continue Protonix 40 mg po daily 12. DVT prophylaxis. we will continue with Apixaban 5 mg po bid. 14. Diabetic polyneuropathy. Continue pregabalin 50 mg orally twice every day. 15. Hopefully home in the next 24 hours. Objective - Vital Signs Vital signs: Vital Signs Temp 98.3 F 02/24/23 01:13 Pulse 96 02/24/23 01:13 Resp 16 02/24/23 01:13 BP 121/66 02/24/23 01:13 Pulse Ox 93 L 02/24/23 01:13 FiO2 Intake & Output 02/23/23 02/24/23 02/24/23 18:59 06:59 18:59 Output Total 1050 800 Balance -1050 -800 Output: Urine 1050 800 Other: Voiding Method External Catheter External Catheter - Labs CBC & Chem 7: 02/24/23 06:22 02/24/23 06:22 Labs: Abnormal Lab Results - Last 24 Hours (Table) 02/23/23 02/23/23 02/23/23 Range/Units 11:35 16:22 20:46 POC Glucose (mg/dL) 160 H 158 H 151 H (70-110) mg/dL 02/24/23 Range/Units 05:33 POC Glucose (mg/dL) 127 H (70-110) mg/dL Microbiology - Last 24 Hours (Table) 02/22/23 17:50 Blood Culture - Preliminary Blood 02/22/23 15:18 Urine Culture - Preliminary Urine,Catheterized Gram Neg Bacilli
[2023-02-24] MEDS: SODIUM CHLORIDE 0.9% 1,000 ML IV SCH (20:40)
[2023-02-24 21:43] LABS: Glucose,Whole Blood 180 mg/dL (70-110)
--- NOTE | 2023-02-24 22:51 | P.PN ---
Subjective Progress Note Date: 02/24/23 Principal diagnosis: UTI Patient is a 89-year-old female with a past medical history significant for type 2 diabetes mellitus hypertension hyperlipidemia patient was brought into the ER for evaluation of increasing confusion and concerning for a urinary tract infection. Patient did have multiple antibiotic allergies On today's evaluation that is 02/24/2023 patient denies having any fever or any chills patient is more awake and alert and is breathing comfortably on room air denies any chest pain shortness of breath or cough no abdominal pain and no diarrhea Objective - Vital Signs Vital signs: Vital Signs Temp 97.6 F 02/24/23 08:00 Pulse 71 02/24/23 08:00 Resp 14 02/24/23 08:00 BP 113/72 02/24/23 08:00 Pulse Ox 94 L 02/24/23 08:00 FiO2 Intake & Output 02/23/23 02/24/23 02/24/23 18:59 06:59 18:59 Output Total 1050 800 Balance -1050 -800 Output: Urine 1050 800 Other: Voiding Method External Catheter External Catheter External Catheter - Exam GENERAL DESCRIPTION: Elderly Female lying in bed in no distress RESPIRATORY SYSTEM: Unlabored breathing , decreased breath sounds at bases HEART: S1 S2 regular rate and rhythm ,no loud murmurs ABDOMEN: Soft , no tenderness EXTREMITIES: No edema feet - Labs CBC & Chem 7: 02/24/23 06:22 02/24/23 06:22 Labs: Abnormal Lab Results - Last 24 Hours (Table) 02/23/23 02/23/23 02/23/23 Range/Units 11:35 16:22 20:46 POC Glucose (mg/dL) 160 H 158 H 151 H (70-110) mg/dL 02/24/23 Range/Units 05:33 POC Glucose (mg/dL) 127 H (70-110) mg/dL Microbiology - Last 24 Hours (Table) 02/22/23 17:50 Blood Culture - Preliminary Blood 02/22/23 15:18 Urine Culture - Preliminary Urine,Catheterized Gram Neg Bacilli Assessment and Plan (1) UTI (urinary tract infection) Current Visit: Yes Status: Acute Code(s): N39.0 - URINARY TRACT INFECTION, SITE NOT SPECIFIED SNOMED Code(s): 94223827 (2) Acute encephalopathy Current Visit: No Status: Acute Code(s): G93.40 - ENCEPHALOPATHY, UNSPECI FIED SNOMED Code(s): 68593333 Plan: 1patient presented hospital with mental status changes likely multifactorial patient did have a history of recurrent UTI positive UA and concern for possible UTI from enteric gram-negative pathogen. 2patient with multiple antibiotic allergies that would limit the number of antibiotics safe to use. 3Pt did have some clinical improvment , Urine is growing gram negative , we will continue patient on Azactam while waiting for the culture to finalize. Dictation was produced using [employer] dictation software. please excuse any grammatical, word or spelling errors. Time with Patient: Less than 30
[2023-02-25] MEDS: AZTREONAM 1 GM in SODIUM CHLORIDE 0.9% 50 ML IVPB SCH ×2 (03:58→11:58)
[2023-02-25 06:06] LABS: Glucose,Whole Blood 145 mg/dL (70-110)
[2023-02-25] MEDS: INSULIN ASPART (NovoLOG) 100 UNIT/ML VIAL SQ SCH ×2 (06:08→12:34)
[2023-02-25 08:56] LABS: Basophils # (A) 0.03 X 10*3/uL (0.00-0.10); Basophils % (A) 0.5 %; Eosinophils # (A) 0.25 X 10*3/uL (0.04-0.35); HCT 41.3 % (37.2-46.3); HGB 12.9 d/dL (12.0-15.0); Lymphocytes % (A) 11.2 %; MCHC 31.2 d/dL (32.0-37.0); MCV 92.8 FL (80.0-97.0); Monocytes # (A) 0.97 X 10*3/uL (0.20-1.00); Monocytes % (A) 15.5 %; NRBC Per 100 WBC 0 X 10*3/uL (0.00-0.01); Neutrophils # (A) 4.28 X 10*3/uL (1.80-7.70); Neutrophils % (A) 68.5 %; Platelet Count 187 X 10*3/uL (140-440); RBC 4.45 X 10*6/uL (4.10-5.20); RDW 14.5 % (11.5-14.5); WBC 6.25 X 10*3/uL (4.50-10.00)
[2023-02-25 09:36] LABS: ALT 15 U/L (8-44); AST 19 U/L (13-35); Albumin 3.6 d/dL (3.8-4.9); Alkaline Phosphatase 48 U/L (41-126); Chloride 104 mmol/L (96-109); Glucose 135 mg/dL (70-110); Potassium 3.7 mmol/L (3.5-5.5); Sodium 140 mmol/L (135-145); Total Bilirubin 0.3 mg/dL (0.3-1.2); Total Protein 5.6 d/dL (6.2-8.2)
[2023-02-25] MEDS: APIXABAN 5 MG TAB PO SCH (10:09)
[2023-02-25] MEDS: hydroCHLOROthiazide 25 MG TAB PO SCH (10:09)
[2023-02-25] MEDS: LOSARTAN 50 MG TAB PO SCH (10:09)
[2023-02-25] MEDS: POTASSIUM CHLORIDE ER 20 MEQ TAB.ER PO SCH (10:09)
[2023-02-25] MEDS: ATORVASTATIN 40 MG TAB PO SCH (10:09)
[2023-02-25] MEDS: CHOLECALCIFEROL 25 MCG (1000 IU) TABLET PO SCH (10:09)
[2023-02-25] MEDS: LACTOBACILLUS ACIDOPHILUS/PECT 1 EACH CAPSULE PO SCH (10:09)
[2023-02-25] MEDS: FUROSEMIDE 40 MG TAB PO SCH (10:09)
[2023-02-25] MEDS: PANTOPRAZOLE 40 MG TABLET PO SCH (10:10)
[2023-02-25] MEDS: allopurinoL 100 MG TAB PO SCH (10:10)
[2023-02-25] MEDS: DULoxetine HCL 60 MG CAPSULE.DR PO SCH (10:10)
[2023-02-25] MEDS: PREGABALIN 75 MG CAP PO SCH (10:10)
[2023-02-25] MEDS: DAPAGLIFLOZIN PROPANEDIOL 5 MG TABLET PO SCH (10:10)
[2023-02-25] MEDS: MULTIVITAMINS, THERA 1 EACH TAB PO SCH (10:10)
[2023-02-25 11:28] LABS: Glucose,Whole Blood 170 mg/dL (70-110)
[2023-02-25 14:40] VITALS: BP 115/76; PULSE 110; RESP 16; TEMP 97.7
--- NOTE | 2023-02-25 16:11 | P.PN ---
Subjective Progress Note Date: 02/25/23 Principal diagnosis: UTI Patient is a 89-year-old female with a past medical history significant for type 2 diabetes mellitus hypertension hyperlipidemia patient was brought into the ER for evaluation of increasing confusion and concerning for a urinary tract infection. Patient did have multiple antibiotic allergies On today's evaluation that is 02/25/2023 patient may still be febrile, patient is breathing comfortably on room air, the patient denies any chest pain shortness of breath or cough no abdominal pain and no diarrhea Objective - Vital Signs Vital signs: Vital Signs Temp 97.6 F 02/25/23 08:00 Pulse 73 02/25/23 08:00 Resp 14 02/25/23 08:00 BP 125/70 02/25/23 08:00 Pulse Ox 93 L 02/25/23 08:00 FiO2 Intake & Output 02/24/23 02/25/23 02/25/23 18:59 06:59 18:59 Intake Total 1080 210 Output Total 1250 1900 Balance -170 -1900 210 Intake: Intake, IV Titration 210 Amount Aztreonam 1 gm In Sodium 50 Chloride 0.9% 50 ml @ 16. 667 mls/hr IVPB Q8H JUANITO Rx#:[id number] Sodium Chloride 0.9% 1, 160 000 ml @ 20 mls/hr IV . Q24H JUANITO Rx#:[id number] Oral 1080 Output: Urine 1250 1900 Other: Voiding Method External Catheter External Catheter External Catheter # Voids 2 - Exam GENERAL DESCRIPTION: Elderly Female lying in bed in no distress RESPIRATORY SYSTEM: Unlabored breathing , decreased breath sounds at bases HEART: S1 S2 regular rate and rhythm ,no loud murmurs ABDOMEN: Soft , no tenderness EXTREMITIES: No edema feet - Labs CBC & Chem 7: 02/25/23 06:03 02/25/23 06:03 Labs: Abnormal Lab Results - Last 24 Hours (Table) 02/24/23 02/24/23 02/25/23 Range/Units 16:25 21:41 06:03 MCHC 31.2 L (32.0-37.0) d/dL Lymphocytes # 0.70 L (0.90-5.00) X 10*3/uL Anion Gap (4.00-12.00) mmol/L Glucose (70-110) mg/dL POC Glucose (mg/dL) 167 H 180 H (70-110) mg/dL Calcium (8.7-10.3) mg/dL Total Protein (6.2-8.2) d/dL Albumin (3.8-4.9) d/dL 02/25/23 02/25/23 02/25/23 Range/Units 06:03 06:04 11:27 MCHC (32.0-37.0) d/dL Lymphocytes # (0.90-5.00) X 10*3/uL Anion Gap 14.00 H (4.00-12.00) mmol/L Glucose 135 H (70-110) mg/dL POC Glucose (mg/dL) 145 H 170 H (70-110) mg/dL Calcium 8.0 L (8.7-10.3) mg/dL Total Protein 5.6 L (6.2-8.2) d/dL Albumin 3.6 L (3.8-4.9) d/dL Microbiology - Last 24 Hours (Table) 02/22/23 19:19 Blood Culture - Preliminary Blood 02/22/23 17:50 Blood Culture - Preliminary Blood 02/22/23 15:18 Urine Culture - Final Urine,Catheterized Citrobacter freundii Assessment and Plan (1) UTI (urinary tract infection) Current Visit: Yes Status: Acute Code(s): N39.0 - URINARY TRACT INFECTION, SITE NOT SPECIFIED SNOMED Code(s): 81224012 (2) Acute encephalopathy Current Visit: No Status: Acute Code(s): G93.40 - ENCEPHALOPATHY, UNSPECIFIED SNOMED Code(s): 79828739 Plan: 1patient presented hospital with mental status changes likely multifactorial patient did have a history of recurrent UTI positive UA and concern for possible UTI from enteric gram-negative pathogen. 2patient with multiple antibiotic allergies that would limit the number of antibiotics safe to use. 3patient did have clinical improvment , Urine is has been finalized as Citrobacter that is sensitive to Cipro, she will finish therapy with oral Cipro 7 days and a close outpatient follow-up Dictation was produced using [employer] software. please excuse any grammatical, word or spelling errors. Time with Patient: Less than 30
== END 2023-02-25 17:00 | disposition home or self-care (01) | DRG 871 ==
LOC: EC 13:51 → 4SSUR 17:03
PROVIDERS: ADMIT Internal Medicine; ATTEND Internal Medicine
DX: A41.50 Gram-negative sepsis, unspecified (principal); G93.41 Metabolic encephalopathy; N39.0 Urinary tract infection, site not specified; R65.20 Severe sepsis without septic shock; E11.42 Type 2 diabetes mellitus with diabetic polyneuropathy; E78.5 Hyperlipidemia, unspecified; G47.33 Obstructive sleep apnea (adult) (pediatric); I11.9 Hypertensive heart disease without heart failure; I48.0 Paroxysmal atrial fibrillation; E66.9 Obesity, unspecified; J32.0 Chronic maxillary sinusitis; Z68.39 Body mass index [BMI] 39.0-39.9, adult; Z60.2 Problems related to living alone; K21.9 Gastro-esophageal reflux disease without esophagitis; M06.9 Rheumatoid arthritis, unspecified; M10.00 Idiopathic gout, unspecified site; M17.0 Bilateral primary osteoarthritis of knee; M43.12 Spondylolisthesis, cervical region; M47.26 Other spondylosis with radiculopathy, lumbar region; M79.7 Fibromyalgia; Z79.01 Long term (current) use of anticoagulants; Z79.84 Long term (current) use of oral hypoglycemic drugs; Z79.899 Other long term (current) drug therapy; Z66 Do not resuscitate; Z82.49 Family history of ischemic heart disease and other diseases of the circulatory system; Z86.73 Personal history of transient ischemic attack (TIA), and cerebral infarction without residual deficits; Z87.440 Personal history of urinary (tract) infections; Z88.1 Allergy status to other antibiotic agents; Z88.0 Allergy status to penicillin; Z86.010 Personal history of colon polyps; Z98.1 Arthrodesis status
CPT/HCPCS: 36415; 70450; 71046; 72125; 74019; 80053; 80306; 81001; 82140; 83605; 83880; 84484; 85025; 85610; 85730; 87040; 87077; 87086; 87186; 93005; 96361; 96374; 99285

== ENCOUNTER → 2023-06-10 | Outpatient (CLI) | payer MEDICARE, OTHER ==
--- NOTE | 2023-06-11 21:22 | CT ---
EXAMINATION TYPE: CT right knee - [facility] Protocol DATE OF EXAM: 06/10/2023 COMPARISON: None HISTORY: 82 year-old female M1 7.11, unilateral primary osteoarthritis right knee presurgical plannin g CT DLP: 768.8 mGycm. Automated exposure control for dose reduction was used. TECHNIQUE: CT of the right knee for surgical planning purposes. Sagittal and coronal reconstruction. Additional scanning includes the pelvis and both ankles. FINDINGS: There is sigmoid diverticulosis. Rectus diastases. Tiny focus of air nondependently within the lumen of the bladder. There may be mild perivesicular fat stranding. Uterus surgically absent. Neither ovar y visualized. Multiple moderate degenerative change of both hips. There is a moderate to large joint effusion. No sizable Fernandez's cyst. There is tricompartmental degen erative change, severe in the medial and patellofemoral compartments. Some generalized soft tissue swelling at the distal legs, ankles, and hindfoot regions. IMPRESSION: 1. Imaging for surgical planning purposes. There is tricompartmental right knee osteoarthrosis, sever e in the medial and patellofemoral compartments with associated joint effusion. 2. A tiny focus of air nondependently within the bladder. Query any recent instrumentation or underly ing infection.
== END | disposition home or self-care (01) ==
LOC: RADCTMAIN 15:44
PROVIDERS: ATTEND Orthopaedic Surgery
DX: M17.11 Unilateral primary osteoarthritis, right knee (principal); M25.461 Effusion, right knee; E11.9 Type 2 diabetes mellitus without complications; M21.162 Varus deformity, not elsewhere classified, left knee; M21.161 Varus deformity, not elsewhere classified, right knee; I89.0 Lymphedema, not elsewhere classified; L03.115 Cellulitis of right lower limb; L03.116 Cellulitis of left lower limb

== ENCOUNTER → 2023-07-09 | Outpatient (CLI) | payer MEDICARE, OTHER ==
[2023-07-09 16:27] LABS: INR 1.1 (<1.2); Partial Thromboplastin Time 28.3 sec (22.0-30.0); Prothrombin Time 11.9 sec (10.0-12.5)
[2023-07-10 02:53] LABS: ALT 15 U/L (8-44); AST 20 U/L (13-35); Albumin 4.3 g/dL (3.8-4.9); Albumin/Globulin Ratio 1.79 Ratio (1.60-3.17); Alkaline Phosphatase 62 U/L (41-126); BUN/Creat Ratio 15.55 Ratio (12.00-20.00); Blood Urea Nitrogen 17.1 mg/dL (9.0-27.0); Calcium 10.5 mg/dL (8.7-10.3); Chloride 98 mmol/L (96-109); Globulin 2.4 g/dL (1.6-3.3); Glucose 91 mg/dL (70-110); Potassium 4.2 mmol/L (3.5-5.5); Sodium 142 mmol/L (135-145); Total Bilirubin 0.4 mg/dL (0.3-1.2); Total Protein 6.7 g/dL (6.2-8.2)
[2023-07-10 02:59] LABS: HCT 46.4 % (37.2-46.3); HGB 14.6 g/dL (12.0-15.0); MCH 28.5 pg (27.0-32.0); MCHC 31.5 g/dL (32.0-37.0); MCV 90.6 FL (80.0-97.0); Mean Platelet Volume 11.4 FL (9.5-12.2); NRBC Per 100 WBC 0 X 10*3/uL (0.00-0.01); Platelet Count 242 X 10*3/uL (140-440); RBC 5.12 X 10*6/uL (4.10-5.20); WBC 7.84 X 10*3/uL (4.50-10.00)
[2023-07-10 04:07] LABS: Appearance,Urine Cloudy (Clear); Bilirubin,Urine Small (Negative); Blood,Urine Moderate (Negative); Color,Urine Dark Yellow (Yellow); Ketones,Urine Trace (Negative); Nitrite,Urine Positive (Negative); Specific Gravity,Urine 1.026 (1.001-1.030)
[2023-07-10 04:59] LABS: Bacteria,Urine 4+ (None Seen)
== END | disposition home or self-care (01) ==
LOC: LABPAT 15:13
PROVIDERS: ATTEND Orthopaedic Surgery
DX: Z01.812 Encounter for preprocedural laboratory examination (principal); M17.11 Unilateral primary osteoarthritis, right knee; E11.9 Type 2 diabetes mellitus without complications
CPT/HCPCS: 80053; 81001; 83036; 85027; 85610; 85730; 87070

== ENCOUNTER 2023-07-23 11:16 | Inpatient (IN) | payer MEDICARE, OTHER ==
[2023-07-17 15:26] VITALS: BMI 36.7
[~2023-07-23 11:16] MED LIST: ACETAMINOPHEN TAB 500 MG TAB PO PRN; DEXAMETHASONE SOD PHOSPHATE 10 MG/ML 1 ML VIAL IV PRN; DEXAMETHASONE SOD PHOSPHATE 4 MG/ML 1 ML VIAL IV ONE; DOCUSATE 100 MG CAP PO PRN; FAMOTIDINE 20 MG/2 ML VIAL IVP PRN; HYDROmorphone 0.5 MG/0.5 ML SYRINGE IVP PRN; KETOROLAC 15 MG/ML 1 ML VIAL IVP PRN; LIDOCAINE 1% (10MG/ML) FOR IV START INTRADERMA PRN; MIDAZOLAM 2 MG/2 ML VIAL IV PRN; ONDANSETRON 4 MG/2 ML VIAL IVP ONE; ONDANSETRON 4 MG/2 ML VIAL IVP PRN; TRANEXAMIC 1,000 MG/100ML-NACL 1,000 MG in SALINE 1 100ML.BAG IV PRN; TRANEXAMIC 1,000 MG/100ML-NACL 1,000 MG in SALINE 1 100ML.BAG IVPB PRN; oxyCODONE ER 10 MG TAB.ER.12H PO PRN
[2023-07-23] MEDS: LACTATED RINGERS 1,000 ML IV SCH ×2 (11:48→22:19)
[2023-07-23] MEDS ORDERED: MIDAZOLAM 2 MG/2 ML VIAL IVP ONE (12:39)
[2023-07-23] MEDS ORDERED: fentaNYL (PF) 50 MCG/ML 2 ML AMP IVP ONE (12:39)
[2023-07-23 12:44] LABS: Glucose,Whole Blood 117 mg/dL (70-110)
--- NOTE | 2023-07-23 13:00 | P.ANPRN ---
Procedure Note - Anesthesia - Nerve Block Performed Right Adductor Canal Single Time Out Performed: Yes Date of Procedure: 07/23/23 Procedure Start Time: 12:39 Procedure Stop Time: 12:44 Location of Patient: PreOp Indication: Acute Post-Operative Pain, Requested by Surgeon Sedation Type: Sedate with meaningful contact maintained Preparation: Sterile Prep Position: Supine Needle Types: Pajunk Needle Gauge: 21 Ultrasound used to visualize needle placement: Yes Ultrasound used to observe medication spread: Yes Injectate: 0.5% Ropivacaine (see comment for volume) (15 ml + 15 Lidocaine 1 % with epi 1/200k) Adjunct: Epinephrine (see comment for dilution ratio) Blood Aspirated: No Pain Paresthesia on Injection Noted: No Resistance on Injection: Normal Image Stored and Saved: Yes Events: Uneventful and Well Tolerated
--- NOTE | 2023-07-23 13:03 | P.ANPRN ---
Procedure Note - Anesthesia - Nerve Block Performed Right Leeroyck Single Time Out Performed: Yes Date of Procedure: 07/23/23 Procedure Start Time: 12:45 Procedure Stop Time: 12:53 Location of Patient: PreOp Indication: Acute Post-Operative Pain, Requested by Surgeon Sedation Type: Sedate with meaningful contact maintained Preparation: Sterile Prep Position: Supine Needle Types: Pajunk Needle Gauge: 21 Ultrasound used to visualize needle placement: Yes Injectate: 0.5% Ropivacaine (see comment for volume) (15 ml) Adjunct: Epinephrine (see comment for dilution ratio) (lidocaine 1% with epi 1/200k 15 ml) Blood Aspirated: No Pain Paresthesia on Injection Noted: No Resistance on Injection: Normal Image Stored and Saved: Yes Events: Uneventful and Well Tolerated
[2023-07-23] MEDS ORDERED: GLYCOPYRROLATE 0.2 MG/ML 2 ML VIAL ONE (13:11)
[2023-07-23] MEDS ORDERED: ROPIVACAINE 5 MG/ML 30 ML VIAL ONE (13:11)
[2023-07-23] MEDS ORDERED: ROCURONIUM 10 MG/ML (5 ML VIAL) IV ONE (13:11)
[2023-07-23] MEDS ORDERED: LIDOCAINE 1% INJ 10MG/ML (20 ML MDV) ONE (13:11)
[2023-07-23] MEDS ORDERED: PHENYLEPHRINE-0.9% NACL SYG 1,000 MCG/10 ML SYRINGE ONE (13:11)
[2023-07-23] MEDS ORDERED: ePHEDrine 50 MG/ML 1 ML VIAL ONE (13:11)
[2023-07-23] MEDS ORDERED: LIDOCAINE 1%-EPI 1:100,000 20 ML VIAL ONE (13:11)
[2023-07-23] MEDS ORDERED: PROPOFOL 10 MG/ML 20 ML VIAL IV ONE (13:11)
[2023-07-23] MEDS ORDERED: SUCCINYLCHOLINE CHLORIDE 200 MG/10 ML VIAL IV ONE (13:11)
[2023-07-23] MEDS ORDERED: TRANEXAMIC 1,000 MG/100ML-NACL PREMIX BAG ONE (13:11)
[2023-07-23] MEDS ORDERED: fentaNYL (PF) 50 MCG/ML 2 ML AMP ONE (13:11)
[2023-07-23] MEDS ORDERED: NEOSTIGMINE 1 MG/ML 10 ML VIAL ONE (13:11)
[2023-07-23] MEDS: ROPIVACAINE/EPI/CLONIDINE/KET 50 ML SYRINGE MISCELLANE PRN ×2 (13:54→14:57)
[2023-07-23] MEDS ORDERED: LACTATED RINGERS 1,000 ML IV ONE ×4 (13:55→17:02)
[2023-07-23] MEDS ORDERED: NALOXONE 0.4 MG/ML 1 ML VIAL IV PRN (15:46)
[2023-07-23] MEDS ORDERED: MAGNESIUM HYDROXIDE 2,400 MG/30 ML CUP PO PRN (15:46)
[2023-07-23] MEDS ORDERED: ONDANSETRON 4 MG/2 ML VIAL IVP PRN (15:46)
[2023-07-23] MEDS ORDERED: bisacodyL 10 MG SUPP RECTAL PRN (15:46)
[2023-07-23] MEDS ORDERED: HYDROcodone/APAP 5-325MG 1 EACH TAB PO PRN (15:46)
[2023-07-23] MEDS ORDERED: hydrOXYzine pamoate 25 MG CAP PO PRN (15:46)
[2023-07-23] MEDS ORDERED: HYDROmorphone 0.5 MG/0.5 ML SYRINGE IVP PRN (15:46)
--- NOTE | 2023-07-23 15:46 | P.OP ---
Date of Procedure: 07/23/23 Preoperative Diagnosis: 1. Severe right knee osteoarthritis 2. Type II Diabetes 3. Atrial fibrillation Postoperative Diagnosis: Same Procedure(s) Performed: 1. Right total knee arthroplasty 2. Computer assisted musculoskeletal navigation using CT/MRI images Implants: 1. [place]ena Triathlon CR Femur Size #2 2. Jenn Triathlon [place] Tibial Base Size #2 with 12x50 stem 3. Jenn Triathlon CS poly Size #13 4. Jenn Triathlon all poly patella, Size #29 Anesthesia: MIRELLA, regional Surgeon: Jordan Joiner Estimated Blood Loss (ml): 200 IV fluids (ml): 800 Pathology: none sent Condition: stable Disposition: PACU Indications for Procedure: I met with the patient preoperatively in the office setting and discussed treatment of their symptomatic knee arthritis. They failed a long course of nonsurgical treatment and elected to proceed with an elective total knee replacement. I discussed the potential risks and complications at length and gave them ample time to ask questions. Risks discussed included: risks from anesthesia, superficial site surgical infection, acute and/or chronic periprosthetic joint infection, delayed wound healing, drainage, wound necrosis, instability, stiffness, stiffness requiring manipulation and/or revision surgery, damage to local blood vessels or nerves, aseptic loosening of the implants, extensor mechanism issues including disruption, patellar maltracking, avascular necrosis etc., continued or worsened knee pain, generalized dissatisfaction with surgical outcome, need for revision surgery, an inability to regain preinjury level of function, DVT, PE, other medical complications, and possibly loss of life or limb. The patient voiced their understanding that while these are the most common complications other less common complications are possible. They provided both their verbal and written consent to go forward with surgery. Operative Findings: Severe tricompartmental osteoarthritis Description of Procedure: The patient was identified in preoperative holding and the correct operative extremity was verified and marked with a marker. I reviewed the consent form with the patient at length. All of their questions were answered. The patient was given a block by anesthesia. They were then brought back to the operating room. They were transferred onto the operating room table where a general anesthetic, preoperative antibiotics, and tranexamic acid were administered by anesthesia. A tourniquet was applied to the proximal aspect of the operative extremity. The contralateral extremity was padded under the heel and secured to the operating room table with a nonsterile blue towel and tape. The ipsilateral arm was carefully draped across the patient's chest and secured with a pillow and foam. A post was applied over the lateral aspect of the ipsilateral thigh and a bolster was placed under the ipsilateral foot. I verified that the operative extremity was stable and the knee was flexed to 90. The operative extremity was then placed in a leg reno, nonsterile drapes were applied, and the extremity was prepped and draped sterilely in the standard sterile fashion. Prior to starting surgery timeout was performed identifying the correct patient, operative extremity, and procedure. The leg was then elevated, exsanguinated with an Esmarch bandage, and the tourniquet was inflated. An anterior midline incision was made sharply with a scalpel. Once I had dissected deep to the superficial fascial layer medial and lateral flaps were elevated. A medial parapatellar arthrotomy was created. Upon opening the knee joint there were diffuse arthritic changes in all 3 compartments. The anterior horn of the medial meniscus were sharply released and a medial release was performed around the posterior medial corner of the knee to facilitate retractor placement. The fat pad was excised with electrocautery. The patella was found to be severely arthritic and a provisional cut was made with a sagittal saw to facilitate mobilization of the extensor mechanism during the procedure. Remnants of the ACL and PCL were then excised from the notch. 4 mm pins were then placed within the incision in the medial distal femur and proximal tibia. Arrays were applied to the pins and I verified they were completely tightened. The knee was then registered with the Njini robot and manipulations in implant position were made to balance the knee and opitmize implant position. Using the Mauro robotic saw all cuts were made in accordance with our plan. After all bony fragments had been removed the cuts were verified with the planar probe. The tibia was then subluxed forward and sized. The knee was brought into flexion and a lamina admissions advisor was placed to allow removal of the meniscal remnants both medially and laterally as well as posterior osteophytes. Local anesthetic was then infiltrated around the joint capsule. Trial implants were then placed within the knee. Range of motion and collateral ligament tension was then evaluated. Adjustments in implant size and position were then made accordingly. Once the knee was felt to be appropriately balanced the Mauro pins were removed. The patella was then recut, sized, and punched. A trial patellar button was then placed. With the trial components in place, the patella tracked midline. The femur was then drilled and the trial component removed. The trial tibial component was then appropriately rotated, pinned, and prepared for the keel. All trial components were then removed from the knee. The knee was thoroughly irrigated with pulsatile lavage. Cement was prepared via vacuum mixing in a bowl on the back table. I then hand pressurized cement into the femur and tibia and placed the implants beginning with the tibial base tray and poly liner, femoral component, and finally the patellar button. All extruded cement was removed including from the pin sites. Once the cement had hardened the knee was evaluated one final time with the final polyethylene liner in place. The knee had full extension and flexion and felt stable to varus and valgus stress throughout the arc of motion. The tourniquet was released and with the tourniquet down the patella tracked midline. All bleeders were controlled with electrocautery. The knee was then soaked for 3 minutes with a dilute Betadine soak. The knee was thoroughly irrigated using 3 L of sterile saline and pulsatile lavage. A deep drain was placed. The extensor mechanism was then reapproximated using pop off Vicryl sutures followed by a running barbed suture. The knee was then closed in layers with a 0 strata fix for the deep fascial layer, 2-0 strata fix for the superficial subcutaneous layer and Monocryl and Steri-Strips for the skin. A sterile dressing and drain sponge were applied. I verified that all instrument, sponge, and sharp counts were correct. The patient was then transferred off the operating room table, extubated, and brought to recovery having tolerated the procedure well. PLAN: The patient can weight-bear as tolerated on the operative extremity. DVT prophylaxis with aspirin 81 mg twice a day based on preoperative risk stratifica tion. Follow-up in the office in 2 weeks for wound check and x-rays of the knee including an AP and lateral.
--- NOTE | 2023-07-23 16:15 | XR ---
EXAMINATION TYPE: XR knee limited RT DATE OF EXAM: 07/23/2023 CLINICAL HISTORY: Postoperative evaluation Two views of the right knee are submitted. Identified are changes of total knee arthroplasty with femoral and tibial components appearing well seated. Postsurgical soft tissue changes are noted. Alignment is anatomic.
[2023-07-23] MEDS ORDERED: ALBUTEROL NEBULIZED 2.5 MG/3 ML INHALATION ONE (17:33)
[2023-07-23 17:38] LABS: Glucose,Whole Blood 183 mg/dL (70-110)
[2023-07-23] MEDS ORDERED: TEMAZEPAM 15 MG CAP PO PRN (22:00)
[2023-07-23] MEDS ORDERED: SODIUM CHLORIDE 0.9% 500 ML 500 ML IV ONE (22:15)
[2023-07-23] MEDS: SODIUM CHLORIDE 0.9% 1,000 ML IV SCH (22:19)
[2023-07-24] MEDS: SENNOSIDES-DOCUSATE SODIUM 1 EACH TAB PO SCH ×2 (00:42→20:57)
[2023-07-24] MEDS: APIXABAN 5 MG TAB PO SCH ×2 (00:42→08:44)
[2023-07-24] MEDS: SODIUM CHLORIDE 0.9% 1,000 ML IV SCH (00:44)
[2023-07-24] MEDS: HYDROcodone/APAP 10-325MG 1 EACH TAB PO PRN ×3 (05:06→19:41)
[2023-07-24 05:45] LABS: Glucose,Whole Blood 200 mg/dL (70-110)
--- NOTE | 2023-07-24 08:36 | P.PN ---
Subjective Progress Note Date: 07/24/23 The patient is doing well this morning. Her pain is controlled and she denies chest pain or shortness of breath. Her nurse states that over night her drain site became saturated with blood and her dressing had to be reinforced. Objective - Vital Signs Vital signs: Vital Signs Temp 97.3 F L 07/24/23 06:46 Pulse 85 07/24/23 06:46 Resp 18 07/24/23 06:46 BP 131/56 07/24/23 06:46 Pulse Ox 92 L 07/24/23 06:46 FiO2 Intake & Output 07/23/23 07/24/23 07/24/23 18:59 06:59 18:59 Intake Total 1950 Output Total 200 80 Balance 1750 -80 Weight 87.3 kg 87.3 kg Intake: IV 1950 Output: Drainage 80 Right Knee 80 Estimated Blood Loss 200 Other: Voiding Method Bedpan Diaper # Voids 3 - Exam The patient is alert and oriented. She is able to answer questions. A focused exam of the right leg was conducted. There is an andra wrap over her leg which was taken down. The anterior dressing over her incision is clean and intact. The dressing over her drain site is saturated with blood. This was removed and the drained pulled. There was a slow, steady amount of bleeding from the drain site. The site was reinforced with a gauze and ABD. Her leg is soft and compressible. She is able to actively plantarflex her ankle and toes. - Labs Labs: Abnormal Lab Results - Last 24 Hours (Table) 07/23/23 07/23/23 07/24/23 Range/Units : 17:37 05:42 POC Glucose (mg/dL) 117 H 183 H 200 H (70-110) mg/dL Assessment and Plan Assessment: POD #1 s/p R TKA Atrial fibrillarion on Eliquis DM2, preop A1C was 7.1 Plan: 1. WBAT right LE, up with assistance 2. DVT prophylaxis with home dose of Eliquis 3. Drain removed - steady bleeding from drain site -- reinforce dressing as needed with compression/ABDs/ANDRA wrap. Discuss with IM holding eliquis. If continues to drain will apply Incisional wound VAC over site 4. 2 doses IV abx, home on doxycycline due to DM2, BMI 37 5. IM for medical management 6. PT for gait training 7. Dispo: will need d/c to rehab
[2023-07-24] MEDS ORDERED: NON FORMULARY DRUG (Semaglutide [Ozempic] 0.25 MG/0.2 ML Each) SQ SCH (09:00)
[2023-07-24] MEDS ORDERED: AZO PO SCH (09:00)
[2023-07-24 09:26] LABS: Basophils # (A) 0.01 X 10*3/uL (0.00-0.10); Basophils % (A) 0.1 %; Eosinophils # (A) 0 X 10*3/uL (0.04-0.35); Eosinophils % (A) 0 %; HCT 38.3 % (37.2-46.3); HGB 11.7 g/dL (12.0-15.0); Lymphocytes # (A) 0.51 X 10*3/uL (0.90-5.00); Lymphocytes % (A) 4.1 %; MCH 28.3 pg (27.0-32.0); MCHC 30.5 g/dL (32.0-37.0); MCV 92.7 FL (80.0-97.0); Mean Platelet Volume 11.9 FL (9.5-12.2); Monocytes # (A) 0.76 X 10*3/uL (0.20-1.00); Monocytes % (A) 6.1 %; NRBC Per 100 WBC 0 X 10*3/uL (0.00-0.01); Neutrophils # (A) 11.07 X 10*3/uL (1.80-7.70); Neutrophils % (A) 89.2 %; Platelet Count 158 X 10*3/uL (140-440); RBC 4.13 X 10*6/uL (4.10-5.20); RDW 15.2 % (11.5-14.5); WBC 12.41 X 10*3/uL (4.50-10.00)
[2023-07-24] MEDS: NON FORMULARY DRUG (Vitamin B Complex [Vitamin B Complex] 1 EACH Capsule) PO SCH (09:51)
[2023-07-24] MEDS: allopurinoL 100 MG TAB PO SCH (09:51)
[2023-07-24] MEDS: PREGABALIN 75 MG CAP PO SCH ×2 (09:51→20:57)
[2023-07-24] MEDS: MULTIVITAMINS, THERA 1 EACH TAB PO SCH (09:52)
[2023-07-24] MEDS: DAPAGLIFLOZIN PROPANEDIOL 10 MG TABLET PO SCH (09:52)
[2023-07-24] MEDS: EZETIMIBE 10 MG TAB PO SCH (09:52)
[2023-07-24] MEDS: CHOLECALCIFEROL 25 MCG (1000 IU) TABLET PO SCH (09:52)
[2023-07-24 12:06] LABS: Glucose,Whole Blood 181 mg/dL (70-110)
[2023-07-24] MEDS: LACTATED RINGERS 1,000 ML IV SCH (12:33)
--- NOTE | 2023-07-24 13:06 | P.CONS ---
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 Patient has been brought into the hospital under the care of Dr. Joiner status post right total knee arthroplasty performed yesterday. Patient has had some oozing of blood around the Hemovac which was removed this morning and patient continues to have losing from the site occasional blood clot. Dr. Joiner will be rechecking her. Patient denies having any dizziness, no chest pain. She states she is starting to have some heartburn. No nausea. Hemoglobin is 11.7. She states her pain is a #5 out of 10. Her daughter Sophia is at the bedside. Patient has been afebrile, heart rate 85, blood pressure 131/56, pulse ox 92% on room air. Repeat blood work ordered for the morning. Eliquis is on hold. REVIEW OF SYSTEMS Constitutional: No fever, no chills, no night sweats. No weight change. No weakness, fatigue or lethargy. No daytime sleepiness. HEENT: No headache. No blurred vision or double vision, no loss of vision. Chronic loss of Hearing, no ringing in the ears, no dizziness. No nasal drainage or congestion. No epistaxis. No sore throat. Lungs: No shortness of breath, cough, no sputum production. No wheezing. Cardiovascular: No chest pain, no lower extremity edema. No palpitations. No paroxysmal nocturnal dyspnea. No orthopnea. No lightheadedness or dizziness. No syncopal episodes. Abdominal: No abdominal pain. No nausea, vomiting. No diarrhea. No constipation. No bloody or tarry stools. No loss of appetite. Genitourinary: Denies dysuria, denies frequency, urgency. No urinary retention. Musculoskeletal: No myalgias. Noted muscle weakness, noted gait dysfunction, fall at home. No back pain. No neck pain. Right knee discomfort Integumentary: Right knee wounds. No rash or pruritus. No unusual bruising. No change in hair or nails. Neurologic: Noted aphasia. No facial droop. Noted change in mentation. No head injury. No headache. No paralysis. No paresthesia. Psychiatric: No depression. No anxiety. No mood swings. Endocrine: No abnormal blood sugars. No weight change. No excessive sweating or thirst. No cold intolerance. 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 SURGICAL HISTORY Cataract surgery left 20/20 Tonsillectomy and adenoidectomy Laminectomy with fusion of L1-S1 Lumbar discitis post-hardware removal SI joint fusion 2 Spinal cord stimulator Seroma on the back post-wound VAC line colonoscopy with polyps 2018. SOCIAL HISTORY Patient is a lifelong nonsmoker, no alcohol abuse, no illicit drug use. FAMILY HISTORY Father at age 80. Mother at the age of 86 from myocardial infarction had history of hypertension, hyperlipidemia. Patient has one brother with no major medical problems and one sister with no major medical problems. Patient has 3 daughters with no major medical problems. PHYSICAL EXAMINATION Gen: This is an 83-year-old obese female. She is resting in recliner and appears to be comfortable and in no acute distress. HEENT: Head is atraumatic, normocephalic. Pupils equal, round. Sclerae is anicteric. NECK: Supple. No JVD. No lymphadenopathy. No thyromegaly. LUNGS: Clear to auscultation. No wheezes or rhonchi. No intercostal retractions. HEART: First heart sound is depressed, second heart sound is normal, 2/6 systolic ejection murmur at the left sternal border. ABDOMEN: Soft, mild tenderness to the epigastric area, no rebound or guarding positive bowel sounds EXTREMITIES: No pedal edema. No calf tenderness, DP+[address] to the right knee. Sanguinous drainage from the Hemovac site. NEUROLOGICAL: Patient is awake, alert and oriented to person and place, CN II- XII are grossly intact muscle power 4/5 in bilateral upper and lower extremities. ASSESSMENT AND PLAN 1. Osteoarthritis status post right total knee arthroplasty. Continue current pain management, continue PT and OT per orthopedics. Incentive spirometry to reduce incidence of atelectasis and hospital-acquired pneumonia. Eliquis is placed on hold due to bleeding from the Hemovac site. 2. Paroxysmal Atrial fibrillation. Hold eliquis 5 mg po bid for today. Continue verapamil 120 mg daily. 3. Hypertension and hypertensive cardiovascular disease. Continue patient on hydrochlorothiazide 25 mg daily, losartan 100 mg daily, and verapamil 120 mg daily. 5. Hyperlipidemia. we will continue Zetia 10 mg po daily 6. Diabetes mellitus type 2. Continue patient on add NovoLog scale before meals and at bedtime, we will continue with Farxiga 10 mg po daily. Oxempic is on hold for surgery and will be resumed post op. 7. Diabetic polyneuropathy. Continue Duloxetin 60 mg po daily 8. 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 Continue baclofen 10 mg 3 times daily as needed. 9. Idiopathic gout. Continue allopurinol 100 mg daily. 10. Obstructive sleep apnea. Continue CPAP. 11. GI prophylaxis and gastroesophageal reflux disease. Start Protonix 40 mg po daily 12. DVT prophylaxis. Hold Apixaban 5 mg po bid. 14. Diabetic polyneuropathy. Continue pregabalin 150 mg orally twice every day. Impression and plan of care have been directed as dictated by the signing physician. Yokasta Haider nurse practitioner acting as scribe for signing physician. Past Medical History Past Medical History: Atrial Fibrillation, CVA/TIA, Diabetes Mellitus, Fibromyalgia, GERD/Reflux, Hypertension, Osteoarthritis (OA), Pneumonia Additional Past Medical History / Comment(s): recurrent UTIs, respiratory failure, new onset A-fib, gout History of Any Multi-Drug Resistant Organisms: None Reported Past Surgical History: Back Surgery, Hysterectomy Additional Past Surgical History / Comment(s): 5 back surgeries since 2014, dani. cataract removal Past Anesthesia/Blood Transfusion Reactions: No Reported Reaction Past Psychological History: No Psychological Hx Reported Smoking Status: Never smoker Past Alcohol Use History: None Reported Past Drug Use History: None Reported - Past Family History Mother Family Medical History: CVA/TIA, Hyperlipidemia, Hypertension, Myocardial Infarction (ND) Medications and Allergies Home Medications Medication Instructions Recorded Confirmed Type Baclofen [Lioresal] 10 mg PO TID PRN 09/21/20 07/23/23 History allopurinoL [Zyloprim] 100 mg PO DAILY 09/21/20 07/23/23 History Cholecalciferol [Vitamin D3 (25 25 mcg PO DAILY 11/04/22 07/23/23 History Mcg = 1000 Iu)] Losartan Potassium [Cozaar] 100 mg PO DAILY 11/04/22 07/23/23 History Vitamin B Complex 1 cap PO DAILY 11/04/22 07/23/23 History Apixaban [Eliquis] 5 mg PO BID #60 tab 11/13/22 07/23/23 Rx DULoxetine HCL [Cymbalta] 60 mg PO HS 01/03/23 07/23/23 History Multivit-Min/Iron/Folic/Lutein 1 tab PO DAILY 01/03/23 07/23/23 History [Centrum Silver Women Tablet] Pregabalin [Lyrica] 150 mg PO BID #6 cap 01/08/23 07/23/23 Rx Semaglutide [Ozempic] 0.5 mg SQ DIRECTED 02/20/23 07/23/23 History hydroCHLOROthiazide [Hydrodiuril] 25 mg PO DAILY 02/20/23 07/23/23 History Acetaminophen [Tylenol Extra 1,000 mg PO BID 07/17/23 07/23/23 History Strength] Dapagliflozin Propanediol [Farxiga] 10 mg PO DAILY 07/17/23 07/23/23 History Ezetimibe [Zetia] 10 mg PO DAILY 07/17/23 07/23/23 History Furosemide [Lasix] 20 mg PO DAILY PRN 07/17/23 07/23/23 History HYDROcodone/APAP 10-325MG [[place] 1 tab PO TID 07/17/23 07/23/23 History 10-325] Naproxen [Naprosyn] 500 mg PO DAILY 07/17/23 07/23/23 History Nf-Azo 4 cap PO DAILY 07/17/23 07/23/23 History Potassium Chloride ER [K-Dur 20] 10 meq PO DAILY PRN 07/17/23 07/23/23 History Verapamil HCl [Verapamil ER] 120 mg PO DAILY 07/17/23 07/23/23 History Allergies Allergy/AdvReac Type Severity Reaction Status Date / Time cephalexin [From Keflex] Allergy Rash/Hives Verified 07/23/23 12:10 clindamycin Allergy Rash/Hives Verified 07/23/23 12:10 Penicillins Allergy Unknown Verified 12/13/23 12:10 oxybutynin [From Ditropan] AdvReac Hallucinati Verified 07/23/23 12:10 ons Physical Exam Vitals: Vital Signs Temp Pulse Pulse Pulse Resp BP Pulse Ox 07/24/23 07:25 81 18 07/24/23 06:46 97.3 F L 85 18 131/56 92 L 07/24/23 01:33 98 F 81 20 104/68 91 L 07/23/23 23:10 78 117/67 07/23/23 22:55 80 114/68 07/23/23 22:40 79 109/59 07/23/23 22:25 74 115/75 94 L 07/23/23 22:10 72 16 101/65 94 L 07/23/23 21:55 70 100/61 07/23/23 21:40 68 92/57 07/23/23 21:10 68 83/50 07/23/23 20:55 67 82/48 07/23/23 20:40 69 86/53 07/23/23 20:25 71 93/57 96 07/23/23 20:10 71 88/54 90 L 07/23/23 19:55 72 119/51 93 L 07/23/23 19:44 73 92/48 94 L 07/23/23 19:40 76 95/56 96 07/23/23 19:00 68 16 106/52 95 07/23/23 18:45 70 16 96/54 95 07/23/23 18:30 71 16 93/52 95 07/23/23 18:15 70 16 94/55 95 07/23/23 18:00 68 16 94/53 94 L 07/23/23 17:45 69 14 91/47 93 L 07/23/23 17:15 72 16 102/55 94 L 07/23/23 17:00 66 14 92/55 93 L 07/23/23 16:45 67 14 96/53 95 07/23/23 16:30 70 16 96/53 96 07/23/23 16:15 68 16 95/50 96 07/23/23 16:00 68 16 98/54 98 07/23/23 15:53 68 16 95/51 07/23/23 15:38 97.3 F L 75 16 111/56 92 L 07/23/23 13:00 70 14 110/57 95 07/23/23 12:33 97.1 F L 75 16 135/73 95 Intake and Output 07/23/23 07/24/23 07/24/23 22:59 06:59 14:59 Intake Total 900 200 Output Total 200 80 80 Balance 700 -80 120 Intake: IV 900 Oral 200 Output: Drainage 80 80 Right Knee 80 80 Estimated Blood Loss 200 Other: Voiding Method Bedpan Bedpan Diaper Diaper # Voids 3 Weight 87.3 kg Results CBC & Chem 7: 07/24/23 06:07 Labs: Abnormal Lab Results - Last 24 Hours (Table) 07/23/23 07/23/23 07/24/23 Range/Units : 17:37 05:42 WBC (4.50-10.00) X 10*3/uL Hgb (12.0-15.0) g/dL MCHC (32.0-37.0) g/dL RDW (11.5-14.5) % Immature Gran # (0.00-0.04) X 10*3/uL Neutrophils # (1.80-7.70) X 10*3/uL Lymphocytes # (0.90-5.00) X 10*3/uL Eosinophils # (0.04-0.35) X 10*3/uL POC Glucose (mg/dL) 117 H 183 H 200 H (70-110) mg/dL 07/24/23 Range/Units 06:07 WBC 12.41 H (4.50-10.00) X 10*3/uL Hgb 11.7 L (12.0-15.0) g/dL MCHC 30.5 L (32.0-37.0) g/dL RDW 15.2 H (11.5-14.5) % Immature Gran # 0.06 H (0.00-0.04) X 10*3/uL Neutrophils # 11.07 H (1.80-7.70) X 10*3/uL Lymphocytes # 0.51 L (0.90-5.00) X 10*3/uL Eosinophils # 0 L (0.04-0.35) X 10*3/uL POC Glucose (mg/dL) (70-110) mg/dL
[2023-07-24] MEDS: PANTOPRAZOLE 40 MG TABLET PO SCH (15:27)
[2023-07-24 16:38] LABS: Glucose,Whole Blood 220 mg/dL (70-110)
[2023-07-24] MEDS: DULoxetine HCL 60 MG CAPSULE.DR PO SCH (20:57)
[2023-07-24] MEDS: BACLOFEN 10 MG TAB PO PRN (20:57)
[2023-07-24 21:05] LABS: Glucose,Whole Blood 141 mg/dL (70-110)
[2023-07-25] MEDS: SODIUM CHLORIDE 0.9% 1,000 ML IV SCH ×3 (01:14→16:40)
[2023-07-25] MEDS: HYDROcodone/APAP 10-325MG 1 EACH TAB PO PRN ×3 (01:22→13:18)
[2023-07-25 05:25] LABS: Glucose,Whole Blood 155 mg/dL (70-110)
[2023-07-25] MEDS: PANTOPRAZOLE 40 MG TABLET PO SCH (06:41)
[2023-07-25] MEDS: DAPAGLIFLOZIN PROPANEDIOL 10 MG TABLET PO SCH (08:36)
[2023-07-25] MEDS: EZETIMIBE 10 MG TAB PO SCH (08:36)
[2023-07-25] MEDS: allopurinoL 100 MG TAB PO SCH (08:36)
[2023-07-25] MEDS: MULTIVITAMINS, THERA 1 EACH TAB PO SCH (08:37)
[2023-07-25] MEDS: CHOLECALCIFEROL 25 MCG (1000 IU) TABLET PO SCH (08:37)
[2023-07-25] MEDS: PREGABALIN 75 MG CAP PO SCH ×3 (08:37→23:53)
[2023-07-25] MEDS: NON FORMULARY DRUG (Vitamin B Complex [Vitamin B Complex] 1 EACH Capsule) PO SCH (08:37)
[2023-07-25 09:09] LABS: Basophils # (A) 0.01 X 10*3/uL (0.00-0.10); Basophils % (A) 0.1 %; Eosinophils # (A) 0.01 X 10*3/uL (0.04-0.35); Eosinophils % (A) 0.1 %; HCT 27.2 % (37.2-46.3); HGB 8.6 g/dL (12.0-15.0); Lymphocytes # (A) 0.83 X 10*3/uL (0.90-5.00); Lymphocytes % (A) 8.8 %; MCH 29.4 pg (27.0-32.0); MCHC 31.6 g/dL (32.0-37.0); MCV 92.8 FL (80.0-97.0); Monocytes % (A) 13.7 %; NRBC Per 100 WBC 0 X 10*3/uL (0.00-0.01); Neutrophils # (A) 7.28 X 10*3/uL (1.80-7.70); Platelet Count 125 X 10*3/uL (140-440); RBC 2.93 X 10*6/uL (4.10-5.20); RDW 15.8 % (11.5-14.5); WBC 9.46 X 10*3/uL (4.50-10.00)
[2023-07-25 09:20] LABS: ALT 12 U/L (8-44); AST 26 U/L (13-35); Albumin/Globulin Ratio 1.88 Ratio (1.60-3.17); Alkaline Phosphatase 33 U/L (41-126); BUN/Creat Ratio 22.89 Ratio (12.00-20.00); Blood Urea Nitrogen 20.6 mg/dL (9.0-27.0); Calcium 7.9 mg/dL (8.7-10.3); Chloride 109 mmol/L (96-109); Globulin 1.6 g/dL (1.6-3.3); Glucose 148 mg/dL (70-110); Potassium 4.5 mmol/L (3.5-5.5); Sodium 141 mmol/L (135-145); Total Bilirubin 0.2 mg/dL (0.3-1.2); Total Protein 4.6 g/dL (6.2-8.2)
[2023-07-25 11:19] LABS: Glucose,Whole Blood 134 mg/dL (70-110)
--- NOTE | 2023-07-25 13:12 | P.PN ---
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 Patient has been brought into the hospital under the care of Dr. Joiner status post right total knee arthroplasty performed yesterday. Patient has had some oozing of blood around the Hemovac which was removed this morning and patient continues to have losing from the site occasional blood clot. Dr. Joiner will be rechecking her. Patient denies having any dizziness, no chest pain. She states she is starting to have some heartburn. No nausea. Hemoglobin is 11.7. She states her pain is a #5 out of 10. Her daughter Sophia is at the bedside. Patient has been afebrile, heart rate 85, blood pressure 131/56, pulse ox 92% on room air. Repeat blood work ordered for the morning. Eliquis is on hold. 07/25: Patient is seen in follow up. HR 57-85, BP 111/62, PO 94% on RA, afebrile. WBC 9.4, HGB 8.6, PLT 125. Creat 0.9. CBG 134-155. Discharge plan is on Friday. REVIEW OF SYSTEMS Constitutional: No fever, no chills, no night sweats. No weight change. No w eakness, fatigue or lethargy. No daytime sleepiness. HEENT: No headache. No blurred vision or double vision, no loss of vision. Chronic loss of Hearing, no ringing in the ears, no dizziness. No nasal drainage or congestion. No epistaxis. No sore throat. Lungs: No shortness of breath, cough, no sputum production. No wheezing. Cardiovascular: No chest pain, no lower extremity edema. No palpitations. No paroxysmal nocturnal dyspnea. No orthopnea. No lightheadedness or dizziness. No syncopal episodes. Abdominal: No abdominal pain. No nausea, vomiting. No diarrhea. No constipation. No bloody or tarry stools. No loss of appetite. Genitourinary: Denies dysuria, denies frequency, urgency. No urinary retention. Musculoskeletal: No myalgias. Noted muscle weakness, noted gait dysfunction, fall at home. No back pain. No neck pain. Right knee discomfort Integumentary: Right knee wounds. No rash or pruritus. No unusual bruising. No change in hair or nails. Neurologic: Noted aphasia. No facial droop. Noted change in mentation. No head injury. No headache. No paralysis. No paresthesia. Psychiatric: No depression. No anxiety. No mood swings. Endocrine: No abnormal blood sugars. No weight change. No excessive sweating or thirst. No cold intolerance. PHYSICAL EXAMINATION Gen: This is an 83-year-old obese female. She is resting in recliner and appears to be comfortable and in no acute distress. HEENT: Head is atraumatic, normocephalic. Pupils equal, round. Sclerae is anicteric. NECK: Supple. No JVD. No lymphadenopathy. No thyromegaly. LUNGS: Clear to auscultation. No wheezes or rhonchi. No intercostal retractions. HEART: First heart sound is depressed, second heart sound is normal, 2/6 systolic ejection murmur at the left sternal border. ABDOMEN: Soft, mild tenderness to the epigastric area, no rebound or guarding positive bowel sounds EXTREMITIES: No pedal edema. No calf tenderness, DP+[address] to the right knee. Sanguinous drainage from the Hemovac site. NEUROLOGICAL: Patient is awake, alert and oriented to person and place, CN II- XII are grossly intact muscle power 4/5 in bilateral upper and lower extremi ties. ASSESSMENT AND PLAN 1. Osteoarthritis status post right total knee arthroplasty, 07/23. Continue current pain management, continue PT and OT per orthopedics. Incentive spirometry to reduce incidence of atelectasis and hospital-acquired pneumonia. Eliquis is placed on hold due to bleeding from the Hemovac site. 2. Paroxysmal Atrial fibrillation. Hold eliquis 5 mg po bid for today. Continue verapamil 120 mg daily. 3. Hypertension and hypertensive cardiovascular disease. Continue patient on hydrochlorothiazide 25 mg daily, losartan 100 mg daily, and verapamil 120 mg daily. 5. Hyperlipidemia. we will continue Zetia 10 mg po daily 6. Diabetes mellitus type 2. Continue patient on add NovoLog scale before meals and at bedtime, we will continue with Farxiga 10 mg po daily. Oxempic is on hold for surgery and will be resumed post op. 7. Diabetic polyneuropathy. Continue Duloxetin 60 mg po daily 8. 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 Continue baclofen 10 mg 3 times daily as needed. 9. Idiopathic gout. Continue allopurinol 100 mg daily. 10. Obstructive sleep apnea. Continue CPAP. 11. GI prophylaxis and gastroesophageal reflux disease. Start Protonix 40 mg po daily 12. DVT prophylaxis. Hold Apixaban 5 mg po bid. 14. Diabetic polyneuropathy. Continue pregabalin 150 mg orally twice every day. Impression and plan of care have been directed as dictated by the signing physician. Yokasta Haider nurse practitioner acting as scribe for signing physician. Objective - Vital Signs Vital signs: Vital Signs Temp 98.4 F 07/25/23 08:00 Pulse 57 L 07/25/23 08:00 Resp 18 07/25/23 08:00 BP 111/62 07/25/23 08:00 Pulse Ox 94 L 07/25/23 08:00 FiO2 Intake & Output 07/24/23 07/25/23 07/25/23 18:59 06:59 18:59 Intake Total 1550 Output Total 80 Balance 1470 Intake: Intake, IV Titration 800 Amount Sodium Chloride 0.9% 1, 800 000 ml @ 75 mls/hr IV . [id number] [facility] Rx#:[id number] Oral 750 Output: Drainage 80 Right Knee 80 Other: Voiding Method Bedpan Bedside Commode Diaper # Voids 1 - Labs CBC & Chem 7: 07/25/23 05:59 07/25/23 05:59 Labs: Abnormal Lab Results - Last 24 Hours (Table) 07/24/23 07/24/23 07/25/23 Range/Units 16:28 21:03 05:24 RBC (4.10-5.20) X 10*6/uL Hgb (12.0-15.0) g/dL Hct (37.2-46.3) % MCHC (32.0-37.0) g/dL RDW (11.5-14.5) % Plt Count (140-440) X 10*3/uL Lymphocytes # (0.90-5.00) X 10*3/uL Monocytes # (0.20-1.00) X 10*3/uL Eosinophils # (0.04-0.35) X 10*3/uL BUN/Creatinine Ratio (12.00-20.00) Ratio Glucose (70-110) mg/dL POC Glucose (mg/dL) 220 H 141 H 155 H (70-110) mg/dL Calcium (8.7-10.3) mg/dL Total Bilirubin (0.3-1.2) mg/dL Alkaline Phosphatase (41-126) U/L Total Protein (6.2-8.2) g/dL Albumin (3.8-4.9) g/dL 07/25/23 07/25/23 07/25/23 Range/Units 05:59 05:59 11:17 RBC 2.93 L (4.10-5.20) X 10*6/uL Hgb 8.6 L (12.0-15.0) g/dL Hct 27.2 L (37.2-46.3) % MCHC 31.6 L (32.0-37.0) g/dL RDW 15.8 H (11.5-14.5) % Plt Count 125 L (140-440) X 10*3/uL Lymphocytes # 0.83 L (0.90-5.00) X 10*3/uL Monocytes # 1.30 H (0.20-1.00) X 10*3/uL Eosinophils # 0.01 L (0.04-0.35) X 10*3/uL BUN/Creatinine Ratio 22.89 H (12.00-20.00) Ratio Glucose 148 H (70-110) mg/dL POC Glucose (mg/dL) 134 H (70-110) mg/dL Calcium 7.9 L (8.7-10.3) mg/dL Total Bilirubin 0.2 L (0.3-1.2) mg/dL Alkaline Phosphatase 33 L (41-126) U/L Total Protein 4.6 L (6.2-8.2) g/dL Albumin 3.0 L (3.8-4.9) g/dL
[2023-07-25 16:11] LABS: Glucose,Whole Blood 142 mg/dL (70-110)
[2023-07-25] MEDS: LACTATED RINGERS 1,000 ML IV SCH (16:41)
[2023-07-25 20:17] LABS: Glucose,Whole Blood 167 mg/dL (70-110)
--- NOTE | 2023-07-25 20:53 | P.PN ---
Subjective Progress Note Date: 07/25/23 Patient seen earlier today. Complains of increased pain in her knee. Otherwise no complaints. Objective - Vital Signs Vital signs: Vital Signs Temp 98.4 F 07/25/23 14:00 Pulse 77 07/25/23 14:00 Resp 16 07/25/23 14:00 BP 110/64 07/25/23 14:00 Pulse Ox 94 L 07/25/23 14:00 FiO2 Intake & Output 07/25/23 07/25/23 07/26/23 06:59 18:59 06:59 Other: Voiding Method Bedside Commode Bedside Commode # Voids 1 # Bowel Movements 3 - Exam No apparent distress. Alert and can answer questions. Focused exam of the right LE was conducted. There are clean appearing dressings over the anterior knee and drain site. There is mild swelling. Able to actively PF and DF her ankle and toes. - Labs CBC & Chem 7: 07/25/23 05:59 07/25/23 05:59 Labs: Abnormal Lab Results - Last 24 Hours (Table) 07/24/23 07/25/23 07/25/23 Range/Units 21:03 05:24 05:59 RBC 2.93 L (4.10-5.20) X 10*6/uL Hgb 8.6 L (12.0-15.0) g/dL Hct 27.2 L (37.2-46.3) % MCHC 31.6 L (32.0-37.0) g/dL RDW 15.8 H (11.5-14.5) % Plt Count 125 L (140-440) X 10*3/uL Lymphocytes # 0.83 L (0.90-5.00) X 10*3/uL Monocytes # 1.30 H (0.20-1.00) X 10*3/uL Eosinophils # 0.01 L (0.04-0.35) X 10*3/uL BUN/Creatinine Ratio (12.00-20.00) Ratio Glucose (70-110) mg/dL POC Glucose (mg/dL) 141 H 155 H (70-110) mg/dL Calcium (8.7-10.3) mg/dL Total Bilirubin (0.3-1.2) mg/dL Alkaline Phosphatase (41-126) U/L Total Protein (6.2-8.2) g/dL Albumin (3.8-4.9) g/dL 07/25/23 07/25/23 07/25/23 Range/Units 05:59 11:17 16:10 RBC (4.10-5.20) X 10*6/uL Hgb (12.0-15.0) g/dL Hct (37.2-46.3) % MCHC (32.0-37.0) g/dL RDW (11.5-14.5) % Plt Count (140-440) X 10*3/uL Lymphocytes # (0.90-5.00) X 10*3/uL Monocytes # (0.20-1.00) X 10*3/uL Eosinophils # (0.04-0.35) X 10*3/uL BUN/Creatinine Ratio 22.89 H (12.00-20.00) Ratio Glucose 148 H (70-110) mg/dL POC Glucose (mg/dL) 134 H 142 H (70-110) mg/dL Calcium 7.9 L (8.7-10.3) mg/dL Total Bilirubin 0.2 L (0.3-1.2) mg/dL Alkaline Phosphatase 33 L (41-126) U/L Total Protein 4.6 L (6.2-8.2) g/dL Albumin 3.0 L (3.8-4.9) g/dL 07/25/23 Range/Units 20:16 RBC (4.10-5.20) X 10*6/uL Hgb (12.0-15.0) g/dL Hct (37.2-46.3) % MCHC (32.0-37.0) g/dL RDW (11.5-14.5) % Plt Count (140-440) X 10*3/uL Lymphocytes # (0.90-5.00) X 10*3/uL Monocytes # (0.20-1.00) X 10*3/uL Eosinophils # (0.04-0.35) X 10*3/uL BUN/Creatinine Ratio (12.00-20.00) Ratio Glucose (70-110) mg/dL POC Glucose (mg/dL) 167 H (70-110) mg/dL Calcium (8.7-10.3) mg/dL Total Bilirubin (0.3-1.2) mg/dL Alkaline Phosphatase (41-126) U/L Total Protein (6.2-8.2) g/dL Albumin (3.8-4.9) g/dL Assessment and Plan Assessment: POD #2 s/p right TKA Multiple medical problems Plan: Continue treatment as outlined yesterday. Appreciate IM assistance with perioperative medical management. Plan for discharge to [facility] on Friday.
[2023-07-25] MEDS: DULoxetine HCL 60 MG CAPSULE.DR PO SCH ×2 (21:59→23:53)
[2023-07-25] MEDS: SENNOSIDES-DOCUSATE SODIUM 1 EACH TAB PO SCH ×2 (22:00→23:54)
[2023-07-25 22:15] LABS: Glucose,Whole Blood 144 mg/dL (70-110)
[2023-07-25] MEDS ORDERED: ACETAMINOPHEN TAB 325 MG TAB PO PRN (23:10)
[2023-07-25] MEDS ORDERED: VANCOMYCIN IV PER PHARMACY 1 EACH MISC MISCELLANE PRN (23:22)
--- NOTE | 2023-07-25 23:29 | CT ---
EXAM: CT Head Without Intravenous Contrast CLINICAL HISTORY: ITS.REASON CT Reason: Neuro deficit, acute, stroke suspected TECHNIQUE: Axial computed tomography images of the head/brain without intravenous contrast. CTDI is 48.8 mGy and DLP is 1087.9 mGy-cm. This CT exam was performed using one or more of the following dose reduction techniques: automated exposure control, adjustment of the mA and/or kV according to patient size, and/or use of iterative reconstruction technique. COMPARISON: No relevant prior studies available. FINDINGS: Brain: Unremarkable. No hemorrhage. No significant white matter disease. No edema. Ventricles: Unremarkable. No ventriculomegaly. Bones/joints: Unremarkable. No acute fracture. Soft tissues: Unremarkable. Sinuses: Unremarkable as visualized. No acute sinusitis. Mastoid air cells: Unremarkable as visualized. No mastoid effusion. IMPRESSION: Normal head/brain CT.
[2023-07-25] MEDS ORDERED: VANCOMYCIN 1,500 MG in SODIUM CHLORIDE 0.9% 500 ML 500 ML IVPB ONE (23:30)
--- NOTE | 2023-07-25 23:30 | CT ---
EXAM: CT Angiography Head With Intravenous Contrast CLINICAL HISTORY: ITS.REASON CT Reason: Neuro deficit, acute, stroke suspected TECHNIQUE: Axial computed tomographic angiography images of the head with intravenous contrast. CTDI is 19.6 mGy and DLP is 281.1 mGy-cm. This CT exam was performed using one or more of the following dose reduction techniques: automated exposure control, adjustment of the mA and/or kV according to patient size, and/or use of iterative reconstruction technique. MIP reconstructed images were created and reviewed. COMPARISON: No relevant prior studies available. FINDINGS: Right internal carotid artery: No acute findings. Intracranial segment is patent with no significant stenosis. No aneurysm. Right anterior cerebral artery: Unremarkable. No occlusion or significant stenosis. No aneurysm. Right middle cerebral artery: Unremarkable. No occlusion or significant stenosis. No aneurysm. Right posterior cerebral artery: Unremarkable. No occlusion or significant stenosis. No aneurysm. Right vertebral artery: Unremarkable as visualized. Left internal carotid artery: No acute findings. Intracranial segment is patent with no significant stenosis. No aneurysm. Left anterior cerebral artery: Unremarkable. No occlusion or significant stenosis. No aneurysm. Left middle cerebral artery: Unremarkable. No occlusion or significant stenosis. No aneurysm. Left posterior cerebral artery: Unremarkable. No occlusion or significant stenosis. No aneurysm. Left vertebral artery: Unremarkable as visualized. Basilar artery: Unremarkable. No occlusion or significant stenosis. No aneurysm. IMPRESSION: Normal head CTA. EXAM: CT Angiography Neck With Intravenous Contrast CLINICAL HISTORY: ITS.REASON CT Reason: Neuro deficit, acute, stroke suspected TECHNIQUE: Routine carotid CT angiography protocol was performed with intravenous contrast. NASCET criteria using the distal ICAs for comparison were used for evaluation of stenoses. CTDI is 19.6 mGy and DLP is 281.1 mGy-cm. This CT exam was performed using one or more of the following dose reduction techniques: automated exposure control, adjustment of the mA and/or kV according to patient size, and/or use of iterative reconstruction technique. MIP reconstructed images were created and reviewed. COMPARISON: None. FINDINGS: VASCULATURE: Right common carotid artery: Unremarkable. No occlusion or significant stenosis. No dissection. Right internal carotid artery: Unremarkable. Extracranial segment is patent with no occlusion or significant stenosis. No dissection. Right external carotid artery: Unremarkable. No occlusion. Right vertebral artery: Unremarkable. No occlusion or significant stenosis. No dissection. Left common carotid artery: Unremarkable. No occlusion or significant stenosis. No dissection. Left internal carotid artery: Unremarkable. Extracranial segment is patent with no occlusion or significant stenosis. No dissection. Left external carotid artery: Unremarkable. No occlusion. Left vertebral artery: Unremarkable. No occlusion or significant stenosis. No dissection. NECK: Bones/joints: Unremarkable. No acute fracture. Soft tissues: Unremarkable. Lung apices: Clear. CAROTID STENOSIS REFERENCE USING NASCET CRITERIA: % ICA stenosis = (1 - narrowest ICA diameter/diameter of distal cervical ICA) x 100. Mild - <50% stenosis. Moderate - 50-69% stenosis. Severe - 70-94% stenosis. Near occlusion - 95-99% stenosis. Occluded - 100% stenosis. IMPRESSION: Negative CTA neck.
[2023-07-25] MEDS ORDERED: FUROSEMIDE 10 MG/ML 4 ML VIAL IV STA (23:34)
[2023-07-26] MEDS: AZTREONAM 1 GM in SODIUM CHLORIDE 0.9% 50 ML IVPB SCH ×3 (00:21→23:11)
--- NOTE | 2023-07-26 01:42 | XR ---
EXAM: XR Chest, 1 View CLINICAL HISTORY: ITS.REASON XR Reason: Decreased pulse ox TECHNIQUE: Frontal view of the chest. COMPARISON: No relevant prior studies available. FINDINGS: Lungs: Unremarkable. No consolidation. Pleural space: Unremarkable. No pneumothorax. Heart: Cardiomegaly. Mediastinum: Unremarkable. Normal mediastinal contour. Bones/joints: Unremarkable. No acute fracture. IMPRESSION: No acute findings in the chest.
[2023-07-26] MEDS: SODIUM CHLORIDE 0.9% 1,000 ML IV SCH (03:40)
[2023-07-26] MEDS: VANCOMYCIN 1,500 MG in SODIUM CHLORIDE 0.9% 500 ML 500 ML IVPB SCH (04:57)
[2023-07-26 06:13] LABS: Glucose,Whole Blood 154 mg/dL (70-110)
[2023-07-26] MEDS: PANTOPRAZOLE 40 MG TABLET PO SCH (06:40)
--- NOTE | 2023-07-26 08:29 | P.PN ---
Subjective According to the patient's nurse she had low-grade fevers, altered mental status, and tachycardia overnight. This was evaluated by internal medicine with a CT to rule out stroke which was negative. This morning the patient is doing better. She has pain in her knee but no other complaints. Objective - Vital Signs Vital signs: Vital Signs Temp 99.4 F 07/26/23 00:54 Pulse 101 H 07/26/23 00:54 Resp 18 07/26/23 00:54 BP 130/70 07/26/23 00:54 Pulse Ox 95 07/26/23 00:54 FiO2 Intake & Output 07/25/23 07/26/23 07/26/23 18:59 06:59 18:59 Output Total 1600 Balance -1600 Output: Urine 1600 Other: Voiding Method Bedside Commode Bedside Commode External Catheter # Bowel Movements 3 - Exam The patient is resting comfortably in her bed. She is alert and able to answer questions. A focused exam of the right lower extremity was conducted. On inspection is moderate swelling throughout the knee. There are intact dressings with no drainage or strikethrough over the anterior incision and drainage site. There is no erythema. Motor and sensory function are intact. - Labs CBC & Chem 7: 07/25/23 05:59 07/25/23 05:59 Labs: Abnormal Lab Results - Last 24 Hours (Table) 07/25/23 07/25/23 07/25/23 Range/Units 05:59 05:59 11:17 RBC 2.93 L (4.10-5.20) X 10*6/uL Hgb 8.6 L (12.0-15.0) g/dL Hct 27.2 L (37.2-46.3) % MCHC 31.6 L (32.0-37.0) g/dL RDW 15.8 H (11.5-14.5) % Plt Count 125 L (140-440) X 10*3/uL Lymphocytes # 0.83 L (0.90-5.00) X 10*3/uL Monocytes # 1.30 H (0.20-1.00) X 10*3/uL Eosinophils # 0.01 L (0.04-0.35) X 10*3/uL BUN/Creatinine Ratio 22.89 H (12.00-20.00) Ratio Glucose 148 H (70-110) mg/dL POC Glucose (mg/dL) 134 H (70-110) mg/dL Calcium 7.9 L (8.7-10.3) mg/dL Total Bilirubin 0.2 L (0.3-1.2) mg/dL Alkaline Phosphatase 33 L (41-126) U/L Total Protein 4.6 L (6.2-8.2) g/dL Albumin 3.0 L (3.8-4.9) g/dL 07/25/23 07/25/23 07/25/23 Range/Units 16:10 20:16 22:13 RBC (4.10-5.20) X 10*6/uL Hgb (12.0-15.0) g/dL Hct (37.2-46.3) % MCHC (32.0-37.0) g/dL RDW (11.5-14.5) % Plt Count (140-440) X 10*3/uL Lymphocytes # (0.90-5.00) X 10*3/uL Monocytes # (0.20-1.00) X 10*3/uL Eosinophils # (0.04-0.35) X 10*3/uL BUN/Creatinine Ratio (12.00-20.00) Ratio Glucose (70-110) mg/dL POC Glucose (mg/dL) 142 H 167 H 144 H (70-110) mg/dL Calcium (8.7-10.3) mg/dL Total Bilirubin (0.3-1.2) mg/dL Alkaline Phosphatase (41-126) U/L Total Protein (6.2-8.2) g/dL Albumin (3.8-4.9) g/dL 07/26/23 Range/Units 06:12 RBC (4.10-5.20) X 10*6/uL Hgb (12.0-15.0) g/dL Hct (37.2-46.3) % MCHC (32.0-37.0) g/dL RDW (11.5-14.5) % Plt Count (140-440) X 10*3/uL Lymphocytes # (0.90-5.00) X 10*3/uL Monocytes # (0.20-1.00) X 10*3/uL Eosinophils # (0.04-0.35) X 10*3/uL BUN/Creatinine Ratio (12.00-20.00) Ratio Glucose (70-110) mg/dL POC Glucose (mg/dL) 154 H (70-110) mg/dL Calcium (8.7-10.3) mg/dL Total Bilirubin (0.3-1.2) mg/dL Alkaline Phosphatase (41-126) U/L Total Protein (6.2-8.2) g/dL Albumin (3.8-4.9) g/dL Assessment and Plan Assessment: Postoperative day #3 status post right total knee replacement Plan: Continue treatment as outlined an prior progress notes. Events overnight noted. In regards to the patient's right knee I see no need for blood cultures and IV antibiotics. If this to rule out or treat infections elsewhere from her knee I will defer to internal medicine, but she does not need aztreonam or blood cultures for her knee. We'll continue to plan for discharge tomorrow would on Friday if she is medically stable.
[2023-07-26] MEDS: DOXYCYCLINE 100 MG CAP PO SCH ×2 (09:18→19:56)
[2023-07-26] MEDS: DAPAGLIFLOZIN PROPANEDIOL 10 MG TABLET PO SCH (09:19)
[2023-07-26] MEDS: MULTIVITAMINS, THERA 1 EACH TAB PO SCH (09:19)
[2023-07-26] MEDS: CHOLECALCIFEROL 25 MCG (1000 IU) TABLET PO SCH (09:19)
[2023-07-26] MEDS: HYDROcodone/APAP 10-325MG 1 EACH TAB PO PRN ×3 (09:19→23:15)
[2023-07-26] MEDS: EZETIMIBE 10 MG TAB PO SCH (09:19)
[2023-07-26] MEDS: NON FORMULARY DRUG (Vitamin B Complex [Vitamin B Complex] 1 EACH Capsule) PO SCH (09:19)
[2023-07-26] MEDS: allopurinoL 100 MG TAB PO SCH (09:19)
[2023-07-26] MEDS: PREGABALIN 75 MG CAP PO SCH ×2 (09:19→19:56)
[2023-07-26 09:22] LABS: Basophils # (A) 0.02 X 10*3/uL (0.00-0.10); Basophils % (A) 0.3 %; Eosinophils # (A) 0.11 X 10*3/uL (0.04-0.35); Eosinophils % (A) 1.4 %; HGB 8.2 g/dL (12.0-15.0); Lymphocytes # (A) 0.71 X 10*3/uL (0.90-5.00); Lymphocytes % (A) 9.2 %; MCH 28.6 pg (27.0-32.0); MCHC 30.4 g/dL (32.0-37.0); MCV 94.1 FL (80.0-97.0); Mean Platelet Volume 11.9 FL (9.5-12.2); Monocytes # (A) 1.09 X 10*3/uL (0.20-1.00); Monocytes % (A) 14.1 %; NRBC Per 100 WBC 0 X 10*3/uL (0.00-0.01); Neutrophils # (A) 5.79 X 10*3/uL (1.80-7.70); Neutrophils % (A) 74.6 %; Platelet Count 132 X 10*3/uL (140-440); RBC 2.87 X 10*6/uL (4.10-5.20); RDW 15.5 % (11.5-14.5); WBC 7.75 X 10*3/uL (4.50-10.00)
--- NOTE | 2023-07-26 10:40 | P.PN ---
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 Patient has been brought into the hospital under the care of Dr. Joiner status post right total knee arthroplasty performed yesterday. Patient has had some oozing of blood around the Hemovac which was removed this morning and patient continues to have losing from the site occasional blood clot. Dr. Joiner will be rechecking her. Patient denies having any dizziness, no chest pain. She states she is starting to have some heartburn. No nausea. Hemoglobin is 11.7. She states her pain is a #5 out of 10. Her daughter Sophia is at the bedside. Patient has been afebrile, heart rate 85, blood pressure 131/56, pulse ox 92% on room air. Repeat blood work ordered for the morning. Eliquis is on hold. 07/25: Patient is seen in follow up. HR 57-85, BP 111/62, PO 94% on RA, afebrile. WBC 9.4, HGB 8.6, PLT 125. Creat 0.9. CBG 134-155. Discharge plan is on Friday. 07/26: Patient is lying down in bed in no acute distress, she had episode yesterday where she became confused and the Nursing staff thought that she had a stroke so a code stroke was called and hadCT brain was negative followed by CTA of the head and neck, bpth negative, CXR was negative she had a temperature 101.2 was started on vanco and Azactam and sent urine cultures and blood cultures , we will continue to monitr very closely, she will likely going to [facility] on Friday REVIEW OF SYSTEMS Constitutional: No fever, no chills, no night sweats. No weight change. No weakness, fatigue or lethargy. No daytime sleepiness. HEENT: No headache. No blurred vision or double vision, no loss of vision. Chronic loss of Hearing, no ringing in the ears, no dizziness. No nasal drainage or congestion. No epistaxis. No sore throat. Lungs: No shortness of breath, cough, no sputum production. No wheezing. Cardiovascular: No chest pain, no lower extremity edema. No palpitations. No paroxysmal nocturnal dyspnea. No orthopnea. No lightheadedness or dizziness. No syncopal episodes. Abdominal: No abdominal pain. No nausea, vomiting. No diarrhea. No constipation. No bloody or tarry stools. No loss of appetite. Genitourinary: Denies dysuria, denies frequency, urgency. No urinary retention. Musculoskeletal: No myalgias. Noted muscle weakness, noted gait dysfunction, fall at home. No back pain. No neck pain. Right knee discomfort Integumentary: Right knee wounds. No rash or pruritus. No unusual bruising. No change in hair or nails. Neurologic: Noted aphasia. No facial droop. Noted change in mentation. No head injury. No headache. No paralysis. No paresthesia. Psychiatric: No depression. No anxiety. No mood swings. Endocrine: No abnormal blood sugars. No weight change. No excessive sweating or thirst. No cold intolerance. PHYSICAL EXAMINATION Gen: This is an 83-year-old obese female. She is resting in recliner and appears to be comfortable and in no acute distress. HEENT: Head is atraumatic, normocephalic. Pupils equal, round. Sclerae is anic teric. NECK: Supple. No JVD. No lymphadenopathy. No thyromegaly. LUNGS: Clear to auscultation. No wheezes or rhonchi. No intercostal retractions. HEART: First heart sound is depressed, second heart sound is normal, 2/6 systolic ejection murmur at the left sternal border. ABDOMEN: Soft, mild tenderness to the epigastric area, no rebound or guarding positive bowel sounds EXTREMITIES: No pedal edema. No calf tenderness, DP+[address] to the right knee. Sanguinous drainage from the Hemovac site. NEUROLOGICAL: Patient is awake, alert and oriented to person and place, CN II- XII are grossly intact muscle power 4/5 in bilateral upper and lower extremities. ASSESSMENT AND PLAN 1. POD# 3 post Right TKA . Continue current pain management, continue PT and OT per orthopedics. Incentive spirometry to reduce incidence of atelectasis and hospital-acquired pneumonia, we will restart Eliquis 5 mg po bid 2. Paroxysmal Atrial fibrillation. we will resume Eliquis 5 mg po bid. Continue verapamil 120 mg daily. 3. Hypertension and hypertensive cardiovascular disease. Continue patient on hydrochlorothiazide 25 mg daily, losartan 100 mg daily, and verapamil 120 mg daily. 5. Hyperlipidemia. we will continue Zetia 10 mg po daily 6. Diabetes mellitus type 2. Continue patient on add NovoLog scale before meals and at bedtime, we will continue with Farxiga 10 mg po daily. Oxempic is on hold for surgery and will be resumed post op. 7. Diabetic polyneuropathy. Continue Duloxetin 60 mg po daily 8. 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 Continue baclofen 10 mg 3 times daily as needed. 9. Idiopathic gout. Continue allopurinol 100 mg daily. 10. Obstructive sleep apnea. Continue CPAP. 11. GI prophylaxis and gastroesophageal reflux disease. Start Protonix 40 mg po daily 12. DVT prophylaxis. resume Eliquis 5 mg po bid 13. Metabolic encephalopathy likely due to pain medications without evidence of infection or stroke. we will continue with empiric IV ABX till the cultures are back 14. [facility] on Friday Objective - Vital Signs Vital signs: Vital Signs Temp 98.2 F 07/26/23 07:13 Pulse 74 07/26/23 07:13 Resp 16 07/26/23 07:13 BP 119/69 07/26/23 07:13 Pulse Ox 97 07/26/23 07:13 FiO2 Intake & Output 07/25/23 07/26/23 07/26/23 18:59 06:59 18:59 Output Total 1600 Balance -1600 Output: Urine 1600 Other: Voiding Method Bedside Commode Bedside Commode External Catheter # Bowel Movements 3 - Labs CBC & Chem 7: 07/26/23 06:01 07/25/23 05:59 Labs: Abnormal Lab Results - Last 24 Hours (Table) 07/25/23 07/25/23 07/25/23 Range/Units 11:17 16:10 20:16 RBC (4.10-5.20) X 10*6/uL Hgb (12.0-15.0) g/dL Hct (37.2-46.3) % MCHC (32.0-37.0) g/dL RDW (11.5-14.5) % Plt Count (140-440) X 10*3/uL Lymphocytes # (0.90-5.00) X 10*3/uL Monocytes # (0.20-1.00) X 10*3/uL POC Glucose (mg/dL) 134 H 142 H 167 H (70-110) mg/dL 07/25/23 07/26/23 07/26/23 Range/Units 22:13 06:01 06:12 RBC 2.87 L (4.10-5.20) X 10*6/uL Hgb 8.2 L (12.0-15.0) g/dL Hct 27.0 L (37.2-46.3) % MCHC 30.4 L (32.0-37.0) g/dL RDW 15.5 H (11.5-14.5) % Plt Count 132 L (140-440) X 10*3/uL Lymphocytes # 0.71 L (0.90-5.00) X 10*3/uL Monocytes # 1.09 H (0.20-1.00) X 10*3/uL POC Glucose (mg/dL) 144 H 154 H (70-110) mg/dL
[2023-07-26 11:34] LABS: Glucose,Whole Blood 178 mg/dL (70-110)
[2023-07-26] MEDS: LACTATED RINGERS 1,000 ML IV SCH (16:29)
[2023-07-26 16:37] LABS: Glucose,Whole Blood 168 mg/dL (70-110)
[2023-07-26] MEDS: SENNOSIDES-DOCUSATE SODIUM 1 EACH TAB PO SCH (19:56)
[2023-07-26] MEDS: DULoxetine HCL 60 MG CAPSULE.DR PO SCH (19:56)
[2023-07-26] MEDS: APIXABAN 5 MG TAB PO SCH (19:56)
[2023-07-26] MEDS: diazePAM 5 MG TAB PO PRN (20:29)
[2023-07-26 20:54] LABS: Glucose,Whole Blood 150 mg/dL (70-110)
[2023-07-27] MEDS: VANCOMYCIN 1,500 MG in SODIUM CHLORIDE 0.9% 500 ML 500 ML IVPB SCH (03:51)
[2023-07-27 05:03] LABS: Glucose,Whole Blood 127 mg/dL (70-110)
[2023-07-27] MEDS: HYDROcodone/APAP 10-325MG 1 EACH TAB PO PRN ×3 (05:58→20:14)
[2023-07-27] MEDS: PANTOPRAZOLE 40 MG TABLET PO SCH (05:59)
[2023-07-27] MEDS: AZTREONAM 1 GM in SODIUM CHLORIDE 0.9% 50 ML IVPB SCH (08:07)
[2023-07-27] MEDS: DOXYCYCLINE 100 MG CAP PO SCH ×2 (08:08→22:48)
[2023-07-27] MEDS: SENNOSIDES-DOCUSATE SODIUM 1 EACH TAB PO SCH ×2 (08:08→20:13)
[2023-07-27] MEDS: EZETIMIBE 10 MG TAB PO SCH (08:08)
[2023-07-27] MEDS: PREGABALIN 75 MG CAP PO SCH ×2 (08:08→20:19)
[2023-07-27] MEDS: allopurinoL 100 MG TAB PO SCH (08:08)
[2023-07-27] MEDS: APIXABAN 5 MG TAB PO SCH ×2 (08:08→20:14)
[2023-07-27] MEDS: DAPAGLIFLOZIN PROPANEDIOL 10 MG TABLET PO SCH (08:09)
[2023-07-27] MEDS: CHOLECALCIFEROL 25 MCG (1000 IU) TABLET PO SCH (08:09)
[2023-07-27] MEDS: MULTIVITAMINS, THERA 1 EACH TAB PO SCH (08:09)
[2023-07-27] MEDS: NON FORMULARY DRUG (Vitamin B Complex [Vitamin B Complex] 1 EACH Capsule) PO SCH (08:09)
--- NOTE | 2023-07-27 08:18 | P.PN ---
Subjective Progress Note Date: 07/27/23 Patient is doing better this morning. The pain in her right knee is improving. She is been up several times walking to the bathroom in the [place]. She has no other complaints. Objective - Vital Signs Vital signs: Vital Signs Temp 98.8 F 07/27/23 07:09 Pulse 92 07/27/23 07:09 Resp 17 07/27/23 07:09 BP 116/73 07/27/23 07:09 Pulse Ox 94 L 07/27/23 07:09 FiO2 Intake & Output 07/26/23 07/27/23 07/27/23 18:59 06:59 18:59 Output Total 200 Balance -200 Output: Urine 200 Other: Voiding Method Bedside Commode Bedside Commode External Catheter External Catheter # Voids 3 2 # Bowel Movements 1 - Exam The patient is sitting up comfortably in a chair. A focused exam of the right lower chin was conducted. Her surgical dressings are in place. There is moderate swelling throughout the leg. There is mild hyperemia and slight warmth to touch but no leyla erythema or sign of infection. Her thigh and calf are soft. She is able to actively plantarflex and dorsiflex her ankle and her toes. - Labs CBC & Chem 7: 07/26/23 06:01 07/25/23 05:59 Labs: Abnormal Lab Results - Last 24 Hours (Table) 07/26/23 07/26/23 07/26/23 Range/Units 06:01 11:32 16:36 RBC 2.87 L (4.10-5.20) X 10*6/uL Hgb 8.2 L (12.0-15.0) g/dL Hct 27.0 L (37.2-46.3) % MCHC 30.4 L (32.0-37.0) g/dL RDW 15.5 H (11.5-14.5) % Plt Count 132 L (140-440) X 10*3/uL Lymphocytes # 0.71 L (0.90-5.00) X 10*3/uL Monocytes # 1.09 H (0.20-1.00) X 10*3/uL POC Glucose (mg/dL) 178 H 168 H (70-110) mg/dL 07/26/23 07/27/23 Range/Units 20:44 05:01 RBC (4.10-5.20) X 10*6/uL Hgb (12.0-15.0) g/dL Hct (37.2-46.3) % MCHC (32.0-37.0) g/dL RDW (11.5-14.5) % Plt Count (140-440) X 10*3/uL Lymphocytes # (0.90-5.00) X 10*3/uL Monocytes # (0.20-1.00) X 10*3/uL POC Glucose (mg/dL) 150 H 127 H (70-110) mg/dL Assessment and Plan Assessment: Postoperative day #4 status post right total knee arthroplasty Multiple medical problems Plan: Continue treatment as outlined previously. We'll plan for discharge to [facility] tomorrow if medically cleared.
--- NOTE | 2023-07-27 11:11 | P.PN ---
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 Patient has been brought into the hospital under the care of Dr. Joiner status post right total knee arthroplasty performed yesterday. Patient has had some oozing of blood around the Hemovac which was removed this morning and patient continues to have losing from the site occasional blood clot. Dr. Joiner will be rechecking her. Patient denies having any dizziness, no chest pain. She states she is starting to have some heartburn. No nausea. Hemoglobin is 11.7. She states her pain is a #5 out of 10. Her daughter Sophia is at the bedside. Patient has been afebrile, heart rate 85, blood pressure 131/56, pulse ox 92% on room air. Repeat blood work ordered for the morning. Eliquis is on hold. 07/25: Patient is seen in follow up. HR 57-85, BP 111/62, PO 94% on RA, afebrile. WBC 9.4, HGB 8.6, PLT 125. Creat 0.9. CBG 134-155. Discharge plan is [place] on Friday. 07/26: Patient is lying down in bed in no acute distress, she had episode yesterday where she became confused and the Nursing staff thought that she had a stroke so a code stroke was called and hadCT brain was negative followed by CTA of the head and neck, bpth negative, CXR was negative she had a temperature 101.2 was started on vanco and Azactam and sent urine cultures and blood cultures , we will continue to monitr very closely, she will likely going to [place] on Friday 07/27: Patient is sitting up in chair in no distress, was started on Eliquis yesterday and we will continue with currnt treatment plan hopefully [place] in AM, no available cutures in the computers we will discuss with nursing staff if that even was collected before the ABX were started REVIEW OF SYSTEMS Constitutional: No fever, no chills, no night sweats. No weight change. No weakness, fatigue or lethargy. No daytime sleepiness. HEENT: No headache. No blurred vision or double vision, no loss of vision. Chronic loss of Hearing, no ringing in the ears, no dizziness. No nasal drainage or congestion. No epistaxis. No sore throat. Lungs: No shortness of breath, cough, no sputum production. No wheezing. Cardiovascular: No chest pain, no lower extremity edema. No palpitations. No paroxysmal nocturnal dyspnea. No orthopnea. No lightheadedness or dizziness. No syncopal episodes. Abdominal: No abdominal pain. No nausea, vomiting. No diarrhea. No constipation. No bloody or tarry stools. No loss of appetite. Genitourinary: Denies dysuria, denies frequency, urgency. No urinary retention. Musculoskeletal: No myalgias. Noted muscle weakness, noted gait dysfunction, fall at home. No back pain. No neck pain. Right knee discomfort Integumentary: Right knee wounds. No rash or pruritus. No unusual bruising. No change in hair or nails. Neurologic: Noted aphasia. No facial droop. Noted change in mentation. No head injury. No headache. No paralysis. No paresthesia. Psychiatric: No depression. No anxiety. No mood swings. Endocrine: No abnormal blood sugars. No weight change. No excessive sweating or thirst. No cold intolerance. PHYSICAL EXAMINATION Gen: This is an 83-year-old obese female. She is resting in recliner and appears to be comfortable and in no acute distress. HEENT: Head is atraumatic, normocephalic. Pupils equal, round. Sclerae is anicteric. NECK: Supple. No JVD. No lymphadenopathy. No thyromegaly. LUNGS: Clear to auscultation. No wheezes or rhonchi. No intercostal retractions. HEART: First heart sound is depressed, second heart sound is normal, 2/6 systolic ejection murmur at the left sternal border. ABDOMEN: Soft, mild tenderness to the epigastric area, no rebound or guarding positive bowel sounds EXTREMITIES: No pedal edema. No calf tenderness, DP+[address] to the right knee. Sanguinous drainage from the Hemovac site. NEUROLOGICAL: Patient is awake, alert and oriented to person and place, CN II- XII are grossly intact muscle power 4/5 in bilateral upper and lower extremities. ASSESSMENT AND PLAN 1. POD# 4 post Right TKA . Continue current pain management, continue PT and OT per orthopedics. Incentive spirometry to reduce incidence of atelectasis and hospital-acquired pneumonia, we will continue Eliquis 5 mg po bid 2. Paroxysmal Atrial fibrillation. we will resume Eliquis 5 mg po bid. C ontinue verapamil 120 mg daily. 3. Hypertension and hypertensive cardiovascular disease. Continue patient on hydrochlorothiazide 25 mg daily, losartan 100 mg daily, and verapamil 120 mg daily. 5. Hyperlipidemia. we will continue Zetia 10 mg po daily 6. Diabetes mellitus type 2. Continue patient on add NovoLog scale before meals and at bedtime, we will continue with Farxiga 10 mg po daily. Oxempic is on hold for surgery and will be resumed post op. 7. Diabetic polyneuropathy. Continue Duloxetin 60 mg po daily 8. 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 Continue baclofen 10 mg 3 times daily as needed. 9. Idiopathic gout. Continue allopurinol 100 mg daily. 10. Obstructive sleep apnea. Continue CPAP. 11. GI prophylaxis and gastroesophageal reflux disease. Start Protonix 40 mg po daily 12. DVT prophylaxis. resume Eliquis 5 mg po bid 13. Metabolic encephalopathy likely due to pain medications without evidence of infection or stroke. we will continue with empiric IV ABX till the cultures are back 14. [place] on Friday Objective - Vital Signs Vital signs: Vital Signs Temp 98.8 F 07/27/23 07:09 Pulse 92 07/27/23 07:09 Resp 17 07/27/23 07:09 BP 116/73 07/27/23 07:09 Pulse Ox 94 L 07/27/23 07:09 FiO2 Intake & Output 07/26/23 07/27/23 07/27/23 18:59 06:59 18:59 Output Total 200 Balance -200 Output: Urine 200 Other: Voiding Method Bedside Commode Bedside Commode External Catheter External Catheter # Voids 3 2 # Bowel Movements 1 - Labs CBC & Chem 7: 07/26/23 06:01 07/25/23 05:59 Labs: Abnormal Lab Results - Last 24 Hours (Table) 07/26/23 07/26/23 07/26/23 Range/Units 11:32 16:36 20:44 POC Glucose (mg/dL) 178 H 168 H 150 H (70-110) mg/dL 07/27/23 Range/Units 05:01 POC Glucose (mg/dL) 127 H (70-110) mg/dL
[2023-07-27 11:47] LABS: Basophils # (A) 0.02 X 10*3/uL (0.00-0.10); Basophils % (A) 0.3 %; Eosinophils # (A) 0.29 X 10*3/uL (0.04-0.35); HCT 27.9 % (37.2-46.3); HGB 8.6 g/dL (12.0-15.0); Lymphocytes # (A) 0.73 X 10*3/uL (0.90-5.00); MCH 28.6 pg (27.0-32.0); MCHC 30.8 g/dL (32.0-37.0); MCV 92.7 FL (80.0-97.0); Mean Platelet Volume 11.9 FL (9.5-12.2); Monocytes # (A) 0.85 X 10*3/uL (0.20-1.00); Monocytes % (A) 11.7 %; NRBC Per 100 WBC 0 X 10*3/uL (0.00-0.01); Neutrophils # (A) 5.37 X 10*3/uL (1.80-7.70); Neutrophils % (A) 73.6 %; Platelet Count 153 X 10*3/uL (140-440); RBC 3.01 X 10*6/uL (4.10-5.20); RDW 15.3 % (11.5-14.5); WBC 7.29 X 10*3/uL (4.50-10.00)
[2023-07-27 12:00] LABS: Glucose,Whole Blood 118 mg/dL (70-110)
[2023-07-27 13:11] LABS: ALT 11 U/L (8-44); AST 15 U/L (13-35); Albumin/Globulin Ratio 1.67 Ratio (1.60-3.17); Alkaline Phosphatase 43 U/L (41-126); BUN/Creat Ratio 17.57 Ratio (12.00-20.00); Blood Urea Nitrogen 12.3 mg/dL (9.0-27.0); Carbon Dioxide 27.4 mmol/L (21.6-31.8); Chloride 102 mmol/L (96-109); Globulin 1.8 g/dL (1.6-3.3); Glucose 125 mg/dL (70-110); Potassium 3.5 mmol/L (3.5-5.5); Sodium 139 mmol/L (135-145); Total Bilirubin 0.3 mg/dL (0.3-1.2); Total Protein 4.8 g/dL (6.2-8.2)
[2023-07-27] MEDS: LACTATED RINGERS 1,000 ML IV SCH (15:18)
[2023-07-27 15:27] LABS: Appearance,Urine Clear (Clear); Bilirubin,Urine Negative (Negative); Blood,Urine Moderate (Negative); Color,Urine Yellow; Glucose,Urine (UA) 4+ (Negative); Ketones,Urine Negative (Negative); Leukocyte Esterase,Urine Negative (Negative); Nitrite,Urine Negative (Negative); Protein,Urine Trace (Negative); RBC,Urine 73 /hpf (0-5); Specific Gravity,Urine 1.022 (1.001-1.035); Squamous Epithelial Cell,Urine <1 /hpf (0-4); Urobilinogen,Urine <2.0 mg/dL (<2.0); WBC,Urine 7 /hpf (0-5)
[2023-07-27 16:38] LABS: Glucose,Whole Blood 149 mg/dL (70-110)
[2023-07-27 19:18] LABS: Glucose,Whole Blood 128 mg/dL (70-110)
[2023-07-27] MEDS: DULoxetine HCL 60 MG CAPSULE.DR PO SCH (20:13)
[2023-07-27] MEDS: diazePAM 5 MG TAB PO PRN (23:14)
[2023-07-28 05:35] LABS: Glucose,Whole Blood 137 mg/dL (70-110)
[2023-07-28] MEDS: PANTOPRAZOLE 40 MG TABLET PO SCH (06:33)
[2023-07-28] MEDS: APIXABAN 5 MG TAB PO SCH ×2 (07:34→20:59)
[2023-07-28] MEDS: DAPAGLIFLOZIN PROPANEDIOL 10 MG TABLET PO SCH (07:34)
[2023-07-28] MEDS: DOXYCYCLINE 100 MG CAP PO SCH ×2 (07:34→20:59)
[2023-07-28] MEDS: allopurinoL 100 MG TAB PO SCH (07:34)
[2023-07-28] MEDS: HYDROcodone/APAP 10-325MG 1 EACH TAB PO PRN ×3 (07:34→22:00)
[2023-07-28] MEDS: SENNOSIDES-DOCUSATE SODIUM 1 EACH TAB PO SCH ×2 (07:35→21:05)
[2023-07-28] MEDS: EZETIMIBE 10 MG TAB PO SCH (07:35)
[2023-07-28] MEDS: CHOLECALCIFEROL 25 MCG (1000 IU) TABLET PO SCH (07:35)
[2023-07-28] MEDS: PREGABALIN 75 MG CAP PO SCH ×2 (07:35→20:59)
[2023-07-28] MEDS: MULTIVITAMINS, THERA 1 EACH TAB PO SCH (07:35)
--- NOTE | 2023-07-28 07:45 | P.DS ---
Providers Date of admission: 07/23/23 15:46 Attending physician: Jordan Joiner Consults: 07/23/23 15:46 Consult Physician Routine Consulting Provider: Olya Austin Consult Reason/Comments: post op medical management Do you want consulting provider notified?: Yes Primary care physician: Olya Austin Hospital Course: Patient is an 83-year-old female with multiple medical problems was admitted under my care last Friday. She underwent uncomplicated right total knee replacement. Following surgery she was transferred to the orthopedic floor in stable condition. She received 2 doses of postoperative antibiotics and was then started on doxycycline. She was managed by internal medicine for all for preoperative medical issues. She had her drain pulled and dressings applied over her incision and drain site. She worked with physical therapy. She was ultimately cleared for discharge to rehab. Plan - Discharge Summary Discharge Rx Participant: No New Discharge Prescriptions: New Omeprazole 40 mg PO DAILY #30 cap Doxycycline Monohydrate 100 mg PO BID #30 cap HYDROcodone/APAP 5-325MG [Dahinda 5-325] 1 - 2 tab PO Q6HR PRN #32 tab PRN Reason: Pain Docusate [Colace] 100 mg PO BID #28 capsule Continue Baclofen [Lioresal] 10 mg PO TID PRN PRN Reason: Muscle Spasm allopurinoL [Zyloprim] 100 mg PO DAILY Losartan Potassium [Cozaar] 100 mg PO DAILY Apixaban [Eliquis] 5 mg PO BID #60 tab Multivit-Min/Iron/Folic/Lutein [Centrum Silver Women Tablet] 1 tab PO DAILY Semaglutide [Ozempic] 0.5 mg SQ DIRECTED hydroCHLOROthiazide [Hydrodiuril] 25 mg PO DAILY Nf-Azo 4 cap PO DAILY Ezetimibe [Zetia] 10 mg PO DAILY Dapagliflozin Propanediol [Farxiga] 10 mg PO DAILY Furosemide [Lasix] 20 mg PO DAILY PRN PRN Reason: Edema Vitamin B Complex 1 cap PO DAILY Cholecalciferol [Vitamin D3 (25 Mcg = 1000 Iu)] 25 mcg PO DAILY DULoxetine HCL [Cymbalta] 60 mg PO HS Pregabalin [Lyrica] 150 mg PO BID #6 cap Verapamil HCl [Verapamil ER] 120 mg PO DAILY Naproxen [Naprosyn] 500 mg PO DAILY Acetaminophen [Tylenol Extra Strength] 1,000 mg PO BID HYDROcodone/APAP 10-325MG [Dahinda 10-325] 1 tab PO TID Potassium Chloride ER [K-Dur 20] 10 meq PO DAILY PRN PRN Reason: TAKE WITH FUROSEMIDE Discharge Medication List Baclofen [Lioresal] 10 mg PO TID PRN 09/21/20 [History] allopurinoL [Zyloprim] 100 mg PO DAILY 09/21/20 [History] Cholecalciferol [Vitamin D3 (25 Mcg = 1000 Iu)] 25 mcg PO DAILY 11/04/22 [ History] Losartan Potassium [Cozaar] 100 mg PO DAILY 11/04/22 [History] Vitamin B Complex 1 cap PO DAILY 11/04/22 [History] Apixaban [Eliquis] 5 mg PO BID #60 tab 11/13/22 [Rx] DULoxetine HCL [Cymbalta] 60 mg PO HS 01/03/23 [History] Multivit-Min/Iron/Folic/Lutein [Centrum Silver Women Tablet] 1 tab PO DAILY 01/03/23 [History] Pregabalin [Lyrica] 150 mg PO BID #6 cap 01/08/23 [Rx] Semaglutide [Ozempic] 0.5 mg SQ DIRECTED 02/20/23 [History] hydroCHLOROthiazide [Hydrodiuril] 25 mg PO DAILY 02/20/23 [History] Acetaminophen [Tylenol Extra Strength] 1,000 mg PO BID 07/17/23 [History] Dapagliflozin Propanediol [Farxiga] 10 mg PO DAILY 07/17/23 [History] Ezetimibe [Zetia] 10 mg PO DAILY 07/17/23 [History] Furosemide [Lasix] 20 mg PO DAILY PRN 07/17/23 [History] HYDROcodone/APAP 10-325MG [Dahinda 10-325] 1 tab PO TID 07/17/23 [History] Naproxen [Naprosyn] 500 mg PO DAILY 07/17/23 [History] Nf-Azo 4 cap PO DAILY 07/17/23 [History] Potassium Chloride ER [K-Dur 20] 10 meq PO DAILY PRN 07/17/23 [History] Verapamil HCl [Verapamil ER] 120 mg PO DAILY 07/17/23 [History] Docusate [Colace] 100 mg PO BID #28 capsule 07/27/23 [Rx] Doxycycline Monohydrate 100 mg PO BID #30 cap 07/27/23 [Rx] HYDROcodone/APAP 5-325MG [Dahinda 5-325] 1 - 2 tab PO Q6HR PRN #32 tab 07/27/23 [Rx] Omeprazole 40 mg PO DAILY #30 cap 07/27/23 [Rx] Follow up Appointment(s)/Referral(s): Jordan Joiner MD [Medical Doctor] - 2 Weeks Activity/Diet/Wound Care/Special Instructions: 1. Weight-bear as tolerated on your operative extremity unless instructed otherwise. Use a walker or other assistive device to ambulate. 2. Leave surgical dressing in place. If your dressing becomes saturated with blood, there is drainage, or the dressing becomes loose please contact the office. 3. It is okay to shower with your surgical dressing, but do not submerge in water (no hot tubs, bath's, swimming etc.) 4. Make sure to take her blood clot prevention medication as prescribed (aspirin, Eliquis, Xarelto, and Plavix are commonly prescribed medications for blood clot prevention) 5. While taking Dahinda or Percocet for pain make sure you're taking a stool softener (Colace) and drink lots of water. 6. Keep all follow-up appointments as scheduled. You will usually be seen in 1-2 weeks following surgery. 7. Please contact the office with any questions or concerns [phone] Discharge Disposition: TRANSFER TO SNF/ECF
[2023-07-28 09:00] LABS: Basophils # (A) 0.01 X 10*3/uL (0.00-0.10); Basophils % (A) 0.2 %; Eosinophils # (A) 0.37 X 10*3/uL (0.04-0.35); Eosinophils % (A) 6.2 %; HGB 8.2 g/dL (12.0-15.0); Lymphocytes # (A) 0.57 X 10*3/uL (0.90-5.00); Lymphocytes % (A) 9.6 %; MCH 29.2 pg (27.0-32.0); MCHC 31.5 g/dL (32.0-37.0); MCV 92.5 FL (80.0-97.0); Mean Platelet Volume 11.5 FL (9.5-12.2); Monocytes # (A) 0.75 X 10*3/uL (0.20-1.00); Monocytes % (A) 12.6 %; NRBC Per 100 WBC 0 X 10*3/uL (0.00-0.01); Neutrophils # (A) 4.24 X 10*3/uL (1.80-7.70); Neutrophils % (A) 71.1 %; Platelet Count 181 X 10*3/uL (140-440); RBC 2.81 X 10*6/uL (4.10-5.20); RDW 15.1 % (11.5-14.5); WBC 5.96 X 10*3/uL (4.50-10.00)
[2023-07-28 09:28] LABS: Blood Urea Nitrogen 9.3 mg/dL (9.0-27.0); Glucose 125 mg/dL (70-110)
[2023-07-28 09:29] LABS: ALT 13 U/L (8-44); AST 16 U/L (13-35); Albumin/Globulin Ratio 1.67 Ratio (1.60-3.17); Alkaline Phosphatase 43 U/L (41-126); Chloride 103 mmol/L (96-109); Globulin 1.8 g/dL (1.6-3.3); Potassium 3.9 mmol/L (3.5-5.5); Sodium 139 mmol/L (135-145); Total Bilirubin 0.4 mg/dL (0.3-1.2); Total Protein 4.8 g/dL (6.2-8.2)
[2023-07-28 11:23] LABS: Glucose,Whole Blood 151 mg/dL (70-110)
--- NOTE | 2023-07-28 13:08 | P.PN ---
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 Patient has been brought into the hospital under the care of Dr. Joiner status post right total knee arthroplasty performed yesterday. Patient has had some oozing of blood around the Hemovac which was removed this morning and patient continues to have losing from the site occasional blood clot. Dr. Joiner will be rechecking her. Patient denies having any dizziness, no chest pain. She states she is starting to have some heartburn. No nausea. Hemoglobin is 11.7. She states her pain is a #5 out of 10. Her daughter Sophia is at the bedside. Patient has been afebrile, heart rate 85, blood pressure 131/56, pulse ox 92% on room air. Repeat blood work ordered for the morning. Eliquis is on hold. 07/25: Patient is seen in follow up. HR 57-85, BP 111/62, PO 94% on RA, afebrile. WBC 9.4, HGB 8.6, PLT 125. Creat 0.9. CBG 134-155. Discharge plan is [facility] on Friday. 07/26: Patient is lying down in bed in no acute distress, she had episode yesterday where she became confused and the Nursing staff thought that she had a stroke so a code stroke was called and hadCT brain was negative followed by CTA of the head and neck, bpth negative, CXR was negative she had a temperature 101.2 was started on vanco and Azactam and sent urine cultures and blood cultures , we will continue to monitr very closely, she will likely going to [facility] on Friday 07/27: Patient is sitting up in chair in no distress, was started on Eliquis yesterday and we will continue with currnt treatment plan hopefully [facility] in AM, no available cutures in the computers we will discuss with nursing staff if that even was collected before the ABX were started. 07/28: Patient is scheduled for discharge today to subacute rehab at [facility]. She remains afebrile, heart rate in the 80s, blood pressure 110/69 and pulse ox 93% on 2 L nasal cannula. Repeat blood work reveals hemoglobin of 8.2, WBC 5.9 and platelet count 181. Electrolytes and renal function are normal. Blood sugars are running between 128 and 151. Orthopedics has ordered for doxycycline for 15 day course. She will be resumed back on Ozempic. REVIEW OF SYSTEMS Constitutional: No fever, no chills, no night sweats. No weight change. No weakness, fatigue or lethargy. No daytime sleepiness. HEENT: No headache. No blurred vision or double vision, no loss of vision. Chronic loss of Hearing, no ringing in the ears, no dizziness. No nasal drainage or congestion. No epistaxis. No sore throat. Lungs: No shortness of breath, cough, no sputum production. No wheezing. Cardiovascular: No chest pain, no lower extremity edema. No palpitations. No paroxysmal nocturnal dyspnea. No orthopnea. No lightheadedness or dizziness. No syncopal episodes. Abdominal: No abdominal pain. No nausea, vomiting. No diarrhea. No constipation. No bloody or tarry stools. No loss of appetite. Genitourinary: Denies dysuria, denies frequency, urgency. No urinary retention. Musculoskeletal: No myalgias. Noted muscle weakness, noted gait dysfunction, fall at home. No back pain. No neck pain. Right knee discomfort Integumentary: Right knee wounds. No rash or pruritus. No unusual bruising. No change in hair or nails. Neurologic: Noted aphasia. No facial droop. Noted change in mentation. No head injury. No headache. No paralysis. No paresthesia. Psychiatric: No depression. No anxiety. No mood swings. Endocrine: No abnormal blood sugars. No weight change. No excessive sweating or thirst. No cold intolerance. PHYSICAL EXAMINATION Gen: This is an 83-year-old obese female. She is resting in recliner and appears to be comfortable and in no acute distress. HEENT: Head is atraumatic, normocephalic. Pupils equal, round. Sclerae is anicteric. NECK: Supple. No JVD. No lymphadenopathy. No thyromegaly. LUNGS: Clear to auscultation. No wheezes or rhonchi. No intercostal retractions. HEART: First heart sound is depressed, second heart sound is normal, 2/6 systolic ejection murmur at the left sternal border. ABDOMEN: Soft, mild tenderness to the epigastric area, no rebound or guarding po sitive bowel sounds EXTREMITIES: No pedal edema. No calf tenderness, DP+[address] to the right knee. Sanguinous drainage from the Hemovac site. NEUROLOGICAL: Patient is awake, alert and oriented to person and place, CN II- XII are grossly intact muscle power 4/5 in bilateral upper and lower extremities. ASSESSMENT AND PLAN 1. POD# 5 post Right TKA . Continue current pain management, continue PT and OT per orthopedics. Incentive spirometry to reduce incidence of atelectasis and hospital-acquired pneumonia, we will continue Eliquis 5 mg po bid 2. Paroxysmal Atrial fibrillation. we will resume Eliquis 5 mg po bid. Continue verapamil 120 mg daily. 3. Hypertension and hypertensive cardiovascular disease. Continue patient on hydrochlorothiazide 25 mg daily, losartan 100 mg daily, and verapamil 120 mg daily. 5. Hyperlipidemia. we will continue Zetia 10 mg po daily 6. Diabetes mellitus type 2. Continue patient on add NovoLog scale before meals and at bedtime, we will continue with Farxiga 10 mg po daily. Oxempic is on hold for surgery and will be resumed post op. 7. Diabetic polyneuropathy. Continue Duloxetin 60 mg po daily 8. 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 Continue baclofen 10 mg 3 times daily as needed. 9. Idiopathic gout. Continue allopurinol 100 mg daily. 10. Obstructive sleep apnea. Continue CPAP. 11. GI prophylaxis and gastroesophageal reflux disease. Start Protonix 40 mg po daily 12. DVT prophylaxis. resume Eliquis 5 mg po bid 13. Metabolic encephalopathy likely due to pain medications without evidence of infection or stroke. we will continue with empiric IV ABX till the cultures are back 14. Buck today Impression and plan of care have been directed as dictated by the signing physi cian. Yokasta Haider nurse practitioner acting as scribe for signing physician. Objective - Vital Signs Vital signs: Vital Signs Temp 98.5 F 07/28/23 08:00 Pulse 68 07/28/23 09:37 Resp 17 07/28/23 08:00 BP 110/69 07/28/23 08:00 Pulse Ox 93 L 07/28/23 08:00 FiO2 Intake & Output 07/27/23 07/28/23 07/28/23 18:59 06:59 18:59 Output Total 600 Balance -600 Output: Urine 600 Other: Voiding Method Bedside Commode Bedside Commode Bedside Commode External Catheter Diaper Diaper External Catheter External Catheter # Voids 1 - Labs CBC & Chem 7: 07/28/23 04:58 07/28/23 04:58 Labs: Abnormal Lab Results - Last 24 Hours (Table) 07/27/23 07/27/23 07/27/23 Range/Units 05:25 15:00 16:36 RBC (4.10-5.20) X 10*6/uL Hgb (12.0-15.0) g/dL Hct (37.2-46.3) % MCHC (32.0-37.0) g/dL RDW (11.5-14.5) % Lymphocytes # (0.90-5.00) X 10*3/uL Eosinophils # (0.04-0.35) X 10*3/uL Glucose 125 H (70-110) mg/dL POC Glucose (mg/dL) 149 H (70-110) mg/dL Calcium 8.0 L (8.7-10.3) mg/dL Total Protein 4.8 L (6.2-8.2) g/dL Albumin 3.0 L (3.8-4.9) g/dL Urine Protein Trace H (Negative) Urine Glucose (UA) 4+ H (Negative) Urine Blood Moderate H (Negative) Urine RBC 73 H (0-5) /hpf Urine WBC 7 H (0-5) /hpf 07/27/23 07/28/23 07/28/23 Range/Units 19:17 04:58 04:58 RBC 2.81 L (4.10-5.20) X 10*6/uL Hgb 8.2 L (12.0-15.0) g/dL Hct 26.0 L (37.2-46.3) % MCHC 31.5 L (32.0-37.0) g/dL RDW 15.1 H (11.5-14.5) % Lymphocytes # 0.57 L (0.90-5.00) X 10*3/uL Eosinophils # 0.37 H (0.04-0.35) X 10*3/uL Glucose 125 H (70-110) mg/dL POC Glucose (mg/dL) 128 H (70-110) mg/dL Calcium 8.0 L (8.7-10.3) mg/dL Total Protein 4.8 L (6.2-8.2) g/dL Albumin 3.0 L (3.8-4.9) g/dL Urine Protein (Negative) Urine Glucose (UA) (Negative) Urine Blood (Negative) Urine RBC (0-5) /hpf Urine WBC (0-5) /hpf 07/28/23 07/28/23 Range/Units 05:34 11:22 RBC (4.10-5.20) X 10*6/uL Hgb (12.0-15.0) g/dL Hct (37.2-46.3) % MCHC (32.0-37.0) g/dL RDW (11.5-14.5) % Lymphocytes # (0.90-5.00) X 10*3/uL Eosinophils # (0.04-0.35) X 10*3/uL Glucose (70-110) mg/dL POC Glucose (mg/dL) 137 H 151 H (70-110) mg/dL Calcium (8.7-10.3) mg/dL Total Protein (6.2-8.2) g/dL Albumin (3.8-4.9) g/dL Urine Protein (Negative) Urine Glucose (UA) (Negative) Urine Blood (Negative) Urine RBC (0-5) /hpf Urine WBC (0-5) /hpf Microbiology - Last 24 Hours (Table) 07/25/23 23:32 Blood Culture - Preliminary Blood 07/26/23 01:30 Urine Culture - Preliminary Urine,Voided Group D Enterococcus
[2023-07-28] MEDS: diazePAM 5 MG TAB PO PRN (13:35)
[2023-07-28] MEDS: BACLOFEN 10 MG TAB PO PRN ×3 (13:36→22:00)
[2023-07-28 16:18] LABS: Glucose,Whole Blood 164 mg/dL (70-110)
[2023-07-28] MEDS: LACTATED RINGERS 1,000 ML IV SCH (16:18)
[2023-07-28 20:51] LABS: Glucose,Whole Blood 148 mg/dL (70-110)
[2023-07-28] MEDS: DULoxetine HCL 60 MG CAPSULE.DR PO SCH (20:59)
[2023-07-29] MEDS: diazePAM 5 MG TAB PO PRN ×2 (01:08→11:37)
[2023-07-29 03:39] VITALS: TEMP 98.1
[2023-07-29 05:46] LABS: Glucose,Whole Blood 136 mg/dL (70-110)
[2023-07-29] MEDS: HYDROcodone/APAP 10-325MG 1 EACH TAB PO PRN ×2 (05:49→11:31)
[2023-07-29] MEDS: PANTOPRAZOLE 40 MG TABLET PO SCH (05:50)
[2023-07-29 07:53] VITALS: BP 131/74; PULSE 87; RESP 19
[2023-07-29] MEDS: DOXYCYCLINE 100 MG CAP PO SCH (08:26)
[2023-07-29] MEDS: allopurinoL 100 MG TAB PO SCH (08:26)
[2023-07-29] MEDS: MULTIVITAMINS, THERA 1 EACH TAB PO SCH (08:26)
[2023-07-29] MEDS: CHOLECALCIFEROL 25 MCG (1000 IU) TABLET PO SCH (08:26)
[2023-07-29] MEDS: DAPAGLIFLOZIN PROPANEDIOL 10 MG TABLET PO SCH (08:27)
[2023-07-29] MEDS: SENNOSIDES-DOCUSATE SODIUM 1 EACH TAB PO SCH (08:27)
[2023-07-29] MEDS: EZETIMIBE 10 MG TAB PO SCH (08:27)
[2023-07-29] MEDS: APIXABAN 5 MG TAB PO SCH (08:27)
[2023-07-29] MEDS: PREGABALIN 75 MG CAP PO SCH (08:27)
[2023-07-29 11:14] LABS: Glucose,Whole Blood 152 mg/dL (70-110)
== END 2023-07-29 11:59 | DRG 469 ==
LOC: OR 11:16 → 4SSUR 15:46 → 3SCARD 17:54 → 4SSUR 18:46 → 3SCARD 18:46 → 4SSUR 18:52
PROVIDERS: ADMIT Orthopaedic Surgery; ATTEND Orthopaedic Surgery
PROC: 8E0YXBG Computer Assisted Procedure of Lower Extremity, With Computerized Tomography (ICD-10-PCS; principal; 2023-07-23 13:00)
PROC: 0SRC0J9 Replacement of Right Knee Joint with Synthetic Substitute, Cemented, Open Approach (ICD-10-PCS; principal; 2023-07-23 13:00)
DX: M17.0 Bilateral primary osteoarthritis of knee (principal); G92.8 Other toxic encephalopathy; E11.42 Type 2 diabetes mellitus with diabetic polyneuropathy; I48.0 Paroxysmal atrial fibrillation; E78.5 Hyperlipidemia, unspecified; G47.33 Obstructive sleep apnea (adult) (pediatric); I11.9 Hypertensive heart disease without heart failure; K21.9 Gastro-esophageal reflux disease without esophagitis; M10.00 Idiopathic gout, unspecified site; M47.816 Spondylosis without myelopathy or radiculopathy, lumbar region; M79.7 Fibromyalgia; T39.95XA Adverse effect of unspecified nonopioid analgesic, antipyretic and antirheumatic, initial encounter; H93.19 Tinnitus, unspecified ear; M10.9 Gout, unspecified; I89.0 Lymphedema, not elsewhere classified; H91.90 Unspecified hearing loss, unspecified ear; Z79.01 Long term (current) use of anticoagulants; Z79.84 Long term (current) use of oral hypoglycemic drugs; Z79.891 Long term (current) use of opiate analgesic; Z79.1 Long term (current) use of non-steroidal anti-inflammatories (NSAID); Z79.85 Long-term (current) use of injectable non-insulin antidiabetic drugs; Z79.899 Other long term (current) drug therapy; Z87.440 Personal history of urinary (tract) infections; Z98.1 Arthrodesis status; Z96.82 Presence of neurostimulator; Z86.718 Personal history of other venous thrombosis and embolism; Z86.73 Personal history of transient ischemic attack (TIA), and cerebral infarction without residual deficits; Z88.1 Allergy status to other antibiotic agents; Z88.0 Allergy status to penicillin
CPT/HCPCS: 64447; 64999; 70450; 70496; 70498; 71045; 80053; 81001; 85025; 87040; 87077; 87086; 87186

== ENCOUNTER → 2023-09-09 | Outpatient (CLI) | payer MEDICARE, OTHER ==
[2023-09-09 13:28] LABS: African American GFR (CKD) 70 (>60 ml/min/1.73 sqM); Blood Urea Nitrogen 21 mg/dL (7-17); Non-African American GFR(CKD) 60 (>60 ml/min/1.73 sqM)
--- NOTE | 2023-09-09 15:46 | CT ---
EXAMINATION TYPE: CT urogram wo/w con DATE OF EXAM: 09/09/2023 COMPARISON: None INDICATION: Benign Essential Microscopic Hematuria DLP: 3231 mGycm, Automated exposure control for dose reduction was used. CONTRAST: 100 ml mL of Isovue 300. Study performed TECHNIQUE: Axial images were obtained from above the diaphragm to the pubic rami in the axial plane a t 5 mm thick sections. Reconstructed images are reviewed on the computer in the coronal plane. FINDINGS: Limited CT sections are obtained the lung bases. The lung bases are clear. CT ABDOMEN: Liver: Normal Spleen: Normal Pancreas: Normal Adrenal glands: The adrenal glands are normal. Gallbladder: Normal Kidneys: No masses are evident. No hydronephrosis is present. There is a 1.[address] anterior left kidney. Delayed images were obtained through the kidneys, which remain unremarkable . Aorta: Vascular calcification is within the aorta. Inferior vena cava: Normal. CT PELVIS: Loops of bowel within the abdomen and pelvis are normal. The study is without oral contrast limit ing evaluation. Appendix: Not identified. Urinary bladder: Normal. Genitourinary structures: Uterus and ovaries are not identified. Osseous structures: Postsurgical changes and degenerative facet changes are in the lower lumbar spine . Three-D reconstructed images performed on a separate computer by technologist to perform bilateral ki dneys and renal collecting systems. Renal calyces infundibula and renal pelves are normal. Ureters an d segmental sections. Abnormal caliber course and contour to the urinary bladder. There are some sect ions of ureter which are not opacified and underlying abnormality within no sections cannot be exclud ed. IMPRESSION: 1. No suspicious acute changes to account for hematuria. 2. Left renal cyst
== END | disposition home or self-care (01) ==
LOC: RADCTMAIN 12:29
PROVIDERS: ATTEND Urology
DX: N28.1 Cyst of kidney, acquired (principal); R31.1 Benign essential microscopic hematuria
CPT/HCPCS: 82565; 84520; 74178; 36415; 74400; Q9967

== ENCOUNTER 2023-09-11 19:59 | Observation (INO) | payer MEDICARE, OTHER ==
--- NOTE | 2023-09-11 21:40 | ED ---
Altered Mental Status HPI - General Chief Complaint: Altered Mental Status Stated Complaint: Medication issue Time Seen by Provider: 09/11/23 20:13 Source: EMS, RN notes reviewed, old records reviewed Mode of arrival: EMS Limitations: altered mental status - History of Present Illness Initial Comments: This an 83-year-old female to the ER for evaluation of being off her lyrica, patient is here for anxiety, weakness, altered mental status patient is a poor historian secondary to inpatient state, severely anxious and weak MD Complaint: altered mental status, confusion -: days(s) Severity: mild Consistency of Symptoms: waxing and waning Associated Symptoms: denies other symptoms - Related Data Home Medications Medication Instructions Recorded Confirmed allopurinoL [Zyloprim] 100 mg PO DAILY 09/21/20 09/12/23 Cholecalciferol [Vitamin D3 (25 25 mcg PO DAILY 11/04/22 09/12/23 Mcg = 1000 Iu)] Losartan Potassium [Cozaar] 100 mg PO DAILY 11/04/22 09/12/23 Vitamin B Complex 1 cap PO DAILY 11/04/22 09/12/23 DULoxetine HCL [Cymbalta] 60 mg PO HS 01/03/23 09/12/23 Multivit-Min/Iron/Folic/Lutein 1 tab PO DAILY 01/03/23 09/12/23 [Centrum Silver Women Tablet] Dapagliflozin Propanediol [Farxiga] 10 mg PO DAILY 07/17/23 09/12/23 Ezetimibe [Zetia] 10 mg PO DAILY 07/17/23 09/12/23 Furosemide [Lasix] 20 mg PO DAILY PRN 07/17/23 09/12/23 Verapamil HCl [Verapamil ER] 120 mg PO DAILY 07/17/23 09/12/23 Acetaminophen Tab [Tylenol] 650 mg PO Q6H PRN 09/12/23 09/12/23 Azo D-Mannose 500mg 2,000 mg PO DAILY 09/12/23 09/12/23 Famotidine [Pepcid] 40 mg PO HS PRN 09/12/23 09/12/23 HYDROcodone/APAP 10-325MG [[place] 1 tab PO Q8H PRN 09/12/23 09/12/23 10-325] L.acidoph,Paracasei, B.lactis 1 cap PO DAILY 09/12/23 09/12/23 [Probiotic] Melatonin 10 mg PO HS PRN 09/12/23 09/12/23 Potassium Chloride [Klor-Con M10] 10 meq PO DAILY PRN 09/12/23 09/12/23 Pregabalin [Lyrica] 200 mg PO BID 09/12/23 09/12/23 Ubidecarenone [Coenzyme Q10] 200 mg PO DAILY 09/12/23 09/12/23 hydroCHLOROthiazide [Hydrodiuril] 25 mg PO DAILY 09/12/23 09/12/23 Previous Rx's Medication Instructions Recorded Apixaban [Eliquis] 5 mg PO BID #60 tab 11/13/22 Semaglutide [Ozempic] 0.5 mg SQ Th 07/28/23 Nitrofurantoin Monohyd/M-Cryst 100 mg PO Q12HR #14 cap 09/15/23 [Macrobid] Allergies Allergy/AdvReac Type Severity Reaction Status Date / Time cephalexin [From Keflex] Allergy Rash/Hives Verified 09/12/23 09:05 clindamycin Allergy Rash/Hives Verified 09/12/23 09:05 Penicillins Allergy Unknown Verified 09/12/23 09:05 oxybutynin [From Ditropan] AdvReac Hallucinati Verified 09/12/23 09:05 ons Review of Systems ROS Statement: Those systems with pertinent positive or pertinent negative responses have been documented in the HPI. ROS Other: All systems not noted in ROS Statement are negative. Past Medical History Past Medical History: Atrial Fibrillation, CVA/TIA, Diabetes Mellitus, Fibromyalgia, GERD/Reflux, Hypertension, Pneumonia, Rheumatoid Arthritis (RA) Additional Past Medical History / Comment(s): recurrent UTIs, respiratory failure, cateracts, recent TIA, possible A-fib History of Any Multi-Drug Resistant Organisms: None Reported Past Surgical History: Back Surgery, Hysterectomy Additional Past Surgical History / Comment(s): 5 back surgery since 2014, total hysterectomy Past Anesthesia/Blood Transfusion Reactions: No Reported Reaction Past Psychological History: No Psychological Hx Reported Smoking Status: Never smoker Past Alcohol Use History: None Reported Past Drug Use History: None Reported - Past Family History Mother Family Medical History: CVA/TIA, Hyperlipidemia, Hypertension, Myocardial Infarction (MT) General Exam Limitations: altered mental status General appearance: alert, in no apparent distress Head exam: Present: atraumatic, normocephalic, normal inspection Eye exam: Present: normal appearance, PERRL, EOMI. Absent: scleral icterus, c onjunctival injection, periorbital swelling ENT exam: Present: normal exam, mucous membranes moist Neck exam: Present: normal inspection. Absent: tenderness, meningismus, lymphadenopathy Respiratory exam: Present: normal lung sounds bilaterally. Absent: respiratory distress, wheezes, rales, rhonchi, stridor Cardiovascular Exam: Present: regular rate, normal rhythm, normal heart sounds. Absent: systolic murmur, diastolic murmur, rubs, gallop, clicks GI/Abdominal exam: Present: soft, normal bowel sounds. Absent: distended, tenderness, guarding, rebound, rigid Extremities exam: Present: normal inspection, full ROM, normal capillary refill. Absent: tenderness, pedal edema, joint swelling, calf tenderness Back exam: Present: normal inspection Neurological exam: Present: alert, oriented X3, CN II-XII intact Psychiatric exam: Present: normal affect, normal mood Skin exam: Present: warm, dry, intact, normal color. Absent: rash Course Vital Signs 09/11/23 09/11/23 09/12/23 20:10 23:07 01:00 Temperature 99.2 F 98.9 F Pulse Rate 96 89 90 Respiratory 18 16 18 Rate Blood Pressure 139/116 147/82 148/72 O2 Sat by Pulse 97 97 96 Oximetry 09/12/23 09/12/23 09/12/23 02:30 07:00 10:00 Temperature 98.7 F Pulse Rate 96 87 86 Respiratory 18 18 20 Rate Blood Pressure 140/89 146/75 152/84 O2 Sat by Pulse 92 L 93 L 93 L Oximetry 09/12/23 09/12/23 11:20 17:56 Temperature 98.8 F Pulse Rate 87 81 Respiratory 18 18 Rate Blood Pressure 126/89 133/72 O2 Sat by Pulse 93 L 94 L Oximetry - Reevaluation(s) Reevaluation #1: 09/11/23 21:59 Medical records reviewed Reevaluation #2: Patient symptoms unchanged Reevaluation #3: Patient informed of results questions answered Reevaluation #4: 09/11/23 21:59 Was pt. sent in by a medical professional or institution (, PA, TAR DISTRIBUTOR OPERATOR, urgent care, hospital, or fdc...) When possible be specific @ -no Did you speak to anyone other than the patient for history (EMS, parent, family, police, friend...)? What history was obtained from this source @ -no Did you review nursing and triage notes (agree or disagree)? Why? @ -agree Are old charts reviewed (outside hosp., previous admission, EMS record, old EKG, old radiological studies, urgent care reports/EKG's, fdc records)? Report findings @ -yes Differential Diagnosis (chest pain, altered mental status, abdominal pain women, abdominal pain men, vaginal bleeding, weakness, fever, dyspnea, syncope, headache, dizziness, GI bleed, back pain, seizure, CVA, palpatations, mental health, musculoskeletal)? @ -prior EKG interpreted by me (3pts min.). @ -yes X-rays interpreted by me (1pt min.). @ -no CT interpreted by me (1pt min.). @ -no U/S interpreted by me (1pt. min.). @ -no What testing was considered but not performed or refused? (CT, X-rays, U/S, labs)? Why? @ -none What meds were considered but not given or refused? Why? @ -none Did you discuss the management of the patient with other professionals (professionals i.e. , PA, TAR DISTRIBUTOR OPERATOR, lab, RT, psych nurse, social services analyst, water taxi driver, teacher, corporate ethics officer, lining caser)? Give summary @ -no Was smoking cessation discussed for >3mins.? @ -no Was critical care preformed (if so, how long)? @ -no Were there social determinants of health that impacted care today? How? (Homelessness, low income, unemployed, alcoholism, drug addiction, transportation, low edu. Level, literacy, decrease access to med. care, correction, rehab)? @ -none Was there de-escalation of care discussed even if they declined (Discuss DNR or withdrawal of care, Hospice)? DNR status @ -no What co-morbidities impacted this encounter? (DM, HTN, Smoking, COPD, CAD, Cancer, CVA, ARF, Chemo, Hep., AIDS, mental health diagnosis, sleep apnea, morbid obesity)? @ -none Was patient admitted / discharged? Hospital course, mention meds given and route, prescriptions, significant lab abnormalities, going to OR and other pertinent info. @ -83-year-old female to ER for evaluation abdominal pain, persistent altered mental status with significant history of altered mental status Admitted Undiagnosed new problem with uncertain prognosis? @ -no Drug Therapy requiring intensive monitoring for toxicity (Heparin, Nitro, Insulin, Cardizem)? @ -no Were any procedures done? @ -no Diagnosis/symptom? @ -Altered mental status Acute, or Chronic, or Acute on Chronic? @ -Acute Uncomplicated (without systemic symptoms) or Complicated (systemic symptoms)? @ -Complicated Side effects of treatment? @ -no Exacerbation, Progression, or Severe Exacerbation? @ -exacerbation Poses a threat to life or bodily function? How? (Chest pain, USA, MT, pneumonia, PE, COPD, DKA, ARF, appy, cholecystitis, CVA, Diverticulitis, Homicidal, Suicidal, threat to staff... and all critical care pts) @ -yes extremes of age Reevaluation #5: 09/11/23 21:59 Differential Altered Mental Status: Hypoglycemia, DKA, hypercapnia, ETOH, overdose, CO poisoning, trauma, myxedema coma, HTN encephalopathy, infection, encephalitis, psychosis, intercranial hemor rhage, hepatic encephalopathy, meningitis, CVA, this is not meant to be an all- inclusive list - Consultations Consultation #1: Spoke with Dr. Austin who agrees to admit this patient Medical Decision Making - Medical Decision Making 83-year-old female from outside facility, altered mental state. Patient will be admitted for altered mental state and need for antibiotics - Lab Data Result diagrams: 09/15/23 05:58 09/15/23 05:58 Lab Results 09/11/23 09/11/23 09/11/23 Range/Units 22:30 22:30 22:30 WBC 6.8 (3.8-10.6) k/uL RBC 4.34 (3.80-5.40) m/uL Hgb 12.0 (11.4-16.0) gm/dL Hct 36.7 (34.0-46.0) % MCV 84.6 (80.0-100.0) fL MCH 27.6 (25.0-35.0) pg MCHC 32.7 (31.0-37.0) g/dL RDW 16.2 H (11.5-15.5) % Plt Count 215 (150-450) k/uL MPV 9.0 Neutrophils % 78 % Lymphocytes % 10 % Monocytes % 8 % Eosinophils % 1 % Basophils % 0 % Neutrophils # 5.3 (1.3-7.7) k/uL Lymphocytes # 0.7 L (1.0-4.8) k/uL Monocytes # 0.6 (0-1.0) k/uL Eosinophils # 0.1 (0-0.7) k/uL Basophils # 0.0 (0-0.2) k/uL Hypochromasia Moderate Anisocytosis Slight PT 11.4 (10.0-12.5) sec INR 1.1 (<1.2) APTT 25.1 (22.0-30.0) sec Sodium 141 (137-145) mmol/L Potassium 4.3 (3.5-5.1) mmol/L Chloride 108 H (98-107) mmol/L Carbon Dioxide 25 (22-30) mmol/L Anion Gap 8 mmol/L BUN 16 (7-17) mg/dL Creatinine 0.75 (0.52-1.04) mg/dL Est GFR (CKD-EPI)AfAm 87 (>60 ml/min/1.73 sqM) Est GFR (CKD-EPI)NonAf 75 (>60 ml/min/1.73 sqM) Glucose 106 H (74-99) mg/dL Plasma Lactic Acid [place] (0.7-2.0) mmol/L Calcium 9.5 (8.4-10.2) mg/dL Phosphorus 3.4 (2.5-4.5) mg/dL Magnesium 1.6 (1.6-2.3) mg/dL Total Bilirubin 0.7 (0.2-1.3) mg/dL AST 41 H (14-36) U/L ALT 17 (4-34) U/L Alkaline Phosphatase 52 (38-126) U/L Troponin I (0.000-0.034) ng/mL NT-Pro-B Natriuret Pep 359 pg/mL Total Protein 7.0 (6.3-8.2) g/dL Albumin 4.2 (3.5-5.0) g/dL Urine Color Urine Appearance (Clear) Urine pH (5.0-8.0) Ur Specific Dexter (1.001-1.035) Urine Protein (Negative) Urine Glucose (UA) (Negative) Urine Ketones (Negative) Urine Blood (Negative) Urine Nitrite (Negative) Urine Bilirubin (Negative) Urine Urobilinogen (<2.0) mg/dL Ur Leukocyte Esterase (Negative) Urine RBC (0-5) /hpf Urine WBC (0-5) /hpf Urine WBC Clumps (None) /hpf Ur Squamous Epith Cells (0-4) /hpf Urine Bacteria (None) /hpf Hyaline Casts (0-2) /lpf Urine Mucus (None) /hpf Urine Yeast (Budding) (None) /hpf 09/11/23 09/11/23 09/12/23 Range/Units 22:30 23:05 00:45 WBC (3.8-10.6) k/uL RBC (3.80-5.40) m/uL Hgb (11.4-16.0) gm/dL Hct (34.0-46.0) % MCV (80.0-100.0) fL MCH (25.0-35.0) pg MCHC (31.0-37.0) g/dL RDW (11.5-15.5) % Plt Count (150-450) k/uL MPV Neutrophils % % Lymphocytes % % Monocytes % % Eosinophils % % Basophils % % Neutrophils # (1.3-7.7) k/uL Lymphocytes # (1.0-4.8) k/uL Monocytes # (0-1.0) k/uL Eosinophils # (0-0.7) k/uL Basophils # (0-0.2) k/uL Hypochromasia Anisocytosis PT (10.0-12.5) sec INR (<1.2) APTT (22.0-30.0) sec Sodium (137-145) mmol/L Potassium (3.5-5.1) mmol/L Chloride (98-107) mmol/L Carbon Dioxide (22-30) mmol/L Anion Gap mmol/L BUN (7-17) mg/dL Creatinine (0.52-1.04) mg/dL Est GFR (CKD-EPI)AfAm (>60 ml/min/1.73 sqM) Est GFR (CKD-EPI)NonAf (>60 ml/min/1.73 sqM) Glucose (74-99) mg/dL Plasma Lactic Acid [place] 1.1 (0.7-2.0) mmol/L Calcium (8.4-10.2) mg/dL Phosphorus (2.5-4.5) mg/dL Magnesium (1.6-2.3) mg/dL Total Bilirubin (0.2-1.3) mg/dL AST (14-36) U/L ALT (4-34) U/L Alkaline Phosphatase (38-126) U/L Troponin I <0.012 (0.000-0.034) ng/mL NT-Pro-B Natriuret Pep pg/mL Total Protein (6.3-8.2) g/dL Albumin (3.5-5.0) g/dL Urine Color Yellow Urine Appearance Cloudy H (Clear) Urine pH 6.0 (5.0-8.0) Ur Specific Dexter 1.024 (1.001-1.035) Urine Protein Trace H (Negative) Urine Glucose (UA) 3+ H (Negative) Urine Ketones 1+ H (Negative) Urine Blood Large H (Negative) Urine Nitrite Negative (Negative) Urine Bilirubin Negative (Negative) Urine Urobilinogen <2.0 (<2.0) mg/dL Ur Leukocyte Esterase Moderate H (Negative) Urine RBC >182 H (0-5) /hpf Urine WBC 33 H (0-5) /hpf Urine WBC Clumps Rare H (None) /hpf Ur Squamous Epith Cells 1 (0-4) /hpf Urine Bacteria Many H (None) /hpf Hyaline Casts 7 H (0-2) /lpf Urine Mucus Occasional H (None) /hpf Urine Yeast (Budding) Moderate H (None) /hpf - EKG Data -: EKG Interpreted by Me (EKG is paced 89 HI 357 QRS 104 QTc 398) Disposition Clinical Impression: UTI (urinary tract infection), Altered mental status, Metabolic encephalopathy, Delirium due to general medical condition, Acute encephalopathy Disposition: ADMITTED IP TO THIS HOSP Condition: Fair Is patient prescribed a controlled substance at d/c from ED?: No Time of Disposition: 23:00
[2023-09-11] MEDS: PREGABALIN 100 MG CAP PO STA (21:51)
[2023-09-11 22:51] LABS: Anisocytosis Slight; Basophils % (A) 0 %; Eosinophils # (A) 0.1 k/uL (0-0.7); Eosinophils % (A) 1 %; HCT 36.7 % (34.0-46.0); Hypochromasia Moderate; Lymphocytes # (A) 0.7 k/uL (1.0-4.8); Lymphocytes % (A) 10 %; MCH 27.6 pg (25.0-35.0); MCHC 32.7 g/dL (31.0-37.0); MCV 84.6 fL (80.0-100.0); Monocytes # (A) 0.6 k/uL (0-1.0); Monocytes % (A) 8 %; Neutrophils # (A) 5.3 k/uL (1.3-7.7); Neutrophils % (A) 78 %; Platelet Count 215 k/uL (150-450); RBC 4.34 m/uL (3.80-5.40); RDW 16.2 % (11.5-15.5); WBC 6.8 k/uL (3.8-10.6)
[2023-09-11] MEDS: SODIUM CHLORIDE 0.9% 1,000 ML IV STA (22:54)
[2023-09-11] MEDS: LORazepam 2 MG/ML INJ IV STA (22:55)
[2023-09-11 23:00] LABS: Carbon Dioxide 25 mmol/L (22-30); Chloride 108 mmol/L (98-107); Glucose 106 mg/dL (74-99); INR 1.1 (<1.2); Partial Thromboplastin Time 25.1 sec (22.0-30.0); Prothrombin Time 11.4 sec (10.0-12.5); Sodium 141 mmol/L (137-145)
[2023-09-11 23:01] LABS: ALT 17 U/L (4-34); AST 41 U/L (14-36); African American GFR (CKD) 87 (>60 ml/min/1.73 sqM); Albumin 4.2 g/dL (3.5-5.0); Alkaline Phosphatase 52 U/L (38-126); Anion Gap 8 mmol/L; Blood Urea Nitrogen 16 mg/dL (7-17); Calcium 9.5 mg/dL (8.4-10.2); Magnesium 1.6 mg/dL (1.6-2.3); Non-African American GFR(CKD) 75 (>60 ml/min/1.73 sqM); Phosphorus 3.4 mg/dL (2.5-4.5); Total Bilirubin 0.7 mg/dL (0.2-1.3)
[2023-09-11 23:02] LABS: Potassium 4.3 mmol/L (3.5-5.1)
[2023-09-11 23:09] LABS: NT-Pro-B-Type Natriuretic Pept 359 pg/mL
[2023-09-12 02:24] LABS: Appearance,Urine Cloudy (Clear); Bacteria,Urine Many /hpf; Bilirubin,Urine Negative (Negative); Blood,Urine Large (Negative); Budding Yeast,Urine Moderate /hpf; Color,Urine Yellow; Glucose,Urine (UA) 3+ (Negative); Hyaline Casts,Urine 7 /lpf (0-2); Ketones,Urine 1+ (Negative); Leukocyte Esterase,Urine Moderate (Negative); Mucus,Urine Occasional /hpf; Nitrite,Urine Negative (Negative); Protein,Urine Trace (Negative); RBC,Urine >182 /hpf (0-5); Specific Gravity,Urine 1.024 (1.001-1.035); Squamous Epithelial Cell,Urine 1 /hpf (0-4); Urobilinogen,Urine <2.0 mg/dL (<2.0); WBC,Urine 33 /hpf (0-5)
[2023-09-12] MEDS ORDERED: NALOXONE 0.4 MG/ML 1 ML VIAL IV PRN (03:57)
[2023-09-12] MEDS: NITROFURANTOIN MONOHYD/M-CRYST 100 MG CAP PO STA (04:31)
[2023-09-12] MEDS ORDERED: GENTAMICIN PER PHARMACY MISCELLANE PRN (04:47)
[2023-09-12] MEDS: GENTAMICIN 240 MG in SODIUM CHLORIDE 0.9% 100 ML IVPB SCH (05:12)
[2023-09-12] MEDS: GENTAMICIN 300 MG in SODIUM CHLORIDE 0.9% 100 ML IVPB SCH (05:45)
[2023-09-12 10:17] LABS: Glucose,Whole Blood 118 mg/dL (70-110)
[2023-09-12] MEDS: SODIUM CHLORIDE 0.9% 1,000 ML IV SCH (10:25)
[2023-09-12] MEDS: HYDROcodone/APAP 10-325MG 1 EACH TAB PO SCH (10:26)
[2023-09-12] MEDS: PANTOPRAZOLE 40 MG TABLET PO SCH (10:27)
[2023-09-12] MEDS: ACETAMINOPHEN TAB 500 MG TAB PO SCH (10:27)
[2023-09-12] MEDS: PREGABALIN 75 MG CAP PO SCH (10:27)
[2023-09-12] MEDS: LOSARTAN 50 MG TAB PO SCH (11:22)
[2023-09-12] MEDS: CHOLECALCIFEROL 25 MCG (1000 IU) TABLET PO SCH (11:22)
[2023-09-12] MEDS: allopurinoL 100 MG TAB PO SCH (11:22)
[2023-09-12] MEDS: MULTIVITAMINS, THERA 1 EACH TAB PO SCH (11:22)
[2023-09-12] MEDS: EZETIMIBE 10 MG TAB PO SCH (11:22)
[2023-09-12] MEDS: VERAPAMIL SR 120 MG TABLET.ER PO SCH (11:22)
[2023-09-12] MEDS: DAPAGLIFLOZIN PROPANEDIOL 10 MG TABLET PO SCH (11:23)
[2023-09-12] MEDS: APIXABAN 5 MG TAB PO SCH (11:23)
[2023-09-12] MEDS: DOCUSATE 100 MG CAP PO SCH (11:23)
[2023-09-12] MEDS: NON FORMULARY DRUG (Vitamin B Complex [Vitamin B Complex] 1 EACH Capsule) PO SCH (11:34)
--- NOTE | 2023-09-12 14:49 | P.HPIM ---
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 Abhi ledesma was brought into the emergency department at [facility] yesterday with mental status changes while she was living at her assisted living facility, patient became quite confused and her daughter was suspicious for urinary tract infection, she was seen and evaluated in the emergency department, she did not have any leukocytosis, however her urine was quite positive, she was admitted to the hospital for acute urinary tract infection with SIRS along with metabolic encephalopathy, she was started initially on IV antibiotic in the form of gentamicin this was taken off, and because of her multiple allergies and her prior culture showed Enterococcus, patient was placed on an antibiotic in the form of daptomycin 500 mg by piggyback every 24 hours, urine culture and blood culture were sent, infectious disease consultation was obtained from Dr. Perales REVIEW OF SYSTEMS Constitutional: No fever, no chills, no night sweats. No weight change. positive for weakness, fatigue or lethargy. No daytime sleepiness. HEENT: No headache. No blurred vision or double vision, no loss of vision. Chronic loss of Hearing, no ringing in the ears, no dizziness. No nasal drainage or congestion. No epistaxis. No sore throat. Lungs: No shortness of breath, cough, no sputum production. No wheezing. Cardiovascular: No chest pain, no lower extremity edema. No palpitations. No paroxysmal nocturnal dyspnea. No orthopnea. No lightheadedness or dizziness. No syncopal episodes. Abdominal: No abdominal pain. No nausea, vomiting. No diarrhea. No constipation. No bloody or tarry stools. No loss of appetite. Genitourinary: positive for dysuria, positive for frequency, urgency. No urinary retention. Musculoskeletal: No myalgias. Noted muscle weakness, noted gait dysfunction, fall at home. No back pain. No neck pain. Right knee discomfort Integumentary: Right knee wounds. No rash or pruritus. No unusual bruising. No change in hair or nails. Neurologic: Noted aphasia. No facial droop. Noted change in mentation. No head injury. No headache. No paralysis. No paresthesia. Psychiatric: No depression. No anxiety. No mood swings.positive for mental status changes Endocrine: No abnormal blood sugars. No weight change. No excessive sweating or thirst. No cold intolerance. 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 SURGICAL HISTORY Cataract surgery left 20/20 Tonsillectomy and adenoidectomy Laminectomy with fusion of L1-S1 Lumbar discitis post-hardware removal SI joint fusion 2 Spinal cord stimulator Seroma on the back post-wound VAC line colonoscopy with polyps 2018. SOCIAL HISTORY Patient is a lifelong nonsmoker, no alcohol abuse, no illicit drug use. FAMILY HISTORY Father at age 80. Mother at the age of 86 from myocardial infarction had history of hypertension, hyperlipidemia. Patient has one brother with no major medical problems and one sister with no major medical problems. Patient has 3 daughters with no major medical problems. PHYSICAL EXAMINATION Gen: This is an 83-year-old obese female appears confused HEENT: Head is atraumatic, normocephalic. Pupils equal, round. Sclerae is a nicteric. NECK: Supple. No JVD. No lymphadenopathy. No thyromegaly. LUNGS: Clear to auscultation. No wheezes or rhonchi. No intercostal retractions. HEART: First heart sound is depressed, second heart sound is normal, 2/6 systolic ejection murmur at the left sternal border. ABDOMEN: Soft, mild tenderness to the epigastric area, no rebound or guarding positive bowel sounds EXTREMITIES: No pedal edema. No calf tenderness, DP+2 bilaterally. NEUROLOGICAL: Patient is awake, alert and oriented to person and place, CN II- XII are grossly intact muscle power 4/5 in bilateral upper and lower extre mities. ASSESSMENT AND PLAN 1. Metabolic encephalopathy likely related to urinary tract infection with source. Continue IV fluid resuscitation, continue patient on IV antibiotic in the form daptomycin 500 mg IV piggyback every 1224 hrs., check urine culture, blood culture, infectious disease consultation with Dr. Perales, continue IV fluid resuscitation in the form of normal saline at 75 cc an hour. 2. Paroxysmal Atrial fibrillation. Hold eliquis 5 mg po bid for today. Continue verapamil 120 mg daily. 3. Hypertension and hypertensive cardiovascular disease. Continue patient on hydrochlorothiazide 25 mg daily, losartan 100 mg daily, and verapamil 120 mg daily. 5. Hyperlipidemia. we will continue Zetia 10 mg po daily 6. Diabetes mellitus type 2. Continue patient on add NovoLog scale before meals and at bedtime, we will continue with Farxiga 10 mg po daily we will continue with Ozempic 0.5 mg subcutaneously every week., 7. Diabetic polyneuropathy. Continue Duloxetin 60 mg po daily continue pregabalin 50 mg orally twice every day for 8. 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 Continue baclofen 10 mg 3 times daily as needed. 9. Idiopathic gout. Continue allopurinol 100 mg daily. 10. Obstructive sleep apnea. Continue CPAP. 11. GI prophylaxis and gastroesophageal reflux disease. Start Protonix 40 mg po daily 12. DVT prophylaxis. Hold Apixaban 5 mg po bid. 14. Diabetic polyneuropathy. Continue pregabalin 150 mg orally twice every day . 15. Admit to inpatient. Estimated length of stay 2 midnights 16. Full code. Past Medical History Past Medical History: Atrial Fibrillation, CVA/TIA, Diabetes Mellitus, Fibromyalgia, GERD/Reflux, Hypertension, Pneumonia, Rheumatoid Arthritis (RA) Additional Past Medical History / Comment(s): recurrent UTIs, respiratory failure, cateracts, recent TIA, possible A-fib History of Any Multi-Drug Resistant Organisms: None Reported Past Surgical History: Back Surgery, Hysterectomy Additional Past Surgical History / Comment(s): 5 back surgery since 2014, total hysterectomy Past Anesthesia/Blood Transfusion Reactions: No Reported Reaction Past Psychological History: No Psychological Hx Reported Smoking Status: Never smoker Past Alcohol Use History: None Reported Past Drug Use History: None Reported - Past Family History Mother Family Medical History: CVA/TIA, Hyperlipidemia, Hypertension, Myocardial Infarction ([place]) Medications and Allergies Home Medications Medication Instructions Recorded Confirmed Type Baclofen [Lioresal] 10 mg PO TID PRN 09/21/20 07/23/23 History allopurinoL [Zyloprim] 100 mg PO DAILY 09/21/20 07/23/23 History Cholecalciferol [Vitamin D3 (25 25 mcg PO DAILY 11/04/22 07/23/23 History Mcg = 1000 Iu)] Losartan Potassium [Cozaar] 100 mg PO DAILY 11/04/22 07/23/23 History Vitamin B Complex 1 cap PO DAILY 11/04/22 07/23/23 History Apixaban [Eliquis] 5 mg PO BID #60 tab 11/13/22 07/23/23 Rx DULoxetine HCL [Cymbalta] 60 mg PO HS 01/03/23 07/23/23 History Multivit-Min/Iron/Folic/Lutein 1 tab PO DAILY 01/03/23 07/23/23 History [Centrum Silver Women Tablet] Acetaminophen [Tylenol Extra 1,000 mg PO BID 07/17/23 07/23/23 History Strength] Dapagliflozin Propanediol [Farxiga] 10 mg PO DAILY 07/17/23 07/23/23 History Ezetimibe [Zetia] 10 mg PO DAILY 07/17/23 07/23/23 History Furosemide [Lasix] 20 mg PO DAILY PRN 07/17/23 07/23/23 History Naproxen [Naprosyn] 500 mg PO DAILY 07/17/23 07/23/23 History Nf-Azo 4 cap PO DAILY 07/17/23 07/23/23 History Potassium Chloride ER [K-Dur 20] 10 meq PO DAILY PRN 07/17/23 07/23/23 History Verapamil HCl [Verapamil ER] 120 mg PO DAILY 07/17/23 07/23/23 History Docusate [Colace] 100 mg PO BID #28 capsule 07/27/23 Rx Doxycycline Monohydrate 100 mg PO BID #30 cap 07/27/23 Rx Omeprazole 40 mg PO DAILY #30 cap 07/27/23 Rx HYDROcodone/APAP 10-325MG [[place] 1 tab PO TID #9 tab 07/28/23 Rx 10-325] Pregabalin [Lyrica] 150 mg PO BID #6 cap 07/28/23 Rx Semaglutide [Ozempic] 0.5 mg SQ Th 07/28/23 Rx Allergies Allergy/AdvReac Type Severity Reaction Status Date / Time cephalexin [From Keflex] Allergy Rash/Hives Verified 07/23/23 12:10 clindamycin Allergy Rash/Hives Verified 07/23/23 12:10 Penicillins Allergy Unknown Verified 07/23/23 12:10 oxybutynin [From Ditropan] AdvReac Hallucinati Verified 07/23/23 12:10 ons Physical Exam Vitals: Vital Signs Temp Pulse Resp BP Pulse Ox 09/12/23 07:00 87 18 146/75 93 L 09/12/23 02:30 96 18 140/89 92 L 09/12/23 01:00 90 18 148/72 96 09/11/23 23:07 98.9 F 89 16 147/82 97 09/11/23 20:10 99.2 F 96 18 139/116 97 Intake and Output 09/11/23 09/12/23 09/12/23 22:59 06:59 14:59 Other: Weight 81.647 kg Results CBC & Chem 7: 09/11/23 22:30 09/11/23 22:30 Labs: Abnormal Lab Results - Last 24 Hours (Table) 09/11/23 09/11/23 09/12/23 Range/Units 22:30 22:30 00:45 RDW 16.2 H (11.5-15.5) % Lymphocytes # 0.7 L (1.0-4.8) k/uL Chloride 108 H (98-107) mmol/L Glucose 106 H (74-99) mg/dL AST 41 H (14-36) U/L Urine Appearance Cloudy H (Clear) Urine Protein Trace H (Negative) Urine Glucose (UA) 3+ H (Negative) Urine Ketones 1+ H (Negative) Urine Blood Large H (Negative) Ur Leukocyte Esterase Moderate H (Negative) Urine RBC >182 H (0-5) /hpf Urine WBC 33 H (0-5) /hpf Urine WBC Clumps Rare H (None) /hpf Urine Bacteria Many H (None) /hpf Hyaline Casts 7 H (0-2) /lpf Urine Mucus Occasional H (None) /hpf Urine Yeast (Budding) Moderate H (None) /hpf
[2023-09-12] MEDS: DULoxetine HCL 60 MG CAPSULE.DR PO SCH (21:37)
--- NOTE | 2023-09-13 09:10 | P.CONS ---
History of Present Illness - Reason for Consult Consult date: 09/12/23 UTI Requesting physician: Olya Austin - Chief Complaint Weakness and mental status changes x 1 day - History of Present Illness Patient is a 83-year-old female with a past medical history significant for diabetes mellitus hypertension reflux fibromyalgia atrial f ibrillation presenting to the hospital for evaluation of mental status changes from the assisted living facility patient was noted to be quite confused by the daughter and they were suspicious for possible UTI for the patient was brought into the hospital patient denies having any high-grade fever some chills patient denies any headache or URI symptoms no chest pain shortness with occasional cough no nausea no vomiting or any diarrhea has been complaining some urinary burning but no frequency suprapubic or flank pain on arrival to the ER the patient did have a low-grade fever of 99.2 degrees for night patient was not tachycardic hypotensive or hypoxic and no need for supplemental oxygen white count was 6.8, creatinine 0.75 liver isms are normal urine was cloudy with moderate leukocyte esterase 33 WBC patient did have multiple antibiotic allergies and the last urine culture in July grew Enterococcus faecalis patient was started on daptomycin infectious disease was consulted for further management of antibiotic therapy Review of Systems Positive point and negatives has been mentioned in the HPI, complete review of systems was performed and all other systems are negative Past Medical History Past Medical History: Atrial Fibrillation, CVA/TIA, Diabetes Mellitus, Fibromyalgia, GERD/Reflux, Hypertension, Pneumonia, Rheumatoid Arthritis (RA) Additional Past Medical History / Comment(s): recurrent UTIs, respiratory failure, cateracts, recent TIA, possible A-fib History of Any Multi-Drug Resistant Organisms: None Reported Past Surgical History: Back Surgery, Hysterectomy Additional Past Surgical History / Comment(s): 5 back surgery since 2014, total hysterectomy Past Anesthesia/Blood Transfusion Reactions: No Reported Reaction Past Psychological History: No Psychological Hx Reported Smoking Status: Never smoker Past Alcohol Use History: None Reported Past Drug Use History: None Reported - Past Family History Mother Family Medical History: CVA/TIA, Hyperlipidemia, Hypertension, Myocardial Infarction ([place]) Medications and Allergies Home Medications Medication Instructions Recorded Confirmed Type allopurinoL [Zyloprim] 100 mg PO DAILY 09/21/20 09/12/23 History Cholecalciferol [Vitamin D3 (25 25 mcg PO DAILY 11/04/22 09/12/23 History Mcg = 1000 Iu)] Losartan Potassium [Cozaar] 100 mg PO DAILY 11/04/22 09/12/23 History Vitamin B Complex 1 cap PO DAILY 11/04/22 09/12/23 History Apixaban [Eliquis] 5 mg PO BID #60 tab 11/13/22 09/12/23 Rx DULoxetine HCL [Cymbalta] 60 mg PO HS 01/03/23 09/12/23 History Multivit-Min/Iron/Folic/Lutein 1 tab PO DAILY 01/03/23 09/12/23 History [Centrum Silver Women Tablet] Dapagliflozin Propanediol [Farxiga] 10 mg PO DAILY 07/17/23 09/12/23 History Ezetimibe [Zetia] 10 mg PO DAILY 07/17/23 09/12/23 History Furosemide [Lasix] 20 mg PO DAILY PRN 07/17/23 09/12/23 History Verapamil HCl [Verapamil ER] 120 mg PO DAILY 07/17/23 09/12/23 History Semaglutide [Ozempic] 0.5 mg SQ Th 07/28/23 09/12/23 Rx Acetaminophen Tab [Tylenol] 650 mg PO Q6H PRN 09/12/23 09/12/23 History Azo D-Mannose 500mg 2,000 mg PO DAILY 09/12/23 09/12/23 History Famotidine [Pepcid] 40 mg PO HS PRN 09/12/23 09/12/23 History HYDROcodone/APAP 10-325MG [G[place]lord 1 tab PO Q8H PRN 09/12/23 09/12/23 History 10-325] L.acidoph,Paracasei, B.lactis 1 cap PO DAILY 09/12/23 09/12/23 History [Probiotic] Melatonin 10 mg PO HS PRN 09/12/23 09/12/23 History Potassium Chloride [Klor-Con M10] 10 meq PO DAILY PRN 09/12/23 09/12/23 History Pregabalin [Lyrica] 200 mg PO BID 09/12/23 09/12/23 History Ubidecarenone [Coenzyme Q10] 200 mg PO DAILY 09/12/23 09/12/23 History hydroCHLOROthiazide [Hydrodiuril] 25 mg PO DAILY 09/12/23 09/12/23 History Allergies Allergy/AdvReac Type Severity Reaction Status Date / Time cephalexin [From Keflex] Allergy Rash/Hives Verified 09/12/23 09:05 clindamycin Allergy Rash/Hives Verified 09/12/23 09:05 Penicillins Allergy Unknown Verified 09/12/23 09:05 oxybutynin [From Ditropan] AdvReac Hallucinati Verified 09/12/23 09:05 ons Physical Exam Vitals: Vital Signs Temp Pulse Resp BP Pulse Ox 09/12/23 10:00 98.7 F 86 20 152/84 93 L 09/12/23 07:00 87 18 146/75 93 L 09/12/23 02:30 96 18 140/89 92 L 09/12/23 01:00 90 18 148/72 96 09/11/23 23:07 98.9 F 89 16 147/82 97 09/11/23 20:10 99.2 F 96 18 139/116 97 Intake and Output 09/11/23 09/12/23 09/12/23 22:59 06:59 14:59 Other: Weight 81.647 kg GENERAL DESCRIPTION: Elderly female lying in bed, no distress. No tachypnea or accessory muscle of respiration use. HEENT: Shows Pallor , no scleral icterus. Oral mucous membrane is dry. No phary ngeal erythema or thrush NECK: Trachea central, no thyromegaly. LUNGS: Unlabored breathing. Clear to auscultation anteriorly. No wheeze or crackle. HEART: S1, S2, regular rate and rhythm. No loud murmur ABDOMEN: Soft, no tenderness , guarding or rigidity, no organomegaly EXTREMITIES: No edema of feet. SKIN: No rash, no masses palpable. NEUROLOGICAL: The patient is awake, alert, oriented x3, mood and affect normal. Results CBC & Chem 7: 09/11/23 22:30 09/11/23 22:30 Labs: Abnormal Lab Results - Last 24 Hours (Table) 09/11/23 09/11/23 09/12/23 Range/Units 22:30 22:30 00:45 RDW 16.2 H (11.5-15.5) % Lymphocytes # 0.7 L (1.0-4.8) k/uL Chloride 108 H (98-107) mmol/L Glucose 106 H (74-99) mg/dL POC Glucose (mg/dL) (70-110) mg/dL AST 41 H (14-36) U/L Urine Appearance Cloudy H (Clear) Urine Protein Trace H (Negative) Urine Glucose (UA) 3+ H (Negative) Urine Ketones 1+ H (Negative) Urine Blood Large H (Negative) Ur Leukocyte Esterase Moderate H (Negative) Urine RBC >182 H (0-5) /hpf Urine WBC 33 H (0-5) /hpf Urine WBC Clumps Rare H (None) /hpf Urine Bacteria Many H (None) /hpf Hyaline Casts 7 H (0-2) /lpf Urine Mucus Occasional H (None) /hpf Urine Yeast (Budding) Moderate H (None) /hpf 09/12/23 Range/Units 10:16 RDW (11.5-15.5) % Lymphocytes # (1.0-4.8) k/uL Chloride (98-107) mmol/L Glucose (74-99) mg/dL POC Glucose (mg/dL) 118 H (70-110) mg/dL AST (14-36) U/L Urine Appearance (Clear) Urine Protein (Negative) Urine Glucose (UA) (Negative) Urine Ketones (Negative) Urine Blood (Negative) Ur Leukocyte Esterase (Negative) Urine RBC (0-5) /hpf Urine WBC (0-5) /hpf Urine WBC Clumps (None) /hpf Urine Bacteria (None) /hpf Hyaline Casts (0-2) /lpf Urine Mucus (None) /hpf Urine Yeast (Budding) (None) /hpf Assessment and Plan (1) Allergy to multiple antibiotics Current Visit: No Status: Acute Code(s): Z88.1 - ALLERGY STATUS TO OTHER ANTIBIOTIC AGENTS SNOMED Code(s): 092215856 (2) UTI (urinary tract infection) Current Visit: No Status: Acute Code(s): N39.0 - URINARY TRACT INFECTION, SITE NOT SPECIFIED SNOMED Code(s): 60724793 Plan: 1patient presented to the hospital with mental status changes in this patient who did have a history of recurrent UTI and did have low-grade fever positive UA suspicious for symptomatic urinary tract infection last urine culture positive for Enterococcus faecalis 2-patient with multiple antibiotic ALLERGIES that would limit the number of antibiotic safe to use 3-patient to continue the daptomycin 4 mg/kg daily while waiting for the culture to finalize We will follow on clinical condition and cultures to further adjust medication if needed Thank you for this consultation we will follow the patient along with you Dictation was produced using [employer] dictation software. please excuse any grammatical, word or spelling errors. Time with Patient: Greater than 30
[2023-09-14 07:49] LABS: Basophils % (A) 0 %; Eosinophils # (A) 0.3 k/uL (0-0.7); Eosinophils % (A) 6 %; HCT 33.9 % (34.0-46.0); HGB 10.4 gm/dL (11.4-16.0); Hypochromasia Marked; Lymphocytes # (A) 0.8 k/uL (1.0-4.8); Lymphocytes % (A) 16 %; MCH 26.6 pg (25.0-35.0); MCHC 30.7 g/dL (31.0-37.0); MCV 86.9 fL (80.0-100.0); Mean Platelet Volume 8.8; Monocytes # (A) 0.5 k/uL (0-1.0); Monocytes % (A) 10 %; Neutrophils # (A) 3.2 k/uL (1.3-7.7); Neutrophils % (A) 65 %; Platelet Count 197 k/uL (150-450); RDW 15.8 % (11.5-15.5); WBC 4.9 k/uL (3.8-10.6)
[2023-09-14 07:59] LABS: African American GFR (CKD) 87 (>60 ml/min/1.73 sqM); Anion Gap 7 mmol/L; Blood Urea Nitrogen 11 mg/dL (7-17); Calcium 8.6 mg/dL (8.4-10.2); Carbon Dioxide 24 mmol/L (22-30); Chloride 109 mmol/L (98-107); Glucose 107 mg/dL (74-99); Non-African American GFR(CKD) 75 (>60 ml/min/1.73 sqM); Potassium 3.9 mmol/L (3.5-5.1); Sodium 140 mmol/L (137-145)
--- NOTE | 2023-09-14 09:22 | P.PN ---
Subjective Progress Note Date: 09/13/23 Principal diagnosis: Reason for follow-up is urinary tract infection Patient is a 83-year-old female with a past medical history significant for diabetes mellitus hypertension reflux fibromyalgia atrial fibrillation presenting to the hospital for evaluation of mental status changes from the assisted living facility patient was noted to be quite confused, did have a positive UA and some urinary symptoms concerning for symptomatic urinary tract infection. On today's evaluation that is 09/13/2023, the patient denies having any fever or any chills, patient is breathing comfortably on room air, the patient denies having any chest pain shortness of breath and no cough patient denies having any nausea vomiting diarrhea and abdominal pain, mention improvement in her urinary symptoms slightly. No lab work was done today cultures currently pending Objective - Vital Signs Vital signs: Vital Signs Temp 98.2 F 09/13/23 07:49 Pulse 71 09/13/23 07:49 Resp 16 09/13/23 07:49 BP 117/67 09/13/23 07:49 Pulse Ox 92 L 09/13/23 09:20 FiO2 Intake & Output 09/12/23 09/13/23 09/13/23 18:59 06:59 18:59 Intake Total 900 120 Balance 900 120 Weight 82 kg Intake: Intake, IV Titration 900 Amount Sodium Chloride 0.9% 1, 900 000 ml @ 75 mls/hr IV . [id number] [facility] Rx#:[id number] Oral 120 Other: Voiding Method Diaper Diaper Incontinent Incontinent External Catheter External Catheter - Exam GENERAL DESCRIPTION: An elderly female lying in bed in no distress RESPIRATORY SYSTEM: Unlabored breathing , decreased breath sounds at bases HEART: S1 S2 regular rate and rhythm , ABDOMEN: Soft , no tenderness EXTREMITIES: No edema feet - Labs CBC & Chem 7: 09/14/23 06:55 09/14/23 06:55 Assessment and Plan (1) Allergy to multiple antibiotics Current Visit: No Status: Acute Code(s): Z88.1 - ALLERGY STATUS TO OTHER ANTIBIOTIC AGENTS SNOMED Code(s): 308490214 (2) UTI (urinary tract infection) Current Visit: No Status: Acute Code(s): N39.0 - URINARY TRACT INFECTION, SITE NOT SPECIFIED SNOMED Code(s): 11051805 Plan: 1patient presented to the hospital with mental status changes in this patient who did have a history of recurrent UTI and did have low-grade fever positive UA suspicious for symptomatic urinary tract infection last urine culture positive for Enterococcus faecalis 2-patient with multiple antibiotic ALLERGIES that would limit the number of antibiotic safe to use 3-patient did have some clinical improvement and will continue the daptomycin while waiting for the culture to finalize Dictation was produced using [email or web address] dictation software. please excuse any grammatical, word or spelling errors. Time with Patient: Less than 30
[2023-09-14] MEDS: AZTREONAM 2 GM in SODIUM CHLORIDE 0.9% 100 ML IVPB SCH (10:14)
--- NOTE | 2023-09-14 16:29 | P.PN ---
Subjective Progress Note Date: 09/14/23 Principal diagnosis: Reason for follow-up is urinary tract infection Patient is a 83-year-old female with a past medical history significant for diabetes mellitus hypertension reflux fibromyalgia atrial fibrillation presenting to the hospital for evaluation of mental status changes from the assisted living facility patient was noted to be quite confused, did have a positive UA and some urinary symptoms concerning for symptomatic urinary tract infection. On today's evaluation that is 09/14/2023, the patient remains to be afebrile, patient is breathing comfortably on room air and no need for supplemental oxygen, the patient denies chest pain shortness of breath or cough, patient denies abdominal pain and no nausea vomiting or diarrhea, patient mention improvement in her urinary symptoms Patient white count is 4.8, creatinine 0.75 urine grew E. coli Objective - Vital Signs Vital signs: Vital Signs Temp 97.9 F 09/14/23 12:57 Pulse 65 09/14/23 12:57 Resp 18 09/14/23 12:57 BP 115/72 09/14/23 12:57 Pulse Ox 95 09/14/23 12:57 FiO2 Intake & Output 09/13/23 09/14/23 09/14/23 18:59 06:59 18:59 Intake Total 800 1540 Output Total 600 1000 700 Balance 200 540 -700 Intake: Intake, IV Titration 950 Amount DAPTOmycin 400 mg In 50 Sodium Chloride 0.9% 50 ml @ 100 mls/hr IVPB Q24H [facility] Rx#:[id number] Sodium Chloride 0.9% 1, 900 000 ml @ 75 mls/hr IV . [id number] [facility] Rx#:[id number] Oral 800 590 Output: Urine 600 1000 700 Other: Voiding Method Diaper Diaper Diaper Incontinent Incontinent Incontinent External Catheter External Catheter External Catheter # Voids 1 # Bowel Movements 1 - Exam GENERAL DESCRIPTION: An elderly female lying in bed in no distress RESPIRATORY SYSTEM: Unlabored breathing , decreased breath sounds at bases HEART: S1 S2 regular rate and rhythm , ABDOMEN: Soft , no tenderness EXTREMITIES: No edema feet - Labs CBC & Chem 7: 09/14/23 06:55 09/14/23 06:55 Labs: Abnormal Lab Results - Last 24 Hours (Table) 09/14/23 09/14/23 Range/Units 06:55 06:55 Hgb 10.4 L (11.4-16.0) gm/dL Hct 33.9 L (34.0-46.0) % MCHC 30.7 L (31.0-37.0) g/dL RDW 15.8 H (11.5-15.5) % Lymphocytes # 0.8 L (1.0-4.8) k/uL Chloride 109 H (98-107) mmol/L Glucose 107 H (74-99) mg/dL Microbiology - Last 24 Hours (Table) 09/12/23 00:45 Urine Culture - Final Urine,Voided Escherichia coli 09/12/23 10:45 Blood Culture - Preliminary Blood Assessment and Plan (1) Allergy to multiple antibiotics Current Visit: No Status: Acute Code(s): Z88.1 - ALLERGY STATUS TO OTHER ANTIBIOTIC AGENTS SNOMED Code(s): 822416502 (2) UTI (urinary tract infection) Current Visit: No Status: Acute Code(s): N39.0 - URINARY TRACT INFECTION, SITE NOT SPECIFIED SNOMED Code(s): 08990485 Plan: 1patient presented to the hospital with mental status changes in this patient who did have a history of recurrent UTI and did have low-grade fever positive UA suspicious for symptomatic urinary tract infection last urine culture positive for Enterococcus faecalis 2-patient with multiple antibiotic ALLERGIES that would limit the number of antibiotic safe to use 3-patient did have some clinical improvement urine is now growing gram-negative we will discontinue daptomycin and start the patient on Azactam and wait for the culture to finalize Dictation was produced using [employer] dictation software. please excuse any grammatical, word or spelling errors. Time with Patient: Less than 30
--- NOTE | 2023-09-14 17:53 | P.PN ---
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 Patient was brought into the emergency department at [facility] yesterday with mental status changes while she was living at her assisted living facility, patient became quite confused and her daughter was suspicious for urinary tract infection, she was seen and evaluated in the emergency department, she did not have any leukocytosis, however her urine was quite positive, she was admitted to the hospital for acute urinary tract infection with SIRS along with metabolic encephalopathy, she was started initially on IV antibiotic in the form of gentamicin this was taken off, and because of her multiple allergies and her prior culture showed Enterococcus, patient was placed on an antibiotic in the form of daptomycin 500 mg by piggyback every 24 hours, urine culture and blood culture were sent, infectious disease consultation was obtained Objective - Vital Signs Vital signs: Vital Signs Temp 98.2 F 09/13/23 07:49 Pulse 71 09/13/23 07:49 Resp 16 09/13/23 07:49 BP 117/67 09/13/23 07:49 Pulse Ox 92 L 09/13/23 09:20 FiO2 Intake & Output 09/12/23 09/13/23 09/13/23 18:59 06:59 18:59 Intake Total 900 120 Balance 900 120 Weight 82 kg Intake: Intake, IV Titration 900 Amount Sodium Chloride 0.9% 1, 900 000 ml @ 75 mls/hr IV . [id number] [facility] Rx#:[id number] Oral 120 Other: Voiding Method Diaper Diaper Incontinent Incontinent External Catheter External Catheter - Exam Gen: This is an 83-year-old obese female appears confused HEENT: Head is atraumatic, normocephalic. Pupils equal, round. Sclerae is anicteric. NECK: Supple. No JVD. No lymphadenopathy. No thyromegaly. LUNGS: Clear to auscultation. No wheezes or rhonchi. No intercostal retractions. HEART: First heart sound is depressed, second heart sound is normal, 2/6 systolic ejection murmur at the left sternal border. ABDOMEN: Soft, mild tenderness to the epigastric area, no rebound or guarding positive bowel sounds EXTREMITIES: No pedal edema. No calf tenderness, DP+2 bilaterally. NEUROLOGICAL: Patient is awake, alert and oriented to person and place, CN II- XII are grossly intact muscle power 4/5 in bilateral upper and lower extremities. - Labs CBC & Chem 7: 09/14/23 06:55 09/14/23 06:55 Labs: Microbiology - Last 24 Hours (Table) 09/12/23 00:45 Urine Culture - Preliminary Urine,Voided Gram Neg Bacilli Assessment and Plan Assessment: -Metabolic encephalopathy likely related to urinary tract infection with source. Continue IV fluid resuscitation, continue patient on IV antibiotic in the form daptomycin 500 mg IV piggyback every 1224 hrs., check urine culture, blood culture, infectious disease consultation with Dr. Perales, continue IV fluid resuscitation in the form of normal saline at 75 cc an hour. -Paroxysmal Atrial fibrillation. Hold eliquis 5 mg po bid for today. Continue verapamil 120 mg daily. -Hypertension and hypertensive cardiovascular disease. Continue patient on hydrochlorothiazide 25 mg daily, losartan 100 mg daily, and verapamil 120 mg daily. -Hyperlipidemia. we will continue Zetia 10 mg po daily -Diabetes mellitus type 2. Continue patient on add NovoLog scale before meals and at bedtime, we will continue with Farxiga 10 mg po daily we will continue wi th Ozempic 0.5 mg subcutaneously every week., -Diabetic polyneuropathy. Continue Duloxetin 60 mg po daily continue pregabalin 50 mg orally twice every day for -Spondylosis of the lumbar spine with radiculopathy. Continue baclofen 10 mg 3 times daily as needed. -Idiopathic gout. Continue allopurinol 100 mg daily. -Obstructive sleep apnea. Continue CPAP. -DVT prophylaxis. Hold Apixaban 5 mg po bid. -CODE STATUS full code.
--- NOTE | 2023-09-14 17:55 | P.PN ---
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 Patient was brought into the emergency department at [facility] yesterday with mental status changes while she was living at her assisted living facility, patient became quite confused and her daughter was suspicious for urinary tract infection, she was seen and evaluated in the emergency department, she did not have any leukocytosis, however her urine was quite positive, she was admitted to the hospital for acute urinary tract infection with SIRS along with metabolic encephalopathy, she was started initially on IV antibiotic in the form of gentamicin this was taken off, and because of her multiple allergies and her prior culture showed Enterococcus, patient was placed on an antibiotic in the form of daptomycin 500 mg by piggyback every 24 hours, urine culture and blood culture were sent, infectious disease consultation was obtained 09/14/2023 --patient is seen and evaluated in room at bedside; remains to be afebrile, patient is breathing comfortably on room air and no need for supplemental oxygen, the patient denies chest pain shortness of breath or cough, patient denies abdominal pain and no nausea vomiting or diarrhea, patient mention improvement in her urinary symptoms Lab review shows white count is 4.8, creatinine 0.75 urine grew E. coli patient presented to the hospital with mental status changes in this patient who did have a history of recurrent UTI and did have low-grade fever positive UA suspicious for symptomatic urinary tract infection last urine culture positive for Enterococcus faecalis -patient with multiple antibiotic ALLERGIES that would limit the number of antibiotic safe to use -patient did have some clinical improvement urine is now growing gram-negative we will discontinue daptomycin and start the patient on Azactam and wait for the culture to finalize Objective - Vital Signs Vital signs: Vital Signs Temp 98.4 F 09/14/23 08:00 Pulse 76 09/14/23 08:00 Resp 18 09/14/23 08:00 BP 147/76 09/14/23 08:00 Pulse Ox 95 09/14/23 09:42 FiO2 Intake & Output 09/13/23 09/14/23 09/14/23 18:59 06:59 18:59 Intake Total 800 1540 Output Total 600 1000 700 Balance 200 540 -700 Intake: Intake, IV Titration 950 Amount DAPTOmycin 400 mg In 50 Sodium Chloride 0.9% 50 ml @ 100 mls/hr IVPB Q24H [facility] Rx#:[id number] Sodium Chloride 0.9% 1, 900 000 ml @ 75 mls/hr IV . [id number] [facility] Rx#:[id number] Oral 800 590 Output: Urine 600 1000 700 Other: Voiding Method Diaper Diaper Diaper Incontinent Incontinent Incontinent External Catheter External Catheter External Catheter # Voids 1 # Bowel Movements 1 - Exam Gen: This is an 83-year-old obese female appears confused HEENT: Head is atraumatic, normocephalic. Pupils equal, round. Sclerae is anicteric. NECK: Supple. No JVD. No lymphadenopathy. No thyromegaly. LUNGS: Clear to auscultation. No wheezes or rhonchi. No intercostal ret ractions. HEART: First heart sound is depressed, second heart sound is normal, 2/6 systolic ejection murmur at the left sternal border. ABDOMEN: Soft, mild tenderness to the epigastric area, no rebound or guarding positive bowel sounds EXTREMITIES: No pedal edema. No calf tenderness, DP+2 bilaterally. NEUROLOGICAL: Patient is awake, alert and oriented to person and place, CN II- XII are grossly intact muscle power 4/5 in bilateral upper and lower extremities. - Labs CBC & Chem 7: 09/14/23 06:55 09/14/23 06:55 Labs: Abnormal Lab Results - Last 24 Hours (Table) 09/14/23 09/14/23 Range/Units 06:55 06:55 Hgb 10.4 L (11.4-16.0) gm/dL Hct 33.9 L (34.0-46.0) % MCHC 30.7 L (31.0-37.0) g/dL RDW 15.8 H (11.5-15.5) % Lymphocytes # 0.8 L (1.0-4.8) k/uL Chloride 109 H (98-107) mmol/L Glucose 107 H (74-99) mg/dL Microbiology - Last 24 Hours (Table) 09/12/23 10:45 Blood Culture - Preliminary Blood 09/12/23 00:45 Urine Culture - Preliminary Urine,Voided Gram Neg Bacilli Assessment and Plan Assessment: -Metabolic encephalopathy likely related to urinary tract infection with source. Continue IV fluid resuscitation, continue patient on IV antibiotic in the form daptomycin 500 mg IV piggyback every 1224 hrs., check urine culture, blood culture, infectious disease consultation with Dr. Perales, continue IV fluid resuscitation in the form of normal saline at 75 cc an hour. -Paroxysmal Atrial fibrillation. Hold eliquis 5 mg po bid for today. Continue verapamil 120 mg daily. -Hypertension and hypertensive cardiovascular disease. Continue patient on hydrochlorothiazide 25 mg daily, losartan 100 mg daily, and verapamil 120 mg daily. -Hyperlipidemia. we will continue Zetia 10 mg po daily -Diabetes mellitus type 2. Continue patient on add NovoLog scale before meals and at bedtime, we will continue with Farxiga 10 mg po daily we will continue with Ozempic 0.5 mg subcutaneously every week., -Diabetic polyneuropathy. Continue Duloxetin 60 mg po daily continue pregabalin 50 mg orally twice every day for -Spondylosis of the lumbar spine with radiculopathy. Continue baclofen 10 mg 3 times daily as needed. -Idiopathic gout. Continue allopurinol 100 mg daily. -Obstructive sleep apnea. Continue CPAP. -DVT prophylaxis. Hold Apixaban 5 mg po bid. -CODE STATUS full code.
[2023-09-14 20:26] VITALS: RESP 16
[2023-09-15] MEDS: BACLOFEN 10 MG TAB PO PRN (02:09)
[2023-09-15 08:19] VITALS: BP 153/69; PULSE 63; TEMP 97.8
[2023-09-15 08:43] LABS: Basophils # (A) 0.02 X 10*3/uL (0.00-0.10); Basophils % (A) 0.4 %; Eosinophils # (A) 0.43 X 10*3/uL (0.04-0.35); Eosinophils % (A) 8.7 %; HCT 32.5 % (37.2-46.3); HGB 9.9 g/dL (12.0-15.0); Lymphocytes # (A) 0.75 X 10*3/uL (0.90-5.00); Lymphocytes % (A) 15.1 %; MCH 26.1 pg (27.0-32.0); MCHC 30.5 g/dL (32.0-37.0); MCV 85.5 FL (80.0-97.0); Mean Platelet Volume 11.4 FL (9.5-12.2); Monocytes # (A) 0.62 X 10*3/uL (0.20-1.00); Monocytes % (A) 12.5 %; NRBC Per 100 WBC 0 X 10*3/uL (0.00-0.01); Neutrophils # (A) 3.14 X 10*3/uL (1.80-7.70); Neutrophils % (A) 63.1 %; Platelet Count 203 X 10*3/uL (140-440); RDW 15.4 % (11.5-14.5); WBC 4.97 X 10*3/uL (4.50-10.00)
[2023-09-15 09:03] LABS: BUN/Creat Ratio 14.62 Ratio (12.00-20.00); Blood Urea Nitrogen 11.7 mg/dL (9.0-27.0); Calcium 8.3 mg/dL (8.7-10.3); Carbon Dioxide 25.3 mmol/L (21.6-31.8); Chloride 108 mmol/L (96-109); Glucose 102 mg/dL (70-110); Potassium 4.2 mmol/L (3.5-5.5); Sodium 142 mmol/L (135-145)
--- NOTE | 2023-09-15 12:36 | P.PN ---
Subjective Progress Note Date: 09/15/23 Principal diagnosis: Reason for follow-up is urinary tract infection Patient is a 83-year-old female with a past medical history significant for diabetes mellitus hypertension reflux fibromyalgia atrial fibrillation presenting to the hospital for evaluation of mental status changes from the assisted living facility patient was noted to be quite confused, did have a positive UA and some urinary symptoms concerning for symptomatic urinary tract infection. On today's evaluation that is 09/15/2023, the patient continues to be afebrile, patient is breathing comfortably on room air, the patient denies chest pain shortness of breath and no significant cough, patient denies nausea no vomiting, no abdominal pain and no diarrhea. Patient white count is 4.97, creatinine 0.8, Urine has been finalized with E. coli that is sensitive to Macrobid Objective - Vital Signs Vital signs: Vital Signs Temp 97.8 F 09/15/23 07:58 Pulse 63 09/15/23 07:58 Resp 16 09/15/23 07:58 BP 153/69 09/15/23 07:58 Pulse Ox 97 09/15/23 07:58 FiO2 Intake & Output 09/14/23 09/15/23 09/15/23 18:59 06:59 18:59 Intake Total 1000 Output Total 1200 900 Balance -200 -900 Intake: Intake, IV Titration 1000 Amount Aztreonam 2 gm In Sodium 100 Chloride 0.9% 100 ml @ 33 .3 mls/hr IVPB Q12HR [facility] Rx#:[id number] Sodium Chloride 0.9% 1, 900 000 ml @ 75 mls/hr IV . [id number] [facility] Rx#:[id number] Output: Urine 1200 900 Other: Voiding Method Diaper Diaper Incontinent Incontinent External Catheter External Catheter - Exam GENERAL DESCRIPTION: An elderly female lying in bed in no distress RESPIRATORY SYSTEM: Unlabored breathing , decreased breath sounds at bases HEART: S1 S2 regular rate and rhythm , ABDOMEN: Soft , no tenderness EXTREMITIES: Right knee incision looks clean no swelling no redness no drainage - Labs CBC & Chem 7: 09/15/23 05:58 09/15/23 05:58 Labs: Abnormal Lab Results - Last 24 Hours (Table) 09/15/23 09/15/23 Range/Units 05:58 05:58 RBC 3.80 L (4.10-5.20) X 10*6/uL Hgb 9.9 L (12.0-15.0) g/dL Hct 32.5 L (37.2-46.3) % MCH 26.1 L (27.0-32.0) pg MCHC 30.5 L (32.0-37.0) g/dL RDW 15.4 H (11.5-14.5) % Lymphocytes # 0.75 L (0.90-5.00) X 10*3/uL Eosinophils # 0.43 H (0.04-0.35) X 10*3/uL Calcium 8.3 L (8.7-10.3) mg/dL Microbiology - Last 24 Hours (Table) 09/12/23 10:45 Blood Culture - Preliminary Blood 09/12/23 00:45 Urine Culture - Final Urine,Voided Escherichia coli Assessment and Plan (1) Allergy to multiple antibiotics Current Visit: No Status: Acute Code(s): Z88.1 - ALLERGY STATUS TO OTHER ANTIBIOTIC AGENTS SNOMED Code(s): 044853087 (2) UTI (urinary tract infection) Current Visit: No Status: Acute Code(s): N39.0 - URINARY TRACT INFECTION, SITE NOT SPECIFIED SNOMED Code(s): 33600032 Plan: 1patient presented to the hospital with mental status changes in this patient who did have a history of recurrent UTI and did have low-grade fever positive UA suspicious for symptomatic urinary tract infection last urine culture positive for Enterococcus faecalis 2-patient with multiple antibiotic ALLERGIES that would limit the number of antibiotic safe to use 3-patient did have some clinical improvement urine grew E. coli that is sensitive to Azactam with the patient was on and also Macrobid patient wants to go home to follow-up with her surgeon tomorrow prescription for Macrobid has been sent to the pharmacy Dictation was produced using [employer] dictation software. please excuse any grammatical, word or spelling errors. Time with Patient: Less than 30
--- NOTE | 2023-09-15 12:45 | P.DS ---
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 Patient was brought into the emergency department at [facility] yesterday with mental status changes while she was living at her assisted living facility, patient became quite confused and her daughter was suspicious for urinary tract infection, she was seen and evaluated in the emergency department, she did not have any leukocytosis, however her urine was quite positive, she was admitted to the hospital for acute urinary tract infection with SIRS along with metabolic encephalopathy, she was started initially on IV antibiotic in the form of gentam icin this was taken off, and because of her multiple allergies and her prior culture showed Enterococcus, patient was placed on an antibiotic in the form of daptomycin 500 mg by piggyback every 24 hours, urine culture and blood culture were sent, infectious disease consultation was obtained 09/14/2023 --patient is seen and evaluated in room at bedside; remains to be afebrile, patient is breathing comfortably on room air and no need for supplemental oxygen, the patient denies chest pain shortness of breath or cough, patient denies abdominal pain and no nausea vomiting or diarrhea, patient mention improvement in her urinary symptoms Lab review shows white count is 4.8, creatinine 0.75 urine grew E. coli patient presented to the hospital with mental status changes in this patient who did have a history of recurrent UTI and did have low-grade fever positive UA suspicious for symptomatic urinary tract infection last urine culture positive for Enterococcus faecalis -patient with multiple antibiotic ALLERGIES that would limit the number of antibiotic safe to use -patient did have some clinical improvement urine is now growing gram-negative we will discontinue daptomycin and start the patient on Azactam and wait for the culture to finalize discharge Diagnoses: 1. Metabolic encephalopathy likely related to urinary tract infection with source. 2. E.Coli UTI with SIRS 3. Paroxysmal Atrial fibrillation. 4. Hypertension and hypertensive cardiovascular disease. 5. Hyperlipidemia. 6. Diabetes mellitus type 2. 7. Diabetic polyneuropathy. 8. 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 9. Idiopathic gout. 10. Obstructive sleep apnea. Patient Condition at Discharge: Stable Plan - Discharge Summary Discharge Rx Participant: Yes New Discharge Prescriptions: New Nitrofurantoin Monohyd/M-Cryst [Macrobid] 100 mg PO Q12HR #14 cap No Action allopurinoL [Zyloprim] 100 mg PO DAILY Losartan Potassium [Cozaar] 100 mg PO DAILY Apixaban [Eliquis] 5 mg PO BID #60 tab Multivit-Min/Iron/Folic/Lutein [Centrum Silver Women Tablet] 1 tab PO DAILY Ezetimibe [Zetia] 10 mg PO DAILY Dapagliflozin Propanediol [Farxiga] 10 mg PO DAILY Furosemide [Lasix] 20 mg PO DAILY PRN PRN Reason: Edema Famotidine [Pepcid] 40 mg PO HS PRN PRN Reason: acid reflux hydroCHLOROthiazide [Hydrodiuril] 25 mg PO DAILY Melatonin 10 mg PO HS PRN PRN Reason: Insomnia Vitamin B Complex 1 cap PO DAILY Cholecalciferol [Vitamin D3 (25 Mcg = 1000 Iu)] 25 mcg PO DAILY DULoxetine HCL [Cymbalta] 60 mg PO HS Verapamil HCl [Verapamil ER] 120 mg PO DAILY Semaglutide [Ozempic] 0.5 mg SQ Th Azo D-Mannose 500mg 2,000 mg PO DAILY Acetaminophen Tab [Tylenol] 650 mg PO Q6H PRN PRN Reason: Pain Or Fever > 100.5 HYDROcodone/APAP 10-325MG [[place] 10-325] 1 tab PO Q8H PRN PRN Reason: Pain L.acidoph,Paracasei, B.lactis [Probiotic] 1 cap PO DAILY Potassium Chloride [Klor-Con M10] 10 meq PO DAILY PRN PRN Reason: take with furosemide Pregabalin [Lyrica] 200 mg PO BID Ubidecarenone [Coenzyme Q10] 200 mg PO DAILY Discharge Medication List allopurinoL [Zyloprim] 100 mg PO DAILY 09/21/20 [History] Cholecalciferol [Vitamin D3 (25 Mcg = 1000 Iu)] 25 mcg PO DAILY 11/04/22 [History] Losartan Potassium [Cozaar] 100 mg PO DAILY 11/04/22 [History] Vitamin B Complex 1 cap PO DAILY 11/04/22 [History] Apixaban [Eliquis] 5 mg PO BID #60 tab 11/13/22 [Rx] DULoxetine HCL [Cymbalta] 60 mg PO HS 01/03/23 [History] Multivit-Min/Iron/Folic/Lutein [Centrum Silver Women Tablet] 1 tab PO DAILY 01/03/23 [History] Dapagliflozin Propanediol [Farxiga] 10 mg PO DAILY 07/17/23 [History] Ezetimibe [Zetia] 10 mg PO DAILY 07/17/23 [History] Furosemide [Lasix] 20 mg PO DAILY PRN 07/17/23 [History] Verapamil HCl [Verapamil ER] 120 mg PO DAILY 07/17/23 [History] Semaglutide [Ozempic] 0.5 mg SQ Th 07/28/23 [Rx] Acetaminophen Tab [Tylenol] 650 mg PO Q6H PRN 09/12/23 [History] Azo D-Mannose 500mg 2,000 mg PO DAILY 09/12/23 [History] Famotidine [Pepcid] 40 mg PO HS PRN 09/12/23 [History] HYDROcodone/APAP 10-325MG [[place] 10-325] 1 tab PO Q8H PRN 09/12/23 [History] L.acidoph,Paracasei, B.lactis [Probiotic] 1 cap PO DAILY 09/12/23 [History] Melatonin 10 mg PO HS PRN 09/12/23 [History] Potassium Chloride [Klor-Con M10] 10 meq PO DAILY PRN 09/12/23 [History] Pregabalin [Lyrica] 200 mg PO BID 09/12/23 [History] Ubidecarenone [Coenzyme Q10] 200 mg PO DAILY 09/12/23 [History] hydroCHLOROthiazide [Hydrodiuril] 25 mg PO DAILY 09/12/23 [History] Nitrofurantoin Monohyd/M-Cryst [Macrobid] 100 mg PO Q12HR #14 cap 09/15/23 [Rx] Follow up Appointment(s)/Referral(s): Olya Austin MD [Primary Care Provider] - 1-2 days
[2023-09-18] MEDS ORDERED: Semaglutide [Ozempic] 0.5 MG SQ SCH (09:00)
== END 2023-09-15 17:16 | disposition home health service (06) ==
LOC: EC 19:59 → OBSVTOIN 09-12 03:57 → 5NMEDONC 09-12 03:57 → INTOOBSV 09-12 03:57 → 5NMEDONC 09-12 17:45 → UNDODISIN 09-15 17:16
PROVIDERS: ADMIT Internal Medicine; ATTEND Internal Medicine
DX: G93.41 Metabolic encephalopathy (principal); N39.0 Urinary tract infection, site not specified; B96.20 Unspecified Escherichia coli [E. coli] as the cause of diseases classified elsewhere; I48.0 Paroxysmal atrial fibrillation; I11.9 Hypertensive heart disease without heart failure; K21.9 Gastro-esophageal reflux disease without esophagitis; E78.5 Hyperlipidemia, unspecified; E11.42 Type 2 diabetes mellitus with diabetic polyneuropathy; G47.33 Obstructive sleep apnea (adult) (pediatric); M47.26 Other spondylosis with radiculopathy, lumbar region; M10.00 Idiopathic gout, unspecified site; Z86.73 Personal history of transient ischemic attack (TIA), and cerebral infarction without residual deficits; Z79.4 Long term (current) use of insulin; Z79.84 Long term (current) use of oral hypoglycemic drugs; Z79.85 Long-term (current) use of injectable non-insulin antidiabetic drugs; Z79.899 Other long term (current) drug therapy; Z88.0 Allergy status to penicillin; Z88.1 Allergy status to other antibiotic agents
CPT/HCPCS: 96361 ×2; 96366 ×3; 96367 ×2; 96365; 96375; 99285; 36415; 94760 ×2; 93005; 83880; 80053; 80048 ×2; 83605; 83735; 84100; 84484; 85025 ×3; 85610; 85730; 81001; 87040; 80170; 87086; 87077; 87186; G0378 ×4; J2060; J1580; J0878 ×2; J0457 ×2

== ENCOUNTER → 2024-03-16 | Outpatient (CLI) | payer MEDICARE, OTHER ==
--- NOTE | 2024-04-08 15:31 | CT ---
EXAMINATION TYPE: CT lumbar spine wo con CT DLP: 1582.80 mGycm, Automated exposure control for dose reduction was used. DATE OF EXAM: 03/16/2024 COMPARISON: CT urogram 09/09/2023. CLINICAL INDICATION: Female, 83 year old with history of low back pain. TECHNIQUE: Multiple axial images were obtained from the midportion of T11 through the sacroiliac joints. Soft tissue and bone windows in coronal and sagittal planes were obtained and reviewed. Delayed interpretation due to institution cyber attack. Contrast used: none. Oral contrast used: none. FINDINGS: Alignment: There are 5 lumbar type vertebral bodies mild retrolisthesis of L2 on L3 and L3 on L4. Grade 1 anterolisthesis of L4 on L5. Postsurgical change of laminectomy involving L2-L5. Soft tissue is identified within the laminectomy regions. Marked levocurvature of the lumbar spine with apex at L2-L3. Bone: No evidence of fracture is identified. Multilevel hypertrophic facet arthropathy. Mild degenerative changes both SI joints. Discs: Multilevel degenerative disc disease with disc space narrowing, endplate sclerosis, vacuum disc disease, and osteophytosis. This primarily from the L1-S1 levels. T12-L1: No spinal canal or neural foraminal stenosis is identified. L1-L2: Broad-based disc bulge without significant central canal stenosis suggested. Mild left and moderate right neuroforaminal stenosis secondary to facet arthropathy. L2-L3: Mild retrolisthesis with no significant central canal stenosis. Postsurgical changes from laminectomy. Mild left and ububucrt-ry-jjoxin right neural foraminal stenosis secondary to facet arthropathy. L3-L4: Mild retrolisthesis with no significant central canal stenosis. Postsurgical changes from laminectomy. Moderate left and lnfgbvzo-ev-epdosm right neural foraminal stenosis secondary to facet arthropathy. L4-L5: Grade 1 anterolisthesis with uncovering of the disc. Postsurgical changes from laminectomy. No significant central canal stenosis. Mild left and moderate right neural foraminal stenosis secondary to facet arthropathy. L5-S1: Postsurgical changes from laminectomy without significant central canal stenosis. No right neural foraminal stenosis. Severe left neuroforaminal stenosis secondary to facet arthropathy. Other: Sigmoid diverticulosis. Tortuosity of the abdominal aorta with mild atherosclerotic calcification. Partial visualization of spinal stimulator leads at T10-T11. IMPRESSION: 1. No evidence for spinal fracture. 2. Postsurgical changes of the lumbar spine from laminectomy involving L2-L5. 3. No significant central canal stenosis. Varying degrees of neural foraminal stenosis secondary to multilevel facet arthropathy as described above. 4. 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 MTDD
== END | disposition home or self-care (01) ==
LOC: RADCTMAIN 15:12
PROVIDERS: ATTEND Orthopaedic Surgery Orthopaedic Surgery of the Spine
DX: M51.36 Other intervertebral disc degeneration, lumbar region (principal); M47.816 Spondylosis without myelopathy or radiculopathy, lumbar region; M48.061 Spinal stenosis, lumbar region without neurogenic claudication; M43.16 Spondylolisthesis, lumbar region
CPT/HCPCS: 72131

== ENCOUNTER 2024-04-01 12:58 | Inpatient (IN) | payer MEDICARE, OTHER ==
[~2024-04-01 12:58] MED LIST changes: -ACETAMINOPHEN TAB 500 MG TAB PO PRN; -DEXAMETHASONE SOD PHOSPHATE 10 MG/ML 1 ML VIAL IV PRN; -DEXAMETHASONE SOD PHOSPHATE 4 MG/ML 1 ML VIAL IV ONE; -DOCUSATE 100 MG CAP PO PRN; -FAMOTIDINE 20 MG/2 ML VIAL IVP PRN; -HYDROmorphone 0.5 MG/0.5 ML SYRINGE IVP PRN; -KETOROLAC 15 MG/ML 1 ML VIAL IVP PRN; -LIDOCAINE 1% (10MG/ML) FOR IV START INTRADERMA PRN; +LORazepam 2 MG/ML INJ ONE; -MIDAZOLAM 2 MG/2 ML VIAL IV PRN; +MORPHINE SULFATE 4 MG/ML SYRINGE ONE; -ONDANSETRON 4 MG/2 ML VIAL IVP ONE; -ONDANSETRON 4 MG/2 ML VIAL IVP PRN; +ONDANSETRON 4 MG/2 ML VIAL ONE; +SODIUM CHLORIDE 0.9% 1,000 ML BAG ONE; +SODIUM CHLORIDE 0.9% 50 ML BAG ONE; -TRANEXAMIC 1,000 MG/100ML-NACL 1,000 MG in SALINE 1 100ML.BAG IV PRN; -TRANEXAMIC 1,000 MG/100ML-NACL 1,000 MG in SALINE 1 100ML.BAG IVPB PRN; -oxyCODONE ER 10 MG TAB.ER.12H PO PRN
[2024-04-01] MEDS ORDERED: cefTRIAXone IN SWFI 1,000 MG/10 ML SYRINGE IVP ONE (13:43)
[2024-04-01] MEDS ORDERED: APIXABAN 5 MG TAB ONE (20:37)
[2024-04-01] MEDS ORDERED: MELATONIN 3 MG TABLET ONE (20:37)
[2024-04-02] MEDS ORDERED: SODIUM CHLORIDE 0.9% 50 ML BAG ONE (00:01)
[2024-04-02] MEDS ORDERED: ACETAMINOPHEN TAB 325 MG TAB ONE ×2 (06:39→14:38)
[2024-04-02] MEDS ORDERED: APIXABAN 5 MG TAB ONE ×2 (07:59→21:08)
[2024-04-02] MEDS ORDERED: DULoxetine HCL 60 MG CAPSULE.DR PO ONE (07:59)
[2024-04-02] MEDS ORDERED: cefTRIAXone 1 GM VIAL ONE (08:00)
[2024-04-02] MEDS ORDERED: ZINC OXIDE PASTE (Z-GUARD) 1 APPLIC TOPICAL ONE (11:46)
[2024-04-02] MEDS ORDERED: MAGNESIUM SULFATE-D5W PMX 100 ML IVPB ONE ×2 (18:39→21:09)
[2024-04-02] MEDS ORDERED: POTASSIUM CHLORIDE ER 20 MEQ TAB.ER PO ONE ×2 (18:39→21:08)
[2024-04-02] MEDS ORDERED: LORazepam 2 MG/ML INJ ONE (18:40)
[2024-04-02] MEDS ORDERED: QUEtiapine 25 MG TAB ONE (21:09)
[2024-04-02] MEDS ORDERED: MELATONIN 3 MG TABLET ONE (21:09)
[2024-04-03] MEDS ORDERED: SODIUM CHLORIDE 0.9% 50 ML BAG ONE (00:01)
[2024-04-03] MEDS ORDERED: POTASSIUM CHLORIDE ER 20 MEQ TAB.ER PO ONE (03:01)
[2024-04-03] MEDS ORDERED: DULoxetine HCL 60 MG CAPSULE.DR PO ONE (09:01)
[2024-04-03] MEDS ORDERED: cefTRIAXone 1 GM VIAL ONE (09:02)
[2024-04-03] MEDS ORDERED: HYDROcodone/APAP 10-325MG 1 EACH TAB ONE (11:58)
[2024-04-03] MEDS ORDERED: NALOXONE 0.4 MG/ML 1 ML VIAL IV PRN (14:30)
[2024-04-03] MEDS ORDERED: NYSTATIN 100,000 UNIT/GM POWD 15 GM TOPICAL PRN (16:06)
[2024-04-03] MEDS ORDERED: QUEtiapine 25 MG TAB ONE (20:41)
[2024-04-03] MEDS ORDERED: MELATONIN 3 MG TABLET ONE (20:41)
[2024-04-03] MEDS ORDERED: ALPRAZolam 0.5 MG TAB ONE (20:43)
[2024-04-04] MEDS ORDERED: ONDANSETRON 4 MG/2 ML VIAL IVP PRN
[2024-04-04] MEDS ORDERED: ALPRAZolam 0.25 MG TAB PO PRN
[2024-04-04] MEDS ORDERED: DEXTROSE 50% SYRINGE 50 ML IVP PRN ×2
[2024-04-04] MEDS: Magnesium Replacement Protocol 1 EACH MISC MISCELLANE ONE (05:40)
[2024-04-04] MEDS: Potassium Replacement Protocol 1 EACH MISC MISCELLANE ONE (05:40)
[2024-04-04] MEDS: SODIUM CHLORIDE 0.9% 1,000 ML IV SCH (05:41)
[2024-04-04 05:45] LABS: Anisocytosis Slight; HGB 13.3 gm/dL (11.4-16.0); Hypochromasia Moderate; MCH 26.9 pg (25.0-35.0); MCHC 31.6 g/dL (31.0-37.0); Mean Platelet Volume 8.5; Platelet Count 181 k/uL (150-450); RBC 4.94 m/uL (3.80-5.40); RDW 16.3 % (11.5-15.5); WBC 6.6 k/uL (3.8-10.6)
[2024-04-04 06:16] LABS: ALT 18 U/L (4-34); AST 37 U/L (14-36); African American GFR (CKD) 87 (>60 ml/min/1.73 sqM); Albumin 3.9 g/dL (3.5-5.0); Albumin/Globulin Ratio 1.7; Alkaline Phosphatase 55 U/L (38-126); Anion Gap 9 mmol/L; Blood Urea Nitrogen 13 mg/dL (7-17); Calcium 9.4 mg/dL (8.4-10.2); Carbon Dioxide 21 mmol/L (22-30); Chloride 110 mmol/L (98-107); Globulin 2.3 g/dL; Glucose 121 mg/dL (74-99); Magnesium 1.7 mg/dL (1.6-2.3); Non-African American GFR(CKD) 75 (>60 ml/min/1.73 sqM); Potassium 3.5 mmol/L (3.5-5.1); Sodium 140 mmol/L (137-145); Total Bilirubin 0.7 mg/dL (0.2-1.3); Total Protein 6.2 g/dL (6.3-8.2)
[2024-04-04] MEDS: INSULIN ASPART (NovoLOG) 100 UNIT/ML VIAL SQ SCH (08:39)
[2024-04-04] MEDS: ZINC OXIDE PASTE (Z-GUARD) 1 APPLIC TOPICAL SCH (09:04)
[2024-04-04] MEDS: APIXABAN 5 MG TAB PO SCH (09:04)
[2024-04-04] MEDS: DULoxetine HCL 60 MG CAPSULE.DR PO SCH (09:04)
[2024-04-04] MEDS ORDERED: HYDROcodone/APAP 10-325MG 1 EACH TAB PO PRN (10:32)
[2024-04-04] MEDS ORDERED: FAMOTIDINE 20 MG TAB PO PRN (10:32)
[2024-04-04] MEDS ORDERED: DIPHENOX-ATROP 2.5-0.025 MG 1 EACH TAB PO PRN (11:46)
[2024-04-04 12:10] LABS: Glucose,Whole Blood 116 mg/dL (70-110)
[2024-04-04] MEDS: DIPHENOX-ATROP 2.5-0.025 MG 1 EACH TAB PO PRN (12:11)
[2024-04-04 17:09] LABS: Glucose,Whole Blood 108 mg/dL (70-110)
[2024-04-04] MEDS: QUEtiapine 25 MG TAB PO SCH (19:51)
[2024-04-04] MEDS: MELATONIN 3 MG TABLET PO SCH (19:51)
[2024-04-04] MEDS: PREGABALIN 100 MG CAP PO SCH (19:51)
[2024-04-04 20:30] LABS: Glucose,Whole Blood 135 mg/dL (70-110)
--- NOTE | 2024-04-04 21:31 | P.PN ---
Subjective Progress Note Date: 04/04/24 Principal diagnosis: Reason for follow-up is UTI and multiple antibiotic allergies Patient is a 83-year-old female with multiple comorbidities presenting to the hospital with mental status changes did have a positive UA concerning for a symptomatic UTI with multiple antibiotic allergies prompting this consultation. On today's evaluation that is 04/04/2024,the patient is more awake and alert today denies any fever or any chills, patient is breathing comfortably on room air, the patient denies chest pain shortness of breath and no significant cough, patient denies abdominal pain, no nausea vomiting or diarrhea. Patient white count is 6.6, creatinine 0.75 Objective - Vital Signs Vital signs: Vital Signs Temp 98.1 F 04/04/24 13:14 Pulse 81 04/04/24 13:14 Resp 19 04/04/24 13:14 BP 160/88 04/04/24 13:14 Pulse Ox 96 04/04/24 13:14 FiO2 Intake & Output 04/03/24 04/04/24 04/04/24 18:59 06:59 18:59 Weight 95.5 kg Other: Voiding Method Incontinent # Voids 1 1 # Bowel Movements 1 2 - Exam GENERAL DESCRIPTION: An elderly female lying in bed in no distress RESPIRATORY SYSTEM: Unlabored breathing , decreased breath sounds at bases HEART: S1 S2 regular rate and rhythm , ABDOMEN: Soft , no tenderness EXTREMITIES: No edema feet - Labs CBC & Chem 7: 04/04/24 04:43 04/04/24 04:43 Labs: Abnormal Lab Results - Last 24 Hours (Table) 04/04/24 04/04/24 04/04/24 Range/Units 04:43 04:43 12:07 RDW 16.3 H (11.5-15.5) % Chloride 110 H (98-107) mmol/L Carbon Dioxide 21 L (22-30) mmol/L Glucose 121 H (74-99) mg/dL POC Glucose (mg/dL) 116 H (70-110) mg/dL AST 37 H (14-36) U/L Total Protein 6.2 L (6.3-8.2) g/dL Assessment and Plan (1) Allergy to multiple antibiotics Current Visit: No Status: Acute Code(s): Z88.1 - ALLERGY STATUS TO OTHER ANTIBIOTIC AGENTS SNOMED Code(s): 114749529 (2) UTI (urinary tract infection) Current Visit: No Status: Acute Code(s): N39.0 - URINARY TRACT INFECTION, SITE NOT SPECIFIED SNOMED Code(s): 55029458 Plan: 1patient presented to hospital mental status change which is multifactorial did have a positive UA concerning for a urinary tract infection with urine culture currently pending 2patient with multiple antibiotic ALLERGIES that would limit the number of antibiotic safe to use 3patient will be treated with Rocephin while waiting for the culture to finalize Daughter at the bedside questions were answered Dictation was produced using [employer] dictation software. please excuse any grammatical, word or spelling errors. Time with Patient: Less than 30
[2024-04-05 07:30] LABS: Glucose,Whole Blood 115 mg/dL (70-110)
[2024-04-05] MEDS ORDERED: NON FORMULARY DRUG (Vitamin B Complex [Vitamin B Complex] 1 EACH Capsule) PO SCH (09:00)
[2024-04-05] MEDS ORDERED: AZO D MANNOSE PO SCH (09:00)
[2024-04-05 09:10] LABS: Basophils # (A) 0.02 X 10*3/uL (0.00-0.10); Basophils % (A) 0.4 %; Eosinophils # (A) 0.28 X 10*3/uL (0.04-0.35); Eosinophils % (A) 5.3 %; HCT 42.1 % (37.2-46.3); Lymphocytes # (A) 0.81 X 10*3/uL (0.90-5.00); Lymphocytes % (A) 15.4 %; MCH 26.4 pg (27.0-32.0); MCHC 30.9 g/dL (32.0-37.0); MCV 85.6 FL (80.0-97.0); Mean Platelet Volume 11.5 FL (9.5-12.2); Monocytes # (A) 0.76 X 10*3/uL (0.20-1.00); Monocytes % (A) 14.4 %; NRBC Per 100 WBC 0 X 10*3/uL (0.00-0.01); Neutrophils # (A) 3.38 X 10*3/uL (1.80-7.70); Neutrophils % (A) 64.1 %; Platelet Count 190 X 10*3/uL (140-440); RBC 4.92 X 10*6/uL (4.10-5.20); RDW 17.2 % (11.5-14.5); WBC 5.27 X 10*3/uL (4.50-10.00)
[2024-04-05 09:18] LABS: ALT 17 U/L (8-44); AST 22 U/L (13-35); Albumin 3.8 g/dL (3.8-4.9); Alkaline Phosphatase 48 U/L (41-126); BUN/Creat Ratio 18.62 Ratio (12.00-20.00); Blood Urea Nitrogen 14.9 mg/dL (9.0-27.0); Calcium 8.9 mg/dL (8.7-10.3); Chloride 109 mmol/L (96-109); Glucose 125 mg/dL (70-110); Potassium 3.6 mmol/L (3.5-5.5); Sodium 142 mmol/L (135-145); Total Bilirubin 0.3 mg/dL (0.3-1.2); Total Protein 5.8 g/dL (6.2-8.2)
[2024-04-05] MEDS: VERAPAMIL SR 120 MG TABLET.ER PO SCH (10:03)
[2024-04-05] MEDS: MULTIVITAMINS, THERA 1 EACH TAB PO SCH (10:03)
[2024-04-05] MEDS: allopurinoL 100 MG TAB PO SCH (10:04)
[2024-04-05] MEDS: CHOLECALCIFEROL 25 MCG (1000 IU) TABLET PO SCH (10:04)
[2024-04-05] MEDS: hydroCHLOROthiazide 25 MG TAB PO SCH (10:04)
[2024-04-05] MEDS: LACTOBACILLUS ACIDOPHILUS/PECT 1 EACH CAPSULE PO SCH (10:04)
[2024-04-05] MEDS: LOSARTAN 50 MG TAB PO SCH (10:04)
[2024-04-05] MEDS: ACETAMINOPHEN TAB 325 MG TAB PO PRN (10:48)
[2024-04-05 12:03] LABS: Glucose,Whole Blood 171 mg/dL (70-110)
[2024-04-05] MEDS: CEFDINIR 300 MG CAP PO SCH (13:02)
[2024-04-05 17:08] LABS: Glucose,Whole Blood 123 mg/dL (70-110)
[2024-04-05 20:34] LABS: Glucose,Whole Blood 138 mg/dL (70-110)
[2024-04-05 22:23] LABS: Appearance,Urine Cloudy (Clear); Bacteria,Urine Occasional /hpf; Bilirubin,Urine Negative (Negative); Blood,Urine Large (Negative); Color,Urine Yellow; Glucose,Urine (UA) Negative (Negative); Ketones,Urine Negative (Negative); Leukocyte Esterase,Urine Moderate (Negative); Mucus,Urine Occasional /hpf; Nitrite,Urine Negative (Negative); PH, Urine 5.5 (5.0-8.0); Protein,Urine Trace (Negative); RBC,Urine >182 /hpf (0-5); Specific Gravity,Urine 1.016 (1.001-1.035); Squamous Epithelial Cell,Urine 4 /hpf (0-4); Urobilinogen,Urine <2.0 mg/dL (<2.0); WBC,Urine 26 /hpf (0-5)
[2024-04-06 07:25] LABS: Glucose,Whole Blood 127 mg/dL (70-110)
--- NOTE | 2024-04-06 09:34 | P.PN ---
Subjective Progress Note Date: 04/05/24 Principal diagnosis: Reason for follow-up is UTI and multiple antibiotic allergies Patient is a 83-year-old female with multiple comorbidities presenting to the hospital with mental status changes did have a positive UA concerning for a symptomatic UTI with multiple antibiotic allergies prompting this consultation. On today's evaluation that is 04/05/2024,the patient remains to be afebrile, patient is on room air not requiring supplemental oxygen and denies any emmy rtness of breath no chest pain or cough.Patient denies having any nausea or vomiting, no abdominal pain and no diarrhea has been reported, patient has lost her IV site and nursing staff did have a hard time getting another IV. No lab draw today unfortunately no urine culture were done this admission though requested Objective - Vital Signs Vital signs: Vital Signs Temp 98.3 F 04/05/24 07:40 Pulse 86 04/05/24 07:40 Resp 17 04/05/24 07:40 BP 126/75 04/05/24 07:40 Pulse Ox 93 L 04/05/24 07:40 FiO2 Intake & Output 04/04/24 04/05/24 04/05/24 18:59 06:59 18:59 Intake Total 1620 Balance 1620 Intake: Oral 1620 Other: Voiding Method Incontinent Incontinent # Voids 1 3 # Bowel Movements 2 2 - Exam GENERAL DESCRIPTION: An elderly female lying in bed in no distress RESPIRATORY SYSTEM: Unlabored breathing , decreased breath sounds at bases HEART: S1 S2 regular rate and rhythm , ABDOMEN: Soft , no tenderness EXTREMITIES: No edema feet - Labs CBC & Chem 7: 04/05/24 06:08 04/05/24 06:08 Labs: Abnormal Lab Results - Last 24 Hours (Table) 04/04/24 04/05/24 04/05/24 Range/Units 20:16 06:08 06:08 MCH 26.4 L (27.0-32.0) pg MCHC 30.9 L (32.0-37.0) g/dL RDW 17.2 H (11.5-14.5) % Lymphocytes # 0.81 L (0.90-5.00) X 10*3/uL Carbon Dioxide 21.0 L (21.6-31.8) mmol/L Glucose 125 H (70-110) mg/dL POC Glucose (mg/dL) 135 H (70-110) mg/dL Total Protein 5.8 L (6.2-8.2) g/dL 04/05/24 04/05/24 Range/Units 07:23 11:58 MCH (27.0-32.0) pg MCHC (32.0-37.0) g/dL RDW (11.5-14.5) % Lymphocytes # (0.90-5.00) X 10*3/uL Carbon Dioxide (21.6-31.8) mmol/L Glucose (70-110) mg/dL POC Glucose (mg/dL) 115 H 171 H (70-110) mg/dL Total Protein (6.2-8.2) g/dL Assessment and Plan (1) Allergy to multiple antibiotics Current Visit: No Status: Acute Code(s): Z88.1 - ALLERGY STATUS TO OTHER ANTIBIOTIC AGENTS SNOMED Code(s): 517628283 (2) UTI (urinary tract infection) Current Visit: No Status: Acute Code(s): N39.0 - URINARY TRACT INFECTION, SITE NOT SPECIFIED SNOMED Code(s): 03310708 Plan: 1patient presented to hospital mental status change which is multifactorial did have a positive UA concerning for a urinary tract infection with urine culture currently pending 2patient with multiple antibiotic ALLERGIES that would limit the number of antibiotic safe to use 3patient has lost her IV site we will switch her over to oral Omnicef obtain another UA and culture as initial urine culture not done discussed with the nursing staff Dictation was produced using Platter dictation software. please excuse any grammatical, word or spelling errors. Time with Patient: Less than 30
[2024-04-06] MEDS: HYDROcodone/APAP 10-325MG 1 EACH TAB PO PRN (10:39)
[2024-04-06 10:43] VITALS: RESP 16
[2024-04-06 11:36] LABS: Glucose,Whole Blood 238 mg/dL (70-110)
[2024-04-06 12:22] VITALS: BP 105/70; PULSE 107; TEMP 98.7
--- NOTE | 2024-04-06 12:31 | P.PN ---
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 Patient was brought into the emergency department at [facility] yesterday with mental status changes while she was living at her assisted living facility, patient became quite confused and her daughter was suspicious for urinary tract infection, so she called 911, and patient was brought into the emergency department for clear appointment, she was found to have urinary tract infection, she was started on ceftriaxone 2 g IV 24 hours, she was admitted to the hospital after obtaining blood culture and urine culture and an infectious ease consultation was obtained from Dr. Perales REVIEW OF SYSTEMS: Constitutional: No documented fever, no chills, no night sweats. No weight change. No weakness, fatigue or lethargy. No daytime sleepiness. EENT: No headache. No blurred vision or double vision, no loss of vision. No loss of Hearing, no ringing in the ears, no dizziness. No nasal drainage or congestion. No epistaxis. No sore throat. Lungs: No shortness of breath, no cough, no sputum production. No wheezing. Reports dyspnea with activity. Cardiovascular: No chest pain, no lower extremity edema. No palpitations. No paroxysmal nocturnal dyspnea. No orthopnea. No lightheadedness or dizziness. No syncopal episodes. Abdominal: Reports abdominal pain. No nausea, vomiting. No diarrhea. No constipation. No bloody or tarry stools reports loss of appetite. Genitourinary: No dysuria, increased frequency, urgency. No urinary retention. Musculoskeletal: No myalgias. No muscle weakness, no gait dysfunction, no frequent falls. No back pain. No neck pain. Integumentary: No wounds, no lesions. No rash or pruritus. No unusual bruising. No change in hair or nails. Neurologic: No aphasia. No facial droop. No change in mentation. No head injury. No headache. No paralysis. No paresthesia. Psychiatric: No depression. No anxiety. No mood swings. Endocrine: No abnormal blood sugars. No weight change. PHYSICAL EXAMINATION: General: 83-year-old female laying in bed no apparent distress, she is more awake today. HEENT: Head is atraumatic, normocephalic, pupils were equal round reactive to light and recommendation, extraocular muscle movement were intact, sclera nonicteric, conjunctivae were pale, mucous membranes of the mouth are somewhat dry. Neck: Supple, no JVP, normal carotid upstroke bilaterally, no lymphadenopathy. Chest: Decreased breath sounds at the bases, few rhonchi, no extremity wheezes, no chest wall tenderness, no intercostal retractions. Heart: First heart sound is normal, second heart sound is normal there is systolic ejection murmur 2/6 located left sternal border. Abdomen: Soft, nontender, nondistended, positive bowel sounds. Extremities: There is no edema no calf tenderness DP +2 bilaterally. Neurologic examination: Patient is awake alert and oriented X 3, cranial nerves II-12 appear grossly intact, muscle power were 5 out of 5 in upper extremities and 5 out of 5 in bilateral lower extremities, deep tendon reflexes normal bilaterally. ASSESSMENT AND PLAN: 1. Metabolic encephalopathy due to urinary tract infection with sepsis. Continue IV Ceftriaxone 1 gr IVPB Every 24 hours, await the results of the blood culture and urine culture, follow-up with the patient very closely. I nfectious disease consultation was obtained from Dr. Perales 2. Urinary tract infection with sepsis. Continue IV Marielos, monitor blood culture and urine culture repeat CBC tomorrow morning. 3. Paroxysmal Atrial fibrillation. Continue Eliquis 5 mg orally twice a day, continue verapamil 120 mg orally once every day. 4. Hypertension and hypertensive cardiovascular disease. Continue patient on hydrochlorothiazide 12.5 mg daily, losartan 100 mg daily, and verapamil 120 mg daily. 5. Hyperlipidemia. we will continue Zetia 10 mg po daily 6. Diabetes mellitus type 2. Continue patient on add NovoLog scale before meals and at bedtime, we will hold Farxiga and Ozempic for now. 7. Diabetic polyneuropathy. Continue Duloxetin 60 mg po daily continue pregabalin 200 mg orally twice every day 8. 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 Will continue present hydrocodone 10/325 mg orally 3 times a day as needed. 9. Idiopathic gout. Continue allopurinol 100 mg daily. 10. Obstructive sleep apnea. Continue CPAP. 11. Diabetic polyneuropathy. Continue patient on pregabalin 200 mg orally 2 times a day. 12. GI prophylaxis and gastroesophageal reflux disease. Continue Protonix 40 mg po daily 13. DVT prophylaxis. Continue Eliquis 5 mg orally twice every day. 14. Back to [facility] tomorrow morning. Objective - Vital Signs Vital signs: Vital Signs Temp 97.7 F 04/04/24 07:04 Pulse 93 04/04/24 07:04 Resp 17 04/04/24 07:04 BP 144/93 04/04/24 07:04 Pulse Ox 96 04/04/24 07:04 FiO2 Intake & Output 04/03/24 04/04/24 04/04/24 18:59 06:59 18:59 Weight 95.5 kg Other: Voiding Method Incontinent # Voids 1 # Bowel Movements 1 - Labs CBC & Chem 7: 04/04/24 04:43 04/04/24 04:43 Labs: Abnormal Lab Results - Last 24 Hours (Table) 04/04/24 04/04/24 Range/Units 04:43 04:43 RDW 16.3 H (11.5-15.5) % Chloride 110 H (98-107) mmol/L Carbon Dioxide 21 L (22-30) mmol/L Glucose 121 H (74-99) mg/dL AST 37 H (14-36) U/L Total Protein 6.2 L (6.3-8.2) g/dL
--- NOTE | 2024-04-06 12:33 | P.PN ---
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 Patient was brought into the emergency department at [facility] yesterday with mental status changes while she was living at her assisted living facility, patient became quite confused and her daughter was suspicious for urinary tract infection, so she called 911, and patient was brought into the emergency department for clear appointment, she was found to have urinary tract infection, she was started on ceftriaxone 2 g IV 24 hours, she was admitted to the hospital after obtaining blood culture and urine culture and an infectious ease consultation was obtained from Dr. Perales 04/05: Patient is sitting up in bed in no apparent distress, she is feeling a lot better, she could not have an IV therefore infectious disease switch the patient to oral cefdinir 300 mg orally twice every day to finish 1 week of that, patient would like to be discharged home tomorrow morning she is currently living at [facility], and her daughter will come to pick her up tomorrow afternoon. REVIEW OF SYSTEMS: Constitutional: No documented fever, no chills, no night sweats. No weight change. No weakness, fatigue or lethargy. No daytime sleepiness. EENT: No headache. No blurred vision or double vision, no loss of vision. No loss of Hearing, no ringing in the ears, no dizziness. No nasal drainage or congestion. No epistaxis. No sore throat. Lungs: No shortness of breath, no cough, no sputum production. No wheezing. Reports dyspnea with activity. Cardiovascular: No chest pain, no lower extremity edema. No palpitations. No paroxysmal nocturnal dyspnea. No orthopnea. No lightheadedness or dizziness. No syncopal episodes. Abdominal: Reports abdominal pain. No nausea, vomiting. No diarrhea. No constipation. No bloody or tarry stools reports loss of appetite. Genitourinary: No dysuria, increased frequency, urgency. No urinary retention. Musculoskeletal: No myalgias. No muscle weakness, no gait dysfunction, no frequent falls. No back pain. No neck pain. Integumentary: No wounds, no lesions. No rash or pruritus. No unusual bruising. No change in hair or nails. Neurologic: No aphasia. No facial droop. No change in mentation. No head injury. No headache. No paralysis. No paresthesia. Psychiatric: No depression. No anxiety. No mood swings. Endocrine: No abnormal blood sugars. No weight change. PHYSICAL EXAMINATION: General: 83-year-old female laying in bed no apparent distress, she is more awake today. HEENT: Head is atraumatic, normocephalic, pupils were equal round reactive to light and recommendation, extraocular muscle movement were intact, sclera nonicteric, conjunctivae were pale, mucous membranes of the mouth are somewhat dry. Neck: Supple, no JVP, normal carotid upstroke bilaterally, no lymphadenopathy. Chest: Decreased breath sounds at the bases, few rhonchi, no extremity wheezes, no chest wall tenderness, no intercostal retractions. Heart: First heart sound is normal, second heart sound is normal there is systolic ejection murmur 2/6 located left sternal border. Abdomen: Soft, nontender, nondistended, positive bowel sounds. Extremities: There is no edema no calf tenderness DP +2 bilaterally. Neurologic examination: Patient is awake alert and oriented X 3, cranial nerves II-12 appear grossly intact, muscle power were 5 out of 5 in upper extremities and 5 out of 5 in bilateral lower extremities, deep tendon reflexes normal bilaterally. ASSESSMENT AND PLAN: 1. Metabolic encephalopathy due to urinary tract infection with sepsis. Continue patient on cefdinir 300 mg orally twice every day for 7 days. 2. Urinary tract infection with sepsis. Continue patient on cefdinir 300 mg or ally twice every day 3. Paroxysmal Atrial fibrillation. Continue Eliquis 5 mg orally twice a day, continue verapamil 120 mg orally once every day. 4. Hypertension and hypertensive cardiovascular disease. Continue patient on hydrochlorothiazide 12.5 mg daily, losartan 100 mg daily, and verapamil 120 mg daily. 5. Hyperlipidemia. we will continue Zetia 10 mg po daily 6. Diabetes mellitus type 2. Continue patient on add NovoLog scale before meals and at bedtime, we will hold Farxiga and Ozempic for now. 7. Diabetic polyneuropathy. Continue Duloxetin 60 mg po daily continue pregabalin 200 mg orally twice every day 8. 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 Will continue present hydrocodone 10/325 mg orally 3 times a day as needed. 9. Idiopathic gout. Continue allopurinol 100 mg daily. 10. Obstructive sleep apnea. Continue CPAP. 11. Diabetic polyneuropathy. Continue patient on pregabalin 200 mg orally 2 times a day. 12. GI prophylaxis and gastroesophageal reflux disease. Continue Protonix 40 mg po daily 13. DVT prophylaxis. Continue Eliquis 5 mg orally twice every day. 14. Back to [facility] tomorrow morning. Objective - Vital Signs Vital signs: Vital Signs Temp 98.7 F 04/06/24 12:09 Pulse 107 H 04/06/24 12:09 Resp 16 04/06/24 12:09 BP 105/70 04/06/24 12:09 Pulse Ox 95 04/06/24 12:09 FiO2 Intake & Output 04/05/24 04/06/24 04/06/24 18:59 06:59 18:59 Intake Total 780 Balance 780 Intake: Oral 780 Other: Voiding Method Toilet # Voids 2 2 1 # Bowel Movements 1 - Labs CBC & Chem 7: 04/05/24 06:08 04/05/24 06:08 Labs: Abnormal Lab Results - Last 24 Hours (Table) 04/05/24 04/05/24 04/05/24 Range/Units 12:31 17:05 20:32 POC Glucose (mg/dL) 123 H 138 H (70-110) mg/dL Urine Appearance Cloudy H (Clear) Urine Protein Trace H (Negative) Urine Blood Large H (Negative) Ur Leukocyte Esterase Moderate H (Negative) Urine RBC >182 H (0-5) /hpf Urine WBC 26 H (0-5) /hpf Urine Bacteria Occasional H (None) /hpf Urine Mucus Occasional H (None) /hpf 04/06/24 04/06/24 Range/Units 07:22 11:34 POC Glucose (mg/dL) 127 H 238 H (70-110) mg/dL Urine Appearance (Clear) Urine Protein (Negative) Urine Blood (Negative) Ur Leukocyte Esterase (Negative) Urine RBC (0-5) /hpf Urine WBC (0-5) /hpf Urine Bacteria (None) /hpf Urine Mucus (None) /hpf
--- NOTE | 2024-04-06 14:04 | P.PN ---
Subjective Progress Note Date: 04/06/24 Principal diagnosis: Reason for follow-up is UTI and multiple antibiotic allergies Patient is a 83-year-old female with multiple comorbidities presenting to the hospital with mental status changes did have a positive UA concerning for a symptomatic UTI with multiple antibiotic allergies prompting this consultation. On today's evaluation that is 04/06/2024, the patient continues to be afebrile, the patient is on room air and breathing comfortably, the Pt denies having any chest pain or cough, the patient denies having any abdominal pain no vomiting or any diarrhea has been reported by the nursing staff, patient mention feeling better and wants to go home. No new labs were obtained today however the patient have significantly positive UA that was collected yesterday Objective - Vital Signs Vital signs: Vital Signs Temp 98.7 F 04/06/24 12:09 Pulse 107 H 04/06/24 12:09 Resp 16 04/06/24 12:09 BP 105/70 04/06/24 12:09 Pulse Ox 95 04/06/24 12:09 FiO2 Intake & Output 04/05/24 04/06/24 04/06/24 18:59 06:59 18:59 Intake Total 780 Balance 780 Intake: Oral 780 Other: Voiding Method Toilet Toilet # Voids 2 2 1 # Bowel Movements 1 - Exam GENERAL DESCRIPTION: An elderly female lying in bed in no distress RESPIRATORY SYSTEM: Unlabored breathing , decreased breath sounds at bases HEART: S1 S2 regular rate and rhythm , ABDOMEN: Soft , no tenderness EXTREMITIES: No edema feet - Labs CBC & Chem 7: 04/05/24 06:08 04/05/24 06:08 Labs: Abnormal Lab Results - Last 24 Hours (Table) 04/05/24 04/05/24 04/05/24 Range/Units 12:31 17:05 20:32 POC Glucose (mg/dL) 123 H 138 H (70-110) mg/dL Urine Appearance Cloudy H (Clear) Urine Protein Trace H (Negative) Urine Blood Large H (Negative) Ur Leukocyte Esterase Moderate H (Negative) Urine RBC >182 H (0-5) /hpf Urine WBC 26 H (0-5) /hpf Urine Bacteria Occasional H (None) /hpf Urine Mucus Occasional H (None) /hpf 04/06/24 04/06/24 Range/Units 07:22 11:34 POC Glucose (mg/dL) 127 H 238 H (70-110) mg/dL Urine Appearance (Clear) Urine Protein (Negative) Urine Blood (Negative) Ur Leukocyte Esterase (Negative) Urine RBC (0-5) /hpf Urine WBC (0-5) /hpf Urine Bacteria (None) /hpf Urine Mucus (None) /hpf Assessment and Plan (1) Allergy to multiple antibiotics Current Visit: No Status: Acute Code(s): Z88.1 - ALLERGY STATUS TO OTHER ANTIBIOTIC AGENTS SNOMED Code(s): 640677594 (2) UTI (urinary tract infection) Current Visit: No Status: Acute Code(s): N39.0 - URINARY TRACT INFECTION, SITE NOT SPECIFIED SNOMED Code(s): 30382657 Plan: 1patient presented to hospital mental status change which is multifactorial did have a positive UA concerning for a urinary tract infection with urine culture currently pending 2patient with multiple antibiotic ALLERGIES that would limit the number of antibiotic safe to use 3patient seem to have shown some clinical improvement repeat UA still positive for wait for the culture continue with Omnicef Dictation was produced using C4M dictation software. please excuse any grammatical, word or spelling errors. Time with Patient: Less than 30
--- NOTE | 2024-04-20 13:16 | CT ---
Patient: Adalgisa Barrera Ordering Physician: Unknown, Unknown ID: [id number] Phone, Pager: Phone : N/A Pager: N/A : [phone] Age/Gender: 83Y, F Primary Location: N/A Procedure: CT BRAIN W/O Stud y Date: 04/01/2024 10:49:00 AM EXAMINATION TYPE: CT brain wo con DATE OF EXAM: 04/01/2024 COMPARISON: 07/25/2023 INDICATION: Acute neural deficit DLP: 1080.4 mGycm, Automated exposure control for dose reduction was used. CONTRAST: None CT of the brain is performed utilizing 3 mm thick sections through the posterior fossa and 3 mm thick sections through the remaining calvarium. Study is performed within 24 hours of arrival to the hosp [facility]. No abnormal hyperdensity is present to suggest an acute intracranial hemorrhage. No mass lesion is evident. No acute infarcts are evident. Some mild periventricular white matter hypodensity is present, likely on the basis of chronic white matter ischemic changes. Pattern appears stable. Ventricles and sulci are prominent for the patient age. There is opacification of ethmoid air cells and the left maxillary sinus. Some inspissated mucus may be within the left maxillary sinus. Sphenoid sinuses and frontal sinuses visualized are clear. Right frontal sinus appears aplastic. The left frontal sinuses hypoplastic. Visualized portions of the righ t maxillary sinus are clear. Mastoid air cells are clear. These findings have worsened from the kenna rison study. IMPRESSION: 1. No acute intracranial process. Follow up MRI can be performed as clinically indicated. 2. Chronic appearing periventricular white matter ischemic type changes with age-related atrophy, sta ble from comparison
--- NOTE | 2024-05-12 12:18 | CONS ---
CONSULTATION REASON FOR CONSULTATION: Urinary tract infection. CHIEF COMPLAINT: Mental status changes. HISTORY OF PRESENT ILLNESS: The patient is an 84-year-old female with multiple comorbidities. Apparently, the patient lives alone at home. On the day of presentation, the daughter called the patient that morning and noticed her mom to be acting strange. The patient was awake, alert, and oriented on the time of presentation to the hospital. Incontinent of urine and repeating answers. No clear history of any fever or any chills and none was recorded on presentation to the hospital. The patient noticed to have a positive UA, concerning for a symptomatic urinary tract infection, admitted to the hospital for further workup. Infectious Disease was consulted for further management of antibiotic therapy. The patient is still mildly awake today, but when asked specifically, where she is she did not answer the question. No fever has been recorded. Denies any headache, no chest pain, shortness of breath, or cough. No vomiting or diarrhea has been reported. No abdominal pain. She was not very clear about any urinary symptoms; currently, did not have any open wound or any drainage as reported by the nursing staff. REVIEW OF SYSTEMS: Positive points have been mentioned in the HPI. Rest of the systems was negative. PAST MEDICAL HISTORY: Reviewed. PAST SURGICAL HISTORY: Reviewed. SOCIAL HISTORY: Reviewed. FAMILY HISTORY: Reviewed. ALLERGIES: Reported to clindamycin and zoledronic acid. MEDICATIONS: Currently, the patient is on: 1. Duloxetine. 2. Eliquis. 3. Rocephin. 4. Melatonin. 5. Nystatin powder. 6. IV fluid. 7. . 8. Tylenol. PHYSICAL EXAMINATION: VITAL SIGNS: Her blood pressure is 160/92, pulse of 65, temperature 98.9. She is on 96% on room air. GENERAL: The patient is an elderly female, lying in bed in no distress. No tachypnea or accessory muscle of respiration use. HEENT: Shows no pallor or scleral icterus. Oral mucosa membranes moist. NECK: Trachea central. No thyromegaly. LUNGS: Unlabored breathing. Clear to auscultation anteriorly. No wheeze or crackle. HEART: S1 and S2. Regular rate and rhythm. ABDOMEN: Soft, no tenderness. No guarding. No rigidity. EXTREMITIES: No edema in the feet. SKIN: No rash or mass palpable. NEUROLOGICAL: The patient is awake, alert, and oriented x1. Mood and affect are normal. LABORATORY DATA: Hemoglobin is 13.6, white count of 7.63, BUN of 24, creatinine 0.79. Electrolytes have been normal. UA was positive, cloudy with 324 wbc's. Cultures are currently pending. DIAGNOSTIC IMPRESSION AND PLAN: 1. The patient presented to the hospital with mental status changes, multifactorial with likely component of a symptomatic urinary tract infection, likely from enteric gram-negative pathogen for some extent. 2. Rocephin 1 g daily to continue while awaiting for the culture to finalize. Thank you for this consultation. We will follow this patient along with you and adjust the medication further as needed. MMODL / IJN: [id number] /
--- NOTE | 2024-05-12 12:40 | PN ---
PROGRESS NOTE DATE OF SERVICE: 04/03/2024 LOCATION: [facility]. REASON FOR FOLLOWUP: Urinary tract infection. INTERVAL HISTORY: The patient is afebrile. The patient is breathing comfortably, slightly more awake and alert today with no chest pain, shortness of breath, or cough. No abdominal pain. No diarrhea. PHYSICAL EXAMINATION: VITAL SIGNS: Blood pressure 152/86, pulse of 89, temperature 97.6, he is 98% on room air. GENERAL DESCRIPTION: The patient is an elderly female, lying in bed, in no distress. RESPIRATORY SYSTEM: Unlabored breathing. Clear to auscultation anteriorly. HEART: S1, S2. Regular rate and rhythm. ABDOMEN: Soft. No tenderness. EXTREMITIES: No edema in feet. LABORATORY DATA: White count creatinine 0.82. DIAGNOSTIC IMPRESSION AND PLAN: The patient with mental status changes, multifactorial, possible component of urinary tract infection. Currently waiting for urine culture to finalize. Continue with Rocephin and monitor clinical course closely. MMODL / IJN: [id number] /
== END 2024-04-06 15:13 | disposition home health service (06) | DRG 871 ==
LOC: 5NMEDONC 12:58 → UNDODISIN 13:35
PROVIDERS: ADMIT Internal Medicine; ATTEND Internal Medicine
DX: A41.9 Sepsis, unspecified organism (principal); G93.41 Metabolic encephalopathy; N39.0 Urinary tract infection, site not specified; E78.5 Hyperlipidemia, unspecified; I10 Essential (primary) hypertension; E11.9 Type 2 diabetes mellitus without complications; E11.42 Type 2 diabetes mellitus with diabetic polyneuropathy; G47.33 Obstructive sleep apnea (adult) (pediatric); M10.00 Idiopathic gout, unspecified site; I48.0 Paroxysmal atrial fibrillation; K21.9 Gastro-esophageal reflux disease without esophagitis; M17.0 Bilateral primary osteoarthritis of knee; M47.816 Spondylosis without myelopathy or radiculopathy, lumbar region; Z88.0 Allergy status to penicillin; Z88.1 Allergy status to other antibiotic agents; Z79.01 Long term (current) use of anticoagulants
CPT/HCPCS: 70450; 71046; 80053; 81001; 83735; 85025; 85027; 87086; 93005; 96361; 96374; 96375; 99285

== ENCOUNTER → 2024-04-08 | Outpatient (CLI) | payer MEDICARE, OTHER ==
[2024-04-08 08:23] VITALS: BP 147/84; PULSE 80; RESP 17; TEMP 97.9
--- NOTE | 2024-04-08 14:36 | P.PAINPG ---
PQRS Measure Charge Sheet Comment: HISTORY OF PRESENT ILLNESS: A 83 yr old female w daughter at side as a referral from Dr Bass presents today w severe and chronic LBP > 1 yr secondary to radiculopathy, spondylosis and facet arthropathy without myelopathy for evaluation. Pt states pain level is provoked at 6 /10 in intensity, constant, localized in the lumbar spine, predominantly axial, sharp in character w occasional shooting pain towards the R groin and top of R knee/ thigh. Pt sits veered towards L for some pain relief. Pain is provoked by over activity. Pain is alleviated by PT x 6 wks which ended in Nov 2023, physician guided home stretches daily since Nov 2023, ice, walker for ambulatory assistance, medications ([place], Lyrica 100mg, Baclofen, Naproxen, Cymbalta, Tyl), repositioning and rest . PMH: OA, aFib, CVA, NIDDM II, Fibromyalgia, GERD, HTN, Hyperlipidemia, RA, Gout PSH: BL Cataract Extraction, BL SI Surgery, Lumbar Fusions/ Hardware/ Removal x5 (2014) w SCS implant, L Knee Arthroplasty, R TKA (2022), Hysterectomy SH: Negative x3 FH: Mo- CAD, ME, CVA All: See list Meds: See list REVIEW OF ORGAN SYSTEMS: CONSTITUTIONAL: No fevers or chills. No recent weight loss. NEUROLOGICAL: + numbness and tingling along the distal extremities. No seizure disorders or headaches. MUSCULOSKELETAL: + pain PSYCHIATRIC: Denies current depression or suicidal thoughts. Physical Examinations : Constitutional : Cooperative , not in acute distress . Neurologic : Cranial nerve II to XII intact. No focal neurological deficits. Psychiatric : alert & oriented x 3. Matching mood & appropriate affect. Judgment & insight intact. Musculoskeletal : Cervical Spine Motor strength in the deltoid and biceps: Normal right side. Normal Left side Motor strength biceps and the wrist extensors: Normal right side . Normal left side Motor strength in the triceps muscle: Normal right side. Normal left side Deep tendon reflexes: Normal at the biceps. Normal at Brachioradialis. Normal at triceps Vertebral body tenderness to deep palpation over Cervical facet loading test: positive bilaterally Spurling test: positive bilaterally Neck distraction test: positive bilaterally Romero sign: positive bilaterally Lumbar spine Motor strength lower extremities ,thigh and legs 5/5 Right side , 5/5 Left side Deep tendon reflexes : Normal Knee Jerk. Normal Ankle Jerk Vertebral body tenderness over L4 Chakraborty Test positive R> L L4-L5 Lumbar facet Loading Test: positive Right / positive Left Range of motion of the lumbar spine Flexion 30 degrees, extension 10 degrees Straight Leg Raise test: Left/ Right positive at degrees Sonja test: positive right / positive left. Severe tenderness over the Sacroiliac joint on the Right / Left sides Gaenslen test: positive bilaterally Seated flexion test: positive bilaterally. Sacral spine : Severe tenderness over the Sacroiliac joint: right side / left side Range of motion: Flexion of the lumbar spine <60 degrees Range of motion: Extension of the lumbar spine <20 degrees Gaenslen's Test positive Sonja test: positive right side / left side Thigh Thrust Test Sacral Thrust Test Imaging: CT lumbar spine from 03/11/24 completed and awaiting uploading to records Assessment/ Plan : L1-S1 post laminectomy syndrome Recommendation of EUSEBIO BL TFESI L4-L5 #1. Risks, benefits of procedure discussed and patient verbalized understanding. Admits to anti- coagulant use or medical history of diabetes. Protocol for discontinuation/ continuation of medications maya procedure discussed. All questions answered. I have spent greater than 30 minutes on patient care today. Dr Bergman was available by phone for the evaluation of this patient. The time was used to review the medical records including relevant urine studies and Prescription history (MAPs), review of the available imaging, evaluation and examination of the patient, coordination of care with the medical staff and if applicable referring physicians, as well as creation of the medical record Home Medications: Ambulatory Orders allopurinoL [Zyloprim] 100 mg PO DAILY 09/21/20 Cholecalciferol [Vitamin D3 (25 Mcg = 1000 Iu)] 25 mcg PO DAILY 11/04/22 Losartan Potassium [Cozaar] 100 mg PO DAILY 11/04/22 Vitamin B Complex 1 cap PO DAILY 11/04/22 Apixaban [Eliquis] 5 mg PO BID #60 tab 11/13/22 DULoxetine HCL [Cymbalta] 60 mg PO HS 01/03/23 Multivit-Min/Iron/Folic/Lutein [Centrum Silver Women Tablet] 1 tab PO DAILY 01/03/23 Dapagliflozin Propanediol [Farxiga] 10 mg PO DAILY 07/17/23 Ezetimibe [Zetia] 10 mg PO DAILY 07/17/23 Furosemide [Lasix] 20 mg PO DAILY PRN 07/17/23 Verapamil HCl [Verapamil ER] 120 mg PO DAILY 07/17/23 Semaglutide [Ozempic] 0.5 mg SQ Th 07/28/23 Acetaminophen Tab [Tylenol] 650 mg PO Q6H PRN 09/12/23 Azo D-Mannose 500mg 2,000 mg PO DAILY 09/12/23 Famotidine [Pepcid] 40 mg PO HS PRN 09/12/23 HYDROcodone/APAP 10-325MG [[place] 10-325] 1 tab PO Q8H PRN 09/12/23 L.acidoph,Paracasei, B.lactis [Probiotic] 1 cap PO DAILY 09/12/23 Melatonin 10 mg PO HS PRN 09/12/23 Potassium Chloride [Klor-Con M10] 10 meq PO DAILY PRN 09/12/23 Pregabalin [Lyrica] 200 mg PO BID 09/12/23 Ubidecarenone [Coenzyme Q10] 200 mg PO DAILY 09/12/23 hydroCHLOROthiazide [Hydrodiuril] 25 mg PO DAILY 09/12/23 Nitrofurantoin Monohyd/M-Cryst [Macrobid] 100 mg PO Q12HR #14 cap 09/15/23 Cefdinir [Omnicef] 300 mg PO BID #14 cap 04/06/24 HYDROcodone/APAP 10-325MG [[place] 10-325] 1 each PO Q8H PRN tab 04/06/24 QUEtiapine [SEROquel] 25 mg PO HS tab 04/06/24 Controlled Substance Measures - Controlled Substance Measures Is patient prescribed a controlled substance at discharge?: No
== END ==
LOC: PNWHC3 08:01
PROVIDERS: ATTEND Specialist
DX: M54.16 Radiculopathy, lumbar region
CPT/HCPCS: 99211

== ENCOUNTER 2024-05-04 07:17 | Day surgery (SDC) | payer MEDICARE, OTHER ==
[2024-05-03 11:49] VITALS: BMI 35.2
[~2024-05-04 07:17] MED LIST changes: +LACTATED RINGERS 1,000 ML IV SCH; -LORazepam 2 MG/ML INJ ONE; -MORPHINE SULFATE 4 MG/ML SYRINGE ONE; -ONDANSETRON 4 MG/2 ML VIAL ONE; -SODIUM CHLORIDE 0.9% 1,000 ML BAG ONE; -SODIUM CHLORIDE 0.9% 50 ML BAG ONE
[2024-05-04 07:51] VITALS: RESP 16; TEMP 97.5
[2024-05-04 08:41] LABS: Glucose,Whole Blood 111 mg/dL (70-110)
[2024-05-04] MEDS ORDERED: methylPREDNISolone ACETATE 40 MG/ML 1 ML VIAL ONE (08:50)
[2024-05-04] MEDS ORDERED: IOPAMIDOL M200 10 ML VIAL ONE (08:50)
[2024-05-04 09:29] VITALS: BP 108/63; PULSE 73
--- NOTE | 2024-05-04 09:59 | P.PCN ---
Date of Procedure: 05/04/24 Procedure(s) Performed: PREOPERATIVE DIAGNOSIS: 1-Lumbar radiculopathy . 2-lumbar degenerative disc disease. 3-lumbar spondylosis with lumbar facet arthropathy without myelopathy POSTOPERATIVE DIAGNOSIS: 1-lumbar radiculopathy. 2-lumbar degenerative disc disease. 3-lumbar spondylosis with facet arthropathy without myelopathy PROCEDURE 1. Transforaminal epidural steroid injection under fluoroscopic guidance at bilateral L4-5 level. (Fluoroscopy images stored on file in the radiology Department ) 2. Lumbar epidurogram . ANESTHESIA: Local with 1% lidocaine 4 ml. EBL: Minimal PROCEDURE INDICATION: The patient with low back pain and radiculopathy symptoms unresponsive to conservative treatment. PROCEDURE DESCRIPTION / TECHNIQUE: The patient was seen and identified in the preoperative area. Risks, benefits, complications, and alternatives were discussed with the patient. The patient agreed to proceed with the procedure and signed the consent. IV was started, and vital signs were stable. Patient was taken to the OR and time out was completed. The patient was placed in the prone position on procedure table and a pillow was placed under the abdomen to reduce lumbar lordosis. The lumbosacral area was prepped and draped in the usual sterile fashion. Critical pause was taken. Vital signs were closely monitored during the procedure. Using oblique fluoroscopy, the chin of the ``Yayo dog at Right L4-5 level was identified, and the skin and deeper tissues just below was localized with 1% lidocaine. Subsequently, a 22-gauge 5-inch spinal needle was advanced under a tunneled view fluoroscopic guidance just underneath the chin of the ``Yayo dog at the right/left L4-5 Under lateral fluoroscopy, the needle was then advanced to the posterior border of the interforaminal space. After negative aspiration of CSF and blood and with no paresthesias, 1 mL Isovue 200 contrast dye was injected excellent epidurogram and outlining of the nerve root Subsequently, 3 mL of block solution containing 20 mg Depo-Medrol and 2 mL of 0.9% normal saline PF was injected. Needle was removed and the same procedure was repeated at the left L4-5 level . At the end of the procedure, skin was cleansed, and bandages were applied. COMPLICATIONS:none DISPOSITION / PLANS: The patient was placed in a supine position and transferred to the recovery area in a stable condition for observation. There was no evidence of lower extremity motor or sensory deficit after the procedure. Patient was discharged from the recovery room after meeting discharge criteria. Home discharge instructions were given to the patient by the staff. The patient was reexamined prior to discharge. note= last dose of Eliquis was taken more than 72 hours ago .
--- NOTE | 2024-05-11 18:22 | FL ---
EXAMINATION TYPE: FL guided pain mgmt statistic DATE OF EXAM: 05/04/2024 9:07 AM COMPARISON: Pre Operative Images if available both CT/MRI or plain film CLINICAL INDICATION: Female, 83 years old with history of PAIN; TECHNIQUE: FL guided pain mgmt statistic, multiple fluoroscopic images provided for procedure. Total fluoroscopy time: 10.3 seconds Total submitted images to PACS: 2 DAP: 0.89323 mGym2 Gycm2 uGym2 cGycm2 FINDINGS: Fluoroscopic images during injection for pain management demonstrate multilevel degeneration changes throughout the spine. No evidence for fracture. No acute process identified. IMPRESSION: 1. No evidence for intraoperative complication. 2. Please see the operative/procedural note for further details. [facility], , 05/11/2024 6:19 PM
== END 2024-05-04 09:45 | disposition home or self-care (01) ==
LOC: ORPAIN 07:17
PROVIDERS: ATTEND Specialist
DX: M54.16 Radiculopathy, lumbar region

== ENCOUNTER → 2024-05-20 | Outpatient (CLI) | payer MEDICARE, OTHER ==
[2024-05-20 08:42] VITALS: BP 148/94; PULSE 77; RESP 16
--- NOTE | 2024-05-20 14:37 | P.PAINPG ---
PQRS Measure Charge Sheet Comment: HISTORY OF PRESENT ILLNESS: A 83 yr old female w daughter at side presents today w severe and chronic LBP > 1 yr secondary to radiculopathy, spondylosis and facet arthropathy without myelopathy for evaluation s/p BL TFESI L4-L5 #1. Pt states she experienced 90 % pain relief x 2 days s/p procedure. Pt states pain level is provoked at 6 /10 in intensity, constant, localized in the lumbar spine, predominantly axial, throbbing in character w occasional shooting pain towards the R groin and top of R knee/ thigh. Pt sits veered towards L for some pain relief. Pain is provoked by walking/ standing for periods > 10 min. Pain is alleviated by PT x 6 wks which ended in Nov 2023, physician guided home stretches daily since Nov 2023, ice, walker for ambulatory assistance, medications, repositioning and rest . Interventional procedures include BL TFESI L4-L5 x1 Medications include Cartwright, Lyrica 100mg, Baclofen, Naproxen, Cymbalta, Tyl REVIEW OF ORGAN SYSTEMS: CONSTITUTIONAL: No fevers or chills. No recent weight loss. NEUROLOGICAL: + numbness and tingling along the distal extremities. No seizure disorders or headaches. MUSCULOSKELETAL: + pain PSYCHIATRIC: Denies current depression or suicidal thoughts. Physical Examinations : Constitutional : Cooperative , not in acute distress . Neurologic : Cranial nerve II to XII intact. No focal neurological deficits. Psychiatric : alert & oriented x 3. Matching mood & appropriate affect. Judgment & insight intact. Musculoskeletal : Cervical Spine Motor strength in the deltoid and biceps: Normal right side. Normal Left side Motor strength biceps and the wrist extensors: Normal right side . Normal left side Motor strength in the triceps muscle: Normal right side. Normal left side Deep tendon reflexes: Normal at the biceps. Normal at Brachioradialis. Normal at triceps Vertebral body tenderness to deep palpation over Cervical facet loading test: positive bilaterally Spurling test: positive bilaterally Neck distraction test: positive bilaterally Romero sign: positive bilaterally Lumbar spine Motor strength lower extremities ,thigh and legs 5/5 Right side , 5/5 Left side Deep tendon reflexes : Normal Knee Jerk. Normal Ankle Jerk Vertebral body tenderness over L4 Chakraborty Test positive R> L L4-L5 Lumbar facet Loading Test: positive Right / positive Left Range of motion of the lumbar spine Flexion 30 degrees, extension 10 degrees Straight Leg Raise test: Left/ Right positive at degrees Sonja test: positive right / positive left. Severe tenderness over the Sacroiliac j oint on the Right / Left sides Gaenslen test: positive bilaterally Seated flexion test: positive bilaterally. Sacral spine : Severe tenderness over the Sacroiliac joint: right side / left side Range of motion: Flexion of the lumbar spine <60 degrees Range of motion: Extension of the lumbar spine <20 degrees Gaenslen's Test positive Sonja test: positive right side / left side Thigh Thrust Test Sacral Thrust Test Imaging: CT lumbar spine from 03/11/24 completed and awaiting uploading to records Assessment/ Plan : L1-S1 post laminectomy syndrome Recommendation of medication management. Will discontinue Cartwright agreement w Dr Austin and start Percocet 10/325mg #90. Opiate/ narcotic agreement signed 05/20/24. All questions answered. I have spent greater than 30 minutes on patient care today. Dr Bergman was available by phone for the evaluation of this patient. The time was used to review the medical records including relevant urine studies and Prescription history (MAPs), review of the available imaging, evaluation and examination of the patient, coordination of care with the medical staff and if applicable referring physicians, as well as creation of the medical record PQRS Narrative: Hx Alcohol Use (MH) No Home Medications: Ambulatory Orders allopurinoL [Zyloprim] 100 mg PO DAILY 09/21/20 Cholecalciferol [Vitamin D3 (25 Mcg = 1000 Iu)] 25 mcg PO DAILY 11/04/22 Losartan Potassium [Cozaar] 100 mg PO DAILY 11/04/22 Vitamin B Complex 1 cap PO DAILY 11/04/22 Apixaban [Eliquis] 5 mg PO BID #60 tab 11/13/22 DULoxetine HCL [Cymbalta] 60 mg PO HS 01/03/23 Multivit-Min/Iron/Folic/Lutein [Centrum Silver Women Tablet] 1 tab PO DAILY 01/03/23 Dapagliflozin Propanediol [Farxiga] 10 mg PO DAILY 07/17/23 Ezetimibe [Zetia] 10 mg PO DAILY 07/17/23 Furosemide [Lasix] 20 mg PO DAILY PRN 07/17/23 Verapamil HCl [Verapamil ER] 120 mg PO DAILY 07/17/23 Semaglutide [Ozempic] 0.5 mg SQ Th 07/28/23 Acetaminophen Tab [Tylenol] 650 mg PO Q6H PRN 09/12/23 Azo D-Mannose 500mg 2,000 mg PO DAILY 09/12/23 L.acidoph,Paracasei, B.lactis [Probiotic] 1 cap PO DAILY 09/12/23 Melatonin 10 mg PO HS PRN 09/12/23 Potassium Chloride [Klor-Con M10] 10 meq PO DAILY PRN 09/12/23 Pregabalin [Lyrica] 200 mg PO BID 09/12/23 Ubidecarenone [Coenzyme Q10] 200 mg PO DAILY 09/12/23 hydroCHLOROthiazide [Hydrodiuril] 25 mg PO DAILY 09/12/23 Cefuroxime [Ceftin] 500 mg PO BID 05/03/24 oxyCODONE HCL/ACETAMINOPHEN [Percocet 10-325 mg Tablet] 1 each PO TID PRN 30 Days #90 tab 05/20/24 oxyCODONE HCL/ACETAMINOPHEN [Percocet 10-325 mg] 1 tab PO TID PRN 30 Days #90 tab 05/20/24 Controlled Substance Measures - Controlled Substance Measures Is patient prescribed a controlled substance at discharge?: Yes When asked, does pt state using other controlled substances?: Yes If prescribed controlled substance>3 days was MAPS reviewed?: Yes If Rx opioid, was Start Talking consent form obtained?: Yes Was information provided regarding opioid addiction?: Yes
== END | disposition home or self-care (01) ==
LOC: PNWHC3 07:47
PROVIDERS: ATTEND Specialist
DX: M54.16 Radiculopathy, lumbar region
CPT/HCPCS: 99211

== ENCOUNTER → 2024-06-07 | Outpatient (CLI) | payer MEDICARE, OTHER ==
[2024-06-07 12:57] VITALS: BP 105/70; PULSE 87; RESP 16
--- NOTE | 2024-06-09 07:58 | P.PAINPG ---
Objective - Vital Signs Vital signs: Vital Signs Temp Pulse 87 06/07/24 12:53 Resp 16 06/07/24 12:53 BP 105/70 06/07/24 12:53 Pulse Ox 96 06/07/24 12:53 FiO2 Intake & Output 06/06/24 06/07/24 06/07/24 18:59 06:59 18:59 Weight 80.286 kg PQRS Measure Charge Sheet Mode of Arrival: Ambulatory Comment: HISTORY OF PRESENT ILLNESS: A 83 yr old female w daughter at [facility] presents today w severe and chronic LBP > 1 yr secondary to radiculopathy, spondylosis and facet arthropathy without myelopathy for evaluation stating Percocet is ineffective in treating pain. Pt is tearful in exam room. Pt states pain level is provoked at 7 /10 in intensity, constant, localized in the lumbar spine, predominantly axial, throbbing in character w occasional shooting pain towards the R thigh. Pain is provoked by walking/ standing for periods > 10 min. Pain is alleviated by PT x 6 wks which ended in Nov 2023, physician guided home stretches daily since Nov 2023, ice, walker for ambulatory assistance, medications, repositioning and rest . Interventional procedures include BL TFESI L4-L5 x1 Medications include Edison, Lyrica 100mg, Baclofen, Naproxen, Cymbalta, Tyl REVIEW OF ORGAN SYSTEMS: CONSTITUTIONAL: No fevers or chills. No recent weight loss. NEUROLOGICAL: + numbness and tingling along the distal extremities. No seizure disorders or headaches. MUSCULOSKELETAL: + pain PSYCHIATRIC: Denies current depression or suicidal thoughts. Physical Examinations : Constitutional : Cooperative , not in acute distress . Neurologic : Cranial nerve II to XII intact. No focal neurological deficits. Psychiatric : alert & oriented x 3. Matching mood & appropriate affect. Judgment & insight intact. Musculoskeletal : Cervical Spine Motor strength in the deltoid and biceps: Normal right side. Normal Left side Motor strength biceps and the wrist extensors: Normal right side . Normal left side Motor strength in the triceps muscle: Normal right side. Normal left side Deep tendon reflexes: Normal at the biceps. Normal at Brachioradialis. Normal at triceps Vertebral body tenderness to deep palpation over Cervical facet loading test: positive bilaterally Spurling test: positive bilaterally Neck distraction test: positive bilaterally Romero sign: positive bilaterally Lumbar spine Motor strength lower extremities ,thigh and legs 5/5 Right side , 5/5 Left side Deep tendon reflexes : Normal Knee Jerk. Normal Ankle Jerk Vertebral body tenderness over L5 Chakraborty Test positive R> L L5-S1 Lumbar facet Loading Test: positive Right / positive Left Range of motion of the lumbar spine Flexion 30 degrees, extension 10 degrees Straight Leg Raise test: Left/ Right positive at degrees Sonja test: positive right / positive left. Severe tenderness over the Sacroiliac joint on the Right / Left sides Gaenslen test: positive bilaterally Seated flexion test: positive bilaterally. Sacral spine : Severe tenderness over the Sacroiliac joint: right side / left side Range of motion: Flexion of the lumbar spine <60 degrees Range of motion: Extension of the lumbar spine <20 degrees Gaenslen's Test positive Sonja test: positive right side / left side Thigh Thrust Test Sacral Thrust Test Imaging: CT lumbar spine from 03/11/24 completed and awaiting uploading to records Assessment/ Plan : L1-S1 post laminectomy syndrome Recommendation of Caudal EUSEBIO w Lysis and medication management. Risks, benefits of procedure discussed and pt verbalized understanding. Protocol for discontinuation/ continuation of medications maya procedure discussed.\ Discontinue Percocet 10/325mg #90. Opiate/ narcotic agreement for Fentanyl 25mcg/hr #10 signed 06/07/24. Add Flexeril 10mg #90 prn spasms #90 w 1 RF. To take Valium 1hr prior to procedure. Use, side effects, adverse reactions, safe storage discussed. Pt & [id number] acknowledged understanding. All questions answered. I have spent greater than 30 minutes on patient care today. Dr Bergman was available by phone for the evaluation of this patient. The time was used to review the medical records including relevant urine studies and Prescription history (MAPs), review of the available imaging, evaluation and examination of the patient, coordination of care with the medical staff and if applicable referring physicians, as well as creation of the medical record - Pain Location Lower Back Non-Pharmacological Interventions: Heat, Ice Pharmacological Interventions: Epidural, Scheduled Medication PQRS Narrative: Narcotic Agreement Date Signed 05/20/24 Blood Pressure 105/70 Pain Intensity [Lower Back] 7 Scale Used Numeric (1 - 10) Hx Alcohol Use (MH) No Home Medications: Ambulatory Orders allopurinoL [Zyloprim] 100 mg PO DAILY 09/21/20 Cholecalciferol [Vitamin D3 (25 Mcg = 1000 Iu)] 25 mcg PO DAILY 11/04/22 Losartan Potassium [Cozaar] 100 mg PO DAILY 11/04/22 Vitamin B Complex 1 cap PO DAILY 11/04/22 Apixaban [Eliquis] 5 mg PO BID #60 tab 11/13/22 DULoxetine HCL [Cymbalta] 60 mg PO HS 01/03/23 Multivit-Min/Iron/Folic/Lutein [Centrum Silver Women Tablet] 1 tab PO DAILY 01/03/23 Dapagliflozin Propanediol [Farxiga] 10 mg PO DAILY 07/17/23 Ezetimibe [Zetia] 10 mg PO DAILY 07/17/23 Furosemide [Lasix] 20 mg PO DAILY PRN 07/17/23 Verapamil HCl [Verapamil ER] 120 mg PO DAILY 07/17/23 Semaglutide [Ozempic] 0.5 mg SQ Th 07/28/23 Acetaminophen Tab [Tylenol] 650 mg PO Q6H PRN 09/12/23 Azo D-Mannose 500mg 2,000 mg PO DAILY 09/12/23 L.acidoph,Paracasei, B.lactis [Probiotic] 1 cap PO DAILY 09/12/23 Melatonin 10 mg PO HS PRN 09/12/23 Potassium Chloride [Klor-Con M10] 10 meq PO DAILY PRN 09/12/23 Pregabalin [Lyrica] 200 mg PO BID 09/12/23 Ubidecarenone [Coenzyme Q10] 200 mg PO DAILY 09/12/23 hydroCHLOROthiazide [Hydrodiuril] 25 mg PO DAILY 09/12/23 Cefuroxime [Ceftin] 500 mg PO BID 05/03/24 Cyclobenzaprine [Flexeril] 10 mg PO TID PRN 30 Days #90 tab 06/07/24 diazePAM [Valium] 5 mg PO DAILY PRN 1 Days #2 tab 06/07/24 fentaNYL 25MCG/HR PATCH [Duragesic 25MCG/HR] 25 mcg TRANSDERM Q72H 30 Days #10 patch 06/07/24 fentaNYL 25MCG/HR PATCH [Duragesic 25MCG/HR] 25 mcg TRANSDERM Q72H 30 Days #10 patch 06/07/24 Controlled Substance Measures - Controlled Substance Measures Is patient prescribed a controlled substance at discharge?: Yes When asked, does pt state using other controlled substances?: Yes If prescribed controlled substance>3 days was MAPS reviewed?: Yes If Rx opioid, was Start Talking consent form obtained?: Yes Was information provided regarding opioid addiction?: Yes
== END ==
LOC: PNWHC3 12:34
PROVIDERS: ATTEND Specialist
DX: M96.1 Postlaminectomy syndrome, not elsewhere classified (principal); M47.816 Spondylosis without myelopathy or radiculopathy, lumbar region; Z88.1 Allergy status to other antibiotic agents; Z88.0 Allergy status to penicillin; Z88.8 Allergy status to other drugs, medicaments and biological substances
CPT/HCPCS: 99211

== ENCOUNTER 2024-06-24 11:05 | Day surgery (SDC) | payer MEDICARE, OTHER ==
[2024-06-24 11:38] VITALS: TEMP 97
[2024-06-24 11:45] LABS: Glucose,Whole Blood 109 mg/dL (70-110)
[2024-06-24] MEDS ORDERED: LACTATED RINGERS 1,000 ML IV SCH (11:45)
[2024-06-24] MEDS ORDERED: methylPREDNISolone ACETATE 40 MG/ML 1 ML VIAL ONE (11:48)
[2024-06-24] MEDS ORDERED: IOPAMIDOL M200 10 ML VIAL ONE (11:48)
--- NOTE | 2024-06-24 12:03 | P.PCN ---
Date of Procedure: 06/24/24 Description of Procedure: PREOP DIAGNOSIS: Lumbar postlaminectomy syndrome, and lumbar radiculopathy POSTOP DIAGNOSIS: Lumbar postlaminectomy syndrome, and lumbar radiculopathy PROCEDURE: Caudal epidural steroid injection with epidurolysis and epidurogram under fluoroscopic guidance ANESTHESIA: Local with 1% lidocaine; IV sedation: None Surgeon: Nyla Sawant EBL: None Specimens removed: None Fluoroscopic image: saved to electronic medical records PROCEDURE INDICATION: The patient with post-laminectomy syndrome with low back pain and radiculopathy radiating down in both legs, here for a caudal epidural steroid injection with epidurolysis. PROCEDURE DESCRIPTION: The patient was seen and identified in the preoperative area. Risks, benefits, complications, and alternatives were discussed with the patient. The patient agreed to proceed with the procedure and signed the consent. Vital signs were stable. Patient was taken to the OR and time out was completed. The patient was placed in the prone position on procedure table and a pillow was placed under the abdomen to reduce lumbar lordosis. The lumbosacral area was prepped and draped in the usual sterile fashion. Vital signs were closely monitored during the procedure. Lateral view and the anterior-posterior plates of the sacrum were identified with infiltration of the area overlying the sacral hiatus with 1% lidocaine .A 17 gauge EPIMED epidural needle was used to advance through the sacral hiatus into the caudal epidural space. Isovue contrast 2 mL was injected and the position of the needle was verified to be in the midline. A Epimed catheter was introduced into the epidural space and was advanced towards the L5-S1 interspace under direct fluoroscopic guidance. Multiple passes were made with the catheter for lysis of epidural adhesions. Depo-Medrol 40mg with 10 ml of preservative free normal saline was injected slowly. Additional spread was seen to L4 under fluoroscopy. The needle and the catheter were withdrawn intact. EPIDUROGRAM: Isovue dye 1ml was injected with spread of the dye into the caudal epidural space and with spread cutoff at S1 prior to epidurolysis. Post epidurolysis dye 1 ml was injected and spread was seen to L4. COMPLICATIONS: None. DISPOSITION / PLANS: The patient was placed in a supine position and transferred to the recovery area in a stable condition for observation and was discharged from the recovery room after meeting discharge criteria. Home discharge instructions given to the patient by the staff. The patient was reexamined prior to discharge. The patient will schedule a follow up in the clinic in 4 weeks. Recommended to start Eliquis within 24 hours.
[2024-06-24 12:36] VITALS: BP 102/73; PULSE 87; RESP 17
--- NOTE | 2024-06-24 12:36 | FL ---
Fluoroscopy-guided pain management procedure HISTORY: Back pain COMPARISON: None TECHNIQUE: 18.5 seconds of fluoroscopy and 2 spot films of the lower lumbar spine were obtained. FINDINGS: Spot films demonstrate a needle overlying the sacrum with contrast the epidural space along the left aspect of the lower lumbar spine. IMPRESSION: Epidural injection of contrast and presumably steroids for back pain. [facility], , 06/24/2024 12:33 PM
== END 2024-06-24 12:35 | disposition home or self-care (01) ==
LOC: ORPAIN 11:05
DX: M96.1 Postlaminectomy syndrome, not elsewhere classified (principal); M54.16 Radiculopathy, lumbar region; E11.9 Type 2 diabetes mellitus without complications; I10 Essential (primary) hypertension; Z79.01 Long term (current) use of anticoagulants; Z79.899 Other long term (current) drug therapy; Z88.1 Allergy status to other antibiotic agents
CPT/HCPCS: 62323; Q9966; J1010; 62264

== ENCOUNTER → 2024-07-15 | Outpatient (CLI) | payer MEDICARE, OTHER ==
[2024-07-15 08:25] VITALS: BP 92/51; PULSE 96; RESP 16; TEMP 96.4
--- NOTE | 2024-07-15 15:18 | P.PAINPG ---
Objective - Vital Signs Vital signs: Intake & Output 07/14/24 07/15/24 07/15/24 18:59 06:59 18:59 Weight 79.832 kg PQRS Measure Charge Sheet Comment: HISTORY OF PRESENT ILLNESS: A 83 yr old female w daughter at side presents today w severe and chronic LBP > 1 yr secondary to L1-S1 post laminectomy syndrome for evaluation s/p Caudal EUSEBIO w Lysis and medication refills. Pt states she experienced 100% pain relief x 1 wk s/p procedure. Pt states pain level is provoked at 7 /10 in intensity, constant, localized in the lumbar spine, predominantly axial, throbbing in character w occasional shooting pain towards the R thigh. Pain is provoked by walking/ standing for periods > 10 min. Pain is alleviated by PT x 6 wks which ended in Nov 2023, physician guided home stretches daily since Nov 2023, ice, walker for ambulatory assistance, medications, repositioning and rest . Interventional procedures include BL TFESI L4-L5 x1 Medications include [place], Lyrica 100mg, Baclofen, Naproxen, Cymbalta, Tyl REVIEW OF ORGAN SYSTEMS: CONSTITUTIONAL: No fevers or chills. No recent weight loss. NEUROLOGICAL: + numbness and tingling along the distal extremities. No seizure disorders or headaches. MUSCULOSKELETAL: + pain PSYCHIATRIC: Denies current depression or suicidal thoughts. Physical Examinations : Constitutional : Cooperative , not in acute distress . Neurologic : Cranial nerve II to XII intact. No focal neurological deficits. Psychiatric : alert & oriented x 3. Matching mood & appropriate affect. Judgment & insight intact. Musculoskeletal : Cervical Spine Motor strength in the deltoid and biceps: Normal right side. Normal Left side Motor strength biceps and the wrist extensors: Normal right side . Normal left side Motor strength in the triceps muscle: Normal right side. Normal left side Deep tendon reflexes: Normal at the biceps. Normal at Brachioradialis. Normal at triceps Vertebral body tenderness to deep palpation over Cervical facet loading test: positive bilaterally Spurling test: positive bilaterally Neck distraction test: positive bilaterally Romero sign: positive bilaterally Lumbar spine +Incisional scar intact Motor strength lower extremities ,thigh and legs 5/5 Right side , 5/5 Left side Deep tendon reflexes : Normal Knee Jerk. Normal Ankle Jerk Vertebral body tenderness over L5 Chakraborty Test positive R> L L5-S1 Lumbar facet Loading Test: positive Right / positive Left Range of motion of the lumbar spine Flexion 30 degrees, extension 10 degrees Straight Leg Raise test: Left/ Right positive at degrees Sonja test: positive right / positive left. Severe tenderness over the Sacroiliac joint on the Right / Left sides Gaenslen test: positive bilaterally Seated flexion test: positive bilaterally. Sacral spine : Severe tenderness over the Sacroiliac joint: right side / left side Range of motion: Flexion of the lumbar spine <60 degrees Range of motion: Extension of the lumbar spine <20 degrees Gaenslen's Test positive Sonja test: positive right side / left side Thigh Thrust Test Sacral Thrust Test Imaging: CT lumbar spine from 03/11/24 completed and awaiting uploading to records Assessment/ Plan : L1-S1 post laminectomy syndrome Recommendation of medication management. Discontinue Percocet 10/325mg #90 and Fentanyl 25mcg/hr #10. Opiate/ narcotic agreement for [place] 7.5/325mg #120 signed 07/15/24. Use, side effects, adverse reactions, safe storage discussed. Pt & [id number] acknowledged understanding. All questions answered. I have spent greater than 30 minutes on patient care today. Dr Bergman was available by phone for the evaluation of this patient. The time was used to review the medical records including relevant urine studies and Prescription history (MAPs), review of the available imaging, evaluation and examination of the patient, coordination of care with the medical staff and if applicable referring physicians, as well as creation of the medical record - Pain Location Bilateral Lower Back Non-Pharmacological Interventions: Heat, Ice, Inactivity, Position/Reposition, Sitting Pharmacological Interventions: Epidural, PRN Medication, Scheduled Medication, Topical Medication PQRS Narrative: Narcotic Agreement Date Signed 05/20/24 Hx Alcohol Use (MH) No Home Medications: Ambulatory Orders allopurinoL [Zyloprim] 100 mg PO DAILY 09/21/20 Cholecalciferol [Vitamin D3 (25 Mcg = 1000 Iu)] 25 mcg PO DAILY 11/04/22 Losartan Potassium [Cozaar] 100 mg PO DAILY 11/04/22 Vitamin B Complex 1 cap PO DAILY 11/04/22 Apixaban [Eliquis] 5 mg PO BID #60 tab 11/13/22 DULoxetine HCL [Cymbalta] 60 mg PO QAM 01/03/23 Multivit-Min/Iron/Folic/Lutein [Centrum Silver Women Tablet] 1 tab PO DAILY 01/03/23 Dapagliflozin Propanediol [Farxiga] 10 mg PO DAILY 07/17/23 Ezetimibe [Zetia] 10 mg PO DAILY 07/17/23 Furosemide [Lasix] 20 mg PO DAILY PRN 07/17/23 Verapamil HCl [Verapamil ER] 120 mg PO DAILY 07/17/23 Acetaminophen Tab [Tylenol] 650 mg PO Q6H PRN 09/12/23 Azo D-Mannose 500mg 2,000 mg PO DAILY 09/12/23 L.acidoph,Paracasei, B.lactis [Probiotic] 1 cap PO DAILY 09/12/23 Melatonin 10 mg PO HS PRN 09/12/23 Potassium Chloride [Klor-Con M10] 10 meq PO DAILY PRN 09/12/23 Pregabalin [Lyrica] 200 mg PO BID 09/12/23 Ubidecarenone [Coenzyme Q10] 200 mg PO DAILY 09/12/23 hydroCHLOROthiazide [Hydrodiuril] 25 mg PO DAILY 09/12/23 Cyclobenzaprine [Flexeril] 10 mg PO TID PRN 30 Days #90 tab 06/07/24 DULoxetine HCL [Cymbalta] 30 mg PO HS 06/22/24 Semaglutide [Ozempic] 0.5 mg SQ TH 06/22/24 HYDROcodone/APAP 7.5-325MG [[place] 7.5-325] 1 tab PO Q6HR PRN 30 Days #120 tab 07/15/24 HYDROcodone/APAP 7.5-325MG [[place] 7.5-325] 1 tab PO QID PRN 30 Days #120 tab 07/15/24 Controlled Substance Measures - Controlled Substance Measures Is patient prescribed a controlled substance at discharge?: Yes When asked, does pt state using other controlled substances?: Yes If prescribed controlled substance>3 days was MAPS reviewed?: Yes If Rx opioid, was Start Talking consent form obtained?: Yes Was information provided regarding opioid addiction?: Yes
== END ==
LOC: PNWHC3 08:01
PROVIDERS: ATTEND Specialist
DX: M47.816 Spondylosis without myelopathy or radiculopathy, lumbar region (principal); M96.1 Postlaminectomy syndrome, not elsewhere classified; Z88.1 Allergy status to other antibiotic agents; Z88.0 Allergy status to penicillin; Z88.8 Allergy status to other drugs, medicaments and biological substances
CPT/HCPCS: 99211

== ENCOUNTER 2024-07-20 16:25 | Inpatient (IN) | payer MEDICARE, OTHER ==
--- NOTE | 2024-07-20 16:39 | ED ---
Female Urogenital HPI - General Source: patient, family, RN notes reviewed Mode of arrival: wheelchair Limitations: no limitations - History of Present Illness MD Complaint: dysuria Onset/Timin -: days(s) <Varun Fatima - Last Filed: 07/20/24 16:44> <Tucker Bush - Last Filed: 07/20/24 21:15> - General Chief complaint: Urogenital Stated complaint: abd pain, chronic uti Time Seen by Provider: 07/20/24 16:37 - History of Present Illness Initial comments: Quick note: This is an 84-year-old female presenting with daughter complaining of dysuria and altered mental status x 1 day. Daughter states patient is norm ally ANO x 4 and is acting confused, not at baseline. States patient has a history of UTI with similar associated confusion in the past. (Varun Fatima) - Related Data Home Medications Medication Instructions Recorded Confirmed allopurinoL [Zyloprim] 100 mg PO DAILY 09/21/20 07/15/24 Cholecalciferol [Vitamin D3 (25 25 mcg PO DAILY 11/04/22 07/15/24 Mcg = 1000 Iu)] Losartan Potassium [Cozaar] 100 mg PO DAILY 11/04/22 07/15/24 Vitamin B Complex 1 cap PO DAILY 11/04/22 07/15/24 DULoxetine HCL [Cymbalta] 60 mg PO QAM 01/03/23 07/15/24 Multivit-Min/Iron/Folic/Lutein 1 tab PO DAILY 01/03/23 07/15/24 [Centrum Silver Women Tablet] Dapagliflozin Propanediol [Farxiga] 10 mg PO DAILY 07/17/23 07/15/24 Ezetimibe [Zetia] 10 mg PO DAILY 07/17/23 07/15/24 Furosemide [Lasix] 20 mg PO DAILY PRN 07/17/23 07/15/24 Verapamil HCl [Verapamil ER] 120 mg PO DAILY 07/17/23 07/15/24 Acetaminophen Tab [Tylenol] 650 mg PO Q6H PRN 09/12/23 07/15/24 Azo D-Mannose 500mg 2,000 mg PO DAILY 09/12/23 07/15/24 L.acidoph,Paracasei, B.lactis 1 cap PO DAILY 09/12/23 07/15/24 [Probiotic] Melatonin 10 mg PO HS PRN 09/12/23 07/15/24 Potassium Chloride [Klor-Con M10] 10 meq PO DAILY PRN 09/12/23 07/15/24 Pregabalin [Lyrica] 200 mg PO BID 09/12/23 07/15/24 Ubidecarenone [Coenzyme Q10] 200 mg PO DAILY 09/12/23 07/15/24 hydroCHLOROthiazide [Hydrodiuril] 25 mg PO DAILY 09/12/23 07/15/24 DULoxetine HCL [Cymbalta] 30 mg PO HS 06/22/24 07/15/24 Semaglutide [Ozempic] 0.5 mg SQ TH 06/22/24 07/15/24 Previous Rx's Medication Instructions Recorded Apixaban [Eliquis] 5 mg PO BID #60 tab 11/13/22 Cyclobenzaprine [Flexeril] 10 mg PO TID PRN 30 Days #90 tab 06/07/24 HYDROcodone/APAP 7.5-325MG [[place] 1 tab PO Q6HR PRN 30 Days #120 tab 07/15/24 7.5-325] HYDROcodone/APAP 7.5-325MG [[place] 1 tab PO QID PRN 30 Days #120 tab 07/15/24 7.5-325] Allergies Allergy/AdvReac Type Severity Reaction Status Date / Time cephalexin [From Keflex] Allergy Rash/Hives Verified 07/20/24 16:33 clindamycin Allergy Rash/Hives Verified 07/20/24 16:33 Penicillins Allergy Unknown Verified 07/20/24 16:33 oxybutynin [From Ditropan] AdvReac Hallucinati Verified 07/20/24 16:33 ons Review of Systems ROS Other: All systems not noted in ROS Statement are negative. <Varun Fatima - Last Filed: 07/20/24 16:44> ROS Other: All systems not noted in ROS Statement are negative. <Tucker Bush - Last Filed: 07/20/24 21:15> ROS Statement: Those systems with pertinent positive or pertinent negative responses have been documented in the HPI. Past Medical History Past Medical History: Atrial Fibrillation, CVA/TIA, Diabetes Mellitus, Fibromyalgia, GERD/Reflux, Hypertension, Pneumonia, Pulmonary Embolus (PE), Rheumatoid Arthritis (RA) Additional Past Medical History / Comment(s): recurrent UTIs, cataracts, recent TIA, hx. of PE. History of Any Multi-Drug Resistant Organisms: None Reported Past Surgical History: Back Surgery, Hysterectomy, Joint Replacement, Orthopedic Surgery Additional Past Surgical History / Comment(s): 5 back surgery since 2014, total hysterectomy,R knee replacement Past Anesthesia/Blood Transfusion Reactions: No Reported Reaction Past Psychological History: No Psychological Hx Reported Smoking Status: Never smoker - Past Family History Mother Family Medical History: CVA/TIA, Hyperlipidemia, Hypertension, Myocardial Infarction ([place]) <Vraun Fatima - Last Filed: 07/20/24 16:44> General Exam Limitations: no limitations <Varun Fatima - Last Filed: 07/20/24 16:44> - General Exam Comments Initial Comments: Visual Physical Exam Vital signs reviewed General: Well-appearing, nontoxic, no acute distress. Patient seated in wheelchair Head: Normocephalic, atraumatic Eyes: PERRLA, EOMI ENT: Airway patent Chest: Nonlabored breathing Skin: No visual rash, normal skin tone Neuro: A&O x 2 Musculoskeletal: No gross abnormalities (Varun Fatima) Course Vital Signs 07/20/24 16:26 Temperature 98.5 F Pulse Rate 98 Respiratory 22 Rate Blood Pressure 161/93 O2 Sat by Pulse 97 Oximetry Medical Decision Making <Varun Fatima - Last Filed: 07/20/24 16:44> - Lab Data Result diagrams: 07/20/24 17:34 07/20/24 17:34 <Tucker Bush - Last Filed: 07/20/24 21:15> - Medical Decision Making I completed the quick note portion of this chart signed CORAZON White (Varun Fatima) Was pt. sent in by a medical professional or institution (ROSALINA Black, SEARCH STRATEGIST, urgent care, hospital, or prison...) When possible be specific @ -No Did you speak to anyone other than the patient for history (EMS, parent, family, police, friend...)? What history was obtained from this source @ -No Did you review nursing and triage notes (agree or disagree)? Why? @ -I reviewed and agree with nursing and triage notes Were old charts reviewed (outside hosp., previous admission, EMS record, old EKG, old radiological studies, urgent care reports/EKG's, prison records)? Report findings @ -No old charts were reviewed Differential Diagnosis? @ -Differential Altered Mental Status: Hypoglycemia, DKA, hypercapnia, ETOH, overdose, CO poisoning, trauma, myxedema coma, HTN encephalopathy, infection, encephalitis, psychosis, intercranial hemorrhage, hepatic encephalopathy, meningitis, CVA, this is not meant to be an all-inclusive list EKG interpreted by me (3pts min.). @ -As above X-rays interpreted by me (1pt min.). @ -None done CT interpreted by me (1pt min.). @ -None done U/S interpreted by me (1pt. min.). @ -None done What testing was considered but not performed or refused? (CT, X-rays, U/S, labs)? Why? @ -None What meds were considered but not given or refused? Why? @ -None Did you discuss the management of the patient with other professionals (professionals i.e. , PA, SEARCH STRATEGIST, lab, RT, psych nurse, social worker aide, manager database, teacher, ground intelligence officer, case resolution specialist)? Give summary @ -I spoke with Dr. Austin he agreed to admit the patient admit the patient I wrote admitting orders Was smoking cessation discussed for >3mins.? @ -No Was critical care preformed (if so, how long)? @ -No Were there social determinants of health that impacted care today? How? (Homelessness, low income, unemployed, alcoholism, drug addiction, transportation, low edu. Level, literacy, decrease access to med. care, senior living, rehab)? @ -No Was there de-escalation of care discussed even if they declined (Discuss DNR or withdrawal of care, Hospice)? DNR status @ -No What co-morbidities impacted this encounter? (DM, HTN, Smoking, COPD, CAD, Cancer, CVA, ARF, Chemo, Hep., AIDS, mental health diagnosis, sleep apnea, morbid obesity)? @ -None Was patient admitted / discharged? Hospital course, mention meds given and route, prescriptions, significant lab abnormalities, going to OR and other pertinent info. @ -Patient has a urinary tract infection patient was stated on Levaquin in the emergency department and will continue on Levaquin as an inpatient Undiagnosed new problem with uncertain prognosis? @ -No Drug Therapy requiring intensive monitoring for toxicity (Heparin, Nitro, Insulin, Cardizem)? @ -No Were any procedures done? @ -No Diagnosis/symptom? @ -Urinary tract infection Acute, or Chronic, or Acute on Chronic? @ -Acute Uncomplicated (without systemic symptoms) or Complicated (systemic symptoms)? @ -Complicated Side effects of treatment? @ -No Exacerbation, Progression, or Severe Exacerbation? @ -No Poses a threat to life or bodily function? How? (Chest pain, [place], [place], pneumonia, PE, COPD, DKA, ARF, appy, cholecystitis, CVA, Diverticulitis, Homicidal, Suicidal, threat to staff... and all critical care pts) @ -Yes this can lead to sepsis and endorgan dysfunction Diagnosis/symptom? @ -Altered mental status Acute, or Chronic, or Acute on Chronic? @ -Acute Uncomplicated (without systemic symptoms) or Complicated (systemic symptoms)? @ -Complicate Side effects of treatment? @ -None Exacerbation, Progression, or Severe Exacerbation] @ -No Poses a threat to life or bodily function? @ -No (Tucker Bush) - Lab Data Lab Results 07/20/24 07/20/24 07/20/24 Range/Units 17:34 17:34 17:34 WBC 4.5 (3.8-10.6) k/uL RBC 4.66 (3.80-5.40) m/uL Hgb 13.2 (11.4-16.0) gm/dL Hct 39.8 (34.0-46.0) % MCV 85.5 (80.0-100.0) fL MCH 28.3 (25.0-35.0) pg MCHC 33.1 (31.0-37.0) g/dL RDW 16.2 H (11.5-15.5) % Plt Count 167 (150-450) k/uL MPV 7.9 Neutrophils % 71 % Lymphocytes % 10 % Monocytes % 13 % Eosinophils % 3 % Basophils % 0 % Neutrophils # 3.2 (1.3-7.7) k/uL Lymphocytes # 0.5 L (1.0-4.8) k/uL Monocytes # 0.6 (0-1.0) k/uL Eosinophils # 0.1 (0-0.7) k/uL Basophils # 0.0 (0-0.2) k/uL Anisocytosis Slight PT 11.7 (10.0-12.5) sec INR 1.1 (<1.2) APTT 23.9 (22.0-30.0) sec Sodium 139 (137-145) mmol/L Potassium 3.8 (3.5-5.1) mmol/L Chloride 104 (98-107) mmol/L Carbon Dioxide 23 (22-30) mmol/L Anion Gap 12 mmol/L BUN 15 (7-17) mg/dL Creatinine 0.72 (0.52-1.04) mg/dL Est GFR (CKD-EPI)AfAm >90 (>60 ml/min/1.73 sqM) Est GFR (CKD-EPI)NonAf 79 (>60 ml/min/1.73 sqM) Glucose 128 H (74-99) mg/dL Calcium 9.3 (8.4-10.2) mg/dL Total Bilirubin 0.7 (0.2-1.3) mg/dL AST 43 H (14-36) U/L ALT 20 (4-34) U/L Alkaline Phosphatase 59 (38-126) U/L Troponin I (0.000-0.034) ng/mL Total Protein 6.5 (6.3-8.2) g/dL Albumin 4.2 (3.5-5.0) g/dL Urine Color Urine Appearance (Clear) Urine pH (5.0-8.0) Ur Specific [place] (1.001-1.035) Urine Protein (Negative) Urine Glucose (UA) (Negative) Urine Ketones (Negative) Urine Blood (Negative) Urine Nitrite (Negative) Urine Bilirubin (Negative) Urine Urobilinogen (<2.0) mg/dL Ur Leukocyte Esterase (Negative) Urine RBC (0-5) /hpf Urine WBC (0-5) /hpf Ur Squamous Epith Cells (0-4) /hpf Urine Bacteria (None) /hpf Urine Mucus (None) /hpf 07/20/24 07/20/24 Range/Units 17:34 20:30 WBC (3.8-10.6) k/uL RBC (3.80-5.40) m/uL Hgb (11.4-16.0) gm/dL Hct (34.0-46.0) % MCV (80.0-100.0) fL MCH (25.0-35.0) pg MCHC (31.0-37.0) g/dL RDW (11.5-15.5) % Plt Count (150-450) k/uL MPV Neutrophils % % Lymphocytes % % Monocytes % % Eosinophils % % Basophils % % Neutrophils # (1.3-7.7) k/uL Lymphocytes # (1.0-4.8) k/uL Monocytes # (0-1.0) k/uL Eosinophils # (0-0.7) k/uL Basophils # (0-0.2) k/uL Anisocytosis PT (10.0-12.5) sec INR (<1.2) APTT (22.0-30.0) sec Sodium (137-145) mmol/L Potassium (3.5-5.1) mmol/L Chloride (98-107) mmol/L Carbon Dioxide (22-30) mmol/L Anion Gap mmol/L BUN (7-17) mg/dL Creatinine (0.52-1.04) mg/dL Est GFR (CKD-EPI)AfAm (>60 ml/min/1.73 sqM) Est GFR (CKD-EPI)NonAf (>60 ml/min/1.73 sqM) Glucose (74-99) mg/dL Calcium (8.4-10.2) mg/dL Total Bilirubin (0.2-1.3) mg/dL AST (14-36) U/L ALT (4-34) U/L Alkaline Phosphatase (38-126) U/L Troponin I <0.012 (0.000-0.034) ng/mL Total Protein (6.3-8.2) g/dL Albumin (3.5-5.0) g/dL Urine Color Yellow Urine Appearance Cloudy H (Clear) Urine pH 6.5 (5.0-8.0) Ur Specific [place] 1.020 (1.001-1.035) Urine Protein Trace H (Negative) Urine Glucose (UA) 4+ H (Negative) Urine Ketones 2+ H (Negative) Urine Blood Large H (Negative) Urine Nitrite Positive H (Negative) Urine Bilirubin Negative (Negative) Urine Urobilinogen <2.0 (<2.0) mg/dL Ur Leukocyte Esterase Large H (Negative) Urine RBC >182 H (0-5) /hpf Urine WBC 89 H (0-5) /hpf Ur Squamous Epith Cells <1 (0-4) /hpf Urine Bacteria Moderate H (None) /hpf Urine Mucus Rare H (None) /hpf Disposition <Varun Fatima - Last Filed: 07/20/24 16:44> Time of Disposition: 21:15 <Tucker Bush - Last Filed: 07/20/24 21:15> Clinical Impression: Urinary tract infection, Altered mental status Disposition: ADMITTED IP TO THIS HOSP Referrals: Olya Austin MD [Primary Care Provider] - 1-2 days
[2024-07-20 17:45] LABS: Anisocytosis Slight; Basophils % (A) 0 %; Eosinophils # (A) 0.1 k/uL (0-0.7); Eosinophils % (A) 3 %; HCT 39.8 % (34.0-46.0); HGB 13.2 gm/dL (11.4-16.0); Lymphocytes # (A) 0.5 k/uL (1.0-4.8); Lymphocytes % (A) 10 %; MCH 28.3 pg (25.0-35.0); MCHC 33.1 g/dL (31.0-37.0); MCV 85.5 fL (80.0-100.0); Mean Platelet Volume 7.9; Monocytes # (A) 0.6 k/uL (0-1.0); Monocytes % (A) 13 %; Neutrophils # (A) 3.2 k/uL (1.3-7.7); Neutrophils % (A) 71 %; Platelet Count 167 k/uL (150-450); RBC 4.66 m/uL (3.80-5.40); RDW 16.2 % (11.5-15.5); WBC 4.5 k/uL (3.8-10.6)
[2024-07-20 17:54] LABS: INR 1.1 (<1.2); Partial Thromboplastin Time 23.9 sec (22.0-30.0); Prothrombin Time 11.7 sec (10.0-12.5)
[2024-07-20 18:15] LABS: ALT 20 U/L (4-34); AST 43 U/L (14-36); African American GFR (CKD) >90 (>60 ml/min/1.73 sqM); Albumin 4.2 g/dL (3.5-5.0); Alkaline Phosphatase 59 U/L (38-126); Anion Gap 12 mmol/L; Blood Urea Nitrogen 15 mg/dL (7-17); Calcium 9.3 mg/dL (8.4-10.2); Carbon Dioxide 23 mmol/L (22-30); Chloride 104 mmol/L (98-107); Glucose 128 mg/dL (74-99); Non-African American GFR(CKD) 79 (>60 ml/min/1.73 sqM); Potassium 3.8 mmol/L (3.5-5.1); Sodium 139 mmol/L (137-145); Total Bilirubin 0.7 mg/dL (0.2-1.3); Total Protein 6.5 g/dL (6.3-8.2)
[2024-07-20 20:54] LABS: Appearance,Urine Cloudy (Clear); Bacteria,Urine Moderate /hpf; Bilirubin,Urine Negative (Negative); Blood,Urine Large (Negative); Color,Urine Yellow; Glucose,Urine (UA) 4+ (Negative); Leukocyte Esterase,Urine Large (Negative); Mucus,Urine Rare /hpf; Nitrite,Urine Positive (Negative); PH, Urine 6.5 (5.0-8.0); Protein,Urine Trace (Negative); RBC,Urine >182 /hpf (0-5); Squamous Epithelial Cell,Urine <1 /hpf (0-4); Urobilinogen,Urine <2.0 mg/dL (<2.0); WBC,Urine 89 /hpf (0-5)
[2024-07-20 21:00] LABS: Ketones,Urine 2+ (Negative)
--- NOTE | 2024-07-20 21:05 | XR ---
EXAMINATION TYPE: XR chest 1V DATE OF EXAM: 07/20/2024 8:54 PM COMPARISON: None. CLINICAL INDICATION: Female, 84 years old with history of AMS, TECHNIQUE: XR chest 1V view(s) obtained. FINDINGS: The heart size is enlarged. The pulmonary vasculature is normal. The lungs are clear. IMPRESSION: 1. No acute pulmonary process. [facility], , 07/20/2024 9:03 PM
[2024-07-20] MEDS: SODIUM CHLORIDE 0.9% 1,000 ML IV ONE (22:03)
[2024-07-20] MEDS: LEVOFLOXACIN 750MG-D5W PMX 750 MG in DEXTROSE/WATER 1 150ML.BAG IVPB STA (22:05)
[2024-07-20] MEDS: LORazepam 2 MG/ML INJ IV STA (22:31)
[2024-07-20] MEDS: HYDROcodone/APAP 7.5-325MG 1 EACH TAB PO PRN (23:51)
[2024-07-20] MEDS: QUEtiapine 25 MG TAB PO STA (23:53)
[2024-07-21 03:34] LABS: Glucose,Whole Blood 123 mg/dL (70-110)
[2024-07-21 07:06] LABS: Glucose,Whole Blood 140 mg/dL (70-110)
[2024-07-21 12:11] LABS: Glucose,Whole Blood 125 mg/dL (70-110)
[2024-07-21] MEDS ORDERED: CYCLOBENZAPRINE 10 MG TAB PO PRN (13:21)
[2024-07-21] MEDS ORDERED: POTASSIUM CHLORIDE ER 10 MEQ TAB.ER.PRT PO PRN (13:21)
[2024-07-21] MEDS ORDERED: FUROSEMIDE 20 MG TAB PO PRN (13:21)
--- NOTE | 2024-07-21 14:42 | P.HPIM ---
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 Patient was brought into the emergency department at [facility] yesterday with mental status changes while she was living at her assisted living facility, patient became quite confused and her daughter was suspicious for urinary tract infection, she was seen and evaluated in the emergency department, she did not have any leukocytosis, however her urine was quite positive, she was admitted to the hospital for acute urinary tract infection with SIRS along with metabolic encephalopathy, she was started initially on IV antibiotic Levaquin x 1, and thus was discontinued by infectious ease in the doctor and she was started on Azactam 2 g piggyback every 8 hours, she was admitted to hospital blood cultures, urine cultures were obtained, patient was placed on IV fluid resuscitation in the form of normal saline 75 cc an hour because of metabolic encephalopathy as well as because sepsis, patient also was confused quite a bit yesterday, she did receive a dose of Seroquel 25 mg at bedtime. REVIEW OF SYSTEMS Constitutional: No fever, no chills, no night sweats. No weight change. positive for weakness, fatigue or lethargy. No daytime sleepiness. HEENT: No headache. No blurred vision or double vision, no loss of vision. Chronic loss of Hearing, no ringing in the ears, no dizziness. No nasal dr ainage or congestion. No epistaxis. No sore throat. Lungs: No shortness of breath, cough, no sputum production. No wheezing. Cardiovascular: No chest pain, no lower extremity edema. No palpitations. No paroxysmal nocturnal dyspnea. No orthopnea. No lightheadedness or dizziness. No syncopal episodes. Abdominal: No abdominal pain. No nausea, vomiting. No diarrhea. No constipation. No bloody or tarry stools. No loss of appetite. Genitourinary: positive for dysuria, positive for frequency, urgency. No urinary retention. Musculoskeletal: No myalgias. Noted muscle weakness, noted gait dysfunction, fall at home. No back pain. No neck pain. Right knee discomfort Integumentary: Right knee wounds. No rash or pruritus. No unusual bruising. No change in hair or nails. Neurologic: Noted aphasia. No facial droop. Noted change in mentation. No head injury. No headache. No paralysis. No paresthesia. Psychiatric: No depression. No anxiety. No mood swings.positive for mental status changes Endocrine: No abnormal blood sugars. No weight change. No excessive sweating or thirst. No cold intolerance. 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 SURGICAL HISTORY Cataract surgery left 20/20 Tonsillectomy and adenoidectomy Laminectomy with fusion of L1-S1 Lumbar discitis post-hardware removal SI joint fusion 2 Spinal cord stimulator Seroma on the back post-wound VAC line colonoscopy with polyps 2018. SOCIAL HISTORY Patient is a lifelong nonsmoker, no alcohol abuse, no illicit drug use. FAMILY HISTORY Father at age 80. Mother at the age of 86 from myocardial infarction had history of hypertension, hyperlipidemia. Patient has one brother with no major medical problems and one sister with no major medical problems. Patient has 3 daughters with no major medical problems. PHYSICAL EXAMINATION Gen: This is an 84-year-old obese female appears confused getting better today in the morning. HEENT: Head is atraumatic, normocephalic. Pupils equal, round. Sclerae is anicteric. NECK: Supple. No JVD. No lymphadenopathy. No thyromegaly. LUNGS: Clear to auscultation. No wheezes or rhonchi. No intercostal retractions. HEART: First heart sound is depressed, second heart sound is normal, 2/6 systolic ejection murmur at the left sternal border. ABDOMEN: Soft, mild tenderness to the epigastric area, no rebound or guarding positive bowel sounds EXTREMITIES: +1 pedal edema. No calf tenderness, DP+2 bilaterally. NEUROLOGICAL: Patient is awake, alert and oriented to person and place, CN II- XII are grossly intact muscle power 4/5 in bilateral upper and lower extremities. ASSESSMENT AND PLAN 1. Metabolic encephalopathy likely related to urinary tract infection with source. Continue IV fluid resuscitation, continue patient on IV antibiotic in the form of Azactam 2 g IV piggyback every 8 hours, urine culture, blood culture, infectious ease consultation appreciated. 2. Paroxysmal Atrial fibrillation. Continue Eliquis 5 mg orally twice every day. Continue verapamil 120 mg daily. 3. Hypertension and hypertensive cardiovascular disease. Continue patient on hydrochlorothiazide 25 mg daily, losartan 100 mg daily, and verapamil 120 mg daily. Monitor the patient blood pressure very closely. 5. Hyperlipidemia. we will continue Zetia 10 mg po daily patient is not able to tolerate statin at this point in time. She can be offered Repatha as an outpatient. 6. Diabetes mellitus type 2. Continue patient on add NovoLog scale before meals and at bedtime, we will continue with Farxiga 10 mg po daily we will continue with Ozempic 0.5 mg subcutaneously every week., 7. Diabetic polyneuropathy. Continue Duloxetin 60 mg po daily continue pregabalin 50 mg orally twice every day for 8. 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 Continue pregabalin 200 mg orally twice every day. Continue patient on current pain management as well. 9. Idiopathic gout. Continue allopurinol 100 mg daily. 10. Obstructive sleep apnea. Continue CPAP. 11. GI prophylaxis and gastroesophageal reflux disease. Continue Protonix 40 mg po daily 12. DVT prophylaxis. Continue Eliquis 5 mg orally twice every day. 14. Diabetic polyneuropathy. Continue pregabalin 200 mg orally twice every day. 15. Admit to inpatient. Estimated length of stay 2 midnights 16. Full code. Past Medical History Past Medical History: Atrial Fibrillation, CVA/TIA, Diabetes Mellitus, Fibromyalgia, GERD/Reflux, Hypertension, Pneumonia, Pulmonary Embolus (PE), Rheumatoid Arthritis (RA) Additional Past Medical History / Comment(s): recurrent UTIs, cataracts, recent TIA, hx. of PE. History of Any Multi-Drug Resistant Organisms: None Reported Past Surgical History: Back Surgery, Hysterectomy, Joint Replacement, Orthopedic Surgery Additional Past Surgical History / Comment(s): 5 back surgery since 2014, total hysterectomy,R knee replacement Past Anesthesia/Blood Transfusion Reactions: No Reported Reaction Past Psychological History: No Psychological Hx Reported Smoking Status: Never smoker Past Alcohol Use History: Rare Past Drug Use History: None Reported - Past Family History Mother Family Medical History: CVA/TIA, Hyperlipidemia, Hypertension, Myocardial Infarction ([place]) Medications and Allergies Home Medications Medication Instructions Recorded Confirmed Type allopurinoL [Zyloprim] 100 mg PO DAILY 09/21/20 07/21/24 History Cholecalciferol [Vitamin D3 (25 25 mcg PO DAILY 11/04/22 07/21/24 History Mcg = 1000 Iu)] Losartan Potassium [Cozaar] 100 mg PO DAILY 11/04/22 07/21/24 History Vitamin B Complex 1 cap PO DAILY 11/04/22 07/21/24 History Apixaban [Eliquis] 5 mg PO BID #60 tab 11/13/22 07/21/24 Rx DULoxetine HCL [Cymbalta] 60 mg PO DAILY 01/03/23 07/21/24 History Multivit-Min/Iron/Folic/Lutein 1 tab PO DAILY 01/03/23 07/21/24 History [Centrum Silver Women Tablet] Dapagliflozin Propanediol [Farxiga] 10 mg PO DAILY 07/17/23 07/21/24 History Ezetimibe [Zetia] 10 mg PO DAILY 07/17/23 07/21/24 History Furosemide [Lasix] 20 mg PO DAILY PRN 07/17/23 07/21/24 History Acetaminophen Tab [Tylenol] 650 mg PO Q6H PRN 09/12/23 07/21/24 History Azo D-Mannose 500mg 2,000 mg PO DAILY 09/12/23 07/21/24 History L.acidoph,Paracasei, B.lactis 1 cap PO DAILY 09/12/23 07/21/24 History [Probiotic] Melatonin 10 mg PO HS PRN 09/12/23 07/21/24 History Potassium Chloride [Klor-Con M10] 10 meq PO DAILY PRN 09/12/23 07/21/24 History Pregabalin [Lyrica] 200 mg PO BID 09/12/23 07/21/24 History Ubidecarenone [Coenzyme Q10] 200 mg PO DAILY 09/12/23 07/21/24 History hydroCHLOROthiazide [Hydrodiuril] 25 mg PO DAILY 09/12/23 07/21/24 History Cyclobenzaprine [Flexeril] 10 mg PO TID PRN 30 Days #90 tab 06/07/24 07/21/24 Rx DULoxetine HCL [Cymbalta] 30 mg PO HS 06/22/24 07/21/24 History HYDROcodone/APAP 7.5-325MG [[place] 1 tab PO QID PRN 07/21/24 07/21/24 History 7.5-325] Semaglutide [Ozempic] 1 mg SQ Q7D 07/21/24 07/21/24 History Verapamil HCl [[place]] 120 mg PO DAILY 07/21/24 07/21/24 History Allergies Allergy/AdvReac Type Severity Reaction Status Date / Time cephalexin [From Keflex] Allergy Rash/Hives Verified 07/21/24 11:07 clindamycin Allergy Rash/Hives Verified 07/21/24 11:07 Penicillins Allergy Unknown Verified 07/21/24 11:07 oxybutynin [From Ditropan] AdvReac Hallucinati Verified 07/21/24 11:07 ons Physical Exam Vitals: Vital Signs Temp Pulse Pulse Pulse Resp BP BP 07/21/24 07:07 98.4 F 92 20 148/82 07/21/24 03:10 98.1 F 114 H 22 135/78 07/21/24 02:59 114 H 22 07/21/24 02:33 92 16 146/83 07/21/24 01:15 94 16 154/94 07/20/24 22:20 100 19 166/121 07/20/24 16:26 98.5 F 98 22 161/93 Pulse Ox 07/21/24 07:07 97 07/21/24 03:10 92 L 07/21/24 02:59 07/21/24 02:33 96 07/21/24 01:15 94 L 07/20/24 22:20 98 07/20/24 16:26 97 Intake and Output 07/20/24 07/21/24 07/21/24 22:59 06:59 14:59 Output Total 50 296 Balance -50 -296 Output: Urine 50 Post Void Residual 296 Other: Voiding Method External Catheter External Catheter Incontinent External Catheter # Voids 1 Weight 84.822 kg Results CBC & Chem 7: 07/20/24 17:34 07/20/24 17:34 Labs: Abnormal Lab Results - Last 24 Hours (Table) 07/20/24 07/20/24 07/20/24 Range/Units 17:34 17:34 20:30 RDW 16.2 H (11.5-15.5) % Lymphocytes # 0.5 L (1.0-4.8) k/uL Glucose 128 H (74-99) mg/dL POC Glucose (mg/dL) (70-110) mg/dL AST 43 H (14-36) U/L Urine Appearance Cloudy H (Clear) Urine Protein Trace H (Negative) Urine Glucose (UA) 4+ H (Negative) Urine Ketones 2+ H (Negative) Urine Blood Large H (Negative) Urine Nitrite Positive H (Negative) Ur Leukocyte Esterase Large H (Negative) Urine RBC >182 H (0-5) /hpf Urine WBC 89 H (0-5) /hpf Urine Bacteria Moderate H (None) /hpf Urine Mucus Rare H (None) /hpf 07/21/24 07/21/24 07/21/24 Range/Units 03:31 07:05 12:09 RDW (11.5-15.5) % Lymphocytes # (1.0-4.8) k/uL Glucose (74-99) mg/dL POC Glucose (mg/dL) 123 H 140 H 125 H (70-110) mg/dL AST (14-36) U/L Urine Appearance (Clear) Urine Protein (Negative) Urine Glucose (UA) (Negative) Urine Ketones (Negative) Urine Blood (Negative) Urine Nitrite (Negative) Ur Leukocyte Esterase (Negative) Urine RBC (0-5) /hpf Urine WBC (0-5) /hpf Urine Bacteria (None) /hpf Urine Mucus (None) /hpf Thrombosis Risk Factor Assmnt - Choose All That Apply Any of the Below Risk Factors Present?: No Other Risk Factors: Yes Each Risk Factor Represents 3 Points: Age 75 years or older Other congenital or acquired thrombophilia - If yes, enter type in comment: No Thrombosis Risk Factor Assessment Total Risk Factor Score: 3 Thrombosis Risk Factor Assessment Level: Moderate Risk
[2024-07-21] MEDS: DULoxetine HCL 30 MG CAPSULE.DR PO SCH (14:43)
[2024-07-21] MEDS: EZETIMIBE 10 MG TAB PO SCH (14:43)
[2024-07-21] MEDS: PREGABALIN 100 MG CAP PO SCH (14:44)
[2024-07-21] MEDS: DAPAGLIFLOZIN PROPANEDIOL 10 MG TABLET PO SCH (14:44)
[2024-07-21] MEDS: allopurinoL 100 MG TAB PO SCH (14:44)
[2024-07-21] MEDS: AZTREONAM 2 GM in SODIUM CHLORIDE 0.9% 100 ML IVPB SCH (14:44)
[2024-07-21] MEDS: APIXABAN 5 MG TAB PO SCH (14:44)
[2024-07-21] MEDS: LOSARTAN 50 MG TAB PO SCH (14:44)
[2024-07-21] MEDS: DULoxetine HCL 60 MG CAPSULE.DR PO SCH (14:56)
[2024-07-21] MEDS: VERAPAMIL SR 120 MG TABLET.ER PO SCH (16:16)
[2024-07-21 17:07] LABS: Glucose,Whole Blood 103 mg/dL (70-110)
[2024-07-21] MEDS: QUEtiapine 25 MG TAB PO SCH (20:12)
[2024-07-21 20:33] LABS: Glucose,Whole Blood 103 mg/dL (70-110)
[2024-07-21] MEDS ORDERED: LEVOFLOXACIN 750MG-D5W PMX 750 MG in DEXTROSE/WATER 1 150ML.BAG IVPB SCH (21:00)
--- NOTE | 2024-07-21 22:18 | P.CONS ---
History of Present Illness - Reason for Consult Consult date: 07/21/24 UTI Requesting physician: Yokasta Haider - Chief Complaint Mental status changes and dysuria x 1 day - History of Present Illness Patient is a 84-year-old female with a past medical history significant for CVA TIA diabetes mellitus hypertension reflux PE rheumatoid arthritis history of recurrent UTI and did have multiple antibiotic allergies patient has been brought into the hospital for evaluation of mental status changes and dysuria symptom has been going on for about a day before the patient has been brought to the hospital patient denies high-grade fever or any chills denies having any chest pain shortness of breath or cough does have some nausea with no vomiting no abdominal pain or diarrhea patient denies having any blood in the urine patient on presentation to the hospital was afebrile and no fever have been called subsequently patient was not tachycardic hypotensive or hypoxic patient did have a white count of 4.5 creatinine 0.72 electrolyte has been normal urine has been positive with large leukocyte esterase more than 182 WBC patient was started on Levaquin because of her multiple antibiotic allergies infectious disease was consulted for further management of antibiotic therapy Review of Systems Positive point and negatives has been mentioned in the HPI, complete review of systems was performed and all other systems are negative Past Medical History Past Medical History: Atrial Fibrillation, CVA/TIA, Diabetes Mellitus, Fibromyalgia, GERD/Reflux, Hypertension, Pneumonia, Pulmonary Embolus (PE), Rheumatoid Arthritis (RA) Additional Past Medical History / Comment(s): recurrent UTIs, cataracts, recent TIA, hx. of PE. History of Any Multi-Drug Resistant Organisms: None Reported Past Surgical History: Back Surgery, Hysterectomy, Joint Replacement, Orthopedic Surgery Additional Past Surgical History / Comment(s): 5 back surgery since 2014, total hysterectomy,R knee replacement Past Anesthesia/Blood Transfusion Reactions: No Reported Reaction Past Psychological History: No Psychological Hx Reported Smoking Status: Never smoker Past Alcohol Use History: Rare Past Drug Use History: None Reported - Past Family History Mother Family Medical History: CVA/TIA, Hyperlipidemia, Hypertension, Myocardial Infarction ([place]) Medications and Allergies Home Medications Medication Instructions Recorded Confirmed Type allopurinoL [Zyloprim] 100 mg PO DAILY 09/21/20 07/21/24 History Cholecalciferol [Vitamin D3 (25 25 mcg PO DAILY 11/04/22 07/21/24 History Mcg = 1000 Iu)] Losartan Potassium [Cozaar] 100 mg PO DAILY 11/04/22 07/21/24 History Vitamin B Complex 1 cap PO DAILY 11/04/22 07/21/24 History Apixaban [Eliquis] 5 mg PO BID #60 tab 11/13/22 07/21/24 Rx DULoxetine HCL [Cymbalta] 60 mg PO DAILY 01/03/23 07/21/24 History Multivit-Min/Iron/Folic/Lutein 1 tab PO DAILY 01/03/23 07/21/24 History [Centrum Silver Women Tablet] Dapagliflozin Propanediol [Farxiga] 10 mg PO DAILY 07/17/23 07/21/24 History Ezetimibe [Zetia] 10 mg PO DAILY 07/17/23 07/21/24 History Furosemide [Lasix] 20 mg PO DAILY PRN 07/17/23 07/21/24 History Acetaminophen Tab [Tylenol] 650 mg PO Q6H PRN 09/12/23 07/21/24 History Azo D-Mannose 500mg 2,000 mg PO DAILY 09/12/23 07/21/24 History L.acidoph,Paracasei, B.lactis 1 cap PO DAILY 09/12/23 07/21/24 History [Probiotic] Melatonin 10 mg PO HS PRN 09/12/23 07/21/24 History Potassium Chloride [Klor-Con M10] 10 meq PO DAILY PRN 09/12/23 07/21/24 History Pregabalin [Lyrica] 200 mg PO BID 09/12/23 07/21/24 History Ubidecarenone [Coenzyme Q10] 200 mg PO DAILY 09/12/23 07/21/24 History hydroCHLOROthiazide [Hydrodiuril] 25 mg PO DAILY 09/12/23 07/21/24 History Cyclobenzaprine [Flexeril] 10 mg PO TID PRN 30 Days #90 tab 06/07/24 07/21/24 Rx DULoxetine HCL [Cymbalta] 30 mg PO HS 06/22/24 07/21/24 History HYDROcodone/APAP 7.5-325MG [[place] 1 tab PO QID PRN 07/21/24 07/21/24 History 7.5-325] Semaglutide [Ozempic] 1 mg SQ Q7D 07/21/24 07/21/24 History Verapamil HCl [Calan] 120 mg PO DAILY 07/21/24 07/21/24 History Allergies Allergy/AdvReac Type Severity Reaction Status Date / Time cephalexin [From Keflex] Allergy Rash/Hives Verified 07/21/24 11:07 clindamycin Allergy Rash/Hives Verified 07/21/24 11:07 Penicillins Allergy Unknown Verified 07/21/24 11:07 oxybutynin [From Ditropan] AdvReac Hallucinati Verified 07/21/24 11:07 ons Physical Exam Vitals: Vital Signs Temp Pulse Pulse Pulse Resp BP BP 07/21/24 07:07 98.4 F 92 20 148/82 07/21/24 03:10 98.1 F 114 H 22 135/78 07/21/24 02:59 114 H 22 07/21/24 02:33 92 16 146/83 07/21/24 01:15 94 16 154/94 07/20/24 22:20 100 19 166/121 07/20/24 16:26 98.5 F 98 22 161/93 Pulse Ox 07/21/24 07:07 97 07/21/24 03:10 92 L 07/21/24 02:59 07/21/24 02:33 96 07/21/24 01:15 94 L 07/20/24 22:20 98 07/20/24 16:26 97 Intake and Output 07/20/24 07/21/24 07/21/24 22:59 06:59 14:59 Output Total 50 Balance -50 Output: Urine 50 Other: Voiding Method External Catheter External Catheter Incontinent External Catheter # Voids 1 Weight 84.822 kg GENERAL DESCRIPTION: Elderly female lying in bed, no distress. No tachypnea or accessory muscle of respiration use. HEENT: Shows Pallor , no scleral icterus. Oral mucous membrane is dry. No pharyngeal erythema or thrush NECK: Trachea central, no thyromegaly. LUNGS: Unlabored breathing. Clear to auscultation anteriorly. No wheeze or crackle. HEART: S1, S2, regular rate and rhythm. No loud murmur ABDOMEN: Soft, no tenderness , guarding or rigidity, no organomegaly EXTREMITIES: No edema of feet. SKIN: No rash, no masses palpable. NEUROLOGICAL: The patient is awake, alert, mood and affect normal. Results CBC & Chem 7: 07/20/24 17:34 07/20/24 17:34 Labs: Abnormal Lab Results - Last 24 Hours (Table) 07/20/24 07/20/24 07/20/24 Range/Units 17:34 17:34 20:30 RDW 16.2 H (11.5-15.5) % Lymphocytes # 0.5 L (1.0-4.8) k/uL Glucose 128 H (74-99) mg/dL POC Glucose (mg/dL) (70-110) mg/dL AST 43 H (14-36) U/L Urine Appearance Cloudy H (Clear) Urine Protein Trace H (Negative) Urine Glucose (UA) 4+ H (Negative) Urine Ketones 2+ H (Negative) Urine Blood Large H (Negative) Urine Nitrite Positive H (Negative) Ur Leukocyte Esterase Large H (Negative) Urine RBC >182 H (0-5) /hpf Urine WBC 89 H (0-5) /hpf Urine Bacteria Moderate H (None) /hpf Urine Mucus Rare H (None) /hpf 07/21/24 07/21/24 Range/Units 03:31 07:05 RDW (11.5-15.5) % Lymphocytes # (1.0-4.8) k/uL Glucose (74-99) mg/dL POC Glucose (mg/dL) 123 H 140 H (70-110) mg/dL AST (14-36) U/L Urine Appearance (Clear) Urine Protein (Negative) Urine Glucose (UA) (Negative) Urine Ketones (Negative) Urine Blood (Negative) Urine Nitrite (Negative) Ur Leukocyte Esterase (Negative) Urine RBC (0-5) /hpf Urine WBC (0-5) /hpf Urine Bacteria (None) /hpf Urine Mucus (None) /hpf Assessment and Plan (1) UTI (urinary tract infection) Current Visit: Yes Status: Acute Code(s): N39.0 - URINARY TRACT INFECTION, SITE NOT SPECIFIED SNOMED Code(s): 76602001 (2) Allergy to multiple antibiotics Current Visit: No Status: Acute Code(s): Z88.1 - ALLERGY STATUS TO OTHER ANTIBIOTIC AGENTS SNOMED Code(s): 520588774 Plan: 1patient presented to hospital mental status changes and the patient also have dysuria with significantly positive UA likely concerning for a symptomatic UTI and likely from enteric gram-negative pathogen with a last urine culture did show E. coli that was resistant to Levaquin 2-patient with multiple antibiotic ALLERGIES that would limit the number of antibiotic safe to use 3-discontinue Levaquin 4-we will start the patient on Azactam while waiting for the culture to finalize We will follow on clinical condition and cultures to further adjust medication if needed Thank you for this consultation we will follow the patient along with you Dictation was produced using [employer] dictation software. please excuse any g rammatical, word or spelling errors.
[2024-07-22 07:20] LABS: ALT 18 U/L (4-34); AST 32 U/L (14-36); African American GFR (CKD) 81 (>60 ml/min/1.73 sqM); Albumin 3.2 g/dL (3.5-5.0); Albumin/Globulin Ratio 1.5; Alkaline Phosphatase 47 U/L (38-126); Anion Gap 10 mmol/L; Blood Urea Nitrogen 15 mg/dL (7-17); Calcium 8.7 mg/dL (8.4-10.2); Carbon Dioxide 23 mmol/L (22-30); Chloride 108 mmol/L (98-107); Globulin 2.2 g/dL; Glucose 114 mg/dL (74-99); Non-African American GFR(CKD) 71 (>60 ml/min/1.73 sqM); Potassium 3.9 mmol/L (3.5-5.1); Sodium 141 mmol/L (137-145); Total Bilirubin 0.6 mg/dL (0.2-1.3); Total Protein 5.4 g/dL (6.3-8.2)
[2024-07-22 07:42] LABS: Glucose,Whole Blood 104 mg/dL (70-110)
[2024-07-22 08:37] LABS: Basophils # (A) 0.02 X 10*3/uL (0.00-0.10); Basophils % (A) 0.4 %; Eosinophils # (A) 0.45 X 10*3/uL (0.04-0.35); Eosinophils % (A) 8.3 %; HCT 36.7 % (37.2-46.3); HGB 11.6 g/dL (12.0-15.0); Lymphocytes # (A) 0.44 X 10*3/uL (0.90-5.00); Lymphocytes % (A) 8.1 %; MCH 27.9 pg (27.0-32.0); MCHC 31.6 g/dL (32.0-37.0); MCV 88.2 FL (80.0-97.0); Mean Platelet Volume 11.2 FL (9.5-12.2); Monocytes # (A) 1.14 X 10*3/uL (0.20-1.00); NRBC Per 100 WBC 0 X 10*3/uL (0.00-0.01); Neutrophils # (A) 3.36 X 10*3/uL (1.80-7.70); Neutrophils % (A) 61.6 %; Platelet Count 152 X 10*3/uL (140-440); RBC 4.16 X 10*6/uL (4.10-5.20); RDW 16.7 % (11.5-14.5); WBC 5.44 X 10*3/uL (4.50-10.00)
[2024-07-22] MEDS: LACTOBACILLUS ACIDOPHILUS/PECT 1 EACH CAPSULE PO SCH (08:50)
[2024-07-22] MEDS: CHOLECALCIFEROL 25 MCG (1000 IU) TABLET PO SCH (08:50)
[2024-07-22] MEDS: hydroCHLOROthiazide 25 MG TAB PO SCH (08:51)
[2024-07-22] MEDS: MULTIVITAMINS, THERA 1 EACH TAB PO SCH (08:51)
[2024-07-22] MEDS: FOLIC ACID-VIT B COMPLEX-VIT C 1 CAP PO SCH (08:51)
[2024-07-22 12:05] LABS: Glucose,Whole Blood 105 mg/dL (70-110)
--- NOTE | 2024-07-22 12:28 | P.PN ---
Subjective Progress Note Date: 07/22/24 Principal diagnosis: Reason for follow-up is gram-negative urinary tract infection with multiple antibiotic allergies Patient is a 84-year-old female with a past medical history significant for CVA TIA diabetes mellitus hypertension reflux PE rheumatoid arthritis history of recurrent UTI and did have multiple antibiotic allergies patient has been brought into the hospital for evaluation of mental status changes and dysuria, patient be diagnosed with a symptomatic UTI prompting this consultation. On today's evaluation that is 07/22/2024,the patient remains to be afebrile, patient is on 2 L nasal cannula supplemental oxygen and denies any shortness of breath no chest pain or cough.Patient denies having any nausea or vomiting, no abdominal pain and no diarrhea has been reported. Patient white count is 5.44, creatinine 0.79 urine is growing gram-negative blood cultures pending Objective - Vital Signs Vital signs: Vital Signs Temp 98.0 F 07/22/24 11:42 Pulse 88 07/22/24 11:42 Resp 16 07/22/24 11:42 BP 113/68 07/22/24 11:42 Pulse Ox 95 07/22/24 11:42 FiO2 Intake & Output 07/21/24 07/22/24 07/22/24 18:59 06:59 18:59 Intake Total 220 Output Total 296 Balance -76 Intake: Oral 220 Output: Post Void Residual 296 Other: Voiding Method Incontinent Incontinent External Catheter External Catheter # Voids 1 3 # Bowel Movements 1 - Exam Elderly female up in the chair in no distress No tachypnea or accessory muscle respiration use Unlabored breathing Patient is awake alert oriented mood and affect is normal - Labs CBC & Chem 7: 07/22/24 05:20 07/22/24 05:20 Labs: Abnormal Lab Results - Last 24 Hours (Table) 07/22/24 07/22/24 Range/Units 05:20 05:20 Hgb 11.6 L (12.0-15.0) g/dL Hct 36.7 L (37.2-46.3) % MCHC 31.6 L (32.0-37.0) g/dL RDW 16.7 H (11.5-14.5) % Lymphocytes # 0.44 L (0.90-5.00) X 10*3/uL Monocytes # 1.14 H (0.20-1.00) X 10*3/uL Eosinophils # 0.45 H (0.04-0.35) X 10*3/uL Chloride 108 H (98-107) mmol/L Glucose 114 H (74-99) mg/dL Total Protein 5.4 L (6.3-8.2) g/dL Albumin 3.2 L (3.5-5.0) g/dL Microbiology - Last 24 Hours (Table) 07/20/24 21:55 Blood Culture - Preliminary Blood 07/20/24 20:30 Urine Culture - Preliminary Urine,Voided Gram Neg Bacilli Assessment and Plan (1) UTI (urinary tract infection) Current Visit: Yes Status: Acute Code(s): N39.0 - URINARY TRACT INFECTION, SITE NOT SPECIFIED SNOMED Code(s): 91171439 (2) Allergy to multiple antibiotics Current Visit: No Status: Acute Code(s): Z88.1 - ALLERGY STATUS TO OTHER ANTIBIOTIC AGENTS SNOMED Code(s): 914037598 Plan: 1patient presented to hospital mental status changes and the patient also have dysuria with significantly positive UA likely concerning for a symptomatic UTI and likely from enteric gram-negative pathogen with a last urine culture did show E. coli that was resistant to Levaquin 2-patient with multiple antibiotic ALLERGIES that would limit the number of antibiotic safe to use 3-patient urine is currently growing gram-negative blood cultures pending patient will be treated with Azactam while waiting for the culture to finalize Dictation was produced using [employer] dictation software. please excuse any grammatical, word or spelling errors. Time with Patient: Less than 30
[2024-07-22 17:05] LABS: Glucose,Whole Blood 147 mg/dL (70-110)
--- NOTE | 2024-07-22 17:55 | P.PN ---
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 Patient was brought into the emergency department at [facility] yesterday with mental status changes while she was living at her assisted living facility, patient became quite confused and her daughter was suspicious for urinary tract infection, she was seen and evaluated in the emergency department, she did not have any leukocytosis, however her urine was quite positive, she was admitted to the hospital for acute urinary tract infection with SIRS along with metabolic encephalopathy, she was started initially on IV antibiotic Levaquin x 1, and thus was discontinued by infectious ease in the doctor and she was started on Azactam 2 g piggyback every 8 hours, she was admitted to hospital blood cultures, urine cultures were obtained, patient was placed on IV fluid resuscitation in the form of normal saline 75 cc an hour because of metabolic encephalopathy as well as because sepsis, patient also was confused quite a bit yesterday, she did receive a dose of Seroquel 25 mg at bedtime. 07/22: Patient is sitting up in bed in no apparent distress, she was placed on 2 L nasal cannula because her oxygenation dropped to 87%, likely due to atelectasis, and not taking enough deep breath, she is currently on room air at 95%, patient did have a bowel movement, she denies any chest pain, or shortness of breath, she has no abdominal pain, nausea vomiting or diarrhea, she continues to tolerate her treatment very well, she is more awake and alert today, she has no other issues, her encephalopathy has gotten much better today. She has been tolerating Azactam 2 g IV piggyback every 8 hours so far. Due to her multiple allergies. REVIEW OF SYSTEMS Constitutional: No fever, no chills, no night sweats. No weight change. positive for weakness, fatigue or lethargy. No daytime sleepiness. HEENT: No headache. No blurred vision or double vision, no loss of vision. Chronic loss of Hearing, no ringing in the ears, no dizziness. No nasal drainage or congestion. No epistaxis. No sore throat. Lungs: No shortness of breath, cough, no sputum production. No wheezing. Cardiovascular: No chest pain, no lower extremity edema. No palpitations. No paroxysmal nocturnal dyspnea. No orthopnea. No lightheadedness or dizziness. No syncopal episodes. Abdominal: No abdominal pain. No nausea, vomiting. No diarrhea. No constipation. No bloody or tarry stools. No loss of appetite. Genitourinary: positive for dysuria, positive for frequency, urgency. No uri nary retention. Musculoskeletal: No myalgias. Noted muscle weakness, noted gait dysfunction, fall at home. No back pain. No neck pain. Right knee discomfort Integumentary: Right knee wounds. No rash or pruritus. No unusual bruising. No change in hair or nails. Neurologic: Noted aphasia. No facial droop. Noted change in mentation. No head injury. No headache. No paralysis. No paresthesia. Psychiatric: No depression. No anxiety. No mood swings.positive for mental status changes Endocrine: No abnormal blood sugars. No weight change. No excessive sweating or thirst. No cold intolerance. PHYSICAL EXAMINATION Gen: This is an 84-year-old obese female appears confused getting better today in the morning. HEENT: Head is atraumatic, normocephalic. Pupils equal, round. Sclerae is anicteric. NECK: Supple. No JVD. No lymphadenopathy. No thyromegaly. LUNGS: Clear to auscultation. No wheezes or rhonchi. No intercostal retractions. HEART: First heart sound is depressed, second heart sound is normal, 2/6 systolic ejection murmur at the left sternal border. ABDOMEN: Soft, mild tenderness to the epigastric area, no rebound or guarding positive bowel sounds EXTREMITIES: +1 pedal edema. No calf tenderness, DP+2 bilaterally. NEUROLOGICAL: Patient is awake, alert and oriented to person and place, CN II- XII are grossly intact muscle power 4/5 in bilateral upper and lower extremities. ASSESSMENT AND PLAN 1. Metabolic encephalopathy likely related to urinary tract infection with source. Discontinue IV fluid, continue Azactam 2 g IV piggyback every 8 hours, infectious diseases following. 2. Paroxysmal Atrial fibrillation. Continue Eliquis 5 mg orally twice every day. Continue verapamil 120 mg daily. 3. Hypertension and hypertensive cardiovascular disease. Continue patient on hydrochlorothiazide 25 mg daily, losartan 100 mg daily, and verapamil 120 mg daily. Monitor the patient blood pressure very closely. 5. Hyperlipidemia. we will continue Zetia 10 mg po daily patient is not able to tolerate statin at this point in time. She can be offered Repatha as an outpatient. 6. Diabetes mellitus type 2. Continue patient on add NovoLog scale before meals and at bedtime, we will continue with Farxiga 10 mg po daily we will continue with Ozempic 0.5 mg subcutaneously every week., 7. Diabetic polyneuropathy. Continue Duloxetin 60 mg po daily continue pregabalin 50 mg orally twice every day for 8. 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 Continue pregabalin 200 mg orally twice every day. Continue patient on current pain management as well. 9. Idiopathic gout. Continue allopurinol 100 mg daily. 10. Obstructive sleep apnea. Continue CPAP. 11. GI prophylaxis and gastroesophageal reflux disease. Continue Protonix 40 mg po daily 12. DVT prophylaxis. Continue Eliquis 5 mg orally twice every day. 14. Diabetic polyneuropathy. Continue pregabalin 200 mg orally twice every day. 15. Acute hypoxemic respiratory insufficiency likely due to atelectasis chest x-ray on the presentation was negative, discontinue IV fluid at this time, increase the use of incentive spirometer, discontinue oxygen, recheck her oxygenation on room air is 95% at this time. Initially was 87%. 16. We will continue to follow the patient very closely. 17. Physical therapy evaluation 18. 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 Objective - Vital Signs Vital signs: Vital Signs Temp 98.0 F 07/22/24 11:42 Pulse 88 07/22/24 11:42 Resp 16 07/22/24 11:42 BP 113/68 07/22/24 11:42 Pulse Ox 95 07/22/24 11:42 FiO2 Intake & Output 07/21/24 07/22/24 07/22/24 18:59 06:59 18:59 Intake Total 220 Output Total 296 Balance -76 Intake: Oral 220 Output: Post Void Residual 296 Other: Voiding Method Incontinent Incontinent External Catheter External Catheter # Voids 1 3 # Bowel Movements 1 - Labs CBC & Chem 7: 07/22/24 05:20 07/22/24 05:20 Labs: Abnormal Lab Results - Last 24 Hours (Table) 07/22/24 07/22/24 07/22/24 Range/Units 05:20 05:20 17:02 Hgb 11.6 L (12.0-15.0) g/dL Hct 36.7 L (37.2-46.3) % MCHC 31.6 L (32.0-37.0) g/dL RDW 16.7 H (11.5-14.5) % Lymphocytes # 0.44 L (0.90-5.00) X 10*3/uL Monocytes # 1.14 H (0.20-1.00) X 10*3/uL Eosinophils # 0.45 H (0.04-0.35) X 10*3/uL Chloride 108 H (98-107) mmol/L Glucose 114 H (74-99) mg/dL POC Glucose (mg/dL) 147 H (70-110) mg/dL Total Protein 5.4 L (6.3-8.2) g/dL Albumin 3.2 L (3.5-5.0) g/dL Microbiology - Last 24 Hours (Table) 07/20/24 21:55 Blood Culture - Preliminary Blood 07/20/24 20:30 Urine Culture - Preliminary Urine,Voided Gram Neg Bacilli
[2024-07-22 20:39] LABS: Glucose,Whole Blood 154 mg/dL (70-110)
[2024-07-22] MEDS: ACETAMINOPHEN TAB 325 MG TAB PO PRN (23:41)
[2024-07-23] MEDS ORDERED: ZINC OXIDE PASTE (Z-GUARD) 1 APPLIC TOPICAL PRN (00:26)
[2024-07-23 07:33] LABS: Glucose,Whole Blood 124 mg/dL (70-110)
[2024-07-23 08:37] LABS: Basophils # (A) 0.03 X 10*3/uL (0.00-0.10); Basophils % (A) 0.6 %; Eosinophils # (A) 0.45 X 10*3/uL (0.04-0.35); Eosinophils % (A) 9.4 %; HGB 11.1 g/dL (12.0-15.0); Lymphocytes # (A) 0.65 X 10*3/uL (0.90-5.00); Lymphocytes % (A) 13.5 %; MCH 26.6 pg (27.0-32.0); MCV 88.5 FL (80.0-97.0); Monocytes # (A) 1.05 X 10*3/uL (0.20-1.00); Monocytes % (A) 21.9 %; NRBC Per 100 WBC 0 X 10*3/uL (0.00-0.01); Neutrophils # (A) 2.61 X 10*3/uL (1.80-7.70); Neutrophils % (A) 54.4 %; Platelet Count 169 X 10*3/uL (140-440); RBC 4.18 X 10*6/uL (4.10-5.20); RDW 16.5 % (11.5-14.5)
[2024-07-23] MEDS: ERTAPENEM 1 GM in SODIUM CHLORIDE 0.9% 50 ML IVPB SCH (08:55)
[2024-07-23] MEDS: FUROSEMIDE 40 MG TAB PO SCH (08:59)
[2024-07-23 10:57] LABS: ALT 14 U/L (8-44); AST 19 U/L (13-35); Albumin 3.3 g/dL (3.8-4.9); Albumin/Globulin Ratio 1.83 Ratio (1.60-3.17); Alkaline Phosphatase 49 U/L (41-126); BUN/Creat Ratio 18.78 Ratio (12.00-20.00); Blood Urea Nitrogen 16.9 mg/dL (9.0-27.0); Calcium 8.4 mg/dL (8.7-10.3); Carbon Dioxide 22.4 mmol/L (21.6-31.8); Chloride 105 mmol/L (96-109); Globulin 1.8 g/dL (1.6-3.3); Glucose 126 mg/dL (70-110); Potassium 3.6 mmol/L (3.5-5.5); Sodium 139 mmol/L (135-145); Total Bilirubin 0.2 mg/dL (0.3-1.2); Total Protein 5.1 g/dL (6.2-8.2)
[2024-07-23 12:38] LABS: Glucose,Whole Blood 160 mg/dL (70-110)
--- NOTE | 2024-07-23 14:47 | P.PN ---
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 Patient was brought into the emergency department at [facility] yesterday with mental status changes while she was living at her assisted living facility, patient became quite confused and her daughter was suspicious for urinary tract infection, she was seen and evaluated in the emergency department, she did not have any leukocytosis, however her urine was quite positive, she was admitted to the hospital for acute urinary tract infection with SIRS along with metabolic encephalopathy, she was started initially on IV antibiotic Levaquin x 1, and thus was discontinued by infectious ease in the doctor and she was started on Azactam 2 g piggyback every 8 hours, she was admitted to hospital blood cultures, urine cultures were obtained, patient was placed on IV fluid resuscitation in the form of normal saline 75 cc an hour because of metabolic encephalopathy as well as because sepsis, patient also was confused quite a bit yesterday, she did receive a dose of Seroquel 25 mg at bedtime. 07/22: Patient is sitting up in bed in no apparent distress, she was placed on 2 L nasal cannula because her oxygenation dropped to 87%, likely due to atelectasis, and not taking enough deep breath, she is currently on room air at 95%, patient did have a bowel movement, she denies any chest pain, or shortness of breath, she has no abdominal pain, nausea vomiting or diarrhea, she continues to tolerate her treatment very well, she is more awake and alert today, she has no other issues, her encephalopathy has gotten much better today. She has been tolerating Azactam 2 g IV piggyback every 8 hours so far. Due to her multiple allergies. 07/23: Patient sitting up in bed in no apparent distress, she denies any chest pain, shortness of breath, she has no abdominal pain, she did have a bowel movement yesterday, she has no bleeding in her stool as much, repeated CBC still pending the time of dictation, she has no other symptoms, continue with IV antibiotic in the form of Azactam 2 g piggyback every 8 hours, monitor the patient cultures very closely, keep the patient in the hospital until the cultures are back. REVIEW OF SYSTEMS Constitutional: No fever, no chills, no night sweats. No weight change. positive for weakness, fatigue or lethargy. No daytime sleepiness. HEENT: No headache. No blurred vision or double vision, no loss of vision. Chronic loss of Hearing, no ringing in the ears, no dizziness. No nasal drainage or congestion. No epistaxis. No sore throat. Lungs: No shortness of breath, cough, no sputum production. No wheezing. Cardiovascular: No chest pain, no lower extremity edema. No palpitations. No paroxysmal nocturnal dyspnea. No orthopnea. No lightheadedness or dizziness. No syncopal episodes. Abdominal: No abdominal pain. No nausea, vomiting. No diarrhea. No constipation. No bloody or tarry stools. No loss of appetite. Genitourinary: positive for dysuria, positive for frequency, urgency. No urinary retention. Musculoskeletal: No myalgias. Noted muscle weakness, noted gait dysfunction, fall at home. No back pain. No neck pain. Right knee discomfort Integumentary: Right knee wounds. No rash or pruritus. No unusual bruising. No change in hair or nails. Neurologic: Noted aphasia. No facial droop. Noted change in mentation. No head injury. No headache. No paralysis. No paresthesia. Psychiatric: No depression. No anxiety. No mood swings.positive for mental status changes Endocrine: No abnormal blood sugars. No weight change. No excessive sweating or thirst. No cold intolerance. PHYSICAL EXAMINATION Gen: This is an 84-year-old obese female appears confused getting better today in the morning. HEENT: Head is atraumatic, normocephalic. Pupils equal, round. Sclerae is anicteric. NECK: Supple. No JVD. No lymphadenopathy. No thyromegaly. LUNGS: Clear to auscultation. No wheezes or rhonchi. No intercostal retractions. HEART: First heart sound is depressed, second heart sound is normal, 2/6 systolic ejection murmur at the left sternal border. ABDOMEN: Soft, mild tenderness to the epigastric area, no rebound or guarding positive bowel sounds EXTREMITIES: +1 pedal edema. No calf tenderness, DP+2 bilaterally. NEUROLOGICAL: Patient is awake, alert and oriented to person and place, CN II- XII are grossly intact muscle power 4/5 in bilateral upper and lower extremities. ASSESSMENT AND PLAN 1. Metabolic encephalopathy likely related to urinary tract infection with source. Discontinue IV fluid, continue Azactam 2 g IV piggyback every 8 hours, infectious diseases following. 2. Paroxysmal Atrial fibrillation. Continue Eliquis 5 mg orally twice every day. Continue verapamil 120 mg daily. 3. Hypertension and hypertensive cardiovascular disease. Continue patient on hydrochlorothiazide 25 mg daily, losartan 100 mg daily, and verapamil 120 mg daily. Monitor the patient blood pressure very closely. 5. Hyperlipidemia. we will continue Zetia 10 mg po daily patient is not able to tolerate statin at this point in time. She can be offered Repatha as an outpa tient. 6. Diabetes mellitus type 2. Continue patient on add NovoLog scale before meals and at bedtime, we will continue with Farxiga 10 mg po daily we will continue with Ozempic 0.5 mg subcutaneously every week., 7. Diabetic polyneuropathy. Continue Duloxetin 60 mg po daily continue pregabalin 50 mg orally twice every day for 8. 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 Continue pregabalin 200 mg orally twice every day. Continue patient on current pain management as well. 9. Idiopathic gout. Continue allopurinol 100 mg daily. 10. Obstructive sleep apnea. Continue CPAP. 11. GI prophylaxis and gastroesophageal reflux disease. Continue Protonix 40 mg po daily 12. DVT prophylaxis. Continue Eliquis 5 mg orally twice every day. 14. Diabetic polyneuropathy. Continue pregabalin 200 mg orally twice every day. 15. Acute hypoxemic respiratory insufficiency likely due to atelectasis chest x-ray on the presentation was negative, discontinue IV fluid at this time, increase the use of incentive spirometer, discontinue oxygen, recheck her oxygenation on room air is 95% at this time. Initially was 87%. 16. Mild rectal bleeding likely related to hemorrhoidal bleed, repeat the patient CBC again in the next 24 hours. CBC from today still pending at the time of dictation. 17. Acute drop in hemoglobin due to hemoconcentration and minimal rectal bleeding due to hemorrhoidal bleed. Monitor the patient CBC, discontinue IV fluid, follow-up with the patient very closely. 18. 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 19. Physical therapy evaluation. Objective - Vital Signs Vital signs: Vital Signs Temp 98.4 F 07/23/24 13:14 Pulse 83 07/23/24 13:14 Resp 16 07/23/24 13:14 BP 101/64 07/23/24 13:14 Pulse Ox 96 07/23/24 13:14 FiO2 Intake & Output 07/22/24 07/23/24 07/23/24 18:59 06:59 18:59 Intake Total 240 Balance 240 Intake: Oral 240 Other: Voiding Method Incontinent Diaper External Catheter Incontinent # Voids 0 3 # Bowel Movements 1 - Labs CBC & Chem 7: 07/23/24 06:04 07/23/24 06:04 Labs: Abnormal Lab Results - Last 24 Hours (Table) 07/22/24 07/22/24 07/23/24 Range/Units 17:02 20:35 06:04 Hgb 11.1 L (12.0-15.0) g/dL Hct 37.0 L (37.2-46.3) % MCH 26.6 L (27.0-32.0) pg MCHC 30.0 L (32.0-37.0) g/dL RDW 16.5 H (11.5-14.5) % Lymphocytes # 0.65 L (0.90-5.00) X 10*3/uL Monocytes # 1.05 H (0.20-1.00) X 10*3/uL Eosinophils # 0.45 H (0.04-0.35) X 10*3/uL Glucose (70-110) mg/dL POC Glucose (mg/dL) 147 H 154 H (70-110) mg/dL Calcium (8.7-10.3) mg/dL Total Bilirubin (0.3-1.2) mg/dL Total Protein (6.2-8.2) g/dL Albumin (3.8-4.9) g/dL 07/23/24 07/23/24 07/23/24 Range/Units 06:04 07:26 12:32 Hgb (12.0-15.0) g/dL Hct (37.2-46.3) % MCH (27.0-32.0) pg MCHC (32.0-37.0) g/dL RDW (11.5-14.5) % Lymphocytes # (0.90-5.00) X 10*3/uL Monocytes # (0.20-1.00) X 10*3/uL Eosinophils # (0.04-0.35) X 10*3/uL Glucose 126 H (70-110) mg/dL POC Glucose (mg/dL) 124 H 160 H (70-110) mg/dL Calcium 8.4 L (8.7-10.3) mg/dL Total Bilirubin 0.2 L (0.3-1.2) mg/dL Total Protein 5.1 L (6.2-8.2) g/dL Albumin 3.3 L (3.8-4.9) g/dL Microbiology - Last 24 Hours (Table) 07/20/24 21:55 Blood Culture - Preliminary Blood 07/20/24 20:30 Urine Culture - Final Urine,Voided Escherichia coli
--- NOTE | 2024-07-23 15:44 | P.PN ---
Subjective Progress Note Date: 07/23/24 Principal diagnosis: Reason for follow-up is gram-negative urinary tract infection with multiple antibiotic allergies Patient is a 84-year-old female with a past medical history significant for CVA TIA diabetes mellitus hypertension reflux PE rheumatoid arthritis history of recurrent UTI and did have multiple antibiotic allergies patient has been brought into the hospital for evaluation of mental status changes and dysuria, patient be diagnosed with a symptomatic UTI prompting this consultation. On today's evaluation that is 07/23/2024, the patient continues to be afebrile, the patient is on room air and breathing comfortably, the Pt denies having any chest pain or cough, the patient denies having any abdominal pain no vomiting or any diarrhea has been reported by the nursing staff. Patient white count is 4.80, creatinine 0.9 urine has been finalized with the drug-resistant E. coli Objective - Vital Signs Vital signs: Vital Signs Temp 98.4 F 07/23/24 13:14 Pulse 83 07/23/24 13:14 Resp 16 07/23/24 13:14 BP 101/64 07/23/24 13:14 Pulse Ox 96 07/23/24 13:14 FiO2 Intake & Output 07/22/24 07/23/24 07/23/24 18:59 06:59 18:59 Intake Total 240 Balance 240 Intake: Oral 240 Other: Voiding Method Incontinent Diaper Diaper External Catheter Incontinent Incontinent # Voids 0 3 # Bowel Movements 1 - Exam Elderly female up in the chair in no distress No tachypnea or accessory muscle respiration use Unlabored breathing Patient is awake alert oriented mood and affect is normal - Labs CBC & Chem 7: 07/23/24 06:04 07/23/24 06:04 Labs: Abnormal Lab Results - Last 24 Hours (Table) 07/22/24 07/22/24 07/23/24 Range/Units 17:02 20:35 06:04 Hgb 11.1 L (12.0-15.0) g/dL Hct 37.0 L (37.2-46.3) % MCH 26.6 L (27.0-32.0) pg MCHC 30.0 L (32.0-37.0) g/dL RDW 16.5 H (11.5-14.5) % Lymphocytes # 0.65 L (0.90-5.00) X 10*3/uL Monocytes # 1.05 H (0.20-1.00) X 10*3/uL Eosinophils # 0.45 H (0.04-0.35) X 10*3/uL Glucose (70-110) mg/dL POC Glucose (mg/dL) 147 H 154 H (70-110) mg/dL Calcium (8.7-10.3) mg/dL Total Bilirubin (0.3-1.2) mg/dL Total Protein (6.2-8.2) g/dL Albumin (3.8-4.9) g/dL 07/23/24 07/23/24 07/23/24 Range/Units 06:04 07:26 12:32 Hgb (12.0-15.0) g/dL Hct (37.2-46.3) % MCH (27.0-32.0) pg MCHC (32.0-37.0) g/dL RDW (11.5-14.5) % Lymphocytes # (0.90-5.00) X 10*3/uL Monocytes # (0.20-1.00) X 10*3/uL Eosinophils # (0.04-0.35) X 10*3/uL Glucose 126 H (70-110) mg/dL POC Glucose (mg/dL) 124 H 160 H (70-110) mg/dL Calcium 8.4 L (8.7-10.3) mg/dL Total Bilirubin 0.2 L (0.3-1.2) mg/dL Total Protein 5.1 L (6.2-8.2) g/dL Albumin 3.3 L (3.8-4.9) g/dL Microbiology - Last 24 Hours (Table) 07/20/24 21:55 Blood Culture - Preliminary Blood 07/20/24 20:30 Urine Culture - Final Urine,Voided Escherichia coli Assessment and Plan (1) UTI (urinary tract infection) Current Visit: Yes Status: Acute Code(s): N39.0 - URINARY TRACT INFECTION, SITE NOT SPECIFIED SNOMED Code(s): 51260642 (2) Allergy to multiple antibiotics Current Visit: No Status: Acute Code(s): Z88.1 - ALLERGY STATUS TO OTHER ANTIBIOTIC AGENTS SNOMED Code(s): 547661164 Plan: 1patient presented to hospital mental status changes and the patient also have dysuria with significantly positive UA likely concerning for a symptomatic UTI and likely from enteric gram-negative pathogen with a last urine culture did show E. coli that was resistant to Levaquin 2-patient with multiple antibiotic ALLERGIES that would limit the number of antibiotic safe to use 3-patient urine has been finalized with a multidrug-resistant E. coli Azactam has been discontinued patient started on Invanz and will see clinical response Dictation was produced using [employer] dictation software. please excuse any grammatical, word or spelling errors. Time with Patient: Less than 30
[2024-07-23 17:34] LABS: Glucose,Whole Blood 136 mg/dL (70-110)
[2024-07-23 20:40] LABS: Glucose,Whole Blood 217 mg/dL (70-110)
[2024-07-24 07:51] LABS: Glucose,Whole Blood 114 mg/dL (70-110)
--- NOTE | 2024-07-24 08:58 | P.PN ---
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 Patient was brought into the emergency department at [facility] yesterday with mental status changes while she was living at her assisted living facility, patient became quite confused and her daughter was suspicious for urinary tract infection, she was seen and evaluated in the emergency department, she did not have any leukocytosis, however her urine was quite positive, she was admitted to the hospital for acute urinary tract infection with SIRS along with metabolic encephalopathy, she was started initially on IV antibiotic Levaquin x 1, and thus was discontinued by infectious ease in the doctor and she was started on Azactam 2 g piggyback every 8 hours, she was admitted to hospital blood cultures, urine cultures were obtained, patient was placed on IV fluid resuscitation in the form of normal saline 75 cc an hour because of metabolic encephalopathy as well as because sepsis, patient also was confused quite a bit yesterday, she did receive a dose of Seroquel 25 mg at bedtime. 07/22: Patient is sitting up in bed in no apparent distress, she was placed on 2 L nasal cannula because her oxygenation dropped to 87%, likely due to atelectasis, and not taking enough deep breath, she is currently on room air at 95%, patient did have a bowel movement, she denies any chest pain, or shortness of breath, she has no abdominal pain, nausea vomiting or diarrhea, she continues to tolerate her treatment very well, she is more awake and alert today, she has no other issues, her encephalopathy has gotten much better today. She has been tolerating Azactam 2 g IV piggyback every 8 hours so far. Due to her multiple allergies. 07/23: Patient sitting up in bed in no apparent distress, she denies any chest pain, shortness of breath, she has no abdominal pain, she did have a bowel movement yesterday, she has no bleeding in her stool as much, repeated CBC still pending the time of dictation, she has no other symptoms, continue with IV antibiotic in the form of Azactam 2 g piggyback every 8 hours, monitor the patient cultures very closely, keep the patient in the hospital until the cultures are back. 07/24: Patient is sitting up in bed in no apparent distress, she denies any chest pain, shortness of breath, her urine cultures finalized to E. coli that is multidrug-resistant, she was taken off Azactam and started on Invanz 1 g of piggyback every 24 hours, will continue to follow the patient very closely, and will monitor clinical response. REVIEW OF SYSTEMS Constitutional: No fever, no chills, no night sweats. No weight change. positive for weakness, fatigue or lethargy. No daytime sleepiness. HEENT: No headache. No blurred vision or double vision, no loss of vision. Chronic loss of Hearing, no ringing in the ears, no dizziness. No nasal drainage or congestion. No epistaxis. No sore throat. Lungs: No shortness of breath, cough, no sputum production. No wheezing. Cardiovascular: No chest pain, no lower extremity edema. No palpitations. No paroxysmal nocturnal dyspnea. No orthopnea. No lightheadedness or dizziness. No syncopal episodes. Abdominal: No abdominal pain. No nausea, vomiting. No diarrhea. No constipation. No bloody or tarry stools. No loss of appetite. Genitourinary: positive for dysuria, positive for frequency, urgency. No urinary retention. Musculoskeletal: No myalgias. Noted muscle weakness, noted gait dysfunction, fall at home. No back pain. No neck pain. Right knee discomfort Integumentary: Right knee wounds. No rash or pruritus. No unusual bruising. No change in hair or nails. Neurologic: Noted aphasia. No facial droop. Noted change in mentation. No head injury. No headache. No paralysis. No paresthesia. Psychiatric: No depression. No anxiety. No mood swings.positive for mental status changes Endocrine: No abnormal blood sugars. No weight change. No excessive sweating or thirst. No cold intolerance. PHYSICAL EXAMINATION Gen: This is an 84-year-old obese female appears confused getting better today in the morning. HEENT: Head is atraumatic, normocephalic. Pupils equal, round. Sclerae is anicteric. NECK: Supple. No JVD. No lymphadenopathy. No thyromegaly. LUNGS: Clear to auscultation. No wheezes or rhonchi. No intercostal retractions. HEART: First heart sound is depressed, second heart sound is normal, 2/6 systolic ejection murmur at the left sternal border. ABDOMEN: Soft, mild tenderness to the epigastric area, no rebound or guarding positive bowel sounds EXTREMITIES: +1 pedal edema. No calf tenderness, DP+2 bilaterally. NEUROLOGICAL: Patient is awake, alert and oriented to person and place, CN II- XII are grossly intact muscle power 4/5 in bilateral upper and lower extremities. ASSESSMENT AND PLAN 1. Metabolic encephalopathy likely related to urinary tract infection with sepsis. Patient has been switched to Invanz 1 g piggyback every 24 hours 2. Multidrug-resistant E. coli patient was taken off Azactam and started on Invanz 1 g piggyback every 24 hours. 3. Paroxysmal Atrial fibrillation. Continue Eliquis 5 mg orally twice every day. Continue verapamil 120 mg daily. 4. Hypertension and hypertensive cardiovascular disease. Continue patient on hydrochlorothiazide 25 mg daily, losartan 100 mg daily, and verapamil 120 mg daily. Monitor the patient blood pressure very closely. 5. Hyperlipidemia. we will continue Zetia 10 mg po daily patient is not able to tolerate statin at this point in time. She can be offered Repatha as an outpatient. 6. Diabetes mellitus type 2. Continue patient on add NovoLog scale before meals and at bedtime, we will continue with Farxiga 10 mg po daily we will continue with Ozempic 0.5 mg subcutaneously every week., 7. Diabetic polyneuropathy. Continue Duloxetin 60 mg po daily continue pregabalin 50 mg orally twice every day for 8. 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 Continue pregabalin 200 mg orally twice every day. Continue patient on current pain management as well. 9. Idiopathic gout. Continue allopurinol 100 mg daily. 10. Obstructive sleep apnea. Continue CPAP. 11. GI prophylaxis and gastroesophageal reflux disease. Continue Protonix 40 mg po daily 12. DVT prophylaxis. Continue Eliquis 5 mg orally twice every day. 13. Diabetic polyneuropathy. Continue pregabalin 200 mg orally twice every day. 14. Acute hypoxemic respiratory insufficiency likely due to atelectasis chest x-ray on the presentation was negative, discontinue IV fluid at this time, increase the use of incentive spirometer, discontinue oxygen, recheck her oxygenation on room air is 95% at this time. Initially was 87%. 15. Mild rectal bleeding likely related to hemorrhoidal bleed, repeat the patient CBC again in the next 24 hours. CBC from today still pending at the time of dictation. 16. Acute drop in hemoglobin due to hemoconcentration and minimal rectal bleeding due to hemorrhoidal bleed. Monitor the patient CBC, discontinue IV fluid, follow-up with the patient very closely. 17. 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 18. Physical therapy evaluation. Objective - Vital Signs Vital signs: Vital Signs Temp 98.1 F 07/24/24 01:49 Pulse 93 07/24/24 01:49 Resp 16 07/24/24 01:49 BP 98/64 07/24/24 01:49 Pulse Ox 94 L 07/24/24 01:49 FiO2 Intake & Output 07/23/24 07/24/24 07/24/24 18:59 06:59 18:59 Intake Total 1020 540 Balance 1020 540 Intake: Oral 1020 540 Other: Voiding Method Diaper Diaper Incontinent Incontinent # Voids 3 3 - Labs CBC & Chem 7: 07/23/24 06:04 07/23/24 06:04 Labs: Abnormal Lab Results - Last 24 Hours (Table) 07/23/24 07/23/24 07/23/24 Range/Units 06:04 06:04 12:32 Hgb 11.1 L (12.0-15.0) g/dL Hct 37.0 L (37.2-46.3) % MCH 26.6 L (27.0-32.0) pg MCHC 30.0 L (32.0-37.0) g/dL RDW 16.5 H (11.5-14.5) % Lymphocytes # 0.65 L (0.90-5.00) X 10*3/uL Monocytes # 1.05 H (0.20-1.00) X 10*3/uL Eosinophils # 0.45 H (0.04-0.35) X 10*3/uL Glucose 126 H (70-110) mg/dL POC Glucose (mg/dL) 160 H (70-110) mg/dL Calcium 8.4 L (8.7-10.3) mg/dL Total Bilirubin 0.2 L (0.3-1.2) mg/dL Total Protein 5.1 L (6.2-8.2) g/dL Albumin 3.3 L (3.8-4.9) g/dL 07/23/24 07/23/24 07/24/24 Range/Units 17:21 20:35 07:47 Hgb (12.0-15.0) g/dL Hct (37.2-46.3) % MCH (27.0-32.0) pg MCHC (32.0-37.0) g/dL RDW (11.5-14.5) % Lymphocytes # (0.90-5.00) X 10*3/uL Monocytes # (0.20-1.00) X 10*3/uL Eosinophils # (0.04-0.35) X 10*3/uL Glucose (70-110) mg/dL POC Glucose (mg/dL) 136 H 217 H 114 H (70-110) mg/dL Calcium (8.7-10.3) mg/dL Total Bilirubin (0.3-1.2) mg/dL Total Protein (6.2-8.2) g/dL Albumin (3.8-4.9) g/dL Microbiology - Last 24 Hours (Table) 07/20/24 21:55 Blood Culture - Preliminary Blood
[2024-07-24 09:47] LABS: ALT 13 U/L (8-44); AST 22 U/L (13-35); Albumin 3.4 g/dL (3.8-4.9); Albumin/Globulin Ratio 1.62 Ratio (1.60-3.17); Alkaline Phosphatase 49 U/L (41-126); BUN/Creat Ratio 25.78 Ratio (12.00-20.00); Blood Urea Nitrogen 23.2 mg/dL (9.0-27.0); Calcium 8.6 mg/dL (8.7-10.3); Carbon Dioxide 23.1 mmol/L (21.6-31.8); Chloride 105 mmol/L (96-109); Globulin 2.1 g/dL (1.6-3.3); Glucose 118 mg/dL (70-110); Potassium 4.3 mmol/L (3.5-5.5); Sodium 139 mmol/L (135-145); Total Bilirubin <0.2 mg/dL (0.3-1.2); Total Protein 5.5 g/dL (6.2-8.2)
[2024-07-24 11:17] LABS: Basophils # (A) 0.03 X 10*3/uL (0.00-0.10); Basophils % (A) 0.6 %; Eosinophils # (A) 0.44 X 10*3/uL (0.04-0.35); Eosinophils % (A) 8.9 %; HCT 38.1 % (37.2-46.3); HGB 11.4 g/dL (12.0-15.0); Lymphocytes # (A) 0.75 X 10*3/uL (0.90-5.00); Lymphocytes % (A) 15.2 %; MCH 26.6 pg (27.0-32.0); MCHC 29.9 g/dL (32.0-37.0); MCV 88.8 FL (80.0-97.0); Mean Platelet Volume 11.4 FL (9.5-12.2); Monocytes # (A) 0.82 X 10*3/uL (0.20-1.00); Monocytes % (A) 16.6 %; NRBC Per 100 WBC 0 X 10*3/uL (0.00-0.01); Neutrophils % (A) 58.5 %; Platelet Count 206 X 10*3/uL (140-440); RBC 4.29 X 10*6/uL (4.10-5.20); RDW 16.7 % (11.5-14.5); WBC 4.95 X 10*3/uL (4.50-10.00)
[2024-07-24 12:42] LABS: Glucose,Whole Blood 120 mg/dL (70-110)
--- NOTE | 2024-07-24 14:38 | P.PN ---
Subjective Progress Note Date: 07/24/24 Principal diagnosis: Reason for follow-up is gram-negative urinary tract infection with multiple antibiotic allergies Patient is a 84-year-old female with a past medical history significant for CVA TIA diabetes mellitus hypertension reflux PE rheumatoid arthritis history of recurrent UTI and did have multiple antibiotic allergies patient has been brought into the hospital for evaluation of mental status changes and dysuria, patient be diagnosed with a symptomatic UTI prompting this consultation. On today's evaluation that is 07/24/2024, patient did not have any fever and denies any chills, patient is breathing comfortably on room air, patient with no chest pain or cough patient did not have any abdominal pain nausea vomiting or any loose stools patient mention feeling better. Patient white count is 4.95 creatinine 0.9 blood culture have been negative Objective - Vital Signs Vital signs: Vital Signs Temp 97.5 F L 07/24/24 08:00 Pulse 73 07/24/24 08:00 Resp 18 07/24/24 08:00 BP 102/66 07/24/24 08:00 Pulse Ox 95 07/24/24 08:00 FiO2 Intake & Output 07/23/24 07/24/24 07/24/24 18:59 06:59 18:59 Intake Total 1020 540 Balance 1020 540 Intake: Oral 1020 540 Other: Voiding Method Diaper Diaper Bedside Commode Incontinent Incontinent Diaper Incontinent # Voids 3 3 - Exam Elderly female up in the chair in no distress No tachypnea or accessory muscle respiration use Unlabored breathing Patient is awake alert oriented mood and affect is normal - Labs CBC & Chem 7: 07/24/24 05:21 07/24/24 05:28 Labs: Abnormal Lab Results - Last 24 Hours (Table) 07/23/24 07/23/24 07/24/24 Range/Units 17:21 20:35 05:21 Hgb 11.4 L (12.0-15.0) g/dL MCH 26.6 L (27.0-32.0) pg MCHC 29.9 L (32.0-37.0) g/dL RDW 16.7 H (11.5-14.5) % Lymphocytes # 0.75 L (0.90-5.00) X 10*3/uL Eosinophils # 0.44 H (0.04-0.35) X 10*3/uL BUN/Creatinine Ratio (12.00-20.00) Ratio Glucose (70-110) mg/dL POC Glucose (mg/dL) 136 H 217 H (70-110) mg/dL Calcium (8.7-10.3) mg/dL Total Bilirubin (0.3-1.2) mg/dL Total Protein (6.2-8.2) g/dL Albumin (3.8-4.9) g/dL 07/24/24 07/24/24 07/24/24 Range/Units 05:28 07:47 12:35 Hgb (12.0-15.0) g/dL MCH (27.0-32.0) pg MCHC (32.0-37.0) g/dL RDW (11.5-14.5) % Lymphocytes # (0.90-5.00) X 10*3/uL Eosinophils # (0.04-0.35) X 10*3/uL BUN/Creatinine Ratio 25.78 H (12.00-20.00) Ratio Glucose 118 H (70-110) mg/dL POC Glucose (mg/dL) 114 H 120 H (70-110) mg/dL Calcium 8.6 L (8.7-10.3) mg/dL Total Bilirubin <0.2 L (0.3-1.2) mg/dL Total Protein 5.5 L (6.2-8.2) g/dL Albumin 3.4 L (3.8-4.9) g/dL Microbiology - Last 24 Hours (Table) 07/20/24 21:55 Blood Culture - Preliminary Blood Assessment and Plan (1) UTI (urinary tract infection) Current Visit: Yes Status: Acute Code(s): N39.0 - URINARY TRACT INFECTION, SITE NOT SPECIFIED SNOMED Code(s): 12747172 (2) Allergy to multiple antibiotics Current Visit: No Status: Acute Code(s): Z88.1 - ALLERGY STATUS TO OTHER ANTIBIOTIC AGENTS SNOMED Code(s): 902791639 Plan: 1patient presented to hospital mental status changes and the patient also have dysuria with significantly positive UA likely concerning for a symptomatic UTI and likely from enteric gram-negative pathogen with a last urine culture did show E. coli that was resistant to Levaquin 2-patient with multiple antibiotic ALLERGIES that would limit the number of antibiotic safe to use 3-patient urine has been finalized with a multidrug-resistant E. coli for the patient is currently being treated Larissa did have clinical response we will consider midline and outpatient IV Invanz Dictation was produced using [employer] dictation software. please excuse any grammatical, word or spelling errors. Time with Patient: Less than 30
[2024-07-24 17:17] LABS: Glucose,Whole Blood 116 mg/dL (70-110)
[2024-07-24 20:07] LABS: Glucose,Whole Blood 200 mg/dL (70-110)
[2024-07-25 07:43] LABS: Glucose,Whole Blood 113 mg/dL (70-110)
[2024-07-25 10:04] LABS: ALT 12 U/L (8-44); AST 17 U/L (13-35); Albumin 3.6 g/dL (3.8-4.9); Albumin/Globulin Ratio 1.71 Ratio (1.60-3.17); Alkaline Phosphatase 53 U/L (41-126); Carbon Dioxide 26.4 mmol/L (21.6-31.8); Chloride 103 mmol/L (96-109); Globulin 2.1 g/dL (1.6-3.3); Glucose 119 mg/dL (70-110); Potassium 4.1 mmol/L (3.5-5.5); Sodium 140 mmol/L (135-145); Total Bilirubin <0.2 mg/dL (0.3-1.2); Total Protein 5.7 g/dL (6.2-8.2)
--- NOTE | 2024-07-25 10:05 | P.PN ---
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 Patient was brought into the emergency department at [facility] yesterday with mental status changes while she was living at her assisted living facility, patient became quite confused and her daughter was suspicious for urinary tract infection, she was seen and evaluated in the emergency department, she did not have any leukocytosis, however her urine was quite positive, she was admitted to the hospital for acute urinary tract infection with SIRS along with metabolic encephalopathy, she was started initially on IV antibiotic Levaquin x 1, and thus was discontinued by infectious ease in the doctor and she was started on Azactam 2 g piggyback every 8 hours, she was admitted to hospital blood cultures, urine cultures were obtained, patient was placed on IV fluid resuscitation in the form of normal saline 75 cc an hour because of metabolic encephalopathy as well as because sepsis, patient also was confused quite a bit yesterday, she did receive a dose of Seroquel 25 mg at bedtime. 07/22: Patient is sitting up in bed in no apparent distress, she was placed on 2 L nasal cannula because her oxygenation dropped to 87%, likely due to atelectasis, and not taking enough deep breath, she is currently on room air at 95%, patient did have a bowel movement, she denies any chest pain, or shortness of breath, she has no abdominal pain, nausea vomiting or diarrhea, she continues to tolerate her treatment very well, she is more awake and alert today, she has no other issues, her encephalopathy has gotten much better today. She has been tolerating Azactam 2 g IV piggyback every 8 hours so far. Due to her multiple allergies. 07/23: Patient sitting up in bed in no apparent distress, she denies any chest pain, shortness of breath, she has no abdominal pain, she did have a bowel movement yesterday, she has no bleeding in her stool as much, repeated CBC still pending the time of dictation, she has no other symptoms, continue with IV antibiotic in the form of Azactam 2 g piggyback every 8 hours, monitor the patient cultures very closely, keep the patient in the hospital until the cultures are back. 07/24: Patient is sitting up in bed in no apparent distress, she denies any chest pain, shortness of breath, her urine cultures finalized to E. coli that is multidrug-resistant, she was taken off Azactam and started on Invanz 1 g of piggyback every 24 hours, will continue to follow the patient very closely, and will monitor clinical response. 07/25: Patient is sitting up in bed in no apparent distress, she is complaining of pain at the side of her tongue where she had her biopsy of the ulcer of the tongue, she has been under the care of oral surgery, she has been having these issues for the past 6 months, I will start the patient on triamcinolone paste 0.1% to be applied to the side of the tongue twice every day for the next 5 days, continue current treatment plan with Invanz 1 g IV piggyback every 24 hours, due to resistant E. coli, patient will be monitored very closely during her hospital stay, infectious diseases following, patient did have a good bowel movement, she has no other issues at this point in time, we will discuss with infectious disease whether or not the patient she should stay on IV antibiotic or she can be switched to oral antibiotic in view of her multiple drug allergies. REVIEW OF SYSTEMS Constitutional: No fever, no chills, no night sweats. No weight change. positive for weakness, fatigue or lethargy. No daytime sleepiness. HEENT: No headache. No blurred vision or double vision, no loss of vision. Chr onic loss of Hearing, no ringing in the ears, no dizziness. No nasal drainage or congestion. No epistaxis. No sore throat. Lungs: No shortness of breath, cough, no sputum production. No wheezing. Cardiovascular: No chest pain, no lower extremity edema. No palpitations. No paroxysmal nocturnal dyspnea. No orthopnea. No lightheadedness or dizziness. No syncopal episodes. Abdominal: No abdominal pain. No nausea, vomiting. No diarrhea. No constipation. No bloody or tarry stools. No loss of appetite. Genitourinary: positive for dysuria, positive for frequency, urgency. No urinary retention. Musculoskeletal: No myalgias. Noted muscle weakness, noted gait dysfunction, fall at home. No back pain. No neck pain. Right knee discomfort Integumentary: Right knee wounds. No rash or pruritus. No unusual bruising. No change in hair or nails. Neurologic: Noted aphasia. No facial droop. Noted change in mentation. No head injury. No headache. No paralysis. No paresthesia. Psychiatric: No depression. No anxiety. No mood swings.positive for mental status changes Endocrine: No abnormal blood sugars. No weight change. No excessive sweating or thirst. No cold intolerance. PHYSICAL EXAMINATION Gen: This is an 84-year-old obese female appears confused getting better today in the morning. HEENT: Head is atraumatic, normocephalic. Pupils equal, round. Sclerae is an icteric. NECK: Supple. No JVD. No lymphadenopathy. No thyromegaly. LUNGS: Clear to auscultation. No wheezes or rhonchi. No intercostal retractions. HEART: First heart sound is depressed, second heart sound is normal, 2/6 systolic ejection murmur at the left sternal border. ABDOMEN: Soft, mild tenderness to the epigastric area, no rebound or guarding positive bowel sounds EXTREMITIES: +1 pedal edema. No calf tenderness, DP+2 bilaterally. NEUROLOGICAL: Patient is awake, alert and oriented to person and place, CN II- XII are grossly intact muscle power 4/5 in bilateral upper and lower extrem ities. ASSESSMENT AND PLAN 1. Metabolic encephalopathy likely related to urinary tract infection with sepsis. Continue patient on Invanz 1 g piggyback every 24 hours 2. Multidrug-resistant E. coli patient is on Invanz 1 g piggyback every 24 hours. 3. Paroxysmal Atrial fibrillation. Continue Eliquis 5 mg orally twice every day. Continue verapamil 120 mg daily. 4. Hypertension and hypertensive cardiovascular disease. Continue patient on hydrochlorothiazide 25 mg daily, losartan 100 mg daily, and verapamil 120 mg daily. Monitor the patient blood pressure very closely. 5. Hyperlipidemia. we will continue Zetia 10 mg po daily patient is not able to tolerate statin at this point in time. She can be offered Repatha as an outpatient. 6. Diabetes mellitus type 2. Continue patient on add NovoLog scale before meals and at bedtime, we will continue with Farxiga 10 mg po daily we will continue with Ozempic 0.5 mg subcutaneously every week., 7. Diabetic polyneuropathy. Continue Duloxetin 60 mg po daily continue pregabalin 50 mg orally twice every day for 8. 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 Continue pregabalin 200 mg orally twice every day. Continue patient on current pain management as well. 9. Idiopathic gout. Continue allopurinol 100 mg daily. 10. Obstructive sleep apnea. Continue CPAP. 11. GI prophylaxis and gastroesophageal reflux disease. Continue Protonix 40 mg po daily 12. DVT prophylaxis. Continue Eliquis 5 mg orally twice every day. 13. Diabetic polyneuropathy. Continue pregabalin 200 mg orally twice every day. 14. Acute hypoxemic respiratory insufficiency likely due to atelectasis chest x-ray on the presentation was negative, discontinue IV fluid at this time, increase the use of incentive spirometer, discontinue oxygen, recheck her oxygenation on room air is 95% at this time. Initially was 87%. Her oxygen is stable at this time 15. Mild rectal bleeding likely related to hemorrhoidal bleed, repeat the patient CBC again in the next 24 hours. CBC from today still pending at the time of dictation. 16. Acute drop in hemoglobin due to hemoconcentration and minimal rectal bleeding due to hemorrhoidal bleed. Monitor the patient CBC, discontinue IV fluid, follow-up with the patient very closely. 17. Left tongue ulcer status post biopsies start the patient on triamcinolone paste 0.1% to be applied twice a day for 5 days 18. kitchen and counter worker consultation for discharge planning. 19. Physical therapy evaluation. Objective - Vital Signs Vital signs: Vital Signs Temp 97.7 F 07/25/24 07:50 Pulse 76 07/25/24 07:50 Resp 16 07/25/24 07:50 BP 113/63 07/25/24 07:50 Pulse Ox 93 L 07/25/24 07:50 FiO2 Intake & Output 07/24/24 07/25/24 07/25/24 18:59 06:59 18:59 Intake Total 580 Balance 580 Intake: Oral 580 Other: Voiding Method Bedside Commode Bedside Commode Diaper Diaper Incontinent Incontinent # Voids 3 2 # Bowel Movements 1 3 - Labs CBC & Chem 7: 07/24/24 05:21 07/24/24 05:28 Labs: Abnormal Lab Results - Last 24 Hours (Table) 07/24/24 07/24/2407/24/24 Range/Units 05:21 05:28 12:35 Hgb 11.4 L (12.0-15.0) g/dL MCH 26.6 L (27.0-32.0) pg MCHC 29.9 L (32.0-37.0) g/dL RDW 16.7 H (11.5-14.5) % Lymphocytes # 0.75 L (0.90-5.00) X 10*3/uL Eosinophils # 0.44 H (0.04-0.35) X 10*3/uL BUN/Creatinine Ratio 25.78 H (12.00-20.00) Ratio Glucose 118 H (70-110) mg/dL POC Glucose (mg/dL) 120 H (70-110) mg/dL Calcium 8.6 L (8.7-10.3) mg/dL Total Bilirubin <0.2 L (0.3-1.2) mg/dL Total Protein 5.5 L (6.2-8.2) g/dL Albumin 3.4 L (3.8-4.9) g/dL 07/24/24 07/24/24 07/25/24 Range/Units 17:12 20:05 07:40 Hgb (12.0-15.0) g/dL MCH (27.0-32.0) pg MCHC (32.0-37.0) g/dL RDW (11.5-14.5) % Lymphocytes # (0.90-5.00) X 10*3/uL Eosinophils # (0.04-0.35) X 10*3/uL BUN/Creatinine Ratio (12.00-20.00) Ratio Glucose (70-110) mg/dL POC Glucose (mg/dL) 116 H 200 H 113 H (70-110) mg/dL Calcium (8.7-10.3) mg/dL Total Bilirubin (0.3-1.2) mg/dL Total Protein (6.2-8.2) g/dL Albumin (3.8-4.9) g/dL Microbiology - Last 24 Hours (Table) 07/20/24 21:55 Blood Culture - Preliminary Blood
[2024-07-25 12:39] LABS: Glucose,Whole Blood 104 mg/dL (70-110)
[2024-07-25 13:20] LABS: Basophils # (A) 0.03 X 10*3/uL (0.00-0.10); Basophils % (A) 0.6 %; Eosinophils # (A) 0.34 X 10*3/uL (0.04-0.35); Eosinophils % (A) 7.2 %; HCT 38.7 % (37.2-46.3); HGB 11.9 g/dL (12.0-15.0); Lymphocytes # (A) 0.93 X 10*3/uL (0.90-5.00); Lymphocytes % (A) 19.8 %; MCH 27.2 pg (27.0-32.0); MCHC 30.7 g/dL (32.0-37.0); MCV 88.6 FL (80.0-97.0); Mean Platelet Volume 11.9 FL (9.5-12.2); Monocytes # (A) 0.78 X 10*3/uL (0.20-1.00); Monocytes % (A) 16.6 %; NRBC Per 100 WBC 0 X 10*3/uL (0.00-0.01); Neutrophils # (A) 2.61 X 10*3/uL (1.80-7.70); Neutrophils % (A) 55.6 %; Platelet Count 213 X 10*3/uL (140-440); RBC 4.37 X 10*6/uL (4.10-5.20); RDW 16.5 % (11.5-14.5)
--- NOTE | 2024-07-25 15:05 | P.PN ---
Subjective Progress Note Date: 07/25/24 Principal diagnosis: Reason for follow-up is gram-negative urinary tract infection with multiple antibiotic allergies Patient is a 84-year-old female with a past medical history significant for CVA TIA diabetes mellitus hypertension reflux PE rheumatoid arthritis history of recurrent UTI and did have multiple antibiotic allergies patient has been brought into the hospital for evaluation of mental status changes and dysuria, patient be diagnosed with a symptomatic UTI prompting this consultation. On today's evaluation that is 07/25/2024, Patient is afebrile patient is currently on room air and denies having any shortness of breath, the patient denies any chest pain or cough, the patient denies any nausea vomiting did not have any abdominal pain and no diarrhea, mention feeling better Patient white count is 4.70, creatinine 0.8 blood culture has been negative Objective - Vital Signs Vital signs: Vital Signs Temp 98.4 F 07/25/24 13:01 Pulse 82 07/25/24 13:01 Resp 16 07/25/24 13:01 BP 115/71 07/25/24 13:01 Pulse Ox 96 07/25/24 13:01 FiO2 Intake & Output 07/24/24 07/25/24 07/25/24 18:59 06:59 18:59 Intake Total 580 Output Total 1 Balance 580 -1 Intake: Oral 580 Output: Urine 1 Other: Voiding Method Bedside Commode Bedside Commode Toilet Diaper Diaper Bedside Commode Incontinent Incontinent Diaper Incontinent # Voids 3 2 # Bowel Movements 1 3 1 - Exam Elderly female up in the chair in no distress No tachypnea or accessory muscle respiration use Unlabored breathing Patient is awake alert oriented mood and affect is normal - Labs CBC & Chem 7: 07/25/24 02:59 07/25/24 02:59 Labs: Abnormal Lab Results - Last 24 Hours (Table) 07/24/24 07/24/24 07/25/24 Range/Units 17:12 20:05 02:59 Hgb 11.9 L (12.0-15.0) g/dL MCHC 30.7 L (32.0-37.0) g/dL RDW 16.5 H (11.5-14.5) % BUN/Creatinine Ratio (12.00-20.00) Ratio Glucose (70-110) mg/dL POC Glucose (mg/dL) 116 H 200 H (70-110) mg/dL Total Bilirubin (0.3-1.2) mg/dL Total Protein (6.2-8.2) g/dL Albumin (3.8-4.9) g/dL 07/25/24 07/25/24 Range/Units 02:59 07:40 Hgb (12.0-15.0) g/dL MCHC (32.0-37.0) g/dL RDW (11.5-14.5) % BUN/Creatinine Ratio 30.00 H (12.00-20.00) Ratio Glucose 119 H (70-110) mg/dL POC Glucose (mg/dL) 113 H (70-110) mg/dL Total Bilirubin <0.2 L (0.3-1.2) mg/dL Total Protein 5.7 L (6.2-8.2) g/dL Albumin 3.6 L (3.8-4.9) g/dL Assessment and Plan (1) UTI (urinary tract infection) Current Visit: Yes Status: Acute Code(s): N39.0 - URINARY TRACT INFECTION, SITE NOT SPECIFIED SNOMED Code(s): 90932488 (2) Allergy to multiple antibiotics Current Visit: No Status: Acute Code(s): Z88.1 - ALLERGY STATUS TO OTHER ANTIBIOTIC AGENTS SNOMED Code(s): 665304715 Plan: 1patient presented to hospital mental status changes and the patient also have dysuria with significantly positive UA likely concerning for a symptomatic UTI and likely from enteric gram-negative pathogen with a last urine culture did s how E. coli that was resistant to Levaquin 2-patient with multiple antibiotic ALLERGIES that would limit the number of antibiotic safe to use 3-patient urine has been finalized with a multidrug-resistant E. coli for the patient is currently being treated Invanz and mention overall clinical improveme nt will consider midline a 7-day course of Invanz on discharge Dictation was produced using [employer] dictation software. please excuse any grammatical, word or spelling errors. Time with Patient: Less than 30
[2024-07-25 17:27] LABS: Glucose,Whole Blood 124 mg/dL (70-110)
[2024-07-25] MEDS: TRIAMCINOLONE ACET 0.1% ORAL PASTE 5 GM TUBE MUCOUS MEM SCH (18:40)
[2024-07-25 20:06] LABS: Glucose,Whole Blood 175 mg/dL (70-110)
[2024-07-25] MEDS: SODIUM CHLORIDE 0.9% 1,000 ML IV SCH (20:58)
[2024-07-25] MEDS: HYDROcodone/APAP 7.5-325MG 1 EACH TAB PO PRN (21:00)
[2024-07-25] MEDS: MELATONIN 5 MG TABLET PO PRN (21:01)
[2024-07-26 07:07] LABS: Glucose,Whole Blood 104 mg/dL (70-110)
[2024-07-26 08:44] LABS: Basophils # (A) 0.05 X 10*3/uL (0.00-0.10); Basophils % (A) 1.1 %; Eosinophils % (A) 6.7 %; HCT 37.1 % (37.2-46.3); HGB 11.6 g/dL (12.0-15.0); Lymphocytes # (A) 0.94 X 10*3/uL (0.90-5.00); MCH 27.6 pg (27.0-32.0); MCHC 31.3 g/dL (32.0-37.0); MCV 88.3 FL (80.0-97.0); Mean Platelet Volume 10.9 FL (9.5-12.2); Monocytes # (A) 0.67 X 10*3/uL (0.20-1.00); NRBC Per 100 WBC 0 X 10*3/uL (0.00-0.01); Neutrophils # (A) 2.51 X 10*3/uL (1.80-7.70); Platelet Count 218 X 10*3/uL (140-440); RDW 16.1 % (11.5-14.5); WBC 4.48 X 10*3/uL (4.50-10.00)
[2024-07-26 08:57] LABS: ALT 11 U/L (8-44); AST 15 U/L (13-35); Albumin 3.5 g/dL (3.8-4.9); Albumin/Globulin Ratio 1.94 Ratio (1.60-3.17); Alkaline Phosphatase 48 U/L (41-126); Blood Urea Nitrogen 24.4 mg/dL (9.0-27.0); Calcium 8.8 mg/dL (8.7-10.3); Carbon Dioxide 24.7 mmol/L (21.6-31.8); Chloride 103 mmol/L (96-109); Globulin 1.8 g/dL (1.6-3.3); Glucose 125 mg/dL (70-110); Potassium 4.4 mmol/L (3.5-5.5); Sodium 140 mmol/L (135-145); Total Bilirubin <0.2 mg/dL (0.3-1.2); Total Protein 5.3 g/dL (6.2-8.2)
[2024-07-26 12:10] LABS: Glucose,Whole Blood 121 mg/dL (70-110)
--- NOTE | 2024-07-26 13:04 | P.DS ---
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 Patient was brought into the emergency department at [facility] yesterday with mental status changes while she was living at her assisted living facility, patient became quite confused and her daughter was suspicious for urinary tract infection, she was seen and evaluated in the emergency department, she did not have any leukocytosis, however her urine was quite positive, she was admitted to the hospital for acute urinary tract infection with SIRS along with metabolic encephalopathy, she was started initially on IV antibiotic Levaquin x 1, and thus was discontinued by infectious ease in the doctor and she was started on Azactam 2 g piggyback every 8 hours, she was admitted to hospital blood cultures, urine cultures were obtained, patient was placed on IV fluid resuscitation in the form of normal saline 75 cc an hour because of metabolic encephalopathy as well as because sepsis, patient also was confused quite a bit yesterday, she did receive a dose of Seroquel 25 mg at bedtime. 07/22: Patient is sitting up in bed in no apparent distress, she was placed on 2 L nasal cannula because her oxygenation dropped to 87%, likely due to atelectasis, and not taking enough deep breath, she is currently on room air at 95%, patient did have a bowel movement, she denies any chest pain, or shortness of breath, she has no abdominal pain, nausea vomiting or diarrhea, she continues to tolerate her treatment very well, she is more awake and alert today, she has no other issues, her encephalopathy has gotten much better today. She has been tolerating Azactam 2 g IV piggyback every 8 hours so far. Due to her multiple allergies. 07/23: Patient sitting up in bed in no apparent distress, she denies any chest pain, shortness of breath, she has no abdominal pain, she did have a bowel movement yesterday, she has no bleeding in her stool as much, repeated CBC still pending the time of dictation, she has no other symptoms, continue with IV antibiotic in the form of Azactam 2 g piggyback every 8 hours, monitor the patient cultures very closely, keep the patient in the hospital until the cultures are back. 07/24: Patient is sitting up in bed in no apparent distress, she denies any chest pain, shortness of breath, her urine cultures finalized to E. coli that is multidrug-resistant, she was taken off Azactam and started on Invanz 1 g of piggyback every 24 hours, will continue to follow the patient very closely, and will monitor clinical response. 07/25: Patient is sitting up in bed in no apparent distress, she is complaining of pain at the side of her tongue where she had her biopsy of the ulcer of the tongue, she has been under the care of oral surgery, she has been having these issues for the past 6 months, I will start the patient on triamcinolone paste 0.1% to be applied to the side of the tongue twice every day for the next 5 days, continue current treatment plan with Invanz 1 g IV piggyback every 24 hours, due to resistant E. coli, patient will be monitored very closely during her hospital stay, infectious diseases following, patient did have a good bowel movement, she has no other issues at this point in time, we will discuss with infectious disease whether or not the patient she should stay on IV antibiotic or she can be switched to oral antibiotic in view of her multiple drug allergies. 07/26: Patient has no new concerns today. Plan is for her to be discharged to [facility] and continue IV antibiotics. Patient has been followed by infectious disease with recommendations for advance for 7-day course. Patient is scheduled for midline insertion today. Once all arrangements are completed, patient will be discharged to [facility] for subacute rehab. DISCHARGE DIAGNOSES 1. Metabolic encephalopathy likely related to urinary tract infection with sepsis. 2. Multidrug-resistant E. coli. 3. Paroxysmal Atrial fibrillation. 4. Hypertension and hypertensive cardiovascular disease. 5. Hyperlipidemia. 6. Diabetes mellitus type 2. 7. Diabetic polyneuropathy. 8. 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 9. Idiopathic gout. 10. Obstructive sleep apnea with CPAP. 11. Gastroesophageal reflux disease. 12. Diabetic polyneuropathy. 14. Acute hypoxemic respiratory insufficiency likely due to atelectasis. 15. Mild rectal bleeding likely related to hemorrhoidal bleed. 16. Acute drop in hemoglobin due to hemoconcentration and minimal rectal bleeding due to hemorrhoidal bleed. 17. Left tongue ulcer status post biopsies. DISCHARGE PLAN: [facility] for subacute rehab Greater than 35 minutes was utilized and coordinating patient's discharge. Impression and plan of care have been directed as dictated by the signing physician. Yokasta Haider nurse practitioner acting as scribe for signing physician. Plan - Discharge Summary Discharge Rx Participant: Yes New Discharge Prescriptions: New Ertapenem [INVanz] 1 gm IVPB DAILY #7 each Triamcinolone 0.1% Paste [Oralone 0.1% Paste] 1 applic MUCOUS MEM PC-BID 4 Days each QUEtiapine [SEROquel] 25 mg PO HS tab Continue allopurinoL [Zyloprim] 100 mg PO DAILY Losartan Potassium [Cozaar] 100 mg PO DAILY Apixaban [Eliquis] 5 mg PO BID #60 tab Multivit-Min/Iron/Folic/Lutein [Centrum Silver Women Tablet] 1 tab PO DAILY Ezetimibe [Zetia] 10 mg PO DAILY Dapagliflozin Propanediol [Farxiga] 10 mg PO DAILY Furosemide [Lasix] 20 mg PO DAILY PRN PRN Reason: Edema hydroCHLOROthiazide [Hydrodiuril] 25 mg PO DAILY Melatonin 10 mg PO HS PRN PRN Reason: Insomnia DULoxetine HCL [Cymbalta] 30 mg PO HS Verapamil HCl [Calan] 120 mg PO DAILY Vitamin B Complex 1 cap PO DAILY Cholecalciferol [Vitamin D3 (25 Mcg = 1000 Iu)] 25 mcg PO DAILY DULoxetine HCL [Cymbalta] 60 mg PO DAILY Azo D-Mannose 500mg 2,000 mg PO DAILY Acetaminophen Tab [Tylenol] 650 mg PO Q6H PRN PRN Reason: Pain Or Fever > 100.5 L.acidoph,Paracasei, B.lactis [Probiotic] 1 cap PO DAILY Potassium Chloride [Klor-Con M10] 10 meq PO DAILY PRN PRN Reason: take with furosemide Ubidecarenone [Coenzyme Q10] 200 mg PO DAILY Cyclobenzaprine [Flexeril] 10 mg PO TID PRN 30 Days #90 tab PRN Reason: Muscle Spasm Semaglutide [Ozempic] 1 mg SQ Q7D Pregabalin [Lyrica] 200 mg PO BID #6 cap Changed HYDROcodone/APAP 7.5-325MG [[place] 7.5-325] 1 tab PO QID PRN #12 tab PRN Reason: Pain Discharge Medication List allopurinoL [Zyloprim] 100 mg PO DAILY 09/21/20 [History] Cholecalciferol [Vitamin D3 (25 Mcg = 1000 Iu)] 25 mcg PO DAILY 11/04/22 [History] Losartan Potassium [Cozaar] 100 mg PO DAILY 11/04/22 [History] Vitamin B Complex 1 cap PO DAILY 11/04/22 [History] Apixaban [Eliquis] 5 mg PO BID #60 tab 11/13/22 [Rx] DULoxetine HCL [Cymbalta] 60 mg PO DAILY 01/03/23 [History] Multivit-Min/Iron/Folic/Lutein [Centrum Silver Women Tablet] 1 tab PO DAILY 01/03/23 [History] Dapagliflozin Propanediol [Farxiga] 10 mg PO DAILY 07/17/23 [History] Ezetimibe [Zetia] 10 mg PO DAILY 07/17/23 [History] Furosemide [Lasix] 20 mg PO DAILY PRN 07/17/23 [History] Acetaminophen Tab [Tylenol] 650 mg PO Q6H PRN 09/12/23 [History] Azo D-Mannose 500mg 2,000 mg PO DAILY 09/12/23 [History] L.acidoph,Paracasei, B.lactis [Probiotic] 1 cap PO DAILY 09/12/23 [History] Melatonin 10 mg PO HS PRN 09/12/23 [History] Potassium Chloride [Klor-Con M10] 10 meq PO DAILY PRN 09/12/23 [History] Ubidecarenone [Coenzyme Q10] 200 mg PO DAILY 09/12/23 [History] hydroCHLOROthiazide [Hydrodiuril] 25 mg PO DAILY 09/12/23 [History] Cyclobenzaprine [Flexeril] 10 mg PO TID PRN 30 Days #90 tab 06/07/24 [Rx] DULoxetine HCL [Cymbalta] 30 mg PO HS 06/22/24 [History] Semaglutide [Ozempic] 1 mg SQ Q7D 07/21/24 [History] Verapamil HCl [Calan] 120 mg PO DAILY 07/21/24 [History] Ertapenem [INVanz] 1 gm IVPB DAILY #7 each 07/26/24 [Rx] HYDROcodone/APAP 7.5-325MG [[place] 7.5-325] 1 tab PO QID PRN #12 tab 07/26/24 [Rx] Pregabalin [Lyrica] 200 mg PO BID #6 cap 07/26/24 [Rx] QUEtiapine [SEROquel] 25 mg PO HS tab 07/26/24 [Rx] Triamcinolone 0.1% Paste [Oralone 0.1% Paste] 1 applic MUCOUS MEM PC-BID 4 Days each 07/26/24 [Rx] Follow up Appointment(s)/Referral(s): Olya Austin MD [Primary Care Provider] - 1 Week (At [facility]) Nacho Perales MD [STAFF PHYSICIAN] - 2 Weeks Discharge Disposition: TRANSFER TO SNF/ECF
[2024-07-26 17:13] LABS: Glucose,Whole Blood 133 mg/dL (70-110)
--- NOTE | 2024-07-26 17:52 | P.PN ---
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 Patient was brought into the emergency department at [facility] yesterday with mental status changes while she was living at her assisted living facility, patient became quite confused and her daughter was suspicious for urinary tract infection, she was seen and evaluated in the emergency department, she did not have any leukocytosis, however her urine was quite positive, she was admitted to the hospital for acute urinary tract infection with SIRS along with metabolic encephalopathy, she was started initially on IV antibiotic Levaquin x 1, and thus was discontinued by infectious ease in the doctor and she was started on Azactam 2 g piggyback every 8 hours, she was admitted to hospital blood cultures, urine cultures were obtained, patient was placed on IV fluid resuscitation in the form of normal saline 75 cc an hour because of metabolic encephalopathy as well as because sepsis, patient also was confused quite a bit yesterday, she did receive a dose of Seroquel 25 mg at bedtime. 07/22: Patient is sitting up in bed in no apparent distress, she was placed on 2 L nasal cannula because her oxygenation dropped to 87%, likely due to atelectasis, and not taking enough deep breath, she is currently on room air at 95%, patient did have a bowel movement, she denies any chest pain, or shortness of breath, she has no abdominal pain, nausea vomiting or diarrhea, she continues to tolerate her treatment very well, she is more awake and alert today, she has no other issues, her encephalopathy has gotten much better today. She has been tolerating Azactam 2 g IV piggyback every 8 hours so far. Due to her multiple allergies. 07/23: Patient sitting up in bed in no apparent distress, she denies any chest pain, shortness of breath, she has no abdominal pain, she did have a bowel movement yesterday, she has no bleeding in her stool as much, repeated CBC still pending the time of dictation, she has no other symptoms, continue with IV antibiotic in the form of Azactam 2 g piggyback every 8 hours, monitor the patient cultures very closely, keep the patient in the hospital until the cultures are back. 07/24: Patient is sitting up in bed in no apparent distress, she denies any chest pain, shortness of breath, her urine cultures finalized to E. coli that is multidrug-resistant, she was taken off Azactam and started on Invanz 1 g of piggyback every 24 hours, will continue to follow the patient very closely, and will monitor clinical response. 07/25: Patient is sitting up in bed in no apparent distress, she is complaining of pain at the side of her tongue where she had her biopsy of the ulcer of the tongue, she has been under the care of oral surgery, she has been having these issues for the past 6 months, I will start the patient on triamcinolone paste 0.1% to be applied to the side of the tongue twice every day for the next 5 days, continue current treatment plan with Invanz 1 g IV piggyback every 24 hours, due to resistant E. coli, patient will be monitored very closely during her hospital stay, infectious diseases following, patient did have a good bowel movement, she has no other issues at this point in time, we will discuss with infectious disease whether or not the patient she should stay on IV antibiotic or she can be switched to oral antibiotic in view of her multiple drug allergies. 07/26: Patient is doing better today, we will arrange for a midline placement for the patient to continue to have a IV antibiotic in the form of Invanz 1 g every back every day for the next 7 days, then the patient can be discharged to a subacute rehabilitation while she is getting her IV antibiotic likely [facility] then she can go home after that. REVIEW OF SYSTEMS Constitutional: No fever, no chills, no night sweats. No weight change. positive for weakness, fatigue or lethargy. No daytime sleepiness. HEENT: No headache. No blurred vision or double vision, no loss of vision. Chronic loss of Hearing, no ringing in the ears, no dizziness. No nasal drainage or congestion. No epistaxis. No sore throat. Lungs: No shortness of breath, cough, no sputum production. No wheezing. Cardiovascular: No chest pain, no lower extremity edema. No palpitations. No paroxysmal nocturnal dyspnea. No orthopnea. No lightheadedness or dizziness. No syncopal episodes. Abdominal: No abdominal pain. No nausea, vomiting. No diarrhea. No constipation. No bloody or tarry stools. No loss of appetite. Genitourinary: positive for dysuria, positive for frequency, urgency. No urinary retention. Musculoskeletal: No myalgias. Noted muscle weakness, noted gait dysfunction, fall at home. No back pain. No neck pain. Right knee discomfort Integumentary: Right knee wounds. No rash or pruritus. No unusual bruising. No change in hair or nails. Neurologic: Noted aphasia. No facial droop. Noted change in mentation. No head injury. No headache. No paralysis. No paresthesia. Psychiatric: No depression. No anxiety. No mood swings.positive for mental status changes Endocrine: No abnormal blood sugars. No weight change. No excessive sweating or thirst. No cold intolerance. PHYSICAL EXAMINATION Gen: This is an 84-year-old obese female appears confused getting better today in the morning. HEENT: Head is atraumatic, normocephalic. Pupils equal, round. Sclerae is anicteric. NECK: Supple. No JVD. No lymphadenopathy. No thyromegaly. LUNGS: Clear to auscultation. No wheezes or rhonchi. No intercostal retractions. HEART: First heart sound is depressed, second heart sound is normal, 2/6 systolic ejection murmur at the left sternal border. ABDOMEN: Soft, mild tenderness to the epigastric area, no rebound or guarding positive bowel sounds EXTREMITIES: +1 pedal edema. No calf tenderness, DP+2 bilaterally. NEUROLOGICAL: Patient is awake, alert and oriented to person and place, CN II- XII are grossly intact muscle power 4/5 in bilateral upper and lower extremities. ASSESSMENT AND PLAN 1. Metabolic encephalopathy likely related to urinary tract infection with sepsis. Continue patient on Invanz 1 g piggyback every 24 hours 2. Multidrug-resistant E. coli patient is on Invanz 1 g piggyback every 24 h ours. 3. Paroxysmal Atrial fibrillation. Continue Eliquis 5 mg orally twice every day. Continue verapamil 120 mg daily. 4. Hypertension and hypertensive cardiovascular disease. Continue patient on hydrochlorothiazide 25 mg daily, losartan 100 mg daily, and verapamil 120 mg daily. Monitor the patient blood pressure very closely. 5. Hyperlipidemia. we will continue Zetia 10 mg po daily patient is not able to tolerate statin at this point in time. [facility] 6. Diabetes mellitus type 2. Continue patient on add NovoLog scale before meals and at bedtime, we will continue with Farxiga 10 mg po daily we will continue with Ozempic 0.5 mg subcutaneously every week., 7. Diabetic polyneuropathy. Continue Duloxetin 60 mg po daily continue pregabalin 50 mg orally twice every day for 8. 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 Continue pregabalin 200 mg orally twice every day. Continue patient on current pain management as well. 9. Idiopathic gout. Continue allopurinol 100 mg daily. 10. Obstructive sleep apnea. Continue CPAP. 11. GI prophylaxis and gastroesophageal reflux disease. Continue Protonix 40 mg po daily 12. DVT prophylaxis. Continue Eliquis 5 mg orally twice every day. 13. Diabetic polyneuropathy. Continue pregabalin 200 mg orally twice every day. 14. Acute hypoxemic respiratory insufficiency likely due to atelectasis chest x-ray on the presentation was negative, discontinue IV fluid at this time, increase the use of incentive spirometer, discontinue oxygen, recheck her oxygenation on room air is 95% at this time. Initially was 87%. Her oxygen is stable at this time 15. Mild rectal bleeding likely related to hemorrhoidal bleed, repeat the patient CBC again in the next 24 hours. CBC from today still pending at the time of dictation. 16. Acute drop in hemoglobin due to hemoconcentration and minimal rectal bleeding due to hemorrhoidal bleed. Monitor the patient CBC, discontinue IV fluid, follow-up with the patient very closely. 17. Left tongue ulcer status post biopsies start the patient on triamcinolone paste 0.1% to be applied twice a day for 5 days 18. pressroom worker consultation for discharge planning. 19. Physical therapy evaluation. 20. Midline placement for the patient to go for subacute rehabilitation for IV antibiotic in the form of Invanz 1 g IV piggyback daily for 7 days Objective - Vital Signs Vital signs: Vital Signs Temp 97.7 F 07/26/24 01:29 Pulse 78 07/26/24 01:29 Resp 18 07/26/24 01:29 BP 109/64 07/26/24 01:29 Pulse Ox 94 L 07/26/24 01:29 FiO2 Intake & Output 07/25/24 07/25/24 07/26/24 06:59 18:59 06:59 Intake Total 780 Output Total 1 Balance 779 Intake: Oral 780 Output: Urine 1 Other: Voiding Method Bedside Commode Toilet Toilet Diaper Bedside Commode Bedside Commode Incontinent Diaper Diaper Incontinent Incontinent # Voids 2 3 1 # Bowel Movements 3 1 - Labs CBC & Chem 7: 07/25/24 02:59 07/25/24 02:59 Labs: Abnormal Lab Results - Last 24 Hours (Table) 07/25/24 07/25/24 07/25/24 Range/Units 02:59 02:59 07:40 Hgb 11.9 L (12.0-15.0) g/dL MCHC 30.7 L (32.0-37.0) g/dL RDW 16.5 H (11.5-14.5) % BUN/Creatinine Ratio 30.00 H (12.00-20.00) Ratio Glucose 119 H (70-110) mg/dL POC Glucose (mg/dL) 113 H (70-110) mg/dL Total Bilirubin <0.2 L (0.3-1.2) mg/dL Total Protein 5.7 L (6.2-8.2) g/dL Albumin 3.6 L (3.8-4.9) g/dL 07/25/24 07/25/24 Range/Units 17:15 20:03 Hgb (12.0-15.0) g/dL MCHC (32.0-37.0) g/dL RDW (11.5-14.5) % BUN/Creatinine Ratio (12.00-20.00) Ratio Glucose (70-110) mg/dL POC Glucose (mg/dL) 124 H 175 H (70-110) mg/dL Total Bilirubin (0.3-1.2) mg/dL Total Protein (6.2-8.2) g/dL Albumin (3.8-4.9) g/dL Microbiology - Last 24 Hours (Table) 07/20/24 21:55 Blood Culture - Final Blood
[2024-07-26 20:15] LABS: Glucose,Whole Blood 148 mg/dL (70-110)
--- NOTE | 2024-07-26 21:02 | P.PN ---
Subjective Progress Note Date: 07/26/24 Principal diagnosis: Reason for follow-up is gram-negative urinary tract infection with multiple antibiotic allergies Patient is a 84-year-old female with a past medical history significant for CVA TIA diabetes mellitus hypertension reflux PE rheumatoid arthritis history of recurrent UTI and did have multiple antibiotic allergies patient has been brought into the hospital for evaluation of mental status changes and dysuria, patient be diagnosed with a symptomatic UTI prompting this consultation. On today's evaluation that is 07/26/2024, patient has been afebrile, patient is breathing comfortably and is currently on room air, patient denies having any significant cough no chest pain, patient denies nausea vomiting or diarrhea and no abdominal pain, mention feeling better. Patient did have white count of 4.48 creatinine 0.8 blood culture has been negative Objective - Vital Signs Vital signs: Vital Signs Temp 98.4 F 07/26/24 07:50 Pulse 75 07/26/24 07:50 Resp 16 07/26/24 07:50 BP 132/77 07/26/24 07:50 Pulse Ox 95 07/26/24 07:50 FiO2 Intake & Output 07/25/24 07/26/24 07/26/24 18:59 06:59 18:59 Intake Total 780 Output Total 1 Balance 779 Intake: Oral 780 Output: Urine 1 Other: Voiding Method Toilet Toilet Bedside Commode Bedside Commode Bedside Commode Diaper Diaper Incontinent Incontinent # Voids 3 1 # Bowel Movements 1 - Exam Elderly female up in the chair in no distress No tachypnea or accessory muscle respiration use Unlabored breathing Patient is awake alert oriented mood and affect is normal - Labs CBC & Chem 7: 07/26/24 05:34 07/26/24 05:34 Labs: Abnormal Lab Results - Last 24 Hours (Table) 07/25/24 07/25/24 07/26/24 Range/Units 17:15 20:03 05:34 WBC 4.48 L (4.50-10.00) X 10*3/uL Hgb 11.6 L (12.0-15.0) g/dL Hct 37.1 L (37.2-46.3) % MCHC 31.3 L (32.0-37.0) g/dL RDW 16.1 H (11.5-14.5) % Anion Gap (4.00-12.00) mmol/L BUN/Creatinine Ratio (12.00-20.00) Ratio Glucose (70-110) mg/dL POC Glucose (mg/dL) 124 H 175 H (70-110) mg/dL Total Bilirubin (0.3-1.2) mg/dL Total Protein (6.2-8.2) g/dL Albumin (3.8-4.9) g/dL 07/26/24 07/26/24 Range/Units 05:34 12:06 WBC (4.50-10.00) X 10*3/uL Hgb (12.0-15.0) g/dL Hct (37.2-46.3) % MCHC (32.0-37.0) g/dL RDW (11.5-14.5) % Anion Gap 12.30 H (4.00-12.00) mmol/L BUN/Creatinine Ratio 30.50 H (12.00-20.00) Ratio Glucose 125 H (70-110) mg/dL POC Glucose (mg/dL) 121 H (70-110) mg/dL Total Bilirubin <0.2 L (0.3-1.2) mg/dL Total Protein 5.3 L (6.2-8.2) g/dL Albumin 3.5 L (3.8-4.9) g/dL Microbiology - Last 24 Hours (Table) 07/20/24 21:55 Blood Culture - Final Blood Assessment and Plan (1) UTI (urinary tract infection) Current Visit: Yes Status: Acute Code(s): N39.0 - URINARY TRACT INFECTION, SITE NOT SPECIFIED SNOMED Code(s): 45490929 (2) Allergy to multiple antibiotics Current Visit: No Status: Acute Code(s): Z88.1 - ALLERGY STATUS TO OTHER ANTIBIOTIC AGENTS SNOMED Code(s): 805825826 Plan: 1patient presented to hospital mental status changes and the patient also have dysuria with significantly positive UA likely concerning for a symptomatic UTI and likely from enteric gram-negative pathogen with a last urine culture did show E. coli that was resistant to Levaquin 2-patient with multiple antibiotic ALLERGIES that would limit the number of antibiotic safe to use 3-patient urine has been finalized with a multidrug-resistant E. coli for the patient is currently being treated with Invanz 4plan is for 7-day course of Invanz on discharge, currently waiting for placement Dictation was produced using [employer] dictation software. please excuse any grammatical, word or spelling errors. Time with Patient: Less than 30
[2024-07-27 07:22] LABS: Glucose,Whole Blood 105 mg/dL (70-110)
--- NOTE | 2024-07-27 11:47 | P.PN ---
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 Patient was brought into the emergency department at [facility] yesterday with mental status changes while she was living at her assisted living facility, patient became quite confused and her daughter was suspicious for urinary tract infection, she was seen and evaluated in the emergency department, she did not have any leukocytosis, however her urine was quite positive, she was admitted to the hospital for acute urinary tract infection with SIRS along with metabolic encephalopathy, she was started initially on IV antibiotic Levaquin x 1, and thus was discontinued by infectious ease in the doctor and she was started on Azactam 2 g piggyback every 8 hours, she was admitted to hospital blood cultures, urine cultures were obtained, patient was placed on IV fluid resuscitation in the form of normal saline 75 cc an hour because of metabolic encephalopathy as well as because sepsis, patient also was confused quite a bit yesterday, she did receive a dose of Seroquel 25 mg at bedtime. 07/22: Patient is sitting up in bed in no apparent distress, she was placed on 2 L nasal cannula because her oxygenation dropped to 87%, likely due to atelectasis, and not taking enough deep breath, she is currently on room air at 95%, patient did have a bowel movement, she denies any chest pain, or shortness of breath, she has no abdominal pain, nausea vomiting or diarrhea, she continues to tolerate her treatment very well, she is more awake and alert today, she has no other issues, her encephalopathy has gotten much better today. She has been tolerating Azactam 2 g IV piggyback every 8 hours so far. Due to her multiple allergies. 07/23: Patient sitting up in bed in no apparent distress, she denies any chest pain, shortness of breath, she has no abdominal pain, she did have a bowel movement yesterday, she has no bleeding in her stool as much, repeated CBC still pending the time of dictation, she has no other symptoms, continue with IV antibiotic in the form of Azactam 2 g piggyback every 8 hours, monitor the patient cultures very closely, keep the patient in the hospital until the cultures are back. 07/24: Patient is sitting up in bed in no apparent distress, she denies any chest pain, shortness of breath, her urine cultures finalized to E. coli that is multidrug-resistant, she was taken off Azactam and started on Invanz 1 g of piggyback every 24 hours, will continue to follow the patient very closely, and will monitor clinical response. 07/25: Patient is sitting up in bed in no apparent distress, she is complaining of pain at the side of her tongue where she had her biopsy of the ulcer of the tongue, she has been under the care of oral surgery, she has been having these issues for the past 6 months, I will start the patient on triamcinolone paste 0.1% to be applied to the side of the tongue twice every day for the next 5 days, continue current treatment plan with Invanz 1 g IV piggyback every 24 hours, due to resistant E. coli, patient will be monitored very closely during her hospital stay, infectious diseases following, patient did have a good bowel movement, she has no other issues at this point in time, we will discuss with infectious disease whether or not the patient she should stay on IV antibiotic or she can be switched to oral antibiotic in view of her multiple drug allergies. 07/26: Patient is doing better today, we will arrange for a midline placement for the patient to continue to have a IV antibiotic in the form of Invanz 1 g every back every day for the next 7 days, then the patient can be discharged to a subacute rehabilitation while she is getting her IV antibiotic likely [facility] then she can go home after that. 07/27: Patient is laying down in bed in no apparent distress, she had her midline placed in the left upper extremity, she was started on Invanz 1 g piggyback every 24 hours, awaiting [employer] prior authorization for the patient to be transferred to the extended care facility for IV antibiotic due to her ESBL E. coli. That is multidrug resistant organism, patient appears to be doing fine otherwise, she will be discharged later on this afternoon hopefully if the prior authorization is achieved REVIEW OF SYSTEMS Constitutional: No fever, no chills, no night sweats. No weight change. p ositive for weakness, fatigue or lethargy. No daytime sleepiness. HEENT: No headache. No blurred vision or double vision, no loss of vision. Chronic loss of Hearing, no ringing in the ears, no dizziness. No nasal drainage or congestion. No epistaxis. No sore throat. Lungs: No shortness of breath, cough, no sputum production. No wheezing. Cardiovascular: No chest pain, no lower extremity edema. No palpitations. No paroxysmal nocturnal dyspnea. No orthopnea. No lightheadedness or dizziness. No syncopal episodes. Abdominal: No abdominal pain. No nausea, vomiting. No diarrhea. No co nstipation. No bloody or tarry stools. No loss of appetite. Genitourinary: positive for dysuria, positive for frequency, urgency. No urinary retention. Musculoskeletal: No myalgias. Noted muscle weakness, noted gait dysfunction, fall at home. No back pain. No neck pain. Right knee discomfort Integumentary: Right knee wounds. No rash or pruritus. No unusual bruising. No change in hair or nails. Neurologic: Noted aphasia. No facial droop. Noted change in mentation. No head injury. No headache. No paralysis. No paresthesia. Psychiatric: No depression. No anxiety. No mood swings.positive for mental status changes Endocrine: No abnormal blood sugars. No weight change. No excessive sweating or thirst. No cold intolerance. PHYSICAL EXAMINATION Gen: This is an 84-year-old obese female appears confused getting better today in the morning. HEENT: Head is atraumatic, normocephalic. Pupils equal, round. Sclerae is anicteric. NECK: Supple. No JVD. No lymphadenopathy. No thyromegaly. LUNGS: Clear to auscultation. No wheezes or rhonchi. No intercostal retractions. HEART: First heart sound is depressed, second heart sound is normal, 2/6 systolic ejection murmur at the left sternal border. ABDOMEN: Soft, mild tenderness to the epigastric area, no rebound or guarding positive bowel sounds EXTREMITIES: +1 pedal edema. No calf tenderness, DP+2 bilaterally. NEUROLOGICAL: Patient is awake, alert and oriented to person and place, CN II- XII are grossly intact muscle power 4/5 in bilateral upper and lower extremities. ASSESSMENT AND PLAN 1. Metabolic encephalopathy likely related to urinary tract infection with sepsis. Continue patient on Invanz 1 g piggyback every 24 hours 2. Multidrug-resistant E. coli patient is on Invanz 1 g piggyback every 24 hour s. 3. Paroxysmal Atrial fibrillation. Continue Eliquis 5 mg orally twice every day. Continue verapamil 120 mg daily. 4. Hypertension and hypertensive cardiovascular disease. Continue patient on hydrochlorothiazide 25 mg daily, losartan 100 mg daily, and verapamil 120 mg daily. Monitor the patient blood pressure very closely. 5. Hyperlipidemia. we will continue Zetia 10 mg po daily patient is not able to tolerate statin at this point in time. She can be offered Repatha as an outpati ent. 6. Diabetes mellitus type 2. Continue patient on add NovoLog scale before meals and at bedtime, we will continue with Farxiga 10 mg po daily we will continue with Ozempic 0.5 mg subcutaneously every week., 7. Diabetic polyneuropathy. Continue Duloxetin 60 mg po daily continue pregabalin 50 mg orally twice every day for 8. 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 Continue pregabalin 200 mg orally twice every day. Continue patient on current pain management as well. 9. Idiopathic gout. Continue allopurinol 100 mg daily. 10. Obstructive sleep apnea. Continue CPAP. 11. GI prophylaxis and gastroesophageal reflux disease. Continue Protonix 40 mg po daily 12. DVT prophylaxis. Continue Eliquis 5 mg orally twice every day. 13. Diabetic polyneuropathy. Continue pregabalin 200 mg orally twice every day. 14. Acute hypoxemic respiratory insufficiency likely due to atelectasis chest x-ray on the presentation was negative, discontinue IV fluid at this time, increase the use of incentive spirometer, discontinue oxygen, recheck her oxygenation on room air is 95% at this time. Initially was 87%. Her oxygen is stable at this time 15. Mild rectal bleeding likely related to hemorrhoidal bleed, repeat the patient CBC again in the next 24 hours. CBC from today still pending at the time of dictation. 16. Acute drop in hemoglobin due to hemoconcentration and minimal rectal bleeding due to hemorrhoidal bleed. Monitor the patient CBC, discontinue IV fluid, follow-up with the patient very closely. 17. Left tongue ulcer status post biopsies start the patient on triamcinolone paste 0.1% to be applied twice a day for 5 days 18. remelt worker consultation for discharge planning. 19. Physical therapy evaluation. 20. patient is medically stable to be discharged to [facility] if prior authorization is achieved. Objective - Vital Signs Vital signs: Vital Signs Temp 97.6 F 07/27/24 07:14 Pulse 61 07/27/24 07:14 Resp 18 07/27/24 07:14 BP 120/71 07/27/24 07:14 Pulse Ox 93 L 07/27/24 07:14 FiO2 Intake & Output 07/26/24 07/27/24 07/27/24 18:59 06:59 18:59 Intake Total 1560 222 Balance 1560 222 Intake: Oral 1560 222 Other: Voiding Method Bedside Commode Bedside Commode Toilet Bedside Commode # Voids 4 2 # Bowel Movements 3 - Labs CBC & Chem 7: 07/26/24 05:34 07/26/24 05:34 Labs: Abnormal Lab Results - Last 24 Hours (Table) 07/26/24 07/26/24 07/26/24 Range/Units 12:06 17:09 20:12 POC Glucose (mg/dL) 121 H 133 H 148 H (70-110) mg/dL
[2024-07-27 12:12] LABS: Glucose,Whole Blood 111 mg/dL (70-110)
[2024-07-27 13:58] VITALS: BP 126/72; PULSE 78; RESP 16; TEMP 98.2
[2024-07-27 15:27] VITALS: BMI 37.8
--- NOTE | 2024-07-27 15:47 | P.PN ---
Subjective Progress Note Date: 07/27/24 Principal diagnosis: Reason for follow-up is gram-negative urinary tract infection with multiple antibiotic allergies Patient is a 84-year-old female with a past medical history significant for CVA TIA diabetes mellitus hypertension reflux PE rheumatoid arthritis history of recurrent UTI and did have multiple antibiotic allergies patient has been brought into the hospital for evaluation of mental status changes and dysuria, patient be diagnosed with a symptomatic UTI prompting this consultation. On today's evaluation that is 07/27/2024, Patient is afebrile this morning patient denies having any chest pain shortness of breath or cough, the patient is currently on room air, patient denies any abdominal pain no diarrhea no nausea no vomiting, mention feeling better. No new lab has been obtained today blood culture has been negative Objective - Vital Signs Vital signs: Vital Signs Temp 97.6 F 07/27/24 07:14 Pulse 61 07/27/24 07:14 Resp 18 07/27/24 07:14 BP 120/71 07/27/24 07:14 Pulse Ox 93 L 07/27/24 07:14 FiO2 Intake & Output 07/26/24 07/27/24 07/27/24 18:59 06:59 18:59 Intake Total 1560 222 Balance 1560 222 Intake: Oral 1560 222 Other: Voiding Method Bedside Commode Bedside Commode Toilet Bedside Commode # Voids 4 2 # Bowel Movements 3 - Exam Elderly female up in the chair in no distress No tachypnea or accessory muscle respiration use Unlabored breathing Patient is awake alert oriented mood and affect is normal - Labs CBC & Chem 7: 07/26/24 05:34 07/26/24 05:34 Labs: Abnormal Lab Results - Last 24 Hours (Table) 07/26/24 07/26/24 07/27/24 Range/Units 17:09 20:12 12:09 POC Glucose (mg/dL) 133 H 148 H 111 H (70-110) mg/dL Assessment and Plan (1) UTI (urinary tract infection) Current Visit: Yes Status: Acute Code(s): N39.0 - URINARY TRACT INFECTION, SITE NOT SPECIFIED SNOMED Code(s): 79330253 (2) Allergy to multiple antibiotics Current Visit: No Status: Acute Code(s): Z88.1 - ALLERGY STATUS TO OTHER ANTIBIOTIC AGENTS SNOMED Code(s): 239747218 Plan: 1patient presented to hospital mental status changes and the patient also have dysuria with significantly positive UA likely concerning for a symptomatic UTI and likely from enteric gram-negative pathogen with a last urine culture did show E. coli that was resistant to Levaquin 2-patient with multiple antibiotic ALLERGIES that would limit the number of antibiotic safe to use 3-patient urine has been finalized with a multidrug-resistant E. coli for the patient is currently being treated with Invanz, currently waiting for outpatient IV antibiotic arrangement before discharge plan is for a 7-day course of Invanz Dictation was produced using [employer] software. please excuse any grammatical, word or spelling errors. Time with Patient: Less than 30
[2024-07-27] MEDS: CHOLESTYRAMINE (WITH SUGAR) 4 GM PACKET PO SCH (16:29)
== END 2024-07-27 16:45 | DRG 871 ==
LOC: EC 16:25 → 5NMEDONC 21:17 → OBSVTOIN 21:17 → INTOOBSV 21:17 → 5NMEDONC 21:53
PROVIDERS: ADMIT Internal Medicine; ATTEND Internal Medicine
DX: A41.51 Sepsis due to Escherichia coli [E. coli] (principal); G93.41 Metabolic encephalopathy; N39.0 Urinary tract infection, site not specified; J98.11 Atelectasis; K62.5 Hemorrhage of anus and rectum; Z16.24 Resistance to multiple antibiotics; R71.0 Precipitous drop in hematocrit; E11.42 Type 2 diabetes mellitus with diabetic polyneuropathy; I11.9 Hypertensive heart disease without heart failure; I48.0 Paroxysmal atrial fibrillation; M06.9 Rheumatoid arthritis, unspecified; E78.5 Hyperlipidemia, unspecified; G47.33 Obstructive sleep apnea (adult) (pediatric); K21.9 Gastro-esophageal reflux disease without esophagitis; M10.00 Idiopathic gout, unspecified site; M17.0 Bilateral primary osteoarthritis of knee; M79.7 Fibromyalgia; B96.20 Unspecified Escherichia coli [E. coli] as the cause of diseases classified elsewhere; K14.0 Glossitis; M47.26 Other spondylosis with radiculopathy, lumbar region; K64.9 Unspecified hemorrhoids; R09.02 Hypoxemia; Z96.651 Presence of right artificial knee joint; Z79.01 Long term (current) use of anticoagulants; Z88.1 Allergy status to other antibiotic agents; Z79.84 Long term (current) use of oral hypoglycemic drugs; Z79.85 Long-term (current) use of injectable non-insulin antidiabetic drugs; Z79.899 Other long term (current) drug therapy; Z88.5 Allergy status to narcotic agent; Z88.0 Allergy status to penicillin; Z86.711 Personal history of pulmonary embolism; Z86.73 Personal history of transient ischemic attack (TIA), and cerebral infarction without residual deficits; Z90.710 Acquired absence of both cervix and uterus; Z82.49 Family history of ischemic heart disease and other diseases of the circulatory system
CPT/HCPCS: 36410; 36415; 51701; 71045; 76937; 80053; 81001; 83605; 84484; 85025; 85610; 85730; 87040; 87077; 87086; 87186; 93005; 96365; 96366; 96375; 99285

== ENCOUNTER 2024-08-19 12:50 | Inpatient (IN) | payer MEDICARE, OTHER ==
--- NOTE | 2024-08-19 16:10 | ED ---
Abdominal Pain HPI - General Chief Complaint: Abdominal Pain Stated Complaint: diverticulitis Time Seen by Provider: 08/19/24 15:23 Source: patient, family Mode of arrival: wheelchair Limitations: no limitations - History of Present Illness Initial Comments: This patient is an 84-year-old woman who presents to have evaluation of right sided abdominal pain. The patient states that pain started Friday in the early afternoon. She describes it as cramping and aching. She has had associated nausea and vomiting. She states that there was some blood with the emesis yesterday. She states that she saw her physician Dr. Austin in the clinic on yesternday and that he was going to arrange CT scan but that has not happened and that when the pain continued he advised family to bring her to emergency department. Patient has not noted fevers. She has not noted change in bowel movements or urination. MD Complaint: abdominal pain Onset/Timin -: days(s) Location: RUQ, RLQ Radiation: none Migration to: no migration Severity: severe Quality: cramping, aching Consistency: constant Improves With: nothing Worsens With: nothing Associated Symptoms: nausea, vomiting - Related Data Home Medications Medication Instructions Recorded Confirmed allopurinoL [Zyloprim] 100 mg PO DAILY 09/21/20 08/19/24 Cholecalciferol [Vitamin D3 (25 25 mcg PO DAILY 11/04/22 08/19/24 Mcg = 1000 Iu)] Losartan Potassium [Cozaar] 100 mg PO DAILY 11/04/22 08/19/24 Vitamin B Complex 1 cap PO DAILY 11/04/22 08/19/24 DULoxetine HCL [Cymbalta] 60 mg PO DAILY 01/03/23 08/19/24 Multivit-Min/Iron/Folic/Lutein 1 tab PO DAILY 01/03/23 08/19/24 [Centrum Silver Women Tablet] Ezetimibe [Zetia] 10 mg PO DAILY 07/17/23 08/19/24 Furosemide [Lasix] 20 mg PO DAILY PRN 07/17/23 08/19/24 Acetaminophen Tab [Tylenol] 650 mg PO Q6H PRN 09/12/23 08/19/24 Azo D-Mannose 500mg 2,000 mg PO DAILY 09/12/23 08/19/24 L.acidoph,Paracasei, B.lactis 1 cap PO DAILY 09/12/23 08/19/24 [Probiotic] Melatonin 10 mg PO HS PRN 09/12/23 08/19/24 Potassium Chloride [Klor-Con M10] 10 meq PO DAILY PRN 09/12/23 08/19/24 Ubidecarenone [Coenzyme Q10] 200 mg PO DAILY 09/12/23 08/19/24 hydroCHLOROthiazide [Hydrodiuril] 25 mg PO DAILY 09/12/23 08/19/24 DULoxetine HCL [Cymbalta] 30 mg PO HS 06/22/24 08/19/24 Semaglutide [Ozempic] 1 mg SQ TH 07/21/24 08/19/24 Verapamil HCl [Calan] 120 mg PO DAILY 07/21/24 08/19/24 HYDROcodone/APAP 7.5-325MG [[place] 1 tab PO TID 08/19/24 08/19/24 7.5-325] Previous Rx's Medication Instructions Recorded Apixaban [Eliquis] 5 mg PO BID #60 tab 11/13/22 Cyclobenzaprine [Flexeril] 10 mg PO TID PRN 30 Days #90 tab 06/07/24 Pregabalin [Lyrica] 200 mg PO BID #6 cap 07/26/24 Triamcinolone 0.1% Paste [Oralone 1 applic MUCOUS MEM PC-BID 4 Days 07/26/24 0.1% Paste] each Cholestyramine (with Sugar) 4 gm PO DAILY #0 packet 07/27/24 [Questran Packet] Nitrofurantoin Monohyd/M-Cryst 100 mg PO Q12HR 7 Days #14 cap 08/24/24 [Macrobid] Allergies Allergy/AdvReac Type Severity Reaction Status Date / Time cephalexin [From Keflex] Allergy Rash/Hives Verified 08/19/24 20:22 clindamycin Allergy Rash/Hives Verified 08/19/24 20:22 Penicillins Allergy Unknown Verified 08/19/24 20:22 oxybutynin [From Ditropan] AdvReac Hallucinati Verified 08/19/24 20:22 ons Review of Systems ROS Statement: Those systems with pertinent positive or pertinent negative responses have been documented in the HPI. ROS Other: All systems not noted in ROS Statement are negative. Constitutional: Denies: fever, chills Respiratory: Denies: cough, dyspnea Cardiovascular: Denies: chest pain, palpitations, edema Gastrointestinal: Reports: abdominal pain, nausea, vomiting, hematemesis. Denies: diarrhea, constipation, melena Genitourinary: Denies: dysuria, hematuria Musculoskeletal: Denies: back pain Skin: Denies: rash Neurological: Denies: headache, weakness Hematological/Lymphatic: Denies: easy bleeding Past Medical History Past Medical History: Atrial Fibrillation, CVA/TIA, Diabetes Mellitus, Fibromyalgia, GERD/Reflux, Hypertension, Pneumonia, Pulmonary Embolus (PE), Rheumatoid Arthritis (RA) Additional Past Medical History / Comment(s): recurrent UTIs, cataracts, recent TIA, hx. of PE. History of Any Multi-Drug Resistant Organisms: None Reported Date of last positivie culture/infection: 07/20/24 MDRO Source:: urine Past Surgical History: Back Surgery, Hysterectomy, Joint Replacement, Orthopedic Surgery Additional Past Surgical History / Comment(s): 5 back surgery since 2014, total hysterectomy,R knee replacement Past Anesthesia/Blood Transfusion Reactions: No Reported Reaction Past Psychological History: No Psychological Hx Reported Smoking Status: Never smoker Past Alcohol Use History: Rare Past Drug Use History: None Reported - Past Family History Mother Family Medical History: CVA/TIA, Hyperlipidemia, Hypertension, Myocardial In farction ([place]) General Exam Limitations: no limitations General appearance: alert, in no apparent distress Head exam: Present: atraumatic, normocephalic Eye exam: Present: normal appearance. Absent: scleral icterus, conjunctival injection ENT exam: Present: normal oropharynx Neck exam: Present: normal inspection Respiratory exam: Present: normal lung sounds bilaterally. Absent: respiratory distress, wheezes, rales, rhonchi, stridor, accessory muscle use Cardiovascular Exam: Present: regular rate, normal rhythm, normal heart sounds. Absent: systolic murmur, diastolic murmur, rubs, gallop GI/Abdominal exam: Present: soft, tenderness, hypoactive bowel sounds. Absent: guarding, rebound, rigid, mass, pulsatile mass, hernia Extremities exam: Present: normal inspection, normal capillary refill. Absent: pedal edema, calf tenderness Back exam: Present: normal inspection Neurological exam: Present: alert Skin exam: Present: warm, dry, intact, normal color. Absent: rash Course Vital Signs 08/19/24 08/19/24 08/19/24 13:16 16:16 19:48 Temperature 98.2 F 98.1 F Pulse Rate 98 88 96 Respiratory 20 18 18 Rate Blood Pressure 136/85 131/76 133/81 O2 Sat by Pulse 96 97 96 Oximetry 08/19/24 08/20/24 08/20/24 22:13 02:46 06:03 Temperature 98.3 F Pulse Rate 89 105 H 109 H Respiratory 20 18 18 Rate Blood Pressure 135/85 138/87 156/100 O2 Sat by Pulse 95 96 97 Oximetry Medical Decision Making - Medical Decision Making The patient had CT scan of the abdomen and pelvis that I interpreted as negative for obstruction or free air. No acute surgical condition. Was pt. sent in by a medical professional or institution (, PA, BUSINESS INTELLIGENCE ENGINEER, urgent care, hospital, or long term...) When possible be specific @ -[No] Did you speak to anyone other than the patient for history (EMS, parent, family, police, friend...)? What history was obtained from this source @ -[No] Did you review nursing and triage notes (agree or disagree)? Why? @ -[I reviewed and agree with nursing and triage notes] Were old charts reviewed (outside hosp., previous admission, EMS record, old EKG, old radiological studies, urgent care reports/EKG's, long term records)? Report findings @ -[No old charts were reviewed] Differential Diagnosis (chest pain, altered mental status, abdominal pain women, abdominal pain men, vaginal bleeding, weakness, fever, dyspnea, syncope, headache, dizziness, GI bleed, back pain, seizure, CVA, palpatations, mental health, musculoskeletal)? @ -[Differential Abdominal Pain Women: Appendicitis, Cholecystitis, diverticulosis, ischemic bowel, pancreatitis, hepatitis, UTI, gastroenteritis, AAA, incarcerated hernia, bowel obstruction, constipation, inflammatory bowel, hepatitis, peptic ulcer disease, splenic infarction, perforated viscus, vulvitis, ovarian torsion, PID, kidney stone, p lacenta abruption, this is not meant to be an all-inclusive list EKG interpreted by me (3pts min.). @ -[As above] X-rays interpreted by me (1pt min.). @ -[None done] CT interpreted by me (1pt min.). @ -[I interpreted as above U/S interpreted by me (1pt. min.). @ -[None done] What testing was considered but not performed or refused? (CT, X-rays, U/S, labs)? Why? @ -[None] What meds were considered but not given or refused? Why? @ -[None] Did you discuss the management of the patient with other professionals (professionals i.e. , PA, BUSINESS INTELLIGENCE ENGINEER, lab, RT, psych nurse, geriatric social work professor, wrapper hand, teacher, aoc operations intelligence officer, case management coordinator)? Give summary @ -[Case discussed with admitting physician and treatment recommendations incorporated Was smoking cessation discussed for >3mins.? @ -[No] Was critical care preformed (if so, how long)? @ -[No] Were there social determinants of health that impacted care today? How? (Homelessness, low income, unemployed, alcoholism, drug addiction, transportatio n, low edu. Level, literacy, decrease access to med. care, fpc, rehab)? @ -[No] Was there de-escalation of care discussed even if they declined (Discuss DNR or withdrawal of care, Hospice)? DNR status @ -[No] What co-morbidities impacted this encounter? (DM, HTN, Smoking, COPD, CAD, Cancer, CVA, ARF, Chemo, Hep., AIDS, mental health diagnosis, sleep apnea, morbid obesity)? @ -[None] Was patient admitted / discharged? Hospital course, mention meds given and route, prescriptions, significant lab abnormalities, going to OR and other pertinent info. @ -[Patient is an 84-year-old woman here with abdominal pain nausea and vomiting. The patient did have moderate tenderness and therefore CT scan is obtained that does not reveal exact etiology but no surgical condition present. Patient will be admitted for further evaluation and symptom management Undiagnosed new problem with uncertain prognosis? @ -[No] Drug Therapy requiring intensive monitoring for toxicity (Heparin, Nitro, Insulin, Cardizem)? @ -[No] Were any procedures done? @ -[No] Diagnosis/symptom? @ -[d acute abdominal pain Acute urinary tract infection Intractable nausea and vomiting Acute, or Chronic, or Acute on Chronic? @ -[Acute Uncomplicated (without systemic symptoms) or Complicated (systemic symptoms)? @ -[Uncomplicated Side effects of treatment? @ -[No] Exacerbation, Progression, or Severe Exacerbation? @ -[No] Poses a threat to life or bodily function? How? (Chest pain, [place], [place], pneumonia, PE, COPD, DKA, ARF, appy, cholecystitis, CVA, Diverticulitis, Homicidal, Suicidal, threat to staff... and all critical care pts) @ -[No] All treatments are based on ideal body weight as in ED triage - Lab Data Result diagrams: 08/24/24 05:38 08/24/24 05:38 Lab Results 08/19/24 08/19/24 08/19/24 Range/Units 16:14 16:14 16:14 WBC 8.2 (3.8-10.6) k/uL RBC 4.96 (3.80-5.40) m/uL Hgb 13.6 (11.4-16.0) gm/dL Hct 41.8 (34.0-46.0) % MCV 84.3 (80.0-100.0) fL MCH 27.3 (25.0-35.0) pg MCHC 32.4 (31.0-37.0) g/dL RDW 15.9 H (11.5-15.5) % Plt Count 204 (150-450) k/uL MPV 8.3 Neutrophils % 82 % Lymphocytes % 10 % Monocytes % 6 % Eosinophils % 1 % Basophils % 0 % Neutrophils # 6.7 (1.3-7.7) k/uL Lymphocytes # 0.8 L (1.0-4.8) k/uL Monocytes # 0.5 (0-1.0) k/uL Eosinophils # 0.1 (0-0.7) k/uL Basophils # 0.0 (0-0.2) k/uL PT 11.7 (10.0-12.5) sec INR 1.1 (<1.2) APTT 23.1 (22.0-30.0) sec Sodium 140 (137-145) mmol/L Potassium 4.2 (3.5-5.1) mmol/L Chloride 103 (98-107) mmol/L Carbon Dioxide 26 (22-30) mmol/L Anion Gap 11 mmol/L BUN 18 H (7-17) mg/dL Creatinine 0.79 (0.52-1.04) mg/dL Est GFR (CKD-EPI)AfAm 81 (>60 ml/min/1.73 sqM) Est GFR (CKD-EPI)NonAf 71 (>60 ml/min/1.73 sqM) Glucose 112 H (74-99) mg/dL Plasma Lactic Acid [place] (0.7-2.0) mmol/L Calcium 9.7 (8.4-10.2) mg/dL Total Bilirubin 0.7 (0.2-1.3) mg/dL AST 29 (14-36) U/L ALT 17 (4-34) U/L Alkaline Phosphatase 49 (38-126) U/L C-Reactive Protein 2.1 H (<1.0) mg/dL Total Protein 6.6 (6.3-8.2) g/dL Albumin 4.2 (3.5-5.0) g/dL Amylase 53 (30-110) U/L Lipase 100 (23-300) U/L Urine Color Urine Appearance (Clear) Urine pH (5.0-8.0) Ur Specific [place] (1.001-1.035) Urine Protein (Negative) Urine Glucose (UA) (Negative) Urine Ketones (Negative) Urine Blood (Negative) Urine Nitrite (Negative) Urine Bilirubin (Negative) Urine Urobilinogen (<2.0) mg/dL Ur Leukocyte Esterase (Negative) Urine RBC (0-5) /hpf Urine WBC (0-5) /hpf Urine WBC Clumps (None) /hpf Ur Squamous Epith Cells (0-4) /hpf Urine Bacteria (None) /hpf Urine Mucus (None) /hpf Urine Yeast (Budding) (None) /hpf 08/19/24 08/19/24 Range/Units 16:14 16:53 WBC (3.8-10.6) k/uL RBC (3.80-5.40) m/uL Hgb (11.4-16.0) gm/dL Hct (34.0-46.0) % MCV (80.0-100.0) fL MCH (25.0-35.0) pg MCHC (31.0-37.0) g/dL RDW (11.5-15.5) % Plt Count (150-450) k/uL MPV Neutrophils % % Lymphocytes % % Monocytes % % Eosinophils % % Basophils % % Neutrophils # (1.3-7.7) k/uL Lymphocytes # (1.0-4.8) k/uL Monocytes # (0-1.0) k/uL Eosinophils # (0-0.7) k/uL Basophils # (0-0.2) k/uL PT (10.0-12.5) sec INR (<1.2) APTT (22.0-30.0) sec Sodium (137-145) mmol/L Potassium (3.5-5.1) mmol/L Chloride (98-107) mmol/L Carbon Dioxide (22-30) mmol/L Anion Gap mmol/L BUN (7-17) mg/dL Creatinine (0.52-1.04) mg/dL Est GFR (CKD-EPI)AfAm (>60 ml/min/1.73 sqM) Est GFR (CKD-EPI)NonAf (>60 ml/min/1.73 sqM) Glucose (74-99) mg/dL Plasma Lactic Acid [place] 1.1 (0.7-2.0) mmol/L Calcium (8.4-10.2) mg/dL Total Bilirubin (0.2-1.3) mg/dL AST (14-36) U/L ALT (4-34) U/L Alkaline Phosphatase (38-126) U/L C-Reactive Protein (<1.0) mg/dL Total Protein (6.3-8.2) g/dL Albumin (3.5-5.0) g/dL Amylase (30-110) U/L Lipase (23-300) U/L Urine Color Yellow Urine Appearance Cloudy H (Clear) Urine pH 5.5 (5.0-8.0) Ur Specific [place] 1.027 (1.001-1.035) Urine Protein 1+ H (Negative) Urine Glucose (UA) Trace H (Negative) Urine Ketones 2+ H (Negative) Urine Blood Large H (Negative) Urine Nitrite Positive H (Negative) Urine Bilirubin Negative (Negative) Urine Urobilinogen 2.0 (<2.0) mg/dL Ur Leukocyte Esterase Large H (Negative) Urine RBC >182 H (0-5) /hpf Urine WBC >182 H (0-5) /hpf Urine WBC Clumps Few H (None) /hpf Ur Squamous Epith Cells 19 H (0-4) /hpf Urine Bacteria Many H (None) /hpf Urine Mucus Many H (None) /hpf Urine Yeast (Budding) Few H (None) /hpf - EKG Data -: EKG Interpreted by Me EKG shows normal: sinus rhythm, axis (Normal), intervals (FL interval borderline at 200 ms, other's normal.), QRS complexes (Suspected old inferior infarct based on Q waves lead III aVF. Low voltage QRS complex) Rate: normal (Rate 84 bpm) Disposition Clinical Impression: UTI (urinary tract infection), Abdominal pain Disposition: ADMITTED IP TO THIS HOSP Condition: Fair Is patient prescribed a controlled substance at d/c from ED?: No
[2024-08-19 16:25] LABS: Basophils % (A) 0 %; Eosinophils # (A) 0.1 k/uL (0-0.7); Eosinophils % (A) 1 %; HCT 41.8 % (34.0-46.0); HGB 13.6 gm/dL (11.4-16.0); Lymphocytes # (A) 0.8 k/uL (1.0-4.8); Lymphocytes % (A) 10 %; MCH 27.3 pg (25.0-35.0); MCHC 32.4 g/dL (31.0-37.0); MCV 84.3 fL (80.0-100.0); Mean Platelet Volume 8.3; Monocytes # (A) 0.5 k/uL (0-1.0); Monocytes % (A) 6 %; Neutrophils # (A) 6.7 k/uL (1.3-7.7); Neutrophils % (A) 82 %; Platelet Count 204 k/uL (150-450); RBC 4.96 m/uL (3.80-5.40); RDW 15.9 % (11.5-15.5); WBC 8.2 k/uL (3.8-10.6)
[2024-08-19] MEDS: SODIUM CHLORIDE 0.9% 1,000 ML IV STA (16:25)
[2024-08-19] MEDS: MORPHINE SULFATE 4 MG/ML SYRINGE IV STA ×2 (16:26→19:50)
[2024-08-19 16:34] LABS: ALT 17 U/L (4-34); African American GFR (CKD) 81 (>60 ml/min/1.73 sqM); Albumin 4.2 g/dL (3.5-5.0); Amylase 53 U/L (30-110); Anion Gap 11 mmol/L; Blood Urea Nitrogen 18 mg/dL (7-17); Calcium 9.7 mg/dL (8.4-10.2); Carbon Dioxide 26 mmol/L (22-30); Chloride 103 mmol/L (98-107); Glucose 112 mg/dL (74-99); Lipase 100 U/L (23-300); Non-African American GFR(CKD) 71 (>60 ml/min/1.73 sqM); Sodium 140 mmol/L (137-145); Total Bilirubin 0.7 mg/dL (0.2-1.3); Total Protein 6.6 g/dL (6.3-8.2)
[2024-08-19 16:37] LABS: AST 29 U/L (14-36); Alkaline Phosphatase 49 U/L (38-126); INR 1.1 (<1.2); Partial Thromboplastin Time 23.1 sec (22.0-30.0); Potassium 4.2 mmol/L (3.5-5.1); Prothrombin Time 11.7 sec (10.0-12.5)
[2024-08-19 17:02] LABS: C Reactive Protein 2.1 mg/dL (<1.0)
[2024-08-19 17:11] LABS: Appearance,Urine Cloudy (Clear); Bacteria,Urine Many /hpf; Bilirubin,Urine Negative (Negative); Blood,Urine Large (Negative); Budding Yeast,Urine Few /hpf; Color,Urine Yellow; Glucose,Urine (UA) Trace (Negative); Ketones,Urine 2+ (Negative); Leukocyte Esterase,Urine Large (Negative); Mucus,Urine Many /hpf; Nitrite,Urine Positive (Negative); PH, Urine 5.5 (5.0-8.0); Protein,Urine 1+ (Negative); RBC,Urine >182 /hpf (0-5); Specific Gravity,Urine 1.027 (1.001-1.035); Squamous Epithelial Cell,Urine 19 /hpf (0-4); WBC,Urine >182 /hpf (0-5)
--- NOTE | 2024-08-19 17:47 | CT ---
EXAMINATION TYPE: CT abdomen pelvis w con DATE OF EXAM: 08/19/2024 5:22 PM COMPARISON: 09/09/2023. CLINICAL INDICATION: Female, 84 years old with history of right abdominal pain. Hematemesis; ABD PAIN TECHNIQUE: Axial CT abdomen pelvis w con;Sagittal and coronal reformats were created on a separate w orkstation. Contrast used:100ML mL of Isovue 300 with IV Contrast, (none if empty) Oral contrast used: without Oral Contrast (none if empty) CT DLP: 1171.7 mGycm, Automated exposure control for dose reduction was used. FINDINGS: LOWER CHEST: Atherosclerosis of the coronary arteries and aortic valve. ABDOMEN LIVER: Unremarkable GALLBLADDER AND BILE DUCTS: Distended gallbladder nonobstructing calculi visualized. PANCREAS: Unremarkable. SPLEEN: Unremarkable. ADRENAL GLANDS: Unremarkable. KIDNEYS AND URETERS: No evidence of hydronephrosis or renal calculus. The ureters are unremarkable. PELVIS BLADDER: No evidence for wall thickening or mass given limitations of exam. REPRODUCTIVE: The uterus is surgically absent. ABDOMEN & PELVIS STOMACH AND BOWEL: No evidence of bowel obstruction. Scattered colonic diverticula. PERITONEUM/RETROPERITONEUM: No evidence of pneumoperitoneum or free fluid. VASCULATURE: No evidence of aortic aneurysm. MUSCULOSKELETAL: No acute osseous abnormalities, severe degeneration changes with scoliosis apex L2-L 3 with rightward shift of the pelvis. No evidence for fracture. Degeneration changes spine with osteo phyte formation and joint space narrowing. LYMPH NODES: No gross evidence for lymphadenopathy. SOFT TISSUE/ABDOMINAL WALL: Fat-containing umbilical and ventral wall hernia more superiorly. Nerve s timulator leads project and terminating in the posterior thecal sac. IMPRESSION: 1. No evidence for acute process. 2. Colonic diverticulosis. 3. Fat-containing ventral wall and umbilical hernias. 4. Mild cardiomegaly. 5. Mild coronary artery atherosclerosis. [facility], , 08/19/2024 5:44 PM
[2024-08-19] MEDS: LEVOFLOXACIN 500 MG TAB PO STA ×2 (18:21→19:29)
[2024-08-19] MEDS: DOXYCYCLINE 100 MG CAP PO STA (21:04)
[2024-08-19] MEDS ORDERED: NALOXONE 0.4 MG/ML 1 ML VIAL IV PRN (22:15)
[2024-08-19] MEDS ORDERED: HYDROcodone/APAP 5-325MG 1 EACH TAB PO PRN (22:15)
[2024-08-19] MEDS: SODIUM CHLORIDE 0.9% 1,000 ML IV SCH (22:49)
[2024-08-19] MEDS: ERTAPENEM 1 GM in SODIUM CHLORIDE 0.9% 50 ML IVPB STA (22:50)
[2024-08-19] MEDS: ONDANSETRON 4 MG/2 ML VIAL IVP PRN (23:16)
[2024-08-20] MEDS: MORPHINE SULFATE 4 MG/ML SYRINGE IV PRN (03:02)
[2024-08-20 06:36] LABS: Glucose,Whole Blood 118 mg/dL (70-110)
[2024-08-20 07:59] LABS: Glucose,Whole Blood 117 mg/dL (70-110)
[2024-08-20] MEDS: POTASSIUM CHLORIDE ER 10 MEQ TAB.ER.PRT PO SCH (08:47)
[2024-08-20] MEDS: LACTOBACILLUS ACIDOPHILUS/PECT 1 EACH CAPSULE PO SCH (08:48)
[2024-08-20] MEDS: hydroCHLOROthiazide 25 MG TAB PO SCH (08:48)
[2024-08-20] MEDS: PREGABALIN 100 MG CAP PO SCH (08:48)
[2024-08-20] MEDS: HYDROcodone/APAP 7.5-325MG 1 EACH TAB PO SCH (08:48)
[2024-08-20] MEDS: MULTIVITAMINS, THERA 1 EACH TAB PO SCH (08:48)
[2024-08-20] MEDS: CHOLECALCIFEROL 25 MCG (1000 IU) TABLET PO SCH (08:48)
[2024-08-20] MEDS: FAMOTIDINE 20 MG TAB PO SCH (08:48)
[2024-08-20] MEDS: DULoxetine HCL 60 MG CAPSULE.DR PO SCH (08:48)
[2024-08-20] MEDS: EZETIMIBE 10 MG TAB PO SCH (08:48)
[2024-08-20] MEDS: APIXABAN 5 MG TAB PO SCH (08:48)
[2024-08-20] MEDS: LOSARTAN 50 MG TAB PO SCH (08:49)
[2024-08-20] MEDS: INSULIN ASPART (NovoLOG) 100 UNIT/ML VIAL SQ SCH (08:49)
[2024-08-20] MEDS: CHOLESTYRAMINE (WITH SUGAR) 4 GM PACKET PO SCH (08:49)
[2024-08-20] MEDS: allopurinoL 100 MG TAB PO SCH (08:49)
[2024-08-20] MEDS: ERTAPENEM 1 GM in SODIUM CHLORIDE 0.9% 50 ML IVPB SCH (08:50)
[2024-08-20] MEDS: NON FORMULARY DRUG (Semaglutide [Ozempic] 1 MG/0.75 ML Each) SQ SCH (08:50)
[2024-08-20 08:58] LABS: ALT 13 U/L (8-44); AST 20 U/L (13-35); Albumin 3.9 g/dL (3.8-4.9); Albumin/Globulin Ratio 1.77 Ratio (1.60-3.17); Alkaline Phosphatase 55 U/L (41-126); Blood Urea Nitrogen 12.8 mg/dL (9.0-27.0); Calcium 9.1 mg/dL (8.7-10.3); Carbon Dioxide 20.8 mmol/L (21.6-31.8); Chloride 104 mmol/L (96-109); Globulin 2.2 g/dL (1.6-3.3); Glucose 131 mg/dL (70-110); Potassium 3.8 mmol/L (3.5-5.5); Sodium 141 mmol/L (135-145); Total Bilirubin 0.3 mg/dL (0.3-1.2); Total Protein 6.1 g/dL (6.2-8.2)
[2024-08-20] MEDS ORDERED: NON FORMULARY DRUG (Ubidecarenone [Coenzyme Q10] 200 MG Capsule) PO SCH (09:00)
[2024-08-20] MEDS ORDERED: AZO D MANNOSE PO SCH (09:00)
[2024-08-20] MEDS ORDERED: DAPAGLIFLOZIN PROPANEDIOL 10 MG TABLET PO SCH (09:00)
[2024-08-20] MEDS ORDERED: NON FORMULARY DRUG (Vitamin B Complex [Vitamin B Complex] 1 EACH Capsule) PO SCH (09:00)
[2024-08-20 09:17] LABS: Basophils # (A) 0.03 X 10*3/uL (0.00-0.10); Basophils % (A) 0.3 %; Eosinophils # (A) 0.14 X 10*3/uL (0.04-0.35); Eosinophils % (A) 1.6 %; HCT 41.2 % (37.2-46.3); Lymphocytes # (A) 0.96 X 10*3/uL (0.90-5.00); Lymphocytes % (A) 10.8 %; MCH 26.7 pg (27.0-32.0); MCHC 31.6 g/dL (32.0-37.0); MCV 84.6 FL (80.0-97.0); Mean Platelet Volume 11.4 FL (9.5-12.2); Monocytes # (A) 0.93 X 10*3/uL (0.20-1.00); Monocytes % (A) 10.5 %; NRBC Per 100 WBC 0 X 10*3/uL (0.00-0.01); Neutrophils # (A) 6.78 X 10*3/uL (1.80-7.70); Neutrophils % (A) 76.6 %; Platelet Count 220 X 10*3/uL (140-440); RBC 4.87 X 10*6/uL (4.10-5.20); RDW 16.3 % (11.5-14.5); WBC 8.86 X 10*3/uL (4.50-10.00)
[2024-08-20] MEDS: VERAPAMIL 40 MG TAB PO SCH (09:30)
[2024-08-20] MEDS: VERAPAMIL 80 MG TAB PO SCH (09:30)
[2024-08-20 12:43] LABS: Glucose,Whole Blood 96 mg/dL (70-110)
--- NOTE | 2024-08-20 15:34 | P.HPIM ---
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 Ahbi ledesma was brought into the emergency department at [facility] yesterday with increased abdominal pain, apparently the patient was recently hospitalized about a month ago at [facility] with recurrent ESBL multidrug-resistant UTI and at that time she did receive a midline and did receive Invanz 1 g piggyback every 24 hours, she apparently saw Dr. Perales on Friday and she was doing okay, I saw the patient on Friday prior to that and she was complaining of increased abdominal pain, she was supposed to go for a CT scan of the abdomen pelvis as well as had laboratory evaluation that showed minimal prerenal azotemia patient was advised to increase oral fluid intake, patient underwent a CT scan of the abdomen pelvis in the ER did not show evidence of acute abnormalities, did show diverticulosis, with fat-containing abdominal wall and umbilical hernia without acute abnormalities mild cardiomegaly with mild coronary calcification as well, because of the presentation the patient was admitted to the hospital she has significant UTI with SIRS, therefore she was admitted to the hospital she was started back on Invanz, discontinue Farxiga at this point in time for recurrent UTI infectious disease consultation from Dr. Perales. REVIEW OF SYSTEMS Constitutional: No fever, no chills, no night sweats. No weight change. positive for weakness, fatigue or lethargy. No daytime sleepiness. HEENT: No headache. No blurred vision or double vision, no loss of vision. Chronic loss of Hearing, no ringing in the ears, no dizziness. No nasal drainage or congestion. No epistaxis. No sore throat. Lungs: No shortness of breath, cough, no sputum production. No wheezing. Cardiovascular: No chest pain, no lower extremity edema. No palpitations. No paroxysmal nocturnal dyspnea. No orthopnea. No lightheadedness or dizziness. No syncopal episodes. Abdominal: Positive for abdominal pain. No nausea, vomiting. No diarrhea. No constipation. No bloody or tarry stools. No loss of appetite. Genitourinary: positive for dysuria, positive for frequency, urgency. No urinary retention. Musculoskeletal: No myalgias. Noted muscle weakness, noted gait dysfunction, fall at home. No back pain. No neck pain. Right knee discomfort Integumentary: . No rash or pruritus. No unusual bruising. No change in hair or nails. Neurologic: No aphasia. No facial droop. No change in mentation. No head injury. No headache. No paralysis. No paresthesia. Psychiatric: Mild depression. No anxiety. No mood swings.no mental status changes Endocrine: No abnormal blood sugars. No weight change. No excessive sweating or thirst. No cold intolerance. 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 SURGICAL HISTORY Cataract surgery left 20/20 Tonsillectomy and adenoidectomy Laminectomy with fusion of L1-S1 Lumbar discitis post-hardware removal SI joint fusion 2 Spinal cord stimulator Seroma on the back post-wound VAC line colonoscopy with polyps 2018. SOCIAL HISTORY Patient is a lifelong nonsmoker, no alcohol abuse, no illicit drug use. FAMILY HISTORY Father at age 80. Mother at the age of 86 from myocardial infarction had history of hypertension, hyperlipidemia. Patient has one brother with no major medical problems and one sister with no major medical problems. Patient has 3 daughters with no major medical problems. PHYSICAL EXAMINATION Gen: This is an 84-year-old obese female no distress. HEENT: Head is atraumatic, normocephalic. Pupils equal, round. Sclerae is anicteric. NECK: Supple. No JVD. No lymphadenopathy. No thyromegaly. LUNGS: Clear to auscultation. No wheezes or rhonchi. No intercostal retr actions. HEART: First heart sound is depressed, second heart sound is normal, 2/6 systolic ejection murmur at the left sternal border. ABDOMEN: Soft, mild tenderness to the epigastric area, no rebound or guarding positive bowel sounds EXTREMITIES: +1 pedal edema. No calf tenderness, DP+2 bilaterally. NEUROLOGICAL: Patient is awake, alert and oriented to person and place, CN II- XII are grossly intact muscle power 4/5 in bilateral upper and lower extremities. ASSESSMENT AND PLAN 1. Current to UTI with multidrug-resistant organism last 1 month ESBL E. coli. I will start the patient on Invanz 1 g piggyback every 24 hours, infectious disease consultation, blood cultures, urine culture, discontinue Farxiga 2. Paroxysmal Atrial fibrillation. Continue Eliquis 5 mg orally twice every d ay. Continue verapamil 120 mg daily. 3. Hypertension and hypertensive cardiovascular disease. Continue patient on hydrochlorothiazide 25 mg daily, losartan 100 mg daily, and verapamil [address] Monitor the patient blood pressure very closely. 5. Hyperlipidemia. we will continue Zetia 10 mg po daily patient is not able to tolerate statin at this point in time. She can be offered Repatha as an outpatient. 6. Diabetes mellitus type 2. Continue patient on add NovoLog scale before me als and at bedtime, we will discontinue Farxiga we will continue with Ozempic 1 mg subcutaneously every week, start the patient on sliding scale insulin. 7. Diabetic polyneuropathy. Continue Duloxetin 60 mg po daily continue pregabalin 200 mg orally twice every day 8. 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 Continue pregabalin 200 mg orally twice every day. Continue patient on current pain management as well. 9. Idiopathic gout. Continue allopurinol 100 mg daily. 10. Obstructive sleep apnea. Continue CPAP. 11. GI prophylaxis and gastroesophageal reflux disease. Continue Protonix 40 mg po daily 12. DVT prophylaxis. Continue Eliquis 5 mg orally twice every day. 14. Diabetic polyneuropathy. Continue pregabalin 200 mg orally twice every day. 15. Admit to inpatient. Estimated length of stay 2 midnights 16. Full code. Past Medical History Past Medical History: Atrial Fibrillation, CVA/TIA, Diabetes Mellitus, Fi bromyalgia, GERD/Reflux, Hypertension, Pneumonia, Pulmonary Embolus (PE), Rheumatoid Arthritis (RA) Additional Past Medical History / Comment(s): recurrent UTIs, cataracts, recent TIA, hx. of PE. History of Any Multi-Drug Resistant Organisms: None Reported Date of last positivie culture/infection: 07/20/24 MDRO Source:: urine Past Surgical History: Back Surgery, Hysterectomy, Joint Replacement, Orthopedic Surgery Additional Past Surgical History / Comment(s): 5 back surgery since 2014, total hysterectomy,R knee replacement Past Anesthesia/Blood Transfusion Reactions: No Reported Reaction Past Psychological History: No Psychological Hx Reported Smoking Status: Never smoker Past Alcohol Use History: Rare Past Drug Use History: None Reported - Past Family History Mother Family Medical History: CVA/TIA, Hyperlipidemia, Hypertension, Myocardial Infarction ([place]) Medications and Allergies Home Medications Medication Instructions Recorded Confirmed Type allopurinoL [Zyloprim] 100 mg PO DAILY 09/21/20 08/19/24 History Cholecalciferol [Vitamin D3 (25 25 mcg PO DAILY 11/04/22 08/19/24 History Mcg = 1000 Iu)] Losartan Potassium [Cozaar] 100 mg PO DAILY 11/04/22 08/19/24 History Vitamin B Complex 1 cap PO DAILY 11/04/22 08/19/24 History Apixaban [Eliquis] 5 mg PO BID #60 tab 11/13/22 08/19/24 Rx DULoxetine HCL [Cymbalta] 60 mg PO DAILY 01/03/23 08/19/24 History Multivit-Min/Iron/Folic/Lutein 1 tab PO DAILY 01/03/23 08/19/24 History [Centrum Silver Women Tablet] Ezetimibe [Zetia] 10 mg PO DAILY 07/17/23 08/19/24 History Furosemide [Lasix] 20 mg PO DAILY PRN 07/17/23 08/19/24 History Acetaminophen Tab [Tylenol] 650 mg PO Q6H PRN 09/12/23 08/19/24 History Azo D-Mannose 500mg 2,000 mg PO DAILY 09/12/23 08/19/24 History L.acidoph,Paracasei, B.lactis 1 cap PO DAILY 09/12/23 08/19/24 History [Probiotic] Melatonin 10 mg PO HS PRN 09/12/23 08/19/24 History Potassium Chloride [Klor-Con M10] 10 meq PO DAILY PRN 09/12/23 08/19/24 History Ubidecarenone [Coenzyme Q10] 200 mg PO DAILY 09/12/23 08/19/24 History hydroCHLOROthiazide [Hydrodiuril] 25 mg PO DAILY 09/12/23 08/19/24 History Cyclobenzaprine [Flexeril] 10 mg PO TID PRN 30 Days #90 tab 06/07/24 08/19/24 Rx DULoxetine HCL [Cymbalta] 30 mg PO HS 06/22/24 08/19/24 History Semaglutide [Ozempic] 1 mg SQ TH 07/21/24 08/19/24 History Verapamil HCl [Calan] 120 mg PO DAILY 07/21/24 08/19/24 History Pregabalin [Lyrica] 200 mg PO BID #6 cap 07/26/24 08/19/24 Rx Triamcinolone 0.1% Paste [Oralone 1 applic MUCOUS MEM PC-BID 4 Days 07/26/24 08/19/24 Rx 0.1% Paste] each Cholestyramine (with Sugar) 4 gm PO DAILY #0 packet 07/27/24 08/19/24 Rx [Questran] Dapagliflozin Propanediol [Farxiga] 10 mg PO DAILY 08/19/24 08/19/24 History HYDROcodone/APAP 7.5-325MG [[place] 1 tab PO TID 08/19/24 08/19/24 History 7.5-325] Allergies Allergy/AdvReac Type Severity Reaction Status Date / Time cephalexin [From Keflex] Allergy Rash/Hives Verified 08/19/24 20:22 clindamycin Allergy Rash/Hives Verified 08/19/24 20:22 Penicillins Allergy Unknown Verified 08/19/24 20:22 oxybutynin [From Ditropan] AdvReac Hallucinati Verified 08/19/24 20:22 ons Physical Exam Vitals: Vital Signs Temp Pulse Resp BP Pulse Ox 08/19/24 22:13 89 20 135/85 95 08/19/24 19:48 96 18 133/81 96 08/19/24 16:16 98.1 F 88 18 131/76 97 08/19/24 13:16 98.2 F 98 20 136/85 96 Intake and Output 08/19/24 08/19/24 08/20/24 14:59 22:59 06:59 Other: Weight 78.018 kg Results CBC & Chem 7: 08/20/24 06:14 08/20/24 06:14 Labs: Abnormal Lab Results - Last 24 Hours (Table) 08/19/24 08/19/24 08/19/24 Range/Units 16:14 16:14 16:53 RDW 15.9 H (11.5-15.5) % Lymphocytes # 0.8 L (1.0-4.8) k/uL BUN 18 H (7-17) mg/dL Glucose 112 H (74-99) mg/dL C-Reactive Protein 2.1 H (<1.0) mg/dL Urine Appearance Cloudy H (Clear) Urine Protein 1+ H (Negative) Urine Glucose (UA) Trace H (Negative) Urine Ketones 2+ H (Negative) Urine Blood Large H (Negative) Urine Nitrite Positive H (Negative) Ur Leukocyte Esterase Large H (Negative) Urine RBC >182 H (0-5) /hpf Urine WBC >182 H (0-5) /hpf Urine WBC Clumps Few H (None) /hpf Ur Squamous Epith Cells 19 H (0-4) /hpf Urine Bacteria Many H (None) /hpf Urine Mucus Many H (None) /hpf Urine Yeast (Budding) Few H (None) /hpf
[2024-08-20 17:17] LABS: Glucose,Whole Blood 119 mg/dL (70-110)
[2024-08-20 20:45] LABS: Glucose,Whole Blood 123 mg/dL (70-110)
[2024-08-20] MEDS: DULoxetine HCL 30 MG CAPSULE.DR PO SCH (20:51)
--- NOTE | 2024-08-20 23:13 | P.CONS ---
History of Present Illness - Reason for Consult Consult date: 08/20/24 Patient Known/UTI Requesting physician: Ifeanyi Archuleta - Chief Complaint Abdominal pain x 4 days - History of Present Illness Patient is a 84-year-old female with a past medical history significant for diabetes mellitus hypertension hyperlipidemia PE reflux atrial fibrillation history of recurrent UTI patient presenting to the hospital for evaluation of right-sided abdominal pain patient symptom has been going on for about 4 to 5 days before presentation to the hospital patient was complaining of initially pain mostly right lower quadrant subsequently has been pointing more towards the epigastric area patient described the pain to be colicky at times sharp and moderate intense without radiation he did have some nausea but no vomiting denies having any diarrhea or constipation has been complaining of some burning of urine but no hematuria or flank pain on presentation to the hospital patient was afebrile and no fever have been recorded subsequently patient was not tachycardic hypotensive or hypoxic patient did have white count of 8.86 creatinine 0.8 electrolytes normal liver enzymes normal urine has been positive patient has been started on ertapenem with recent urine culture positive for drug-resistant pathogen infectious disease was consulted for further management of antibiotic therapy Review of Systems Positive point and negatives has been mentioned in the HPI, complete review of systems was performed and all other systems are negative Past Medical History Past Medical History: Atrial Fibrillation, CVA/TIA, Diabetes Mellitus, Fibromyalgia, GERD/Reflux, Hypertension, Pneumonia, Pulmonary Embolus (PE), Rheumatoid Arthritis (RA) Additional Past Medical History / Comment(s): recurrent UTIs, cataracts, recent TIA, hx. of PE. History of Any Multi-Drug Resistant Organisms: None Reported Year Discovered:: 07/20/24 MDRO Source:: urine Past Surgical History: Back Surgery, Hysterectomy, Joint Replacement, Orthopedic Surgery Additional Past Surgical History / Comment(s): 5 back surgery since 2014, total hysterectomy,R knee replacement Past Anesthesia/Blood Transfusion Reactions: No Reported Reaction Past Psychological History: No Psychological Hx Reported Smoking Status: Never smoker Past Alcohol Use History: Rare Past Drug Use History: None Reported - Past Family History Mother Family Medical History: CVA/TIA, Hyperlipidemia, Hypertension, Myocardial Infarction ([place]) Medications and Allergies Home Medications Medication Instructions Recorded Confirmed Type allopurinoL [Zyloprim] 100 mg PO DAILY 09/21/20 08/19/24 History Cholecalciferol [Vitamin D3 (25 25 mcg PO DAILY 11/04/22 08/19/24 History Mcg = 1000 Iu)] Losartan Potassium [Cozaar] 100 mg PO DAILY 11/04/22 08/19/24 History Vitamin B Complex 1 cap PO DAILY 11/04/22 08/19/24 History Apixaban [Eliquis] 5 mg PO BID #60 tab 11/13/22 08/19/24 Rx DULoxetine HCL [Cymbalta] 60 mg PO DAILY 01/03/23 08/19/24 History Multivit-Min/Iron/Folic/Lutein 1 tab PO DAILY 01/03/23 08/19/24 History [Centrum Silver Women Tablet] Ezetimibe [Zetia] 10 mg PO DAILY 07/17/23 08/19/24 History Furosemide [Lasix] 20 mg PO DAILY PRN 07/17/23 08/19/24 History Acetaminophen Tab [Tylenol] 650 mg PO Q6H PRN 09/12/23 08/19/24 History Azo D-Mannose 500mg 2,000 mg PO DAILY 09/12/23 08/19/24 History L.acidoph,Paracasei, B.lactis 1 cap PO DAILY 09/12/23 08/19/24 History [Probiotic] Melatonin 10 mg PO HS PRN 09/12/23 08/19/24 History Potassium Chloride [Klor-Con M10] 10 meq PO DAILY PRN 09/12/23 08/19/24 History Ubidecarenone [Coenzyme Q10] 200 mg PO DAILY 09/12/23 08/19/24 History hydroCHLOROthiazide [Hydrodiuril] 25 mg PO DAILY 09/12/23 08/19/24 History Cyclobenzaprine [Flexeril] 10 mg PO TID PRN 30 Days #90 tab 06/07/24 08/19/24 Rx DULoxetine HCL [Cymbalta] 30 mg PO HS 06/22/24 08/19/24 History Semaglutide [Ozempic] 1 mg SQ TH 07/21/24 08/19/24 History Verapamil HCl [Calan] 120 mg PO DAILY 07/21/24 08/19/24 History Pregabalin [Lyrica] 200 mg PO BID #6 cap 07/26/24 08/19/24 Rx Triamcinolone 0.1% Paste [Oralone 1 applic MUCOUS MEM PC-BID 4 Days 12/16/24 01/09/25 Rx 0.1% Paste] each Cholestyramine (with Sugar) 4 gm PO DAILY #0 packet 07/27/24 08/19/24 Rx [Questran] Dapagliflozin Propanediol [Farxiga] 10 mg PO DAILY 08/19/24 08/19/24 History HYDROcodone/APAP 7.5-325MG [[place] 1 tab PO TID 08/19/24 08/19/24 History 7.5-325] Allergies Allergy/AdvReac Type Severity Reaction Status Date / Time cephalexin [From Keflex] Allergy Rash/Hives Verified 08/19/24 20:22 clindamycin Allergy Rash/Hives Verified 08/19/24 20:22 Penicillins Allergy Unknown Verified 08/19/24 20:22 oxybutynin [From Ditropan] AdvReac Hallucinati Verified 08/19/24 20:22 ons Physical Exam Vitals: Vital Signs Temp Pulse Pulse Resp BP BP Pulse Ox 08/20/24 08:04 97.7 F 95 18 147/84 97 08/20/24 06:03 98.3 F 109 H 18 156/100 97 08/20/24 02:46 105 H 18 138/87 96 08/19/24 22:13 89 20 135/85 95 08/19/24 19:48 96 18 133/81 96 08/19/24 16:16 98.1 F 88 18 131/76 97 08/19/24 13:16 98.2 F 98 20 136/85 96 Intake and Output 08/19/24 08/20/24 08/20/24 22:59 06:59 14:59 Other: # Voids 1 Weight 78.018 kg GENERAL DESCRIPTION: Elderly female lying in bed, no distress. No tachypnea or accessory muscle of respiration use. HEENT: Shows Pallor , no scleral icterus. Oral mucous membrane is dry. No pharyngeal erythema or thrush NECK: Trachea central, no thyromegaly. LUNGS: Unlabored breathing. Clear to auscultation anteriorly. No wheeze or crackle. HEART: S1, S2, regular rate and rhythm. No loud murmur ABDOMEN: Soft, no tenderness did have evidence of periumbilical hernia EXTREMITIES: No edema of feet. SKIN: No rash, no masses palpable. NEUROLOGICAL: The patient is awake, alert, oriented x3, mood and affect normal. Results CBC & Chem 7: 08/20/24 06:14 08/20/24 06:14 Labs: Abnormal Lab Results - Last 24 Hours (Table) 08/19/24 08/19/24 08/19/24 Range/Units 16:14 16:14 16:53 MCH (27.0-32.0) pg MCHC (32.0-37.0) g/dL RDW 15.9 H (11.5-15.5) % Lymphocytes # 0.8 L (1.0-4.8) k/uL Carbon Dioxide (21.6-31.8) mmol/L Anion Gap (4.00-12.00) mmol/L BUN 18 H (7-17) mg/dL Glucose 112 H (74-99) mg/dL POC Glucose (mg/dL) (70-110) mg/dL C-Reactive Protein 2.1 H (<1.0) mg/dL Total Protein (6.2-8.2) g/dL Urine Appearance Cloudy H (Clear) Urine Protein 1+ H (Negative) Urine Glucose (UA) Trace H (Negative) Urine Ketones 2+ H (Negative) Urine Blood Large H (Negative) Urine Nitrite Positive H (Negative) Ur Leukocyte Esterase Large H (Negative) Urine RBC >182 H (0-5) /hpf Urine WBC >182 H (0-5) /hpf Urine WBC Clumps Few H (None) /hpf Ur Squamous Epith Cells 19 H (0-4) /hpf Urine Bacteria Many H (None) /hpf Urine Mucus Many H (None) /hpf Urine Yeast (Budding) Few H (None) /hpf 08/20/24 08/20/24 08/20/24 Range/Units 06:14 06:14 06:34 MCH 26.7 L (27.0-32.0) pg MCHC 31.6 L (32.0-37.0) g/dL RDW 16.3 H (11.5-15.5) % Lymphocytes # (1.0-4.8) k/uL Carbon Dioxide 20.8 L (21.6-31.8) mmol/L Anion Gap 16.20 H (4.00-12.00) mmol/L BUN (7-17) mg/dL Glucose 131 H (74-99) mg/dL POC Glucose (mg/dL) 118 H (70-110) mg/dL C-Reactive Protein (<1.0) mg/dL Total Protein 6.1 L (6.2-8.2) g/dL Urine Appearance (Clear) Urine Protein (Negative) Urine Glucose (UA) (Negative) Urine Ketones (Negative) Urine Blood (Negative) Urine Nitrite (Negative) Ur Leukocyte Esterase (Negative) Urine RBC (0-5) /hpf Urine WBC (0-5) /hpf Urine WBC Clumps (None) /hpf Ur Squamous Epith Cells (0-4) /hpf Urine Bacteria (None) /hpf Urine Mucus (None) /hpf Urine Yeast (Budding) (None) /hpf 08/20/24 Range/Units 07:54 MCH (27.0-32.0) pg MCHC (32.0-37.0) g/dL RDW (11.5-15.5) % Lymphocytes # (1.0-4.8) k/uL Carbon Dioxide (21.6-31.8) mmol/L Anion Gap (4.00-12.00) mmol/L BUN (7-17) mg/dL Glucose (74-99) mg/dL POC Glucose (mg/dL) 117 H (70-110) mg/dL C-Reactive Protein (<1.0) mg/dL Total Protein (6.2-8.2) g/dL Urine Appearance (Clear) Urine Protein (Negative) Urine Glucose (UA) (Negative) Urine Ketones (Negative) Urine Blood (Negative) Urine Nitrite (Negative) Ur Leukocyte Esterase (Negative) Urine RBC (0-5) /hpf Urine WBC (0-5) /hpf Urine WBC Clumps (None) /hpf Ur Squamous Epith Cells (0-4) /hpf Urine Bacteria (None) /hpf Urine Mucus (None) /hpf Urine Yeast (Budding) (None) /hpf Assessment and Plan (1) Abdominal pain Current Visit: Yes Status: Acute Code(s): R10.9 - UNSPECIFIED ABDOMINAL PAIN SNOMED Code(s): 08008111 (2) Allergy to multiple antibiotics Current Visit: No Status: Acute Code(s): Z88.1 - ALLERGY STATUS TO OTHER ANTIBIOTIC AGENTS SNOMED Code(s): 395467832 (3) UTI (urinary tract infection) Current Visit: No Status: Acute Code(s): N39.0 - URINARY TRACT INFECTION, SITE NOT SPECIFIED SNOMED Code(s): 40298642 Plan: 1patient presented to hospital abdominal pain which she was described initially to the right lower quadrant but now mostly in the periumbilical/epigastric area has abated evidence of hernia could be related to that and the CT abdominal pelvis did not show any acute abnormality. 2patient did have positive UA with urinary burning concerning for cystitis not behaving as a deep infection such as pyelonephritis with no fever or elevated white count. 3patient with multiple antibiotic ALLERGIES that would limit the number of antibiotic safe to use. 4patient will be treated with Invanz 1 g daily while waiting for the culture to finalize we will follow on clinical condition and cultures to further adjust medication if needed Thank you for this consultation we will follow the patient along with you Dictation was produced using [employer] dictation software. please excuse any grammatical, word or spelling errors. Time with Patient: Greater than 30
[2024-08-21 07:45] LABS: Glucose,Whole Blood 101 mg/dL (70-110)
[2024-08-21] MEDS: polyethylene glycoL 3350 17 GM POWD.PACK PO SCH (10:54)
--- NOTE | 2024-08-21 11:17 | P.PN ---
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 Patient was brought into the emergency department at [facility] yesterday with increased abdominal pain, apparently the patient was recently hospitalized about a month ago at [facility] with recurrent ESBL multidrug-resistant UTI and at that time she did receive a midline and did receive Invanz 1 g piggyback every 24 hours, she apparently saw Dr. Perales on Friday and she was doing okay, I saw the patient on Friday prior to that and she was complaining of increased abdominal pain, she was supposed to go for a CT scan of the abdomen pelvis as well as had laboratory evaluation that showed minimal prerenal azotemia patient was advised to increase oral fluid intake, patient underwent a CT scan of the abdomen pelvis in the ER did not show evidence of acute abnormalities, did show diverticulosis, with fat-containing abdominal wall and umbilical hernia without acute abnormalities mild cardiomegaly with mild coronary calcification as well, because of the presentation the patient was admitted to the hospital she has significant UTI with SIRS, therefore she was admitted to the hospital she was started back on Invanz, discontinue Farxiga at this point in time for recurrent UTI infectious disease consultation from Dr. Perales. 08/21: Patient is laying down in bed in no apparent distress, she denies any chest pain, shortness of breath, she continues to have abdominal pain in the lower abdomen, she has not had a bowel movement, patient will be given MiraLAX 17 g in 8 ounce of water along with a stool softener regularly, may be adding lactulose 20 g orally twice every day as needed, follow-up with the patient very closely, await the final result of the urine culture, last urine culture showed evidence of ESBL multidrug-resistant organism in the form of E. coli that she had received 10-day course of Invanz through her midline, currently on Invanz infectious ease consultation appreciated, physical therapy evaluation, social insurance analyst consultation for discharge planning. REVIEW OF SYSTEMS Constitutional: No fever, no chills, no night sweats. No weight change. positive for weakness, fatigue or lethargy. No daytime sleepiness. HEENT: No headache. No blurred vision or double vision, no loss of vision. Chronic loss of Hearing, no ringing in the ears, no dizziness. No nasal drainage or congestion. No epistaxis. No sore throat. Lungs: No shortness of breath, cough, no sputum production. No wheezing. Cardiovascular: No chest pain, no lower extremity edema. No palpitations. No paroxysmal nocturnal dyspnea. No orthopnea. No lightheadedness or dizziness. No syncopal episodes. Abdominal: Positive for abdominal pain. No nausea, vomiting. No diarrhea. No constipation. No bloody or tarry stools. No loss of appetite. Genitourinary: positive for dysuria, positive for frequency, urgency. No urinary retention. Musculoskeletal: No myalgias. Noted muscle weakness, noted gait dysfunction, fall at home. No back pain. No neck pain. Right knee discomfort Integumentary: . No rash or pruritus. No unusual bruising. No change in hair or nails. Neurologic: No aphasia. No facial droop. No change in mentation. No head injury. No headache. No paralysis. No paresthesia. Psychiatric: Mild depression. No anxiety. No mood swings.no mental status changes Endocrine: No abnormal blood sugars. No weight change. No excessive sweating or thirst. No cold intolerance. PHYSICAL EXAMINATION Gen: This is an 84-year-old obese female no distress. HEENT: Head is atraumatic, normocephalic. Pupils equal, round. Sclerae is anicteric. NECK: Supple. No JVD. No lymphadenopathy. No thyromegaly. LUNGS: Clear to auscultation. No wheezes or rhonchi. No intercostal retractions. HEART: First heart sound is depressed, second heart sound is normal, 2/6 systolic ejection murmur at the left sternal border. ABDOMEN: Soft, mild tenderness to the epigastric area, no rebound or guarding positive bowel sounds EXTREMITIES: +1 pedal edema. No calf tenderness, DP+2 bilaterally. NEUROLOGICAL: Patient is awake, alert and oriented to person and place, CN II- XII are grossly intact muscle power 4/5 in bilateral upper and lower extremities. ASSESSMENT AND PLAN 1. Current to UTI with multidrug-resistant organism last 1 month ESBL E. coli. continue on Invanz 1 g piggyback every 24 hours, monitor the patient symptoms very closely. 2. Paroxysmal Atrial fibrillation. Continue Eliquis 5 mg orally twice every day. Continue verapamil 120 mg daily. 3. Hypertension and hypertensive cardiovascular disease. Continue patient on hydrochlorothiazide 25 mg daily, losartan 100 mg daily, and verapamil 120 mg daily. Monitor the patient blood pressure very closely. 5. Hyperlipidemia. we will continue Zetia 10 mg po daily patient is not able to tolerate statin at this point in time. She can be offered Repatha as an o utpatient. 6. Diabetes mellitus type 2. Continue patient on add NovoLog scale before meals and at bedtime, we will continue off Farxiga we will continue with Ozempic 1 mg subcutaneously every weekalong with a sliding scale insulin 7. Diabetic polyneuropathy. Continue Duloxetin 60 mg po daily continue pregabalin 200 mg orally twice every day 8. 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 Continue pregabalin 200 mg orally twice every day. Continue patient on current pain management as well. 9. Idiopathic gout. Continue allopurinol 100 mg daily. 10. Obstructive sleep apnea. Continue CPAP. 11. GI prophylaxis and gastroesophageal reflux disease. Continue Protonix 40 mg po daily 12. DVT prophylaxis. Continue Eliquis 5 mg orally twice every day. 14. Diabetic polyneuropathy. Continue pregabalin 200 mg orally twice every day. 15. Physical therapy evaluation . 16. gas plant worker consultation for discharge planning. 17. Loose stool. Continue patient on Questran 4 g orally once every day. 18. Full code. Objective - Vital Signs Vital signs: Vital Signs Temp 98.5 F 08/21/24 07:28 Pulse 80 08/21/24 07:28 Resp 14 08/21/24 07:28 BP 104/66 08/21/24 07:28 Pulse Ox 92 L 08/21/24 07:28 FiO2 Intake & Output 08/20/24 08/21/24 08/21/24 18:59 06:59 18:59 Intake Total 840 480 Balance 840 480 Weight 78.018 kg Intake: Oral 840 480 Other: Voiding Method Toilet Toilet # Voids 2 2 - Labs CBC & Chem 7: 08/20/24 06:14 08/20/24 06:14 Labs: Abnormal Lab Results - Last 24 Hours (Table) 08/20/24 08/20/24 Range/Units 17:09 20:44 POC Glucose (mg/dL) 119 H 123 H (70-110) mg/dL Microbiology - Last 24 Hours (Table) 08/19/24 16:53 Urine Culture - Preliminary Urine,Clean Catch Gram Neg Bacilli 08/19/24 22:30 Blood Culture - Preliminary Blood
[2024-08-21 11:45] LABS: ALT 11 U/L (8-44); AST 18 U/L (13-35); Albumin 3.4 g/dL (3.8-4.9); Alkaline Phosphatase 47 U/L (41-126); BUN/Creat Ratio 13.38 Ratio (12.00-20.00); Blood Urea Nitrogen 10.7 mg/dL (9.0-27.0); Calcium 8.5 mg/dL (8.7-10.3); Chloride 105 mmol/L (96-109); Glucose 103 mg/dL (70-110); Potassium 4.2 mmol/L (3.5-5.5); Sodium 140 mmol/L (135-145); Total Bilirubin 0.3 mg/dL (0.3-1.2); Total Protein 5.4 g/dL (6.2-8.2)
[2024-08-21 12:04] LABS: Glucose,Whole Blood 93 mg/dL (70-110)
[2024-08-21 15:11] LABS: Basophils # (A) 0.03 X 10*3/uL (0.00-0.10); Basophils % (A) 0.4 %; Eosinophils # (A) 0.24 X 10*3/uL (0.04-0.35); Eosinophils % (A) 3.2 %; HCT 40.7 % (37.2-46.3); HGB 12.1 g/dL (12.0-15.0); Lymphocytes # (A) 0.85 X 10*3/uL (0.90-5.00); Lymphocytes % (A) 11.3 %; MCH 26.7 pg (27.0-32.0); MCHC 29.7 g/dL (32.0-37.0); MCV 89.8 FL (80.0-97.0); Mean Platelet Volume 11.2 FL (9.5-12.2); Monocytes # (A) 0.88 X 10*3/uL (0.20-1.00); Monocytes % (A) 11.7 %; NRBC Per 100 WBC 0 X 10*3/uL (0.00-0.01); Neutrophils # (A) 5.47 X 10*3/uL (1.80-7.70); Platelet Count 201 X 10*3/uL (140-440); RBC 4.53 X 10*6/uL (4.10-5.20); RDW 16.5 % (11.5-14.5)
--- NOTE | 2024-08-21 16:17 | P.PN ---
Subjective Progress Note Date: 08/21/24 Principal diagnosis: Reason for follow-up is a UTI Patient is a 84-year-old female with a past medical history significant for diabetes mellitus hypertension hyperlipidemia PE reflux atrial fibrillation history of recurrent UTI patient presenting to the hospital for ev aluation of right-sided abdominal pain did have CT abdominal pelvis did not show any acute abnormality did have a positive UA and urinary symptoms of burning concerning for UTI pulm this consultation. On today's evaluation that is 08/21/2024, patient did not have any fever and denies any chills, patient is breathing comfortably on room air, patient with no chest pain or cough patient still complaining of off-and-on abdominal pain no nausea vomiting or diarrhea. The patient white count 7.50, creatinine 0.8 urine is growing gram-negative Objective - Vital Signs Vital signs: Vital Signs Temp 97.4 F L 08/21/24 11:57 Pulse 83 08/21/24 11:57 Resp 16 08/21/24 11:57 BP 89/56 08/21/24 11:57 Pulse Ox 90 L 08/21/24 11:57 FiO2 Intake & Output 08/20/24 08/21/24 08/21/24 18:59 06:59 18:59 Intake Total 840 480 Balance 840 480 Weight 78.018 kg Intake: Oral 840 480 Other: Voiding Method Toilet Toilet Toilet # Voids 2 2 - Exam GENERAL DESCRIPTION: An elderly female up in the bed in no distress RESPIRATORY SYSTEM: Unlabored breathing , decreased breath sounds at bases HEART: S1 S2 regular rate and rhythm , ABDOMEN: Soft , no tenderness EXTREMITIES: No edema feet - Labs CBC & Chem 7: 08/21/24 06:02 08/21/24 06:02 Labs: Abnormal Lab Results - Last 24 Hours (Table) 08/20/24 08/20/24 08/21/24 Range/Units 17:09 20:44 06:02 POC Glucose (mg/dL) 119 H 123 H (70-110) mg/dL Calcium 8.5 L (8.7-10.3) mg/dL Total Protein 5.4 L (6.2-8.2) g/dL Albumin 3.4 L (3.8-4.9) g/dL Microbiology - Last 24 Hours (Table) 08/19/24 16:53 Urine Culture - Preliminary Urine,Clean Catch Gram Neg Bacilli 08/19/24 22:30 Blood Culture - Preliminary Blood Assessment and Plan (1) Abdominal pain Current Visit: Yes Status: Acute Code(s): R10.9 - UNSPECIFIED ABDOMINAL PAIN SNOMED Code(s): 74673830 (2) Allergy to multiple antibiotics Current Visit: No Status: Acute Code(s): Z88.1 - ALLERGY STATUS TO OTHER ANTIBIOTIC AGENTS SNOMED Code(s): 829338911 (3) UTI (urinary tract infection) Current Visit: No Status: Acute Code(s): N39.0 - URINARY TRACT INFECTION, SITE NOT SPECIFIED SNOMED Code(s): 84691188 Plan: 1patient presented to hospital abdominal pain which she was described initially to the right lower quadrant but now mostly in the periumbilical/epigastric area has abated evidence of hernia could be related to that and the CT abdominal pelvis did not show any acute abnormality. 2patient did have positive UA with urinary burning concerning for cystitis not behaving as a deep infection such as pyelonephritis with no fever or elevated white count. 3patient with multiple antibiotic ALLERGIES that would limit the number of antibiotic safe to use. 4patient urine is currently growing gram-negative with ID sensitive findings, continue with Invanz 1 g daily while waiting for the culture to finalize Dictation was produced using [employer] dictation software. please excuse any grammatical, word or spelling errors. Time with Patient: Less than 30
[2024-08-21 17:18] LABS: Glucose,Whole Blood 113 mg/dL (70-110)
[2024-08-21] MEDS: ZINC OXIDE PASTE (Z-GUARD) 1 APPLIC TOPICAL PRN (17:40)
[2024-08-21] MEDS: CHOLESTYRAMINE (WITH SUGAR) 4 GM PACKET PO SCH (18:28)
[2024-08-21 18:32] LABS: Basophils # (A) 0.1 k/uL (0-0.2); Basophils % (A) 1 %; Eosinophils # (A) 0.2 k/uL (0-0.7); Eosinophils % (A) 2 %; HCT 46.1 % (34.0-46.0); HGB 14.4 gm/dL (11.4-16.0); Hypochromasia Marked; Lymphocytes # (A) 1.3 k/uL (1.0-4.8); Lymphocytes % (A) 13 %; MCH 28.2 pg (25.0-35.0); MCHC 31.2 g/dL (31.0-37.0); Mean Platelet Volume 7.9; Monocytes # (A) 0.7 k/uL (0-1.0); Monocytes % (A) 7 %; Neutrophils # (A) 7.6 k/uL (1.3-7.7); Neutrophils % (A) 75 %; Platelet Count 206 k/uL (150-450); RDW 15.8 % (11.5-15.5); WBC 10.1 k/uL (3.8-10.6)
[2024-08-21 18:36] LABS: MCV 90.4 fL (80.0-100.0)
[2024-08-21 20:12] LABS: Glucose,Whole Blood 157 mg/dL (70-110)
[2024-08-21] MEDS ORDERED: SENNOSIDES-DOCUSATE SODIUM 1 EACH TAB PO SCH (21:00)
[2024-08-21] MEDS ORDERED: LACTULOSE 20 GM/30 ML CUP PO SCH (21:00)
[2024-08-21] MEDS: SODIUM CHLORIDE 0.45% 1,000 ML IV SCH (21:08)
[2024-08-22 07:40] LABS: Glucose,Whole Blood 102 mg/dL (70-110)
[2024-08-22] MEDS: SODIUM CHLORIDE 0.9% 1,000 ML IV SCH (08:40)
[2024-08-22 09:29] LABS: Basophils # (A) 0.02 X 10*3/uL (0.00-0.10); Basophils % (A) 0.3 %; Eosinophils # (A) 0.26 X 10*3/uL (0.04-0.35); Eosinophils % (A) 4.2 %; HCT 36.7 % (37.2-46.3); HGB 11.1 g/dL (12.0-15.0); Lymphocytes # (A) 0.95 X 10*3/uL (0.90-5.00); Lymphocytes % (A) 15.4 %; MCH 26.6 pg (27.0-32.0); MCHC 30.2 g/dL (32.0-37.0); Mean Platelet Volume 11.6 FL (9.5-12.2); Monocytes # (A) 0.83 X 10*3/uL (0.20-1.00); Monocytes % (A) 13.5 %; NRBC Per 100 WBC 0 X 10*3/uL (0.00-0.01); Neutrophils # (A) 4.08 X 10*3/uL (1.80-7.70); Neutrophils % (A) 66.3 %; Platelet Count 184 X 10*3/uL (140-440); RBC 4.17 X 10*6/uL (4.10-5.20); WBC 6.16 X 10*3/uL (4.50-10.00)
[2024-08-22 09:46] LABS: ALT 10 U/L (8-44); AST 14 U/L (13-35); Albumin 3.3 g/dL (3.8-4.9); Albumin/Globulin Ratio 1.74 Ratio (1.60-3.17); Alkaline Phosphatase 47 U/L (41-126); Blood Urea Nitrogen 13.1 mg/dL (9.0-27.0); Calcium 8.4 mg/dL (8.7-10.3); Carbon Dioxide 23.3 mmol/L (21.6-31.8); Chloride 107 mmol/L (96-109); Globulin 1.9 g/dL (1.6-3.3); Glucose 116 mg/dL (70-110); Potassium 4.7 mmol/L (3.5-5.5); Sodium 141 mmol/L (135-145); Total Bilirubin 0.2 mg/dL (0.3-1.2); Total Protein 5.2 g/dL (6.2-8.2)
[2024-08-22 12:27] LABS: Glucose,Whole Blood 95 mg/dL (70-110)
--- NOTE | 2024-08-22 13:09 | P.PN ---
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 Patient was brought into the emergency department at [facility] yesterday with increased abdominal pain, apparently the patient was recently hospitalized about a month ago at [facility] with recurrent ESBL multidrug-resistant UTI and at that time she did receive a midline and did receive Invanz 1 g piggyback every 24 hours, she apparently saw Dr. Perales on Friday and she was doing okay, I saw the patient on Friday prior to that and she was complaining of increased abdominal pain, she was supposed to go for a CT scan of the abdomen pelvis as well as had laboratory evaluation that showed minimal prerenal azotemia patient was advised to increase oral fluid intake, patient underwent a CT scan of the abdomen pelvis in the ER did not show evidence of acute abnormalities, did show diverticulosis, with fat-containing abdominal wall and umbilical hernia without acute abnormalities mild cardiomegaly with mild coronary calcification as well, because of the presentation the patient was admitted to the hospital she has significant UTI with SIRS, therefore she was admitted to the hospital she was started back on Invanz, discontinue Farxiga at this point in time for recurrent UTI infectious disease consultation from Dr. Perales. 08/21: Patient is laying down in bed in no apparent distress, she denies any chest pain, shortness of breath, she continues to have abdominal pain in the lower abdomen, she has not had a bowel movement, patient will be given MiraLAX 17 g in 8 ounce of water along with a stool softener regularly, may be adding lactulose 20 g orally twice every day as needed, follow-up with the patient very closely, await the final result of the urine culture, last urine culture showed evidence of ESBL multidrug-resistant organism in the form of E. coli that she had received 10-day course of Invanz through her midline, currently on Invanz infectious ease consultation appreciated, physical therapy evaluation, transition social worker consultation for discharge planning. 08/22 Patient she feels improved She has good appetite Her lower abdominal pain feels better No other new complaints. She remains on IV antibiotics She is on normal saline 75 mL/h which can be discontinued today Labs from today are reviewed and look stable Objective - Vital Signs Vital signs: Vital Signs Temp 97.4 F L 08/22/24 11:42 Pulse 80 08/22/24 11:42 Resp 14 08/22/24 11:42 BP 118/69 08/22/24 11:42 Pulse Ox 90 L 08/22/24 11:42 FiO2 Intake & Output 08/21/24 08/22/24 08/22/24 18:59 06:59 18:59 Intake Total 50 Output Total 450 Balance 50 -450 Intake: Intake, IV Titration 50 Amount Ertapenem 1 gm In Sodium 50 Chloride 0.9% 50 ml @ 100 mls/hr IVPB DAILY [facility] Rx #:[id number] Output: Urine 450 Other: Voiding Method Toilet Toilet Toilet # Voids 2 1 2 # Bowel Movements 2 2 - Exam GENERAL: The patient is alert and oriented x3, not in any acute distress. Well developed, well nourished. HEENT: Pupils are round and equally reacting to light. EOMI. No scleral icterus. No conjunctival pallor. Normocephalic, atraumatic. No pharyngeal erythema. No thyromegaly. CARDIOVASCULAR: S1 and S2 present. No murmurs, rubs, or gallops. PULMONARY: Chest is clear to auscultation, no wheezing , no crackles. ABDOMEN: Soft, nontender, nondistended, normoactive bowel sounds. No palpable organomegaly. MUSCULOSKELETAL: No joint swelling or deformity. EXTREMITIES: No cyanosis, clubbing, or pedal edema. NEUROLOGICAL: Gross neurological examination did not reveal any focal deficits. SKIN: No rashes. no petechiae. - Labs CBC & Chem 7: 08/22/24 05:10 08/22/24 05:10 Labs: Abnormal Lab Results - Last 24 Hours (Table) 08/21/24 08/21/24 08/21/24 Range/Units 06:02 17:17 18:12 Hgb (12.0-15.0) g/dL Hct 46.1 H (34.0-46.0) % MCH 26.7 L (27.0-32.0) pg MCHC 29.7 L (32.0-37.0) g/dL RDW 16.5 H 15.8 H (11.5-14.5) % Lymphocytes # 0.85 L (0.90-5.00) X 10*3/uL Est GFR (CKD-EPI) (>=60) Glucose (70-110) mg/dL POC Glucose (mg/dL) 113 H (70-110) mg/dL Calcium (8.7-10.3) mg/dL Total Bilirubin (0.3-1.2) mg/dL Total Protein (6.2-8.2) g/dL Albumin (3.8-4.9) g/dL 08/21/24 08/22/24 08/22/24 Range/Units 20:11 05:10 05:10 Hgb 11.1 L (12.0-15.0) g/dL Hct 36.7 L (34.0-46.0) % MCH 26.6 L (27.0-32.0) pg MCHC 30.2 L (32.0-37.0) g/dL RDW 16.0 H (11.5-14.5) % Lymphocytes # (0.90-5.00) X 10*3/uL Est GFR (CKD-EPI) 56 L (>=60) Glucose 116 H (70-110) mg/dL POC Glucose (mg/dL) 157 H (70-110) mg/dL Calcium 8.4 L (8.7-10.3) mg/dL Total Bilirubin 0.2 L (0.3-1.2) mg/dL Total Protein 5.2 L (6.2-8.2) g/dL Albumin 3.3 L (3.8-4.9) g/dL Microbiology - Last 24 Hours (Table) 08/19/24 16:53 Urine Culture - Final Urine,Clean Catch Escherichia coli 08/19/24 22:30 Blood Culture - Preliminary Blood Assessment and Plan Assessment: 1. Current to UTI with multidrug-resistant organism last 1 month ESBL E. coli. continue on Invanz 1 g piggyback every 24 hours, monitor the patient symptoms very closely. DC IV fluids 2. Paroxysmal Atrial fibrillation. Continue Eliquis 5 mg orally twice every day. Continue verapamil 120 mg daily. 3. Hypertension and hypertensive cardiovascular disease. Continue patient on hydrochlorothiazide 25 mg daily, losartan 100 mg daily, and verapamil 120 mg daily. Monitor the patient blood pressure very closely. 5. Hyperlipidemia. we will continue Zetia 10 mg po daily patient is not able to tolerate statin at this point in time. She can be offered Repatha as an outpatient. 6. Diabetes mellitus type 2. Continue patient on add NovoLog scale before meals and at bedtime, we will continue off Farxiga we will continue with Ozempic 1 mg subcutaneously every weekalong with a sliding scale insulin 7. Diabetic polyneuropathy. Continue Duloxetin 60 mg po daily continue pregabalin 200 mg orally twice every day 8. 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 Continue pregabalin 200 mg orally twice every day. Continue patient on current pain management as well. 9. Idiopathic gout. Continue allopurinol 100 mg daily. 10. Obstructive sleep apnea. Continue CPAP. 11. GI prophylaxis and gastroesophageal reflux disease. Continue Protonix 40 mg po daily 12. DVT prophylaxis. Continue Eliquis 5 mg orally twice every day. 14. Diabetic polyneuropathy. Continue pregabalin 200 mg orally twice every day. 15. Physical therapy evaluation . 16. church worker consultation for discharge planning. 17. Loose stool. Continue patient on Questran 4 g orally once every day. 18. Full code.
--- NOTE | 2024-08-22 14:56 | P.PN ---
Subjective Progress Note Date: 08/22/24 Principal diagnosis: Reason for follow-up is a UTI Patient is a 84-year-old female with a past medical history significant for diabetes mellitus hypertension hyperlipidemia PE reflux atrial fibrillation history of recurrent UTI patient presenting to the hospital for ev aluation of right-sided abdominal pain did have CT abdominal pelvis did not show any acute abnormality did have a positive UA and urinary symptoms of burning concerning for UTI pulm this consultation. On today's evaluation that is 08/22/2024, Patient is afebrile patient is currently on room air and denies having any shortness of breath, the patient denies any chest pain or cough, the patient denies any nausea vomiting mention improvement abdominal pain as well as urinary symptoms. Patient white count is 6.16, creat is 1.0 urine is growing E. coli sensitive to ceftriaxone nitrofurantoin Objective - Vital Signs Vital signs: Vital Signs Temp 97.4 F L 08/22/24 07:36 Pulse 78 08/22/24 07:36 Resp 14 08/22/24 07:36 BP 113/69 08/22/24 07:36 Pulse Ox 92 L 08/22/24 07:36 FiO2 Intake & Output 08/21/24 08/22/24 08/22/24 18:59 06:59 18:59 Intake Total 50 Output Total 450 Balance 50 -450 Intake: Intake, IV Titration 50 Amount Ertapenem 1 gm In Sodium 50 Chloride 0.9% 50 ml @ 100 mls/hr IVPB DAILY [facility] Rx #:[id number] Output: Urine 450 Other: Voiding Method Toilet Toilet Toilet # Voids 2 1 1 # Bowel Movements 2 2 - Exam GENERAL DESCRIPTION: An elderly female up in the bed in no distress RESPIRATORY SYSTEM: Unlabored breathing , decreased breath sounds at bases HEART: S1 S2 regular rate and rhythm , ABDOMEN: Soft , no tenderness EXTREMITIES: No edema feet - Labs CBC & Chem 7: 08/22/24 05:10 08/22/24 05:10 Labs: Abnormal Lab Results - Last 24 Hours (Table) 08/21/24 08/21/24 08/21/24 Range/Units 06:02 06:02 17:17 Hgb (12.0-15.0) g/dL Hct (34.0-46.0) % MCH 26.7 L (27.0-32.0) pg MCHC 29.7 L (32.0-37.0) g/dL RDW 16.5 H (11.5-14.5) % Lymphocytes # 0.85 L (0.90-5.00) X 10*3/uL Est GFR (CKD-EPI) (>=60) Glucose (70-110) mg/dL POC Glucose (mg/dL) 113 H (70-110) mg/dL Calcium 8.5 L (8.7-10.3) mg/dL Total Bilirubin (0.3-1.2) mg/dL Total Protein 5.4 L (6.2-8.2) g/dL Albumin 3.4 L (3.8-4.9) g/dL 08/21/24 08/21/24 08/22/24 Range/Units 18:12 20:11 05:10 Hgb 11.1 L (12.0-15.0) g/dL Hct 46.1 H 36.7 L (34.0-46.0) % MCH 26.6 L (27.0-32.0) pg MCHC 30.2 L (32.0-37.0) g/dL RDW 15.8 H 16.0 H (11.5-14.5) % Lymphocytes # (0.90-5.00) X 10*3/uL Est GFR (CKD-EPI) (>=60) Glucose (70-110) mg/dL POC Glucose (mg/dL) 157 H (70-110) mg/dL Calcium (8.7-10.3) mg/dL Total Bilirubin (0.3-1.2) mg/dL Total Protein (6.2-8.2) g/dL Albumin (3.8-4.9) g/dL 08/22/24 Range/Units 05:10 Hgb (12.0-15.0) g/dL Hct (34.0-46.0) % MCH (27.0-32.0) pg MCHC (32.0-37.0) g/dL RDW (11.5-14.5) % Lymphocytes # (0.90-5.00) X 10*3/uL Est GFR (CKD-EPI) 56 L (>=60) Glucose 116 H (70-110) mg/dL POC Glucose (mg/dL) (70-110) mg/dL Calcium 8.4 L (8.7-10.3) mg/dL Total Bilirubin 0.2 L (0.3-1.2) mg/dL Total Protein 5.2 L (6.2-8.2) g/dL Albumin 3.3 L (3.8-4.9) g/dL Microbiology - Last 24 Hours (Table) 08/19/24 22:30 Blood Culture - Preliminary Blood 08/19/24 16:53 Urine Culture - Preliminary Urine,Clean Catch Gram Neg Bacilli Assessment and Plan (1) Abdominal pain Current Visit: Yes Status: Acute Code(s): R10.9 - UNSPECIFIED ABDOMINAL PAIN SNOMED Code(s): 62178004 (2) Allergy to multiple antibiotics Current Visit: No Status: Acute Code(s): Z88.1 - ALLERGY STATUS TO OTHER AN TIBIOTIC AGENTS SNOMED Code(s): 153609164 (3) UTI (urinary tract infection) Current Visit: No Status: Acute Code(s): N39.0 - URINARY TRACT INFECTION, SITE NOT SPECIFIED SNOMED Code(s): 52704136 Plan: 1patient presented to hospital abdominal pain which she was described initially to the right lower quadrant but now mostly in the periumbilical/epigastric area has abated evidence of hernia could be related to that and the CT abdominal pelvis did not show any acute abnormality. 2patient did have positive UA with urinary burning concerning for cystitis. 3patient with multiple antibiotic ALLERGIES that would limit the number of antibiotic safe to use. 4patient urine did grow E. coli that is not an ESBL, continue with Invanz 1 g daily while inpatient because of multiple allergies, plan finish therapy with oral Macrobid x 7 days Dictation was produced using [employer] dictation software. please excuse any grammatical, word or spelling errors. Time with Patient: Less than 30
[2024-08-22 17:26] LABS: Glucose,Whole Blood 110 mg/dL (70-110)
[2024-08-22 20:18] LABS: Glucose,Whole Blood 152 mg/dL (70-110)
[2024-08-22] MEDS: MELATONIN 5 MG TABLET PO PRN (20:58)
[2024-08-23 07:25] LABS: Glucose,Whole Blood 104 mg/dL (70-110)
[2024-08-23] MEDS: ACETAMINOPHEN TAB 325 MG TAB PO PRN (09:47)
[2024-08-23 12:35] LABS: Glucose,Whole Blood 111 mg/dL (70-110)
--- NOTE | 2024-08-23 13:11 | P.PN ---
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 Patient was brought into the emergency department at [facility] yesterday with increased abdominal pain, apparently the patient was recently hospitalized about a month ago at [facility] with recurrent ESBL multidrug-resistant UTI and at that time she did receive a midline and did receive Invanz 1 g piggyback every 24 hours, she apparently saw Dr. Perales on Friday and she was doing okay, I saw the patient on Friday prior to that and she was complaining of increased abdominal pain, she was supposed to go for a CT scan of the abdomen pelvis as well as had laboratory evaluation that showed minimal prerenal azotemia patient was advised to increase oral fluid intake, patient underwent a CT scan of the abdomen pelvis in the ER did not show evidence of acute abnormalities, did show diverticulosis, with fat-containing abdominal wall and umbilical hernia without acute abnormalities mild cardiomegaly with mild coronary calcification as well, because of the presentation the patient was admitted to the hospital she has significant UTI with SIRS, therefore she was admitted to the hospital she was started back on Invanz, discontinue Farxiga at this point in time for recurrent UTI infectious disease consultation from Dr. Perales. 08/21: Patient is laying down in bed in no apparent distress, she denies any chest pain, shortness of breath, she continues to have abdominal pain in the lower abdomen, she has not had a bowel movement, patient will be given MiraLAX 17 g in 8 ounce of water along with a stool softener regularly, may be adding lactulose 20 g orally twice every day as needed, follow-up with the patient very closely, await the final result of the urine culture, last urine culture showed evidence of ESBL multidrug-resistant organism in the form of E. coli that she had received 10-day course of Invanz through her midline, currently on Invanz infectious ease consultation appreciated, physical therapy evaluation, social work case manager consultation for discharge planning. 08/23: Patient is laying down in bed he is feeling better today, she denies any fever or chills at this point, she continues to have some burning sensation with urination, she is struggling to get the urine out, she is currently on Invanz 1 g of piggyback every 24 hours, she has been followed by infectious disease, REVIEW OF SYSTEMS Constitutional: No fever, no chills, no night sweats. No weight change. positive for weakness, fatigue or lethargy. No daytime sleepiness. HEENT: No headache. No blurred vision or double vision, no loss of vision. Chronic loss of Hearing, no ringing in the ears, no dizziness. No nasal drainage or congestion. No epistaxis. No sore throat. Lungs: No shortness of breath, cough, no sputum production. No wheezing. Cardiovascular: No chest pain, no lower extremity edema. No palpitations. No paroxysmal nocturnal dyspnea. No orthopnea. No lightheadedness or dizziness. No syncopal episodes. Abdominal: Positive for abdominal pain. No nausea, vomiting. No diarrhea. No constipation. No bloody or tarry stools. No loss of appetite. Genitourinary: positive for dysuria, positive for frequency, urgency. No urinary retention. Musculoskeletal: No myalgias. Noted muscle weakness, noted gait dysfunction, fall at home. No back pain. No neck pain. Right knee discomfort Integumentary: . No rash or pruritus. No unusual bruising. No change in hair or nails. Neurologic: No aphasia. No facial droop. No change in mentation. No head injury. No headache. No paralysis. No paresthesia. Psychiatric: Mild depression. No anxiety. No mood swings.no mental status changes Endocrine: No abnormal blood sugars. No weight change. No excessive sweating or thirst. No cold intolerance. PHYSICAL EXAMINATION Gen: This is an 84-year-old obese female no distress. HEENT: Head is atraumatic, normocephalic. Pupils equal, round. Sclerae is anicteric. NECK: Supple. No JVD. No lymphadenopathy. No thyromegaly. LUNGS: Clear to auscultation. No wheezes or rhonchi. No intercostal retractions. HEART: First heart sound is depressed, second heart sound is normal, 2/6 systolic ejection murmur at the left sternal border. ABDOMEN: Soft, mild tenderness to the epigastric area, no rebound or guarding positive bowel sounds EXTREMITIES: +1 pedal edema. No calf tenderness, DP+2 bilaterally. NEUROLOGICAL: Patient is awake, alert and oriented to person and place, CN II- XII are grossly intact muscle power 4/5 in bilateral upper and lower extremities. ASSESSMENT AND PLAN 1. Recurrent UTI with multidrug-resistant organism last 1 month ESBL E. coli in the past now is sensitive to Macrobid . continue on Invanz 1 g piggyback every 24 hours for 1 more day and then switch her to oral Macrobid 100 mg orally twice every day for 7 days as an outpatient. Monitor the patient symptoms very closely.Repeated urine culture showed evidence of E. coli that is sensitive to Macrobid 100 mg orally twice every day to finish 7-day course of that. 2. Paroxysmal Atrial fibrillation. Continue Eliquis 5 mg orally twice every d ay. Continue verapamil 120 mg daily. 3. Hypertension and hypertensive cardiovascular disease. Continue patient on hydrochlorothiazide 25 mg daily, losartan 100 mg daily, and verapamil [address] Monitor the patient blood pressure very closely. 5. Mixed hyperlipidemia. we will continue Zetia 10 mg po daily patient is not able to tolerate statin at this point in time. She can be offered Repatha as an outpatient. 6. Diabetes mellitus type 2. Continue patient on add NovoLog scale before meals and at bedtime, we will continue off Farxiga we will continue with Ozempic 1 mg subcutaneously every weekalong with a sliding scale insulin 7. Diabetic polyneuropathy. Continue Duloxetin 60 mg po daily continue pregabalin 200 mg orally twice every day 8. 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 Continue pregabalin 200 mg orally twice every day. Continue patient on current pain management as well. 9. Idiopathic gout. Continue allopurinol 100 mg daily. 10. Obstructive sleep apnea. Continue CPAP. 11. GI prophylaxis and gastroesophageal reflux disease. Continue Protonix 40 mg po daily 12. DVT prophylaxis. Continue Eliquis 5 mg orally twice every day. 14. Diabetic polyneuropathy. Continue pregabalin 200 mg orally twice every day. 16. Likely home tomorrow morning Objective - Vital Signs Vital signs: Vital Signs Temp 97.8 F 08/23/24 11:54 Pulse 81 08/23/24 11:54 Resp 14 08/23/24 11:54 BP 127/74 08/23/24 11:54 Pulse Ox 96 01/13/25 11:54 FiO2 Intake & Output 08/22/24 08/23/24 08/23/24 18:59 06:59 18:59 Intake Total 950 Balance 950 Intake: Intake, IV Titration 950 Amount Ertapenem 1 gm In Sodium 50 Chloride 0.9% 50 ml @ 100 mls/hr IVPB DAILY [facility] Rx #:[id number] Sodium Chloride 0.9% 1, 900 000 ml @ 75 mls/hr IV . [id number] [facility] Rx#:[id number] Other: Voiding Method Toilet Toilet # Voids 2 1 2 # Bowel Movements 1 - Labs CBC & Chem 7: 08/22/24 05:10 08/22/24 05:10 Labs: Abnormal Lab Results - Last 24 Hours (Table) 08/22/24 08/23/24 Range/Units 20:16 12:15 POC Glucose (mg/dL) 152 H 111 H (70-110) mg/dL Microbiology - Last 24 Hours (Table) 08/19/24 22:30 Blood Culture - Preliminary Blood 08/19/24 16:53 Urine Culture - Final Urine,Clean Catch Escherichia coli
[2024-08-23 17:20] LABS: Glucose,Whole Blood 143 mg/dL (70-110)
[2024-08-23 20:09] LABS: Glucose,Whole Blood 147 mg/dL (70-110)
[2024-08-23] MEDS: CYCLOBENZAPRINE 10 MG TAB PO PRN (20:14)
[2024-08-24 07:46] LABS: Glucose,Whole Blood 104 mg/dL (70-110)
[2024-08-24 08:02] VITALS: RESP 14
[2024-08-24 09:24] LABS: ALT 9 U/L (8-44); AST 14 U/L (13-35); Albumin 3.4 g/dL (3.8-4.9); Albumin/Globulin Ratio 1.55 Ratio (1.60-3.17); Alkaline Phosphatase 50 U/L (41-126); Blood Urea Nitrogen 18.4 mg/dL (9.0-27.0); Calcium 8.7 mg/dL (8.7-10.3); Carbon Dioxide 23.7 mmol/L (21.6-31.8); Chloride 107 mmol/L (96-109); Globulin 2.2 g/dL (1.6-3.3); Glucose 109 mg/dL (70-110); Potassium 4.7 mmol/L (3.5-5.5); Sodium 140 mmol/L (135-145); Total Bilirubin <0.2 mg/dL (0.3-1.2); Total Protein 5.6 g/dL (6.2-8.2)
--- NOTE | 2024-08-24 09:24 | P.PN ---
Subjective Progress Note Date: 08/23/24 Principal diagnosis: Reason for follow-up is a UTI Patient is a 84-year-old female with a past medical history significant for diabetes mellitus hypertension hyperlipidemia PE reflux atrial fibrillation history of recurrent UTI patient presenting to the hospital for ev aluation of right-sided abdominal pain did have CT abdominal pelvis did not show any acute abnormality did have a positive UA and urinary symptoms of burning concerning for UTI pulm this consultation. On today's evaluation that is 08/23/2023, patient has been afebrile, patient is breathing comfortably and is currently on room air, patient denies having any significant cough no chest pain, patient denies nausea vomiting or diarrhea and abdominal pain has decreased in intensity as well as urinary symptoms. No new labs were obtained today Objective - Vital Signs Vital signs: Vital Signs Temp 97.8 F 08/23/24 11:54 Pulse 81 08/23/24 11:54 Resp 14 08/23/24 11:54 BP 127/74 08/23/24 11:54 Pulse Ox 96 08/23/24 11:54 FiO2 Intake & Output 08/22/24 08/23/24 08/23/24 18:59 06:59 18:59 Intake Total 950 Balance 950 Intake: Intake, IV Titration 950 Amount Ertapenem 1 gm In Sodium 50 Chloride 0.9% 50 ml @ 100 mls/hr IVPB DAILY [facility] Rx #:[id number] Sodium Chloride 0.9% 1, 900 000 ml @ 75 mls/hr IV . [id number] [facility] Rx#:[id number] Other: Voiding Method Toilet Toilet # Voids 2 1 2 # Bowel Movements 1 - Exam GENERAL DESCRIPTION: An elderly female up in the bed in no distress RESPIRATORY SYSTEM: Unlabored breathing , decreased breath sounds at bases HEART: S1 S2 regular rate and rhythm , ABDOMEN: Soft , no tenderness EXTREMITIES: No edema feet - Labs CBC & Chem 7: 08/22/24 05:10 08/22/24 05:10 Labs: Abnormal Lab Results - Last 24 Hours (Table) 08/22/24 08/23/24 Range/Units 20:16 12:15 POC Glucose (mg/dL) 152 H 111 H (70-110) mg/dL Microbiology - Last 24 Hours (Table) 08/19/24 22:30 Blood Culture - Preliminary Blood 08/19/24 16:53 Urine Culture - Final Urine,Clean Catch Escherichia coli Assessment and Plan (1) Abdominal pain Current Visit: Yes Status: Acute Code(s): R10.9 - UNSPECIFIED ABDOMINAL PAIN SNOMED Code(s): 61092690 (2) Allergy to multiple antibiotics Current Visit: No Status: Acute Code(s): Z88.1 - ALLERGY STATUS TO OTHER ANTIBIOTIC AGENTS SNOMED Code(s): 956578523 (3) UTI (urinary tract infection) Current Visit: No Status: Acute Code(s): N39.0 - URINARY TRACT INFECTION, SITE NOT SPECIFIED SNOMED Code(s): 50094458 Plan: 1patient presented to hospital abdominal pain which she was described initially to the right lower quadrant but now mostly in the periumbilical/epigastric area has abated evidence of hernia could be related to that and the CT abdominal pelvis did not show any acute abnormality. 2patient did have positive UA with urinary burning concerning for cystitis. 3patient with multiple antibiotic ALLERGIES that would limit the number of antibiotic safe to use. 4patient urine did grow E. coli that is not an ESBL, and has shown improvement with Invanz 1 g daily to continue while inpatient because of multiple allergies, plan finish therapy with oral Macrobid x 7-10 days on discharge Dictation was produced using [email or web address] dictation software. please excuse any grammatical, word or spelling errors. Time with Patient: Less than 30
[2024-08-24 10:41] LABS: Basophils # (A) 0.02 X 10*3/uL (0.00-0.10); Basophils % (A) 0.4 %; Eosinophils % (A) 4.3 %; HCT 40.4 % (37.2-46.3); HGB 11.8 g/dL (12.0-15.0); Lymphocytes # (A) 0.96 X 10*3/uL (0.90-5.00); Lymphocytes % (A) 20.5 %; MCHC 29.2 g/dL (32.0-37.0); MCV 89.2 FL (80.0-97.0); Mean Platelet Volume 11.3 FL (9.5-12.2); Monocytes # (A) 0.63 X 10*3/uL (0.20-1.00); Monocytes % (A) 13.4 %; NRBC Per 100 WBC 0 X 10*3/uL (0.00-0.01); Neutrophils # (A) 2.87 X 10*3/uL (1.80-7.70); Neutrophils % (A) 61.2 %; Platelet Count 194 X 10*3/uL (140-440); RBC 4.53 X 10*6/uL (4.10-5.20); RDW 15.9 % (11.5-14.5); WBC 4.69 X 10*3/uL (4.50-10.00)
[2024-08-24 12:06] LABS: Glucose,Whole Blood 99 mg/dL (70-110)
[2024-08-24 12:30] VITALS: BP 125/80; PULSE 82; TEMP 97.5
[2024-08-24 17:15] LABS: Glucose,Whole Blood 106 mg/dL (70-110)
--- NOTE | 2024-08-25 08:17 | P.PN ---
Subjective Progress Note Date: 08/24/24 Principal diagnosis: Reason for follow-up is a UTI Patient is a 84-year-old female with a past medical history significant for diabetes mellitus hypertension hyperlipidemia PE reflux atrial fibrillation history of recurrent UTI patient presenting to the hospital for ev aluation of right-sided abdominal pain did have CT abdominal pelvis did not show any acute abnormality did have a positive UA and urinary symptoms of burning concerning for UTI pulm this consultation. On today's evaluation that is 08/24/2023, Patient is afebrile this morning patient denies having any chest pain shortness of breath or cough, the patient is currently on room air, patient denies any abdominal pain no diarrhea no nausea no vomiting, mention feeling better. Patient did have white count of 4.69, creatinine 0.8 urine with an E. coli Objective - Vital Signs Vital signs: Vital Signs Temp 97.5 F L 08/24/24 11:56 Pulse 82 08/24/24 11:56 Resp 14 08/24/24 11:56 BP 125/80 08/24/24 11:56 Pulse Ox 96 08/24/24 11:56 FiO2 Intake & Output 08/23/24 08/24/24 08/24/24 18:59 06:59 18:59 Output Total 500 Balance -500 Output: Urine 500 Other: Voiding Method Toilet Toilet # Voids 1 1 # Bowel Movements 1 - Exam GENERAL DESCRIPTION: An elderly female up in the bed in no distress RESPIRATORY SYSTEM: Unlabored breathing , decreased breath sounds at bases HEART: S1 S2 regular rate and rhythm , ABDOMEN: Soft , no tenderness EXTREMITIES: No edema feet - Labs CBC & Chem 7: 08/24/24 05:38 08/24/24 05:38 Labs: Abnormal Lab Results - Last 24 Hours (Table) 08/23/24 08/23/24 08/24/24 Range/Units 17:16 20:07 05:38 Hgb 11.8 L (12.0-15.0) g/dL MCH 26.0 L (27.0-32.0) pg MCHC 29.2 L (32.0-37.0) g/dL RDW 15.9 H (11.5-14.5) % BUN/Creatinine Ratio (12.00-20.00) Ratio POC Glucose (mg/dL) 143 H 147 H (70-110) mg/dL Total Bilirubin (0.3-1.2) mg/dL Total Protein (6.2-8.2) g/dL Albumin (3.8-4.9) g/dL Albumin/Globulin Ratio (1.60-3.17) Ratio // Range/Units 05:38 Hgb (12.0-15.0) g/dL MCH (27.0-32.0) pg MCHC (32.0-37.0) g/dL RDW (11.5-14.5) % BUN/Creatinine Ratio 23.00 H (12.00-20.00) Ratio POC Glucose (mg/dL) (70-110) mg/dL Total Bilirubin <0.2 L (0.3-1.2) mg/dL Total Protein 5.6 L (6.2-8.2) g/dL Albumin 3.4 L (3.8-4.9) g/dL Albumin/Globulin Ratio 1.55 L (1.60-3.17) Ratio Assessment and Plan (1) Abdominal pain Status: Acute Code(s): R10.9 - UNSPECIFIED ABDOMINAL PAIN SNOMED Code(s): 25163875 (2) Allergy to multiple antibiotics Status: Acute Code(s): Z88.1 - ALLERGY STATUS TO OTHER ANTIBIOTIC AGENTS SNOMED Code(s): 386281843 (3) UTI (urinary tract infection) Status: Acute Code(s): N39.0 - URINARY TRACT INFECTION, SITE NOT SPECIFIED SNOMED Code(s): 89244411 Plan: 1patient presented to hospital abdominal pain which she was described initially to the right lower quadrant but now mostly in the periumbilical/epigastric area has abated evidence of hernia could be related to that and the CT abdominal pelvis did not show any acute abnormality. 2patient did have positive UA with urinary burning concerning for cystitis. 3patient with multiple antibiotic ALLERGIES that would limit the number of antibiotic safe to use. 4patient urine did grow E. coli that is not an ESBL, and has shown improvement with Invanz 1 g daily to continue while inpatient because of multiple allergies, 5- plan finish therapy with oral Macrobid 10 days on discharge, discussed with admitting team Dictation was produced using [employer] dictation software. please excuse any grammatical, word or spelling errors. Time with Patient: Less than 30
== END 2024-08-24 17:37 | disposition home health service (06) | DRG 690 ==
LOC: EC 12:50 → 4SSUR 22:20 → OBSVTOIN 22:21 → 5NMEDONC 23:26
PROVIDERS: ADMIT Internal Medicine; ATTEND Internal Medicine
DX: N30.90 Cystitis, unspecified without hematuria (principal); B96.20 Unspecified Escherichia coli [E. coli] as the cause of diseases classified elsewhere; E11.42 Type 2 diabetes mellitus with diabetic polyneuropathy; E78.2 Mixed hyperlipidemia; G47.33 Obstructive sleep apnea (adult) (pediatric); I11.9 Hypertensive heart disease without heart failure; M06.9 Rheumatoid arthritis, unspecified; Z16.12 Extended spectrum beta lactamase (ESBL) resistance; I48.0 Paroxysmal atrial fibrillation; M79.7 Fibromyalgia; M47.26 Other spondylosis with radiculopathy, lumbar region; M10.00 Idiopathic gout, unspecified site; K42.9 Umbilical hernia without obstruction or gangrene; Z79.899 Other long term (current) drug therapy; Z88.1 Allergy status to other antibiotic agents; Z88.0 Allergy status to penicillin; Z88.8 Allergy status to other drugs, medicaments and biological substances; Z87.440 Personal history of urinary (tract) infections; Z79.01 Long term (current) use of anticoagulants; Z82.49 Family history of ischemic heart disease and other diseases of the circulatory system; Z86.711 Personal history of pulmonary embolism; Z86.73 Personal history of transient ischemic attack (TIA), and cerebral infarction without residual deficits; Z96.651 Presence of right artificial knee joint; Z90.710 Acquired absence of both cervix and uterus; Z79.84 Long term (current) use of oral hypoglycemic drugs
CPT/HCPCS: 36415; 74177; 80053; 81001; 82150; 83605; 83690; 85025; 85610; 85730; 86140; 87040; 87077; 87086; 87186; 93005; 96361; 96365; 96375; 96376; 99285

== ENCOUNTER 2024-09-09 15:53 | Inpatient (IN) | payer MEDICARE, OTHER ==
--- NOTE | 2024-09-09 16:51 | ED ---
Skin/Abscess/FB HPI - General Source: patient, RN notes reviewed Mode of arrival: wheelchair Limitations: no limitations <Ashlee Clark - Last Filed: 09/09/24 16:51> <Barbara Olson - Last Filed: 09/10/24 13:10> - General Chief complaint: Skin/Abscess/Foreign Body Stated complaint: right side abdominal pain Time Seen by Provider: 09/09/24 16:49 - History of Present Illness Initial comments: Quick [id number] female presenting for skin infection. States 2 days ago she noticed that she has an infection in the right lower quadrant of her abdomen. Denies fever, nausea, vomiting. (Ashlee Clark) Patient is an 84-year-old female presenting for skin infection with associated abdominal pain. Pt defers to her daughter to provide majority of history. She states pt was recently admitted to the hosptal about 2 weeks ago for abdominal taylor and UTI. Pt has been doing well until about 2 days ago when she and her daughter noticed an erythematous rash on the pt's abdomen. Pt has been comp laining of worsening pain in that region that does not improve with home norco. Pt denies fevers or chills, vomiting, diarrhea, dysuria or urinary frequency. Daughter denies pt having prior abdominal surgeries. Pt is at her baseline mental status per daughter. Pt does live alone. (Barbara Olson) - Related Data Home Medications Medication Instructions Recorded Confirmed allopurinoL [Zyloprim] 100 mg PO DAILY 09/21/20 09/09/24 Cholecalciferol [Vitamin D3 (25 25 mcg PO DAILY 11/04/22 09/09/24 Mcg = 1000 Iu)] Losartan Potassium [Cozaar] 100 mg PO DAILY 11/04/22 09/09/24 Vitamin B Complex 1 cap PO DAILY 11/04/22 09/09/24 DULoxetine HCL [Cymbalta] 60 mg PO DAILY 01/03/23 09/09/24 Multivit-Min/Iron/Folic/Lutein 1 tab PO DAILY 01/03/23 09/09/24 [Centrum Silver Women Tablet] Ezetimibe [Zetia] 10 mg PO DAILY 07/17/23 09/09/24 Furosemide [Lasix] 20 mg PO DAILY PRN 07/17/23 09/09/24 Acetaminophen Tab [Tylenol] 650 mg PO Q6H PRN 09/12/23 09/09/24 Azo D-Mannose 500mg 2,000 mg PO DAILY 09/12/23 09/09/24 L.acidoph,Paracasei, B.lactis 1 cap PO DAILY 09/12/23 09/09/24 [Probiotic] Melatonin 10 mg PO HS PRN 09/12/23 09/09/24 Potassium Chloride [Klor-Con M10] 10 meq PO DAILY PRN 09/12/23 09/09/24 Ubidecarenone [Coenzyme Q10] 200 mg PO DAILY 09/12/23 09/09/24 hydroCHLOROthiazide [Hydrodiuril] 25 mg PO DAILY 09/12/23 09/09/24 DULoxetine HCL [Cymbalta] 30 mg PO HS 06/22/24 09/09/24 Semaglutide [Ozempic] 1 mg SQ TH 07/21/24 09/09/24 Verapamil HCl [Calan] 120 mg PO DAILY 07/21/24 09/09/24 HYDROcodone/APAP 7.5-325MG [[place] 1 tab PO TID 08/19/24 09/09/24 7.5-325] Previous Rx's Medication Instructions Recorded Apixaban [Eliquis] 5 mg PO BID #60 tab 11/13/22 Cyclobenzaprine [Flexeril] 10 mg PO TID PRN 30 Days #90 tab 06/07/24 Pregabalin [Lyrica] 200 mg PO BID #6 cap 07/26/24 Triamcinolone 0.1% Paste [Oralone 1 applic MUCOUS MEM PC-BID 4 Days 07/26/24 0.1% Paste] each Cholestyramine (with Sugar) 4 gm PO DAILY #0 packet 07/27/24 [Questran Packet] Allergies Allergy/AdvReac Type Severity Reaction Status Date / Time cephalexin [From Keflex] Allergy Rash/Hives Verified 09/09/24 21:14 clindamycin Allergy Rash/Hives Verified 09/09/24 21:14 Penicillins Allergy Unknown Verified 09/09/24 21:14 oxybutynin [From Ditropan] AdvReac Hallucinati Verified 09/09/24 21:14 ons Review of Systems ROS Other: All systems not noted in ROS Statement are negative. <Ashlee Clark - Last Filed: 09/09/24 16:51> ROS Other: All systems not noted in ROS Statement are negative. <Barbara Olson - Last Filed: 09/10/24 13:10> ROS Statement: Those systems with pertinent positive or pertinent negative responses have been documented in the HPI. Past Medical History Past Medical History: Atrial Fibrillation, CVA/TIA, Diabetes Mellitus, Fibromyalgia, GERD/Reflux, Hypertension, Pneumonia, Pulmonary Embolus (PE), Rheumatoid Arthritis (RA) Additional Past Medical History / Comment(s): recurrent UTIs, cataracts, recent TIA, hx. of PE. History of Any Multi-Drug Resistant Organisms: None Reported Date of last positivie culture/infection: 07/20/24 MDRO Source:: urine Past Surgical History: Back Surgery, Hysterectomy, Joint Replacement, Orthopedic Surgery Additional Past Surgical History / Comment(s): 5 back surgery since 2014, total hysterectomy,R knee replacement Past Anesthesia/Blood Transfusion Reactions: No Reported Reaction Past Psychological History: No Psychological Hx Reported Smoking Status: Never smoker Past Alcohol Use History: Rare Past Drug Use History: None Reported - Past Family History Mother Family Medical History: CVA/TIA, Hyperlipidemia, Hypertension, Myocardial Infarction (AL) <ClarkAshlee - Last Filed: 09/09/24 16:51> General Exam Limitations: no limitations <ClarkAshlee - Last Filed: 09/09/24 16:51> <Barbara - Last Filed: 09/10/24 13:10> - General Exam Comments Initial Comments: Visual Physical Exam Vital signs reviewed General: Well-appearing, nontoxic, no acute distress. Head: Normocephalic, atraumatic Eyes: PERRLA, EOMI ENT: Airway patent Chest: Nonlabored breathing Skin: No visual rash, normal skin tone Neuro: Alert and oriented 3 Musculoskeletal: No gross abnormalities (Ashlee Clark) PE: CONSTITUTIONAL: No apparent distress, well appearing, however tearful SKIN: Warm, dry, no jaundice, hives or petechiae. Linear area of erythema about 3 cm lateral to the umbilicus in the RLQ, with scabbed lesion in the center, no discharge or fluctuance, this extends towards the suprapubic region but ends j ust above the pubic symphysis EYES: Pupils are equally round, extraocular movements intact without nystagmus, clear conjunctiva, non-icteric sclera HENT: Normocephalic, atraumatic, moist mucus membranes, oropharynx clear without exudates NECK: , Full range of motion, normal appearance PULMONARY: Clear to auscultation without wheezes, rhonchi, or rales, normal excursion, no accessory muscle use and no stridor CARDIOVASCULAR: Regular rate, rhythm, normal S1 and S2. No appreciated murmurs, rubs or gallops. Strong radial pulses with intact distal perfusion. No lower extremity edema GASTROINTESTINAL: Soft, active bowel sounds throughout,diffusely TTP, but particularly in the RLQ overlying area of erythema, reducible ventral hernia, no palpable umbilical hernia mildly distended, no palpable masses, no rebound No hepatosplenomegaly GENITOURINARY: MUSCULOSKELETAL: Extremities have no gross deformity NEUROLOGIC:_a/o x 2-3, unsure of exact date, GCS 15, normal mentation and speech. Moves all extremities x 4 without motor or sensory deficit PSYCHIATRIC: Tearful and anxious mood and affect, thought process appears clear and linear however prefers to defer to daughter to provide majority of history (Barbara Olson) Course Vital Signs 09/09/24 09/09/24 09/09/24 16:42 17:41 20:58 Temperature 98.4 F Pulse Rate 104 H 74 Respiratory 1 L 20 20 Rate Blood Pressure 122/71 145/88 O2 Sat by Pulse 93 L 96 Oximetry 09/09/24 23:33 Temperature 98.2 F Pulse Rate 76 Respiratory 16 Rate Blood Pressure 137/80 O2 Sat by Pulse 94 L Oximetry Medical Decision Making <Ashlee Clark - Last Filed: 09/09/24 16:51> - Lab Data Result diagrams: 09/09/24 18:19 09/09/24 18:19 <Barbara Olson - Last Filed: 09/10/24 13:10> - Medical Decision Making I completed the quick note portion of this chart signed Ashlee Clark PA-C (Ashlee Clark) Was pt. sent in by a medical professional or institution (ROSALINA Black, BOOK MENDER, urgent care, hospital, or senior care...) When possible be specific @ -No Did you speak to anyone other than the patient for history (EMS, parent, family, police, friend...)? What history was obtained from this source @I spoke with patient's daughter who provided majority of history Did you review nursing and triage notes (agree or disagree)? Why? @ -I reviewed nursing and triage notes Were old charts reviewed (outside hosp., previous admission, EMS record, old EKG, old radiological studies, urgent care reports/EKG's, senior care records)? Report findings @ -Medical records reviewed patient had CT abdomen pelvis with contrast performed on 08/19/2024 when she presented for right lower quadrant pain and hematemesis, showed no acute process though did note a fat-containing ventral hernia and umbilical hernia Differential Diagnosis (chest pain, altered mental status, abdominal pain women, abdominal pain men, vaginal bleeding, weakness, fever, dyspnea, syncope, headache, dizziness, GI bleed, back pain, seizure, CVA, palpatations, mental health, musculoskeletal)? @ -Differential diagnosis pain degenerative considerations include cellulitis, infected hematoma, incarcerated medical hernia, abscess, this is not all- inclusive list EKG interpreted by me (3pts min.). @ -As above X-rays interpreted by me (1pt min.). @ -None done CT interpreted by me (1pt min.). @There appears to be some inflammatory superficial changes of the soft tissue on the right lower quadrant off the abdomen,this does not appear to extend through to the bowel wall, no abscess formation, incarcerated hernia, free air or free fluid or other acute intraabdominal process U/S interpreted by me (1pt. min.). @ -None done What testing was considered but not performed or refused? (CT, X-rays, U/S, labs)? Why? @ -None What meds were considered but not given or refused? Why? @ -None Did you discuss the management of the patient with other professionals (professionals i.e. , PA, BOOK MENDER, lab, RT, psych nurse, child protective services social worker, computer forwarding system markup clerk, teacher, ground intelligence officer, case work aide)? Give summary @ -No Was smoking cessation discussed for >3mins.? @ -No Was critical care preformed (if so, how long)? @ -No Were there social determinants of health that impacted care today? How? (Homelessness, low income, unemployed, alcoholism, drug addiction, noble sportation, low edu. Level, literacy, decrease access to med. care, senior care, rehab)? @ -No Was there de-escalation of care discussed even if they declined (Discuss DNR or withdrawal of care, Hospice)? @ -No What co-morbidities impacted this encounter? (DM, HTN, Smoking, COPD, CAD, Cancer, CVA, ARF, Chemo, Hep., AIDS, mental health diagnosis, sleep apnea, morbid obesity)? @Recurrent UTI, A-fib, prior CVA, fibromyalgia, GERD, hypertension, prior PE, prior hysterectomy Was patient admitted / discharged? Hospital course, mention meds given and route, prescriptions, significant lab abnormalities, going to OR and other pertinent info. @ Admission- Pt is an 84-year-old female history A-fib, prior CVA, fibromyalgia, GERD, hypertension, prior PE, prior hysterectomy presenting for right lower quadrant pain with associated cellulitis. Patient was seen in a hallway bed limiting physical exam. She is afebrile with Mild tachycardia heart rate 104 blood pressure stable on arrival, of note initial respiratory rate is recorded as 1, this is a typo, patient's displays no respiratory depression on my a ssessment. There is an area of erythema on the right lower quadrant of the abdomen with few small greenish/ older appearnig bruises are present ,presumably from insulin injections during recent hospitalization, scab noted in the center. This is lateral to the umbilicus. Pt's abdomen is mildly distended, with reducible ventral hernia and active bowel sounds. Of note, no umbilical hernia palpated on exam however pt was noted to have one on recent CT. Diff dx as above, however of top considerations or incarcerated umbilical hernia, causing overlying skni changes, infected hematoma, cellulitis and abscess. For this reason, will obtain CT abdomen/pelvis w/ contrast, comprehensive labs, give pain control and broad spectrum antibiotics.Pt and daughter agreeable with POC. Pt has multiple antibiotics allergies- discussed with pharmacy, they recommend aztreoman which was subsequently ordered. Labs and imaging reviewed. Grossly within normal limits. Abnormal values not concerning for acute pathology related to presenting complaint. CT shows no acute infectious or surgical process, labs overall reassurinig, UA does show questionable UTI, Cloudy appearing urine esterase, greater than 182 red cells, 133 white blood cells 4 squamous cells many but negative nitrites. This is potentially a contaminated specimen however will continue antibiotics at this point. On reassessment patient remains painful. Will give additional 4 mg IV morphine discussed with patient and daughter plan for admission due to patient's persistent pain overlying the area of cellulitis. I feel this should be nuria tored inpatient to ensure improvement prior to discharge. Pt and daughter agreeable with POC. Discussed case with Dr. Austin, kindly accepts pt for admission. Undiagnosed new problem with uncertain prognosis? @ -No Drug Therapy requiring intensive monitoring for toxicity (Heparin, Nitro, Insulin, Cardizem)? @ -No Were any procedures done? @ -No Diagnosis/symptom? Cellulitis, UTI, RLQ abdominal pain Acute, or Chronic, or Acute on Chronic? @ -acute Uncomplicated (without systemic symptoms) or Complicated (systemic symptoms)? complicated Side effects of treatment? @ -No Exacerbation, Progression, or Severe Exacerbation? @ -No Poses a threat to life or bodily function? How? (Chest pain, [place], AL, pneumonia, PE, COPD, DKA, ARF, appy, cholecystitis, CVA, Diverticulitis, Homicidal, Suicidal, threat to staff... and all critical care pts) @ -No (,Barbara) - Lab Data Lab Results 09/09/24 09/09/24 09/09/24 Range/Units 18:19 18:19 18:19 WBC 8.2 (3.8-10.6) k/uL RBC 4.61 (3.80-5.40) m/uL Hgb 12.8 (11.4-16.0) gm/dL Hct 39.1 (34.0-46.0) % MCV 84.9 D (80.0-100.0) fL MCH 27.7 (25.0-35.0) pg MCHC 32.6 (31.0-37.0) g/dL RDW 15.6 H (11.5-15.5) % Plt Count 194 (150-450) k/uL MPV 8.1 Neutrophils % 78 % Lymphocytes % 10 % Monocytes % 8 % Eosinophils % 1 % Basophils % 0 % Neutrophils # 6.4 (1.3-7.7) k/uL Lymphocytes # 0.9 L (1.0-4.8) k/uL Monocytes # 0.7 (0-1.0) k/uL Eosinophils # 0.1 (0-0.7) k/uL Basophils # 0.0 (0-0.2) k/uL Hypochromasia Slight PT (10.0-12.5) sec INR (<1.2) APTT (22.0-30.0) sec Sodium 139 (137-145) mmol/L Potassium 3.8 (3.5-5.1) mmol/L Chloride 99 (98-107) mmol/L Carbon Dioxide 32 H (22-30) mmol/L Anion Gap 8 mmol/L BUN 20 H (7-17) mg/dL Creatinine 0.78 (0.52-1.04) mg/dL Est GFR (CKD-EPI)AfAm 82 (>60 ml/min/1.73 sqM) Est GFR (CKD-EPI)NonAf 71 (>60 ml/min/1.73 sqM) Glucose 97 (74-99) mg/dL Plasma Lactic Acid [place] 1.3 (0.7-2.0) mmol/L Calcium 9.9 (8.4-10.2) mg/dL Total Bilirubin 0.6 (0.2-1.3) mg/dL AST 27 (14-36) U/L ALT 15 (4-34) U/L Alkaline Phosphatase 61 (38-126) U/L Total Protein 6.4 (6.3-8.2) g/dL Albumin 3.9 (3.5-5.0) g/dL Amylase 52 (30-110) U/L Lipase 64 (23-300) U/L Urine Color Urine Appearance (Clear) Urine pH (5.0-8.0) Ur Specific [place] (1.001-1.035) Urine Protein (Negative) Urine Glucose (UA) (Negative) Urine Ketones (Negative) Urine Blood (Negative) Urine Nitrite (Negative) Urine Bilirubin (Negative) Urine Urobilinogen (<2.0) mg/dL Ur Leukocyte Esterase (Negative) Urine RBC (0-5) /hpf Urine WBC (0-5) /hpf Ur Squamous Epith Cells (0-4) /hpf Urine Bacteria (None) /hpf Hyaline Casts (0-2) /lpf Urine Mucus (None) /hpf 09/09/24 09/09/24 Range/Units 18:19 18:19 WBC (3.8-10.6) k/uL RBC (3.80-5.40) m/uL Hgb (11.4-16.0) gm/dL Hct (34.0-46.0) % MCV (80.0-100.0) fL MCH (25.0-35.0) pg MCHC (31.0-37.0) g/dL RDW (11.5-15.5) % Plt Count (150-450) k/uL MPV Neutrophils % % Lymphocytes % % Monocytes % % Eosinophils % % Basophils % % Neutrophils # (1.3-7.7) k/uL Lymphocytes # (1.0-4.8) k/uL Monocytes # (0-1.0) k/uL Eosinophils # (0-0.7) k/uL Basophils # (0-0.2) k/uL Hypochromasia PT 11.8 (10.0-12.5) sec INR 1.1 (<1.2) APTT 22.2 (22.0-30.0) sec Sodium (137-145) mmol/L Potassium (3.5-5.1) mmol/L Chloride (98-107) mmol/L Carbon Dioxide (22-30) mmol/L Anion Gap mmol/L BUN (7-17) mg/dL Creatinine (0.52-1.04) mg/dL Est GFR (CKD-EPI)AfAm (>60 ml/min/1.73 sqM) Est GFR (CKD-EPI)NonAf (>60 ml/min/1.73 sqM) Glucose (74-99) mg/dL Plasma Lactic Acid [place] (0.7-2.0) mmol/L Calcium (8.4-10.2) mg/dL Total Bilirubin (0.2-1.3) mg/dL AST (14-36) U/L ALT (4-34) U/L Alkaline Phosphatase (38-126) U/L Total Protein (6.3-8.2) g/dL Albumin (3.5-5.0) g/dL Amylase (30-110) U/L Lipase (23-300) U/L Urine Color Yellow Urine Appearance Cloudy H (Clear) Urine pH 6.0 (5.0-8.0) Ur Specific [place] 1.029 (1.001-1.035) Urine Protein 1+ H (Negative) Urine Glucose (UA) Negative (Negative) Urine Ketones 1+ H (Negative) Urine Blood Moderate H (Negative) Urine Nitrite Negative (Negative) Urine Bilirubin Negative (Negative) Urine Urobilinogen 2.0 (<2.0) mg/dL Ur Leukocyte Esterase Moderate H (Negative) Urine RBC >182 H (0-5) /hpf Urine WBC 133 H (0-5) /hpf Ur Squamous Epith Cells 4 (0-4) /hpf Urine Bacteria Many H (None) /hpf Hyaline Casts 2 (0-2) /lpf Urine Mucus Rare H (None) /hpf Disposition <Ashlee Clark - Last Filed: 09/09/24 16:51> <Barbara Olson - Last Filed: 09/10/24 13:10> Clinical Impression: Cellulitis Disposition: ADMITTED IP TO THIS HOSP Condition: Stable
[2024-09-09] MEDS: SODIUM CHLORIDE 0.9% 500 ML 500 ML IV STA (18:21)
[2024-09-09] MEDS: MORPHINE SULFATE 2 MG/ML SYRINGE IVP STA (18:22)
[2024-09-09] MEDS: ONDANSETRON 4 MG/2 ML VIAL IVP STA ×2 (18:23→21:33)
[2024-09-09] MEDS: ACETAMINOPHEN IV (For NPO) 1,000 MG in EMPTY BAG 1 BAG IVPB STA (18:24)
[2024-09-09 18:55] LABS: Appearance,Urine Cloudy (Clear); Bacteria,Urine Many /hpf; Bilirubin,Urine Negative (Negative); Blood,Urine Moderate (Negative); Color,Urine Yellow; Glucose,Urine (UA) Negative (Negative); Hyaline Casts,Urine 2 /lpf (0-2); Ketones,Urine 1+ (Negative); Leukocyte Esterase,Urine Moderate (Negative); Mucus,Urine Rare /hpf; Nitrite,Urine Negative (Negative); Protein,Urine 1+ (Negative); RBC,Urine >182 /hpf (0-5); Specific Gravity,Urine 1.029 (1.001-1.035); Squamous Epithelial Cell,Urine 4 /hpf (0-4); WBC,Urine 133 /hpf (0-5)
[2024-09-09 19:02] LABS: INR 1.1 (<1.2); Partial Thromboplastin Time 22.2 sec (22.0-30.0); Prothrombin Time 11.8 sec (10.0-12.5)
[2024-09-09 19:08] LABS: ALT 15 U/L (4-34); AST 27 U/L (14-36); African American GFR (CKD) 82 (>60 ml/min/1.73 sqM); Albumin 3.9 g/dL (3.5-5.0); Alkaline Phosphatase 61 U/L (38-126); Amylase 52 U/L (30-110); Anion Gap 8 mmol/L; Blood Urea Nitrogen 20 mg/dL (7-17); Calcium 9.9 mg/dL (8.4-10.2); Carbon Dioxide 32 mmol/L (22-30); Chloride 99 mmol/L (98-107); Glucose 97 mg/dL (74-99); Lipase 64 U/L (23-300); Non-African American GFR(CKD) 71 (>60 ml/min/1.73 sqM); Potassium 3.8 mmol/L (3.5-5.1); Sodium 139 mmol/L (137-145); Total Bilirubin 0.6 mg/dL (0.2-1.3); Total Protein 6.4 g/dL (6.3-8.2)
[2024-09-09 19:11] LABS: Basophils % (A) 0 %; Eosinophils # (A) 0.1 k/uL (0-0.7); Eosinophils % (A) 1 %; HCT 39.1 % (34.0-46.0); HGB 12.8 gm/dL (11.4-16.0); Hypochromasia Slight; Lymphocytes # (A) 0.9 k/uL (1.0-4.8); Lymphocytes % (A) 10 %; MCH 27.7 pg (25.0-35.0); MCHC 32.6 g/dL (31.0-37.0); Mean Platelet Volume 8.1; Monocytes # (A) 0.7 k/uL (0-1.0); Monocytes % (A) 8 %; Neutrophils # (A) 6.4 k/uL (1.3-7.7); Neutrophils % (A) 78 %; Platelet Count 194 k/uL (150-450); RBC 4.61 m/uL (3.80-5.40); RDW 15.6 % (11.5-15.5); WBC 8.2 k/uL (3.8-10.6)
[2024-09-09 19:15] LABS: MCV 84.9 fL (80.0-100.0)
--- NOTE | 2024-09-09 20:30 | CT ---
EXAMINATION TYPE: CT abdomen pelvis w con DATE OF EXAM: 09/09/2024 7:34 PM COMPARISON: None. CLINICAL INDICATION: Female, 84 years old with history of abdominal pain, abdominal pain, TECHNIQUE: Axial images were obtained from above the diaphragm to the pubic rami in the axial plane a t 5 mm thick sections. Reconstructed images are reviewed on the computer in the coronal plane. CONTRAST: 100 mL of Isovue 300. Study performed without Oral Contrast DLP: 1846.8 mGycm, Automated exposure control for dose reduction was used. FINDINGS: Limited CT sections are obtained the lung bases. The lung bases are clear. CT ABDOMEN: Liver: Normal Spleen: Normal Pancreas: Normal Adrenal glands: The adrenal glands are normal. Gallbladder: Normal Kidneys: No masses are evident. No hydronephrosis is present. No cysts are present. No renal stone s are evident. Aorta: Vascular calcification is within the aorta. Inferior vena cava: Normal. CT PELVIS: Loops of bowel within the abdomen and pelvis are normal. This study is without oral contrast limi ting bowel evaluation. Couple of small diverticuli are within the sigmoid colon. No adjacent inflamma tory changes to suggest acute diverticulitis. Appendix: Not visualized. No dilated tubular structure or inflammatory changes evident. Urinary bladder: Normal. Genitourinary structures: Uterus and ovaries are not identified Osseous structures: No suspicious lytic or sclerotic lesions. Degenerative changes are through the cindy mbar spine facets. IMPRESSION: 1. No acute abnormality CT abdomen and pelvis. No abnormality to account for abdominal pain 2. Minimal diverticulosis without acute diverticulitis. [facility], Workstation: [facility], 09/09/2024 8:27 PM
[2024-09-09] MEDS: AZTREONAM 1 GM in SODIUM CHLORIDE 0.9% 50 ML IVPB STA (20:57)
[2024-09-09] MEDS ORDERED: CYCLOBENZAPRINE 10 MG TAB PO PRN (21:33)
[2024-09-09] MEDS ORDERED: ACETAMINOPHEN TAB 325 MG TAB PO PRN (21:33)
[2024-09-09] MEDS: MORPHINE SULFATE 4 MG/ML SYRINGE IVP STA (21:36)
[2024-09-09] MEDS ORDERED: POTASSIUM CHLORIDE ER 10 MEQ TAB.ER.PRT PO PRN (21:39)
[2024-09-09] MEDS ORDERED: MELATONIN 5 MG TABLET PO PRN (21:39)
[2024-09-09] MEDS ORDERED: FUROSEMIDE 20 MG TAB PO PRN (21:39)
[2024-09-09] MEDS: APIXABAN 5 MG TAB PO SCH (22:14)
[2024-09-09] MEDS: QUEtiapine 25 MG TAB PO STA (22:14)
[2024-09-09] MEDS ORDERED: NALOXONE 0.4 MG/ML 1 ML VIAL IV PRN (22:44)
[2024-09-09] MEDS ORDERED: ALPRAZolam 0.25 MG TAB PO PRN (23:00)
[2024-09-10 00:39] LABS: Glucose,Whole Blood 104 mg/dL (70-110)
[2024-09-10] MEDS: AZTREONAM 1 GM in SODIUM CHLORIDE 0.9% 50 ML IVPB SCH (04:29)
[2024-09-10] MEDS: HYDROcodone/APAP 7.5-325MG 1 EACH TAB PO SCH (04:30)
[2024-09-10 05:42] LABS: Glucose,Whole Blood 109 mg/dL (70-110)
[2024-09-10] MEDS ORDERED: NON FORMULARY DRUG (Ubidecarenone [Coenzyme Q10] 200 MG Capsule) PO SCH (09:00)
[2024-09-10] MEDS ORDERED: AZO D MANNOSE PO SCH (09:00)
[2024-09-10] MEDS: PREGABALIN 100 MG CAP PO SCH (09:10)
[2024-09-10] MEDS: LACTOBACILLUS ACIDOPHILUS/PECT 1 EACH CAPSULE PO SCH (09:11)
[2024-09-10] MEDS: LOSARTAN 50 MG TAB PO SCH (09:11)
[2024-09-10] MEDS: CHOLECALCIFEROL 25 MCG (1000 IU) TABLET PO SCH (09:12)
[2024-09-10] MEDS: DULoxetine HCL 60 MG CAPSULE.DR PO SCH (09:12)
[2024-09-10] MEDS: allopurinoL 100 MG TAB PO SCH (09:13)
[2024-09-10] MEDS: EZETIMIBE 10 MG TAB PO SCH (09:13)
[2024-09-10] MEDS: FAMOTIDINE 20 MG TAB PO SCH (09:13)
[2024-09-10] MEDS: TRIAMCINOLONE ACET 0.1% ORAL PASTE 5 GM TUBE MUCOUS MEM SCH (11:14)
[2024-09-10] MEDS: VERAPAMIL SR 120 MG TABLET.ER PO SCH (11:15)
[2024-09-10] MEDS: FOLIC ACID-VIT B COMPLEX-VIT C 1 CAP PO SCH (11:15)
[2024-09-10] MEDS: CHOLESTYRAMINE (WITH SUGAR) 4 GM PACKET PO SCH (11:15)
[2024-09-10] MEDS: VIT A,C & E-LUTEIN-MINERALS 1 EACH TAB PO SCH (11:16)
[2024-09-10] MEDS: hydroCHLOROthiazide 25 MG TAB PO SCH (11:16)
[2024-09-10] MEDS: ZINC OXIDE 20% OINT 28.4 GM TUBE TOPICAL PRN (11:17)
[2024-09-10 12:11] LABS: Glucose,Whole Blood 105 mg/dL (70-110)
--- NOTE | 2024-09-10 14:12 | P.HPIM ---
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 Jagruti casey was brought into the emergency department at [facility] yesterday with increased abdominal pain, apparently the patient was recently hospitalized about a month ago at [facility] with recurrent ESBL multidrug-resistant UTI and at that time she did receive a midline and did receive Invanz 1 g piggyback every 24 hours, patient was recently hospitalized at [facility] for recurrent urinary tract infection, she was treated with Invanz, and she was sent home, apparently the patient was brought into the emergency department yesterday because of minimal redness to the abdominal wall from the side where she was getting her insulin injection, as a matter fact it appears like that she has a significant amount of pressure ulcer in that area due to the brief that she is waiting for her urinary incontinence, more than any thing else minimal erythema around that area, because the patient multiple allergies and because of the patient presentation with minimal mental status changes she was admitted to the hospital for possible abdominal wall cellulitis, she was started on Azactam 1 g of piggyback every 8 hours, she was admitted to the hospital she was started on zinc oxide 20% to be applied twice every day to the affected area, infectious disease consultation was obtained, if the patient is doing fine over the next 24 hours she can be discharged home with follow-up with me as an outpatient. REVIEW OF SYSTEMS Constitutional: No fever, no chills, no night sweats. No weight change. positive for weakness, fatigue or lethargy. No daytime sleepiness. HEENT: No headache. No blurred vision or double vision, no loss of vision. Chronic loss of Hearing, no ringing in the ears, no dizziness. No nasal drainage or congestion. No epistaxis. No sore throat. Lungs: No shortness of breath, cough, no sputum production. No wheezing. Cardiovascular: No chest pain, no lower extremity edema. No palpitations. No paroxysmal nocturnal dyspnea. No orthopnea. No lightheadedness or dizziness. No syncopal episodes. Abdominal: No abdominal pain. No nausea, vomiting. No diarrhea. No constipation. No bloody or tarry stools. No loss of appetite. Genitourinary: no dysuria, positive for frequency, no urgency. No urinary retention. Musculoskeletal: No myalgias. Noted muscle weakness, noted gait dysfunction, fall at home. No back pain. No neck pain. Right knee discomfort Integumentary: . No rash or pruritus. No unusual bruising. No change in hair or nails. Positive for a sore spot in the abdominal wall that appears like a pressure sore with minimal erythema with a scab. Neurologic: No aphasia. No facial droop. No change in mentation. No head injury. No headache. No paralysis. No paresthesia. Psychiatric: Mild depression. No anxiety. No mood swings.no mental status changes Endocrine: No abnormal blood sugars. No weight change. No excessive sweating or thirst. No cold intolerance. 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 SURGICAL HISTORY Cataract surgery left 20/20 Tonsillectomy and adenoidectomy Laminectomy with fusion of L1-S1 Lumbar discitis post-hardware removal SI joint fusion 2 Spinal cord stimulator Seroma on the back post-wound VAC line colonoscopy with polyps 2018. SOCIAL HISTORY Patient is a lifelong nonsmoker, no alcohol abuse, no illicit drug use. FAMILY HISTORY Father at age 80. Mother at the age of 86 from myocardial infarction had history of hypertension, hyperlipidemia. Patient has one brother with no major medical problems and one sister with no major medical problems. Patient has 3 daughters with no major medical problems. PHYSICAL EXAMINATION Gen: This is an 84-year-old obese female no distress. HEENT: Head is atraumatic, normocephalic. Pupils equal, round. Sclerae is anicteric. NECK: Supple. No JVD. No lymphadenopathy. No thyromegaly. LUNGS: Clear to auscultation. No wheezes or rhonchi. No intercostal retractions. HEART: First heart sound is depressed, second heart sound is normal, 2/6 systolic ejection murmur at the left sternal border. ABDOMEN: Soft, mild tenderness to the epigastric area, no rebound or guarding positive bowel sounds EXTREMITIES: +1 pedal edema. No calf tenderness, DP+2 bilaterally. NEUROLOGICAL: Patient is awake, alert and oriented to person and place, CN II- XII are grossly intact muscle power 4/5 in bilateral upper and lower extremities. ASSESSMENT AND PLAN 1. Abdominal wall pressure ulcer with minimal cellulitis. Continue zinc oxide 20% to be applied twice every day, continue Azactam 1 g piggyback every 8 hours for 24 hours, then the patient can be switched to oral antibiotic and sent home tomorrow morning. 2. Paroxysmal Atrial fibrillation. Continue Eliquis 5 mg orally twice every day. Continue verapamil 120 mg daily. 3. Hypertension and hypertensive cardiovascular disease. Continue patient on hydrochlorothiazide 25 mg daily, losartan 100 mg daily, and verapamil 120 mg daily. Monitor the patient blood pressure very closely. 5. Hyperlipidemia. we will continue Zetia 10 mg po daily patient is not able to tolerate statin at this point in time. She can be offered Repatha as an outpatient. 6. Diabetes mellitus type 2. Continue patient on add NovoLog scale before meals and at bedtime, we will discontinue Farxiga we will continue with Ozempic 1 mg subcutaneously every week, start the patient on sliding scale insulin. 7. Diabetic polyneuropathy. Continue Duloxetin 60 mg po daily continue pregabalin 200 mg orally twice every day 8. 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 Continue pregabalin 200 mg orally twice every day. Continue patient on current pain management as well. 9. Idiopathic gout. Continue allopurinol 100 mg daily. 10. Obstructive sleep apnea. Continue CPAP. 11. GI prophylaxis and gastroesophageal reflux disease. Continue Protonix 40 mg po daily 12. DVT prophylaxis. Continue Eliquis 5 mg orally twice every day. 14. Diabetic polyneuropathy. Continue pregabalin 200 mg orally twice every day. 15. Observation. 16. Likely home tomorrow morning. Past Medical History Past Medical History: Atrial Fibrillation, CVA/TIA, Diabetes Mellitus, Fibromyalgia, GERD/Reflux, Hypertension, Pneumonia, Pulmonary Embolus (PE), Rheumatoid Arthritis (RA) Additional Past Medical History / Comment(s): recurrent UTIs, cataracts, recent TIA, hx. of PE. History of Any Multi-Drug Resistant Organisms: None Reported Date of last positivie culture/infection: 12/10/24 MDRO Source:: urine Past Surgical History: Back Surgery, Hysterectomy, Joint Replacement, Orthopedic Surgery Additional Past Surgical History / Comment(s): 5 back surgery since 2014, total hysterectomy,R knee replacement Past Anesthesia/Blood Transfusion Reactions: No Reported Reaction Past Psychological History: No Psychological Hx Reported Smoking Status: Never smoker Past Alcohol Use History: Rare Past Drug Use History: None Reported - Past Family History Mother Family Medical History: CVA/TIA, Hyperlipidemia, Hypertension, Myocardial Infarction ([place]) Medications and Allergies Home Medications Medication Instructions Recorded Confirmed Type allopurinoL [Zyloprim] 100 mg PO DAILY 09/21/20 09/09/24 History Cholecalciferol [Vitamin D3 (25 25 mcg PO DAILY 11/04/22 09/09/24 History Mcg = 1000 Iu)] Losartan Potassium [Cozaar] 100 mg PO DAILY 11/04/22 09/09/24 History Vitamin B Complex 1 cap PO DAILY 11/04/22 09/09/24 History Apixaban [Eliquis] 5 mg PO BID #60 tab 11/13/22 09/09/24 Rx DULoxetine HCL [Cymbalta] 60 mg PO DAILY 01/03/23 09/09/24 History Multivit-Min/Iron/Folic/Lutein 1 tab PO DAILY 01/03/23 09/09/24 History [Centrum Silver Women Tablet] Ezetimibe [Zetia] 10 mg PO DAILY 07/17/23 09/09/24 History Furosemide [Lasix] 20 mg PO DAILY PRN 07/17/23 09/09/24 History Acetaminophen Tab [Tylenol] 650 mg PO Q6H PRN 09/12/23 09/09/24 History Azo D-Mannose 500mg 2,000 mg PO DAILY 09/12/23 09/09/24 History L.acidoph,Paracasei, B.lactis 1 cap PO DAILY 09/12/23 09/09/24 History [Probiotic] Melatonin 10 mg PO HS PRN 09/12/23 09/09/24 History Potassium Chloride [Klor-Con M10] 10 meq PO DAILY PRN 09/12/23 09/09/24 History Ubidecarenone [Coenzyme Q10] 200 mg PO DAILY 09/12/23 09/09/24 History hydroCHLOROthiazide [Hydrodiuril] 25 mg PO DAILY 09/12/23 09/09/24 History Cyclobenzaprine [Flexeril] 10 mg PO TID PRN 30 Days #90 tab 06/07/24 09/09/24 Rx DULoxetine HCL [Cymbalta] 30 mg PO HS 06/22/24 09/09/24 History Semaglutide [Ozempic] 1 mg SQ TH 07/21/24 09/09/24 History Verapamil HCl [Calan] 120 mg PO DAILY 07/21/24 09/09/24 History Pregabalin [Lyrica] 200 mg PO BID #6 cap 07/26/24 09/09/24 Rx Triamcinolone 0.1% Paste [Oralone 1 applic MUCOUS MEM PC-BID 4 Days 07/26/24 09/09/24 Rx 0.1% Paste] each Cholestyramine (with Sugar) 4 gm PO DAILY #0 packet 07/27/24 09/09/24 Rx [Questran Packet] HYDROcodone/APAP 7.5-325MG [[place] 1 tab PO TID 08/19/24 09/09/24 History 7.5-325] Allergies Allergy/AdvReac Type Severity Reaction Status Date / Time cephalexin [From Keflex] Allergy Rash/Hives Verified 09/09/24 21:14 clindamycin Allergy Rash/Hives Verified 09/09/24 21:14 Penicillins Allergy Unknown Verified 09/09/24 21:14 oxybutynin [From Ditropan] AdvReac Hallucinati Verified 09/09/24 21:14 ons Physical Exam Vitals: Vital Signs Temp Pulse Pulse Resp BP BP Pulse Ox 09/10/24 07:00 98.3 F 84 16 125/76 95 09/10/24 00:30 97.9 F 78 18 167/77 98 09/10/24 00:15 78 09/09/24 23:33 98.2 F 76 16 137/80 94 L 09/09/24 20:58 74 20 145/88 96 09/09/24 17:41 20 09/09/24 16:42 98.4 F 104 H 1 L 122/71 93 L Intake and Output 09/09/24 09/10/24 09/10/24 22:59 06:59 14:59 Intake Total 118 Output Total 300 Balance -300 118 Intake: Oral 118 Output: Urine 300 Other: Voiding Method External Catheter Weight 64.41 kg 64.41 kg Results CBC & Chem 7: 09/09/24 18:19 09/09/24 18:19 Labs: Abnormal Lab Results - Last 24 Hours (Table) 09/09/24 09/09/24 09/09/24 Range/Units 18:19 18:19 18:19 RDW 15.6 H (11.5-15.5) % Lymphocytes # 0.9 L (1.0-4.8) k/uL Carbon Dioxide 32 H (22-30) mmol/L BUN 20 H (7-17) mg/dL Urine Appearance Cloudy H (Clear) Urine Protein 1+ H (Negative) Urine Ketones 1+ H (Negative) Urine Blood Moderate H (Negative) Ur Leukocyte Esterase Moderate H (Negative) Urine RBC >182 H (0-5) /hpf Urine WBC 133 H (0-5) /hpf Urine Bacteria Many H (None) /hpf Urine Mucus Rare H (None) /hpf Thrombosis Risk Factor Assmnt - Choose All That Apply Any of the Below Risk Factors Present?: Yes Each Factor Represents 1 point: Obesity (BMI >25) Other Risk Factors: Yes Each Risk Factor Represents 3 Points: Age 75 years or older, History of DVT/PE Thrombosis Risk Factor Assessment Total Risk Factor Score: 7 Thrombosis Risk Factor Assessment Level: High Risk
[2024-09-10 17:14] LABS: Glucose,Whole Blood 116 mg/dL (70-110)
[2024-09-10 20:12] LABS: Glucose,Whole Blood 163 mg/dL (70-110)
[2024-09-10] MEDS: DULoxetine HCL 30 MG CAPSULE.DR PO SCH (20:21)
[2024-09-10] MEDS: ZINC OXIDE 20% OINT 28.4 GM TUBE TOPICAL SCH (20:21)
[2024-09-10] MEDS ORDERED: VANCOMYCIN IV PER PHARMACY 1 EACH MISC MISCELLANE PRN (21:30)
--- NOTE | 2024-09-10 21:30 | P.CONS ---
History of Present Illness - Reason for Consult Consult date: 09/10/24 Abdominal wall cellulitis Requesting physician: Yokasta Haider - Chief Complaint Abdominal pain x few days - History of Present Illness Patient is a 84-year-old female with a past medical history significant for hypertension hyperlipidemia type 2 diabetes mellitus paroxysmal atrial fibrillation history of recurrent UTI presenting to the hospital for evaluation of increasing abdominal pain and also noticed having redness to abdominal wall, no history of trauma trauma patient did have some superficial ulceration but not very clear how it started, patient was lethargic not with good historian to tell me exactly how deep the pain is adversely intensity or an y drainage from it on presentation to the hospital patient was afebrile and no fever have been recorded subsequently patient was mildly tachycardic but not hypotensive or hypoxic no need for supplemental oxygen patient did have white count of 8.2 creatinine 0.78 electrolytes normal liver enzymes are normal urine has been positive patient did have abdominal pelvis CT did not show any acute findings blood urine culture have been obtained patient was started on Azactam because of her multiple antibiotic allergies infectious disease was consulted for abdominal wall cellulitis most information has been obtained from review the chart and the patient was not adequate historian today Review of Systems Positive points has been mentioned in HPI complete review could not be obtained because of his underlying mental status Past Medical History Past Medical History: Atrial Fibrillation, CVA/TIA, Diabetes Mellitus, Fibromyalgia, GERD/Reflux, Hypertension, Pneumonia, Pulmonary Embolus (PE), Rheumatoid Arthritis (RA) Additional Past Medical History / Comment(s): recurrent UTIs, cataracts, recent TIA, hx. of PE. History of Any Multi-Drug Resistant Organisms: None Reported Year Discovered:: 07/20/24 MDRO Source:: urine Past Surgical History: Back Surgery, Hysterectomy, Joint Replacement, Orthopedic Surgery Additional Past Surgical History / Comment(s): 5 back surgery since 2014, total hysterectomy,R knee replacement Past Anesthesia/Blood Transfusion Reactions: No Reported Reaction Past Psychological History: No Psychological Hx Reported Smoking Status: Never smoker Past Alcohol Use History: Rare Past Drug Use History: None Reported - Past Family History Mother Family Medical History: CVA/TIA, Hyperlipidemia, Hypertension, Myocardial Infarction ([place]) Medications and Allergies Home Medications Medication Instructions Recorded Confirmed Type allopurinoL [Zyloprim] 100 mg PO DAILY 09/21/20 09/09/24 History Cholecalciferol [Vitamin D3 (25 25 mcg PO DAILY 11/04/22 09/09/24 History Mcg = 1000 Iu)] Losartan Potassium [Cozaar] 100 mg PO DAILY 11/04/22 09/09/24 History Vitamin B Complex 1 cap PO DAILY 11/04/22 09/09/24 History Apixaban [Eliquis] 5 mg PO BID #60 tab 11/13/22 09/09/24 Rx DULoxetine HCL [Cymbalta] 60 mg PO DAILY 01/03/23 09/09/24 History Multivit-Min/Iron/Folic/Lutein 1 tab PO DAILY 01/03/23 09/09/24 History [Centrum Silver Women Tablet] Ezetimibe [Zetia] 10 mg PO DAILY 07/17/23 09/09/24 History Furosemide [Lasix] 20 mg PO DAILY PRN 07/17/23 09/09/24 History Acetaminophen Tab [Tylenol] 650 mg PO Q6H PRN 09/12/23 09/09/24 History Azo D-Mannose 500mg 2,000 mg PO DAILY 09/12/23 09/09/24 History L.acidoph,Paracasei, B.lactis 1 cap PO DAILY 09/12/23 09/09/24 History [Probiotic] Melatonin 10 mg PO HS PRN 09/12/23 09/09/24 History Potassium Chloride [Klor-Con M10] 10 meq PO DAILY PRN 09/12/23 09/09/24 History Ubidecarenone [Coenzyme Q10] 200 mg PO DAILY 09/12/23 09/09/24 History hydroCHLOROthiazide [Hydrodiuril] 25 mg PO DAILY 09/12/23 09/09/24 History Cyclobenzaprine [Flexeril] 10 mg PO TID PRN 30 Days #90 tab 06/07/24 09/09/24 Rx DULoxetine HCL [Cymbalta] 30 mg PO HS 06/22/24 09/09/24 History Semaglutide [Ozempic] 1 mg SQ TH 07/21/24 09/09/24 History Verapamil HCl [Calan] 120 mg PO DAILY 07/21/24 09/09/24 History Pregabalin [Lyrica] 200 mg PO BID #6 cap 07/26/24 09/09/24 Rx Triamcinolone 0.1% Paste [Oralone 1 applic MUCOUS MEM PC-BID 4 Days 07/26/24 0 09/09/24 Rx 0.1% Paste] each Cholestyramine (with Sugar) 4 gm PO DAILY #0 packet 07/27/24 09/09/24 Rx [Questran Packet] HYDROcodone/APAP 7.5-325MG [[place] 1 tab PO TID 08/19/24 09/09/24 History 7.5-325] Allergies Allergy/AdvReac Type Severity Reaction Status Date / Time cephalexin [From Keflex] Allergy Rash/Hives Verified 09/09/24 21:14 clindamycin Allergy Rash/Hives Verified 09/09/24 21:14 Penicillins Allergy Unknown Verified 09/09/24 21:14 oxybutynin [From Ditropan] AdvReac Hallucinati Verified 09/09/24 21:14 ons Physical Exam Vitals: Vital Signs Temp Pulse Pulse Resp BP BP Pulse Ox 09/10/24 07:00 98.3 F 84 16 125/76 95 09/10/24 00:30 97.9 F 78 18 167/77 98 09/10/24 00:15 78 09/09/24 23:33 98.2 F 76 16 137/80 94 L 09/09/24 20:58 74 20 145/88 96 09/09/24 17:41 20 09/09/24 16:42 98.4 F 104 H 1 L 122/71 93 L Intake and Output 09/09/24 09/10/24 09/10/24 22:59 06:59 14:59 Intake Total 118 Output Total 300 Balance -300 118 Intake: Oral 118 Output: Urine 300 Other: Voiding Method External Catheter Weight 64.41 kg 64.41 kg GENERAL DESCRIPTION: Elderly female lying in bed, no distress. No tachypnea or accessory muscle of respiration use. HEENT: Shows Pallor , no scleral icterus. Oral mucous membrane is dry. NECK: Trachea central, no thyromegaly. LUNGS: Unlabored breathing. Clear to auscultation anteriorly. No wheeze or crackle. HEART: S1, S2, regular rate and rhythm. No loud murmur ABDOMEN: Soft, lower abdominal wall did have a 2 superficial ulceration with some slough tissue no foul-smelling drainage was noticed EXTREMITIES: No edema of feet. SKIN: No rash, no masses palpable. NEUROLOGICAL: The patient is lethargic but arousable orientation could not determine Results CBC & Chem 7: 09/09/24 18:19 09/09/24 18:19 Labs: Abnormal Lab Results - Last 24 Hours (Table) 09/09/24 09/09/24 09/09/24 Range/Units 18:19 18:19 18:19 RDW 15.6 H (11.5-15.5) % Lymphocytes # 0.9 L (1.0-4.8) k/uL Carbon Dioxide 32 H (22-30) mmol/L BUN 20 H (7-17) mg/dL Urine Appearance Cloudy H (Clear) Urine Protein 1+ H (Negative) Urine Ketones 1+ H (Negative) Urine Blood Moderate H (Negative) Ur Leukocyte Esterase Moderate H (Negative) Urine RBC >182 H (0-5) /hpf Urine WBC 133 H (0-5) /hpf Urine Bacteria Many H (None) /hpf Urine Mucus Rare H (None) /hpf Assessment and Plan (1) Open abdominal wall wound Current Visit: Yes Status: Acute Code(s): S31.109A - UNSP OPN WND ABD WALL, UNSP Q W/O PENET PERIT CAV, INIT SNOMED Code(s): 346023487 (2) Abdominal wall cellulitis Current Visit: Yes Status: Acute Code(s): L03.311 - CELLULITIS OF ABDOMINAL WALL SNOMED Code(s): 45120658 (3) Allergy to multiple antibiotics Current Visit: No Status: Acute Code(s): Z88.1 - ALLERGY STATUS TO OTHER ANTIBIOTIC AGENTS SNOMED Code(s): 225364860 Plan: 1patient did have a abdominal pain in this patient who did have a superficial ulceration lower abdominal wall and possible cellulitis from a insulin pump site and will need to cover for the gram-positive skin joe to the likely pathogen and less likely gram-negative infection. 2patient with multiple antibiotic ALLERGIES that would limit the number of antibiotic safe to use 3-we will obtain local wound culture that will guide further antibiotic therapy 4-local wound care with Medihoney followed by moist dressing change daily 5-we will add vancomycin pharmacy to dose while waiting for the culture to finalize We will follow on clinical condition and cultures to further adjust medication if needed Thank you for this consultation we will follow the patient along with you Dictation was produced using [employer] dictation software. please excuse any grammatical, word or spelling errors. Time with Patient: Greater than 30
[2024-09-10] MEDS: VANCOMYCIN 1,000 MG in SODIUM CHLORIDE 0.9% 250 ML IVPB ONE (22:05)
[2024-09-11 05:21] LABS: Glucose,Whole Blood 113 mg/dL (70-110)
[2024-09-11] MEDS: FAMOTIDINE 20 MG TAB PO SCH (09:43)
--- NOTE | 2024-09-11 11:49 | P.PN ---
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 Patient was brought into the emergency department at [facility] yesterday with increased abdominal pain, apparently the patient was recently hospitalized about a month ago at [facility] with recurrent ESBL multidrug-resistant UTI and at that time she did receive a midline and did receive Invanz 1 g piggyback every 24 hours, patient was recently hospitalized at [facility] for recurrent urinary tract infection, she was treated with Invanz, and she was sent home, apparently the patient was brought into the emergency department yesterday because of minimal redness to the abdominal wall from the side where she was getting her insulin injection, as a matter fact it appears like that she has a significant amount of pressure ulcer in that area due to the brief that she is waiting for her urinary incontinence, more than any thing else minimal erythema around that area, because the patient multiple allergies and because of the patient presentation with minimal mental status changes she was admitted to the hospital for possible abdominal wall cellulitis, she was started on Azactam 1 g of piggyback every 8 hours, she was admitted to the hospital she was started on zinc oxide 20% to be applied twice every day to the affected area, infectious disease consultation was obtained, if the patient is doing fine over the next 24 hours she can be discharged home with follow-up with me as an outpatient. 2: Patient is laying down in bed she is feeling better today, she denies any fever or chills at this time, she was seen yesterday by infectious disease who recommended to add vancomycin to cover the cellulitis of the abdominal wall along with the Azactam 1 g IV piggyback every 8 hours, urine culture showed evidence of gram-negative bacilli, at this point in time we will switch the patient to inpatient as there is multiple cofactors that affecting her situation, her metabolic encephalopathy is a lot better today, there is may be an element of urinary tract infection with SIRS as well, due to gram-negative bacilli, will continue with current treatment plan until the final result of the cultures are back. REVIEW OF SYSTEMS Constitutional: No fever, no chills, no night sweats. No weight change. positive for weakness, fatigue or lethargy. No daytime sleepiness. HEENT: No headache. No blurred vision or double vision, no loss of vision. Chronic loss of Hearing, no ringing in the ears, no dizziness. No nasal drainage or congestion. No epistaxis. No sore throat. Lungs: No shortness of breath, cough, no sputum production. No wheezing. Cardiovascular: No chest pain, no lower extremity edema. No palpitations. No paroxysmal nocturnal dyspnea. No orthopnea. No lightheadedness or dizziness. No syncopal episodes. Abdominal: No abdominal pain. No nausea, vomiting. No diarrhea. No constipation. No bloody or tarry stools. No loss of appetite. Genitourinary: no dysuria, positive for frequency, no urgency. No urinary r etention. Musculoskeletal: No myalgias. Noted muscle weakness, noted gait dysfunction, fall at home. No back pain. No neck pain. Right knee discomfort Integumentary: . No rash or pruritus. No unusual bruising. No change in hair or nails. Positive for a sore spot in the abdominal wall that appears like a pressure sore with minimal erythema with a scab. Neurologic: No aphasia. No facial droop. No change in mentation. No head injury. No headache. No paralysis. No paresthesia. Psychiatric: Mild depression. No anxiety. No mood swings.no mental status changes Endocrine: No abnormal blood sugars. No weight change. No excessive sweating or thirst. No cold intolerance. PHYSICAL EXAMINATION Gen: This is an 84-year-old obese female no distress. HEENT: Head is atraumatic, normocephalic. Pupils equal, round. Sclerae is anicteric. NECK: Supple. No JVD. No lymphadenopathy. No thyromegaly. LUNGS: Clear to auscultation. No wheezes or rhonchi. No intercostal retractions. HEART: First heart sound is depressed, second heart sound is normal, 2/6 systolic ejection murmur at the left sternal border. ABDOMEN: Soft, mild tenderness to the epigastric area, no rebound or guarding positive bowel sounds EXTREMITIES: +1 pedal edema. No calf tenderness, DP+2 bilaterally. NEUROLOGICAL: Patient is awake, alert and oriented to person and place, CN II- XII are grossly intact muscle power 4/5 in bilateral upper and lower extremities. ASSESSMENT AND PLAN 1. Abdominal wall pressure ulcer with minimal cellulitis. Continue patient on vancomycin with pharmacy to dose peak and trough, continue Azactam 1 g piggyback every 2 hours, blood cultures so far negative. Infectious disease consultation appreciated 2. Gram-negative bacilli with SIRS. Continue Azactam 1 g piggyback every 8 hours until the final result of the culture. 3. Metabolic encephalopathy present on admission due to SIRS. patient is back to baseline 4. Paroxysmal Atrial fibrillation. Continue Eliquis 5 mg orally twice every day. Continue verapamil 120 mg daily. 5. Hypertension and hypertensive cardiovascular disease. Continue patient on hydrochlorothiazide 25 mg daily, losartan 100 mg daily, and verapamil 120 mg daily. Monitor the patient blood pressure very closely. 6. Hyperlipidemia. we will continue Zetia 10 mg po daily patient is not able to tolerate statin at this point in time. She can be offered Repatha as an outpatient. 7. Diabetes mellitus type 2. Continue patient on add NovoLog scale before meals and at bedtime, we will discontinue Farxiga we will continue with Ozempic 1 mg subcutaneously every week, start the patient on sliding scale insulin. 8. Diabetic polyneuropathy. Continue Duloxetin 60 mg po daily continue pregabalin 200 mg orally twice every day 9. 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 Continue pregabalin 200 mg orally twice every day. Continue patient on current pain management as well. 10. Idiopathic gout. Continue allopurinol 100 mg daily. 11. Obstructive sleep apnea. Continue CPAP. 12. GI prophylaxis and gastroesophageal reflux disease. Continue Protonix 40 mg po daily 13. DVT prophylaxis. Continue Eliquis 5 mg orally twice every day. 14. Diabetic polyneuropathy. Continue pregabalin 200 mg orally twice every day. 15. Physical therapy evaluation 16. student worker consultation for discharge planning. 17. Admit to inpatient. Estimated length of stay is 2 midnights Objective - Vital Signs Vital signs: Vital Signs Temp 98.1 F 09/11/24 07:00 Pulse 60 09/11/24 07:00 Resp 15 09/11/24 08:00 BP 104/61 09/11/24 07:00 Pulse Ox 92 L 09/11/24 07:00 FiO2 Intake & Output 09/10/24 09/11/24 09/11/24 18:59 06:59 18:59 Intake Total 236 180 Balance 236 180 Intake: Oral 236 180 Other: Voiding Method Diaper Diaper # Voids 3 2 # Bowel Movements 1 - Labs CBC & Chem 7: 09/09/24 18:19 09/09/24 18:19 Labs: Abnormal Lab Results - Last 24 Hours (Table) 09/10/24 09/10/24 09/11/24 Range/Units 17:13 20:09 05:19 POC Glucose (mg/dL) 116 H 163 H 113 H (70-110) mg/dL Microbiology - Last 24 Hours (Table) 09/09/24 18:19 Blood Culture - Preliminary Blood 09/09/24 18:19 Urine Culture - Preliminary Urine,Voided Gram Neg Bacilli
[2024-09-11 12:11] LABS: Glucose,Whole Blood 173 mg/dL (70-110)
[2024-09-11] MEDS ORDERED: DEXTROSE 50% SYRINGE 50 ML IVP PRN ×2 (12:58)
--- NOTE | 2024-09-11 16:46 | P.PN ---
Subjective Progress Note Date: 09/11/24 Principal diagnosis: Reason for follow-up is abdominal wall cellulitis and possible UTI Patient is a 84-year-old female with a past medical history significant for hypertension hyperlipidemia type 2 diabetes mellitus paroxysmal atrial fibrillation history of recurrent UTI presenting to the hospital for evaluation of increasing abdominal pain and also noticed having redness to abdominal wal has been diagnosed with abdominal cellulitis prompted this consultation. On today's evaluation that is 09/11/2024, patient is more awake and alert today did not have any fever and denies any chills, patient is breathing comfortably on room air, patient with no chest pain or cough patient mentioned abdominal pain slightly decreased no drainage no diarrhea. No new lab has been repeated today. Urine is growing gram-negative Objective - Vital Signs Vital signs: Vital Signs Temp 99.1 F 09/11/24 14:58 Pulse 70 09/11/24 14:58 Resp 18 09/11/24 14:58 BP 88/50 09/11/24 14:58 Pulse Ox 92 L 09/11/24 14:58 FiO2 Intake & Output 09/10/24 09/11/24 09/11/24 18:59 06:59 18:59 Intake Total 236 180 236 Balance 236 180 236 Intake: Oral 236 180 236 Other: Voiding Method Diaper Diaper # Voids 3 2 2 # Bowel Movements 1 - Exam GENERAL DESCRIPTION: Elderly female up in the chair in no distress RESPIRATORY SYSTEM: Unlabored breathing , decreased breath sounds at bases HEART: S1 S2 regular rate and rhythm , ABDOMEN: Soft , lower abdominal wound with minimal slough and redness no drainage EXTREMITIES: No edema feet - Labs CBC & Chem 7: 09/09/24 18:19 09/09/24 18:19 Labs: Abnormal Lab Results - Last 24 Hours (Table) 09/10/24 09/10/24 09/11/24 Range/Units 17:13 20:09 05:19 POC Glucose (mg/dL) 116 H 163 H 113 H (70-110) mg/dL 09/11/24 Range/Units 12:10 POC Glucose (mg/dL) 173 H (70-110) mg/dL Microbiology - Last 24 Hours (Table) 09/09/24 18:19 Blood Culture - Preliminary Blood 09/09/24 18:19 Urine Culture - Preliminary Urine,Voided Gram Neg Bacilli Assessment and Plan (1) Open abdominal wall wound Current Visit: Yes Status: Acute Code(s): S31.109A - UNSP OPN WND ABD WALL, UNSP Q W/O PENET PERIT CAV, INIT SNOMED Code(s): 879376280 (2) Abdominal wall cellulitis Current Visit: Yes Status: Acute Code(s): L03.311 - CELLULITIS OF ABDOMINAL WALL SNOMED Code(s): 30421634 (3) Allergy to multiple antibiotics Current Visit: No Status: Acute Code(s): Z88.1 - ALLERGY STATUS TO OTHER ANTIBIOTIC AGENTS SNOMED Code(s): 351744950 Plan: 1patient did have a abdominal pain in this patient who did have a superficial ulceration lower abdominal wall and possible cellulitis from a insulin pump site and will need to cover for the gram-positive skin joe to the likely pathogen and less likely gram-negative infection. 2patient with multiple antibiotic ALLERGIES that would limit the number of antibiotic safe to use 3- local wound culture has been obtained which are currently pending will advised [facility] followed by moist dressing change daily 4urine is growing gram-negative with ID sensitivity pending patient is currently on Azactam and vancomycin while waiting for the culture to finalize Dictation was produced using [employer] dictation software. please excuse any grammatical, word or spelling errors.
[2024-09-11 17:22] LABS: Glucose,Whole Blood 115 mg/dL (70-110)
[2024-09-11] MEDS: INSULIN ASPART (NovoLOG) 100 UNIT/ML VIAL SQ SCH (17:30)
[2024-09-11 20:24] LABS: Glucose,Whole Blood 143 mg/dL (70-110)
[2024-09-12] MEDS: VANCOMYCIN 1,000 MG in SODIUM CHLORIDE 0.9% 250 ML IVPB SCH (00:02)
[2024-09-12 05:26] LABS: Glucose,Whole Blood 123 mg/dL (70-110)
[2024-09-12 07:28] LABS: Basophils % (A) 1 %; Eosinophils # (A) 0.2 k/uL (0-0.7); Eosinophils % (A) 4 %; HCT 39.4 % (34.0-46.0); HGB 12.1 gm/dL (11.4-16.0); Hypochromasia Moderate; Lymphocytes # (A) 1.1 k/uL (1.0-4.8); Lymphocytes % (A) 21 %; MCHC 30.7 g/dL (31.0-37.0); MCV 88.2 fL (80.0-100.0); Mean Platelet Volume 8.1; Monocytes # (A) 0.5 k/uL (0-1.0); Monocytes % (A) 9 %; Neutrophils # (A) 3.3 k/uL (1.3-7.7); Neutrophils % (A) 64 %; Platelet Count 197 k/uL (150-450); RBC 4.47 m/uL (3.80-5.40); RDW 15.8 % (11.5-15.5); WBC 5.2 k/uL (3.8-10.6)
[2024-09-12 07:49] LABS: ALT 12 U/L (4-34); AST 18 U/L (14-36); African American GFR (CKD) 63 (>60 ml/min/1.73 sqM); Albumin 3.6 g/dL (3.5-5.0); Albumin/Globulin Ratio 1.5; Alkaline Phosphatase 50 U/L (38-126); Anion Gap 8 mmol/L; Blood Urea Nitrogen 24 mg/dL (7-17); Carbon Dioxide 30 mmol/L (22-30); Chloride 98 mmol/L (98-107); Globulin 2.4 g/dL; Glucose 110 mg/dL (74-99); Non-African American GFR(CKD) 55 (>60 ml/min/1.73 sqM); Potassium 4.6 mmol/L (3.5-5.1); Sodium 136 mmol/L (137-145); Total Bilirubin 0.4 mg/dL (0.2-1.3)
[2024-09-12 11:12] LABS: Glucose,Whole Blood 136 mg/dL (70-110)
--- NOTE | 2024-09-12 11:19 | P.PN ---
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 Patient was brought into the emergency department at [facility] yesterday with increased abdominal pain, apparently the patient was recently hospitalized about a month ago at [facility] with recurrent ESBL multidrug-resistant UTI and at that time she did receive a midline and did receive Invanz 1 g piggyback every 24 hours, patient was recently hospitalized at [facility] for recurrent urinary tract infection, she was treated with Invanz, and she was sent home, apparently the patient was brought into the emergency department yesterday because of minimal redness to the abdominal wall from the side where she was getting her insulin injection, as a matter fact it appears like that she has a significant amount of pressure ulcer in that area due to the brief that she is waiting for her urinary incontinence, more than any thing else minimal erythema around that area, because the patient multiple allergies and because of the patient presentation with minimal mental status changes she was admitted to the hospital for possible abdominal wall cellulitis, she was started on Azactam 1 g of piggyback every 8 hours, she was admitted to the hospital she was started on zinc oxide 20% to be applied twice every day to the affected area, infectious disease consultation was obtained, if the patient is doing fine over the next 24 hours she can be discharged home with follow-up with me as an outpatient. 2/1: Patient is laying down in bed she is feeling better today, she denies any fever or chills at this time, she was seen yesterday by infectious disease who recommended to add vancomycin to cover the cellulitis of the abdominal wall along with the Azactam 1 g IV piggyback every 8 hours, urine culture showed evidence of gram-negative bacilli, at this point in time we will switch the patient to inpatient as there is multiple cofactors that affecting her situation, her metabolic encephalopathy is a lot better today, there is may be an element of urinary tract infection with SIRS as well, due to gram-negative bacilli, will continue with current treatment plan until the final result of the cultures are back. 2/2: Patient is laying down in bed in no apparent distress, she has been treated for abdominal wall cellulitis with open wounds related to a pressure sores on abdominal wall, has been treated with Medihoney, she was started on vancomycin along with Azactam, urine culture showed E. coli, continue current treatment plan with vancomycin as well as Azactam for now due to the antibiotic allergies, patient did have presumptive MRSA in the abdominal wall, we will continue with that as well, infectious disease following, patient is switched to inpatient at this point in time. REVIEW OF SYSTEMS Constitutional: No fever, no chills, no night sweats. No weight change. positive for weakness, fatigue or lethargy. No daytime sleepiness. HEENT: No headache. No blurred vision or double vision, no loss of vision. Chronic loss of Hearing, no ringing in the ears, no dizziness. No nasal drainage or congestion. No epistaxis. No sore throat. Lungs: No shortness of breath, cough, no sputum production. No wheezing. Cardiovascular: No chest pain, no lower extremity edema. No palpitations. No paroxysmal nocturnal dyspnea. No orthopnea. No lightheadedness or dizziness. No syncopal episodes. Abdominal: No abdominal pain. No nausea, vomiting. No diarrhea. No constipation. No bloody or tarry stools. No loss of appetite. Genitourinary: no dysuria, positive for frequency, no urgency. No urinary retention. Musculoskeletal: No myalgias. Noted muscle weakness, noted gait dysfunction, fall at home. No back pain. No neck pain. Right knee discomfort Integumentary: . No rash or pruritus. No unusual bruising. No change in hair or nails. Positive for a sore spot in the abdominal wall that appears like a pressure sore with minimal erythema with a scab. Neurologic: No aphasia. No facial droop. No change in mentation. No head injury. No headache. No paralysis. No paresthesia. Psychiatric: Mild depression. No anxiety. No mood swings.no mental status changes Endocrine: No abnormal blood sugars. No weight change. No excessive sweating or thirst. No cold intolerance. PHYSICAL EXAMINATION Gen: This is an 84-year-old obese female no distress. HEENT: Head is atraumatic, normocephalic. Pupils equal, round. Sclerae is anicteric. NECK: Supple. No JVD. No lymphadenopathy. No thyromegaly. LUNGS: Clear to auscultation. No wheezes or rhonchi. No intercostal retractions. HEART: First heart sound is depressed, second heart sound is normal, 2/6 systolic ejection murmur at the left sternal border. ABDOMEN: Soft, mild tenderness to the epigastric area, no rebound or guarding positive bowel sounds EXTREMITIES: +1 pedal edema. No calf tenderness, DP+2 bilaterally. NEUROLOGICAL: Patient is awake, alert and oriented to person and place, CN II- XII are grossly intact muscle power 4/5 in bilateral upper and lower extremities. ASSESSMENT AND PLAN 1. Abdominal wall pressure ulcer with abdominal wall cellulitis with SIRS present on admission. Continue patient on vancomycin with pharmacy to dose peak and trough, continue Azactam 1 g piggyback every 2 hours, blood cultures so far negative. Infectious disease consultation appreciated this is presumptive MRSA. Continue with the [facility] as well as 2. E. coli with SIRS present on admission continue Azactam 1 g piggyback every 8 hours due to antibiotic allergies. 3. Metabolic encephalopathy present on admission due to SIRS. patient is back to baseline 4. Hypotensive episodes. Started the patient on IV fluid in the form of normal saline, discontinue hydrochlorothiazide, discontinue furosemide discontinue potassium supplement for now. Hold blood pressure medicine for systolic blood pressure less than or equal to 100 4. Paroxysmal Atrial fibrillation. Continue Eliquis 5 mg orally twice every day. Continue verapamil 120 mg daily. Hold for systolic blood pressure less than 100 5. Hypertension and hypertensive cardiovascular disease. discontinue hydrochlorothiazide, losartan 100 mg daily, and verapamil 120 mg daily. Monitor the patient blood pressure very closely. Hold for systolic blood pressure less than 100 6. Hyperlipidemia. we will continue Zetia 10 mg po daily patient is not able to tolerate statin at this point in time, 7. Diabetes mellitus type 2. Continue patient on add NovoLog scale before meals and at bedtime, monitor the patient blood glucose level before each meal and bedtime 8. Diabetic polyneuropathy. Continue Duloxetin 60 mg po daily continue pregabalin 200 mg orally twice every day 9. 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 Continue pregabalin 200 mg orally twice every day. Continue patient on current pain management as well. 10. Idiopathic gout. Continue allopurinol 100 mg daily. 11. Obstructive sleep apnea. Continue CPAP. 12. GI prophylaxis and gastroesophageal reflux disease. Continue Protonix 40 mg po daily 13. DVT prophylaxis. Continue Eliquis 5 mg orally twice every day. 14. Diabetic polyneuropathy. Continue pregabalin 200 mg orally twice every day. 15. Physical therapy evaluation 16. ironworker consultation for discharge planning. Objective - Vital Signs Vital signs: Vital Signs Temp 97.8 F 09/12/24 07:00 Pulse 78 09/12/24 07:00 Resp 15 09/12/24 08:00 BP 99/57 09/12/24 07:00 Pulse Ox 94 L 09/12/24 07:00 FiO2 Intake & Output 09/11/24 09/12/24 09/12/24 18:59 06:59 18:59 Intake Total 236 236 236 Balance 236 236 236 Intake: Oral 236 236 236 Other: Voiding Method Diaper Diaper Diaper # Voids 2 2 - Labs CBC & Chem 7: 09/12/24 06:50 09/12/24 06:50 Labs: Abnormal Lab Results - Last 24 Hours (Table) 09/11/24 09/11/24 09/11/24 Range/Units 12:10 17:20 20:22 MCHC (31.0-37.0) g/dL RDW (11.5-15.5) % Sodium (137-145) mmol/L BUN (7-17) mg/dL Glucose (74-99) mg/dL POC Glucose (mg/dL) 173 H 115 H 143 H (70-110) mg/dL Total Protein (6.3-8.2) g/dL 09/12/24 09/12/24 09/12/24 Range/Units 05:20 06:50 06:50 MCHC 30.7 L (31.0-37.0) g/dL RDW 15.8 H (11.5-15.5) % Sodium 136 L (137-145) mmol/L BUN 24 H (7-17) mg/dL Glucose 110 H (74-99) mg/dL POC Glucose (mg/dL) 123 H (70-110) mg/dL Total Protein 6.0 L (6.3-8.2) g/dL Microbiology - Last 24 Hours (Table) 09/09/24 18:19 Urine Culture - Final Urine,Voided Escherichia coli 09/09/24 18:19 Blood Culture - Preliminary Blood 09/10/24 21:56 Gram Stain - Preliminary Abdomen Wound Culture - Preliminary Presumptive MRSA
[2024-09-12 11:59] LABS: Glucose,Whole Blood 146 mg/dL (70-110)
--- NOTE | 2024-09-12 16:13 | P.PN ---
Subjective Progress Note Date: 09/12/24 Principal diagnosis: Reason for follow-up is abdominal wall cellulitis and possible UTI Patient is a 84-year-old female with a past medical history significant for hypertension hyperlipidemia type 2 diabetes mellitus paroxysmal atrial fibrillation history of recurrent UTI presenting to the hospital for evaluation of increasing abdominal pain and also noticed having redness to abdominal wal has been diagnosed with abdominal cellulitis prompted this consultation. On today's evaluation that is 09/12/2024, Patient is afebrile patient is currently on room air and denies having any shortness of breath, the patient denies any chest pain or cough, the patient denies any nausea vomiting lower abdominal pain has decreased in intensity. Patient white count is 5.2, creatinine 0.97 urine is growing E. coli abdominal culture with MRSA Objective - Vital Signs Vital signs: Vital Signs Temp 98.5 F 09/12/24 15:00 Pulse 80 09/12/24 15:00 Resp 16 09/12/24 15:00 BP 104/55 09/12/24 15:00 Pulse Ox 96 09/12/24 15:00 FiO2 Intake & Output 09/11/24 09/12/24 09/12/24 18:59 06:59 18:59 Intake Total 236 236 466 Balance 236 236 466 Intake: Oral 236 236 466 Other: Voiding Method Diaper Diaper Diaper # Voids 2 2 - Exam GENERAL DESCRIPTION: Elderly female up in the chair in no distress RESPIRATORY SYSTEM: Unlabored breathing , decreased breath sounds at bases HEART: S1 S2 regular rate and rhythm , ABDOMEN: Soft , lower abdominal wound with minimal slough and redness no drainage EXTREMITIES: No edema feet - Labs CBC & Chem 7: 09/12/24 06:50 09/12/24 06:50 Labs: Abnormal Lab Results - Last 24 Hours (Table) 09/11/24 09/11/24 09/12/24 Range/Units 17:20 20:22 05:20 MCHC (31.0-37.0) g/dL RDW (11.5-15.5) % Sodium (137-145) mmol/L BUN (7-17) mg/dL Glucose (74-99) mg/dL POC Glucose (mg/dL) 115 H 143 H 123 H (70-110) mg/dL Hemoglobin A1c (<=6.0) % Total Protein (6.3-8.2) g/dL 09/12/24 09/12/24 09/12/24 Range/Units 06:50 06:50 06:50 MCHC 30.7 L (31.0-37.0) g/dL RDW 15.8 H (11.5-15.5) % Sodium 136 L (137-145) mmol/L BUN 24 H (7-17) mg/dL Glucose 110 H (74-99) mg/dL POC Glucose (mg/dL) (70-110) mg/dL Hemoglobin A1c 6.8 H (<=6.0) % Total Protein 6.0 L (6.3-8.2) g/dL 09/12/24 09/12/24 Range/Units 11:10 11:57 MCHC (31.0-37.0) g/dL RDW (11.5-15.5) % Sodium (137-145) mmol/L BUN (7-17) mg/dL Glucose (74-99) mg/dL POC Glucose (mg/dL) 136 H 146 H (70-110) mg/dL Hemoglobin A1c (<=6.0) % Total Protein (6.3-8.2) g/dL Microbiology - Last 24 Hours (Table) 09/09/24 18:19 Urine Culture - Final Urine,Voided Escherichia coli 09/09/24 18:19 Blood Culture - Preliminary Blood 09/10/24 21:56 Gram Stain - Preliminary Abdomen Wound Culture - Preliminary Presumptive MRSA Assessment and Plan (1) Open abdominal wall wound Current Visit: Yes Status: Acute Code(s): S31.109A - UNSP OPN WND ABD WALL, UNSP Q W/O PENET PERIT CAV, INIT SNOMED Code(s): 625798104 (2) Abdominal wall cellulitis Current Visit: Yes Status: Acute Code(s): L03.311 - CELLULITIS OF ABDOMINAL WALL SNOMED Code(s): 38554248 (3) Allergy to multiple antibiotics Current Visit: No Status: Acute Code(s): Z88.1 - ALLERGY STATUS TO OTHER ANTIBIOTIC AGENTS SNOMED Code(s): 697321494 Plan: 1patient did have a abdominal pain in this patient who did have a superficial ulceration lower abdominal wall and possible cellulitis from a insulin pump site and will need to cover for the gram-positive skin joe to the likely pathogen a nd less likely gram-negative infection. 2patient with multiple antibiotic ALLERGIES that would limit the number of antibiotic safe to use 3- local wound culture has been obtained which are currently growing MRSA with sensitivities pending urine is growing E. coli 4 patient is currently being treated with Azactam and vancomycin while waiting for the culture to finalize to determine discharge antibiotics Dictation was produced using [employer] dictation software. please excuse any grammatical, word or spelling errors. Time with Patient: Less than 30
[2024-09-12 17:17] LABS: Glucose,Whole Blood 119 mg/dL (70-110)
[2024-09-12 19:46] LABS: Glucose,Whole Blood 166 mg/dL (70-110)
[2024-09-13 05:51] LABS: Glucose,Whole Blood 102 mg/dL (70-110)
[2024-09-13 07:32] VITALS: BP 129/68; PULSE 84; RESP 16; TEMP 97.8
[2024-09-13 08:43] LABS: HCT 36.5 % (37.2-46.3); HGB 11.4 g/dL (12.0-15.0); MCH 27.4 pg (27.0-32.0); MCHC 31.2 g/dL (32.0-37.0); MCV 87.7 FL (80.0-97.0); Mean Platelet Volume 10.9 FL (9.5-12.2); NRBC Per 100 WBC 0 X 10*3/uL (0.00-0.01); Platelet Count 198 X 10*3/uL (140-440); RBC 4.16 X 10*6/uL (4.10-5.20); RDW 15.9 % (11.5-14.5); WBC 4.73 X 10*3/uL (4.50-10.00)
[2024-09-13 08:44] LABS: Basophils # (A) 0.03 X 10*3/uL (0.00-0.10); Basophils % (A) 0.6 %; Eosinophils # (A) 0.22 X 10*3/uL (0.04-0.35); Eosinophils % (A) 4.7 %; Lymphocytes % (A) 16.9 %; Monocytes # (A) 0.73 X 10*3/uL (0.20-1.00); Monocytes % (A) 15.4 %; Neutrophils # (A) 2.94 X 10*3/uL (1.80-7.70); Neutrophils % (A) 62.2 %
[2024-09-13 09:08] LABS: ALT 11 U/L (8-44); AST 16 U/L (13-35); Albumin 3.6 g/dL (3.8-4.9); Albumin/Globulin Ratio 1.89 Ratio (1.60-3.17); Alkaline Phosphatase 51 U/L (41-126); Blood Urea Nitrogen 19.6 mg/dL (9.0-27.0); Calcium 8.7 mg/dL (8.7-10.3); Carbon Dioxide 27.9 mmol/L (21.6-31.8); Chloride 103 mmol/L (96-109); Globulin 1.9 g/dL (1.6-3.3); Glucose 112 mg/dL (70-110); Potassium 4.4 mmol/L (3.5-5.5); Sodium 140 mmol/L (135-145); Total Bilirubin <0.2 mg/dL (0.3-1.2); Total Protein 5.5 g/dL (6.2-8.2)
--- NOTE | 2024-09-13 10:22 | P.DS ---
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 Patient was brought into the emergency department at [facility] yesterday with increased abdominal pain, apparently the patient was recently hospitalized about a month ago at [facility] with recurrent ESBL multidrug-resistant UTI and at that time she did receive a midline and did receive Invanz 1 g piggyback every 24 hours, patient was recently hospitalized at [facility] for recurrent urinary tract infection, she was treated with Invanz, and she was sent home, apparently the patient was brought into the emergency department yesterday because of minimal redness to the abdominal wall from the side where she was getting her insulin injection, as a matter fact it appears like that she has a significant amount of pressure ulcer in that area due to the brief that she is waiting for her urinary incontinence, more than any thing else minimal erythema around that area, because the patient multiple allergies and because of the patient presentation with minimal mental status changes she was admitted to the hospital for possible abdominal wall cellulitis, she was started on Azactam 1 g of piggyback every 8 hours, she was admitted to the hospital she was started on zinc oxide 20% to be applied twice every day to the affected area, infectious disease consultation was obtained, if the patient is doing fine over the next 24 hours she can be discharged home with follow-up with me as an outpatient. 09/11: Patient is laying down in bed she is feeling better today, she denies any fever or chills at this time, she was seen yesterday by infectious disease who recommended to add vancomycin to cover the cellulitis of the abdominal wall along with the Azactam 1 g IV piggyback every 8 hours, urine culture showed evidence of gram-negative bacilli, at this point in time we will switch the patient to inpatient as there is multiple cofactors that affecting her situation, her metabolic encephalopathy is a lot better today, there is may be an element of urinary tract infection with SIRS as well, due to gram-negative bacilli, will continue with current treatment plan until the final result of the cultures are back. 2/2: Patient is laying down in bed in no apparent distress, she has been treated for abdominal wall cellulitis with open wounds related to a pressure sores on abdominal wall, has been treated with Medihoney, she was started on vancomycin along with Azactam, urine culture showed E. coli, continue current treatment plan with vancomycin as well as Azactam for now due to the antibiotic allergies, patient did have presumptive MRSA in the abdominal wall, we will continue with that as well, infectious disease following, patient is switched to inpatient at this point in time. 23: Patient is doing better today, she denies any chest pain, shortness of breath, she has no abdominal pain, nausea vomiting or diarrhea, patient has been on vancomycin and Azactam her culture of the abdominal wall showed evidence of MRSA that is sensitive to doxycycline her urine culture showed E. coli that is sensitive for doxycycline due to her antibiotic allergy I believe the patient can benefit from doxycycline 100 mg orally twice every day for next 10 days. Discharge diagnoses: 1. Abdominal wall pressure ulcer with abdominal wall cellulitis with SIRS present on admission due to MRSA. 2. E. coli with SIRS present on admission 3. Metabolic encephalopathy present on admission due to SIRS. 4. Hypotensive episodes. 4. Paroxysmal Atrial fibrillation. 5. Hypertension and hypertensive cardiovascular disease. 6. Hyperlipidemia. 7. Diabetes mellitus type 2. 8. Diabetic polyneuropathy. 9. 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 10. Idiopathic gout. 11. Obstructive sleep apnea. Patient Condition at Discharge: Stable Plan - Discharge Summary New Discharge Prescriptions: No Action allopurinoL [Zyloprim] 100 mg PO DAILY Losartan Potassium [Cozaar] 100 mg PO DAILY Apixaban [Eliquis] 5 mg PO BID #60 tab Multivit-Min/Iron/Folic/Lutein [Centrum Silver Women Tablet] 1 tab PO DAILY Ezetimibe [Zetia] 10 mg PO DAILY Furosemide [Lasix] 20 mg PO DAILY PRN PRN Reason: Edema hydroCHLOROthiazide [Hydrodiuril] 25 mg PO DAILY Melatonin 10 mg PO HS PRN PRN Reason: Insomnia DULoxetine HCL [Cymbalta] 30 mg PO HS Verapamil HCl [Calan] 120 mg PO DAILY Triamcinolone 0.1% Paste [Oralone 0.1% Paste] 1 applic MUCOUS MEM PC-BID 4 Days each Cholestyramine (with Sugar) [Questran Packet] 4 gm PO DAILY #0 packet Vitamin B Complex 1 cap PO DAILY Cholecalciferol [Vitamin D3 (25 Mcg = 1000 Iu)] 25 mcg PO DAILY DULoxetine HCL [Cymbalta] 60 mg PO DAILY Azo D-Mannose 500mg 2,000 mg PO DAILY Acetaminophen Tab [Tylenol] 650 mg PO Q6H PRN PRN Reason: Pain Or Fever > 100.5 L.acidoph,Paracasei, B.lactis [Probiotic] 1 cap PO DAILY Potassium Chloride [Klor-Con M10] 10 meq PO DAILY PRN PRN Reason: take with furosemide Ubidecarenone [Coenzyme Q10] 200 mg PO DAILY Cyclobenzaprine [Flexeril] 10 mg PO TID PRN 30 Days #90 tab PRN Reason: Muscle Spasm Semaglutide [Ozempic] 1 mg SQ TH Pregabalin [Lyrica] 200 mg PO BID #6 cap HYDROcodone/APAP 7.5-325MG [Falmouth 7.5-325] 1 tab PO TID Discharge Medication List allopurinoL [Zyloprim] 100 mg PO DAILY 09/21/20 [History] Cholecalciferol [Vitamin D3 (25 Mcg = 1000 Iu)] 25 mcg PO DAILY 11/04/22 [History] Losartan Potassium [Cozaar] 100 mg PO DAILY 11/04/22 [History] Vitamin B Complex 1 cap PO DAILY 11/04/22 [History] Apixaban [Eliquis] 5 mg PO BID #60 tab 11/13/22 [Rx] DULoxetine HCL [Cymbalta] 60 mg PO DAILY 01/03/23 [History] Multivit-Min/Iron/Folic/Lutein [Centrum Silver Women Tablet] 1 tab PO DAILY 01/03/23 [History] Ezetimibe [Zetia] 10 mg PO DAILY 07/17/23 [History] Furosemide [Lasix] 20 mg PO DAILY PRN 07/17/23 [History] Acetaminophen Tab [Tylenol] 650 mg PO Q6H PRN 09/12/23 [History] Azo D-Mannose 500mg 2,000 mg PO DAILY 09/12/23 [History] L.acidoph,Paracasei, B.lactis [Probiotic] 1 cap PO DAILY 09/12/23 [History] Melatonin 10 mg PO HS PRN 09/12/23 [History] Potassium Chloride [Klor-Con M10] 10 meq PO DAILY PRN 09/12/23 [History] Ubidecarenone [Coenzyme Q10] 200 mg PO DAILY 09/12/23 [History] hydroCHLOROthiazide [Hydrodiuril] 25 mg PO DAILY 09/12/23 [History] Cyclobenzaprine [Flexeril] 10 mg PO TID PRN 30 Days #90 tab 06/07/24 [Rx] DULoxetine HCL [Cymbalta] 30 mg PO HS 06/22/24 [History] Semaglutide [Ozempic] 1 mg SQ TH 07/21/24 [History] Verapamil HCl [Calan] 120 mg PO DAILY 07/21/24 [History] Pregabalin [Lyrica] 200 mg PO BID #6 cap 07/26/24 [Rx] Triamcinolone 0.1% Paste [Oralone 0.1% Paste] 1 applic MUCOUS MEM PC-BID 4 Days each 07/26/24 [Rx] Cholestyramine (with Sugar) [Questran Packet] 4 gm PO DAILY #0 packet 07/27/24 [Rx] HYDROcodone/APAP 7.5-325MG [F[place]mouth 7.5-325] 1 tab PO TID 08/19/24 [History] Follow up Appointment(s)/Referral(s): Olya Austin MD [Primary Care Provider] - 1-2 days
[2024-09-13 12:09] LABS: Glucose,Whole Blood 110 mg/dL (70-110)
--- NOTE | 2024-09-13 12:41 | P.PN ---
Subjective Progress Note Date: 09/13/24 Principal diagnosis: Reason for follow-up is abdominal wall cellulitis and possible UTI Patient is a 84-year-old female with a past medical history significant for hypertension hyperlipidemia type 2 diabetes mellitus paroxysmal atrial fibrillation history of recurrent UTI presenting to the hospital for evaluation of increasing abdominal pain and also noticed having redness to abdominal wal has been diagnosed with abdominal cellulitis prompted this consultation. On today's evaluation that is 09/13/2024, patient has been afebrile, patient is breathing comfortably and is currently on room air, patient denies having any significant cough no chest pain, patient denies nausea vomiting or diarrhea and lower abdominal pain has decreased in intensity no urinary symptoms. Patient white count is 4.73 creatinine 0.8 urine with E. coli abdominal culture with MRSA Objective - Vital Signs Vital signs: Vital Signs Temp 97.8 F 09/13/24 07:31 Pulse 84 09/13/24 07:31 Resp 16 09/13/24 07:31 BP 129/68 09/13/24 07:31 Pulse Ox 93 L 09/13/24 07:31 FiO2 Intake & Output 09/12/24 09/13/24 09/13/24 18:59 06:59 18:59 Intake Total 466 118 Balance 466 118 Intake: Oral 466 118 Other: Voiding Method Diaper Toilet Toilet Diaper Diaper # Voids 3 1 # Bowel Movements 1 - Exam GENERAL DESCRIPTION: Elderly female up in the chair in no distress RESPIRATORY SYSTEM: Unlabored breathing , decreased breath sounds at bases HEART: S1 S2 regular rate and rhythm , ABDOMEN: Soft , lower abdominal wound with minimal slough and redness no drainage EXTREMITIES: No edema feet - Labs CBC & Chem 7: 09/13/24 05:06 09/13/24 05:06 Labs: Abnormal Lab Results - Last 24 Hours (Table) 09/12/24 09/12/24 09/12/24 Range/Units 06:50 11:10 11:57 Hgb (12.0-15.0) g/dL Hct (37.2-46.3) % MCHC (32.0-37.0) g/dL RDW (11.5-14.5) % Lymphocytes # (0.90-5.00) X 10*3/uL BUN/Creatinine Ratio (12.00-20.00) Ratio Glucose (70-110) mg/dL POC Glucose (mg/dL) 136 H 146 H (70-110) mg/dL Hemoglobin A1c 6.8 H (<=6.0) % Total Bilirubin (0.3-1.2) mg/dL Total Protein (6.2-8.2) g/dL Albumin (3.8-4.9) g/dL 09/12/24 09/12/24 09/13/24 Range/Units 17:16 19:45 05:06 Hgb 11.4 L (12.0-15.0) g/dL Hct 36.5 L (37.2-46.3) % MCHC 31.2 L (32.0-37.0) g/dL RDW 15.9 H (11.5-14.5) % Lymphocytes # 0.80 L (0.90-5.00) X 10*3/uL BUN/Creatinine Ratio (12.00-20.00) Ratio Glucose (70-110) mg/dL POC Glucose (mg/dL) 119 H 166 H (70-110) mg/dL Hemoglobin A1c (<=6.0) % Total Bilirubin (0.3-1.2) mg/dL Total Protein (6.2-8.2) g/dL Albumin (3.8-4.9) g/dL 09/13/24 Range/Units 05:06 Hgb (12.0-15.0) g/dL Hct (37.2-46.3) % MCHC (32.0-37.0) g/dL RDW (11.5-14.5) % Lymphocytes # (0.90-5.00) X 10*3/uL BUN/Creatinine Ratio 24.50 H (12.00-20.00) Ratio Glucose 112 H (70-110) mg/dL POC Glucose (mg/dL) (70-110) mg/dL Hemoglobin A1c (<=6.0) % Total Bilirubin <0.2 L (0.3-1.2) mg/dL Total Protein 5.5 L (6.2-8.2) g/dL Albumin 3.6 L (3.8-4.9) g/dL Microbiology - Last 24 Hours (Table) 09/09/24 18:19 Blood Culture - Preliminary Blood 09/10/24 21:56 Gram Stain - Final Abdomen Wound Culture - Final Methicillin resist S. aureus 09/09/24 18:19 Urine Culture - Final Urine,Voided Escherichia coli Assessment and Plan (1) Open abdominal wall wound Current Visit: Yes Status: Acute Code(s): S31.109A - UNSP OPN WND ABD WALL, UNSP Q W/O PENET PERIT CAV, INIT SNOMED Code(s): 771376158 (2) Abdominal wall cellulitis Current Visit: Yes Status: Acute Code(s): L03.311 - CELLULITIS OF ABDOMINAL WALL SNOMED Code(s): 99092545 (3) Allergy to multiple antibiotics Current Visit: No Status: Acute Code(s): Z88.1 - ALLERGY STATUS TO OTHER ANTIBIOTIC AGENTS SNOMED Code(s): 172582381 Plan: 1patient did have a abdominal pain in this patient who did have a superficial ulceration lower abdominal wall and possible cellulitis from a insulin pump site and will need to cover for the gram-positive skin joe to the likely pathogen and less likely gram-negative infection. 2patient with multiple antibiotic ALLERGIES that would limit the number of antibiotic safe to use 3- local wound culture has been obtained which are currently growing MRSA, urine is growing E. coli 4 patient seem to have shown some clinical movement she will finish therapy with oral doxycycline and a close outpatient follow-up discussed with the discharging physician Dictation was produced using Lee Silber dictation software. please excuse any grammatical, word or spelling errors. Time with Patient: Less than 30
[2024-09-16] MEDS ORDERED: NON FORMULARY DRUG (Semaglutide [Ozempic] 1 MG/0.75 ML Each) SQ SCH (09:00)
== END 2024-09-13 14:16 | disposition home or self-care (01) | DRG 602 ==
LOC: EC 15:53 → OBSVTOIN 22:44 → 6NMEDSUR 22:44 → UNDOADMOB 22:45 → 6NMEDSUR 22:46 → OBSVTOIN 09-12 18:02 → UNDOADMOB 09-12 18:02 → INTOOBSV 09-12 18:02 → UNDODISIN 09-13 14:16
PROVIDERS: ADMIT Internal Medicine; ATTEND Internal Medicine
DX: L03.311 Cellulitis of abdominal wall (principal); G93.41 Metabolic encephalopathy; L89.899 Pressure ulcer of other site, unspecified stage; B95.62 Methicillin resistant Staphylococcus aureus infection as the cause of diseases classified elsewhere; E11.42 Type 2 diabetes mellitus with diabetic polyneuropathy; E78.5 Hyperlipidemia, unspecified; M06.9 Rheumatoid arthritis, unspecified; I11.9 Hypertensive heart disease without heart failure; R65.10 Systemic inflammatory response syndrome (SIRS) of non-infectious origin without acute organ dysfunction; I48.0 Paroxysmal atrial fibrillation; I10 Essential (primary) hypertension; G47.33 Obstructive sleep apnea (adult) (pediatric); M47.26 Other spondylosis with radiculopathy, lumbar region; K21.9 Gastro-esophageal reflux disease without esophagitis; M10.00 Idiopathic gout, unspecified site; M17.0 Bilateral primary osteoarthritis of knee; M79.7 Fibromyalgia; R32 Unspecified urinary incontinence; Z79.899 Other long term (current) drug therapy; Z79.01 Long term (current) use of anticoagulants; Z82.49 Family history of ischemic heart disease and other diseases of the circulatory system; Z86.711 Personal history of pulmonary embolism; Z87.01 Personal history of pneumonia (recurrent); Z86.73 Personal history of transient ischemic attack (TIA), and cerebral infarction without residual deficits; Z87.440 Personal history of urinary (tract) infections; Z88.1 Allergy status to other antibiotic agents; Z90.710 Acquired absence of both cervix and uterus; Z96.651 Presence of right artificial knee joint; Z88.0 Allergy status to penicillin; Z88.8 Allergy status to other drugs, medicaments and biological substances; Z98.1 Arthrodesis status
CPT/HCPCS: 36415; 74177; 80053; 81001; 82150; 83036; 83605; 83690; 85025; 85610; 85730; 87040; 87070; 87077; 87086; 87186; 87205; 96365; 96367; 96375; 99285

== ENCOUNTER 2024-10-15 12:44 | Day surgery (SDC) | payer MEDICARE, OTHER ==
[2024-10-13 10:28] VITALS: BMI 33.2
[2024-10-15] MEDS ORDERED: LACTATED RINGERS 1,000 ML IV SCH (13:19)
[2024-10-15 13:52] VITALS: RESP 16; TEMP 97.1
[2024-10-15] MEDS ORDERED: IOPAMIDOL M200 10 ML VIAL ONE (14:24)
[2024-10-15] MEDS ORDERED: TRIAMCINOLONE ACETONIDE 40 MG/ML 1 ML VIAL ONE (14:24)
[2024-10-15] MEDS ORDERED: ROPIVACAINE 5MG/ML 20ML VIAL ONE (14:24)
--- NOTE | 2024-10-15 14:36 | P.PCN ---
Date of Procedure: 10/15/24 Procedure(s) Performed: Procedure= bilateral sacroiliac joints steroid injection under fluoroscopy guidance (fluoroscopy image stored on file in the radiology Department ) Preoperative diagnosis= 1-Bilateral sacroiliitis Postoperative diagnosis=Same as preop Diagnosis . Complication = none Condition= stable Anesthesia= local anesthesia with ropivacaine 0.5% 4 ml only Indication for the procedure= patient complaining of low back pain , examination was positive for severe tenderness over the sacroiliac joints bilaterally and patient diagnosed with sacroiliitis, for this reason she was good candidate for sacroiliac joint steroid injection. Description of the procedure= procedure risk and benefits discussed with the patient, including but not limited, risk of infection and bleeding, and ALLERGIC reaction to the medication and not complete pain relief and patient agreed with the preceding patient taken to the operating room, placed in prone position or standard monitors applied to the patient then after induction of anesthesia back prepped with chlorhexidine 3 times , Then under strict sterile technique, first I did the right sacroiliac joint the which was identified under fluoroscopy guidance been local infiltration of the skin and subcu interstitial with lidocaine 1% then 22-gauge Quincke Needle advanced slowly under fluoroscopy and placed in the right sacroiliac joint needle placement confirmed with AP and oblique and lateral view, then after that Isovue 200 one mL injected which confirmed the correct needle placement with the appropriate arthrogram of the sacroiliac joint, and after appropriate needle placement confirmed and after negative aspiration, or heme , then Ro pivacaine 0.5% 2 mL, and 20 mg of Kenalog mixed together and injected in the right sacroiliac joint after negative aspiration patient tolerated the procedure well without any complication. Then the left sacroiliac joint steroid injection done under strict sterile technique local infiltration of the skin and subcu interstitial at the location of the left sacroiliac joint then a 22-gauge Quincke Needle advanced slowly under fluoroscopy time placed in the left sacroiliac joint, needle placement confirmed with AP and oblique and lateral view then after appropriate needle placement confirmed, with the AP and oblique and lateral then after negative aspiration Isovue 200 1 mL injected showed arthropathy of the left sacroiliac joint, and after negative aspiration 0.5% Ropivacaine 2 mL and 20 mg of Kenalog injected in the left sacroiliac joint after negative aspiration patient tolerated the procedure well that any complications and she will follow up in clinic 3 weeks
--- NOTE | 2024-10-15 14:48 | FL ---
EXAMINATION TYPE: FL guided pain mgmt statistic Intraoperative/procedural fluoroscopic services were provided. CLINICAL INDICATION:Female, 84 years old with history of PAIN; , LOCATED [facility]IN [facility] FINDINGS: 2 fluoroscopic images demonstrating bilateral SI joint injections. No radiographic evidence for compl ication. Total fluoroscopy time is 6.7 seconds. DAP: 0.10635 mGym2 Please see the operative/procedural note for further details. [facility], , 10/15/2024 2:45 PM
[2024-10-15 15:08] VITALS: BP 98/51; PULSE 72
== END 2024-10-15 15:18 | disposition home or self-care (01) ==
LOC: ORPAIN 12:44
PROVIDERS: ATTEND Specialist
DX: M46.1 Sacroiliitis, not elsewhere classified (principal); I48.91 Unspecified atrial fibrillation; Z79.01 Long term (current) use of anticoagulants
CPT/HCPCS: 27096; J3301; Q9966; J2795

== ENCOUNTER → 2024-11-17 | Outpatient (CLI) | payer MEDICARE, OTHER ==
[2024-11-17 10:22] VITALS: BP 118/68; PULSE 102; RESP 17; TEMP 96.9
--- NOTE | 2024-11-17 15:08 | P.PAINPG ---
PQRS Measure Charge Sheet Comment: HISTORY OF PRESENT ILLNESS: A 84 yr old female w granddaughter at side presents today w severe and chronic LBP > 1 yr secondary to L1-S1 post laminectomy syndrome for evaluation s/p BL SI injection #1. Pt states she experienced 80% pain relief x 1 mo s/p procedure. Pt states pain level is provoked at 5-6 /10 in intensity, constant, localized in the lumbar spine, predominantly axial, throbbing in character w occasional shooting pain towards the R hip and RLE. Pain is provoked by walking/ standing for periods > 10 min. Pain is alleviated by PT x 6 wks which ended in Nov 2023, physician guided home stretches daily since Nov 2023, ice, walker for ambulatory assistance, medications, repositioning and rest . Interventional procedures include BL TFESI L4-L5 x1, Caudal EUSEBIO w Lysis (Jun 2024), BL SI x1 (11/02) Medications include Fenton, Lyrica 100mg, Baclofen, Naproxen, Cymbalta, Tyl REVIEW OF ORGAN SYSTEMS: CONSTITUTIONAL: No fevers or chills. No recent weight loss. NEUROLOGICAL: + numbness and tingling along the distal extremities. No seizure disorders or headaches. MUSCULOSKELETAL: + pain PSYCHIATRIC: Denies current depression or suicidal thoughts. Physical Examinations : Constitutional : Cooperative , not in acute distress . Neurologic : Cranial nerve II to XII intact. No focal neurological deficits. Psychiatric : alert & oriented x 3. Matching mood & appropriate affect. Judgment & insight intact. Musculoskeletal : Cervical Spine Motor strength in the deltoid and biceps: Normal right side. Normal Left side Motor strength biceps and the wrist extensors: Normal right side . Normal left side Motor strength in the triceps muscle: Normal right side. Normal left side Deep tendon reflexes: Normal at the biceps. Normal at Brachioradialis. Normal at triceps Vertebral body tenderness to deep palpation over Cervical facet loading test: positive bilaterally Spurling test: positive bilaterally Neck distraction test: positive bilaterally Romero sign: positive bilaterally Lumbar spine +Incisional scar intact Motor strength lower extremities ,thigh and legs 5/5 Right side , 5/5 Left side Deep tendon reflexes : Normal Knee Jerk. Normal Ankle Jerk Vertebral body tenderness over L5 Chakraborty Test positive R> L5-S1 Lumbar facet Loading Test: positive Right / positive Left Range of motion of the lumbar spine Flexion 30 degrees, extension 10 degrees Straight Leg Raise test: Left/ Right positive at 30 degrees Sonja test: positive right / positive left. Severe tenderness over the Sacroiliac joint on the Right / Left sides Gaenslen test: positive bilaterally Seated flexion test: positive bilaterally. Sacral spine : Severe tenderness over the Sacroiliac joint: right side / left side Range of motion: Flexion of the lumbar spine <60 degrees Range of motion: Extension of the lumbar spine <20 degrees Gaenslen's Test positive BL Sonja test: positive right side > left side Thigh Thrust Test BL positive Sacral Thrust Test Imaging: CT lumbar spine from 03/11/24 completed and awaiting uploading to records Assessment/ Plan : L1-S1 post laminectomy syndrome Recommendation of medication management and R TFESI L4-L5, L5-S1 #1. Risks, benefits of procedure discussed and pt verbalized understanding. Protocol for discontinuation/ continuation of medications maya procedure discussed. Refill Fenton 7.5/325mg #120 w 1 RF. Opiate/ narcotic agreement signed 07/15/24. Use, side effects, adverse reactions, safe storage discussed. Pt & [id number] acknowledged understanding. TENS unit ordered for home use. All questions answered. I have spent greater than 30 minutes on patient care today. Dr Bergman was a vailable by phone for the evaluation of this patient. The time was used to review the medical records including relevant urine studies and Prescription history (MAPs), review of the available imaging, evaluation and examination of the patient, coordination of care with the medical staff and if applicable referring physicians, as well as creation of the medical record - Pain Location Lower Back Non-Pharmacological Interventions: Ice Pharmacological Interventions: Medication PQRS Narrative: Narcotic Agreement Date Signed 07/15/24 Hx Alcohol Use (MH) No Home Medications: Ambulatory Orders allopurinoL [Zyloprim] 100 mg PO DAILY 09/21/20 Cholecalciferol [Vitamin D3 (25 Mcg = 1000 Iu)] 25 mcg PO DAILY 11/04/22 Losartan Potassium [Cozaar] 100 mg PO DAILY 11/04/22 Vitamin B Complex 1 cap PO DAILY 11/04/22 Apixaban [Eliquis] 5 mg PO BID #60 tab 11/13/22 DULoxetine HCL [Cymbalta] 60 mg PO BID 01/03/23 Multivit-Min/Iron/Folic/Lutein [Centrum Silver Women Tablet] 1 tab PO DAILY 01/03/23 Ezetimibe [Zetia] 10 mg PO DAILY 07/17/23 Furosemide [Lasix] 20 mg PO DAILY PRN 07/17/23 Acetaminophen Tab [Tylenol] 650 mg PO Q6H PRN 09/12/23 Azo D-Mannose 500mg 2,000 mg PO DAILY 09/12/23 L.acidoph,Paracasei, B.lactis [Probiotic] 1 cap PO DAILY 09/12/23 Melatonin 10 mg PO HS PRN 09/12/23 Potassium Chloride [Klor-Con M10] 10 meq PO DAILY PRN 09/12/23 Ubidecarenone [Coenzyme Q10] 200 mg PO DAILY 09/12/23 hydroCHLOROthiazide [Hydrodiuril] 25 mg PO DAILY 09/12/23 Cyclobenzaprine [Flexeril] 10 mg PO TID PRN 30 Days #90 tab 06/07/24 Semaglutide [Ozempic] 1 mg SQ FR 07/21/24 Verapamil HCl [Calan] 120 mg PO DAILY 07/21/24 Pregabalin [Lyrica] 200 mg PO BID #6 cap 07/26/24 HYDROcodone/APAP 7.5-325MG [Fenton 7.5-325] 1 tab PO QID PRN 30 Days #120 tab 11/17/24 HYDROcodone/APAP 7.5-325MG [Fenton 7.5-325] 1 tab PO QID PRN 30 Days #120 tab 11/17/24 LORazepam [Ativan] 1 mg PO DAILY 1 Days #2 tab 11/17/24 Controlled Substance Measures - Controlled Substance Measures Is patient prescribed a controlled substance at discharge?: Yes When asked, does pt state using other controlled substances?: Yes If prescribed controlled substance>3 days was MAPS reviewed?: Yes
== END ==
LOC: PNWHC3 09:59
PROVIDERS: ATTEND Specialist
DX: M96.1 Postlaminectomy syndrome, not elsewhere classified (principal); Z88.0 Allergy status to penicillin; Z88.1 Allergy status to other antibiotic agents; Z88.8 Allergy status to other drugs, medicaments and biological substances
CPT/HCPCS: 80307; 99212

== ENCOUNTER 2024-12-10 08:04 | Day surgery (SDC) | payer MEDICARE, OTHER ==
[2024-12-10 08:43] VITALS: TEMP 97
[2024-12-10 08:46] LABS: Glucose,Whole Blood 116 mg/dL (70-110)
[2024-12-10] MEDS ORDERED: methylPREDNISolone ACETATE 40 MG/ML 1 ML VIAL ONE (09:32)
[2024-12-10] MEDS ORDERED: IOPAMIDOL M200 10 ML VIAL ONE (09:32)
--- NOTE | 2024-12-10 09:54 | P.PCN ---
Date of Procedure: 12/10/24 Procedure(s) Performed: PREOPERATIVE DIAGNOSIS: 1-Lumbar radiculopathy . 2-lumbar postlaminectomy pain syndrome POSTOPERATIVE DIAGNOSIS: 1-lumbar radiculopathy. 2-lumbar laminectomy pain syndrome PROCEDURE 1. Transforaminal epidural steroid injection under fluoroscopic guidance at riggt L4-5 , and right L5-S1 level. (Fluoroscopy images stored on file in the radiology Department ) 2. Lumbar epidurogram . ANESTHESIA: Local with 1% lidocaine 3 ml. EBL: Minimal PROCEDURE INDICATION: The patient with low back pain and radiculopathy symptoms unresponsive to conservative treatment. PROCEDURE DESCRIPTION / TECHNIQUE: The patient was seen and identified in the preoperative area. Risks, benefits, complications, and alternatives were discussed with the patient. The patient agreed to proceed with the procedure and signed the consent. IV was started, and vital signs were stable. Patient was taken to the OR and time out was completed. The patient was placed in the prone position on procedure table and a pillow was placed under the abdomen to reduce lumbar lordosis. The lumbosacral area was prepped and draped in the usual sterile fashion. Critical pause was taken. Vital signs were closely monitored during the procedure. Using oblique fluoroscopy, the chin of the ``Yayo dog at right L4-5 level was identified, and the skin and deeper tissues just below was localized with 1% lidocaine. Subsequently, a 22-gauge 5-inch spinal needle was advanced under a tunneled view fluoroscopic guidance just underneath the chin of the ``Yayo dog at the right L4-5 Under lateral fluoroscopy, the needle was then advanced to the posterior border of the interforaminal space. After negative aspiration of CSF and blood and with no paresthesias, 1 mL Isovue 200 contrast dye was injected excellent epidurogram and outlining of the nerve root Subsequently, 3 mL of block solution containing 20 mg Depo-Medrol and 2 mL of 0.9% normal saline PF was injected. Needle was removed and the same procedure was repeated at the right L5-S1 level . At the end of the procedure, skin was cleansed, and bandages were applied. COMPLICATIONS:none DISPOSITION / PLANS: The patient was placed in a supine position and transferred to the recovery area in a stable condition for observation. There was no e vidence of lower extremity motor or sensory deficit after the procedure. Patient was discharged from the recovery room after meeting discharge criteria. Home discharge instructions were given to the patient by the staff. The patient was reexamined prior to discharge. Patient held Eliquis for 3 days
--- NOTE | 2024-12-10 10:12 | FL ---
EXAMINATION TYPE: FL guided pain mgmt statistic DATE OF EXAM: 12/10/2024 FLUOROSCOPY transforaminal epidural steroid injection, 18sec fl time [id number] One image is submitted. [facility], Workstation: [employer], 12/10/2024 10:10 AM
[2024-12-10 10:20] VITALS: BP 163/85; PULSE 62; RESP 18
== END 2024-12-10 10:40 | disposition home or self-care (01) ==
LOC: ORPAIN 08:04
PROVIDERS: ATTEND Specialist
DX: M54.16 Radiculopathy, lumbar region (principal); M96.1 Postlaminectomy syndrome, not elsewhere classified; E11.9 Type 2 diabetes mellitus without complications; Z79.01 Long term (current) use of anticoagulants; Z88.1 Allergy status to other antibiotic agents; Z88.0 Allergy status to penicillin
CPT/HCPCS: 64483; 64484; Q9966; J1010

== ENCOUNTER → 2024-12-27 | Outpatient (CLI) | payer MEDICARE, OTHER ==
[2024-12-27 13:04] VITALS: BP 123/72; PULSE 89; RESP 14; TEMP 97.1
--- NOTE | 2024-12-29 11:00 | P.PAINPG ---
Objective - Vital Signs Vital signs: Vital Signs Temp 97.1 F L 12/27/24 12:53 Pulse 89 12/27/24 12:53 Resp 14 12/27/24 12:53 BP 123/72 12/27/24 12:53 Pulse Ox 96 12/27/24 12:53 FiO2 Intake & Output 12/26/24 12/27/24 12/27/24 18:59 06:59 18:59 Weight 79.832 kg PQRS Measure Charge Sheet Mode of Arrival: Walker Comment: HISTORY OF PRESENT ILLNESS: A 84 yr old female presents today w severe and chronic LBP > 1 yr secondary to L1-S1 post laminectomy syndrome for evaluation s/p R TFESI L4-L5, L5-S1 #1. Pt states she experienced 50% pain relief x 2 wks s/p procedure. Pt states pain level is provoked at 6-7 /10 in intensity, constant, localized in the lumbar spine, predominantly axial, stabbing in character w occasional shooting pain towards the R hip and RLE. Pain is provoked by walking/ standing for periods > 10 min. Pain is alleviated by PT x 6 wks which ended in Nov 2023, physician guided home stretches daily since Nov 2023, ice, walker for ambulatory assistance, medications, repositioning and rest . Interventional procedures include BL TFESI L4-L5 x1, Caudal EUSEBIO w Lysis (Jun 2024), BL SI x1 (11/02), R TFESI L4-L5, L5-S1 x1 (01/02) Medications include Oglala, Lyrica 100mg, Baclofen, Naproxen, Cymbalta, Ty REVIEW OF ORGAN SYSTEMS: CONSTITUTIONAL: No fevers or chills. No recent weight loss. NEUROLOGICAL: + numbness and tingling along the distal extremities. No seizure disorders or headaches. MUSCULOSKELETAL: + pain PSYCHIATRIC: Denies current depression or suicidal thoughts. Physical Examinations : Constitutional : Cooperative , not in acute distress . Neurologic : Cranial nerve II to XII intact. No focal neurological deficits. Psychiatric : alert & oriented x 3. Matching mood & appropriate affect. Judgment & insight intact. Musculoskeletal : Cervical Spine Motor strength in the deltoid and bi ceps: Normal right side. Normal Left side Motor strength biceps and the wrist extensors: Normal right side . Normal left side Motor strength in the triceps muscle: Normal right side. Normal left side Deep tendon reflexes: Normal at the biceps. Normal at Brachioradialis. Normal at triceps Vertebral body tenderness to deep palpation over Cervical facet loading test: positive bilaterally Spurling test: positive bilaterally Neck distraction test: positive bilaterally Romero sign: positive bilaterally Lumbar spine +Incisional scar intact Motor strength lower extremities ,thigh and legs 5/5 Right side , 5/5 Left side Deep tendon reflexes : Normal Knee Jerk. Normal Ankle Jerk Vertebral body tenderness over L5 Chakraborty Test positive R> L5-S1 Taut bands w twitch response over BL T9 - S1 Lumbar facet Loading Test: positive Right / positive Left Range of motion of the lumbar spine Flexion 30 degrees, extension 10 degrees Straight Leg Raise test: Left/ Right positive at 30 degrees Sonja test: positive right / positive left. Severe tenderness over the Sacroiliac joint on the Right / Left sides Gaenslen test: positive bilaterally Seated flexion test: positive bilaterally. Sacral spine : Severe tenderness over the Sacroiliac joint: right side / left side Range of motion: Flexion of the lumbar spine <60 degrees Range of motion: Extension of the lumbar spine <20 degrees Gaenslen's Test positive BL Sonja test: positive right side > left side Thigh Thrust Test BL positive Sacral Thrust Test Imaging: CT lumbar spine from 03/11/24 completed and awaiting uploading to records Assessment/ Plan : L1-S1 post laminectomy syndrome Recommendation of BL TPIs T9- S1 #1 and medication management. Oglala 10/325mg #120 w 1 RF. Opiate/ narcotic agreement signed 12/27/24. UDS from 11/17/24 reviewed and consistent. Use, side effects, adverse reactions, safe storage discussed. TENS unit ordered for home use (Oct 2024). All questions answered. I have spent greater than 30 minutes on patient care today. Dr Bergman was available by phone for the evaluation of this patient. The time was used to review the medical records including relevant urine studies and Prescription history (MAPs), review of the available imaging, evaluation and examination of the patient, coordination of care with the medical staff and if applicable referring physicians, as well as creation of the medical record - Pain Location Bilateral Lower Back Non-Pharmacological Interventions: Elevation, Exercise, Heat, Home Exercise, Ice, Inactivity, Physical Therapy, Position/Reposition, Relaxation Technique, Sitting, Stretching Pharmacological Interventions: Epidural, PRN Medication, Scheduled Medication PQRS Narrative: Narcotic Agreement Date Signed 07/15/24 Blood Pressure 123/72 Pain Intensity [Bilateral 7 Lower Back] Scale Used Numeric (1 - 10) Hx Alcohol Use (MH) No Home Medications: Ambulatory Orders allopurinoL [Zyloprim] 100 mg PO DAILY 09/21/20 Cholecalciferol [Vitamin D3 (25 Mcg = 1000 Iu)] 25 mcg PO DAILY 11/04/22 Losartan Potassium [Cozaar] 100 mg PO DAILY 11/04/22 Vitamin B Complex 1 cap PO DAILY 11/04/22 Apixaban [Eliquis] 5 mg PO BID #60 tab 11/13/22 DULoxetine HCL [Cymbalta] 60 mg PO BID 01/03/23 Multivit-Min/Iron/Folic/Lutein [Centrum Silver Women Tablet] 1 tab PO DAILY 01/03/23 Ezetimibe [Zetia] 10 mg PO DAILY 07/17/23 Furosemide [Lasix] 20 mg PO DAILY PRN 07/17/23 Acetaminophen Tab [Tylenol] 650 mg PO Q6H PRN 09/12/23 Azo D-Mannose 500mg 2,000 mg PO DAILY 09/12/23 L.acidoph,Paracasei, B.lactis [Probiotic] 1 cap PO DAILY 09/12/23 Melatonin 10 mg PO HS PRN 09/12/23 Potassium Chloride [Klor-Con M10] 10 meq PO DAILY PRN 09/12/23 Ubidecarenone [Coenzyme Q10] 200 mg PO DAILY 09/12/23 hydroCHLOROthiazide [Hydrodiuril] 25 mg PO DAILY 09/12/23 Cyclobenzaprine [Flexeril] 10 mg PO TID PRN 30 Days #90 tab 06/07/24 Semaglutide [Ozempic] 1 mg SQ FR 07/21/24 Verapamil HCl [Calan] 120 mg PO DAILY 07/21/24 Pregabalin [Lyrica] 200 mg PO BID #6 cap 07/26/24 LORazepam [Ativan] 1 mg PO DAILY 1 Days #2 tab 11/17/24 HYDROcodone/APAP 10-325MG [Oglala 10-325] 1 tab PO Q6HR PRN 30 Days #120 tab 12/27/24 HYDROcodone/APAP 10-325MG [Oglala 10-325] 1 tab PO QID PRN 30 Days #120 tab 12/27/24 Controlled Substance Measures - Controlled Substance Measures Is patient prescribed a controlled substance at discharge?: Yes When asked, does pt state using other controlled substances?: Yes If prescribed controlled substance>3 days was MAPS reviewed?: Yes
== END ==
LOC: PNWHC3 12:47
PROVIDERS: ATTEND Specialist
DX: M96.1 Postlaminectomy syndrome, not elsewhere classified (principal); Z88.0 Allergy status to penicillin; Z88.1 Allergy status to other antibiotic agents; Z88.8 Allergy status to other drugs, medicaments and biological substances
CPT/HCPCS: 99211

== ENCOUNTER → 2025-01-11 | Day surgery (SDC) | payer MEDICARE, OTHER ==
[2025-01-10 10:09] VITALS: BMI 33.1
[2025-01-11 10:11] VITALS: BP 121/86; PULSE 92; RESP 16; TEMP 97.4
[2025-01-11 10:30] LABS: Glucose,Whole Blood 136 mg/dL (70-110)
== END ==
LOC: ORPAIN 09:47
PROVIDERS: ATTEND Anesthesiology
DX: M54.14 Radiculopathy, thoracic region (principal); M54.16 Radiculopathy, lumbar region; Z53.9 Procedure and treatment not carried out, unspecified reason

== ENCOUNTER → 2025-01-27 | Outpatient (CLI) | payer MEDICARE, OTHER ==
--- NOTE | 2025-01-28 07:29 | BD ---
EXAMINATION TYPE: Axial Bone Density DATE OF EXAM: 01/27/2025 CLINICAL HISTORY: 84 years old Female. ICD-10 CODE: M85.851 , Additional History: Postmenopausal scr eening for osteoporosis Height: 58 Weight: 178 FRAX RISK QUESTIONS: Family History (Parent hip fracture): no History of Fracture in Adulthood: yes Secondary Osteoporosis: no RISK FACTORS HISTORY OF: T-Spine Fracture: yes When: 2010 History of lt Wrist Fracture: yes When: 1999 Surgery to Spine: yes When: MEDICATIONS: Thyroid Medications: no Osteoporosis Medications: no EXAM MEASUREMENTS: Bone mineral densitometry was performed using the [employer] System. Bone mineral density about the R hip (g/cm2): 0.839 Bone mineral density about the L hip (g/cm2): 0.905 T Score values are as follows: -----R Neck: -2.5 -----L Neck: -2.5 -----R Total: -1.3 -----L Total: -0.8 Z Score values are as follows: -----R Neck: -0.6 -----L Neck: -0.5 -----R Total: 0.4 -----L Total: 0.9 Bone mineral density baseline Bone mineral density about the R Wrist (g/cm2): 0.549 T Score values are as follows: -----Dist. R+U: -1.2 -----Prox. R+U: -1.4 -----Radius total: -2.1 Z Score values are as follows: -----Dist. R+U: 1.8 -----Prox. R+U: 1.5 -----Radius total: 0.9 Bone mineral density baseline FRAX%s: The graph provided illustrates a 24.3% chance for a major osteoporotic fx and a 7.8% chance f or the hips probability for fx in 10 years time. IMPRESSION: Osteoporosis (T Score less than -2.5). There is increased fracture risk and therapy is usually indicated based on age. Re-Screen 1-2 years. NOTE: T-SCORE=SD OF THE YOUNG ADULT MEAN. [facility], , 01/28/2025 7:27 AM
--- NOTE | 2025-01-28 07:46 | MM ---
Reason for Exam: Screening (asymptomatic). Last mammogram was performed 5 year(s) and 5 month(s) ago. Patient History: Menarche at age 14. First Full-Term at age 23. Left ovary removed at age 52. Right ovary removed at age 52. Hysterectomy at age 52. Postmenopausal. Risk Values: Naz 5 year model risk: 1.4%. NCI Lifetime model risk: 1.9%. Tissue Density: There are scattered areas of fibroglandular density. Findings: Analyzed By CAD. A few tiny benign oil cyst calcifications have developed in the interval. There is no suspicious group of microcalcifications or new suspicious mass in either breast. Overall Assessment: Benign, BI-RAD 2 Management: Screening Mammogram of both breasts in 1 year. Patient should continue monthly self-breast exams. A clinical breast exam by your physician is recommended on an annual basis. This exam should not preclude additional follow-up of suspicious palpable abnormalities. Note on Naz scores and lifetime risk: 1. A Naz score greater than 3% is considered moderate risk. If this is the case, consider specialist referral to assess eligibility for a risk reducing agent. 2. If overall lifetime risk for the development of breast cancer is 20% or higher, the patient may qualify for future screening with alternating mammogram and breast MRI. [facility], , 01/28/2025 7:43 AM. Electronically signed and approved by: Cathie Mclean M.D. Radiologist
== END | disposition home or self-care (01) ==
LOC: RADMAMWWP 14:51
PROVIDERS: ATTEND Internal Medicine
DX: Z12.31 Encounter for screening mammogram for malignant neoplasm of breast (principal); M85.851 Other specified disorders of bone density and structure, right thigh; M81.0 Age-related osteoporosis without current pathological fracture; R92.323 Mammographic fibroglandular density, bilateral breasts; R92.1 Mammographic calcification found on diagnostic imaging of breast; Z78.0 Asymptomatic menopausal state
CPT/HCPCS: 77063; 77067; 77080

== ENCOUNTER 2025-02-03 11:03 | Day surgery (SDC) | payer MEDICARE, OTHER ==
[2025-02-01 10:40] VITALS: BMI 37.2
[2025-02-03] MEDS ORDERED: LACTATED RINGERS 1,000 ML IV SCH (11:11)
[2025-02-03 11:43] LABS: Glucose,Whole Blood 122 mg/dL (70-110)
[2025-02-03 11:49] VITALS: TEMP 98.2
[2025-02-03] MEDS ORDERED: methylPREDNISolone ACETATE 40 MG/ML 1 ML VIAL ONE (12:39)
[2025-02-03] MEDS ORDERED: IOPAMIDOL M200 10 ML VIAL ONE (12:39)
--- NOTE | 2025-02-03 12:56 | P.PCN ---
Date of Procedure: 02/03/25 Procedure(s) Performed: PREOP DIAGNOSIS: 1- Lumbar postlaminectomy syndrome. POSTOP DIAGNOSIS:1- Lumbar postlaminectomy syndrome. PROCEDURE: 1-Caudal epidural steroid injection with epidurolysis and epidurogram under fluoroscopic guidance.(Fluoro images in the radiology Department ) 2-caudal epidurogram. ANESTHESIA: Lidocaine 1% 5 mL for skin and subcu infiltration EBL: Minimal. PROCEDURE INDICATION: The patient with post-laminectomy syndrome with low back pain and radiculopathy radiating down in both legs, here for a caudal epidural steroid injection with epidurolysis. PROCEDURE DESCRIPTION: The patient was seen and identified in the preoperative area. Risks, benefits, complications, and alternatives were discussed with the patient. The patient agreed to proceed with the procedure and signed the consent. IV was started, and vital signs were stable. Patient was taken to the OR and time out was completed. The patient was placed in the prone position on procedure table and a pillow was placed under the abdomen to reduce lumbar lordosis. The lumbosacral area was prepped and draped in the usual sterile fashion. Vital signs were closely monitored during the procedure. lateral view and the anterior-posterior plates of the sacrum were identified with infiltration of the area overlying the sacral hiatus with 1% lidocaine .A 17 gauge RK epidural needle was used to advance through the sacral hiatus into the caudal epidural space. Omnipaque 180 dye. 2cc was injected and the position of the needle was verified to be in the midline. A Racz catheter was introduced into the epidural space and was advanced towards the L5-S1 interspace under direct fluoroscopic guidance. Multiple passes were made with the catheter for lysis of epidural adhesions. Depo-Medrol 40 mg ( preservative-free ) with 3ml of preservative free Lidocaine 1% and 5 ml of preservative free normal saline was injected slowly. Additional spread was seen to L4 under fluoroscopy. The needle and the catheter were withdrawn intact. EPIDUROGRAM: Omnipaque 180 mg dye 2 ml was injected with spread of the dye into the caudal epidural space and with spread cutoff at L5 prior to epidurolysis. Post epidurolysis dye 2 ml was injected and spread was seen to L3-4.There was further spread of the solution together with the dye above the L3 COMPLICATIONS: None. DISPOSITION / PLANS: The patient was placed in a supine position and transferred to the recovery area in a stable condition for observation and was discharged from the recovery room after meeting discharge criteria. Home discharge instructions given to the patient by the staff. The patient was reexamined prior to discharge. The patient will schedule a follow up in the clinic in 2-4 weeks. Last dose of Eliquis was taken more than 3 days ago.
[2025-02-03 13:21] VITALS: BP 122/58; PULSE 66; RESP 16
--- NOTE | 2025-02-03 14:39 | FL ---
Fluoroscopy INDICATION: Pain FINDINGS: Fluoroscopy time: 13 seconds. Total dose area product (DAP) in uGy*m?, mGy*cm? (or similar): 0.19007 Images obtained: 4. Images document the procedure. IMPRESSION: 1. Documentation of fluoroscopy. [facility], , 02/03/2025 2:37 PM
== END 2025-02-03 13:35 | disposition home or self-care (01) ==
LOC: ORPAIN 11:03
PROVIDERS: ATTEND Specialist
DX: M96.1 Postlaminectomy syndrome, not elsewhere classified (principal); Z88.1 Allergy status to other antibiotic agents; Z88.0 Allergy status to penicillin
CPT/HCPCS: 62264; Q9966; J1010

== ENCOUNTER → 2025-02-21 | Outpatient (CLI) | payer MEDICARE, OTHER ==
[2025-02-21 10:19] VITALS: BP 119/68; PULSE 88; RESP 18
--- NOTE | 2025-02-23 07:58 | P.PAINPG ---
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 Pt states she experienced 0% pain relief x 2 wks s/p procedure. Pt states pain level is provoked at 7 /10 in intensity, constant, localized in the lumbar spine, predominantly axial, stabbing in character w occasional shooting pain towards the R hip and RLE. Pain is provoked by walking/ standing for periods > 10 min. Pain is alleviated by PT x 6 wks which ended in Nov 2023, physician guided home stretches daily since Nov 2023, ice, walker for ambulatory assistance, medications, repositioning and rest . Interventional procedures include BL TFESI L4-L5 x1, Caudal EUSEBIO w Lysis (Jun 2024, 02/02), BL SI x1 (11/02), R TFESI L4-L5, L5-S1 x1 (01/02) Medications include Vallejo, Lyrica 100mg, Baclofen, Naproxen, Cymbalta, Ty REVIEW OF ORGAN SYSTEMS: CONSTITUTIONAL: No fevers or chills. No recent weight loss. NEUROLOGICAL: + numbness and tingling along the distal ex tremities. No seizure disorders or headaches. MUSCULOSKELETAL: + pain PSYCHIATRIC: Denies current depression or suicidal thoughts. Physical Examinations : Constitutional : Cooperative , not in acute distress . Neurologic : Cranial nerve II to XII intact. No focal neurological deficits. Psychiatric : alert & oriented x 3. Matching mood & appropriate affect. Judgment & insight intact. Musculoskeletal : Cervical Spine Motor strength in the deltoid and biceps: Normal right side. Normal Left side Motor strength biceps and the wrist extensors: Normal right side . Normal left side Motor strength in the triceps muscle: Normal right side. Normal left side Deep tendon reflexes: Normal at the biceps. Normal at Brachioradialis. Normal at triceps Vertebral body tenderness to deep palpation over Cervical facet loading test: positive bilaterally Spurling test: positive bilaterally Neck distraction test: positive bilaterally Romero sign: positive bilaterally Lumbar spine +Incisional scar intact Motor strength lower extremities ,thigh and legs 5/5 Right side , 5/5 Left side Deep tendon reflexes : Normal Knee Jerk. Normal Ankle Jerk Vertebral body tenderness over L5 Chakraborty Test positive R> L5-S1 Taut bands w twitch response over BL T9 - S1 Lumbar facet Loading Test: positive Right / positive Left Range of motion of the lumbar spine Flexion 30 degrees, extension 10 degrees Straight Leg Raise test: Left/ Right positive at 30 degrees Sonja test: positive right / positive left. Severe tenderness over the Sacroiliac joint on the Right / Left sides Gaenslen test: positive bilaterally Seated flexion test: positive bilaterally. Sacral spine : Severe tenderness over the Sacroiliac joint: right side / left side Range of motion: Flexion of the lumbar spine <60 degrees Range of motion: Extension of the lumbar spine <20 degrees Gaenslen's Test positive BL Sonja test: positive right side > left side Thigh Thrust Test BL positive Sacral Thrust Test Imaging: CT lumbar spine from 03/11/24 completed and awaiting uploading to records Assessment/ Plan : L1-S1 post laminectomy syndrome Recommendation of medication management. Percocet 7.5/325gm #120 w RF. Discontinue Vallejo 10/325mg #120 w 1 RF. Opiate/ narcotic agreement signed 02/21/25. UDS from 11/17/24 reviewed and consistent. Use, side effects, adverse reactions, safe storage discussed. TENS unit ordered for home use (Oct 2024). All questions answered. I have spent greater than 30 minutes on patient care today. Dr Bergman was available by phone for the evaluation of this patient. The time was used to review the medical records including relevant urine studies and Prescription history (MAPs), review of the available imaging, evaluation and examination of the patient, coordination of care with the medical staff and if applicable referring physicians, as well as creation of the medical record - Pain Location Bilateral Lower Back Non-Pharmacological Interventions: Heat, Ice, Physical Therapy Pharmacological Interventions: Epidural, PRN Medication, Scheduled Medication PQRS Narrative: Narcotic Agreement Date Signed 07/15/24 Hx Alcohol Use (MH) No Home Medications: Ambulatory Orders allopurinoL [Zyloprim] 100 mg PO DAILY 09/21/20 Cholecalciferol [Vitamin D3 (25 Mcg = 1000 Iu)] 25 mcg PO DAILY 11/04/22 Losartan Potassium [Cozaar] 100 mg PO DAILY 11/04/22 Vitamin B Complex 1 cap PO DAILY 11/04/22 Apixaban [Eliquis] 5 mg PO BID #60 tab 11/13/22 DULoxetine HCL [Cymbalta] 60 mg PO BID 01/03/23 Multivit-Min/Iron/Folic/Lutein [Centrum Silver Women Tablet] 1 tab PO DAILY 01/03/23 Ezetimibe [Zetia] 10 mg PO DAILY 07/17/23 Furosemide [Lasix] 20 mg PO DAILY PRN 07/17/23 Acetaminophen Tab [Tylenol] 650 mg PO Q6H PRN 09/12/23 Azo D-Mannose 500mg 2,000 mg PO DAILY 09/12/23 L.acidoph,Paracasei, B.lactis [Probiotic] 1 cap PO DAILY 09/12/23 Melatonin 10 mg PO HS PRN 09/12/23 Ubidecarenone [Coenzyme Q10] 200 mg PO DAILY 09/12/23 hydroCHLOROthiazide [Hydrodiuril] 25 mg PO DAILY 09/12/23 Cyclobenzaprine [Flexeril] 10 mg PO TID PRN 30 Days #90 tab 06/07/24 Semaglutide [Ozempic] 1 mg SQ FR 07/21/24 Verapamil HCl [Calan] 120 mg PO DAILY 07/21/24 Pregabalin [Lyrica] 200 mg PO BID #6 cap 07/26/24 diazePAM [Valium] 10 mg PO DAILY PRN 02/01/25 oxyCODONE HCL/ACETAMINOPHEN [Percocet 7.5-325 mg Tablet] 1 each PO QID PRN 30 Days #120 tab 02/21/25 oxyCODONE HCL/ACETAMINOPHEN [Percocet 7.5-325 mg] 1 tab PO QID PRN 30 Days #120 tab 02/21/25 Controlled Substance Measures - Controlled Substance Measures Is patient prescribed a controlled substance at discharge?: Yes When asked, does pt state using other controlled substances?: No If prescribed controlled substance>3 days was MAPS reviewed?: Yes If Rx opioid, was Start Talking consent form obtained?: Yes Was information provided regarding opioid addiction?: Yes
== END ==
LOC: PNWHC3 10:01
PROVIDERS: ATTEND Specialist
DX: M96.1 Postlaminectomy syndrome, not elsewhere classified (principal); Z88.0 Allergy status to penicillin; Z88.1 Allergy status to other antibiotic agents; Z88.6 Allergy status to analgesic agent
CPT/HCPCS: 99212